=== PATIENT | male | born 1970 | race Caucasian/White ===

== ENCOUNTER → 2016-08-08 | Outpatient (CLI) | payer MEDICARE, MEDICAID ==
[~2016-08-08] MED LIST: /ONDA4TA IV; /THIA10TA OR; ACET65TA OR; ALLE25CA IV; AMBI10TA OR; AQUAOIN2 TOP; ATARAX OR; ATIV1TAB2 IV; ATIV1TAB2 OR; AZTREONAM IV; BACT800T5 PO; BISA10SU2 PR; CALAMINE TOP; CIPR25SS OR; CIPR500T89 PO; COLA100C PO; COLA100C2 OR; DESOWEN TOP; DULC5TAB PO; FLEEENE4 PR; FLEETS PR; HALDOL PO; HEPARIN FLUSH IV; HEPARIN SQ; KENALOG TOP; LEVA500T PO; MILKSUS OR; MULTIVIT PO; MYCOSTATIN SS; MYCOSTATIN SSP; NYST100024 TOP; NYSTATIN ORAL SS; No Historical Meds; PHEN1TAB80 PO; PRED10TA2 OR; REME30TA OR; REST15CA OR; SALINE FLUSH IV; SENN15TA2 OR; SENO8.6T5 OR; TEMA15CA2 OR; THERGRAN PO; THIA100T OR; VANCOMYCIN IV; VICO5TAB OR; VIMP150T PO; VIMP200T PO; VIMPAT PO; VISINE OU; VIST50CA OR; VITA100037 PO; VITA50003 PO; VITMTA PO; ZOLP10TA2 PO
[2016-08-08 09:40] LABS: BASO % 0.7 % (0.0-1.0); EOS # 0.2 K/mm3 (0.0-0.50); EOS % 5.4 % (0.0-3.0); LARGE UNSTAINED CELL # 0.1 K/mm3 (0.0-0.4); LARGE UNSTAINED CELL % 2.9 % (0.0-4.0); LYMPH # 1.2 K/mm3 (1.5-4.5); LYMPH % 30.2 % (24.0-44.0); MEAN CORPUSCULAR HEMOGLOBIN 31.6 pg (27.0-33.0); MEAN CORPUSCULAR HGB CONC 34.6 g/dl (32.0-36.5); MEAN CORPUSCULAR VOLUME 91.3 fl (80.0-96.0); MONO # 0.3 K/mm3 (0.0-0.8); MONO % 7.4 % (0.0-5.0); NEUTROPHILS # 2.2 K/mm3 (1.8-7.7); NEUTROPHILS % 53.4 % (36.0-66.0); PLATELET COUNT, AUTOMATED 193 k/mm3 (150-450); RED CELL DISTRIBUTION WIDTH 13.2 % (11.5-14.5)
[2016-08-08 09:46] LABS: ALBUMIN 3.8 GM/DL (3.2-5.2); ALBUMIN/GLOBULIN RATIO 1.03 (1.00-1.93); ALKALINE PHOSPHATASE 75 U/L (45-117); ALT/SGPT 29 U/L (12-78); ANION GAP 4 MEQ/L (8-16); AST/SGOT 16 U/L (15-37); BILIRUBIN,TOTAL 0.4 MG/DL (0.2-1.0); BLOOD UREA NITROGEN 14 MG/DL (7-18); CALCIUM LEVEL 9.3 MG/DL (8.5-10.1); CARBON DIOXIDE LEVEL 36 MEQ/L (21-32); CHLORIDE LEVEL 103 MEQ/L (98-107); CREATININE FOR GFR 0.63 MG/DL (0.70-1.30); GLOMERULAR FILTRATION RATE > 60.0 (>60); GLUCOSE, FASTING 78 MG/DL (70-105); SODIUM LEVEL 143 MEQ/L (136-145); TOTAL PROTEIN 7.5 GM/DL (6.4-8.2)
== END ==
LOC: M LAB 08:39
PROVIDERS: ATTEND Psychiatry & Neurology Neurology
DX: G40.009 Localization-related (focal) (partial) idiopathic epilepsy and epileptic syndromes with seizures of localized onset, not intractable, without status epilepticus (principal); S06.34 Traumatic hemorrhage of right cerebrum; G81.04 Flaccid hemiplegia affecting left nondominant side

== ENCOUNTER 2016-10-04 12:25 | Inpatient (IN) | payer MEDICARE, MEDICAID ==
[~2016-10-04] VITALS: Ht 172.7 cm; Wt 58.3 kg
[2016-10-04] MEDS ORDERED: VITA100037 PO (12:41)
[2016-10-04] MEDS ORDERED: LR 1,000 ML IV ONE ×2 (13:45→15:15)
[2016-10-04 14:54] LABS: DIFF SLIDE NUMBER 122; MEAN CORPUSCULAR HEMOGLOBIN 31.7 pg (27.0-33.0); MEAN CORPUSCULAR HGB CONC 34.4 g/dl (32.0-36.5); MEAN CORPUSCULAR VOLUME 92.1 fl (80.0-96.0); PLATELET COUNT, AUTOMATED 117 k/mm3 (150-450); RED CELL DISTRIBUTION WIDTH 13.8 % (11.5-14.5); WHITE BLOOD COUNT 16.7 K/mm3 (4.0-10.0)
[2016-10-04 15:04] LABS: BANDS 13 % (< 11); TOXIC VACUOLATION 1+
[2016-10-04 15:08] LABS: ALBUMIN 3.4 GM/DL (3.2-5.2); ALBUMIN/GLOBULIN RATIO 0.81 (1.00-1.93); ALKALINE PHOSPHATASE 102 U/L (45-117); ALT/SGPT 48 U/L (12-78); ANION GAP 9 MEQ/L (8-16); AST/SGOT 38 U/L (15-37); BILIRUBIN,TOTAL 0.4 MG/DL (0.2-1.0); BLOOD UREA NITROGEN 13 MG/DL (7-18); CALCIUM LEVEL 8.8 MG/DL (8.5-10.1); CARBON DIOXIDE LEVEL 30 MEQ/L (21-32); CHLORIDE LEVEL 100 MEQ/L (98-107); CREATININE FOR GFR 0.75 MG/DL (0.70-1.30); GLOMERULAR FILTRATION RATE > 60.0 (>60); GLUCOSE, FASTING 98 MG/DL (70-105); POTASSIUM SERUM 3.7 MEQ/L (3.5-5.1); SODIUM LEVEL 139 MEQ/L (136-145); TOTAL PROTEIN 7.6 GM/DL (6.4-8.2)
[2016-10-04] MEDS ORDERED: ACETAMINOPHEN TAB 650MG DOSE (2X325MG) PO ONE (16:30)
[2016-10-04] MEDS ORDERED: CIPROFLOXACIN 400 MG in APPROPRIATE DILUENT 1 EA IV ONE (16:30)
[2016-10-04] MEDS ORDERED: ONDANSETRON 4MG/2ML VIAL (J2405) IV PRN (17:15)
[2016-10-04] MEDS ORDERED: ACETAMINOPHEN TAB 650MG DOSE (2X325MG) PO PRN (17:15)
[2016-10-04] MEDS ORDERED: ONDANSETRON 4 MG TAB (S0181) PO PRN (17:15)
[2016-10-04] MEDS ORDERED: PERCOCET 5MG/325MG TAB PO PRN (17:15)
--- NOTE | 2016-10-04 17:38 | HPEPDOC ---
Medical History and Physical Date of Admission Oct 04, 2016 at 17:13 History and Physical HISTORY AND PHYSICAL Date of admission: 10/04/2016 PCP: Huy Callahan under Dr. Rajan Chief complaint: Not acting like his usual self HPI: 46-year-old male with history of traumatic brain injury as a child and resultant seizure disorder who was brought in to the emergency department by his brother and his caregiver because he had not been acting like himself. The brother and caregiver state that he usually passes the day doing puzzles and walks around with a cane. They state that he is usually able to answer questions with a simple yes or no. However, they noticed that yesterday he started being more lethargic and was just kind of pushing the puzzle pieces around rather than actually doing the puzzle. They also state that his favorite thing to do is eating and that yesterday and today he has hardly been eating anything. When they ask him if he is in any discomfort or pain, he points to his private area, but his caregiver tells me that he will frequently complain of being wet, 30, or other complaints and will simultaneously point to his private area. They also note, that the patient has had several falls recently where he hit his head. The caregiver states that several years ago, the patient was admitted for sepsis that turned out to be from an abscess in his prostate after an indwelling catheter. He said that at the time, the patient was in septic shock and was very sick, so he was worried when the patient was not acting like himself because he did not want him to become septic again. He denies any recent catheter use. Past medical history: History of traumatic brain injury as a child with resultant seizure disorder Past surgical history: Multiple surgeries to reconstruct his left leg following the trauma that left him with the TBI, drainage of prostate abscess several years ago Family history: His father recently of liver disease secondary to alcoholism. His mother at age 46 from a heart attack. Social history: The patient currently lives with a 24h caregiver and his brother Sin who is his legal guardian. Another brother lives across the street. The patient does not use any tobacco or alcohol. Allergies: Empire oil, penicillins, phenytoin Review of systems: Unable to be obtained secondary to the patient's TBI and inability to communicate consistently. However, his caregiver states that he has not had any fevers recently nor has he vomited. He does note, that he has been constipated. Otherwise, his symptoms are as documented in the HPI. Home meds: See below Physical exam: Vital signs: Vital Sign - Last 24 Hours 10/04/16 12:26 Temp 98.0 Pulse 118 Resp 17 B/P 100/66 Pulse Ox 98 O2 Delivery Room Air Gen.: awake, alert, no acute distress Head: small superficial laceration on left forehead, erythematous bump on right parietal area ENT: Moist mucous membranes Cardiovascular: RRR, no murmurs rubs or gallops Lungs: clear to auscultation bilaterally, no rales, rhonchi, or wheeze Abdomen: Soft, NT/ND, normal BS Extremities: No peripheral edema, LLE is in braces and is very thin Neuro: alert, limited speech abilities, kept saying "hungry, hungry" Psych: unable to assess Labs and radiology: See below White count 16.7 Lactate 2.8 Blood and urine cultures pending CT of the head shows only stable chronic changes Chest x-ray shows subtle left lower lobe opacity UA shows 2+ blood, 2+ leuk esterase, 55 WBCs, 1+ bacteria Assessment and plan: 46-year-old male with history of traumatic brain injury as a child and resultant seizure disorder who was brought in to the emergency department by his brother and his caregiver because he had not been acting like himself. He is admitted with a UTI, as well as possible community-acquired pneumonia. 1. UTI: The patient is afebrile, but he does have an elevated white count and elevated lactate. At this time, his blood pressure is stable and his mental status appears to be at baseline. A UA is concerning for infection with leuk esterase and WBCs. Of note, the UA had to be obtained by straight cath, so is possible that the blood we are seeing is from the cath. Blood and urine cultures are pending. We will start the patient on Levaquin, as well as IV fluids. Of note, the patient has a history of prostate abscess. If the patient does not show expected improvement on this treatment, it may be of value to do a CT of his pelvis and ensure that there is no abscess at this time. 2. Possible community-acquired pneumonia. Chest x-ray does mention a subtle left lower lobe opacity. However, the patient is not having any cough or other respiratory symptoms, nor is he requiring any oxygen. We have chosen Levaquin for his UTI, as this would also cover any pneumonia that may be represented on this chest x-ray. As mentioned above, blood and urine cultures are pending, and a repeat lactate will be obtained in several hours. 3. Constipation: The patient will be started on MiraLAX and Colace. If he has not had a bowel movement by tomorrow, will we could intensify this regimen. 4. Seizure disorder and history of TBI: Continue home vimpat. DVT prophylaxis: Lovenox Dispo: admit as an inpatient to the service of Dr. Estela Trimble CODE STATUS: The patient's legal guardian is his brother Sin Bush. I have called and discussed the situation with Sin, whose phone number is [phone] , and upon discussion of CODE STATUS, he revealed that the patient is DNR/DNI. Vital Signs see above Laboratory Data Labs 24H Laboratory Tests 2 10/04/16 14:38: Blood Urea Nitrogen 13, Creatinine 0.75, Sodium Level 139, Potassium Level 3.7, Chloride Level 100, Carbon Dioxide Level 30, Calcium Level 8.8, Aspartate Amino Transf (AST/SGOT) 38H, Alanine Aminotransferase (ALT/SGPT) 48, Alkaline Phosphatase 102, Total Bilirubin 0.4, Total Protein 7.6, Albumin 3.4, Albumin/ Globulin Ratio 0.81L, Anion Gap 9, Band Neutrophils 13H, Glomerular Filtration Rate > 60.0, Lymphocytes (Manual) 3L, Monocytes (Manual) 2, Neutrophils 82H, Platelet Estimate DECREASED, Toxic Vacuolation 1+ 10/04/16 14:39: Lactic Acid (Sepsis) 2.8*H 10/04/16 15:50: Urine Amorphous Sediment , Urine Appearance HAZY, Urine Color WAQAS, Urine pH 6.0, Urine Specific [place] 1.024, Urine Protein 2+H, Urine Glucose (UA) 2+H, Urine Ketones TRACEH, Urine Urobilinogen 2.0H, Urine Bilirubin NEGATIVE, Urine Leukocyte Esterase 2+H, Urine Bacteria (Auto) 1+H, Urine Blood 2+H, Urine Calcium Carbonate Cryst(Auto) , Urine Calcium Oxalate Cryst (Auto) , Urine Calcium Phosphate Christina (Auto) , Urine Cellular Casts , Urine Cystine Crystals , Urine Granular Casts (Auto) , Urine Hyaline Casts (Auto) 0, Urine Leucine Crystals , Urine Mucus (Auto) SMALL, Urine Nitrite NEGATIVE, Urine Oval Fat Bodies (Auto) , Urine RBC (Auto) 90H, Urine Renal Epithelial Cells , Urine Sperm (Auto) , Urine Squamous Epithelial Cells 0, Urine Transitional Epithelial Cells , Urine Trichomonas (Auto) , Urine Triple Phosphate Cryst (Auto) , Urine Tyrosine Crystals , Urine Uric Acid Crystals (Auto) , Urine WBC (Auto) 55H, Urine Waxy Casts (Auto) , Urine Yeast-Like Cells (Auto) CBC/BMP Laboratory Tests 10/04/16 14:38 Calcium Level 8.8, Aspartate Amino Transf (AST/SGOT) 38 H, Alanine Aminotransferase (ALT/SGPT) 48, Alkaline Phosphatase 102, Total Bilirubin 0.4, Total Protein 7.6, Albumin 3.4, Red Blood Count 4.82, Mean Corpuscular Volume 92.1, Mean Corpuscular Hemoglobin 31.7, Mean Corpuscular Hemoglobin Concent 34.4 , Red Cell Distribution Width 13.8 Microbiology Microbiology 10/04/16 Blood Culture, Received Pending 10/04/16 Urine Culture, Received Pending Home Medications Scheduled Lacosamide (Vimpat) 200 Mg Tab 200 MG PO BID Multivitamins *[facility] STOCK[facility]* (Thera M Plus *[facility] STOCK[facility]*) 1 Tab Tab 1 TAB PO DAILY Vitamin D (Vitamin D) 1,000 Unit Cap 1,000 UNIT PO DAILY Scheduled PRN (Phytoplex Z-Guard Skin Pr 57-17 %) 1 Pst Pst 1 PST TOP BID PRN PRN RASH APPLY TO SHINS Docusate Sodium (Colace) 100 Mg Cap 100 MG PO BID PRN PRN CONSTIPATION Allergies Coded Allergies: Phenytoin (Verified Allergy, Severe, RASH, 10/25/12) Penicillins (Verified Allergy, Mild, HIVES, 10/25/12) Empire Oil (Verified Adverse Reaction, Intermediate, DIARRHEA, 10/04/16) has explosive diarrhea when pt eats an entire can of corn, has had other corn products throughout his life without issue. MERVIN CHOUDHARY Oct 04, 2016 17:38
[2016-10-04] MEDS ORDERED: [UNRECOGNIZED DRUG - CODE] TOP (17:45)
[2016-10-04] MEDS ORDERED: DOCUSATE SODIUM 100 MG CAP PO PRN (19:15)
[2016-10-04 20:00] VITALS: BP 106/59
[2016-10-04] MEDS: MULTIVITAMINS/MINERALS THERAP 1 TAB PO SCH (20:29)
[2016-10-04] MEDS: LevoFLOXacin IV 750 MG in APPROPRIATE DILUENT 1 EA IV SCH (20:29)
[2016-10-04] MEDS: VITAMIN D 1,000 INTERNATIONAL UNITS TABLET PO SCH (20:29)
[2016-10-04] MEDS: LACOSAMIDE 50 MG TAB (VIMPAT) PO SCH (20:29)
[2016-10-04] MEDS: NS 1,000 ML IV SCH (20:31)
[2016-10-05] VITALS: BP 92/56
[2016-10-05 04:00] VITALS: BP 109/67
[2016-10-05 06:58] LABS: DIFF SLIDE NUMBER 76; MEAN CORPUSCULAR HEMOGLOBIN 31.4 pg (27.0-33.0); MEAN CORPUSCULAR HGB CONC 34.7 g/dl (32.0-36.5); MEAN CORPUSCULAR VOLUME 90.5 fl (80.0-96.0); RED CELL DISTRIBUTION WIDTH 13.7 % (11.5-14.5); WHITE BLOOD COUNT 14.9 K/mm3 (4.0-10.0)
--- NOTE | 2016-10-05 07:00 | REP ---
REASON: Headache, rule out intracranial hemorrhage. COMPARISON: 10/21/2014. There is stable left frontal lobe encephalomalacic change. There is deep white matter ischemic disease, status quo. There is an old unchanged lacunar infarct in the right frontal lobe deep white matter. There is no evidence of an acute intracranial hemorrhagic or nonhemorrhagic event. The ventricles and sulci are unchanged. There is no shift of the midline structures. There is no change in the appearance of the skull. There is no change in the appearance of the paranasal sinuses. IMPRESSION: Stable appearing chronic changes as described above. Signed by Frank Fulton DO 10/05/2016 12:05 P
--- NOTE | 2016-10-05 07:07 | REP ---
REASON: Cough and fever. COMPARISON: 07/25/2015. The patient is tilted and rotated to the left. There is a subtle focal opacity in the left CP angle causing minimal blunting. Lung osorio are otherwise clear and the right CP angle is sharp. The heart is not enlarged. The osseous structures are within normal limits. IMPRESSION: Possible subsegmental atelectasis versus early developing pneumonia in the left lower lobe as described above. Signed by Frank Fulton DO 10/05/2016 12:05 P
[2016-10-05 07:10] LABS: ANION GAP 6 MEQ/L (8-16); BLOOD UREA NITROGEN 9 MG/DL (7-18); CALCIUM LEVEL 8.6 MG/DL (8.5-10.1); CARBON DIOXIDE LEVEL 29 MEQ/L (21-32); CHLORIDE LEVEL 106 MEQ/L (98-107); CREATININE FOR GFR 0.68 MG/DL (0.70-1.30); GLOMERULAR FILTRATION RATE > 60.0 (>60); GLUCOSE, FASTING 86 MG/DL (70-105); MAGNESIUM LEVEL 1.6 MG/DL (1.8-2.4); POTASSIUM SERUM 3.6 MEQ/L (3.5-5.1); SODIUM LEVEL 141 MEQ/L (136-145)
[2016-10-05 07:26] LABS: PLATELET COUNT, AUTOMATED 87 k/mm3 (150-450)
[2016-10-05] MEDS: ENOXAPARIN 40 MG/0.4 ML SYRINGE (J1650) SC SCH (07:29)
[2016-10-05 07:32] LABS: BANDS 12 % (< 11)
[2016-10-05 08:00] VITALS: BP 96/58
[2016-10-05] MEDS: NS 1,000 ML IV SCH ×3 (08:16→20:13)
[2016-10-05] MEDS: VITAMIN D 1,000 INTERNATIONAL UNITS TABLET PO SCH (10:02)
[2016-10-05] MEDS: MIRALAX *UNIT DOSE* 17GM PACKET PO SCH (10:03)
[2016-10-05] MEDS: MULTIVITAMINS/MINERALS THERAP 1 TAB PO SCH (10:03)
[2016-10-05] MEDS: LACOSAMIDE 50 MG TAB (VIMPAT) PO SCH ×2 (10:03→20:13)
[2016-10-05 12:00] VITALS: BP 98/53
[2016-10-05] MEDS: MAG SULF 1GM/100ML (MAG RUN) 1 GM in APPROPRIATE DILUENT 1 EA IV SCH ×2 (12:09→13:23)
--- NOTE | 2016-10-05 12:13 | IPNPDOC ---
Date Seen The patient was seen on 10/05/16. Progress Note Subjective: Better this morning , almost back to baseline mental status, doing word searches, no fever this morning, ate breakfast, had good urine output. Vitals: Vital Signs Label Value Date Time Patient Temperature 98.1 degrees F 10/05/16 1200 Temperature Source Skin 10/05/16 1200 Pulse 111 10/05/16 1200 Respiratory Rate 18 bpm 10/05/16 1200 Blood Pressure Assessment 98/53 (68) 10/05/161199 Bedside Pulse Oximetry 97 % 10/05/161199 Item Value Date Time Oxygen Delivery Method Room Air 10/05/16 1200 Physical exam: Gen.: awake, alert, no acute distress Head: small superficial laceration on left forehead, erythematous bump on right parietal area ENT: Moist mucous membranes Cardiovascular: RRR, no murmurs rubs or gallops Lungs: clear to auscultation bilaterally, no rales, rhonchi, or wheeze Abdomen: Soft, NT/ND, normal BS Extremities: No peripheral edema, LLE is in braces and is very thin Neuro: alert, limited speech abilities, kept saying "hungry, hungry" Psych: unable to assess Assessment and plan: 46-year-old male with history of traumatic brain injury as a child and resultant seizure disorder who was brought in to the emergency department by his brother and his caregiver because he had not been acting like himself. He is admitted with a UTI, as well as possible community-acquired pneumonia. 1. UTI: The patient is afebrile, but he does have an elevated white count and elevated lactate. At this time, his blood pressure is stable and his mental status appears to be at baseline. A UA is concerning for infection with leuk esterase and WBCs. Of note, the UA had to be obtained by straight cath, so is possible that the blood we are seeing is from the cath. Blood and urine cultures are pending. We willcontinue Levaquin. Of note, the patient has a history of prostate abscess. If the patient does not show expected improvement on this treatment, it may be of value to do a CT of his pelvis and ensure that there is no abscess at this time. 2. Possible community-acquired pneumonia. Chest x-ray does mention a subtle left lower lobe opacity. However, the patient is not having any cough or other respiratory symptoms, nor is he requiring any oxygen. We have chosen Levaquin for his UTI, as this would also cover any pneumonia that may be represented on this chest x-ray. As mentioned above, blood and urine cultures are pending, and a repeat lactate will be obtained in several hours. 3. Constipation: The patient will be started on MiraLAX and Colace. If he has not had a bowel movement by tomorrow, will we could intensify this regimen. 4. Seizure disorder and history of TBI: Continue home vimpat. 5: Traumatic brain injury at age 11 years. 6. Sinus tachycardia DVT : TEDS, will hold heparin as thrombocytopenia. CODE STATUS: The patient's legal guardian is his brother Sin Bush. I have called and discussed the situation with Sin, whose phone number is [phone] , and upon discussion of CODE STATUS, he revealed that the patient is DNR/DNI. VS, I&O, 24H, Fishbone Vital Signs/I&O Vital Signs Date Time Temp Pulse Resp B/P Pulse Ox O2 Delivery O2 Flow Rate FiO2 10/05/16 12:00 98.1 111 18 98/53 97 Room Air I&O- Last 24 Hours up to 6 AM 10/05/16 05:59 Intake Total 240 ml Balance 240 ml Laboratory Data 24H LABS Laboratory Tests 2 10/04/16 14:38: Blood Urea Nitrogen 13, Creatinine 0.75, Sodium Level 139, Potassium Level 3.7, Chloride Level 100, Carbon Dioxide Level 30, Calcium Level 8.8, Aspartate Amino Transf (AST/SGOT) 38H, Alanine Aminotransferase (ALT/SGPT) 48, Alkaline Phosphatase 102, Total Bilirubin 0.4, Total Protein 7.6, Albumin 3.4, Albumin/ Globulin Ratio 0.81L, Anion Gap 9, Band Neutrophils 13H, Glomerular Filtration Rate > 60.0, Lymphocytes (Manual) 3L, Monocytes (Manual) 2, Neutrophils 82H, Platelet Estimate DECREASED, Toxic Vacuolation 1+ 10/04/16 14:39: Lactic Acid (Sepsis) 2.8*H 10/04/16 15:50: Urine Amorphous Sediment , Urine Appearance HAZY, Urine Color WAQAS, Urine pH 6.0, Urine Specific [place] 1.024, Urine Protein 2+H, Urine Glucose (UA) 2+H, Urine Ketones TRACEH, Urine Urobilinogen 2.0H, Urine Bilirubin NEGATIVE, Urine Leukocyte Esterase 2+H, Urine Bacteria (Auto) 1+H, Urine Blood 2+H, Urine Calcium Carbonate Cryst(Auto) , Urine Calcium Oxalate Cryst (Auto) , Urine Calcium Phosphate Christina (Auto) , Urine Cellular Casts , Urine Cystine Crystals , Urine Granular Casts (Auto) , Urine Hyaline Casts (Auto) 0, Urine Leucine Crystals , Urine Mucus (Auto) SMALL, Urine Nitrite NEGATIVE, Urine Oval Fat Bodies (Auto) , Urine RBC (Auto) 90H, Urine Renal Epithelial Cells , Urine Sperm (Auto) , Urine Squamous Epithelial Cells 0, Urine Transitional Epithelial Cells , Urine Trichomonas (Auto) , Urine Triple Phosphate Cryst (Auto) , Urine Tyrosine Crystals , Urine Uric Acid Crystals (Auto) , Urine WBC (Auto) 55H, Urine Waxy Casts (Auto) , Urine Yeast-Like Cells (Auto) 10/04/16 20:03: Lactic Acid (Sepsis) 1.2 10/05/16 06:34: Anion Gap 6L, Atypical Lymphocytes 3, Band Neutrophils 12H, Blood Urea Nitrogen 9, Creatinine 0.68L, Sodium Level 141, Potassium Level 3.6, Chloride Level 106, Carbon Dioxide Level 29, Calcium Level 8.6, Glomerular Filtration Rate > 60.0, Lymphocytes (Manual) 6L, Magnesium Level 1.6L, Monocytes (Manual) 7, Neutrophils 72, Platelet Estimate NORMAL, Red Blood Cell Morphology NORMAL CBC/BMP Laboratory Tests 10/04/16 14:38 Calcium Level 8.8, Aspartate Amino Transf (AST/SGOT) 38 H, Alanine Aminotransferase (ALT/SGPT) 48, Alkaline Phosphatase 102, Total Bilirubin 0.4, Total Protein 7.6, Albumin 3.4, Red Blood Count 4.82, Mean Corpuscular Volume 92.1, Mean Corpuscular Hemoglobin 31.7, Mean Corpuscular Hemoglobin Concent 34.4 , Red Cell Distribution Width 13.8 10/05/16 06:34 Calcium Level 8.6, Red Blood Count 4.25 L, Mean Corpuscular Volume 90.5, Mean Corpuscular Hemoglobin 31.4, Mean Corpuscular Hemoglobin Concent 34.7, Red Cell Distribution Width 13.7 Microbiology Microbiology 10/04/16 Blood Culture, Received Pending 10/04/16 Urine Culture, Received Pending ASHUTOSH HAM MD Oct 05, 2016 12:13
--- NOTE | 2016-10-05 13:34 | REP ---
Left foot series: Two views. History: Swelling and redness. Findings: AP and lateral views of the left foot demonstrate diffuse osteopenia and a pes equinus orientation suggesting neuromuscular disease. There is some irregularity at the tibiotalar articulation at the ankle. No fracture or bony erosive change is seen. No soft tissue gas or opaque foreign body noted. Impression: Diffuse osteopenia. No acute bony abnormality. Signed by Kurt Rhoades MD 10/05/2016 07:17 P
[2016-10-05 15:30] VITALS: BP 120/70
[2016-10-05] MEDS: LevoFLOXacin IV 750 MG in APPROPRIATE DILUENT 1 EA IV SCH (20:13)
[2016-10-05 22:00] VITALS: BP 134/71
[2016-10-06] MEDS: NS 1,000 ML IV SCH ×2 (05:57→20:49)
[2016-10-06 06:00] VITALS: BP 137/91
[2016-10-06 07:10] LABS: BASO % 0.1 % (0.0-1.0); EOS % 0.2 % (0.0-3.0); LARGE UNSTAINED CELL # 0.2 K/mm3 (0.0-0.4); LARGE UNSTAINED CELL % 1.6 % (0.0-4.0); LYMPH # 0.4 K/mm3 (1.5-4.5); LYMPH % 3.4 % (24.0-44.0); MEAN CORPUSCULAR HEMOGLOBIN 31.7 pg (27.0-33.0); MEAN CORPUSCULAR HGB CONC 34.6 g/dl (32.0-36.5); MEAN CORPUSCULAR VOLUME 91.5 fl (80.0-96.0); MONO # 0.5 K/mm3 (0.0-0.8); MONO % 3.6 % (0.0-5.0); NEUTROPHILS % 91.1 % (36.0-66.0); RED CELL DISTRIBUTION WIDTH 13.9 % (11.5-14.5); WHITE BLOOD COUNT 13.2 K/mm3 (4.0-10.0)
[2016-10-06 07:13] LABS: PLATELET COUNT, AUTOMATED 78 k/mm3 (150-450)
[2016-10-06 07:22] LABS: ANION GAP 9 MEQ/L (8-16); BLOOD UREA NITROGEN 8 MG/DL (7-18); CALCIUM LEVEL 7.9 MG/DL (8.5-10.1); CARBON DIOXIDE LEVEL 26 MEQ/L (21-32); CHLORIDE LEVEL 102 MEQ/L (98-107); CREATININE FOR GFR 0.55 MG/DL (0.70-1.30); GLOMERULAR FILTRATION RATE > 60.0 (>60); GLUCOSE, FASTING 89 MG/DL (70-105); MAGNESIUM LEVEL 1.6 MG/DL (1.8-2.4); POTASSIUM SERUM 3.3 MEQ/L (3.5-5.1); SODIUM LEVEL 137 MEQ/L (136-145)
[2016-10-06] MEDS: LACOSAMIDE 50 MG TAB (VIMPAT) PO SCH ×2 (08:23→20:50)
[2016-10-06] MEDS: MIRALAX *UNIT DOSE* 17GM PACKET PO SCH (08:23)
[2016-10-06] MEDS: MULTIVITAMINS/MINERALS THERAP 1 TAB PO SCH (08:23)
[2016-10-06] MEDS: VITAMIN D 1,000 INTERNATIONAL UNITS TABLET PO SCH (08:23)
[2016-10-06] MEDS: ENOXAPARIN 40 MG/0.4 ML SYRINGE (J1650) SC SCH (08:28)
[2016-10-06] MEDS ORDERED: MAG SULF 1GM/100ML (MAG RUN) 1 GM in APPROPRIATE DILUENT 1 EA IV ONE (11:00)
[2016-10-06] MEDS ORDERED: POTASSIUM CHLORIDE 10 MEQ SR TABLET PO ONE (11:00)
[2016-10-06 14:00] VITALS: BP 107/69
--- NOTE | 2016-10-06 14:14 | IPNPDOC ---
Subjective Date Seen The patient was seen on 10/06/16. Subjective Chief Complaint/HPI The patient is a 46-year-old male admitted with a reason for visit of UTI. Events since last encounter pt seen and examined, pt was resting comfortable, adult caregiver and brother were at bedside, no overnight events per nursing staff Objective Physical Examination General Exam: Positive: No Acute Distress Eye Exam: Positive: PERRLA Neck Exam: Positive: Supple Chest Exam: Positive: Clear to auscultation, Normal air movement Heart Exam: Positive: Rate Normal Abdomen Exam: Positive: Normal bowel sounds, Soft Extremity Exam: Positive: Normal pulses, Negative: Clubbing, Cyanosis, Edema Assessment /Plan Problems (1) Hypokalemia Status: Acute Problem Text: * will replace and recheck (2) Hypomagnesemia Status: Acute Problem Text: * replace and recheck (3) UTI (urinary tract infection) Status: Acute Problem Text: * ecoli, will switch to oral antibiotics (4) Traumatic brain injury Status: Chronic Plan/VTE VTE Prophylaxis Ordered?: Yes Plan/Urinary Catheter Reason for insertion/continuin: Critical Pt monitoring VS, I&O, 24H, [facility] Vital Signs/I&O Vital Signs Date Time Temp Pulse Resp B/P Pulse Ox O2 Delivery O2 Flow Rate FiO2 10/06/16 06:26 18 96 10/06/16 06:00 96.5 116 137/91 Room Air I&O- Last 24 Hours up to 6 AM 10/06/16 06:00 Intake Total 1830 ml Output Total 0 ml Balance 1830 ml Laboratory Data 24H LABS Laboratory Tests 2 10/06/16 06:11: Anion Gap 9, White Blood Count 13.2H, Red Blood Count 4.11L, Hemoglobin 13.0L, Hematocrit 37.6L, Mean Corpuscular Volume 91.5, Mean Corpuscular Hemoglobin 31.7 , Mean Corpuscular Hemoglobin Concent 34.6, Red Cell Distribution Width 13.9, Platelet Count 78L, Neutrophils (%) (Auto) 91.1H, Lymphocytes (%) (Auto) 3.4L, Monocytes (%) (Auto) 3.6, Eosinophils (%) (Auto) 0.2, Basophils (%) (Auto) 0.1, Neutrophils # (Auto) 12.0H, Lymphocytes # (Auto) 0.4L, Monocytes # (Auto) 0.5, Eosinophils # (Auto) 0.0, Basophils # (Auto) 0.0, Blood Urea Nitrogen 8, Creatinine 0.55L, Sodium Level 137, Potassium Level 3.3L, Chloride Level 102, Carbon Dioxide Level 26, Calcium Level 7.9L, Glomerular Filtration Rate > 60.0, Large Unclassified Cells # 0.2, Large Unclassified Cells % 1.6, Magnesium Level 1.6L CBC/BMP Laboratory Tests 10/06/16 06:11 Calcium Level 7.9 L, Red Blood Count 4.11 L, Mean Corpuscular Volume 91.5, Mean Corpuscular Hemoglobin 31.7, Mean Corpuscular Hemoglobin Concent 34.6, Red Cell Distribution Width 13.9, Neutrophils (%) (Auto) 91.1 H, Lymphocytes (%) (Auto) 3.4 L, Monocytes (%) (Auto) 3.6, Eosinophils (%) (Auto) 0.2, Basophils (%) (Auto ) 0.1, Neutrophils # (Auto) 12.0 H, Lymphocytes # (Auto) 0.4 L, Monocytes # ( Auto) 0.5, Eosinophils # (Auto) 0.0, Basophils # (Auto) 0.0 Microbiology Microbiology 10/04/16 Blood Culture - Preliminary, Resulted No growth after 24 hours . All specim... 10/04/16 Urine Culture - Final, Complete Escherichia Coli RENITA JUNG DO Oct 06, 2016 14:14
--- NOTE | 2016-10-06 15:03 | REP ---
Chest a sitting AP and lateral views: Comparison is 10/04/2016. There is increased density in the lower lobes on the lateral view as an interval change. This could be artifact from an incomplete inspiratory effort or could represent new lower lobe infiltrates. Correlate clinically. There are no pleural effusions. Cardiac size is normal. The deshawn, mediastinum, bony thorax are unremarkable except for scoliosis convex right. The patient is rotated. Impression: Possible interval occurrence of lower lobe infiltrates. Correlate clinically. Signed by Beau Soria MD 10/06/2016 02:55 P
[2016-10-06] MEDS: LevoFLOXacin 750 MG TABLET PO SCH (16:58)
[2016-10-06 22:00] VITALS: BP 122/77
[2016-10-07] MEDS: NS 1,000 ML IV SCH ×2 (05:51→16:48)
[2016-10-07 06:00] VITALS: BP 114/59
[2016-10-07] MEDS: LevoFLOXacin 750 MG TABLET PO SCH (06:07)
[2016-10-07 08:22] LABS: ANION GAP 8 MEQ/L (8-16); BLOOD UREA NITROGEN 8 MG/DL (7-18); CALCIUM LEVEL 7.7 MG/DL (8.5-10.1); CARBON DIOXIDE LEVEL 27 MEQ/L (21-32); CHLORIDE LEVEL 104 MEQ/L (98-107); CREATININE FOR GFR 0.59 MG/DL (0.70-1.30); GLOMERULAR FILTRATION RATE > 60.0 (>60); GLUCOSE, FASTING 99 MG/DL (70-105); MAGNESIUM LEVEL 1.7 MG/DL (1.8-2.4); POTASSIUM SERUM 3.5 MEQ/L (3.5-5.1); SODIUM LEVEL 139 MEQ/L (136-145)
[2016-10-07 08:36] LABS: BASO % 0.2 % (0.0-1.0); EOS # 0.1 K/mm3 (0.0-0.50); EOS % 0.8 % (0.0-3.0); LARGE UNSTAINED CELL # 0.2 K/mm3 (0.0-0.4); LARGE UNSTAINED CELL % 3.1 % (0.0-4.0); LYMPH # 0.9 K/mm3 (1.5-4.5); LYMPH % 9.2 % (24.0-44.0); MEAN CORPUSCULAR HEMOGLOBIN 31.4 pg (27.0-33.0); MEAN CORPUSCULAR HGB CONC 34.3 g/dl (32.0-36.5); MEAN CORPUSCULAR VOLUME 91.7 fl (80.0-96.0); MONO # 0.5 K/mm3 (0.0-0.8); MONO % 6.8 % (0.0-5.0); NEUTROPHILS # 5.6 K/mm3 (1.8-7.7); NEUTROPHILS % 79.9 % (36.0-66.0); RED CELL DISTRIBUTION WIDTH 14.2 % (11.5-14.5)
[2016-10-07 09:44] LABS: PLATELET COUNT, AUTOMATED 88 k/mm3 (150-450)
[2016-10-07] MEDS: VITAMIN D 1,000 INTERNATIONAL UNITS TABLET PO SCH (10:24)
[2016-10-07] MEDS: MULTIVITAMINS/MINERALS THERAP 1 TAB PO SCH (10:24)
[2016-10-07] MEDS: LACOSAMIDE 50 MG TAB (VIMPAT) PO SCH ×2 (10:25→21:07)
[2016-10-07] MEDS: MIRALAX *UNIT DOSE* 17GM PACKET PO SCH (10:25)
[2016-10-07 14:00] VITALS: BP 135/73
--- NOTE | 2016-10-07 20:13 | IPNPDOC ---
Subjective Date Seen The patient was seen on 10/07/16. Subjective Chief Complaint/HPI The patient is a 46-year-old male admitted with a reason for visit of UTI. General: Reports: ROS Unobtainable Objective Physical Examination General Exam: Positive: No Acute Distress Eye Exam: Positive: PERRLA Neck Exam: Positive: Supple Chest Exam: Positive: Clear to auscultation, Normal air movement Heart Exam: Positive: Rate Normal Abdomen Exam: Positive: Normal bowel sounds, Soft Extremity Exam: Positive: Normal pulses, Negative: Clubbing, Cyanosis, Edema Assessment /Plan Problems (1) UTI (urinary tract infection) Status: Acute Problem Text: * ecoli, continue antibiotics * will d/c in am (2) Hypokalemia Status: Resolved (3) Hypomagnesemia Status: Acute (4) Traumatic brain injury Status: Chronic Plan/VTE VTE Prophylaxis Ordered?: Yes Plan/Urinary Catheter Reason for insertion/continuin: Critical Pt monitoring VS, I&O, 24H, Fishbone Vital Signs/I&O Vital Signs Date Time Temp Pulse Resp B/P Pulse Ox O2 Delivery O2 Flow Rate FiO2 10/07/16 14:00 98.2 114 18 135/73 97 Room Air I&O- Last 24 Hours up to 6 AM 10/07/16 06:00 Intake Total 2640 ml Output Total 0 ml Balance 2640 ml Laboratory Data 24H LABS Laboratory Tests 2 10/07/16 06:52: Anion Gap 8, White Blood Count 7.0, Red Blood Count 4.10L, Hemoglobin 12.9L, Hematocrit 37.6L, Mean Corpuscular Volume 91.7, Mean Corpuscular Hemoglobin 31.4 , Mean Corpuscular Hemoglobin Concent 34.3, Red Cell Distribution Width 14.2, Platelet Count 88L, Neutrophils (%) (Auto) 79.9H, Lymphocytes (%) (Auto) 9.2L, Monocytes (%) (Auto) 6.8H, Eosinophils (%) (Auto) 0.8, Basophils (%) (Auto) 0.2 , Neutrophils # (Auto) 5.6, Lymphocytes # (Auto) 0.9L, Monocytes # (Auto) 0.5, Eosinophils # (Auto) 0.1, Basophils # (Auto) 0.0, Blood Urea Nitrogen 8, Creatinine 0.59L, Sodium Level 139, Potassium Level 3.5, Chloride Level 104, Carbon Dioxide Level 27, Calcium Level 7.7L, Glomerular Filtration Rate > 60.0, Large Unclassified Cells # 0.2, Large Unclassified Cells % 3.1, Magnesium Level 1.7L CBC/BMP Laboratory Tests 10/07/16 06:52 Calcium Level 7.7 L, Red Blood Count 4.10 L, Mean Corpuscular Volume 91.7, Mean Corpuscular Hemoglobin 31.4, Mean Corpuscular Hemoglobin Concent 34.3, Red Cell Distribution Width 14.2, Neutrophils (%) (Auto) 79.9 H, Lymphocytes (%) (Auto) 9.2 L, Monocytes (%) (Auto) 6.8 H, Eosinophils (%) (Auto) 0.8, Basophils (%) ( Auto) 0.2, Neutrophils # (Auto) 5.6, Lymphocytes # (Auto) 0.9 L, Monocytes # ( Auto) 0.5, Eosinophils # (Auto) 0.1, Basophils # (Auto) 0.0 Microbiology Microbiology 10/04/16 Blood Culture - Preliminary, Resulted No Growth after 72 hours. All specime... 10/04/16 Urine Culture - Final, Complete Escherichia Coli RENITA JUNG DO Oct 07, 2016 20:13
[2016-10-07 22:00] VITALS: BP 117/71
[2016-10-08] MEDS: NS 1,000 ML IV SCH ×2 (02:27→12:00)
[2016-10-08] MEDS: LevoFLOXacin 750 MG TABLET PO SCH (05:28)
[2016-10-08 06:00] VITALS: BP 117/64
[2016-10-08 06:50] LABS: BASO % 0.4 % (0.0-1.0); EOS # 0.1 K/mm3 (0.0-0.50); EOS % 2.4 % (0.0-3.0); LARGE UNSTAINED CELL # 0.3 K/mm3 (0.0-0.4); LARGE UNSTAINED CELL % 5.5 % (0.0-4.0); LYMPH % 19.1 % (24.0-44.0); MEAN CORPUSCULAR HEMOGLOBIN 30.4 pg (27.0-33.0); MEAN CORPUSCULAR HGB CONC 33.4 g/dl (32.0-36.5); MEAN CORPUSCULAR VOLUME 91.1 fl (80.0-96.0); MONO # 0.4 K/mm3 (0.0-0.8); MONO % 7.4 % (0.0-5.0); NEUTROPHILS # 3.5 K/mm3 (1.8-7.7); NEUTROPHILS % 65.1 % (36.0-66.0); PLATELET COUNT, AUTOMATED 109 k/mm3 (150-450); RED CELL DISTRIBUTION WIDTH 14.3 % (11.5-14.5); WHITE BLOOD COUNT 5.3 K/mm3 (4.0-10.0)
[2016-10-08 07:07] LABS: ANION GAP 9 MEQ/L (8-16); BLOOD UREA NITROGEN 11 MG/DL (7-18); CALCIUM LEVEL 8.1 MG/DL (8.5-10.1); CARBON DIOXIDE LEVEL 26 MEQ/L (21-32); CHLORIDE LEVEL 108 MEQ/L (98-107); CREATININE FOR GFR 0.63 MG/DL (0.70-1.30); GLOMERULAR FILTRATION RATE > 60.0 (>60); GLUCOSE, FASTING 90 MG/DL (70-105); MAGNESIUM LEVEL 1.9 MG/DL (1.8-2.4); POTASSIUM SERUM 3.8 MEQ/L (3.5-5.1); SODIUM LEVEL 143 MEQ/L (136-145)
[2016-10-08] MEDS ORDERED: LEVA750T PO (08:22)
[2016-10-08] MEDS: VITAMIN D 1,000 INTERNATIONAL UNITS TABLET PO SCH (09:54)
[2016-10-08] MEDS: MIRALAX *UNIT DOSE* 17GM PACKET PO SCH (09:54)
[2016-10-08] MEDS: LACOSAMIDE 50 MG TAB (VIMPAT) PO SCH (09:54)
[2016-10-08] MEDS: MULTIVITAMINS/MINERALS THERAP 1 TAB PO SCH (09:54)
--- NOTE | 2016-10-15 12:45 | DSES ---
DATE OF ADMISSION: 10/04/2016 DATE OF DISCHARGE: 10/08/2016 REASON FOR ADMISSION: Urinary tract infection (UTI). FINAL DIAGNOSES: 1. Urinary tract infection Escherichia (E) coli. 2. Hypokalemia. 3. Hypomagnesemia. 4. Traumatic brain injury. 5. Patient has a history of seizures. HISTORY OF PRESENT ILLNESS (HPI): Patient is a 46-year-old male with past medical history significant for traumatic brain injury resulting in seizure disorder presented to the emergency room with caregivers stating that he has not been acting himself. His brother and caregiver stated that he usually passes the day doing puzzles and walking around with a cane. However, they have noted that he has been unable to answer questions like at his baseline using simple yes or no. They have noted that he is becoming more lethargic, pushing the puzzles away. In the emergency room, he was noted to have some discomfort, pointing to his private area. Patient was found to have abnormal urinalysis. He was diagnosed with UTI and possible community-acquired pneumonia. Patient was started on antibiotics, intravenous (IV) Levaquin and was admitted under hospitalist service. HOSPITAL COURSE: Urine culture came back positive for E-coli, it was pansensitive, sensitive to Levaquin that patient was on and tolerating well. His leukocytosis that was initially 16.7 had resolved by the time of discharge to 5.3. Patient did not have any fevers during the hospitalization and prior to discharge patient was back to his baseline per the caregivers and his brother. His potassium was slightly low at some point at 3.3, which was replaced and his magnesium was also at 1.6, which was also replaced. On discharge, patient's electrolytes were within normal limits. He was back to baseline mentation. He was discharged to follow up with primary care provider. Diet soft. Activities as tolerated. Discharge medications include: - Levaquin 750 mg by mouth daily - Colace 100 mg by mouth twice a day as needed, constipation - Vimpat 200 mg by mouth twice a day - multivitamin one tablet by mouth daily - vitamin E 1000 units by mouth daily - Z-Guard skin preparation topically twice a day as needed, rash Discharge condition stable.
== END 2016-10-08 12:20 | disposition home or self-care (01) | DRG 690 ==
LOC: M ED 13:42 → M ED INP 17:13 → M MSPAV 10-05 15:15
PROVIDERS: ADMIT Hospitalist; ATTEND Internal Medicine
DX: N39.0 Urinary tract infection, site not specified (principal); K59.00 Constipation, unspecified; G40.909 Epilepsy, unspecified, not intractable, without status epilepticus; E83.42 Hypomagnesemia; E87.6 Hypokalemia; B96.20 Unspecified Escherichia coli [E. coli] as the cause of diseases classified elsewhere; Z66 Do not resuscitate; Z87.820 Personal history of traumatic brain injury; Z79.899 Other long term (current) drug therapy; Z88.0 Allergy status to penicillin; Z88.8 Allergy status to other drugs, medicaments and biological substances; Z91.018 Allergy to other foods

== ENCOUNTER 2016-10-24 09:36 | Inpatient (IN) | payer MEDICARE, MEDICAID ==
[~2016-10-24] VITALS: Ht 170.2 cm; Wt 59.1 kg
[~2016-10-24 09:36] MED LIST changes: -COLA100C PO; +COLA100C3 PO; +LEVA750T PO; +[UNRECOGNIZED DRUG - CODE] TOP
[2016-10-24] MEDS ORDERED: ONDANSETRON 4MG/2ML VIAL (J2405) IV ONE ×2 (10:15→11:15)
[2016-10-24] MEDS ORDERED: DILUENT IV ONE (10:15)
[2016-10-24] MEDS ORDERED: NS IV ONE (10:15)
--- NOTE | 2016-10-24 10:35 | REP ---
Clinical: Sepsis. Comparison: 10/06/2016. Findings: Mediastinum and cardiac silhouette are stable. Lung osorio demonstrate chronic changes. No obvious acute consolidation, effusion, or pneumothorax. Skeletal structures intact. Impression: Chronic stable changes. No acute cardiopulmonary process. Signed by Ronny Driver MD 10/24/2016 10:27 A
--- NOTE | 2016-10-24 10:51 | REP ---
Clinical: Altered mental status. Comparison: 10/04/2016. Findings: The ventricles, sulci, and cisterns are normal/stable in position and appearance. Wells-white differentiation is maintained. Subtle low density changes involving the right frontal lobe and bilateral basal ganglia are unchanged. No acute intracranial hemorrhage, mass/mass effect, pathology or trauma/injury. No evidence for acute infarction. No extra-axial fluid collection. Calvarium is intact. Paranasal sinuses and mastoid air cells are clear. Impression: Stable noncontrast head CT. No evidence for acute intracranial pathology or trauma/injury. Signed by Ronny Driver MD 10/24/2016 10:42 A
[2016-10-24] MEDS ORDERED: ISOVUE-370 76% 100ML VIAL (Q9967) As Ordered ONE (11:23)
--- NOTE | 2016-10-24 11:55 | REP ---
Clinical: Acute chest and abdominal pain. Technique: Axial contrast enhanced images from the thoracic inlet to the upper abdomen using 100 ml as the 370 intravenous contrast material with coronal and sagittal re-formations. Findings: The bilateral lung osorio are well-aerated and clear. No acute consolidation, nodule or mass lesion. No pleural effusion/reaction or pneumothorax. Tracheobronchial tree is patent. Mediastinum demonstrates normal thoracic aorta and heart/pericardium. Skeletal structures demonstrate scoliosis and exaggerated kyphosis without acute fracture / compression injury or subluxation. Impression: No acute mediastinal or pleuroparenchymal process. Signed by Ronny Driver MD 10/24/2016 11:47 A
--- NOTE | 2016-10-24 12:00 | REP ---
Clinical: Acute abdominal pain. Technique: Axial contrast enhanced images from the lung bases to the pubic symphysis using 100 ml Isovue 370 intravenous contrast material with coronal and sagittal re-formations. Comparison: 09/17/2011. Findings: Liver, spleen, pancreas, gallbladder, bilateral adrenal glands and kidneys are normal. The enteric system demonstrates fecal stasis and possible constipation. Normal terminal ileum and appendix identified in the right lower quadrant. Pelvis demonstrates normal bladder and age appropriate prostate/seminal vesicles. No pelvic fluid or ascites. No free air. No adenopathy. Abdominal aorta and vasculature normal. Musculoskeletal structures demonstrate degenerative changes primarily involving the L4-5 level. Lung bases are clear. Impression: 1. Moderate fecal stasis and constipation. 2. No free fluid. No adenopathy. No acute intra-abdominal or pelvic pathology otherwise noted. Signed by Ronny Driver MD 10/24/2016 11:52 A
[2016-10-24] MEDS ORDERED: LevoFLOXacin IV 750 MG in APPROPRIATE DILUENT 1 EA IV ONE (13:15)
[2016-10-24] MEDS ORDERED: DULC5TAB PO (13:35)
[2016-10-24 14:00] VITALS: BP 96/63
[2016-10-24] MEDS ORDERED: DOCUSATE SODIUM 100 MG CAP PO PRN (15:00)
[2016-10-24] MEDS ORDERED: ONDANSETRON 4MG/2ML VIAL (J2405) IV PRN (15:00)
[2016-10-24] MEDS: NS 1,000 ML IV SCH (15:56)
[2016-10-24 16:00] VITALS: BP 103/62
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
[2016-10-24] MEDS: MAG SULF 1GM/100ML (MAG RUN) 1 GM in APPROPRIATE DILUENT 1 EA IV SCH ×2 (17:51→21:12)
[2016-10-24] MEDS ORDERED: PROMETHAZINE INJ 25 MG/ML VIAL (J2550) IM ONE (18:00)
--- NOTE | 2016-10-24 18:36 | ECGEPIP ---
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
[2016-10-24 20:00] VITALS: BP 111/68
[2016-10-24] MEDS ORDERED: LACOSAMIDE 50 MG TAB (VIMPAT) PO SCH (21:00)
[2016-10-24] MEDS: SENOKOT S TAB PO SCH (21:38)
[2016-10-24 23:28] VITALS: BP 113/68
--- NOTE | 2016-10-25 02:05 | IPNPDOC ---
Text Note Date of Service The patient was seen on 10/25/16. NOTE Attending and resident were notified around 1:30 am patient has a change of neurological exam with right eye more sluggish reaction to light and a new left facial droop. Patient was seen and examined at the room. Patient's guardian also confirmed nurse's claim. When attending talked to guardian and interviewed the patient again however the left facial droop was no longer there. If patient has any further worsening neurological symptoms will consider to order CT of the head. Patient was discussed with Dr. Jarquin. Salvatore BRYANT, I+O Salvatore BRYANT, I+O Laboratory Tests 10/24/16 10:13 Red Blood Count 4.55, Mean Corpuscular Volume 95.4, Mean Corpuscular Hemoglobin 31.0, Mean Corpuscular Hemoglobin Concent 32.4, Red Cell Distribution Width 14.0 , Neutrophils (%) (Auto) 57.3, Lymphocytes (%) (Auto) 31.0, Monocytes (%) (Auto ) 6.4 H, Eosinophils (%) (Auto) 1.8, Basophils (%) (Auto) 0.6, Neutrophils # ( Auto) 3.0, Lymphocytes # (Auto) 1.8, Monocytes # (Auto) 0.3, Eosinophils # (Auto ) 0.1, Basophils # (Auto) 0.0 Vital Signs Date Time Temp Pulse Resp B/P Pulse Ox O2 Delivery O2 Flow Rate FiO2 10/24/16 23:28 97.4 66 18 113/68 98 Room Air I&O- Last 24 Hours up to 6 AM 10/25/16 06:00 Intake Total 1590 ml Output Total 250 ml Balance 1340 ml RAGHU ALEXANDER DO Oct 25, 2016 02:05
[2016-10-25] MEDS ORDERED: ASPIRIN 325 MG TAB PO ONE (03:15)
[2016-10-25] MEDS ORDERED: ATORVASTATIN 20 MG TAB PO ONE (03:30)
[2016-10-25] MEDS: NS 1,000 ML IV SCH (04:20)
[2016-10-25 04:21] VITALS: BP 115/66
--- NOTE | 2016-10-25 06:36 | IPN ---
DATE OF VISIT: 10/25/2016 Time patient was seen was around 2:00 a.m. The hospitalist team was paged by the nursing staff for concerning neurological symptoms. The patient has a history of traumatic brain injury (TBI) and was admitted for altered mental status. The patient was admitted on 10/24/2016 with symptoms of right eye deviation and facial droop. When I went into the room to examine the patient, the patient is alert and awake, and patient is nonverbal but he can understand questions and follow commands. During the examination, the patient persistently had right eye deviation to the right side and I cannot appreciate any significant left facial droop. I also talked to the patient's guardian and he stated that the left eye deviation finding is not the patient's baseline and the patient's facial droop is actually improving since admission. Brain MRI was performed in the late afternoon on 10/24/2016. The results came back for a small hyperintensive foci in the right brainstem. I called the consulting Dr. Escalante with regards to the possible stroke finding and recommended low dose Lipitor and aspirin. The patient will be reevaluated by the neurologist in a few hours.
[2016-10-25 08:00] VITALS: BP 98/63
[2016-10-25] MEDS ORDERED: POTASSIUM CHLORIDE 10 MEQ SR TABLET PO ONE (08:00)
[2016-10-25] MEDS: KCL 20MEQ in NS 1000ML 1,000 ML IV SCH ×2 (09:39→21:55)
[2016-10-25] MEDS: SENOKOT S TAB PO SCH ×2 (09:40→21:55)
[2016-10-25] MEDS: LACOSAMIDE 50 MG TAB (VIMPAT) PO SCH ×2 (09:40→21:55)
[2016-10-25] MEDS: VITAMIN D 1,000 INTERNATIONAL UNITS TABLET PO SCH (09:40)
[2016-10-25] MEDS: MULTIVITAMINS/MINERALS THERAP 1 TAB PO SCH (09:41)
[2016-10-25] MEDS: PROMETHAZINE INJ 25 MG/ML VIAL (J2550) IV PRN ×3 (10:03→23:37)
[2016-10-25 12:00] VITALS: BP 107/67
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
[2016-10-25 16:00] VITALS: BP 121/79
[2016-10-25 20:00] VITALS: BP 130/84
[2016-10-25] MEDS: HEPARIN SOD (PORCINE) 5000 UNITS/ML VIAL SQ SCH (21:56)
[2016-10-26] VITALS (7 sets, daily range): BP systolic 109–142; BP diastolic 56–86; PULSE 89
--- NOTE | 2016-10-26 05:31 | CR ---
DATE OF CONSULTATION: 10/25/2016 REFERRING PHYSICIAN: Dr. Tony Fields REASON FOR CONSULTATION: Altered mental status. HISTORY OF PRESENT ILLNESS: Bari Bush is a 46-year-old man who is well-known to our practice of neurology for his history of traumatic brain injury many years ago. He also a history of generalized tonic-clonic seizures due to his traumatic brain injury. He has been doing well on Vimpat. He was admitted a few weeks ago with sepsis. He was discharged home. He was at his baseline state of health until yesterday when his caregiver noted some trouble with his walking. This district fire management officer gave him a shower. He had difficulty swallowing food. His speech was garbled. Patient at his baseline uses a wheelchair. He also complained of dizziness whenever they moved him. He denies any headaches, neck pain, back pain, falls, loss of consciousness or head injuries. He denies any urinary incontinence. 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 CURRENT MEDICATIONS: - lacosamide, which was 200 mg by mouth twice a day, but its dose has been reduced to 150 mg by mouth twice a day - multivitamin - vitamin D - Colace ALLERGIES: PHENYTOIN, PENICILLIN, CORN OIL. FAMILY HISTORY: Mother had congestive heart failure and vascular disease. Father had liver cirrhosis. SOCIAL HISTORY: He denies smoking, alcohol or illicit drugs. REVIEW OF SYSTEMS: All systems were reviewed and were found to be noncontributory except as mentioned in the history present illness. PHYSICAL EXAMINATION: Temperature 95, pulse 65, respiratory rate 20, blood pressure 121/55, 95% saturations on room air. Heart: Regular rate and rhythm. Lungs: Clear to auscultation. Abdomen: Soft, nontender, nondistended. Neurological exam: Patient is awake, alert and oriented to place, person and year. He has dysarthria of speech. He has difficulty swallowing. He has right eye exotropia. He does have nystagmus, which is gaze evoked. He has right-sided facial weakness. Tongue and uvula are midline. Strength in his bilateral upper and lower extremities is 4-/5. Deep tendon flexes are 2+ throughout. Normal sensation. Gait could not be tested. He has right-sided dysmetria. DIAGNOSTIC STUDIES: His MRI scan of brain was reviewed and showed a small right pontomedullary lateral and posterior ischemic stroke. ASSESSMENT: 1. Right posterior and lateral pontomedullary ischemic stroke. 2. History of severe traumatic brain injury and post-traumatic epilepsy and seizures, not intractable 3. 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 PLAN: 1. Aspirin 325 mg by mouth daily. 2. Echocardiogram. 3. MRA brain and carotid ultrasound. 4. Vimpat 150 mg by mouth twice a day. Will wait for its level. 5. Follow with our office in 1-2 weeks after hospital discharge. He will need physical and occupational therapy and possibly rehabilitation as inpatient. 5. Swallow evaluation. He will remain on thickened and pureed diet for today and tomorrow until he does his swallow evaluation. 6. Follow with our office in 1-2 weeks after hospital discharge.
--- NOTE | 2016-10-26 07:44 | ECHO ---
DATE OF PROCEDURE: 10/25/2016 DATE OF : 1970 AGE: 46 REFERRING PROVIDER: Dr. Jeff. PATIENT LOCATION: Room 3230. REASON FOR ECHOCARDIOGRAM: Cerebrovascular accident (CVA). 2D MEASUREMENTS: IVS: 1.0 cm LV: 4.4 cm LVPW: 1.0 cm LA: 3.1 cm Aorta: 3.6 cm IVC: 1.9 cm DOPPLER MEASUREMENTS: Peak velocity across the aortic valve: 1.0 m/s Peak velocity across the LVOT: 1.1 m/s Mitral E: 0.96 Mitral A: 0.79 Ratio 1.2 Maximum tricuspid valve velocity: 2.1 m/s 2D COMMENTS: 1. Normal left ventricular size, wall thickness and normal global left ventricular systolic function. The estimated global left ventricular systolic ejection fraction is 60% to 65%. 2. Normal left atrium. Normal right atrium and right ventricle. 3. The atrial septum appeared to be normal without evidence of defect or shunt. 4. Normal aortic root. 5. Trace pericardial effusion noted posteriorly at the base of the ventricle, no evidence of cardiac tamponade. 6. The aortic valve, mitral valve, tricuspid valve, and pulmonic valve appear to be normal. The proximal pulmonary artery branches were not well visualized. 7. The inferior vena cava was normal in size, central venous pressure is most likely normal. DOPPLER: It detects trace mitral regurgitation and trace tricuspid regurgitation. The calculated pulmonary artery systolic pressure was normal. Left ventricular diastolic features appear to be normal. IMPRESSION: 1. Normal global left ventricular systolic and diastolic function. 2. Trace mitral regurgitation. 3. Trace tricuspid regurgitation with a normal calculated pulmonary artery systolic pressure. 4. Trace pericardial effusion noted posteriorly, no evidence of cardiac tamponade.
[2016-10-26] MEDS: KCL 20MEQ in NS 1000ML 1,000 ML IV SCH (08:26)
[2016-10-26] MEDS: ASPIRIN 325 MG TAB PO SCH (08:27)
[2016-10-26] MEDS: HEPARIN SOD (PORCINE) 5000 UNITS/ML VIAL SQ SCH ×2 (08:27→21:56)
[2016-10-26] MEDS: LACOSAMIDE 50 MG TAB (VIMPAT) PO SCH ×2 (08:27→21:56)
[2016-10-26] MEDS: SENOKOT S TAB PO SCH ×2 (08:27→21:56)
[2016-10-26] MEDS: VITAMIN D 1,000 INTERNATIONAL UNITS TABLET PO SCH (08:27)
[2016-10-26] MEDS: MULTIVITAMINS/MINERALS THERAP 1 TAB PO SCH (08:27)
[2016-10-26] MEDS ORDERED: ASPIRIN 81 MG CHEW TABLET PO SCH (09:00)
[2016-10-26] MEDS ORDERED: ASPIRIN 300 MG SUPP PR SCH (09:00)
[2016-10-26] MEDS ORDERED: MAG SULF 1GM/100ML (MAG RUN) 1 GM in APPROPRIATE DILUENT 1 EA IV SCH (09:00)
--- NOTE | 2016-10-26 11:52 | IPNPDOC ---
Subjective Date Seen The patient was seen on 10/26/16. Subjective Chief Complaint/HPI The patient is a 46-year-old male admitted with a reason for visit of Altered Mental State. Events since last encounter Mr. Bush appears to be in a good mood this morning. He denies being in any pain. He is accompanied in the room by his brother. He does have a good appetite , he ate breakfast, and his only request of me this morning was for dessert. Otherwise, he has no additional complaints at this time. Review of systems is limited by his difficulties in speech. General: Reports: ROS Unobtainable Objective Physical Examination General Exam: Positive: Alert, No Acute Distress Eye Exam: Positive: Conjunctiva & lids normal, Other Eye Symptoms (horizontal nystagmus to left eye; horizontal nystagmus with exotropia of the right eye), PERRLA ENT Exam: Positive: Atraumatic, Mucous membr. moist/pink, Nares Patent, Pharynx Normal, Tongue Midline, Negative: Pharyngeal Edema Neck Exam: Positive: Supple, Negative: JVD, Lymphadenopathy, thyromegaly Chest Exam: Positive: Clear to auscultation, Normal air movement Heart Exam: Positive: Bradycardic, Normal S1, Normal S2, Negative: Gallops, Murmurs, Rubs Telemetry: Positive: Bradycardia Abdomen Exam: Positive: Normal bowel sounds, Soft, Negative: Hepatospenomegaly, Mass, Tenderness Extremity Exam: Positive: Normal pulses, Negative: Clubbing, Cyanosis, Edema, Swelling, Tenderness Skin Exam: Positive: Nl turgor and temperature, Negative: Lesion, Rash Assessment /Plan Problems (1) Brainstem stroke Status: Acute Problem Text: The patient has been seen in consultation by neurology who recommended starting him on daily aspirin and statin. Otherwise, we will request a DNR to come and evaluate him, and in conjunction with her recommendations we will have physical therapy evaluate him to see whether or not he is appropriate to go to subacute rehabilitation or back to his usual level of care at home. (2) Altered mental state Status: Acute Response to Treatment: Improving Problem Text: He apparently appears to be improving and his mental status at this time. Neurology has seen the patient in consult, their recommendations are much appreciated. EEG, MRA with and without contrast is still pending. Seizure precautions He was seen and evaluated by speech therapy, who recommended a mechanical soft diet with regular/thin liquids Vimpat level still pending (3) Bradycardia Status: Acute Problem Text: He did have some bradycardia last night, continue monitoring via telemetry (4) Hypothermia Status: Resolved Problem Text: We'll continue to monitor his vital signs (5) Hypotension Status: Resolved Plan/VTE VTE Prophylaxis Ordered?: Yes (TEDs and sequentials) Plan/Urinary Catheter Reason for insertion/continuin: Critical Pt monitoring VS, I&O, 24H, Fishbone Vital Signs/I&O Vital Signs Date Time Temp Pulse Resp B/P Pulse Ox O2 Delivery O2 Flow Rate FiO2 10/26/16 08:00 98.8 88 18 120/73 96 Room Air I&O- Last 24 Hours up to 6 AM 10/26/16 06:00 Intake Total 1267 ml Balance 1267 ml Laboratory Data 24H LABS Laboratory Tests 2 10/26/16 04:16: Anion Gap 4L, Blood Urea Nitrogen 7, Creatinine 0.55L, Sodium Level 146H, Potassium Level 3.8, Chloride Level 113H, Carbon Dioxide Level 29, Calcium Level 8.1L, Glomerular Filtration Rate > 60.0, Magnesium Level 1.7L CBC/BMP Laboratory Tests 10/26/16 04:16 Calcium Level 8.1 L, Red Blood Count 3.80 L, Mean Corpuscular Volume 95.5, Mean Corpuscular Hemoglobin 31.4, Mean Corpuscular Hemoglobin Concent 32.8, Red Cell Distribution Width 14.3 Microbiology Microbiology 10/24/16 Blood Culture - Preliminary, Resulted No Growth after 48 hours. All Specime... 10/24/16 Blood Culture - Preliminary, Resulted No Growth after 48 hours. All Specime... 10/26/16 Respiratory Virus Panel (PCR) ([facility]) - Final, Complete 10/24/16 Influenza Virus Type A Antigen - Final, Complete 10/24/16 Influenza Virus Type B Antigen - Final, Complete 10/24/16 Urine Culture - Final, Complete GME ATTESTATION GME ATTESTATION My preceptor for this patient encounter was physically present in the building during the encounter and was fully available. As needed, all aspects of the patient interview, examination, medical decision making process, and medical care plan development were reviewed and approved by the preceptor. Preceptor is aware and concurs with the plan as stated in the body of this note and will attest to such by his/her cosignature. ATTENDING NOTE I have both independently examined this patient as well as reviewed the note. I have discussed in detail with the resident the findings and plan of treatment as documented in the residents note. I will continue to follow the patient and offer further guidance to the patients care as necessary during this hospital stay. Please note, d/w social work, given patient's disability and that the patient likely survive more than a year, MOLST form done by patient's guardian voided. Patient remained full code, unless patient's medical condition changed. ROLF Banks MD, DO Oct 26, 2016 11:52 SUHAIL HAMLIN MD Oct 26, 2016 16:48
--- NOTE | 2016-10-26 12:42 | REP ---
MRI BRAIN WITHOUT CONTRAST: HISTORY: Altered mental status. 3D [id number] MR angiography was performed at the level of the hopi of [place]. The examination is limited secondary to motion. There is no definite aneurysm, arteriovenous malformation or atherosclerotic lesion. The major intracranial vessels are patent. The vertebral arteries are equal in size. IMPRESSION: Limited examination demonstrating no definite aneurysm or arteriovenous malformation. Signed by John Hearn MD 10/26/2016 12:44 P
--- NOTE | 2016-10-26 13:33 | REP ---
MRA CAROTIDS WITHOUT AND WITH CONTRAST: HISTORY: Altered mental status. Contrast: ProHance 25 mL. Unenhanced 2D [id number] and contrast enhanced MR angiography were performed at the level of the carotid bifurcations. The distal common carotid arteries and origins of the external and internal carotid arteries are normal. The vertebral arteries are equal in size and patent. There are no atherosclerotic lesions. IMPRESSION: Normal MRA carotids. Signed by John Hearn MD 10/26/2016 01:35 P
[2016-10-26] MEDS: PROMETHAZINE INJ 25 MG/ML VIAL (J2550) IV PRN (14:46)
[2016-10-26] MEDS: ATORVASTATIN 20 MG TAB PO SCH (21:55)
[2016-10-26] MEDS: BISACODYL 5 MG TAB PO PRN (21:58)
[2016-10-27] VITALS (7 sets, daily range): BP systolic 93–133; BP diastolic 56–73; PULSE 89–95
--- NOTE | 2016-10-27 06:34 | EEG ---
DATE OF PROCEDURE: 10/26/2016 REFERRING PHYSICIAN: Dr. Kellen Jeff DIAGNOSIS: Altered mental status. EEG NUMBER: [id number]. HISTORY: Patient is a 46-year-old man with a history of traumatic brain injury who was admitted at [facility] due to altered mental status, swallowing difficulty and was found to have right-sided posterior and lateral pontomedullary stroke. He is currently on Vimpat, aspirin, Lipitor, multivitamin, vitamin D, etc. This EEG was done to rule out epileptic potential. INTERPRETATION: Patient was noted to be in mostly awake state during this EEG. Background rhythm consisted of 8-9 Hz alpha activity measuring 15-50 microvolts in amplitude, which was symmetric and reactive to eye opening. No sleep was achieved. Hyperventilation could not be performed. Bilateral temporal and left frontal intermittent theta slowing was noted. Rare left temporal sharp waves were also noted. Photic stimulation remained unremarkable. EKG revealed normal sinus rhythm. CONCLUSION: This EEG in mostly awake state is abnormal due to presence of left frontal and bitemporal focal slowing consistent with focal cortical structural or functional abnormality. In addition, rare left temporal epileptiform discharges were noted consistent with focal cortical structural or functional abnormality with epileptic potential. Clinical correlation is recommended.
[2016-10-27] MEDS ORDERED: POTASSIUM CHLORIDE 10 MEQ SR TABLET PO ONE (08:15)
[2016-10-27] MEDS: MAG SULF 1GM/100ML (MAG RUN) 1 GM in APPROPRIATE DILUENT 1 EA IV SCH ×2 (08:28→09:52)
[2016-10-27] MEDS: VITAMIN D 1,000 INTERNATIONAL UNITS TABLET PO SCH (08:28)
[2016-10-27] MEDS: SENOKOT S TAB PO SCH ×2 (08:28→21:00)
[2016-10-27] MEDS: LACOSAMIDE 50 MG TAB (VIMPAT) PO SCH ×2 (08:29→21:02)
[2016-10-27] MEDS: MULTIVITAMINS/MINERALS THERAP 1 TAB PO SCH (08:29)
[2016-10-27] MEDS: ASPIRIN 325 MG TAB PO SCH (08:29)
[2016-10-27] MEDS: HEPARIN SOD (PORCINE) 5000 UNITS/ML VIAL SQ SCH ×2 (08:30→21:03)
--- NOTE | 2016-10-27 11:13 | IPNPDOC ---
Subjective Date Seen The patient was seen on 10/27/16. Subjective Chief Complaint/HPI The patient is a 46-year-old male admitted with a reason for visit of Altered Mental State. Events since last encounter Mr. Bush is in a good mood this morning, when asked how he is feeling he gives me the thumbs up. Neither he nor his brother who is in the room with him has any complaints at this time. The nurse does report that he had some residual fluid left in his mouth last night which needed to be suctioned out, but otherwise he had no acute events overnight. He has not had any fevers, chills, or any other complaints. His review of systems is limited by his baseline mentation. His brother does mention that he usually does not have so much and drooling, phlegm, and difficulty swallowing at baseline. Objective Physical Examination General Exam: Positive: Alert, Cooperative, No Acute Distress Eye Exam: Positive: Conjunctiva & lids normal, Other Eye Symptoms (horizontal nystagmus to left eye; horizontal nystagmus with exotropia of the right eye) ENT Exam: Positive: Atraumatic, Mucous membr. moist/pink, Nares Patent, Pharynx Normal, Negative: Pharyngeal Edema Neck Exam: Positive: Supple, Negative: JVD, Lymphadenopathy, thyromegaly Chest Exam: Positive: Normal air movement, Other (he does have some phlegm in the back of his throat which makes auscultation of his lungs difficult) Heart Exam: Positive: Bradycardic, Normal S1, Normal S2, Negative: Gallops, Murmurs, Rubs Telemetry: Positive: Bradycardia Abdomen Exam: Positive: Normal bowel sounds, Soft, Negative: Hepatospenomegaly, Mass, Tenderness Extremity Exam: Positive: Normal pulses, Negative: Clubbing, Cyanosis, Edema, Swelling, Tenderness Skin Exam: Positive: Nl turgor and temperature, Negative: Lesion, Rash Neuro Exam: Positive: Other (he is 5 out of 5 strength in his right upper extremity and right lower extremity. 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 He appears to be has had the usual self with no complaints this morning. His temperature and other vital signs have remained within normal limits. He does have some increased phlegm, and some drooling, therefore we will take a portable chest x-ray to rule out aspiration at this time. (2) Brainstem stroke Status: Acute Problem Text: The patient has been seen in consultation by neurology who recommended starting him on daily aspirin and statin. Otherwise, we will request PM&R to come and evaluate him, and in conjunction with her recommendations we will have physical therapy evaluate him to see whether or not he is appropriate to go to subacute rehabilitation or back to his usual level of care at home. Currently, he is not quite and safe for discharge home at this time, therefore he will continue to work with physical therapy. He has shown interval improvement since his admission. Vasculitis and hypercoagulability lab works have been ordered as he is younger than 60 years of age (3) Altered mental state Status: Acute Response to Treatment: Improving Problem Text: He apparently appears to be improving and his mental status at this time. Neurology has seen the patient in consult, their recommendations are much appreciated. MRA with and without contrast is unremarkable. Seizure precautions He was seen and evaluated by speech therapy, who recommended a mechanical soft diet with regular/thin liquids Vimpat level still pending (4) Bradycardia Status: Resolved (5) Hypothermia Status: Resolved (6) Hypotension Status: Resolved (7) Hypomagnesemia Status: Acute Problem Text: Supplementation ordered (8) Hypokalemia Status: Acute Problem Text: Supplementation ordered Plan/VTE VTE Prophylaxis Ordered?: Yes (TEDs and sequentials) Plan/Urinary Catheter Reason for insertion/continuin: Critical Pt monitoring VS, I&O, 24H, [facility] Vital Signs/I&O Vital Signs Date Time Temp Pulse Resp B/P Pulse Ox O2 Delivery O2 Flow Rate FiO2 10/27/16 08:00 98.7 113 18 98/67 93 Room Air I&O- Last 24 Hours up to 6 AM 10/27/16 06:00 Intake Total 1190 ml Balance 1190 ml Laboratory Data 24H LABS Laboratory Tests 2 10/27/16 05:53: Anion Gap 8, Blood Urea Nitrogen 9, Creatinine 0.52L, Sodium Level 140, Potassium Level 3.4L, Chloride Level 105, Carbon Dioxide Level 27, Calcium Level 8.6, Glomerular Filtration Rate > 60.0, Magnesium Level 1.6L CBC/BMP Laboratory Tests 4/4/17 05:53 Calcium Level 8.6, Red Blood Count 4.28 L, Mean Corpuscular Volume 95.1, Mean Corpuscular Hemoglobin 31.1, Mean Corpuscular Hemoglobin Concent 32.7, Red Cell Distribution Width 14.1 Microbiology Microbiology 10/24/16 Blood Culture - Preliminary, Resulted No Growth after 48 hours. All Specime... 10/24/16 Blood Culture - Preliminary, Resulted No Growth after 72 hours. All specime... 10/26/16 Respiratory Virus Panel (PCR) ([facility]) - Final, Complete 10/24/16 Influenza Virus Type A Antigen - Final, Complete 10/24/16 Influenza Virus Type B Antigen - Final, Complete 10/24/16 Urine Culture - Final, Complete ROLF MONTGOMERY DO Oct 27, 2016 11:13
--- NOTE | 2016-10-27 12:25 | REP ---
PORTABLE CHEST: AP portable view of the chest is performed. COMPARISON: 10/24/2016 as well as other prior exams. There is mild bibasilar fibroatelectatic change without evidence of acute infiltrate. The heart is not significantly enlarged and the mediastinal silhouette is unchanged. IMPRESSION: No acute infiltrate. Signed by Beau Wells MD 10/27/2016 04:38 P
[2016-10-27] MEDS ORDERED: SLF 3 ML SYR IV PRN (16:45)
[2016-10-27] MEDS: BISACODYL 5 MG TAB PO PRN (18:26)
[2016-10-27] MEDS: ATORVASTATIN 20 MG TAB PO SCH (21:01)
[2016-10-27] MEDS: PROMETHAZINE 25 MG TAB PO PRN (21:02)
[2016-10-27] MEDS: SLF 3 ML SYR IV SCH (21:03)
[2016-10-28] VITALS (8 sets, daily range): BP systolic 90–126; BP diastolic 56–71
[2016-10-28] MEDS: SLF 3 ML SYR IV SCH ×3 (05:26→22:51)
[2016-10-28] MEDS ORDERED: SODIUM CHLORIDE 0.9% 1000 ML IV ONE (05:45)
--- NOTE | 2016-10-28 06:10 | REPUSA ---
CLINICAL HISTORY: Hypoxia. COMMENTS: Single view of the chest reveals airspace infiltrates in the right mid and lower lung zones. The hear t, mediastinum and pulmonary vessels appear normal. IMPRESSION: Airspace infiltrates in right mid and lower lung zones. Thank you for your kind referral of this patient.
[2016-10-28] MEDS: MEROPENEM INJ 1 GM in D5W MINI-BAG PLUS 100 ML IV SCH ×3 (07:01→22:53)
--- NOTE | 2016-10-28 07:36 | PHACANCOPD ---
PHARMACY VANCOMYCIN DOSING Pt Demographics Demographics Patient Age:46 , Weight:60.500 , Gender: male Adjusted Body Weight Date: 10/28/16, Adjusted Body Weight: Kg Events Past 24 Hours Events Past 24 Hours: YES: Elevation in WBC Vancomycin Vancomycin indication: MRSA COVERAGE Vancomycin Target Ranges: 15-20 mcg/ml Vancomycin Load Y/N: Yes Load Dose Date Time Vancomycin Load Dose: 1500MG Date: 10/28/16 Time: 0800 Vancomycin Dose Date: 10/28/16. Current Vancomycin Dose: [1G IV Q8H] Intermittent Dosing?: No Labs Labs Item Value Date Time White Blood Count 12.0 K/mm3 H 10/27/16 0553 White Blood Count 8.1 K/mm3 10/26/16 0416 White Blood Count 7.2 K/mm3 10/25/16 0414 Erythrocyte Sedimentation Rate 57 mm/hr H 10/27/16 1546 Creatinine 0.71 MG/DL 10/28/16 0620 Creatinine 0.52 MG/DL L 10/27/16 0553 Creatinine 0.55 MG/DL L 10/26/16 0416 Micro Microbiology 10/28/16 Blood Culture, Received Pending 10/28/16 Blood Culture, Received Pending 10/24/16 Blood Culture - Preliminary, Resulted No Growth after 72 hours. All specime... 10/24/16 Blood Culture - Preliminary, Resulted No Growth after 72 hours. All specime... 10/26/16 Respiratory Virus Panel (PCR) ([facility]) - Final, Complete 10/24/16 Influenza Virus Type A Antigen - Final, Complete 10/24/16 Influenza Virus Type B Antigen - Final, Complete 10/24/16 Urine Culture - Final, Complete Creatinine Clearance Date:10/28/16. Estimated Creatinine Clearance: ~[>100ml/min]. Pending Labs Vancomycin trough scheduled 10/29/16@0700 Assessment and Plan Maintaining Current Dose?: Yes Reason for dose change: No Dose Change Pharmacist Note Pharmacist Note Date: 10/28/16. Pharmacist note: Day #1 meropenem/vancomycin initiated with a 1500mg loading dose, followed by a maintenance regimen of 1g IV Q8H for empiric MRSA coverage - aiming for a goal trough of 15-20mcg/ml. WBC, ESR, and pulse are currently elevated, and the patient is febrile. 10/28/16 CXR revealed airspace infiltrates in the right mid and lower lung zones. No PMH of MRSA, but does have a hx of vanco use here at [facility] back in 2011. A vancomycin trough has been scheduled 10/29/16@0700, prior to the fourth dose. We will continue to monitor and make adjustments as needed. RADHA JORDAN PHARMACY Oct 28, 2016 07:36
[2016-10-28] MEDS ORDERED: BISACODYL 10 MG SUPP PR ONE (08:45)
[2016-10-28] MEDS: LACOSAMIDE 50 MG TAB (VIMPAT) PO SCH ×2 (09:00→20:49)
[2016-10-28] MEDS: ASPIRIN 325 MG TAB PO SCH (09:00)
[2016-10-28] MEDS: VITAMIN D 1,000 INTERNATIONAL UNITS TABLET PO SCH (09:00)
[2016-10-28] MEDS: HEPARIN SOD (PORCINE) 5000 UNITS/ML VIAL SQ SCH ×2 (09:00→20:49)
[2016-10-28] MEDS ORDERED: VANCOMYCIN HCL 500 MG in D5W MINI-BAG PLUS 100 ML IV ONE (09:00)
[2016-10-28] MEDS: SENOKOT S TAB PO SCH ×2 (09:00→20:50)
[2016-10-28] MEDS: MULTIVITAMINS/MINERALS THERAP 1 TAB PO SCH (09:00)
[2016-10-28] MEDS: MAG SULF 1GM/100ML (MAG RUN) 1 GM in APPROPRIATE DILUENT 1 EA IV SCH ×2 (10:00→11:06)
[2016-10-28] MEDS: VANCOMYCIN HCL 1,000 MG, VIAL MATE ADAPTER 1 EACH in D5W 250 ML IV SCH ×3 (10:18→23:28)
--- NOTE | 2016-10-28 11:48 | IPNPDOC ---
Subjective Date Seen The patient was seen on 10/28/16. Subjective Chief Complaint/HPI The patient is a 46-year-old male admitted with a reason for visit of Altered Mental State. Events since last encounter It appears that he had an aspiration event overnight, he desaturated, requiring Venturi mask and high flow oxygen. This morning he is on 6 L nasal cannula and continues to maintain saturations about 92-93%. He was empirically started on vancomycin and meropenem given his allergy to penicillins, and this could also be considered a healthcare associated pneumonia, although the inciting event is most likely an aspiration, this regimen appropriately covers both. When speaking with the patient this morning and ask him how he feels, he rubs his belly which his caregiver recognized as indicating that he was hungry. He does not express any complaints or concerns at this time, although his review of systems is significantly limited by his baseline mental status. General: Reports: ROS Unobtainable Objective Physical Examination General Exam: Positive: Alert, Cooperative, No Acute Distress Eye Exam: Positive: Conjunctiva & lids normal, Other Eye Symptoms (horizontal nystagmus to left eye; horizontal nystagmus with exotropia of the right eye) ENT Exam: Positive: Atraumatic, Mucous membr. moist/pink, Nares Patent, Pharynx Normal, Negative: Pharyngeal Edema Neck Exam: Positive: Supple, Negative: JVD, Lymphadenopathy, thyromegaly Chest Exam: Positive: Normal air movement, Other (lungs sound clear, however he does make a significant amount of tracheal/pharyngeal breathing noises), Rhonchi, Negative: Diminished, Rales, Wheezing Heart Exam: Positive: Normal S1, Normal S2, Rate Normal, Negative: Gallops, Murmurs, Rubs Telemetry: Positive: No significant arrhythmia, Sinus Abdomen Exam: Positive: Normal bowel sounds, Soft, Negative: Hepatospenomegaly, Mass, Tenderness Extremity Exam: Positive: Normal pulses, Negative: Clubbing, Cyanosis, Edema, Swelling, Tenderness Skin Exam: Positive: Nl turgor and temperature, Negative: Lesion, Rash Neuro Exam: Positive: Other (he is 5 out of 5 strength in his right upper extremity and right lower extremity. 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 Empiric coverage with vancomycin and meropenem was initiated during the night on 10/28/2016. If cultures continue to be negative, we may narrow this in a few days. We will do a MRSA screen at this time as well. Also, given the fact that his family has expressed a desire to make him DNR/DNI , and with his evolving situation which appears as though he is unable to appropriately protect his airway, and he has a stroke of undetermined etiology, we will work with PFS and to start the necessary paperwork in order to enable us to legally make him a DNR/DNI. (2) Brainstem stroke Status: Acute Problem Text: The patient has been seen in consultation by neurology who recommended starting him on daily aspirin and statin. Otherwise, we will request PM&R to come and evaluate him, and in conjunction with her recommendations we will have physical therapy evaluate him to see whether or not he is appropriate to go to subacute rehabilitation or back to his usual level of care at home. Vasculitis and hypercoagulability lab works have been ordered as he is younger than 60 years of age. Screening is also been performed for diabetes, lipid profile, cardiac etiology of emboli, atherosclerotic workup for carotids and brain. There are some results still pending, however the ones that have come back so far do not indicate a clear etiology for his stroke. (3) Constipation Status: Acute Problem Text: Suppository ordered, and continue with the remainder about current regimen. If suppository is ineffective, we may consider administering an enema (4) Hypomagnesemia Status: Acute Problem Text: Supplementation ordered (5) Bradycardia Status: Resolved (6) Hypothermia Status: Resolved (7) Hypotension Status: Resolved (8) Hypokalemia Status: Resolved (9) Leukocytosis Status: Resolved (10) Altered mental state Status: Resolved Problem Text: Neurology has seen the patient in consult, their recommendations are much appreciated. MRA with and without contrast is unremarkable. Seizure precautions Vimpat level within normal limits Plan/VTE VTE Prophylaxis Ordered?: Yes (TEDs and sequentials) Plan/Urinary Catheter Reason for insertion/continuin: Critical Pt monitoring VS, I&O, 24H, Fishbone Vital Signs/I&O Vital Signs Date Time Temp Pulse Resp B/P Pulse Ox O2 Delivery O2 Flow Rate FiO2 10/28/16 08:00 98.3 113 20 118/65 92 Nasal Cannula 4.0 10/28/16 06:00 40 I&O- Last 24 Hours up to 6 AM 10/28/16 06:00 Intake Total 900 ml Output Total 0 ml Balance 900 ml Laboratory Data 24H LABS Laboratory Tests 2 10/27/16 15:46: Erythrocyte Sedimentation Rate 57H 10/28/16 06:00: Estimated Mean Plasma Glucose 94, Hemoglobin A1c 4.9 10/28/16 06:20: Blood Urea Nitrogen 15#, Creatinine 0.71, Sodium Level 141, Potassium Level 3.8 , Chloride Level 107, Carbon Dioxide Level 28, Calcium Level 8.0L, Aspartate Amino Transf (AST/SGOT) 14L, Alanine Aminotransferase (ALT/SGPT) 21, Alkaline Phosphatase 83, Total Bilirubin 0.5, Triglycerides Level 66, Cholesterol Level 89, HDL Cholesterol 39L, LDL Cholesterol 36.8, Total Protein 6.4, Albumin 2.4L, Albumin/Globulin Ratio 0.60L, Anion Gap 6L, Cholesterol/HDL Ratio 2.282, Glomerular Filtration Rate > 60.0, Magnesium Level 1.6L, Non-HDL Cholesterol ( LDL + VLDL) 50, Thyroid Stimulating Hormone (TSH) 0.845 10/28/16 06:21: Band Neutrophils 1, Eosinophils (Manual) 2, Lactic Acid Level 1.0, Lymphocytes ( Manual) 22, Monocytes (Manual) 6, Neutrophils 69, Platelet Estimate NORMAL, Red Blood Cell Morphology NORMAL CBC/BMP Laboratory Tests 10/28/16 06:20 Calcium Level 8.0 L, Aspartate Amino Transf (AST/SGOT) 14 L, Alanine Aminotransferase (ALT/SGPT) 21, Alkaline Phosphatase 83, Total Bilirubin 0.5, Triglycerides Level 66, Cholesterol Level 89, HDL Cholesterol 39 L, LDL Cholesterol 36.8, Total Protein 6.4, Albumin 2.4 L 10/28/16 06:21 Microbiology Microbiology 10/28/16 Blood Culture, Received Pending 10/28/16 Blood Culture, Received Pending 10/24/16 Blood Culture - Preliminary, Resulted No Growth after 72 hours. All specime... 10/24/16 Blood Culture - Preliminary, Resulted No Growth after 72 hours. All specime... 10/26/16 Respiratory Virus Panel (PCR) ([facility]) - Final, Complete 10/24/16 Influenza Virus Type A Antigen - Final, Complete 10/24/16 Influenza Virus Type B Antigen - Final, Complete 10/24/16 Urine Culture - Final, Complete ROLF MONTGOMERY DO Oct 28, 2016 11:48
[2016-10-28] MEDS: PROMETHAZINE 25 MG TAB PO PRN (20:49)
[2016-10-28] MEDS: ATORVASTATIN 20 MG TAB PO SCH (20:49)
[2016-10-29 04:48] VITALS: BP 117/59
[2016-10-29] MEDS: PROMETHAZINE 25 MG TAB PO PRN ×3 (05:10→22:49)
[2016-10-29] MEDS: SLF 3 ML SYR IV SCH ×3 (05:10→22:50)
[2016-10-29] MEDS: MEROPENEM INJ 1 GM in D5W MINI-BAG PLUS 100 ML IV SCH ×3 (05:10→22:50)
[2016-10-29] MEDS: VANCOMYCIN HCL 1,000 MG, VIAL MATE ADAPTER 1 EACH in D5W 250 ML IV SCH ×2 (07:52→15:37)
[2016-10-29 08:00] VITALS: BP 104/66
[2016-10-29] MEDS ORDERED: E-Z PAQUE 60% w/v SUSP 355ML BOTTLE As Ordered ONE (09:00)
[2016-10-29] MEDS ORDERED: VARIBAR PUDDING 40% w/v 230ML TUBE As Ordered ONE (09:00)
[2016-10-29] MEDS ORDERED: VARIBAR NECTAR 40% w/v 240ML SUSP BTL As Ordered ONE (09:00)
[2016-10-29] MEDS: SENOKOT S TAB PO SCH ×2 (10:01→22:49)
[2016-10-29] MEDS: LACOSAMIDE 50 MG TAB (VIMPAT) PO SCH ×2 (10:01→22:49)
[2016-10-29] MEDS: MULTIVITAMINS/MINERALS THERAP 1 TAB PO SCH (10:02)
[2016-10-29] MEDS: VITAMIN D 1,000 INTERNATIONAL UNITS TABLET PO SCH (10:02)
[2016-10-29] MEDS: ASPIRIN 325 MG TAB PO SCH (10:02)
[2016-10-29] MEDS: HEPARIN SOD (PORCINE) 5000 UNITS/ML VIAL SQ SCH ×2 (10:03→22:50)
[2016-10-29] MEDS: BISACODYL 5 MG TAB PO PRN (10:07)
[2016-10-29 11:08] VITALS: BP 110/56
--- NOTE | 2016-10-29 11:58 | REP ---
MODIFIED BARIUM SWALLOW: Cine fluoroscopy. HISTORY: Dysphasia. FINDINGS: The study was performed in conjunction with the swallowing therapist. The patient was given barium mixtures of varying texture and lateral video fluoroscopy was provided. The fluoroscopy time was 1 minute 10 seconds. There was some laryngeal penetration, with thin texture barium liquids. No other discoordination of barium swallow was observed. No tracheal aspiration was seen. Signed by Kurt Rhoades MD 10/29/2016 05:35 P
--- NOTE | 2016-10-29 14:43 | PHACANCOPD ---
PHARMACY VANCOMYCIN DOSING Pt Demographics Demographics Patient Age:46 , Weight:59.500 , Gender: male Adjusted Body Weight Date: 10/28/16, Adjusted Body Weight: Kg Events Past 24 Hours Events Past 24 Hours: NO: Change in CrCl, Dialysis, Diuretic Therapy, Elevation in WBC, Fever, Other, Pending Diagnostics, Pending Procedures Vancomycin Vancomycin indication: MRSA COVERAGE Vancomycin Target Ranges: 15-20 mcg/ml Vancomycin Load Y/N: Yes Load Dose Date Time Vancomycin Load Dose: 1500MG Date: 10/28/16 Time: 0800 Vancomycin Dose Date: 10/29/16. Current Vancomycin Dose: [1G IV Q8H] Date: 10/28/16. Current Vancomycin Dose: [1G IV Q8H] Intermittent Dosing?: No Labs Labs Item Value Date Time White Blood Count 9.2 K/mm3 10/28/16 0621 White Blood Count 9.7 K/mm3 10/29/16 0642 Creatinine 0.52 MG/DL L 10/29/16 0642 Creatinine 0.71 MG/DL 10/28/16 0620 Vancomycin Level Trough 15.5 UG/ML 10/29/16 0642 Micro Microbiology 10/28/16 Blood Culture - Preliminary, Resulted No growth after 24 hours . All specim... 10/28/16 Blood Culture - Preliminary, Resulted No growth after 24 hours . All specim... 10/24/16 Blood Culture - Final, Complete NO GROWTH AFTER 5 DAYS 10/24/16 Blood Culture - Final, Complete NO GROWTH AFTER 5 DAYS 10/26/16 Respiratory Virus Panel (PCR) ([facility]) - Final, Complete 10/24/16 Influenza Virus Type A Antigen - Final, Complete 10/24/16 Influenza Virus Type B Antigen - Final, Complete 10/24/16 Urine Culture - Final, Complete Creatinine Clearance Date:10/28/16. Estimated Creatinine Clearance: ~[>100ml/min]. Pending Labs Vancomycin trough scheduled 10/29/16@0700 Assessment and Plan Maintaining Current Dose?: Yes Reason for dose change: No Dose Change Pharmacist Note Pharmacist Note 10/29: The patient's trough came back at 15.5 today. He will be continued on Vancomycin 1gm IV q8h. So far all his micro negative. If everything remains negative we will recommend stopping therapy. We will continue to monitor and make adjustments as necessary. Date: 10/28/16. Pharmacist note: Day #1 meropenem/vancomycin initiated with a 1500mg loading dose, followed by a maintenance regimen of 1g IV Q8H for empiric MRSA coverage - aiming for a goal trough of 15-20mcg/ml. WBC, ESR, and pulse are currently elevated, and the patient is febrile. 10/28/16 CXR revealed airspace infiltrates in the right mid and lower lung zones. No PMH of MRSA, but does have a hx of vanco use here at [facility] back in 2011. A vancomycin trough has been scheduled 10/29/16@0700, prior to the fourth dose. We will continue to monitor and make adjustments as needed. ERROL DAWN PHARMACY Oct 29, 2016 14:43
[2016-10-29 16:00] VITALS: BP 112/67
--- NOTE | 2016-10-29 17:16 | IPNPDOC ---
Subjective Date Seen The patient was seen on 10/29/16. Subjective Chief Complaint/HPI The patient is a 46-year-old male admitted with a reason for visit of Altered Mental State. Events since last encounter He is once again in a good mood this morning. As a matter fact he does appear to be a little more alert and interactive. When asked how he is feeling he rubs his stomach indicating that he is hungry. Otherwise, he does not indicate any additional complaints. His brother is in the room with him once again today, and does not have any additional questions at this time. General: Reports: ROS Unobtainable Objective Physical Examination General Exam: Positive: Alert, No Acute Distress Eye Exam: Positive: Conjunctiva & lids normal, Other Eye Symptoms (horizontal nystagmus to left eye; horizontal nystagmus with exotropia of the right eye), PERRLA ENT Exam: Positive: Atraumatic, Mucous membr. moist/pink, Nares Patent, Pharynx Normal, Tongue Midline, Negative: Pharyngeal Edema Neck Exam: Positive: Supple, Negative: JVD, Lymphadenopathy, thyromegaly Chest Exam: Positive: Clear to auscultation, Normal air movement, Other (he does have many pharyngeal/vocal noises making auscultation of the chest more difficult) Heart Exam: Positive: Normal S1, Normal S2, Rate Normal, Regular Rhythm, Negative: Gallops, Murmurs, Rubs Telemetry: Positive: No significant arrhythmia, Sinus Abdomen Exam: Positive: Normal bowel sounds, Soft, Negative: Hepatospenomegaly, Mass, Tenderness Extremity Exam: Positive: Normal pulses, Negative: Clubbing, Cyanosis, Edema, Swelling, Tenderness Skin Exam: Positive: Nl turgor and temperature, Negative: Lesion, Rash Psych Exam: Positive: Mood NL, Negative: Mental status NL Assessment /Plan Problems (1) Aspiration pneumonia Status: Acute Problem Text: Currently swallow was performed this morning. Laryngeal penetration does occur intermittently, however no aspiration was noted. Speech therapy recommends upright positioning for oral intake, slow pace feeding, alternating mechanical soft with thin liquids. They're discouraging using a sippy cup or unrestricted thin liquids. Empiric coverage with vancomycin and meropenem was initiated during the night on 10/28/2016. If cultures continue to be negative, we may narrow this in a few days. MRSA screen still pending. Labs and vital signs continue to be reassuring. Also, given the fact that his family has expressed a desire to make him DNR/DNI , and with his evolving situation which appears as though he is unable to appropriately protect his airway, and he has a stroke of undetermined etiology, we will work with PFS and to start the necessary paperwork in order to enable us to legally make him a DNR/DNI. At present he continues to be a full code until such paperwork has been completed. (2) Brainstem stroke Status: Acute Problem Text: Continue with evaluation per PT as to whether he is able to return home with prior level of services, or if he will need subacute rehabilitation. The patient has been seen in consultation by neurology who recommended starting him on daily aspirin and statin. Vasculitis and hypercoagulability lab works have been ordered as he is younger than 60 years of age. Screening is also been performed for diabetes, lipid profile, cardiac etiology of emboli, atherosclerotic workup for carotids and brain. There are some results still pending, however the ones that have come back so far do not indicate a clear etiology for his stroke. (3) Constipation Status: Acute Problem Text: Bowel movement was achieved with suppository. Continue to monitor. (4) Hypomagnesemia Status: Resolved (5) Bradycardia Status: Resolved (6) Hypothermia Status: Resolved (7) Hypotension Status: Resolved (8) Hypokalemia Status: Resolved (9) Leukocytosis Status: Resolved (10) Altered mental state Status: Resolved Problem Text: Neurology has seen the patient in consult, their recommendations are much appreciated. MRA with and without contrast is unremarkable. Seizure precautions Vimpat level within normal limits Plan/VTE VTE Prophylaxis Ordered?: Yes (TEDs and sequentials) Plan/Urinary Catheter Reason for insertion/continuin: Critical Pt monitoring VS, I&O, 24H, Fishbone Vital Signs/I&O Vital Signs Date Time Temp Pulse Resp B/P Pulse Ox O2 Delivery O2 Flow Rate FiO2 10/29/16 16:00 97.9 64 18 112/67 90 Nasal Cannula 2.0 10/28/16 06:00 40 I&O- Last 24 Hours up to 6 AM 10/29/16 06:00 Intake Total 1470 ml Output Total 0 ml Balance 1470 ml Laboratory Data 24H LABS Laboratory Tests 2 10/29/16 06:42: Anion Gap 7L, Blood Urea Nitrogen 10, Creatinine 0.52L, Sodium Level 141, Potassium Level 3.7, Chloride Level 105, Carbon Dioxide Level 29, Calcium Level 8.4L, Glomerular Filtration Rate > 60.0, Magnesium Level 1.8, Vancomycin Level Trough 15.5 CBC/BMP Laboratory Tests 10/29/16 06:42 Calcium Level 8.4 L, Red Blood Count 3.93 L, Mean Corpuscular Volume 93.3, Mean Corpuscular Hemoglobin 31.0, Mean Corpuscular Hemoglobin Concent 33.3, Red Cell Distribution Width 13.8 Microbiology Microbiology 10/28/16 Blood Culture - Preliminary, Resulted No growth after 24 hours . All specim... 10/28/16 Blood Culture - Preliminary, Resulted No growth after 24 hours . All specim... 10/24/16 Blood Culture - Final, Complete NO GROWTH AFTER 5 DAYS 10/24/16 Blood Culture - Final, Complete NO GROWTH AFTER 5 DAYS 10/26/16 Respiratory Virus Panel (PCR) ([facility]) - Final, Complete 10/24/16 Influenza Virus Type A Antigen - Final, Complete 10/24/16 Influenza Virus Type B Antigen - Final, Complete 10/24/16 Urine Culture - Final, Complete ROLF MONTGOMERY DO Oct 29, 2016 17:16
[2016-10-29 20:48] VITALS: BP 109/70
[2016-10-29] MEDS: ATORVASTATIN 20 MG TAB PO SCH (22:49)
[2016-10-30] MEDS: VANCOMYCIN HCL 1,000 MG, VIAL MATE ADAPTER 1 EACH in D5W 250 ML IV SCH ×3 (00:11→15:43)
[2016-10-30 00:39] VITALS: BP 126/80
[2016-10-30 05:13] VITALS: BP 118/71
[2016-10-30] MEDS: SLF 3 ML SYR IV SCH ×3 (05:28→22:05)
[2016-10-30] MEDS: MEROPENEM INJ 1 GM in D5W MINI-BAG PLUS 100 ML IV SCH ×3 (05:28→22:05)
[2016-10-30] MEDS: PROMETHAZINE 25 MG TAB PO PRN ×2 (06:17→22:10)
[2016-10-30 07:29] VITALS: BP 115/70
[2016-10-30] MEDS: BISACODYL 5 MG TAB PO PRN (08:04)
[2016-10-30] MEDS: ASPIRIN 325 MG TAB PO SCH (08:05)
[2016-10-30] MEDS: SENOKOT S TAB PO SCH ×2 (08:05→22:05)
[2016-10-30] MEDS: MULTIVITAMINS/MINERALS THERAP 1 TAB PO SCH (08:05)
[2016-10-30] MEDS: VITAMIN D 1,000 INTERNATIONAL UNITS TABLET PO SCH (08:06)
[2016-10-30] MEDS: LACOSAMIDE 50 MG TAB (VIMPAT) PO SCH ×2 (08:06→22:05)
[2016-10-30] MEDS: HEPARIN SOD (PORCINE) 5000 UNITS/ML VIAL SQ SCH ×2 (08:06→21:51)
--- NOTE | 2016-10-30 10:30 | REP ---
Clinical: Hyperthermia with disconjugate gaze and altered mental status. Technique: Standard axial T1 and T2-weighted sequences along with sagittal T1 and diffusion/ADC mapping sequences. Findings: Chronic changes including encephalomalacia of the left frontal lobe consistent with prior trauma. However a small hyperintense focus in the right brainstem on diffusion sequence (image 27) is consistent with an acute infarction of the medulla. No further acute intracranial mass, mass effect, hemorrhage appreciated. No extra-axial collection. Impression: Small acute infarction along the right brainstem involving the medulla. Changes related to old trauma. Signed by Ronny Driver MD 10/30/2016 10:21 A
--- NOTE | 2016-10-30 11:35 | IPNPDOC ---
Subjective Date Seen The patient was seen on 10/30/16. Subjective Chief Complaint/HPI The patient is a 46-year-old male admitted with a reason for visit of Altered Mental State. Events since last encounter He is once again awake and alert, and in good mood. When asked how he is doing he gives me the thumbs up. His father and his brother are both present in the room, and they agree that he has been improving day by day. He does continue to have gurgling noises in the back of his throat, but they have been following the instructions provided to them by the speech therapist, and he seems to be having less issues with chewing and swallowing. Otherwise and nobody had any additional complaints, questions, or issues. General: Reports: ROS Unobtainable Objective Physical Examination General Exam: Positive: Alert, Cooperative, No Acute Distress Eye Exam: Positive: Conjunctiva & lids normal, Other Eye Symptoms (horizontal nystagmus to left eye; horizontal nystagmus with exotropia of the right eye) ENT Exam: Negative: Pharyngeal Edema Chest Exam: Positive: Clear to auscultation, Normal air movement, Other (he continues to make noises throughout the exam, which makes auscultation more difficult) Heart Exam: Positive: Normal S1, Normal S2, Rate Normal, Regular Rhythm, Negative: Gallops, Murmurs, Rubs Telemetry: Positive: No significant arrhythmia, Sinus Abdomen Exam: Positive: Normal bowel sounds, Soft, Negative: Hepatospenomegaly, Mass, Tenderness Extremity Exam: Positive: Normal pulses, Negative: Clubbing, Cyanosis, Edema, Swelling, Tenderness Skin Exam: Positive: Nl turgor and temperature, Negative: Lesion, Rash Psych Exam: Positive: Mood NL, Negative: Mental status NL Assessment /Plan Problems (1) Aspiration pneumonia Status: Acute Problem Text: Continue with recommendations from speech therapy regarding eating and swallowing :upright positioning for oral intake, slow pace feeding, alternating mechanical soft with thin liquids. The family is aware and is compliant. Empiric coverage with vancomycin and meropenem was initiated during the night on 10/28/2016. One of 2 blood cultures has a preliminary positive for gram- positive cocci in clusters, given that he has been afebrile, her laboratory values are within normal limits, and clinically he appears to be better, I suspect that this is a skin jessica contaminant. We will recheck one additional bottle today to verify.. Also, given the fact that his family has expressed a desire to make him DNR/DNI , and with his evolving situation which appears as though he is unable to appropriately protect his airway, and he has a stroke of undetermined etiology, we will work with PFS and to start the necessary paperwork in order to enable us to legally make him a DNR/DNI. At present he continues to be a full code until such paperwork has been completed. (2) Brainstem stroke Status: Acute Problem Text: He has been cleared by physical therapy to be able to go home to his prior level of services. Given that he has had a stroke of unknown etiology , and he has had what appears to be an aspiration event, clinically he still has more difficulty with chewing and swallowing now than he did prior to his stroke, he does remain an aspiration risk. Continue daily aspirin and statin. Vasculitis and hypercoagulability workup are still pending. (3) Constipation Status: Acute Problem Text: Continue to monitor. May use suppository as needed. (4) Hypomagnesemia Status: Resolved (5) Bradycardia Status: Resolved (6) Hypothermia Status: Resolved (7) Hypotension Status: Resolved (8) Hypokalemia Status: Resolved (9) Leukocytosis Status: Resolved (10) Altered mental state Status: Resolved Problem Text: Neurology has seen the patient in consult, their recommendations are much appreciated. MRA with and without contrast is unremarkable. Seizure precautions Vimpat level within normal limits Plan/VTE VTE Prophylaxis Ordered?: Yes (TEDs and sequentials) Plan/Urinary Catheter Reason for insertion/continuin: Critical Pt monitoring VS, I&O, [facility] Vital Signs/I&O Vital Signs Date Time Temp Pulse Resp B/P Pulse Ox O2 Delivery O2 Flow Rate FiO2 10/30/16 08:00 Nasal Cannula 2.0 10/30/16 07:29 99.4 99 22 115/70 98 10/28/16 06:00 40 I&O- Last 24 Hours up to 6 AM 10/30/16 06:00 Intake Total 360 ml Balance 360 ml Laboratory Data 24H LABS Laboratory Tests 2 10/30/16 05:30: Anion Gap 8, Blood Urea Nitrogen 11, Creatinine 0.61L, Sodium Level 141, Potassium Level 3.5, Chloride Level 105, Carbon Dioxide Level 28, Calcium Level 8.8, Glomerular Filtration Rate > 60.0, Magnesium Level 1.7L CBC/BMP Laboratory Tests 10/30/16 05:30 Calcium Level 8.8, Red Blood Count 4.49, Mean Corpuscular Volume 93.9, Mean Corpuscular Hemoglobin 31.7, Mean Corpuscular Hemoglobin Concent 33.7, Red Cell Distribution Width 13.6 Microbiology Microbiology 10/30/16 Blood Culture, Received Pending 10/28/16 Blood Culture - Preliminary, Resulted 10/28/16 Blood Culture - Preliminary, Resulted No Growth after 48 hours. All Specime... 10/24/16 Blood Culture - Final, Complete NO GROWTH AFTER 5 DAYS 10/24/16 Blood Culture - Final, Complete NO GROWTH AFTER 5 DAYS 10/26/16 Respiratory Virus Panel (PCR) (SHAKIR) - Final, Complete 10/24/16 Influenza Virus Type A Antigen - Final, Complete 10/24/16 Influenza Virus Type B Antigen - Final, Complete 10/24/16 Urine Culture - Final, Complete ROLF MONTGOMERY DO Oct 30, 2016 11:35
[2016-10-30 12:00] VITALS: BP 113/68
[2016-10-30] MEDS: BISACODYL 10 MG SUPP PR PRN (12:42)
[2016-10-30 16:00] VITALS: BP 118/62
[2016-10-30 19:53] VITALS: BP 139/94
[2016-10-30] MEDS: ATORVASTATIN 20 MG TAB PO SCH (22:05)
[2016-10-31] VITALS (7 sets, daily range): BP systolic 104–138; BP diastolic 58–84
[2016-10-31] MEDS: VANCOMYCIN HCL 1,000 MG, VIAL MATE ADAPTER 1 EACH in D5W 250 ML IV SCH ×3 (00:36→16:07)
[2016-10-31] MEDS: ACETAMINOPHEN TAB 650MG DOSE (2X325MG) PO PRN ×2 (04:59→21:13)
[2016-10-31] MEDS: MEROPENEM INJ 1 GM in D5W MINI-BAG PLUS 100 ML IV SCH ×3 (05:00→21:12)
[2016-10-31] MEDS: SLF 3 ML SYR IV SCH ×3 (05:00→21:12)
[2016-10-31] MEDS: VITAMIN D 1,000 INTERNATIONAL UNITS TABLET PO SCH (07:58)
[2016-10-31] MEDS: LACOSAMIDE 50 MG TAB (VIMPAT) PO SCH ×2 (07:58→21:12)
[2016-10-31] MEDS: SENOKOT S TAB PO SCH ×2 (07:58→21:12)
[2016-10-31] MEDS: MULTIVITAMINS/MINERALS THERAP 1 TAB PO SCH (07:58)
[2016-10-31] MEDS: ASPIRIN 325 MG TAB PO SCH (07:58)
[2016-10-31] MEDS: HEPARIN SOD (PORCINE) 5000 UNITS/ML VIAL SQ SCH ×2 (07:59→21:13)
[2016-10-31] MEDS: PROMETHAZINE 25 MG TAB PO PRN ×2 (08:06→21:12)
[2016-10-31] MEDS ORDERED: POTASSIUM CHLORIDE 10 MEQ SR TABLET PO ONE (09:00)
[2016-10-31] MEDS: BISACODYL 10 MG SUPP PR PRN (10:31)
[2016-10-31] MEDS: MAG SULF 1GM/100ML (MAG RUN) 1 GM in APPROPRIATE DILUENT 1 EA IV SCH ×3 (11:02→13:57)
--- NOTE | 2016-10-31 14:41 | IPNPDOC ---
Subjective Date Seen The patient was seen on 10/31/16. Subjective Chief Complaint/HPI The patient is a 46-year-old male admitted with a reason for visit of Altered Mental State. Events since last encounter He is once again in a good mood this morning. When asked how he is feeling once again gives me a thumbs up. The family did have some concerns about having him transferred off the PCU on to [facility], however, after a conversation with them explaining that he was still going to be in the hospital under good care, just not on telemetry, their fears were assuaged. Otherwise, they're only concerns of a brought up today was that he has not had a good bowel movement since being here other than 1 small bowel movement after the administration of the suppository 2 days ago. Otherwise, review of systems is unobtainable from the patient. Objective Physical Examination General Exam: Positive: Alert, Cooperative, No Acute Distress Eye Exam: Positive: Conjunctiva & lids normal, Other Eye Symptoms (horizontal nystagmus to left eye; horizontal nystagmus with exotropia of the right eye) ENT Exam: Negative: Pharyngeal Edema Chest Exam: Positive: Clear to auscultation, Normal air movement, Negative: Rales, Rhonchi, Wheezing Heart Exam: Positive: Normal S1, Normal S2, Rate Normal, Regular Rhythm, Negative: Gallops, Murmurs, Rubs Telemetry: Positive: No significant arrhythmia, Sinus Abdomen Exam: Positive: Normal bowel sounds, Soft, Negative: Hepatospenomegaly, Mass, Tenderness Extremity Exam: Positive: Normal pulses, Negative: Clubbing, Cyanosis, Edema, Swelling, Tenderness Skin Exam: Positive: Nl turgor and temperature, Negative: Lesion, Rash Assessment /Plan Problems (1) Aspiration pneumonia Status: Acute Problem Text: Empiric coverage with vancomycin and meropenem was initiated 11/2016. 1 of 2 blood cultures has a preliminary positive for gram-positive cocci in clusters, however repeat cultures were negative. Continue with recommendations from speech therapy regarding eating and swallowing :upright positioning for oral intake, slow pace feeding, alternating mechanical soft with thin liquids. The family is aware and is compliant. Also, given the fact that his family has expressed a desire to make him DNR/DNI , and with his evolving situation which appears as though he is unable to appropriately protect his airway, and he has a stroke of undetermined etiology, we will work with PFS and to start the necessary paperwork in order to enable us to legally make him a DNR/DNI. At present he continues to be a full code until such paperwork has been completed. (2) Brainstem stroke Status: Acute Problem Text: He has been cleared by physical therapy to be able to go home to his prior level of services. Given that he has had a stroke of unknown etiology , and he has had what appears to be an aspiration event, clinically he still has more difficulty with chewing and swallowing now than he did prior to his stroke, he does remain an aspiration risk. Continue daily aspirin and statin. Vasculitis and hypercoagulability workup are still pending. (3) Constipation Status: Acute Problem Text: Will order suppository for this morning, and if this does not work we will administer a tap water enema in the afternoon. (4) Hypomagnesemia Status: Resolved (5) Bradycardia Status: Resolved (6) Hypothermia Status: Resolved (7) Hypotension Status: Resolved (8) Hypokalemia Status: Resolved (9) Leukocytosis Status: Resolved (10) Altered mental state Status: Resolved Problem Text: Neurology has seen the patient in consult, their recommendations are much appreciated. MRA with and without contrast is unremarkable. Seizure precautions Vimpat level within normal limits Plan/VTE VTE Prophylaxis Ordered?: Yes (TEDs and sequentials) Plan/Urinary Catheter Reason for insertion/continuin: Critical Pt monitoring VS, I&O, 24H, Fishbone Vital Signs/I&O Vital Signs Date Time Temp Pulse Resp B/P Pulse Ox O2 Delivery O2 Flow Rate FiO2 10/31/16 08:00 Room Air 10/31/16 08:00 98.1 97 18 104/68 91 10/30/16 08:00 2.0 10/28/16 06:00 40 I&O- Last 24 Hours up to 6 AM 10/31/16 06:00 Intake Total 660 ml Output Total 0 ml Balance 660 ml Laboratory Data 24H LABS Laboratory Tests 2 10/31/16 04:31: Anion Gap 7L, Blood Urea Nitrogen 7, Creatinine 0.49L, Sodium Level 142, Potassium Level 3.1L, Chloride Level 104, Carbon Dioxide Level 31, Calcium Level 8.3L, Glomerular Filtration Rate > 60.0, Magnesium Level 1.7L CBC/BMP Laboratory Tests 10/31/16 04:31 Calcium Level 8.3 L, Red Blood Count 3.98 L, Mean Corpuscular Volume 93.8, Mean Corpuscular Hemoglobin 31.3, Mean Corpuscular Hemoglobin Concent 33.4, Red Cell Distribution Width 13.6 Microbiology Microbiology 10/30/16 Blood Culture - Preliminary, Resulted No growth after 24 hours . All specim... 10/28/16 Blood Culture - Preliminary, Resulted 10/28/16 Blood Culture - Preliminary, Resulted No Growth after 72 hours. All specime... 10/24/16 Blood Culture - Final, Complete NO GROWTH AFTER 5 DAYS 10/24/16 Blood Culture - Final, Complete NO GROWTH AFTER 5 DAYS 10/26/16 Respiratory Virus Panel (PCR) (SHAKIR) - Final, Complete 10/24/16 Influenza Virus Type A Antigen - Final, Complete 10/24/16 Influenza Virus Type B Antigen - Final, Complete 10/24/16 Urine Culture - Final, Complete ROLF MONTGOMERY DO Oct 31, 2016 14:41
[2016-10-31] MEDS: ATORVASTATIN 20 MG TAB PO SCH (21:12)
[2016-10-31] MEDS: NYSTATIN 100,000 UNITS/GM TOPICAL PWD 15 GM TOP SCH (21:23)
[2016-11-01] MEDS: SLF 3 ML SYR IV SCH ×3 (00:31→20:18)
[2016-11-01] MEDS: VANCOMYCIN HCL 1,000 MG, VIAL MATE ADAPTER 1 EACH in D5W 250 ML IV SCH (00:31)
[2016-11-01 02:00] VITALS: BP 128/68
[2016-11-01] MEDS: MEROPENEM INJ 1 GM in D5W MINI-BAG PLUS 100 ML IV SCH (05:10)
[2016-11-01 06:00] VITALS: BP 119/57
[2016-11-01] MEDS: BISACODYL 5 MG TAB PO PRN (09:40)
[2016-11-01] MEDS: VITAMIN D 1,000 INTERNATIONAL UNITS TABLET PO SCH (09:40)
[2016-11-01] MEDS: HEPARIN SOD (PORCINE) 5000 UNITS/ML VIAL SQ SCH ×2 (09:40→20:17)
[2016-11-01] MEDS: SENOKOT S TAB PO SCH ×2 (09:40→20:17)
[2016-11-01] MEDS: NYSTATIN 100,000 UNITS/GM TOPICAL PWD 15 GM TOP SCH ×2 (09:41→20:17)
[2016-11-01] MEDS: MULTIVITAMINS/MINERALS THERAP 1 TAB PO SCH (09:41)
[2016-11-01] MEDS: ASPIRIN 325 MG TAB PO SCH (09:41)
[2016-11-01] MEDS: LACOSAMIDE 50 MG TAB (VIMPAT) PO SCH ×2 (09:41→20:17)
[2016-11-01 10:00] VITALS: BP 126/68
[2016-11-01] MEDS ORDERED: VANCOMYCIN HCL 1,000 MG, VIAL MATE ADAPTER 1 EACH in D5W 250 ML IV SCH (11:00)
[2016-11-01] MEDS: MOXIFLOXACIN 400 MG TAB PO SCH (11:49)
--- NOTE | 2016-11-01 11:53 | IPN ---
DATE OF SERVICE: 11/01/2016 SUBJECTIVE: The patient when I entered the room waved to me and says hello. He says good morning. He does not answer other questions specifically but he dose follow commands. OBJECTIVE: Vital signs: Temperature 98.7, pulse 78, respiratory rate 18, blood pressure 128/68, oxygen saturation 92% on room air. General: He is middle aged, man sitting up in bed. He does not appear to be significantly different from previous days exams. HEENT: Still has right side gazed deviation. Moist mucous membranes and elevation of CVP. He does mumble his words. Cardiovascular exam: S1, S2. He is not tachycardic on my exam. Respiratory exam: Fairly clear. Abdominal exam: Benign. Extremities: No clubbing, cyanosis or edema. Chronic deformity of the left lower extremity. LABORATORY STUDIES: WBC 9.2, hemoglobin 12.4, hematocrit 37.3, platelet count 234. This is from 10/31. Chemistry panel is currently pending. Admitting level within normal limits. Hypercoagulable workup is currently pending. Microbiology: One blood culture positive from 10/28 for staphylococcus epidermitis likely contaminant. Otherwise all microbiology is negative. No new imaging. ASSESSMENT AND PLAN: This is a 46-year-old man with history of traumatic brain injury (TBI) who presented with a brain stem stroke. PROBLEMS: 1. Brain stem stroke. Neurology's help appreciated. Patient was previously cleared by physical therapy. Dr. Escalante's help has been appreciated. The patient is on Vimpat 20 mg twice daily aspirin and statin. Hypercoagulable workup is pending. No clear etiology for his cerebrovascular accident (CVA) has been determined at this time. We will monitor and optimize his secondary risk factors, it is possible it may be related to his underlying TBI. 2. Aspiration pneumonia as a complication to his CVA. He has been seen by speech prior to the aspiration event and following as well. Their dietary recommendations have been followed. Given his new CVA and his poor baseline status, he is certainly at risk for recurrent aspirations. The patient's brother, his guardian, has expressed his wish for the patient to be a DO NOT RESUSCITATE/DO NOT INTUBATE, however at this time, the patient is not terminally ill, but if he were to have recurrent aspiration events, he would need to be evaluated for a percutaneous endoscopic gastrostomy tube. This is not the case at this time. He is currently being treated for aspiration pneumonia. At this time, we will narrow antibiotic spectrum as cultures have been negative. He is now afebrile, no longer hypoxic. 3. Constipation, chronic. Continue with bowel regimen. 4. Hypomagnesemia, resolved. 5. Hypokalemia. Follow laboratory studies and replete as necessary. 6. Deep venous thrombosis (DVT) prophylaxis. Patient on heparin. Decision pending re-evaluation by physical therapy, patient could likely be discharged home as early as tomorrow. This has been discussed with his brother and his caregiver.
[2016-11-01 14:00] VITALS: BP 106/64
[2016-11-01 18:00] VITALS: BP 119/75
[2016-11-01] MEDS: BISACODYL 10 MG SUPP PR PRN (18:00)
[2016-11-01] MEDS: ACETAMINOPHEN TAB 650MG DOSE (2X325MG) PO PRN (18:00)
[2016-11-01] MEDS: PROMETHAZINE 25 MG TAB PO PRN (20:17)
[2016-11-01] MEDS: ATORVASTATIN 20 MG TAB PO SCH (20:17)
[2016-11-01 22:00] VITALS: BP 129/69
[2016-11-02 02:00] VITALS: BP 110/64
[2016-11-02 06:00] VITALS: BP 113/62
[2016-11-02] MEDS: MOXIFLOXACIN 400 MG TAB PO SCH (06:19)
[2016-11-02] MEDS: SLF 3 ML SYR IV SCH ×2 (06:19→14:00)
[2016-11-02] MEDS: SENOKOT S TAB PO SCH (09:50)
[2016-11-02] MEDS: ASPIRIN 325 MG TAB PO SCH (09:50)
[2016-11-02] MEDS: VITAMIN D 1,000 INTERNATIONAL UNITS TABLET PO SCH (09:50)
[2016-11-02] MEDS: LACOSAMIDE 50 MG TAB (VIMPAT) PO SCH (09:50)
[2016-11-02] MEDS: MULTIVITAMINS/MINERALS THERAP 1 TAB PO SCH (09:50)
[2016-11-02] MEDS: HEPARIN SOD (PORCINE) 5000 UNITS/ML VIAL SQ SCH (09:51)
[2016-11-02] MEDS: NYSTATIN 100,000 UNITS/GM TOPICAL PWD 15 GM TOP SCH (09:52)
[2016-11-02] MEDS ORDERED: AVEL1TAB PO (12:24)
[2016-11-02] MEDS ORDERED: ASPI325T PO (12:24)
[2016-11-02] MEDS ORDERED: ATOR1TAB21 PO (12:24)
[2016-11-02 14:00] VITALS: BP 104/58
[2016-11-02] MEDS ORDERED: PROM25TA PO (14:46)
--- NOTE | 2016-11-02 19:13 | DS.PDOC ---
Discharge Summary General Date of Admission Oct 24, 2016 at 13:11 Date of Discharge 11/02/2016 Discharge Summary PRIMARY CARE PHYSICIAN: Huy Callahan [facility] Neurologist: Dr. Ava CAIN ATTENDING AT TIME OF DISCHARGE: Dr. Edwin Michaels DISCHARGE DIAGNOS(E)S: 1. Brainstem stroke 2. Aspiration pneumonia as a complication new CVA 3. Chronic constipation 4. Electrolyte abnormalities including hypomagnesemia and hypokalemia 5. History of traumatic brain injury as a child HPI & HOSPITAL COURSE: Mr. Bush was brought to the emergency department by his family who are also has caregivers who stated they mentioned that he had been favoring his right side more than usual, and he had been slumping over the right side, and he was having more difficulty with swallowing liquids, and he had been less responsive than his usual self. Initial CT of the head was negative, however repeat MRI did show a small acute infarction along the right brainstem involving the medulla. He was seen and evaluated by his neurologist Dr. Escalante who recommended the initiation of aspirin and statin. Additional workup for the etiology of his stroke included carotid artery MRI, echocardiogram, screening for lipids and diabetes, screening there for thyroid disease, LFTs, however none of which revealed any indication for an etiology of his stroke. Hypercoagulability and vasculitis workup is still pending. While inpatient he did have what was suspected to be an aspiration event, he developed a leukocytosis and infiltrate on chest x-ray. He was empirically treated with meropenem and vancomycin for 4 days, and then narrowed to moxifloxacin because after the first day he had shown rapid improvement both in his lab values and clinically. He did have both a bedside evaluation by speech therapy, and then after his aspiration event he had a barium swallow test, neither of them indicated aspiration, but he did have laryngeal penetration. It was their recommendation to continue with mechanical soft diet alternating liquids and solids, maintaining an upright position throughout eating. He was seen and evaluated by physical therapy who felt that he was safe to go back home to his prior level of care. On today the day of discharge she does have a leukocytosis, and through the night he did have a very low-grade fever, but clinically he appears just as well today as he has over the entire weekend. He is already being treated for aspiration pneumonia at this time, and it does not appear that he has had any additional aspiration events. The family is aware, and it was recommended that they keep a close watch on him, and only feed him when he is fully awake and alert and following further recommendations as listed above. They're very understanding, and feel comfortable with caring with him at home. Speaking with the patient today, once again gives the thumbs up indicating that he is feeling well. He is very interactive and alert, which is comforting that both myself and his caregivers. It was recommended that the family obtain a suctioning unit with the [employer] and suctioning toothbrush, the prescription was written for this, however, regrettably PFS has stated that their insurance company will not pay for this, therefore the family may consider purchasing this on their own. Given the fact that he has had a stroke of unknown etiology, complicated by an aspiration pneumonia, and his swallow has not returned completely back to normal , he is at high risk for additional aspiration in the future, and there is also a chance that he may also have another stroke in the future. He does, however, appear to be stable for discharge at this time. Prognosis, however, is not very optimistic. He may benefit from placement of the PEG tube in the future if he continues to have further problems. PHYSICAL EXAMINATION ON DISCHARGE: GENERAL: Sitting upright in bed. He is awake, cheery, and gives the thumbs up indicating that he is feeling well CARDIOVASCULAR EXAMINATION: Regular rate and rhythm, with no rubs, gallops, or murmur. RESPIRATORY EXAMINATION: Clear to auscultation bilaterally with no wheezes, rales, or rhonchi. ABDOMINAL EXAMINATION: Soft, nontender, nondistended. Bowel sounds present. EXTREMITIES: No clubbing or edema noted. 2+ pulses in the radial bilaterally. 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 DISPOSITION: Home DISCHARGE INSTRUCTIONS: Follow-up with PCP Huy Callahan and with neurologist Dr. Escalante within 7-10 days. Soft mechanical diet as described above. Recommend slow return to normal activity. If symptoms return, or if you experience worsening of your symptoms , please call your doctor or return to the emergency department. ITEMS THAT NEED OUTPATIENT FOLLOWUP: Follow-up vasculitis and hypercoagulability workup, as these labs are still pending. My preceptor for this patient encounter was physically present in the building during the encounter and was fully available. As needed, all aspects of the patient interview, examination, medical decision making process, and medical care plan development were reviewed and approved by the preceptor. Preceptor is aware and concurs with the plan as stated in the body of this note and will attest to such by his/her cosignature. Vital Signs/I&Os Vital Signs Date Time Temp Pulse Resp B/P Pulse Ox O2 Delivery O2 Flow Rate FiO2 11/02/16 14:00 99.0 103 20 104/58 90 Room Air 10/30/16 08:00 2.0 10/28/16 06:00 40 I&O- Last 24 Hours up to 6 AM 11/02/16 06:00 Intake Total 1180 ml Output Total 0 ml Balance 1180 ml Laboratory Data Labs 24H Laboratory Tests 2 11/02/16 05:55: Anion Gap 7L, Blood Urea Nitrogen 10#, Creatinine 0.88, Sodium Level 145, Potassium Level 3.9, Chloride Level 107, Carbon Dioxide Level 31, Calcium Level 8.5, Glomerular Filtration Rate > 60.0 CBC/BMP Laboratory Tests 11/02/16 05:55 Calcium Level 8.5, Red Blood Count 3.88 L, Mean Corpuscular Volume 94.9, Mean Corpuscular Hemoglobin 31.2, Mean Corpuscular Hemoglobin Concent 32.9, Red Cell Distribution Width 13.9 Microbiology Microbiology 10/30/16 Blood Culture - Preliminary, Resulted No Growth after 72 hours. All specime... 10/28/16 Blood Culture - Final, Complete Staphylococcus Epidermidis 10/28/16 Blood Culture - Final, Complete NO GROWTH AFTER 5 DAYS 10/24/16 Blood Culture - Final, Complete NO GROWTH AFTER 5 DAYS 10/24/16 Blood Culture - Final, Complete NO GROWTH AFTER 5 DAYS 10/26/16 Respiratory Virus Panel (PCR) (SHAKIR) - Final, Complete 10/24/16 Influenza Virus Type A Antigen - Final, Complete 10/24/16 Influenza Virus Type B Antigen - Final, Complete 10/24/16 Urine Culture - Final, Complete Discharge Medications Scheduled Aspirin (Aspirin) 325 Mg Tab 325 MG PO DAILY Atorvastatin Calcium (Atorvastatin Calcium) 20 Mg Tab 20 MG PO QHS Lacosamide (Vimpat) 200 Mg Tab 200 MG PO BID (Reported) Moxifloxacin Hydrochloride (Avelox) 400 Mg Tab 400 MG PO DAILY@06 Multivitamins *[facility] STOCKED* (Thera M Plus *[facility] STOCKED*) 1 Tab Tab 1 TAB PO DAILY (Reported) Vitamin D (Vitamin D) 1,000 Unit Cap 1,000 UNIT PO DAILY (Reported) Scheduled PRN (Phytoplex Z-Guard Skin Pr 57-17 %) 1 Pst Pst 1 PST TOP BID PRN PRN RASH ( Reported) APPLY TO SHINS Bisacodyl (Dulcolax) 5 Mg Tab 10 MG PO DAILY PRN PRN CONSTIPATION (Reported) Docusate Sodium (Colace) 100 Mg Cap 100 MG PO BID PRN PRN CONSTIPATION (Reported ) Promethazine HCl (Promethazine HCl) 25 Mg Tab 25 MG PO Q6HP PRN PRN nausea Allergies Coded Allergies: Phenytoin (Verified Allergy, Severe, RASH, 10/25/12) Penicillins (Verified Allergy, Mild, HIVES, 10/25/12) [place] Oil (Verified Adverse Reaction, Intermediate, DIARRHEA, 10/04/16) has explosive diarrhea when pt eats an entire can of corn, has had other corn products throughout his life without issue. ROLF MONTGOMERY DO Nov 02, 2016 19:13
== END 2016-11-02 15:13 | disposition home or self-care (01) | DRG 64 ==
LOC: M ED 10:24 → M ED INP 13:11 → M PCU 14:05 → M MSPAV 10-27 22:22 → M PCU 10-28 06:03 → M MSPAV 10-31 11:39
PROVIDERS: ADMIT Hospitalist; ATTEND Internal Medicine
DX: I63.9 Cerebral infarction, unspecified (principal); G82.50 Quadriplegia, unspecified; J69.0 Pneumonitis due to inhalation of food and vomit; G93.40 Encephalopathy, unspecified; R68.0 Hypothermia, not associated with low environmental temperature; Z87.820 Personal history of traumatic brain injury; K59.00 Constipation, unspecified; E87.6 Hypokalemia; Z66 Do not resuscitate; E83.42 Hypomagnesemia; Z79.899 Other long term (current) drug therapy; Z88.8 Allergy status to other drugs, medicaments and biological substances; Z79.82 Long term (current) use of aspirin; I95.9 Hypotension, unspecified; D72.829 Elevated white blood cell count, unspecified

== ENCOUNTER 2016-11-02 18:31 | Emergency (ER) | payer MEDICARE, MEDICAID ==
[~2016-11-02] VITALS: Ht 170.2 cm; Wt 59.0 kg
[~2016-11-02 18:31] MED LIST changes: +ASPI325T PO; +ATOR1TAB21 PO; +AVEL1TAB PO; +PROM25TA PO
[2016-11-02] MEDS ORDERED: LIDOCAINE W/EPINEPHRINE 1% 20ML VIAL SC ONE (20:45)
[2016-11-02 21:02] VITALS: BP 125/83
== END 2016-11-02 21:19 | disposition home or self-care (01) ==
LOC: M ED 19:47
DX: S01.112A Laceration without foreign body of left eyelid and periocular area, initial encounter (principal); W07.XXXA Fall from chair, initial encounter; Y92.018 Other place in single-family (private) house as the place of occurrence of the external cause; Y93.89 Activity, other specified; Y99.8 Other external cause status; Z87.820 Personal history of traumatic brain injury

== ENCOUNTER 2016-11-10 12:10 | Emergency (ER) | payer MEDICARE, MEDICAID ==
[~2016-11-10] VITALS: Ht 170.2 cm; Wt 54.4 kg
--- NOTE | 2016-11-10 14:05 | REP ---
AP and latera semiupright chest: Comparisons are the portable chest dated 10/28/2016, portable chest dated 10/27 2016 and portable chest dated 10/24/[address] of 10/24/2016. There was a large infiltrate inferiorly in the right lung on 10/28/2016, not present on the other prior studies including the chest CT. On the study today that the right lung infiltrate has resolved. There are no new infiltrates. No pleural effusions. Lung osorio are clear. Cardiac size normal. The deshawn, mediastinum, and bony thorax are unremarkable. Impression: Negative semi upright AP and lateral views of the chest. The right lung infiltrate identified 10/28/2016 has resolved. Signed by Beau Soria MD 11/10/2016 01:57 P
[2016-11-10 14:07] VITALS: BP 107/68
== END 2016-11-10 14:12 | disposition home or self-care (01) ==
LOC: M ED 14:03
DX: R63.0 Anorexia (principal); Z87.09 Personal history of other diseases of the respiratory system; R56.9 Unspecified convulsions; Z86.73 Personal history of transient ischemic attack (TIA), and cerebral infarction without residual deficits; Z87.820 Personal history of traumatic brain injury; Z79.899 Other long term (current) drug therapy; Z79.82 Long term (current) use of aspirin; Z88.0 Allergy status to penicillin; Z88.1 Allergy status to other antibiotic agents; Z88.8 Allergy status to other drugs, medicaments and biological substances; Z91.018 Allergy to other foods

== ENCOUNTER 2016-11-19 09:16 | Inpatient (IN) | payer MEDICARE, MEDICAID ==
[~2016-11-19] VITALS: Ht 170.2 cm; Wt 68.9 kg
[2016-11-19] MEDS: MULTIVITAMINS/MINERALS THERAP 1 TAB PO SCH (09:00)
[2016-11-19 10:22] LABS: BASO % 0.3 % (0.0-1.0); EOS # 0.6 K/mm3 (0.0-0.50); EOS % 6.2 % (0.0-3.0); LARGE UNSTAINED CELL # 0.2 K/mm3 (0.0-0.4); LARGE UNSTAINED CELL % 1.9 % (0.0-4.0); LYMPH # 1.7 K/mm3 (1.5-4.5); LYMPH % 17.9 % (24.0-44.0); MEAN CORPUSCULAR HEMOGLOBIN 32.6 pg (27.0-33.0); MONO # 0.6 K/mm3 (0.0-0.8); MONO % 6.5 % (0.0-5.0); NEUTROPHILS # 6.4 K/mm3 (1.8-7.7); NEUTROPHILS % 67.3 % (36.0-66.0); PLATELET COUNT, AUTOMATED 413 k/mm3 (150-450); RED CELL DISTRIBUTION WIDTH 14.7 % (11.5-14.5); WHITE BLOOD COUNT 9.5 K/mm3 (4.0-10.0)
[2016-11-19 10:35] LABS: ALBUMIN 3.1 GM/DL (3.2-5.2); ALBUMIN/GLOBULIN RATIO 0.66 (1.00-1.93); ALKALINE PHOSPHATASE 93 U/L (45-117); ALT/SGPT 24 U/L (12-78); ANION GAP 9 MEQ/L (8-16); AST/SGOT 16 U/L (15-37); BILIRUBIN,DIRECT < 0.1 MG/DL (0.0-0.2); BILIRUBIN,TOTAL 0.2 MG/DL (0.2-1.0); BLOOD UREA NITROGEN 19 MG/DL (7-18); CALCIUM LEVEL 8.7 MG/DL (8.5-10.1); CARBON DIOXIDE LEVEL 29 MEQ/L (21-32); CHLORIDE LEVEL 104 MEQ/L (98-107); CREATININE FOR GFR 0.85 MG/DL (0.70-1.30); GLOMERULAR FILTRATION RATE > 60.0 (>60); GLUCOSE, FASTING 83 MG/DL (70-105); POTASSIUM SERUM 3.8 MEQ/L (3.5-5.1); SODIUM LEVEL 142 MEQ/L (136-145); TOTAL PROTEIN 7.8 GM/DL (6.4-8.2)
[2016-11-19 10:43] LABS: ABG BASE EXCESS 5.3 (-2.0-2.0); ABG HCO3 31.4 MEQ/L (22.0-26.0); ABG PARTIAL PRESSURE CO2 51.3 mmHg (35.0-45.0); ABG PARTIAL PRESSURE O2 82.6 mmHg (75.0-100.0); ABG STANDARD HCO3 29.2 MEQ/L (22.0-26.0); ABG TOTAL CO2 32.9 MEQ/L (22.0-29.0); ABG pH (ARTERIAL) 7.404 UNITS (7.350-7.450)
--- NOTE | 2016-11-19 10:46 | REP ---
Chest one-view HISTORY: Altered mental status Comparison: 11/10/2016 The lungs are clear. The heart is normal in size. The pulmonary vasculature is normal in appearance. Impression: No acute disease. Signed by John Hearn MD 11/19/2016 10:37 A
--- NOTE | 2016-11-19 12:36 | REP ---
CT HEAD WITHOUT CONTRAST: HISTORY: Altered mental status. COMPARISON: 10/24/2016. Areas of decreased attentuation are present in the frontal lobes. There is dilatation of the overlying cortical sulci. This represents encephalomalacia. There is no intraparenchymal hemorrhage, mass, or midline shift. The ventricular system and cortical sulci as well as subarachnoid space in the posterior fossa are dilated consistent with mild volume loss. There is no extracerebral collection. The visualized sinuses are clear. IMPRESSION: 1. Bilateral frontal lobe encephalomalacia. 2. Mild volume loss. Signed by John Hearn MD 11/19/2016 12:38 P
[2016-11-19] MEDS ORDERED: ATOR1TAB21 PO (17:08)
[2016-11-19] MEDS ORDERED: VITA100066 PO (17:08)
[2016-11-19] MEDS ORDERED: VITMTA PO (17:08)
[2016-11-19] MEDS ORDERED: VIMP200T PO (17:08)
[2016-11-19] MEDS ORDERED: ASPI325T PO (17:08)
[2016-11-19] MEDS ORDERED: BISAC5TA PO (17:08)
[2016-11-19] MEDS ORDERED: ACETAMINOPHEN 650 MG SUPP PR PRN (18:00)
[2016-11-19] MEDS ORDERED: BISACODYL 5 MG TAB PO PRN (18:15)
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
--- NOTE | 2016-11-19 20:49 | REP ---
CAROTID ULTRASOUND: Real-time ultrasound evaluation and duplex Doppler interrogation of the extracranial carotid vasculature is performed. There is mild plaquing and narrowing in both carotid bulbs extending into the internal and external carotid arteries. Luminal narrowing is less than 50%. There is no evidence of hemodynamically significant stenosis of either internal carotid artery. Normal flow velocities are seen. The vertebral arteries could not be seen bilaterally. RIGHT LEFT Peak systolic velocity ICA 55.6 cm/s 50 cm/s End diastolic velocity ICA 25.4 cm/s 22.5 cm/s Peak systolic velocity CCA 75.8 cm/s 89.8 cm/s Peak systolic velocity ECA not seen 53.1 cm/s ICA/CCA ratio 0.73 0.56 IMPRESSION: Bilateral luminal narrowing of the internal carotid arteries less than 50%. No evidence of hemodynamically significant stenosis. Signed by Beau Wells MD 11/19/2016 07:36 P
--- NOTE | 2016-11-19 22:41 | REP ---
MRI BRAIN WITHOUT CONTRAST: HISTORY: Altered mental status. COMPARISON: 10/24/2016 A small focus of increased signal intensity on diffusion weighted images is present in the right lateral medulla. This is isointense in signal intensity on ADC images and is consistent with a subacute infarction. Areas of increased signal intensity on T2-weighted images are present in the frontal lobes. There is dilatation of the _overlying___ cortical sulci. This represent gliosis and encephalomalacia. Areas of increased signal intensity on T2-weighted images are present in the periventricular and subcortical white matter. This represents small vessel ischemic disease. There is no intraparenchymal hemorrhage, acute infarct, mass or midline shift. The ventricular system and cortical sulci as well as subarachnoid space in the posterior fossa are dilated consistent with mild volume loss. There is no extracerebral collection. A retention cyst is present in the left maxillary sinus. IMPRESSION: 1. Small subacute right medulla infarction. 2. Bilateral frontal lobe encephalomalacia. 3. Small vessel ischemic disease. 4. Mild volume loss. Signed by John Hearn MD 11/20/2016 07:51 A
[2016-11-19] MEDS: NS 1,000 ML IV SCH (23:15)
[2016-11-19 23:59] VITALS: BP 125/88
[2016-11-20] MEDS: ATORVASTATIN 20 MG TAB PO SCH ×2 (00:42→20:36)
[2016-11-20] MEDS: VITAMIN D 1,000 INTERNATIONAL UNITS TABLET PO SCH ×3 (00:42→20:36)
[2016-11-20] MEDS: LACOSAMIDE 50 MG TAB (VIMPAT) PO SCH ×3 (00:43→20:36)
[2016-11-20 04:00] VITALS: BP 111/69
[2016-11-20 06:14] LABS: BASO % 0.4 % (0.0-1.0); EOS # 0.5 K/mm3 (0.0-0.50); EOS % 5.8 % (0.0-3.0); LARGE UNSTAINED CELL # 0.2 K/mm3 (0.0-0.4); LARGE UNSTAINED CELL % 2.6 % (0.0-4.0); LYMPH # 1.8 K/mm3 (1.5-4.5); MEAN CORPUSCULAR HEMOGLOBIN 32.4 pg (27.0-33.0); MEAN CORPUSCULAR HGB CONC 34.1 g/dl (32.0-36.5); MEAN CORPUSCULAR VOLUME 95.1 fl (80.0-96.0); MONO # 0.6 K/mm3 (0.0-0.8); MONO % 7.4 % (0.0-5.0); NEUTROPHILS # 5.3 K/mm3 (1.8-7.7); NEUTROPHILS % 62.8 % (36.0-66.0); PLATELET COUNT, AUTOMATED 340 k/mm3 (150-450); RED CELL DISTRIBUTION WIDTH 14.7 % (11.5-14.5); WHITE BLOOD COUNT 8.4 K/mm3 (4.0-10.0)
[2016-11-20 06:31] LABS: ALBUMIN 2.7 GM/DL (3.2-5.2); ALBUMIN/GLOBULIN RATIO 0.64 (1.00-1.93); ALKALINE PHOSPHATASE 80 U/L (45-117); ALT/SGPT 25 U/L (12-78); ANION GAP 5 MEQ/L (8-16); AST/SGOT 17 U/L (15-37); BILIRUBIN,TOTAL 0.4 MG/DL (0.2-1.0); BLOOD UREA NITROGEN 20 MG/DL (7-18); CALCIUM LEVEL 8.9 MG/DL (8.5-10.1); CARBON DIOXIDE LEVEL 31 MEQ/L (21-32); CHLORIDE LEVEL 106 MEQ/L (98-107); CREATININE FOR GFR 0.62 MG/DL (0.70-1.30); GLOMERULAR FILTRATION RATE > 60.0 (>60); GLUCOSE, FASTING 70 MG/DL (70-105); MAGNESIUM LEVEL 1.6 MG/DL (1.8-2.4); POTASSIUM SERUM 3.7 MEQ/L (3.5-5.1); SODIUM LEVEL 142 MEQ/L (136-145); TOTAL PROTEIN 6.9 GM/DL (6.4-8.2)
[2016-11-20 07:10] VITALS: BP 108/57
[2016-11-20] MEDS ORDERED: ASPIRIN 325 MG TAB PO SCH (09:00)
[2016-11-20] MEDS: MULTIVITAMINS/MINERALS THERAP 1 TAB PO SCH (10:03)
--- NOTE | 2016-11-20 10:49 | REP ---
MRA BRAIN WITHOUT CONTRAST: HISTORY: Infarction. 3D [id number] MR angiography was performed at the level of the e[place] of [place]. There is no aneurysm , arteriovenous malformation or atherosclerotic lesion. The major intracranial vessels are patent. The vertebral arteries are equal in size. IMPRESSION: Normal MRA brain. Signed by John Hearn MD 11/20/2016 10:56 A
[2016-11-20] MEDS: NS 1,000 ML IV SCH (11:48)
[2016-11-20 12:00] VITALS: BP 116/70
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
[2016-11-20 16:00] VITALS: BP 92/54
[2016-11-20 20:00] VITALS: BP 110/68
[2016-11-20 23:59] VITALS: BP 94/54
[2016-11-21] MEDS: NS 1,000 ML IV SCH (00:24)
[2016-11-21 04:45] VITALS: BP 105/73
[2016-11-21 05:28] LABS: BASO % 0.4 % (0.0-1.0); EOS # 0.4 K/mm3 (0.0-0.50); EOS % 6.7 % (0.0-3.0); LARGE UNSTAINED CELL # 0.2 K/mm3 (0.0-0.4); LARGE UNSTAINED CELL % 3.4 % (0.0-4.0); LYMPH # 1.8 K/mm3 (1.5-4.5); LYMPH % 31.1 % (24.0-44.0); MEAN CORPUSCULAR HEMOGLOBIN 32.5 pg (27.0-33.0); MEAN CORPUSCULAR HGB CONC 34.2 g/dl (32.0-36.5); MEAN CORPUSCULAR VOLUME 94.8 fl (80.0-96.0); MONO # 0.5 K/mm3 (0.0-0.8); MONO % 8.5 % (0.0-5.0); NEUTROPHILS % 49.8 % (36.0-66.0); PLATELET COUNT, AUTOMATED 297 k/mm3 (150-450); RED CELL DISTRIBUTION WIDTH 14.4 % (11.5-14.5); WHITE BLOOD COUNT 5.9 K/mm3 (4.0-10.0)
[2016-11-21 05:42] LABS: ALBUMIN 2.6 GM/DL (3.2-5.2); ALBUMIN/GLOBULIN RATIO 0.67 (1.00-1.93); ALKALINE PHOSPHATASE 75 U/L (45-117); ALT/SGPT 20 U/L (12-78); ANION GAP 6 MEQ/L (8-16); AST/SGOT 16 U/L (15-37); BILIRUBIN,TOTAL 0.4 MG/DL (0.2-1.0); BLOOD UREA NITROGEN 16 MG/DL (7-18); CALCIUM LEVEL 8.1 MG/DL (8.5-10.1); CARBON DIOXIDE LEVEL 28 MEQ/L (21-32); CHLORIDE LEVEL 107 MEQ/L (98-107); CREATININE FOR GFR 0.62 MG/DL (0.70-1.30); GLOMERULAR FILTRATION RATE > 60.0 (>60); GLUCOSE, FASTING 73 MG/DL (70-105); MAGNESIUM LEVEL 1.6 MG/DL (1.8-2.4); POTASSIUM SERUM 3.8 MEQ/L (3.5-5.1); SODIUM LEVEL 141 MEQ/L (136-145); TOTAL PROTEIN 6.5 GM/DL (6.4-8.2)
[2016-11-21 08:00] VITALS: BP 104/60
--- NOTE | 2016-11-21 08:27 | ECGEPIP ---
Stationary ECG Study [facility] - ED Test Date: 2016-11-19 Pat Name: BLAIR NI Department: Room: - Gender: M Hand Singer: JT : 1970 Requested By: Judd Butcher Order Number: [id number] Reading MD: Sana Hanley Measurements Intervals [place] Rate: 85 P: 76 NE: 198 QRS: 34 QRSD: 106 T: 70 QT: 347 QTc: 415 Interpretive Statements SINUS RHYTHM LOW VOLTAGE LIMB NSTTW ABNORMALITY Electronically Signed On 11-21-2016 8:27:21 EDT by Sana Hanley
[2016-11-21] MEDS: MULTIVITAMINS/MINERALS THERAP 1 TAB PO SCH (08:30)
[2016-11-21] MEDS: LACOSAMIDE 50 MG TAB (VIMPAT) PO SCH (08:31)
[2016-11-21] MEDS: VITAMIN D 1,000 INTERNATIONAL UNITS TABLET PO SCH (08:31)
[2016-11-21] MEDS ORDERED: ASPIRIN 81 MG ENTERIC TAB PO SCH (09:00)
[2016-11-21] MEDS ORDERED: CLOPIDOGREL 75 MG TAB PO SCH (09:00)
[2016-11-21 12:00] VITALS: BP 107/60
[2016-11-21] MEDS: MAG SULF 1GM/100ML (MAG RUN) 1 GM in APPROPRIATE DILUENT 1 EA IV SCH ×2 (12:00→13:11)
[2016-11-21] MEDS ORDERED: CLOP75TA2 PO (12:12)
[2016-11-21] MEDS ORDERED: ASPI81TAEC PO (12:12)
--- NOTE | 2016-11-21 15:10 | DSES ---
DATE OF ADMISSION: 11/19/2016 DATE OF DISCHARGE: 11/21/2016 PRIMARY CARE PROVIDER: Huy Callahan NEUROLOGIST: Dr. Jay Escalante CONSULTATIONS: Dr. Escalante PROCEDURES: None. COMPLICATIONS: None. ADMISSION/DISCHARGE DIAGNOSES: 1. Altered mentation with subacute stroke seen on MRI. 2. Difficulty with swallowing with diet modified to pureed. 3. Traumatic brain injury (TBI) at age 13. 4. History of seizure disorder. 5. Vitamin D deficiency. BRIEF HOSPITAL COURSE: Mr. Bush is a 46-year-old gentleman who is taken care of by his brother who provides remarkable care for him. He is involved with day programs and has recently been admitted and discharged for CVA and had been doing well up until 24 hours ago when his brother had noticed that he was more lethargic and that his handwriting had become illegible. The patient is unable to give any form of meaningful history since he is nonverbal. At any rate, he was admitted and observed. Dr. Escalante was consulted. Medications were adjusted. Physical therapy felt that he was close to his baseline and appropriate for home discharge. DIAGNOSTIC STUDIES: Included a head CT which showed bilateral frontal lobe encephalomalacia, which is chronic, and mild volume loss. Chest x-ray showed no acute cardiopulmonary disease. Brain MRI/MRA did demonstrate small subacute right medullary infarct, bilateral frontal lobe encephalomalacia, small vessel ischemic change, mild volume loss, normal MRA with no aneurysms or AV malformations. Carotid ultrasound did show bilateral luminal narrowing of the internal carotids with less than 50% narrowing. No significant stenosis was noted. At any rate, on the day of discharge he was felt to be close to baseline. His handwriting had improved almost back to normal and he was tolerating a pureed diet. I did have a discussion with his brother regarding his DO NOT RESUSCITATE, DO NOT INTUBATE status, which he is DNR/DNI and they did state that they would need to address a no feeding tube to be updated on the Medical Order for Life-Sustaining Treatment (MOLST) form; however, this does need to go to the appropriate channels since he is more or less mentally challenged. His brother stated that he would pursue updating this with the corrections caseworker. PHYSICAL EXAMINATION: Today, temperature is 99.3, pulse 89, respiratory rate 18, blood pressure 104/60, SpO2 is 94% on room air. GENERAL: The patient appears to be in no acute distress, is alert, pleasant. HEENT: Unremarkable. LUNGS: Clear. HEART: Regular rate and rhythm. ABDOMEN: Soft. LABORATORIES: White count is 5.9, hemoglobin 12.5, platelets are 297,000. Sodium 141, potassium 3.8, chloride 107, bicarb 28, anion gap 6, BUN 16, creatinine 0.62, glucose 73, magnesium 1.6 for which is receiving 2 mag runs currently. AST is 16, ALT is 20, alkaline phosphatase 75, albumin 2.6. DISCHARGE CONDITION: Good. DISPOSITION: Discharge to home. DISCHARGE MEDICATIONS: - aspirin dose has been changed to 81 mg daily - we did add on Plavix 75 mg daily - Lipitor 20 mg daily - bisacodyl 10 mg by mouth daily as needed constipation - vitamin D 1000 units twice a day - Vimpat 200 mg twice a day - multivitamin one tablet daily DISCHARGE INSTRUCTIONS: Discharge to home. Activity as tolerated. Pureed diet. Followup with Huy Callahan in approximately a week and Dr. Escalante in 1-2 weeks. Seek medical attention if symptoms should worsen or progress. Family voices understanding. Discharge took approximately 35 minutes.
== END 2016-11-21 15:26 | disposition home or self-care (01) | DRG 66 ==
LOC: M ED 10:37 → M ED INP 17:57 → M PCU 23:54
PROVIDERS: ADMIT Internal Medicine; ATTEND Hospitalist
DX: I63.9 Cerebral infarction, unspecified (principal); G93.89 Other specified disorders of brain; Z66 Do not resuscitate; Z79.899 Other long term (current) drug therapy; Z79.82 Long term (current) use of aspirin; G40.909 Epilepsy, unspecified, not intractable, without status epilepticus; E55.9 Vitamin D deficiency, unspecified; Z88.0 Allergy status to penicillin; Z88.8 Allergy status to other drugs, medicaments and biological substances; I69.322 Dysarthria following cerebral infarction

== ENCOUNTER 2017-01-03 14:50 | Observation (INO) | payer MEDICARE, MEDICAID ==
[~2017-01-03] VITALS: Ht 170.2 cm; Wt 53.5 kg
[~2017-01-03 14:50] MED LIST changes: +ASPI81TAEC PO; +BISAC5TA PO; +CLOP75TA2 PO; +VITA100066 PO
--- NOTE | 2017-01-03 16:35 | REP ---
Portable chest, 04:11 p.m., 01/12/2017, single AP view, patient sitting: Comparisons 11/20/2015. There is thoracic scoliosis convex right, unchanged. Lung osorio are clear. Cardiac size is normal. The deshawn, mediastinum, and bony thorax are unremarkable. No interval change. Impression: Negative portable chest. Signed by Beau Soria MD 01/03/2017 04:26 P
[2017-01-03 17:24] LABS: BASO % 0.3 % (0.0-1.0); EOS # 0.4 K/mm3 (0.0-0.50); EOS % 3.7 % (0.0-3.0); LARGE UNSTAINED CELL # 0.2 K/mm3 (0.0-0.4); LARGE UNSTAINED CELL % 1.6 % (0.0-4.0); LYMPH # 1.6 K/mm3 (1.5-4.5); LYMPH % 15.3 % (24.0-44.0); MEAN CORPUSCULAR HEMOGLOBIN 32.6 pg (27.0-33.0); MEAN CORPUSCULAR HGB CONC 35.4 g/dl (32.0-36.5); MONO # 0.5 K/mm3 (0.0-0.8); MONO % 5.1 % (0.0-5.0); NEUTROPHILS # 7.8 K/mm3 (1.8-7.7); PLATELET COUNT, AUTOMATED 118 k/mm3 (150-450); RED CELL DISTRIBUTION WIDTH 13.9 % (11.5-14.5); WHITE BLOOD COUNT 10.6 K/mm3 (4.0-10.0)
[2017-01-03 17:46] LABS: ALBUMIN 3.2 GM/DL (3.2-5.2); ALKALINE PHOSPHATASE 91 U/L (45-117); ALT/SGPT 106 U/L (12-78); ANION GAP 6 MEQ/L (8-16); AST/SGOT 56 U/L (15-37); BILIRUBIN,DIRECT 0.1 MG/DL (0.0-0.2); BILIRUBIN,TOTAL 0.4 MG/DL (0.2-1.0); BLOOD UREA NITROGEN 19 MG/DL (7-18); CALCIUM LEVEL 9.1 MG/DL (8.5-10.1); CARBON DIOXIDE LEVEL 33 MEQ/L (21-32); CHLORIDE LEVEL 101 MEQ/L (98-107); CREATININE FOR GFR 0.88 MG/DL (0.70-1.30); GLOMERULAR FILTRATION RATE > 60.0 (>60); GLUCOSE, FASTING 69 MG/DL (70-105); SODIUM LEVEL 140 MEQ/L (136-145); TOTAL PROTEIN 7.2 GM/DL (6.4-8.2)
--- NOTE | 2017-01-03 18:10 | REPUSA ---
CLINICAL HISTORY: AMS. TECHNIQUE: Multiple axial CT images were obtained through the brain without IV contrast material. COMMENTS: There is normal configuration of sella turcica. There are no intra or extra-axial collections. There is no mass effect or midline shift. There is no evidence of hematoma formation. No hydrocephalus is p resent. The ventricles are symmetrical. No abnormal calcifications are present. Old left frontal stroke is noted. There is diffuse age-appropriate cerebellar and cerebral atrophy with proportionally dilated ventricl es and cortical sulci. There are bilateral periventricular and subcortical white matter hypolucencies compatible with mild c hronic microvascular disease. Otherwise, no significant focal abnormalities are seen either in the posterior fossa or supratentoria l compartment. IMPRESSION: 1. Age-appropriate cerebellar and cerebral atrophy. 2. Mild chronic microvascular disease. 3. Old left frontal stroke 4. No evidence of acute intracranial pathology. No change in comparison with 11/19/16 study. Thank you for your kind referral of this patient.
[2017-01-03] MEDS ORDERED: NS 500 ML IV ONE (19:30)
--- NOTE | 2017-01-03 19:36 | ECGEPIP ---
Stationary ECG Study [facility] - ED Test Date: 2017-01-03 Pat Name: BLAIR NI Department: Room: - Gender: M Other Sports Official: ct : 1970 Requested By: JAZZY River Order Number: [id number] Reading MD: Sana Hanley Measurements Intervals [place] Rate: 82 P: 58 VT: 208 QRS: -4 QRSD: 117 T: 77 QT: 333 QTc: 389 Interpretive Statements SINUS RHYTHM MODERATE INTRAVENTRICULAR CONDUCTION DELAY NONSPECIFIC T-WAVE ABNORMALITY Electronically Signed On 01-03-2017 19:36:08 EDT by Sana Hanley
[2017-01-03] MEDS ORDERED: DEXTROSE 50% 50 ML SYRINGE IV STA (19:42)
[2017-01-03] MEDS ORDERED: ACETAMINOPHEN TAB 650MG DOSE (2X325MG) PO PRN (19:45)
--- NOTE | 2017-01-03 20:00 | HPEPDOC ---
General Date of Admission Primary Care Physician: NANCY AVALOS MD [facility] Attending Physician: ROBERTA BUSBY MD Chief Complaint The patient is a 46-year-old male admitted with a reason for visit of Altered Mental Status. Source: Caregiver Exam Limitations: Clinical conditions, Physical impairment, Other (physical and mentally impaired) Timing/Duration: Day(s) (5) Severity: Moderate Associated Symptoms: Unobtainable History of Present Illness 46-year-old man, history of CVA, TBI, physically and mentally impaired, was brought by caregiver for altered mental status. Patient had TBI at the age of 13 years. 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 He was able to write legibly, had garbled speech was able to walk and eat with assistance. Also, he had a recent stroke on October 24 2016 , which made him more impaired physically and mentally. Since then, with physical therapy. He improved a bit but his cognitive ability keeps on fluctuating. He was brought to the emergency room because since last 5 days. He is not able to write not able to eat and not able to follow the commands. Home Medications Scheduled Aspirin (Aspirin EC) 81 Mg Tabec, 81 MG PO DAILY Atorvastatin Calcium (Atorvastatin Calcium) 20 Mg Tab, 20 MG PO QHS, (Reported) Cholecalciferol (Vitamin D) 1,000 Unit Tab, 1,000 UNIT PO BID, (Reported) Clopidogrel Bisulfate (Clopidogrel) 75 Mg Tab, 75 MG PO DAILY Lacosamide (Vimpat) 200 Mg Tab, 200 MG PO BID, (Reported) Multivitamins *[facility] STOCKED* (Thera M Plus *[facility] STOCKED*) 1 Tab Tab, 1 TAB PO DAILY, (Reported) Scheduled PRN Bisacodyl (Bisacodyl EC) 5 Mg Tab, 10 MG PO DAILY PRN for CONSTIPATION, ( Reported) Allergies Coded Allergies: Phenytoin (Verified Allergy, Severe, RASH, 10/25/12) Penicillins (Verified Allergy, Mild, HIVES, 10/25/12) Ciprofloxacin (Verified Allergy, Unknown, 11/19/16) hives Sprakers Oil (Verified Adverse Reaction, Intermediate, DIARRHEA, 10/04/16) has explosive diarrhea when pt eats an entire can of corn, has had other corn products throughout his life without issue. Past Medical History Medical History TBI, CVA Surgical History Tracheostomy. Abdomen surgery Family History Significant Family History: No pertinent family hx Social History * Smoker: non-smoker Alcohol: Denies Drugs: denies Recent Travel/Sick Contacts: Denies: Recent travel, Recent sick contacts Review of Symptoms Other systems Unable to obtain due to mental condition Physical Examination General Exam: Positive: No Acute Distress Eye Exam: Positive: Conjunctiva & lids normal, Negative: Sclera icteric ENT Exam: Positive: Atraumatic, Mucous membr. moist/pink Neck Exam: Positive: Supple, Negative: JVD, thyromegaly Chest Exam: Positive: Clear to auscultation, Normal air movement Heart Exam: Positive: Rate Normal, Regular Rhythm, Normal S1, Normal S2, Negative: Murmurs, Rubs Telemetry: Positive: No significant arrhythmia Abdomen Exam: Positive: Normal bowel sounds, Soft, Negative: Tenderness, Hepatospenomegaly Extremity Exam: Positive: Normal pulses, Other (moving the right side. Extremities), Negative: Clubbing, Cyanosis, Edema Skin Exam: Positive: Nl turgor and temperature, Negative: Breakdown, Lesion Neuro Exam: Positive: Other (not following commands, nonverbal) Vital Signs Vital Signs Date Time Temp Pulse Resp B/P (MAP) Pulse Ox O2 Delivery O2 Flow Rate FiO2 01/03/17 19:12 72 96 01/03/17 19:11 90/56 (67) 01/03/17 14:51 97.8 18 Room Air Laboratory Data Labs 24H Laboratory Tests 2 01/03/17 16:59: Anion Gap 6L, Glomerular Filtration Rate > 60.0, Lactic Acid Level 1.0, Calcium Level 9.1, Aspartate Amino Transf (AST/SGOT) 56H, Alanine Aminotransferase (ALT/ SGPT) 106H, Alkaline Phosphatase 91, Total Bilirubin 0.4, Direct Bilirubin 0.1, Ammonia 25, Total Protein 7.2, Albumin 3.2, Albumin/Globulin Ratio 0.80L 01/03/17 17:00: White Blood Count 10.6H, Red Blood Count 4.42, Hemoglobin 14.4, Hematocrit 40.6L , Mean Corpuscular Volume 92.0, Mean Corpuscular Hemoglobin 32.6, Mean Corpuscular Hemoglobin Concent 35.4, Red Cell Distribution Width 13.9, Platelet Count 118L, Neutrophils (%) (Auto) 74.0H, Lymphocytes (%) (Auto) 15.3L, Monocytes (%) (Auto) 5.1H, Eosinophils (%) (Auto) 3.7H, Basophils (%) (Auto) 0.3 , Neutrophils # (Auto) 7.8H, Lymphocytes # (Auto) 1.6, Monocytes # (Auto) 0.5, Eosinophils # (Auto) 0.4, Basophils # (Auto) 0.0, Large Unclassified Cells % 1.6 , Large Unclassified Cells # 0.2 01/03/17 18:38: Urine Appearance CLEAR, Urine Color YELLOW, Urine pH 6.0, Urine Specific [place] 1.011, Urine Protein NEGATIVE, Urine Glucose (UA) NEGATIVE, Urine Ketones NEGATIVE, Urine Urobilinogen 0.2, Urine Bilirubin NEGATIVE, Urine Leukocyte Esterase NEGATIVE, Urine Blood NEGATIVE, Urine Nitrite NEGATIVE, Urine WBC (Auto) 2, Urine RBC (Auto) 1, Urine Hyaline Casts (Auto) 0, Urine Bacteria (Auto) NEGATIVE, Urine Squamous Epithelial Cells 0, Urine Mucus (Auto) SMALL, Urine Sperm (Auto) CBC/BMP Laboratory Tests 01/03/17 16:59 01/03/17 17:00 Red Blood Count 4.42, Mean Corpuscular Volume 92.0, Mean Corpuscular Hemoglobin 32.6, Mean Corpuscular Hemoglobin Concent 35.4, Red Cell Distribution Width 13.9 , Neutrophils (%) (Auto) 74.0 H, Lymphocytes (%) (Auto) 15.3 L, Monocytes (%) ( Auto) 5.1 H, Eosinophils (%) (Auto) 3.7 H, Basophils (%) (Auto) 0.3, Neutrophils # (Auto) 7.8 H, Lymphocytes # (Auto) 1.6, Monocytes # (Auto) 0.5, Eosinophils # (Auto) 0.4, Basophils # (Auto) 0.0 Microbiology Microbiology 01/03/17 Urine Culture, Received Pending Assessment/Plan 46-year-old male history of TBI, CVA, is status post tracheostomy and some abdomen surgery presented with altered mental status for last 5 days Problems (1) Altered mental state Status: Resolved Problem Text: Fingerstick 69 given D50 once, percent is not hypoxic. LFT normal. No signs of drug overdose. No ischemia. Ammonia normal CT head normal. We will get lactic acid. It could be the new baseline for the patient's due to fluctuating mental candies and due to recent history of CVA. This could be new baseline for the present day. 2. Recent history of stroke. Impression prednisone does not deteriorate and that there is no source of altered mental status presented with discharge back to home with new baseline mental condition Plan / VTE VTE Prophylaxis Ordered?: Yes Plan IVF: Initiate Diet: Continue Current Activity: Continue Current Anticipated Discharge: Home With Services Advanced Directives: Health Care Proxy (HCP) CHRISTINA MOORE MD Jan 03, 2017 20:00
[2017-01-03] MEDS ORDERED: ASPI81TA13 PO (20:06)
[2017-01-03] MEDS ORDERED: PLAV75TA38 PO (20:06)
[2017-01-03] MEDS ORDERED: PROM25TA PO (20:07)
[2017-01-03 20:59] LABS: ABG BASE EXCESS 3.9 (-2.0-2.0); ABG HCO3 29.9 MEQ/L (22.0-26.0); ABG PARTIAL PRESSURE CO2 50.6 mmHg (35.0-45.0); ABG PARTIAL PRESSURE O2 95.9 mmHg (75.0-100.0); ABG TOTAL CO2 31.4 MEQ/L (22.0-29.0); ABG pH (ARTERIAL) 7.389 UNITS (7.350-7.450)
[2017-01-03 21:20] VITALS: BP 108/72
[2017-01-03] MEDS: NS 1,000 ML IV SCH (21:55)
[2017-01-04 04:37] LABS: ALBUMIN 2.7 GM/DL (3.2-5.2); ALBUMIN/GLOBULIN RATIO 0.68 (1.00-1.93); ALKALINE PHOSPHATASE 76 U/L (45-117); ALT/SGPT 87 U/L (12-78); ANION GAP 4 MEQ/L (8-16); AST/SGOT 48 U/L (15-37); BILIRUBIN,TOTAL 0.5 MG/DL (0.2-1.0); BLOOD UREA NITROGEN 16 MG/DL (7-18); CALCIUM LEVEL 8.7 MG/DL (8.5-10.1); CARBON DIOXIDE LEVEL 32 MEQ/L (21-32); CHLORIDE LEVEL 106 MEQ/L (98-107); CREATININE FOR GFR 0.57 MG/DL (0.70-1.30); GLOMERULAR FILTRATION RATE > 60.0 (>60); GLUCOSE, FASTING 61 MG/DL (70-105); POTASSIUM SERUM 3.8 MEQ/L (3.5-5.1); SODIUM LEVEL 142 MEQ/L (136-145); TOTAL PROTEIN 6.7 GM/DL (6.4-8.2)
[2017-01-04 04:38] LABS: MEAN CORPUSCULAR HEMOGLOBIN 31.2 pg (27.0-33.0); MEAN CORPUSCULAR HGB CONC 33.6 g/dl (32.0-36.5); MEAN CORPUSCULAR VOLUME 92.9 fl (80.0-96.0); RED CELL DISTRIBUTION WIDTH 14.1 % (11.5-14.5); WHITE BLOOD COUNT 7.7 K/mm3 (4.0-10.0)
[2017-01-04] MEDS: NS 1,000 ML IV SCH ×2 (05:59→15:42)
[2017-01-04 06:00] VITALS: BP 133/79
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
[2017-01-04] MEDS: ASPIRIN 81 MG ENTERIC TAB PO SCH (12:38)
[2017-01-04] MEDS: CLOPIDOGREL 75 MG TAB PO SCH (12:39)
[2017-01-04] MEDS: LACOSAMIDE 50 MG TAB (VIMPAT) PO SCH ×2 (12:39→21:02)
[2017-01-04] MEDS: MULTIVITAMINS/MINERALS THERAP 1 TAB PO SCH (12:39)
[2017-01-04 14:00] VITALS: BP 132/78
[2017-01-04] MEDS: ATORVASTATIN 20 MG TAB PO SCH (21:02)
[2017-01-04 22:00] VITALS: BP 138/84
[2017-01-05] MEDS: NS 1,000 ML IV SCH (02:15)
[2017-01-05 06:00] VITALS: BP 115/69
[2017-01-05 06:46] LABS: MEAN CORPUSCULAR HEMOGLOBIN 32.3 pg (27.0-33.0); MEAN CORPUSCULAR HGB CONC 35.4 g/dl (32.0-36.5); MEAN CORPUSCULAR VOLUME 91.4 fl (80.0-96.0); RED CELL DISTRIBUTION WIDTH 14.1 % (11.5-14.5)
[2017-01-05 07:10] LABS: ALBUMIN 2.6 GM/DL (3.2-5.2); ALBUMIN/GLOBULIN RATIO 0.67 (1.00-1.93); ALKALINE PHOSPHATASE 88 U/L (45-117); ALT/SGPT 96 U/L (12-78); ANION GAP 5 MEQ/L (8-16); AST/SGOT 58 U/L (15-37); BILIRUBIN,TOTAL 0.4 MG/DL (0.2-1.0); BLOOD UREA NITROGEN 12 MG/DL (7-18); CALCIUM LEVEL 8.7 MG/DL (8.5-10.1); CARBON DIOXIDE LEVEL 30 MEQ/L (21-32); CHLORIDE LEVEL 107 MEQ/L (98-107); CREATININE FOR GFR 0.51 MG/DL (0.70-1.30); GLOMERULAR FILTRATION RATE > 60.0 (>60); GLUCOSE, FASTING 76 MG/DL (70-105); POTASSIUM SERUM 3.9 MEQ/L (3.5-5.1); SODIUM LEVEL 142 MEQ/L (136-145); TOTAL PROTEIN 6.5 GM/DL (6.4-8.2)
[2017-01-05] MEDS: ASPIRIN 81 MG ENTERIC TAB PO SCH (10:23)
[2017-01-05] MEDS: CLOPIDOGREL 75 MG TAB PO SCH (10:23)
[2017-01-05] MEDS: MULTIVITAMINS/MINERALS THERAP 1 TAB PO SCH (10:24)
[2017-01-05] MEDS: LACOSAMIDE 50 MG TAB (VIMPAT) PO SCH ×2 (10:24→20:37)
[2017-01-05 14:00] VITALS: BP 119/77
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
--- NOTE | 2017-01-05 15:34 | REP ---
MR BRAIN WITHOUT CONTRAST: HISTORY: Altered mental status. COMPARISON: MR 11/19/[address] 01/03/2017. Areas of increased signal intensity on T2-weighted images are present in the frontal lobes. There is dilatation of the overlying cortical sulci and anterior horns of the lateral ventricles. This represents gliosis and encephalomalacia. A small chronic hemorrhagic component is present in the left frontal lobe. Areas of increased signal intensity on T2-weighted images are present in the periventricular and subcortical white matter. This represents small vessel ischemic disease. There is no acute intraparenchymal hemorrhage, acute infarct, mass, or midline shift. The ventricular system and cortical sulci are dilated consistent with mild volume loss. There is no extracerebral collection. A retention cyst is present in the left maxillary sinus. IMPRESSION: 1. Bilateral frontal lobe encephalomalacia. 2. Small vessel ischemic disease. 3. Mild volume loss. Signed by John Hearn MD 01/05/2017 03:36 P
[2017-01-05] MEDS: ATORVASTATIN 20 MG TAB PO SCH (20:36)
[2017-01-05 22:00] VITALS: BP 125/89
[2017-01-06 06:00] VITALS: BP 124/68
[2017-01-06 07:18] LABS: MEAN CORPUSCULAR HEMOGLOBIN 32.6 pg (27.0-33.0); MEAN CORPUSCULAR HGB CONC 35.5 g/dl (32.0-36.5); MEAN CORPUSCULAR VOLUME 91.8 fl (80.0-96.0); RED CELL DISTRIBUTION WIDTH 14.3 % (11.5-14.5); WHITE BLOOD COUNT 7.3 K/mm3 (4.0-10.0)
[2017-01-06 07:42] LABS: ALBUMIN 2.6 GM/DL (3.2-5.2); ALBUMIN/GLOBULIN RATIO 0.65 (1.00-1.93); ALKALINE PHOSPHATASE 88 U/L (45-117); ALT/SGPT 88 U/L (12-78); ANION GAP 5 MEQ/L (8-16); AST/SGOT 47 U/L (15-37); BILIRUBIN,TOTAL 0.3 MG/DL (0.2-1.0); BLOOD UREA NITROGEN 13 MG/DL (7-18); CALCIUM LEVEL 8.9 MG/DL (8.5-10.1); CARBON DIOXIDE LEVEL 31 MEQ/L (21-32); CHLORIDE LEVEL 108 MEQ/L (98-107); CREATININE FOR GFR 0.57 MG/DL (0.70-1.30); GLOMERULAR FILTRATION RATE > 60.0 (>60); GLUCOSE, FASTING 66 MG/DL (70-105); POTASSIUM SERUM 3.7 MEQ/L (3.5-5.1); SODIUM LEVEL 144 MEQ/L (136-145); TOTAL PROTEIN 6.6 GM/DL (6.4-8.2)
[2017-01-06] MEDS: MULTIVITAMINS/MINERALS THERAP 1 TAB PO SCH (08:48)
[2017-01-06] MEDS: LACOSAMIDE 50 MG TAB (VIMPAT) PO SCH (08:48)
[2017-01-06] MEDS: CLOPIDOGREL 75 MG TAB PO SCH (08:48)
[2017-01-06] MEDS: ASPIRIN 81 MG ENTERIC TAB PO SCH (08:48)
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
== END 2017-01-06 10:11 | disposition home or self-care (01) ==
LOC: M ED 17:20 → M ED INP 19:42 → M MSPAV 21:18
PROVIDERS: ADMIT Internal Medicine; ATTEND Internal Medicine
DX: R41.2 Retrograde amnesia (principal); R56.9 Unspecified convulsions; Z86.73 Personal history of transient ischemic attack (TIA), and cerebral infarction without residual deficits; Z87.820 Personal history of traumatic brain injury; Z79.82 Long term (current) use of aspirin; Z79.899 Other long term (current) drug therapy; Z88.0 Allergy status to penicillin
CPT/HCPCS: 36415; 36600; 70450; 70551; 71010; 80048; 80053; 80076; 81001; 82140; 82803; 83605; 84484; 85025; 85027; 87086; 93005; 93041; 99285; G0378

== ENCOUNTER 2017-07-06 08:36 | Inpatient (IN) | payer MEDICARE, MEDICAID ==
[~2017-07-06] VITALS: Ht 172.7 cm; Wt 62.5 kg
[~2017-07-06 08:36] MED LIST changes: +ASPI81TA24 PO; -AVEL1TAB PO; +AVEL1TAB3 PO; +CIPR-249 PO; -CIPR500T89 PO; -COLA100C3 PO; +COLA100C5 PO; +LEVA1TAB2 PO; -LEVA500T PO; -LEVA750T PO; +LEVA750T7 PO; -NYST100024 TOP; +NYST1POW9 TOP; +PHEN-500 PO; -PHEN1TAB80 PO; +PLAV1TAB2 PO; -VITA100037 PO; +VITA100067 PO; +VITA1CAP40 PO; -VITA50003 PO
[2017-07-06] MEDS: MULTIVITAMINS/MINERALS THERAP 1 TAB PO SCH (09:00)
[2017-07-06] MEDS: LACOSAMIDE 50 MG TAB (VIMPAT) PO SCH ×2 (09:00→20:59)
[2017-07-06] MEDS ORDERED: NS 1,000 ML IV ONE ×2 (09:00→11:00)
--- NOTE | 2017-07-06 09:15 | REP ---
Portable chest, 09:00 a.m., single AP view, the patient semi upright: Comparison is 2016. Lung osorio are clear. Cardiac size is normal. There is thoracic scoliosis convex right. The deshawn, mediastinum, and bony thorax are unremarkable. Impression: There are no acute cardiopulmonary findings. Signed by Beau Soria MD 07/06/2017 09:07 A
[2017-07-06 09:40] LABS: VENOUS BASE EXCESS 3.8 (-2.0-2.0); VENOUS O2 SATURATION 95.7 % (60.0-80.0); VENOUS PARTIAL PRESSURE CO2 48.3 mmHg (38.0-50.0); VENOUS PARTIAL PRESSURE O2 80.5 mmHg (30.0-50.0); VENOUS STANDARD HCO3 27.8 MEQ/L; VENOUS TOTAL CO2 30.9 MEQ/L (24.0-28.0)
[2017-07-06 09:47] LABS: EOS # 0.1 10^3/uL (0.0-0.50); EOS % 1.6 % (0.0-3.0); IMMATURE GRANULOCYTE % 0.2 % (0-0); LYMPH # 0.6 10^3/uL (1.5-4.5); LYMPH % 7.2 % (24.0-44.0); MEAN CORPUSCULAR HEMOGLOBIN 31.6 pg (27.0-33.0); MEAN CORPUSCULAR HGB CONC 34.4 g/dl (32.0-36.5); MEAN CORPUSCULAR VOLUME 91.7 fl (80.0-96.0); MONO # 0.6 10^3/uL (0.0-0.8); MONO % 7.2 % (0.0-5.0); NEUTROPHILS # 6.8 10^3/uL (1.8-7.7); NEUTROPHILS % 83.8 % (36.0-66.0); PLATELET COUNT, AUTOMATED 110 10^3/uL (150-450); RED CELL DISTRIBUTION WIDTH 13.7 % (11.5-14.5); WHITE BLOOD COUNT 8.2 10^3/uL (4.0-10.0)
[2017-07-06 09:53] LABS: INR 0.93
[2017-07-06 10:07] LABS: ALBUMIN/GLOBULIN RATIO 0.91 (1.00-1.93); ALKALINE PHOSPHATASE 81 U/L (45-117); ALT/SGPT 74 U/L (12-78); AMYLASE 41 U/L (25-115); ANION GAP 6 MEQ/L (8-16); AST/SGOT 50 U/L (7-37); BILIRUBIN,DIRECT 0.1 MG/DL (0.0-0.2); BILIRUBIN,TOTAL 0.4 MG/DL (0.2-1.0); BLOOD UREA NITROGEN 13 MG/DL (7-18); CALCIUM LEVEL 8.5 MG/DL (8.5-10.1); CARBON DIOXIDE LEVEL 30 MEQ/L (21-32); CHLORIDE LEVEL 107 MEQ/L (98-107); CREATININE FOR GFR 0.64 MG/DL (0.70-1.30); GLOMERULAR FILTRATION RATE > 60.0 (>60); GLUCOSE, FASTING 73 MG/DL (70-105); SODIUM LEVEL 143 MEQ/L (136-145); TOTAL PROTEIN 6.3 GM/DL (6.4-8.2)
[2017-07-06] MEDS ORDERED: ISOVUE-370 76% 100ML VIAL (Q9967) As Ordered ONE (11:06)
--- NOTE | 2017-07-06 12:04 | REP ---
CT CHEST WITH IV CONTRAST: TECHNIQUE: Axial contrast enhanced images from the thoracic inlet to the upper abdomen using 100 mL Isovue 370 intravenous contrast material with multiplanar reformations. There is mild scattered patchy atelectasis or infiltrate in the left lower lobe. There are mild dependent atelectatic changes in the right lower lobe. Lungs are otherwise unremarkable in appearance. There is no mediastinal, hilar or chest wall lymphadenopathy. There is no pleural or pericardial effusion. Heart is normal in size. There are degenerative changes of the spine. IMPRESSION: Mild scattered patchy atelectasis or infiltrate left lower lobe. Signed by Beau Wells MD 07/07/2017 09:01 A
--- NOTE | 2017-07-06 12:07 | REP ---
CT ABDOMEN AND PELVIS WITH IV CONTRAST: TECHNIQUE: Axial contrast enhanced images from the lung bases to the pubic symphysis using 100 mL Isovue 370 intravenous contrast material with multiplanar reformations. Liver, spleen, adrenals, pancreas, and kidneys appear unremarkable. There is no hydronephrosis. There is no abdominal aortic aneurysm. There is no adenopathy. There is no free air or free fluid. There is no bowel wall thickening. There is no evidence of appendicitis. No pelvic mass is seen. Urinary bladder is mild to moderately distended and appears grossly unremarkable. There are degenerative changes of the spine. 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 IMPRESSION: No acute abnormalities in the abdomen or pelvis. No free air or free fluid. No evidence of bowel wall thickening. Signed by Beau Wells MD 07/07/2017 09:01 A
[2017-07-06] MEDS ORDERED: ONDANSETRON 4MG/2ML VIAL (J2405) IV PRN (12:30)
[2017-07-06] MEDS ORDERED: OMEP40CA2 PO (13:01)
[2017-07-06 13:08] LABS: PROLACTIN 6.7 NG/ML (2.1-17.7)
[2017-07-06] MEDS ORDERED: PROMETHAZINE 25 MG TAB PO PRN (13:15)
[2017-07-06] MEDS ORDERED: BISACODYL 5 MG TAB PO PRN (13:15)
[2017-07-06] MEDS ORDERED: LORazepam 2 MG/ML VIAL (J2060) IV PRN (13:45)
[2017-07-06] MEDS ORDERED: DIVALPROEX 500MG *ER* TAB PO ONE (14:00)
[2017-07-06] MEDS ORDERED: AZITHROMYCIN INJ 500 MG, VIAL MATE ADAPTER 1 EACH in D5W 250 ML IV SCH (14:00)
[2017-07-06] MEDS ORDERED: CEFTRIAXONE SOD 2 GM in APPROPRIATE DILUENT 1 EA IV SCH (15:00)
[2017-07-06] MEDS: HEPARIN SOD (PORCINE) 5000 UNITS/ML VIAL SC SCH ×2 (15:10→21:00)
[2017-07-06] MEDS: NS 1,000 ML IV SCH (15:10)
[2017-07-06 15:20] VITALS: BP 109/67
[2017-07-06] MEDS: ASPIRIN 81 MG ENTERIC TAB PO SCH (15:58)
[2017-07-06] MEDS: OMEPRAZOLE 20 MG CAP PO SCH (15:58)
[2017-07-06 20:00] VITALS: BP 118/82
[2017-07-06] MEDS: ATORVASTATIN 20 MG TAB PO SCH (20:59)
[2017-07-06] MEDS: VITAMIN D 1,000 INTERNATIONAL UNITS TABLET PO SCH (20:59)
[2017-07-06] MEDS: LACTOBACILLUS ACIDOPHILUS CAP (BACID) PO SCH (20:59)
--- NOTE | 2017-07-06 21:14 | ECGEPIP ---
Stationary ECG Study [facility] - ED Test Date: 2017-07-06 Pat Name: BLAIR NI Department: Room: - Gender: M Edm Operator: TRICIA : [id number] Requested By: Sana Hanley Order Number: [id number] Reading MD: Sana Hanley Measurements Intervals [place] Rate: 116 P: 69 DE: 194 QRS: 34 QRSD: 102 T: 74 QT: 304 QTc: 424 Interpretive Statements SINUS TACHYCARDIA MINIMAL ST DEPRESSION ABNORMAL RHYTHM ECG LOW VOLTAGE LIMB INCREASED RATE 01/03/17 Electronically Signed On 07-06-2017 21:14:31 EST by Sana Hanley
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
[2017-07-06 23:59] VITALS: BP 118/61
[2017-07-07] VITALS (36 sets, daily range): BP systolic 68–129; BP diastolic 40–86; O2SAT 100
[2017-07-07] MEDS: NS 1,000 ML IV SCH (01:40)
[2017-07-07] MEDS ORDERED: NS 500 ML IV ONE (04:15)
[2017-07-07] MEDS ORDERED: NS 1,000 ML IV ONE ×2 (05:00→06:45)
[2017-07-07] MEDS: HEPARIN SOD (PORCINE) 5000 UNITS/ML VIAL SC SCH ×2 (06:08→14:51)
[2017-07-07 06:42] LABS: BASO % 0.1 % (0.0-1.0); EOS # 0.1 10^3/uL (0.0-0.50); EOS % 0.6 % (0.0-3.0); IMMATURE GRANULOCYTE % 0.2 % (0-0); LYMPH # 1.4 10^3/uL (1.5-4.5); LYMPH % 16.7 % (24.0-44.0); MEAN CORPUSCULAR HEMOGLOBIN 31.2 pg (27.0-33.0); MEAN CORPUSCULAR HGB CONC 33.7 g/dl (32.0-36.5); MEAN CORPUSCULAR VOLUME 92.7 fl (80.0-96.0); MONO # 0.6 10^3/uL (0.0-0.8); MONO % 7.5 % (0.0-5.0); NEUTROPHILS # 6.4 10^3/uL (1.8-7.7); NEUTROPHILS % 74.9 % (36.0-66.0); WHITE BLOOD COUNT 8.6 10^3/uL (4.0-10.0)
[2017-07-07 07:17] LABS: ALBUMIN/GLOBULIN RATIO 0.86 (1.00-1.93); ALKALINE PHOSPHATASE 74 U/L (45-117); ALT/SGPT 75 U/L (12-78); ANION GAP 12 MEQ/L (8-16); AST/SGOT 65 U/L (7-37); BILIRUBIN,DIRECT < 0.1 MG/DL (0.0-0.2); BILIRUBIN,TOTAL 0.5 MG/DL (0.2-1.0); BLOOD UREA NITROGEN 14 MG/DL (7-18); CALCIUM LEVEL 8.2 MG/DL (8.5-10.1); CARBON DIOXIDE LEVEL 22 MEQ/L (21-32); CHLORIDE LEVEL 113 MEQ/L (98-107); CHOLESTEROL LEVEL 115 MG/DL (<200); CREATININE FOR GFR 0.72 MG/DL (0.70-1.30); GLOMERULAR FILTRATION RATE > 60.0 (>60); GLUCOSE, FASTING 47 MG/DL (70-105); MAGNESIUM LEVEL 1.8 MG/DL (1.8-2.4); POTASSIUM SERUM 4.3 MEQ/L (3.5-5.1); SODIUM LEVEL 147 MEQ/L (136-145); TOTAL PROTEIN 6.5 GM/DL (6.4-8.2); TRIGLYCERIDES LEVEL 62 MG/DL (<150)
[2017-07-07 07:27] LABS: PLATELET COUNT, AUTOMATED 92 10^3/uL (150-450); PLT CLUMPS? POS FLAG; POS COUNT POS FLAG
[2017-07-07] MEDS ORDERED: SODIUM CHLORIDE 0.9% 1000 ML IV ONE ×2 (08:00→11:00)
[2017-07-07] MEDS: LACTOBACILLUS ACIDOPHILUS CAP (BACID) PO SCH ×2 (08:38→20:37)
[2017-07-07] MEDS: ASPIRIN 81 MG ENTERIC TAB PO SCH (08:38)
[2017-07-07] MEDS: VITAMIN D 1,000 INTERNATIONAL UNITS TABLET PO SCH ×2 (08:39→20:36)
[2017-07-07] MEDS: MULTIVITAMINS/MINERALS THERAP 1 TAB PO SCH (08:39)
[2017-07-07] MEDS: OMEPRAZOLE 20 MG CAP PO SCH (08:39)
[2017-07-07] MEDS: LR 1,000 ML IV SCH ×3 (08:59→18:48)
[2017-07-07] MEDS: LACOSAMIDE 50 MG TAB (VIMPAT) PO SCH (09:00)
[2017-07-07] MEDS ORDERED: INFLUENZA QUADRIVALENT PF VACCINE 0.5ML SYRINGE (90686) IM SCH (09:00)
[2017-07-07] MEDS ORDERED: cefTRIAXone SOD 2 GM VIAL (J0696) IV SCH (09:00)
[2017-07-07] MEDS ORDERED: SODIUM CHLORIDE 0.9% 1000 ML IV SCH (09:45)
--- NOTE | 2017-07-07 09:45 | REP ---
CT of the chest without IV contrast: Comparison is 07/06/2017. The left lower lobe infiltrate has increased in size. There is a new small right lower lobe infiltrate as an interval change. The remainder of the lung osorio are clear and unchanged. There is no mediastinal or axillary adenopathy. The study is insensitive for hilar adenopathy, however there is no hilar adenopathy on the comparison study. The esophagus is air filled and distended. This may indicate a stricture of the distal esophagus. This was not present previously. Thoracic aorta is unremarkable. Cardiac size is upper normal. There is no pericardial effusion. The visualized upper abdominal contents are unremarkable. Impression: The left lower lobe infiltrate has increased in size. There is a new right lower lobe infiltrate. The esophagus is air filled and distended, compatible with a stricture of the distal esophagus. Signed by Beau Soria MD 07/07/2017 09:35 A
[2017-07-07] MEDS: MEROPENEM INJ 1 GM in APPROPRIATE DILUENT 1 EA IV SCH ×2 (09:47→16:44)
[2017-07-07] MEDS ORDERED: NOREPINEPHRINE BITARTRATE 8 MG in D5W 500 ML IV SCH (10:00)
[2017-07-07 10:23] LABS: ABG BASE EXCESS -9.8 (-2.0-2.0); ABG HCO3 17.6 MEQ/L (22.0-26.0); ABG PARTIAL PRESSURE CO2 44.3 mmHg (35.0-45.0); ABG PARTIAL PRESSURE O2 57.1 mmHg (75.0-100.0); ABG STANDARD HCO3 16.4 MEQ/L (22.0-26.0); ABG TOTAL CO2 18.9 MEQ/L (22.0-29.0)
[2017-07-07 10:29] LABS: ABG pH (ARTERIAL) 7.216 UNITS (7.350-7.450)
--- NOTE | 2017-07-07 10:54 | REP ---
Portable chest, 10:44 a.m.: Comparisons 07/06/2017. The lung osorio are clear. The cardiac size is normal. The deshawn, mediastinum, and bony thorax are unremarkable. Impression: Negative portable chest. No interval change. Signed by Beau Soria MD 07/07/2017 10:45 A
[2017-07-07 10:55] LABS: CORTISOL AM 26.6 UG/DL (4.3-22.4)
[2017-07-07] MEDS ORDERED: VANCOMYCIN HCL 500 MG in D5W MINI-BAG PLUS 100 ML IV ONE (11:00)
[2017-07-07] MEDS ORDERED: LACTATED RINGER'S 1000 ML IV ONE (11:30)
[2017-07-07] MEDS: SODIUM CHLORIDE HYPERTONIC 3% 15ML NEB SOL INH SCH ×4 (12:00→23:52)
--- NOTE | 2017-07-07 12:05 | RO ---
DATE OF PROCEDURE: 07/07/2017 PREPROCEDURE DIAGNOSIS: Hypertension. Sepsis. Need for pressors and cardiac monitoring. POSTPROCEDURE DIAGNOSIS: Hypertension. Sepsis. Need for pressors and cardiac monitoring. PROCEDURE: Insertion of left subclavian central line. SURGEON: Dr. Floyd De La Cruz MANAGER OF INTERNATIONAL: ANESTHESIA: DESCRIPTION OF PROCEDURE: The patient was prepped and draped in the usual sterile fashion. The left infraclavicular fossa was infiltrated with 1% Xylocaine. The vein was found on the third pass. Wire was placed without difficulty with production of PVCs. The tract was dilated and a triple lumen catheter was placed without difficulty by Seldinger technique. The catheter ports were aspirated and flushed without difficulty and the catheter was secured to the chest wall with a #3-0 silk suture. The patient tolerated the procedure well and a chest x-ray is pending.
[2017-07-07 12:20] LABS: ANION GAP 10 MEQ/L (8-16); BLOOD UREA NITROGEN 16 MG/DL (7-18); CALCIUM LEVEL 7.3 MG/DL (8.5-10.1); CARBON DIOXIDE LEVEL 24 MEQ/L (21-32); CHLORIDE LEVEL 115 MEQ/L (98-107); CREATININE FOR GFR 0.73 MG/DL (0.70-1.30); GLOMERULAR FILTRATION RATE > 60.0 (>60); GLUCOSE, FASTING 74 MG/DL (70-105); SODIUM LEVEL 149 MEQ/L (136-145)
[2017-07-07] MEDS: VANCOMYCIN HCL 1,000 MG, VIAL MATE ADAPTER 1 EACH in D5W 250 ML IV SCH ×2 (13:05→18:48)
--- NOTE | 2017-07-07 13:16 | PHACANCOPD ---
PHARMACY VANCOMYCIN DOSING Pt Demographics Demographics Patient Age:46 , Weight:58.900 , Gender: male Adjusted Body Weight Date: 07/07/17, Adjusted Body Weight: Kg Events Past 24 Hours Events Past 24 Hours: YES: Other, NO: Dialysis, Diuretic Therapy, Change in CrCl, Fever, Elevation in WBC, Pending Diagnostics, Pending Procedures Vancomycin Vancomycin indication: RESPIRATORY INFECTION Vancomycin Target Ranges: 10-20 mcg/ml Vancomycin Load Y/N: Yes Load Dose Date Time Vancomycin Load Dose: 1500MG Date: 07/07 Time: 1000 Vancomycin Dose Date: 07/07/17. Current Vancomycin Dose: [1GM IV Q8H@10] Intermittent Dosing?: No Labs Labs Item Value Date Time White Blood Count 8.6 10^3/uL 07/07/17 0617 Lactic Acid Level 6.6 MMOL/L *H 07/07/17 0945 Vital Signs Label Value Date Time Patient Temperature 94.9 degrees F 07/07/17 0800 Temperature Source Temporal 07/07/17 0800 Blood Pressure Assessment 78/50 (59) 07/07/17 1116 Micro Microbiology 07/07/17 Blood Culture, Received Pending 07/07/17 Blood Culture, Received Pending 07/06/17 Blood Culture - Preliminary, Resulted No growth after 24 hours . All specim... 07/06/17 Blood Culture - Preliminary, Resulted No growth after 24 hours . All specim... 07/06/17 MRSA Screen, Resulted Pending 07/06/17 Respiratory Virus Panel (PCR) (SHAKIR) - Final, Resulted 07/06/17 Influenza Virus Type A Antigen - Final, Complete 07/06/17 Influenza Virus Type B Antigen - Final, Complete Creatinine Clearance Date:07/07/17. Creatinine Clearance: . Assessment and Plan Maintaining Current Dose?: Yes Reason for dose change: No Dose Change Pharmacist Note Pharmacist Note Date: 07/07/17. Pharmacist note: Patient's antibiotics were switched from Ceftriaxone and Azithromycin to Meropenem and Vancomycin today for treatment of Pneumonia. His condition has deteriorated over the past 24 hours. His body temperature has dropped to 94.5, his blood pressure has dropped. He was transferred to ICU and placed on Norepinephrine drip. He was loaded with Vancomycin 1500mg, and continued on 1gm IV q8h for now. We will monitor his levels and make adjustments as necessary. [facility]OL [facility] Jul 07, 2017 13:16
--- NOTE | 2017-07-07 13:40 | REP ---
PORTABLE CHEST: AP portable view of the chest is performed and compared to a prior study of the same day. There is placement of a left central venous catheter. The tip is in the right atrium. There is no pneumothorax. No other acute changes are seen. Signed by Beau Wells MD 07/08/2017 09:12 A
--- NOTE | 2017-07-07 13:45 | IPN ---
EVENT NOTE DATE: 07/07/2017 Patient was seen and examined this morning by myself at 8:30 a.m. For full progress note, please see Dr. Matthews's note from today's date. At the time of my arrival, the patient appeared to be rather lethargic and was hypotensive. He was examined in the presence of his caregiver who expressed immediate concern of his decline over the last 24 hours. Review of the records reveals that the patient's blood pressure has been hemodynamically stable until midnight, but was noted to be hypotensive around 3:48. Since that time, he did receive initial bolus at 4:15 for 500 mL, and then at 5 o'clock was ordered for an additional 1 liter bolus and then once again bolused at 6:45 for an additional liter. The patient's initial lactic acid was normal. Upon visiting the patient early this morning, I did order a repeat lactic acid at 6:40 a.m. and unfortunately this was not collected as ordered. I did call the lab and order it once again stat and informed them that it should be drawn immediately at 9:45. I did express concern to the patient's caregiver that I had suspicion for urinary retention, given he had some blood around his meatus as well as possible aspiration given his history of aspiration in the past and his CT findings. The plan was for a central venous catheter placement, repeat CT scan, broadening of antibiotics, and transfer to the medical intensive care unit with potential initiation for Levophed and placement of a Leal catheter. Dr. De La Cruz has been notified and is agreeable for placing a central venous catheter. He also recommended chest PT, hypertonic saline. The patient will continue to be nothing by mouth and we have elevated the had of his bed. He does appear to be improving at this time. Will continue to bolus him with IV fluids as per sepsis bundle recommendations. We will use Lactated Ringer's as he does have a significant lactic acidosis at 6.6. We will continue to follow him closely. His clinical status remains guarded. I did discuss code status and the patient did have previously a DNR/DNI, but his brother, however given that he does not have capacity to make this decision, it was reportedly rescinded. With that being, the patient is a FULL CODE.
--- NOTE | 2017-07-07 15:03 | IPNPDOC ---
Subjective Date Seen The patient was seen on 07/07/17. Subjective Chief Complaint/HPI The patient is a 46-year-old male admitted with a reason for visit of Pneumonia, Seizure. Events since last encounter The patient is largely nonverbal at baseline, however this morning he was quite lethargic and was very slow to respond to any stimuli. No review of systems could be obtained. Objective Physical Examination General Exam: Negative: Alert, Cooperative Chest Exam: Positive: Rales (at the bases), Diminished, Negative: Rhonchi, Wheezing Heart Exam: Positive: Rate Normal, Negative: Gallops, Murmurs, Rubs Telemetry: Positive: No significant arrhythmia Abdomen Exam: Positive: Normal bowel sounds, Soft, Negative: Hepatospenomegaly Extremity Exam: Positive: Normal pulses, Other (his left upper extremity is chronically contracted, and his left lower extremity as both atrophied and contracted as well), Negative: Clubbing, Cyanosis, Edema Skin Exam: Negative: Nl turgor and temperature (he is quite cold to the touch) , Rash Neuro Exam: Positive: Other (he is quite lethargic, he does appear to be moving his right arm and leg however. His left arm and leg have not been useful for many years now) Psych Exam: Negative: Mental status NL Assessment /Plan Problems (1) Sepsis Status: Acute (2) Septic shock Status: Acute (3) Metabolic acidosis Status: Acute (4) Metabolic encephalopathy Status: Acute (5) Hypothermia due to non-environmental cause Onset Date: 07/25/2014 Status: Acute (6) Aspiration pneumonia Status: Acute (7) History of CVA (cerebrovascular accident) Status: Chronic Problem Text: Continue aspirin and Plavix (8) History of traumatic brain injury Status: Chronic (9) Seizure Onset Date: 07/25/2014 Status: Chronic Problem Text: He did have a breakthrough seizure, the likely etiology is a administration of ciprofloxacin which is known to lower the seizure threshold. This was his presentation to the hospital. Plan/VTE VTE Prophylaxis Ordered?: Yes (heparin) Plan Mr. Bush and did decompensate earlier this morning. He was given multiple boluses of normal saline, and his pressure was not improving. A rectal temperature was taken and he was found to be hypothermic as well. His pulse was also slowing down. A central line was placed by Dr. De La Cruz, his help is greatly appreciated. His initial CVP was 6. Additional boluses of lactated Ringer's have been ordered, and he is now placed on levophed for his sepsis and septic shock. The etiology of his decompensation is still unknown. The most likely scenario is that when he had his seizure he also aspirated some food contents and we are now dealing with an aspiration pneumonia with sepsis and septic shock. He may have been predisposed to this and given a lower esophageal stricture that is noted on the CT. His antibiotics have been broadened at this point, and he is on meropenem and IV vancomycin. He does have quite a bit of mucus or other contents in his main bronchial tree, and he is not able to cough sufficiently well even at baseline, therefore the vibrational vest and hypertonic saline has also been ordered. Other possible etiologies for his acute decompensation may be that he had been treated for a UTI outpatient, and when a straight cath was obtained last night, there appears to have been some trauma (per blood on the meatus), therefore even though he has negative urinalysis at this point, there is a possibility of gram-negative bacteremia as well. A Leal catheter has now been placed to monitor her I's and O's, where he was placed approximately 300- 400 mL of urine was immediately drained. Earlier this morning his mental status was significantly reduced, therefore I would suspect that this is metabolic encephalopathy secondary to sepsis and septic shock. After the aforementioned treatments, he does appear to be a little bit more responsive. VS, I&O, 24H, Salvatore Vital Signs/I&O Vital Signs Date Time Temp Pulse Resp B/P (MAP) Pulse Ox O2 Delivery O2 Flow Rate FiO2 07/07/17 12:30 65 14 98/60 (73) 100 Aerosol Mask 07/07/17 12:15 15.0 07/07/17 12:05 95.7 07/07/17 11:42 100 I&O- Last 24 Hours up to 6 AM 07/08/17 06:00 Intake Total 1000 ml Output Total 500 ml Balance 500 ml Laboratory Data 24H LABS Laboratory Tests 2 07/06/17 18:50: 07/07/17 06:17: Immature Granulocyte % (Auto) 0.2H, White Blood Count 8.6, Red Blood Count 4.23L , Hemoglobin 13.2L, Hematocrit 39.2L, Mean Corpuscular Volume 92.7, Mean Corpuscular Hemoglobin 31.2, Mean Corpuscular Hemoglobin Concent 33.7, Red Cell Distribution Width 14.0, Platelet Count 92L, Neutrophils (%) (Auto) 74.9H, Lymphocytes (%) (Auto) 16.7L, Monocytes (%) (Auto) 7.5H, Eosinophils (%) (Auto) 0.6, Basophils (%) (Auto) 0.1, Neutrophils # (Auto) 6.4, Lymphocytes # (Auto) 1.4L, Monocytes # (Auto) 0.6, Eosinophils # (Auto) 0.1, Basophils # (Auto) 0.0, Immature Granulocyte # (Auto) 0.0, Nucleated Red Blood Cells % (auto) 0.0, Immature Platelet Fraction , Anion Gap 12, Glomerular Filtration Rate > 60.0, Calcium Level 8.2L, Magnesium Level 1.8, Aspartate Amino Transf (AST/SGOT) 65H, Alanine Aminotransferase (ALT/SGPT) 75, Alkaline Phosphatase 74, Total Bilirubin 0.5, Direct Bilirubin < 0.1, Total Protein 6.5, Albumin 3.0L, Albumin/ Globulin Ratio 0.86L, Triglycerides Level 62, Total Cholesterol 115, LDL Cholesterol 33.6, Non-HDL Cholesterol (LDL + VLDL) 46, Total HDL Cholesterol 69 , Cholesterol/HDL Ratio 1.666, Hepatitis A IgM Antibody NEGATIVE, Hepatitis B Surface Antigen NEGATIVE, Hepatitis B Core IgM Antibody NEGATIVE, Hepatitis C Antibody Index 0.1 07/07/17 09:45: Lactic Acid Level 6.6*H, Thyroid Stimulating Hormone (TSH) 1.470, Cortisol AM Sample 26.6H 07/07/17 10:09: Blood Gas Bicarbonate Standard 16.4L, Arterial Blood pH 7.216*L, Arterial Blood Partial Pressure CO2 44.3, Arterial Blood Partial Pressure O2 57.1L, Arterial Blood Total CO2 18.9L, Arterial Blood HCO3 17.6L, Arterial Blood Base Excess - 9.8L, Arterial Blood Oxygen Saturation 84.7L 07/07/17 11:33: Anion Gap 10, Glomerular Filtration Rate > 60.0, Blood Urea Nitrogen 16, Creatinine 0.73, Sodium Level 149H, Potassium Level 4.0, Chloride Level 115H, Carbon Dioxide Level 24, Calcium Level 7.3L 07/07/17 14:02: Lactic Acid Followup at 4 Hours 2.4*H CBC/BMP Laboratory Tests 07/07/17 06:17 Red Blood Count 4.23 L, Mean Corpuscular Volume 92.7, Mean Corpuscular Hemoglobin 31.2, Mean Corpuscular Hemoglobin Concent 33.7, Red Cell Distribution Width 14.0, Neutrophils (%) (Auto) 74.9 H, Lymphocytes (%) (Auto) 16.7 L, Monocytes (%) (Auto) 7.5 H, Eosinophils (%) (Auto) 0.6, Basophils (%) ( Auto) 0.1, Neutrophils # (Auto) 6.4, Lymphocytes # (Auto) 1.4 L, Monocytes # ( Auto) 0.6, Eosinophils # (Auto) 0.1, Basophils # (Auto) 0.0 07/07/17 11:33 Calcium Level 7.3 L Microbiology Microbiology 07/07/17 Blood Culture, Received Pending 07/07/17 Blood Culture, Received Pending 07/06/17 Blood Culture - Preliminary, Resulted No growth after 24 hours . All specim... 07/06/17 Blood Culture - Preliminary, Resulted No growth after 24 hours . All specim... 07/06/17 MRSA Screen, Resulted Pending 07/06/17 Respiratory Virus Panel (PCR) ([facility]) - Final, Resulted 07/06/17 Influenza Virus Type A Antigen - Final, Complete 07/06/17 Influenza Virus Type B Antigen - Final, Complete ROLF MONTGOMERY DO Jul 07, 2017 15:02
[2017-07-07] MEDS: LACOSAMIDE 10MG/ML 20ML VIAL (VIMPAT) (C9254) IV SCH (20:36)
[2017-07-07] MEDS: ATORVASTATIN 20 MG TAB PO SCH (20:37)
[2017-07-07] MEDS ORDERED: DIVALPROEX 500MG *ER* TAB PO SCH (21:00)
[2017-07-07] MEDS: VALPROATE SOD INJ 500 MG in D5W 50 ML IV SCH (21:12)
[2017-07-08] VITALS (12 sets, daily range): BP systolic 93–124; BP diastolic 50–76
[2017-07-08] MEDS: MEROPENEM INJ 1 GM in APPROPRIATE DILUENT 1 EA IV SCH ×3 (00:21→17:17)
[2017-07-08] MEDS: LR 1,000 ML IV SCH ×5 (00:21→17:24)
[2017-07-08] MEDS: VANCOMYCIN HCL 1,000 MG, VIAL MATE ADAPTER 1 EACH in D5W 250 ML IV SCH ×3 (02:09→17:24)
[2017-07-08] MEDS: SODIUM CHLORIDE HYPERTONIC 3% 15ML NEB SOL INH SCH ×3 (03:51→12:00)
[2017-07-08 06:49] LABS: BASO % 0.2 % (0.0-1.0); EOS # 0.2 10^3/uL (0.0-0.50); EOS % 2.7 % (0.0-3.0); IMMATURE GRANULOCYTE % 0.3 % (0-0); LYMPH # 0.9 10^3/uL (1.5-4.5); LYMPH % 14.6 % (24.0-44.0); MEAN CORPUSCULAR HEMOGLOBIN 31.7 pg (27.0-33.0); MEAN CORPUSCULAR HGB CONC 34.1 g/dl (32.0-36.5); MEAN CORPUSCULAR VOLUME 92.8 fl (80.0-96.0); MONO # 0.7 10^3/uL (0.0-0.8); MONO % 10.9 % (0.0-5.0); NEUTROPHILS # 4.3 10^3/uL (1.8-7.7); NEUTROPHILS % 71.3 % (36.0-66.0); RED CELL DISTRIBUTION WIDTH 13.9 % (11.5-14.5)
[2017-07-08 07:04] LABS: ADD MANUAL DIFFER NO; DIFF SLIDE NUMBER 53; PLATELET COUNT, AUTOMATED 81 10^3/uL (150-450)
[2017-07-08 07:05] LABS: IMMATURE PLATELET FRACTION % 6.6 % (0.0-10.9)
[2017-07-08 07:16] LABS: ANION GAP 5 MEQ/L (8-16); BLOOD UREA NITROGEN 8 MG/DL (7-18); CALCIUM LEVEL 7.8 MG/DL (8.5-10.1); CARBON DIOXIDE LEVEL 32 MEQ/L (21-32); CHLORIDE LEVEL 109 MEQ/L (98-107); CREATININE FOR GFR 0.42 MG/DL (0.70-1.30); GLOMERULAR FILTRATION RATE > 60.0 (>60); GLUCOSE, FASTING 64 MG/DL (70-105); POTASSIUM SERUM 3.3 MEQ/L (3.5-5.1); SODIUM LEVEL 146 MEQ/L (136-145)
[2017-07-08 08:55] LABS: MAGNESIUM LEVEL 1.4 MG/DL (1.8-2.4)
[2017-07-08] MEDS: ASPIRIN 81 MG ENTERIC TAB PO SCH (09:46)
[2017-07-08] MEDS: LACTOBACILLUS ACIDOPHILUS CAP (BACID) PO SCH ×2 (09:46→20:22)
[2017-07-08] MEDS: MULTIVITAMINS/MINERALS THERAP 1 TAB PO SCH (09:46)
[2017-07-08] MEDS: VITAMIN D 1,000 INTERNATIONAL UNITS TABLET PO SCH ×2 (09:46→20:23)
[2017-07-08] MEDS: OMEPRAZOLE 20 MG CAP PO SCH (09:46)
[2017-07-08] MEDS: LACOSAMIDE 10MG/ML 20ML VIAL (VIMPAT) (C9254) IV SCH ×2 (09:53→20:23)
[2017-07-08] MEDS: VALPROATE SOD INJ 500 MG in D5W 50 ML IV SCH ×2 (09:55→20:23)
[2017-07-08] MEDS ORDERED: KCL 10MEQ IN 100ML SWI (KRUN) 10 MEQ in APPROPRIATE DILUENT 1 EA IV ONE ×2 (11:00)
[2017-07-08] MEDS: MAG SULF 1GM/100ML (MAG RUN) 1 GM in APPROPRIATE DILUENT 1 EA IV SCH ×2 (11:00→12:00)
--- NOTE | 2017-07-08 13:53 | EEG ---
DATE OF PROCEDURE: 07/06/2017 REFERRING PHYSICIAN: Dr. Troy Pineda. DIAGNOSIS: Seizures. EEG NUMBER: [id number] HISTORY: The patient is a 46-year-old man with history of traumatic brain injury who was admitted at [facility] due to pneumonia and recurrent seizures. He is currently on Vimpat, Depakote, ceftriaxone, Zithromax, etc.. TECHNICAL DESCRIPTION: This digital EEG was recorded by 21 scalp, ear and two EKG electrodes and was reviewed in bipolar and referential montages following reformatting in 10 - 20 international electrode placement system. INTERPRETATION: The patient was noted to be in awake and drowsy states during this EEG. Resting awake background rhythm consisted of 6 - 7 Hertz theta activity. Stage I and II sleep were reviewed and showed slight attenuation in right frontal and central head region. Hyperventilation could not be performed. Photic stimulation remained unremarkable. EKG revealed normal sinus rhythm. Right frontal, central and left temporal spikes and sharp waves with no waves were noted during wakefulness and stage II sleep. No clinical or electrographic seizures were recorded. CONCLUSION: This EEG in awake, drowsy states, stage I and II sleep is abnormal due to presence of right frontal, central and left temporal epileptiform discharges consistent with focal cortical structural or functional abnormality with epileptic potential. In addition, mild slowing is likely consistent with mild encephalopathy due to multiple potential causes including postictal state. Clinical correlation is recommended.
--- NOTE | 2017-07-08 14:46 | IPN ---
DATE OF EXAM: 07/08/2017 SUBJECTIVE: The patient complains of belly pain and complains that he is hungry. He wants to eat. Otherwise, he does not have any other specific complaints. He was able to answer yes or no questions. When I say good morning, he does reply back to me. OBJECTIVE: Vital signs: Temperature 97.4, pulse 81, respiratory rate 14, blood pressure systolic 95/diastolic 60 with mean arterial pressure (MAP) of 72, oxygen saturation 97% on 2 liters nasal cannula. General: He is middle-aged, man, appears younger than stated age. HEENT: chronic dysconjugate gaze with dry mucous membranes. No elevation of central venous pressure (CVP). Cardiovascular exam: S1, S2. He is not tachycardic. Respiratory exam: He is actually quite clear with diminished breath sounds at the bases. Abdominal exam: Bowel sounds present. The abdomen is soft and nontender. Extremities: No clubbing or cyanosis. He has chronic contractures distally. LABORATORY STUDIES: WBC 6.0, hemoglobin 10.1, platelet count 81. Chemistry panel: Sodium 146, potassium 3.3, chloride 109, bicarbonate 32, BUN 8, creatinine 0.4, magnesium 1.4, lactic acid 0.6 this morning. Valproic acid level is currently pending. MICROBIOLOGY: Blood cultures are negative thus far. MRSA screen is negative. Respiratory PCR panel is negative. Influenza is negative. No new imaging. ASSESSMENT AND PLAN: This is a 46-year-old man who presented postictal after a breakthrough seizure and found to be in what is likely severe sepsis. PROBLEMS: 1. Breakthrough seizure likely secondary to septic picture. He had, had 1 weeks worth of progressive decline. Neurology's help is greatly appreciated. He is currently on Vimpat 200 mg IV twice a day and valproic 500 mg twice a day IV. 2. Severe sepsis. The patient did have hypothermia. He was tachycardic at his presentation. He does not seem to mount a typical immune response. However, he was hypotensive with lactic acidosis. He did not initially respond to IV fluids. His antibiotics have been broadened to vancomycin and meropenem. We continue to followup his cultures and we could likely narrow spectrum tomorrow. For the time being, he does appear to be significantly improved and hemodynamically stable. He does no longer require Levophed. He will continue with IV fluids. We will begin slowing down the rate. Should he remain hemodynamically stable, we could consider transferring him out of the medical intensive care unit as early as tomorrow. I suspect that his infection is related to aspiration events based on his CT findings. There is also concern that he may have had a traumatic Leal placement and had urinary obstruction. He did improve after placement of the Leal catheter; 400 mL of return. 3. Aspiration. He is more awake and alert today. We will request a repeat swallow evaluation and provide him with some diet and hopefully some oral medications. 4. Possible esophageal stricture. We will have gastroenterology consult when the patient is more clinically and hemodynamically stable for 24 hours. 5. Lactic acidosis, resolved. 6. Metabolic encephalopathy. The patient appears to be approaching his baseline mentation. 7. History of CVA. He will continue on aspirin and Plavix. 8. History of traumatic brain injury (TBI), chronic and stable, and this is likely the etiology for his seizure disorder. 9. Gastroesophageal reflux disease. The patient is on omeprazole. 10. Deep venous thrombosis (DVT) prophylaxis. Sequentials and thromboembolism deterrents (TEDs). No anticoagulation. 11. Thrombocytopenia likely element of dilution and related to sepsis. Continue to monitor and see if it improves as we begin to wean his IV fluids and his sepsis continues to improve. DISPOSITION: His overall prognosis remains guarded and long-term I discussed with patient and family services (PFS). The patient's family previously had requested DO NOT RESUSCITATE, DO NOT INTUBATE. We will work with PFS to see if we can arrange this while he is hospitalized. ABENA
[2017-07-08] MEDS: ATORVASTATIN 20 MG TAB PO SCH (20:22)
--- NOTE | 2017-07-08 20:39 | PHACANCOPD ---
PHARMACY VANCOMYCIN DOSING Pt Demographics Demographics Patient Age:46 , Weight:62.600 , Gender: male Adjusted Body Weight Date: 07/07/17, Adjusted Body Weight: Kg Vancomycin Vancomycin indication: RESPIRATORY INFECTION Vancomycin Target Ranges: 10-20 mcg/ml Vancomycin Load Y/N: Yes Load Dose Date Time Vancomycin Load Dose: 1500MG Date: 07/07 Time: 1000 Vancomycin Dose Date: 07/07/17. Current Vancomycin Dose: [1GM IV Q8H@10] Intermittent Dosing?: No Labs Micro Microbiology 07/07/17 Blood Culture - Preliminary, Resulted No growth after 24 hours . All specim... 07/07/17 Blood Culture - Preliminary, Resulted No growth after 24 hours . All specim... 07/06/17 Blood Culture - Preliminary, Resulted No Growth after 48 hours. All Specime... 07/06/17 Blood Culture - Preliminary, Resulted No Growth after 48 hours. All Specime... 07/06/17 MRSA Screen - Final, Complete 07/06/17 Respiratory Virus Panel (PCR) ([facility]) - Final, Complete 07/06/17 Influenza Virus Type A Antigen - Final, Complete 07/06/17 Influenza Virus Type B Antigen - Final, Complete Creatinine Clearance Date:07/07/17. Creatinine Clearance: . Assessment and Plan Maintaining Current Dose?: Yes Reason for dose change: No Dose Change Pharmacist Note Pharmacist Note 07/08/17: Trough that was scheduled to be drawn tonight prior to 5th dose at 1700 was not drawn. I have ordered for another trough to be drawn tonight, 07/09, @0100 via direct line draw to avoid disruption to the patient. We will continue to monitor and make dose adjustments if needed. Date: 07/07/17. Pharmacist note: Patient's antibiotics were switched from Ceftriaxone and Azithromycin to Meropenem and Vancomycin today for treatment of Pneumonia. His condition has deteriorated over the past 24 hours. His body temperature has dropped to 94.5, his blood pressure has dropped. He was transferred to ICU and placed on Norepinephrine drip. He was loaded with Vancomycin 1500mg, and continued on 1gm IV q8h for now. We will monitor his levels and make adjustments as necessary. RADHA JORDAN PHARMACY Jul 08, 2017 20:39
[2017-07-09] VITALS: BP 131/85
[2017-07-09] MEDS: LR 1,000 ML IV SCH (01:13)
[2017-07-09] MEDS: MEROPENEM INJ 1 GM in APPROPRIATE DILUENT 1 EA IV SCH ×3 (01:13→18:17)
--- NOTE | 2017-07-09 01:54 | PHACANCOPD ---
PHARMACY VANCOMYCIN DOSING Pt Demographics Demographics Patient Age:46 , Weight:62.600 , Gender: male Adjusted Body Weight Date: 07/07/17, Adjusted Body Weight: [62.6] Kgactual wt Vancomycin Vancomycin indication: RESPIRATORY INFECTION Vancomycin Target Ranges: 10-20 mcg/ml Vancomycin Load Y/N: Yes Load Dose Date Time Vancomycin Load Dose: 1500MG Date: 07/07 Time: 1000 Vancomycin Dose Date: 07/07/17. Current Vancomycin Dose: [1GM IV Q8H@10] Intermittent Dosing?: No Labs Micro Microbiology 07/07/17 Blood Culture - Preliminary, Resulted No growth after 24 hours . All specim... 07/07/17 Blood Culture - Preliminary, Resulted No growth after 24 hours . All specim... 07/06/17 Blood Culture - Preliminary, Resulted No Growth after 48 hours. All Specime... 07/06/17 Blood Culture - Preliminary, Resulted No Growth after 48 hours. All Specime... 07/06/17 MRSA Screen - Final, Complete 07/06/17 Respiratory Virus Panel (PCR) ([facility]) - Final, Complete 07/06/17 Influenza Virus Type A Antigen - Final, Complete 07/06/17 Influenza Virus Type B Antigen - Final, Complete Creatinine Clearance Date:07/07/17. Creatinine Clearance: . Assessment and Plan Maintaining Current Dose?: No Reason for dose change: Trough too high Pharmacist Note Pharmacist Note Date: 07/09/17. Pharmacist note:Vancomycin trough drawn07/09 @ 1:04 reported as 28.6.-held 0200 dose and will adjust schedule to 1 gram iv Q12H to begin @ 0800 today.-will continue to monitor 07/08/17: Trough that was scheduled to be drawn tonight prior to 5th dose at 1700 was not drawn. I have ordered for another trough to be drawn tonight, 07/09, @0100 via direct line draw to avoid disruption to the patient. We will continue to monitor and make dose adjustments if needed. Date: 07/07/17. Pharmacist note: Patient's antibiotics were switched from Ceftriaxone and Azithromycin to Meropenem and Vancomycin today for treatment of Pneumonia. His condition has deteriorated over the past 24 hours. His body temperature has dropped to 94.5, his blood pressure has dropped. He was transferred to ICU and placed on Norepinephrine drip. He was loaded with Vancomycin 1500mg, and continued on 1gm IV q8h for now. We will monitor his levels and make adjustments as necessary. HECTOR MAZA PHARMACY Jul 09, 2017 01:54
[2017-07-09 04:00] VITALS: BP 120/80
[2017-07-09 06:12] LABS: BASO % 0.1 % (0.0-1.0); EOS # 0.2 10^3/uL (0.0-0.50); EOS % 3.3 % (0.0-3.0); IMMATURE GRANULOCYTE % 0.3 % (0-0); LYMPH # 1.2 10^3/uL (1.5-4.5); LYMPH % 16.7 % (24.0-44.0); MEAN CORPUSCULAR HEMOGLOBIN 30.8 pg (27.0-33.0); MEAN CORPUSCULAR HGB CONC 34.2 g/dl (32.0-36.5); MEAN CORPUSCULAR VOLUME 89.9 fl (80.0-96.0); MONO # 0.8 10^3/uL (0.0-0.8); MONO % 11.8 % (0.0-5.0); NEUTROPHILS # 4.7 10^3/uL (1.8-7.7); NEUTROPHILS % 67.8 % (36.0-66.0); RED CELL DISTRIBUTION WIDTH 13.6 % (11.5-14.5); WHITE BLOOD COUNT 6.9 10^3/uL (4.0-10.0)
[2017-07-09] MEDS ORDERED: SODIUM CHLORIDE 0.9% INJ 10 ML SYR IV PRN (06:15)
[2017-07-09 06:16] LABS: PLATELET COUNT, AUTOMATED 77 10^3/uL (150-450)
[2017-07-09 06:38] LABS: ANION GAP 6 MEQ/L (8-16); BLOOD UREA NITROGEN 4 MG/DL (7-18); CALCIUM LEVEL 8.1 MG/DL (8.5-10.1); CARBON DIOXIDE LEVEL 32 MEQ/L (21-32); CHLORIDE LEVEL 108 MEQ/L (98-107); CREATININE FOR GFR 0.54 MG/DL (0.70-1.30); GLOMERULAR FILTRATION RATE > 60.0 (>60); GLUCOSE, FASTING 72 MG/DL (70-105); POTASSIUM SERUM 3.2 MEQ/L (3.5-5.1); SODIUM LEVEL 146 MEQ/L (136-145)
[2017-07-09 08:00] VITALS: BP 130/80
[2017-07-09] MEDS: VITAMIN D 1,000 INTERNATIONAL UNITS TABLET PO SCH ×2 (08:56→20:42)
[2017-07-09] MEDS: LACTOBACILLUS ACIDOPHILUS CAP (BACID) PO SCH ×2 (08:56→20:42)
[2017-07-09] MEDS: OMEPRAZOLE 20 MG CAP PO SCH (08:56)
[2017-07-09] MEDS: MULTIVITAMINS/MINERALS THERAP 1 TAB PO SCH (08:56)
[2017-07-09] MEDS: VALPROATE SOD INJ 500 MG in D5W 50 ML IV SCH (08:57)
[2017-07-09] MEDS: LACOSAMIDE 10MG/ML 20ML VIAL (VIMPAT) (C9254) IV SCH (09:00)
[2017-07-09] MEDS: ASPIRIN 81 MG ENTERIC TAB PO SCH (09:03)
[2017-07-09] MEDS ORDERED: VANCOMYCIN HCL 1,000 MG, VIAL MATE ADAPTER 1 EACH in D5W 250 ML IV SCH (10:00)
[2017-07-09 10:16] LABS: MAGNESIUM LEVEL 1.8 MG/DL (1.8-2.4)
[2017-07-09] MEDS ORDERED: POTASSIUM CHLORIDE 10 MEQ SR TABLET PO ONE (11:00)
[2017-07-09] MEDS ORDERED: MAG SULF 1GM/100ML (MAG RUN) 1 GM in APPROPRIATE DILUENT 1 EA IV ONE (11:00)
[2017-07-09] MEDS: SODIUM CHLORIDE 0.9% INJ 10 ML SYR IV SCH ×2 (14:00→22:00)
[2017-07-09 16:00] VITALS: BP 144/90
[2017-07-09] MEDS: ATORVASTATIN 20 MG TAB PO SCH (20:42)
[2017-07-09] MEDS: LACOSAMIDE 50 MG TAB (VIMPAT) PO SCH (20:42)
[2017-07-09] MEDS: DIVALPROEX SPRINKLE 125 MG CAP PO SCH (20:47)
[2017-07-09 22:00] VITALS: BP 141/92
[2017-07-10] VITALS (8 sets, daily range): BP systolic 114–147; BP diastolic 72–88
[2017-07-10] MEDS: MEROPENEM INJ 1 GM in APPROPRIATE DILUENT 1 EA IV SCH (01:17)
[2017-07-10 02:10] LABS: ORGANISM ID Not indicated. (.); SPECIMEN SOURCE Urine (.)
[2017-07-10 06:26] LABS: BASO % 0.2 % (0.0-1.0); EOS # 0.3 10^3/uL (0.0-0.50); EOS % 4.4 % (0.0-3.0); IMMATURE GRANULOCYTE % 0.3 % (0-0); LYMPH # 1.4 10^3/uL (1.5-4.5); LYMPH % 23.5 % (24.0-44.0); MEAN CORPUSCULAR HEMOGLOBIN 31.2 pg (27.0-33.0); MEAN CORPUSCULAR HGB CONC 34.8 g/dl (32.0-36.5); MEAN CORPUSCULAR VOLUME 89.8 fl (80.0-96.0); MONO # 0.9 10^3/uL (0.0-0.8); MONO % 15.2 % (0.0-5.0); NEUTROPHILS # 3.4 10^3/uL (1.8-7.7); NEUTROPHILS % 56.4 % (36.0-66.0); RED CELL DISTRIBUTION WIDTH 13.4 % (11.5-14.5)
[2017-07-10 06:28] LABS: PLATELET COUNT, AUTOMATED 84 10^3/uL (150-450)
[2017-07-10 06:48] LABS: ANION GAP 5 MEQ/L (8-16); BLOOD UREA NITROGEN 7 MG/DL (7-18); CALCIUM LEVEL 8.4 MG/DL (8.5-10.1); CARBON DIOXIDE LEVEL 32 MEQ/L (21-32); CHLORIDE LEVEL 108 MEQ/L (98-107); CREATININE FOR GFR 0.54 MG/DL (0.70-1.30); GLOMERULAR FILTRATION RATE > 60.0 (>60); GLUCOSE, FASTING 68 MG/DL (70-105); POTASSIUM SERUM 3.5 MEQ/L (3.5-5.1); SODIUM LEVEL 145 MEQ/L (136-145)
[2017-07-10] MEDS ORDERED: PROPOFOL 200 MG/20 ML VIAL As Ordered ONE (08:12)
[2017-07-10] MEDS ORDERED: LIDOCAINE 2% INJ 100 MG/5 ML SDV (FOR ANES.) As Ordered ONE (08:12)
[2017-07-10] MEDS ORDERED: MIDAZOLAM INJ 2 MG/2 ML VIAL (J2250) As Ordered ONE (08:18)
[2017-07-10] MEDS ORDERED: fentaNYL 100 MCG/2 ML INJECTION (J3010) As Ordered ONE (08:18)
[2017-07-10] MEDS ORDERED: NEOSTIGMINE 10 MG/10 ML VIAL (J2710) As Ordered ONE (08:54)
[2017-07-10] MEDS ORDERED: GLYCOPYRROLATE INJ 0.2 MG/ML 2 ML VIAL As Ordered ONE (08:54)
[2017-07-10] MEDS ORDERED: ePHEDrine SULFATE 25 MG/5 ML(5MG/ML) SYRINGE As Ordered ONE (08:54)
[2017-07-10] MEDS ORDERED: ONDANSETRON 4MG/2ML VIAL (J2405) As Ordered ONE (08:54)
[2017-07-10] MEDS ORDERED: PHENYLephrine HCL 500 MCG/5 ML (100MCG/ML) SYRINGE (J2370) As Ordered ONE (08:54)
--- NOTE | 2017-07-10 09:08 | ROOR ---
Patient Name: Bari Bush Procedure Date: 07/10/2017 8:33 AM Date of : 1970 Age: 46 Room: Main OR Gender: Male Note Status: Finalized Procedure: Upper GI endoscopy Indications: Exclusion of esophageal stricture Providers: Jeoy Fair MD Referring MD: Huy Callahan NP Requesting Provider: Medicines: General Anesthesia Complications: No immediate complications. Procedure: Pre-Anesthesia Assessment: - The heart rate, respiratory rate, oxygen saturations, blood pressure, adequacy of pulmonary ventilation, and response to care were monitored throughout the procedure. The Endoscope was introduced through the mouth, and advanced to the second part of duodenum. The upper GI endoscopy was accomplished without difficulty. The patient tolerated the procedure well. Findings: The Z-line was regular and was found 40 cm from the incisors. There was evidence of a closed previous gastrostomy present on the anterior wall of the stomach. This was characterized by edema, erosion and ulceration. The exam was otherwise without abnormality. The exam of the duodenum was otherwise normal. Impression: - Z-line regular, 40 cm from the incisors. - Closed previous gastrostomy present characterized by edema, erosion and ulceration. - The examination was otherwise normal. - No specimens collected. - The examination was otherwise normal. Recommendation: - [facility]. - Continue present medications. - The findings and recommendations were discussed with the designated responsible adult. Joey Fair MD Joey Fair MD 07/10/2017 9:08:06 AM This report has been signed electronically. Number of Addenda: 0 Note Initiated On: 07/10/2017 8:33 AM Estimated Blood Loss: Estimated blood loss: none.
[2017-07-10] MEDS ORDERED: NALOXONE INJ 0.4 MG/1 ML VIAL (J2310) As Ordered ONE (09:12)
[2017-07-10] MEDS ORDERED: POTASSIUM CHLORIDE 10 MEQ SR TABLET PO ONE (10:00)
[2017-07-10] MEDS ORDERED: ONDANSETRON 4MG/2ML VIAL (J2405) IV PRN (10:15)
[2017-07-10] MEDS ORDERED: LR 1,000 ML IV SCH (10:15)
--- NOTE | 2017-07-10 10:26 | IPN ---
DATE: 07/10/2017 This morning, the patient tells me that he is feeling hungry. He is able to wave and says "good morning" to me as I entered the room. I asked him if he was in any pain and he says no. OBJECTIVE: Vital signs: Temperature 97.4, pulse 74, respiratory rate 15, blood pressure 131/77, oxygen saturation 92% on room air. General: He is a man sitting up in bed and gives me a thumbs up. He appears at baseline and in no acute distress. HEENT: Chronic dysconjugate gaze. Moist mucous membranes. No elevation of central venous pressure (CVP). Cardiovascular exam: S1, S2, regular. Respiratory exam: Fairly clear. Abdominal exam: Benign. Extremities: No clubbing, cyanosis or edema. He has chronic contractures. LABORATORY STUDIES: WBC 6.0, hemoglobin 11.3, platelet count 84, up from 77. Chemistry panel: Sodium 145, potassium 3.5 and repleted, chloride 108, bicarbonate 32, BUN 7, creatinine 0.5. Microbiology: Blood cultures are negative at 72 hours. Methicillin resistant Staphylococcus aureus (MRSA) screen is negative. Influenza swab is negative. No new imaging. EEG revealed stage 1 and 2 sleep, is abnormal due to the presence of right frontal, central and left epileptiform discharge consistent with focal, cortical , structural, or functional abnormality with epileptic potential. In addition, mild slowing, likely consistent with mild encephalopathy due to multiple potential causes, including postictal state. ASSESSMENT AND PLAN: This is a 46-year-old man who presented after breakthrough seizure, found to be in severe sepsis secondary to aspiration. PROBLEMS: 1. Breakthrough seizure likely secondary to septic picture. He had been declining for the previous week. Neurology's help is greatly appreciated. He is currently on Vimpat and Depakote. He has been transitioned to oral. He is tolerating them quite well. He has had no further seizure activity while in the hospital. 2. Severe sepsis secondary to aspiration pneumonia. He did have hypothermia and tachycardia. He was hypotensive with lactic acidosis. He responded to IV fluids. His antibiotics at this time will be narrowed to clindamycin 50 mg three times a day. He is no longer requiring Levophed or IV fluids. 3. Aspiration. There was concern for esophageal stricture. I have contacted Dr. Fair of gastroenterology, who will perform an esophagogastroduodenoscopy (EGD) this morning to evaluate his esophagus. For the time being, speech therapy has recommended a pureed diet, which is tolerating well. 4. Lactic acidosis, resolved. 5. Metabolic encephalopathy, resolved. The patient is at his baseline mentation. Likely related to sepsis and postictal state. 6. History of CVA. Continue on aspirin and Plavix. 7. History of traumatic brain injury (TBI). He is at his baseline. 8. Gastroesophageal reflux disease. He is on omeprazole. 9. Deep venous thrombosis (DVT) prophylaxis. Sequentials and thromboembolism deterrents (TEDs). 10. Thrombocytopenia. Likely element of dilutional and related to sepsis. IV fluids have been stopped. Sepsis is resolving. His platelets are improving. We will continue to monitor. DISPOSITION: I suspect that he may be able to be discharged home within the next 24 to 48 hours. MTDD
[2017-07-10] MEDS: OMEPRAZOLE 20 MG CAP PO SCH (12:06)
[2017-07-10] MEDS: LACTOBACILLUS ACIDOPHILUS CAP (BACID) PO SCH ×2 (12:06→20:52)
[2017-07-10] MEDS: LACOSAMIDE 50 MG TAB (VIMPAT) PO SCH ×2 (12:07→20:52)
[2017-07-10] MEDS: VITAMIN D 1,000 INTERNATIONAL UNITS TABLET PO SCH ×2 (12:07→20:53)
[2017-07-10] MEDS: ASPIRIN 81 MG ENTERIC TAB PO SCH (12:07)
[2017-07-10] MEDS: DIVALPROEX SPRINKLE 125 MG CAP PO SCH ×2 (12:07→20:53)
[2017-07-10] MEDS: MULTIVITAMINS/MINERALS THERAP 1 TAB PO SCH (12:08)
[2017-07-10] MEDS: CLINDAMYCIN 150 MG CAP PO SCH ×3 (12:12→20:53)
[2017-07-10] MEDS: ATORVASTATIN 20 MG TAB PO SCH (20:53)
[2017-07-11 06:00] VITALS: BP 106/58
[2017-07-11 06:49] LABS: BASO % 0.2 % (0.0-1.0); EOS # 0.3 10^3/uL (0.0-0.50); EOS % 5.7 % (0.0-3.0); IMMATURE GRANULOCYTE % 0.4 % (0-0); LYMPH # 1.3 10^3/uL (1.5-4.5); LYMPH % 22.6 % (24.0-44.0); MEAN CORPUSCULAR HEMOGLOBIN 31.4 pg (27.0-33.0); MEAN CORPUSCULAR HGB CONC 34.4 g/dl (32.0-36.5); MEAN CORPUSCULAR VOLUME 91.3 fl (80.0-96.0); MONO # 0.7 10^3/uL (0.0-0.8); MONO % 12.7 % (0.0-5.0); NEUTROPHILS # 3.3 10^3/uL (1.8-7.7); NEUTROPHILS % 58.4 % (36.0-66.0); RED CELL DISTRIBUTION WIDTH 13.5 % (11.5-14.5); WHITE BLOOD COUNT 5.6 10^3/uL (4.0-10.0)
[2017-07-11 06:56] LABS: PLATELET COUNT, AUTOMATED 92 10^3/uL (150-450)
[2017-07-11 07:08] LABS: ANION GAP 7 MEQ/L (8-16); BLOOD UREA NITROGEN 11 MG/DL (7-18); CARBON DIOXIDE LEVEL 30 MEQ/L (21-32); CHLORIDE LEVEL 107 MEQ/L (98-107); GLOMERULAR FILTRATION RATE > 60.0 (>60); GLUCOSE, FASTING 63 MG/DL (70-105); POTASSIUM SERUM 4.4 MEQ/L (3.5-5.1); SODIUM LEVEL 144 MEQ/L (136-145)
[2017-07-11] MEDS ORDERED: CLEO150C PO ×2 (09:49→13:35)
[2017-07-11] MEDS ORDERED: DEPA125C PO (09:49)
[2017-07-11] MEDS: DIVALPROEX SPRINKLE 125 MG CAP PO SCH (10:02)
[2017-07-11] MEDS: CLINDAMYCIN 150 MG CAP PO SCH (10:03)
[2017-07-11] MEDS: LACOSAMIDE 50 MG TAB (VIMPAT) PO SCH (10:03)
[2017-07-11] MEDS: ASPIRIN 81 MG ENTERIC TAB PO SCH (10:03)
[2017-07-11] MEDS: LACTOBACILLUS ACIDOPHILUS CAP (BACID) PO SCH (10:07)
[2017-07-11] MEDS: OMEPRAZOLE 20 MG CAP PO SCH (10:07)
[2017-07-11] MEDS: VITAMIN D 1,000 INTERNATIONAL UNITS TABLET PO SCH (10:07)
[2017-07-11] MEDS: MULTIVITAMINS/MINERALS THERAP 1 TAB PO SCH (10:08)
--- NOTE | 2017-07-12 13:58 | IPN ---
DATE OF EXAM: 07/09/2017 SUBJECTIVE: Patient says good morning. He tells me he is hungry. He otherwise does not have any other complaints. He is awake and alert and pulls my name badge as I greet him into the room. OBJECTIVE: Vital Signs: Temperature 96.8, pulse 92, respiratory rate 18, blood pressure 130/80, oxygen saturation 95% on room air. General: He is a disabled, middle-aged man, sitting up in bed. Appears younger than stated age. He is in no distress. He is accompanied by a young clinic administrator. HEENT: Conjugate gaze. Moist mucous membranes. No elevation of central venous pressure (CVP). Cardiovascular Exam: S1, S2, regular. He is not tachycardic. Respiratory Exam: Is clear. Abdominal Exam: Benign. Extremities: No clubbing, cyanosis, or edema. He has chronic contractures. LABORATORY STUDIES: WBC 6.9, hemoglobin 10.4, platelet count of 77. Chemistry panel: Sodium 142, potassium 3.2, chloride 108, bicarbonate 32, BUN 4, creatinine (cut off). Toxicology: The patient did have an elevated vancomycin level of 28.6 and INR 0.93. Microbiology: Blood cultures are negative after 72 hours. Influenza swab is negative. MRSA screen and respiratory PCR panel are both negative. No new imaging. ASSESSMENT AND PLAN: This is a 46-year-old man who presented postictal after breakthrough seizure, found to be in likely severe sepsis secondary to aspiration pneumonia. PROBLEMS: 1. Breakthrough seizure, likely secondary to septic picture. Dr. Escalante's help has been greatly appreciated. He had been declining for the previous week. He is currently on Vimpat 200 IV twice a day and valproic 500 mg twice a day. He likely will be transitioned to oral as he in (cut off). 2. Severe sepsis. The patient did have hypothermia, and he was initially tachycardic on his presentation. He did have an elevated lactic acid, which has improved. He was briefly on Levophed. At this time, he is hemodynamically stable. He has been on vancomycin and meropenem. At this time, I will discontinue vancomycin as methicillin-resistant Staphylococcus aureus (MRSA) screen is negative. Cultures have been negative. He will be continued with meropenem and transferred to the medical/surgical floor. Remove his Leal catheter and triple lumen. 3. Aspiration. He is more awake. He has had as well as speech and swallow evaluation, and they have allowed a pureed diet. However, his CT did have concerns for esophageal stricture and, as such, I will ask Dr. Fair to see if he can complete an esophagogastroduodenoscopy (EGD). He has told me that he is a possible add-on for tomorrow and will see the patient in consultation. 4. Lactic acidosis, resolved. 5. Metabolic encephalopathy. The patient is at his baseline mentation. 6. History of CVA. Continue on aspirin and Plavix. 7. History of traumatic brain injury (TBI), chronic and stable. He has a seizure disorder related to this. 8. Gastroesophageal reflux disease. He is on omeprazole. 9. Deep venous thrombosis (DVT) prophylaxis. Sequentials and thromboembolism deterrents (TEDs). 10. Thrombocytopenia, likely dilutional and related to sepsis. Will continue to monitor. His sepsis seemed to be resolved. I would ideally like to see his platelets continue to trend upward. Should they not, could consider further workup. DISPOSITION: The patient had previously been DO NOT RESUSCITATE/DO NOT INTUBATE per family but, as he is disabled, this process was unable to be completed and this was nullified. I have completed paperwork and am working with patient and family services (PFS) to see if we can arrange this for the patient and family during this hospitalization.
--- NOTE | 2017-07-12 19:18 | DSES ---
DATE OF ADMISSION: 07/06/2017 DATE OF DISCHARGE: 07/11/2017 DISCHARGE DIAGNOSIS: Refractory septic shock, secondary to aspiration pneumonia. SECONDARY DIAGNOSES: 1. Seizure. 2. Lactic acidosis. 3. Metabolic encephalopathy. 4. History of a CVA. 5. History of traumatic brain injury (TBI). 6. Gastroesophageal reflux disease. 7. Thrombocytopenia. HOSPITAL COURSE: The patient is a 46-year-old man who initially presented after presentation with a breakthrough seizure. He had reportedly been having a decline over the last several days and had been treated with ciprofloxacin for a possible urinary tract infection (UTI). However, his symptoms did not improve, and he did have a seizure, which was witnessed at home. He was brought in and was found to be postictal. However, shortly thereafter, he did continue to decline and there was significant concern for aspiration pneumonia with potential esophageal stricture. He was treated with broad-spectrum antibiotics and placed on the medical intensive care unit and he was briefly on pressors while he initially did not respond to fluid. However, he was quite hypothermic and tachycardic and became quite thrombocytopenic, however, these all did resolve with treatment for his infection. There was a thought that his breakthrough seizure may have been related to ciprofloxacin use, lowering his seizure threshold. He was seen in consultation by Dr. Escalante of neurology, as well as Dr. Fair of gastroenterology. Once the patient was hemodynamically stabilized and he had improved back to his baseline, an upper endoscopy was completed, which did not reveal any abnormalities or strictures to the distal esophagus. SUBJECTIVE: This morning, the patient can say "good morning." He waves to me, he is able to give me a thumbs up and nod yes or no to basic questions. OBJECTIVE: VITAL SIGNS: Temperature 97.9, pulse 87, respiratory rate 18, blood pressure 106/58, oxygen saturation 92% on room air. GENERAL: He is a pleasant man, sitting up, awake. He gives me a thumbs up and does not appear to be in any acute distress. HEENT: Chronic disconjugate gaze. Moist mucous membranes. No elevation in his central venous pressure (CVP). CARDIOVASCULAR EXAM: S1, S2, regular. RESPIRATORY EXAM: Clear. ABDOMINAL EXAM: Benign. EXTREMITIES: No clubbing, cyanosis, or edema. LABORATORY STUDIES: WBC 5.6, hemoglobin 11.2, platelet count 92, up from 84. Chemistry panel: Sodium 144, potassium 4.4, chloride 107, bicarbonate 30, BUN 11. A valproic acid level this morning is 21.2. All of his blood cultures, methicillin-resistant Staphylococcus aureus (MRSA) screens, and influenza screens were all negative. IMAGING: The patient did have a CT scan of his chest on 07/07/2017, which revealed left lower lobe infiltrate, increased in size, new right lower lobe infiltrate, esophagus is air filled and distended, compatible with a stricture of the distal esophagus. He also had an upper endoscopy by Dr. Fair, which revealed a closed previous gastrostomy present, characterized by edema, erosion, and ulceration. ASSESSMENT AND PLAN: This is a 46-year-old man who was brought to the hospital after a breakthrough seizure, found to be in severe sepsis related to aspiration pneumonia. 1. Breakthrough seizures, likely related to his aspirations, however there was concern for potentially ciprofloxacin decreasing his seizure threshold, and as such, this has been added to his allergy list. He is continued on Vimpat. Depakote Sprinkles have been added as per neurology, whose help has been greatly appreciated. He has had no seizure activity while in hospital. He did have an EEG, which did not provide significant new information. 2. Severe sepsis, secondary to aspiration pneumonia. He did have hypothermia and tachycardia with lactic acidosis. He did not initially respond to IV fluids and required IV Levophed as sepsis had not resolved. He is stabilized and back to his baseline. He has been transitioned to oral antibiotics with clindamycin, which he will take for an additional 3 more days to ensure that he has completed a good 7 day course. 3. Thrombocytopenia, likely related to fluid resuscitation and sepsis. This is improving. 4. Metabolic encephalopathy. He was lethargic during his episode of severe sepsis. This has resolved and he is back to his baseline. 5. History of a CVA. He is on Plavix and aspirin. 6. Lactic acidosis, resolved. 7. History of traumatic brain injury (TBI). He is back to his baseline. 8. Gastroesophageal reflux disease. He is on omeprazole. 9. Deep venous thrombosis (DVT) prophylaxis. Sequentials and thromboembolism deterrents (TEDs). DISPOSITION: The patient is medically cleared for discharge home at this time to the care of his caregiver and his brother. The Medical Orders for Life-Sustaining Treatment (MOLST) form application was initiated through patient and family services (PFS), whose help has been greatly appreciated. The patient is to followup with his primary care provider (PCP) in 7 days, neurology within 2 weeks. His activity is as prior to admission. His diet is pureed. He is to return to the emergency room (ER) if symptoms worsen. MEDICATIONS: At the time of discharge: - clindamycin 450 mg three times a day - Depakote Sprinkles 500 mg by mouth twice a day - aspirin 81 mg daily - atorvastatin 20 mg nightly - bisacodyl 10 mg daily as needed for constipation - vitamin D 1000 units twice a day - Vimpat 200 mg twice a day - multivitamin one tablet daily - omeprazole 40 mg daily - promethazine 25 mg every 6 hours as needed for nausea Greater than 30 minutes spent organizing disposition.
== END 2017-07-11 14:30 | disposition home or self-care (01) | DRG 871 ==
LOC: M ED 08:36 → EDBD 08:36 → M ED INP 12:30 → M PCU 19:59 → M ICU 07-07 10:05 → M MS5PR 07-09 15:51
PROVIDERS: ADMIT General Practice; ATTEND Internal Medicine
PROC: 02HV33Z Insertion of Infusion Device into Superior Vena Cava, Percutaneous Approach (ICD-10-PCS; principal; 2017-07-07)
PROC: 0DJ08ZZ Inspection of Upper Intestinal Tract, Via Natural or Artificial Opening Endoscopic (ICD-10-PCS; 2017-07-10)
DX: A41.9 Sepsis, unspecified organism (principal); J69.0 Pneumonitis due to inhalation of food and vomit; G93.41 Metabolic encephalopathy; R65.21 Severe sepsis with septic shock; E87.2 Acidosis; G40.909 Epilepsy, unspecified, not intractable, without status epilepticus; R68.0 Hypothermia, not associated with low environmental temperature; K21.9 Gastro-esophageal reflux disease without esophagitis; D69.6 Thrombocytopenia, unspecified; Z86.73 Personal history of transient ischemic attack (TIA), and cerebral infarction without residual deficits; Z79.82 Long term (current) use of aspirin; Z79.899 Other long term (current) drug therapy; E55.9 Vitamin D deficiency, unspecified; Z88.0 Allergy status to penicillin; Z88.8 Allergy status to other drugs, medicaments and biological substances

== ENCOUNTER → 2018-04-27 | Outpatient (CLI) | payer MEDICARE, MEDICAID ==
[2018-04-27 10:19] LABS: BASO % 0.2 % (0.0-1.0); EOS # 0.2 10^3/uL (0.0-0.50); EOS % 4.3 % (0.0-3.0); HEMATOCRIT 44.6 % (42.0-52.0); HEMOGLOBIN 15.4 g/dl (13.5-17.5); IMMATURE GRANULOCYTE % 0.2 % (0-3.0); LYMPH # 1.1 10^3/uL (1.5-4.5); MEAN CORPUSCULAR HEMOGLOBIN 31.8 pg (27.0-33.0); MEAN CORPUSCULAR HGB CONC 34.5 g/dl (32.0-36.5); MONO # 0.6 10^3/uL (0.0-0.8); MONO % 10.2 % (0.0-5.0); NEUTROPHILS # 3.5 10^3/uL (1.8-7.7); NEUTROPHILS % 65.1 % (36.0-66.0); PLATELET COUNT, AUTOMATED 174 10^3/uL (150-450); RED BLOOD COUNT 4.85 10^6/uL (4.30-6.10); RED CELL DISTRIBUTION WIDTH 11.9 % (11.5-14.5); WHITE BLOOD COUNT 5.4 10^3/uL (4.0-10.0)
[2018-04-27 10:48] LABS: ALBUMIN 3.9 GM/DL (3.2-5.2); ALBUMIN/GLOBULIN RATIO 1.03 (1.00-1.93); ALKALINE PHOSPHATASE 71 U/L (45-117); ALT/SGPT 37 U/L (12-78); ANION GAP 5 MEQ/L (8-16); AST/SGOT 21 U/L (7-37); BILIRUBIN,TOTAL 0.5 MG/DL (0.2-1.0); BLOOD UREA NITROGEN 9 MG/DL (7-18); CALCIUM LEVEL 9.3 MG/DL (8.5-10.1); CARBON DIOXIDE LEVEL 33 MEQ/L (21-32); CHLORIDE LEVEL 103 MEQ/L (98-107); CHOLESTEROL LEVEL 109 MG/DL (<200); CHOLESTEROL RISK RATIO 1.816 (<5); CREATININE FOR GFR 0.58 MG/DL (0.70-1.30); GLOMERULAR FILTRATION RATE > 60.0 (>60); GLUCOSE, FASTING 77 MG/DL (70-100); HDL CHOLESTEROL 60 MG/DL (>40); LDL CHOLESTEROL 40 MG/DL (<100); NON-HDL-C 49 MG/DL; POTASSIUM SERUM 4.2 MEQ/L (3.5-5.1); SODIUM LEVEL 141 MEQ/L (136-145); TOTAL PROTEIN 7.7 GM/DL (6.4-8.2); TRIGLYCERIDES LEVEL 44 MG/DL (<150)
== END ==
LOC: M LAB 09:06
DX: G40.319 Generalized idiopathic epilepsy and epileptic syndromes, intractable, without status epilepticus (principal); E55.9 Vitamin D deficiency, unspecified; E78.5 Hyperlipidemia, unspecified
CPT/HCPCS: 80053

== ENCOUNTER → 2018-05-09 | Outpatient (CLI) | payer MEDICARE, MEDICAID | LOC: M PT 14:04 | DX: G80.4 Ataxic cerebral palsy (principal) | CPT/HCPCS: 97162 ==

== ENCOUNTER → 2018-05-12 | Outpatient (CLI) | payer MEDICARE, MEDICAID | LOC: M RAD 15:45 | DX: G80.4 Ataxic cerebral palsy (principal) | CPT/HCPCS: 71046 ==

== ENCOUNTER 2018-08-26 16:01 | Emergency (ER) | payer MEDICARE, MEDICAID ==
[~2018-08-26] VITALS: Ht 172.7 cm; Wt 61.4 kg
[~2018-08-26 16:01] MED LIST changes: +CLEO150C PO; +DEPA1CAP PO; +OMEP40CA2 PO; -PROM25TA PO; +PROM25TA12 PO; -VITA1CAP40 PO; +VITA50005 PO; +[UNRECOGNIZED DRUG - CODE] TOP; -[UNRECOGNIZED DRUG - CODE] TOP
[2018-08-26] MEDS ORDERED: NS 1,000 ML IV ONE (17:45)
[2018-08-26 18:22] LABS: BASO % 0.2 % (0.0-1.0); EOS # 0.2 10^3/uL (0.0-0.50); EOS % 3.7 % (0.0-3.0); HEMATOCRIT 40.3 % (42.0-52.0); HEMOGLOBIN 13.7 g/dl (13.5-17.5); LYMPH # 1.2 10^3/uL (1.5-4.5); LYMPH % 22.2 % (24.0-44.0); MEAN CORPUSCULAR HEMOGLOBIN 32.2 pg (27.0-33.0); MEAN CORPUSCULAR VOLUME 94.6 fl (80.0-96.0); MONO # 0.7 10^3/uL (0.0-0.8); MONO % 12.9 % (0.0-5.0); NEUTROPHILS # 3.3 10^3/uL (1.8-7.7); NEUTROPHILS % 60.8 % (36.0-66.0); PLATELET COUNT, AUTOMATED 120 10^3/uL (150-450); RED BLOOD COUNT 4.26 10^6/uL (4.30-6.10); WHITE BLOOD COUNT 5.4 10^3/uL (4.0-10.0)
[2018-08-26 18:52] LABS: ALBUMIN 3.3 GM/DL (3.2-5.2); ALT/SGPT 58 U/L (12-78); BILIRUBIN,DIRECT 0.1 MG/DL (0.0-0.2); BILIRUBIN,TOTAL 0.3 MG/DL (0.2-1.0); BLOOD UREA NITROGEN 23 MG/DL (7-18); CALCIUM LEVEL 9.3 MG/DL (8.5-10.1); CARBON DIOXIDE LEVEL 31 MEQ/L (21-32); CHLORIDE LEVEL 102 MEQ/L (98-107); CREATININE FOR GFR 0.56 MG/DL (0.70-1.30); GLOMERULAR FILTRATION RATE > 60.0 (>60); GLUCOSE, FASTING 77 MG/DL (70-100); POTASSIUM SERUM 4.6 MEQ/L (3.5-5.1); SODIUM LEVEL 138 MEQ/L (136-145); TOTAL PROTEIN 7.3 GM/DL (6.4-8.2)
[2018-08-26] MEDS ORDERED: BACT800T5 PO (19:20)
[2018-08-26] MEDS ORDERED: NEOSPORIN OINT 0.9 GM PKT (FLOOR STOCK) TOP ONE (19:30)
[2018-08-26 19:43] VITALS: BP 136/79
== END 2018-08-26 19:44 | disposition home or self-care (01) ==
LOC: M ED 16:01
DX: E86.0 Dehydration (principal); S60.415A Abrasion of left ring finger, initial encounter; W26.8XXA Contact with other sharp object(s), not elsewhere classified, initial encounter; Y92.89 Other specified places as the place of occurrence of the external cause; R10.2 Pelvic and perineal pain; F79 Unspecified intellectual disabilities; Z86.73 Personal history of transient ischemic attack (TIA), and cerebral infarction without residual deficits; E78.5 Hyperlipidemia, unspecified; Z88.0 Allergy status to penicillin; Z88.1 Allergy status to other antibiotic agents; Z88.8 Allergy status to other drugs, medicaments and biological substances; Z91.018 Allergy to other foods; Z79.899 Other long term (current) drug therapy; Z79.82 Long term (current) use of aspirin
CPT/HCPCS: 80048; 80076; 81001; 83605; 85025; 87040; 96360; 99284; P9612

== ENCOUNTER 2018-08-30 18:41 | Emergency (ER) | payer MEDICARE, MEDICAID ==
[~2018-08-30] VITALS: Ht 172.7 cm; Wt 61.4 kg
[2018-08-30] MEDS ORDERED: SULF1POW (18:53)
[2018-08-30] MEDS ORDERED: NITR100C2 (18:53)
[2018-08-30 19:47] LABS: BASO % 0.1 % (0.0-1.0); EOS # 0.3 10^3/uL (0.0-0.50); EOS % 3.4 % (0.0-3.0); HEMATOCRIT 41.2 % (42.0-52.0); HEMOGLOBIN 14.1 g/dl (13.5-17.5); LYMPH # 1.4 10^3/uL (1.5-4.5); LYMPH % 19.6 % (24.0-44.0); MEAN CORPUSCULAR HGB CONC 34.2 g/dl (32.0-36.5); MEAN CORPUSCULAR VOLUME 93.6 fl (80.0-96.0); MONO # 0.7 10^3/uL (0.0-0.8); MONO % 9.8 % (0.0-5.0); NEUTROPHILS # 4.9 10^3/uL (1.8-7.7); NEUTROPHILS % 66.7 % (36.0-66.0); PLATELET COUNT, AUTOMATED 130 10^3/uL (150-450); WHITE BLOOD COUNT 7.3 10^3/uL (4.0-10.0)
[2018-08-30 19:52] LABS: APPEARANCE, URINE CLEAR (CLEAR); BACTERIA, URINE AUTO NEGATIVE (NEGATIVE); BILIRUBIN, URINE AUTO NEGATIVE (NEGATIVE); BLOOD, URINE BLOOD NEGATIVE (NEGATIVE); COLOR, URINE YELLOW (YELLOW); GLUCOSE, URINE (UA) AUTO NEGATIVE (NEGATIVE); KETONE, URINE AUTO NEGATIVE (NEGATIVE); LEUKOCYTE ESTERASE, URINE AUTO NEGATIVE (NEGATIVE); MUCUS, URINE SMALL (NEGATIVE); NITRITE, URINE AUTO NEGATIVE (NEGATIVE); PROTEIN, URINE AUTO NEGATIVE (NEGATIVE); RBC, URINE AUTO 2 /HPF (0-3); SPECIFIC GRAVITY URINE AUTO 1.016 (1.002-1.035); SQUAMOUS EPITHELIAL CELL UR AU 0 /HPF (0-6); WBC, URINE AUTO 1 /HPF (0-3)
[2018-08-30 19:54] LABS: ALBUMIN 3.7 GM/DL (3.2-5.2); ALT/SGPT 50 U/L (12-78); BILIRUBIN,DIRECT 0.1 MG/DL (0.0-0.2); BILIRUBIN,TOTAL 0.3 MG/DL (0.2-1.0); BLOOD UREA NITROGEN 24 MG/DL (7-18); CALCIUM LEVEL 9.5 MG/DL (8.5-10.1); CARBON DIOXIDE LEVEL 25 MEQ/L (21-32); CHLORIDE LEVEL 100 MEQ/L (98-107); CREATININE FOR GFR 1.06 MG/DL (0.70-1.30); GLOMERULAR FILTRATION RATE > 60.0 (>60); GLUCOSE, FASTING 112 MG/DL (70-100); POTASSIUM SERUM 4.5 MEQ/L (3.5-5.1); SODIUM LEVEL 134 MEQ/L (136-145); TOTAL PROTEIN 8.3 GM/DL (6.4-8.2)
[2018-08-30 20:10] LABS: ABG HCO3 28.2 MEQ/L (22.0-26.0); ABG O2 SATURATION 97.2 % (95.0-99.0); ABG PARTIAL PRESSURE CO2 55.4 mmHg (35.0-45.0); ABG PARTIAL PRESSURE O2 98.5 mmHg (75.0-100.0); ABG STANDARD HCO3 25.3 MEQ/L (22.0-26.0); ABG TOTAL CO2 29.9 MEQ/L (22.0-29.0); ABG pH (ARTERIAL) 7.324 UNITS (7.350-7.450)
[2018-08-30 20:14] LABS: INFLUENZA A AMPLIFICATION NEGATIVE (NEGATIVE); INFLUENZA B AMPLIFICATION NEGATIVE (NEGATIVE)
[2018-08-30] MEDS ORDERED: NS 1,000 ML IV ONE (20:30)
[2018-08-30 22:30] VITALS: BP 119/84
--- NOTE | 2018-08-31 08:27 | REP ---
Chest one-view HISTORY: Aspiration Comparison: 05/12/2018 Linear density is present in the left lower lobe consistent with atelectasis or scar. The right lung is clear. The heart is normal in size. The pulmonary vasculature is normal in appearance. Impression: Left lower lobe atelectasis or scar. Electronically Signed by John Hearn MD 08/31/2018 08:19 A
== END 2018-08-30 22:46 | disposition home or self-care (01) ==
LOC: M ED 18:41
DX: E86.0 Dehydration (principal); R56.9 Unspecified convulsions; Z87.820 Personal history of traumatic brain injury; Z79.899 Other long term (current) drug therapy; Z88.0 Allergy status to penicillin; Z88.1 Allergy status to other antibiotic agents; Z88.8 Allergy status to other drugs, medicaments and biological substances; Z91.018 Allergy to other foods

== ENCOUNTER 2018-11-23 10:55 | Emergency (ER) | payer MEDICARE, MEDICAID ==
[~2018-11-23] VITALS: Ht 172.7 cm; Wt 58.2 kg
[~2018-11-23 10:55] MED LIST changes: -/ONDA4TA IV; +ASPI-1 PO; -ASPI325T PO; +NITR100C2; +ONDA-1 IV; +SULF1POW
--- NOTE | 2018-11-23 12:08 | REP ---
Left lower extremity Duplex Doppler venous ultrasound: Real time compression and duplex Doppler interrogation of the left lower extremity deep venous system is performed. The left common femoral, superficial femoral and popliteal veins are fully compressible with transducer pressure and demonstrate normal spontaneous and phasic flow, without evidence of deep venous thrombosis. Impression: No evidence of deep venous thrombosis of the left lower extremity femoral popliteal venous system. There is complex fluid in the lateral calf soft tissues measuring 10.6 x 0.8 x 3.5 cm. This may represent a hematoma or phlegmonous change . Electronically Signed by Beau Wells MD 11/23/2018 12:01 P
--- NOTE | 2018-11-23 12:10 | REP ---
LEFT TIBIA/FIBULA FOUR VIEWS: HISTORY: Swelling. There is no acute fracture or dislocation. There are old healed fracture of the tibia and fibula with associated deformity. The knee joint space is normal in appearance. The ankle joint space is not well seen. IMPRESSION: There is no acute fracture or dislocation. Electronically Signed by John Hearn MD 11/23/2018 12:20 P
[2018-11-23 12:13] VITALS: BP 94/52
--- NOTE | 2018-11-23 17:21 | ED PDOC ---
Post-Departure Follow-Up beronica laughlin faxed formal report of us extremity for fu Carly Madera MD November 23, 2018 17:21
== END 2018-11-23 12:14 | disposition home or self-care (01) ==
LOC: M ED 10:55
DX: S80.12XA Contusion of left lower leg, initial encounter (principal); X58.XXXA Exposure to other specified factors, initial encounter; Y92.9 Unspecified place or not applicable; Y93.9 Activity, unspecified; Y99.9 Unspecified external cause status; E78.5 Hyperlipidemia, unspecified; Z87.820 Personal history of traumatic brain injury; Z86.73 Personal history of transient ischemic attack (TIA), and cerebral infarction without residual deficits; R56.9 Unspecified convulsions; Z87.01 Personal history of pneumonia (recurrent); Z79.82 Long term (current) use of aspirin; Z79.899 Other long term (current) drug therapy; Z88.0 Allergy status to penicillin; Z88.1 Allergy status to other antibiotic agents; Z88.8 Allergy status to other drugs, medicaments and biological substances; Z91.018 Allergy to other foods

== ENCOUNTER 2018-12-26 16:32 | Inpatient (IN) | payer MEDICARE, MEDICAID ==
[~2018-12-26] VITALS: Ht 172.7 cm; Wt 59.4 kg
[2018-12-26] MEDS ORDERED: NS 1,000 ML IV ONE (18:00)
[2018-12-26] MEDS ORDERED: LIDOCAINE 2% 5ML JELLY UROJET TOP ONE (18:00)
[2018-12-26 18:04] LABS: BASO % 0.2 % (0.0-1.0); EOS % 0.5 % (0.0-3.0); HEMATOCRIT 41.4 % (42.0-52.0); HEMOGLOBIN 14.1 g/dl (13.5-17.5); LYMPH # 0.7 10^3/uL (1.5-4.5); LYMPH % 16.1 % (24.0-44.0); MEAN CORPUSCULAR HEMOGLOBIN 31.5 pg (27.0-33.0); MEAN CORPUSCULAR HGB CONC 34.1 g/dl (32.0-36.5); MEAN CORPUSCULAR VOLUME 92.4 fl (80.0-96.0); MONO # 0.3 10^3/uL (0.0-0.8); MONO % 6.6 % (0.0-5.0); NEUTROPHILS # 3.2 10^3/uL (1.8-7.7); NEUTROPHILS % 76.4 % (36.0-66.0); PLATELET COUNT, AUTOMATED 131 10^3/uL (150-450); RED BLOOD COUNT 4.48 10^6/uL (4.30-6.10); WHITE BLOOD COUNT 4.2 10^3/uL (4.0-10.0)
[2018-12-26 18:24] LABS: ALBUMIN 3.3 GM/DL (3.2-5.2); BILIRUBIN,DIRECT 0.1 MG/DL (0.0-0.2); BILIRUBIN,TOTAL 0.2 MG/DL (0.2-1.0); TOTAL PROTEIN 7.2 GM/DL (6.4-8.2)
[2018-12-26 19:11] LABS: APPEARANCE, URINE HAZY (CLEAR); BACTERIA, URINE AUTO NEGATIVE (NEGATIVE); BILIRUBIN, URINE AUTO NEGATIVE (NEGATIVE); BLOOD, URINE BLOOD NEGATIVE (NEGATIVE); COLOR, URINE YELLOW (YELLOW); GLUCOSE, URINE (UA) AUTO NEGATIVE (NEGATIVE); KETONE, URINE AUTO NEGATIVE (NEGATIVE); LEUKOCYTE ESTERASE, URINE AUTO NEGATIVE (NEGATIVE); NITRITE, URINE AUTO NEGATIVE (NEGATIVE); PROTEIN, URINE AUTO NEGATIVE (NEGATIVE); RBC, URINE AUTO 1 /HPF (0-3); SPECIFIC GRAVITY URINE AUTO 1.023 (1.002-1.035); SQUAMOUS EPITHELIAL CELL UR AU 0 /HPF (0-6); WBC, URINE AUTO 0 /HPF (0-3)
[2018-12-26 19:20] LABS: INR 1.01; PROTHROMBIN TIME 13.4 SECONDS (12.1-14.4)
[2018-12-26 19:21] LABS: PARTIAL THROMBOPLASTIN TIME 36.5 SECONDS (25.4-37.6)
[2018-12-26 19:22] LABS: INFLUENZA A AMPLIFICATION NEGATIVE (NEGATIVE); INFLUENZA B AMPLIFICATION NEGATIVE (NEGATIVE)
[2018-12-26 19:33] LABS: AMYLASE 34 U/L (25-115); BLOOD UREA NITROGEN 17 MG/DL (7-18); C REACTIVE PROTEIN QUANTITATIV 0.42 MG/DL (0.00-0.30); CALCIUM LEVEL 8.7 MG/DL (8.5-10.1); CARBON DIOXIDE LEVEL 31 MEQ/L (21-32); CHLORIDE LEVEL 104 MEQ/L (98-107); CPK CREATINE PHOSPHOKINASE 224 U/L (39-308); CREATININE FOR GFR 0.53 MG/DL (0.70-1.30); GLOMERULAR FILTRATION RATE > 60.0 (>60); GLUCOSE, FASTING 112 MG/DL (70-100); MB/CK RELATIVE INDEX 6.52 (< OR =4); POTASSIUM SERUM 3.9 MEQ/L (3.5-5.1); SODIUM LEVEL 140 MEQ/L (136-145); TROPONIN I < 0.02 NG/ML (< 0.10)
--- NOTE | 2018-12-26 19:47 | REP ---
REASON: Fever. COMPARISON: Multiple, the latest 08/30/2018 The technique utilized in obtaining the radiograph has magnified the cardiac silhouette and accentuated the interstitial markings. FINDINGS: The superior mediastinal structures are midline. The cardiac silhouette is unremarkable in size, shape, and position. The diaphragmatic surfaces of the lungs are regular, and the costophrenic angles are clear. The pulmonary osorio are clear. The imaged osseous structures are intact. IMPRESSION: There is no acute cardiopulmonary disease. Electronically Signed by Frank Fulton DO 12/26/2018 07:48 P
[2018-12-27] VITALS (41 sets, daily range): BP systolic 86–141; BP diastolic 50–84
[2018-12-27] MEDS ORDERED: MAALOX 30 ML SUSP *UDC PO PRN
[2018-12-27] MEDS ORDERED: MOM 30ML SUSPENSION UDC PO PRN
[2018-12-27] MEDS ORDERED: ACETAMINOPHEN TAB 650MG DOSE (2X325MG) PO PRN
[2018-12-27] MEDS ORDERED: D5W/LR 1,000 ML IV SCH
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
[2018-12-27] MEDS ORDERED: NS 1,000 ML IV ONE (00:30)
[2018-12-27] MEDS ORDERED: SODIUM CHLORIDE 0.9% 1000ML IV ONE (01:00)
[2018-12-27] MEDS ORDERED: dexameTHASONE 20 MG/5 ML VIAL (J1100) IV ONE (01:15)
[2018-12-27] MEDS: cefTRIAXone SOD 2 GM in D5W MINI-BAG PLUS 50 ML IV SCH (01:44)
[2018-12-27 01:50] LABS: BASO % 0.3 % (0.0-1.0); EOS % 0.8 % (0.0-3.0); HEMATOCRIT 35.9 % (42.0-52.0); HEMOGLOBIN 12.5 g/dl (13.5-17.5); LYMPH # 1.2 10^3/uL (1.5-4.5); LYMPH % 31.3 % (24.0-44.0); MEAN CORPUSCULAR HEMOGLOBIN 32.4 pg (27.0-33.0); MEAN CORPUSCULAR HGB CONC 34.8 g/dl (32.0-36.5); MONO # 0.4 10^3/uL (0.0-0.8); MONO % 10.4 % (0.0-5.0); NEUTROPHILS # 2.1 10^3/uL (1.8-7.7); NEUTROPHILS % 56.9 % (36.0-66.0); PLATELET COUNT, AUTOMATED 131 10^3/uL (150-450); RED BLOOD COUNT 3.86 10^6/uL (4.30-6.10); WHITE BLOOD COUNT 3.7 10^3/uL (4.0-10.0)
[2018-12-27] MEDS ORDERED: NOREPINEPHRINE BITARTRATE 8 MG in D5W 492 ML IV SCH (02:00)
[2018-12-27] MEDS ORDERED: NOREPINEPHRINE 4 MG/4 ML AMP As Ordered ONE (02:04)
[2018-12-27] MEDS ORDERED: ACETAMINOPHEN 650 MG SUPP PR PRN (02:15)
[2018-12-27 02:24] LABS: ALBUMIN 2.6 GM/DL (3.2-5.2); ALT/SGPT 29 U/L (12-78); BILIRUBIN,TOTAL 0.2 MG/DL (0.2-1.0); BLOOD UREA NITROGEN 15 MG/DL (7-18); CALCIUM LEVEL 7.9 MG/DL (8.5-10.1); CARBON DIOXIDE LEVEL 27 MEQ/L (21-32); CHLORIDE LEVEL 108 MEQ/L (98-107); CPK CREATINE PHOSPHOKINASE 179 U/L (39-308); GLOMERULAR FILTRATION RATE > 60.0 (>60); GLUCOSE, FASTING 83 MG/DL (70-100); MB/CK RELATIVE INDEX 4.02 (< OR =4); POTASSIUM SERUM 4.3 MEQ/L (3.5-5.1); SODIUM LEVEL 141 MEQ/L (136-145); TOTAL PROTEIN 6.2 GM/DL (6.4-8.2); TROPONIN I < 0.02 NG/ML (< 0.10)
[2018-12-27] MEDS: LACOSAMIDE 50 MG TAB (VIMPAT) PO SCH ×3 (02:52→21:14)
[2018-12-27] MEDS: ASPIRIN 81 MG ENTERIC TAB PO SCH ×3 (02:58→21:14)
--- NOTE | 2018-12-27 03:08 | PHACANCOPD ---
PHARMACY VANCOMYCIN DOSING Pt Demographics Demographics Patient Age:48 , Weight:59.090 , Gender: male Adjusted Body Weight Date: 12/27/18, Adjusted Body Weight: Kg Events Past 24 Hours Events Past 24 Hours: NO: Dialysis, Diuretic Therapy, Change in CrCl, Fever, Elevation in WBC, Pending Diagnostics, Pending Procedures, Other Vancomycin Vancomycin Target Ranges: 10-20 mcg/ml Vancomycin Load Y/N: No Load Dose Date Time Vancomycin Load Dose: Date: Time: Vancomycin Dose Date: 12/27/18. Current Vancomycin Dose: [1000mg q12h] Intermittent Dosing?: No Labs Labs Item Value Date Time White Blood Count 3.7 10^3/uL L 12/27/18 0141 Glomerular Filtration Rate > 60.0 12/27/18 014 Creatinine 0.70 MG/DL 12/27/18 014 Blood Urea Nitrogen 15 MG/DL 12/27/18 014 Vital Signs Label Value Date Time Patient Temperature 102.1 degrees F 12/27/18 0227 Micro Microbiology 12/26/18 Blood Culture, Received Pending 12/26/18 Blood Culture, Received Pending 12/26/18 Urine Culture, Received Pending Creatinine Clearance Date:12/27/18. Creatinine Clearance: [~80]. Pending Labs Trough 06-05 @0200 Assessment and Plan Maintaining Current Dose?: Yes Reason for dose change: No Dose Change Pharmacist Note Pharmacist Note Date: 12/27/18. Pharmacist note:1000mg q12h dosing is based on a previous consult. Will monitor and make adjustments as needed. KIKE [facility] Dec 27, 2018 03:08
[2018-12-27] MEDS ORDERED: VANCOMYCIN HCL 1,000 MG, VIAL MATE ADAPTER 1 EACH in D5W 250 ML IV ONE (04:00)
[2018-12-27] MEDS ORDERED: LIDOCAINE 1% MDV 20ML VIAL As Ordered ONE (04:15)
[2018-12-27] MEDS ORDERED: LIDOCAINE 1% MDV 20ML VIAL SC ONE (04:30)
[2018-12-27] MEDS: AZTREONAM 2 GM in D5W MINI-BAG PLUS 50 ML IV SCH ×3 (04:40→19:37)
[2018-12-27] MEDS: LR 1,000 ML IV SCH ×3 (04:41→10:30)
--- NOTE | 2018-12-27 05:34 | IPNPDOC ---
Text Note Date of Service The patient was seen on 12/27/18. NOTE PROCEDURE NOTE PROCEDURE: Right IJ Triple lumen placement INDICATION: Hypotension Time out was completed. Procedure was carried out in a strict sterile condition. Right neck area was cleaned with chlorhexidine. Skin and soft tissue were infiltrated with Lidocaine. IJ was identified with ultrasound. Triple lumen catheter was inserted over guidewire; good blood flow was obtained. Guidewire was removed. Catheter was secured properly. Sterile dressing applied. CXR showed catheter tip in RV. Catheter was pulled out about 4cm, and secured again and sterile dressing applied. Repeat CXR shows catheter tip in SVC. PT tolerated procedure well. No complication noted. VS,Fishbone, I+O VS, Fishbone, I+O Laboratory Tests 12/26/18 17:42 Red Blood Count 4.48, Mean Corpuscular Volume 92.4, Mean Corpuscular Hemoglobin 31.5, Mean Corpuscular Hemoglobin Concent 34.1, Red Cell Distribution Width 12.5, Neutrophils (%) (Auto) 76.4 H, Lymphocytes (%) (Auto) 16.1 L, Monocytes (%) (Auto) 6.6 H, Eosinophils (%) (Auto) 0.5, Basophils (%) (Auto) 0.2, Neutrophils # (Auto) 3.2, Lymphocytes # (Auto) 0.7 L, Monocytes # (Auto) 0.3, E osinophils # (Auto) 0.0, Basophils # (Auto) 0.0 12/26/18 19:01 Calcium Level 8.7, Total Creatine Kinase 224 12/27/18 01:41 Red Blood Count 3.86 L, Mean Corpuscular Volume 93.0, Mean Corpuscular Hemoglobin 32.4, Mean Corpuscular Hemoglobin Concent 34.8, Red Cell Distribution Width 12.5, Neutrophils (%) (Auto) 56.9, Lymphocytes (%) (Auto) 31.3, Monocytes (%) (Auto) 10.4 H, Eosinophils (%) (Auto) 0.8, Basophils (%) (Auto) 0.3, Neutrophils # (Auto) 2.1, Lymphocytes # (Auto) 1.2 L, Monocytes # (Auto) 0.4, Eosinophils # (Auto) 0.0, Basophils # (Auto) 0.0, Calcium Level 7.9 L, Total Creatine Kinase 179, Aspartate Amino Transf (AST/SGOT) 34, Alanine Aminot ransferase (ALT/SGPT) 29, Alkaline Phosphatase 62, Total Bilirubin 0.2, Total Protein 6.2 L, Albumin 2.6 #L Vital Signs Date Time Temp Pulse Resp B/P (MAP) Pulse Ox O2 Delivery O2 Flow Rate FiO2 12/27/18 02:40 80 98 12/27/18 02:27 102.1 20 81/47 12/26/18 19:29 Room Air I&O- Last 24 Hours up to 6 AM 12/27/18 06:00 Intake Total 1050 ml Output Total 50 ml Balance 1000 ml MARJORIE MACHADO MD Dec 27, 2018 05:34
[2018-12-27 06:01] LABS: THYROID STIMULATING HORMONE 1.28 uIU/ML (0.358-3.740)
--- NOTE | 2018-12-27 07:45 | REPVR ---
EXAM: CT Chest Without Contrast EXAM DATE/TIME: 12/27/2018 4:56 AM CLINICAL HISTORY: 48 years old, male; Signs and symptoms; Other: Hypotension TECHNIQUE: Imaging protocol: Axial computed tomography images of the chest without intravenous contrast. Coronal and sagittal reformatted images were created and reviewed. Radiation optimization: All CT scans at this facility use at least one of these dose optimization techniques: automated exposure control; mA and/or kV adjustment per patient size (includes targeted exams where dose is matched to clinical indication); or iterative reconstruction. COMPARISON: CT Chest without contrast 07/07/2017 9:14 AM FINDINGS: Tubes, catheters and devices: There is a right central venous catheter. Lungs: Normal. No consolidation. No masses. Pleural space: There is pleural thickening at the left lung base posteriorly. Heart: Normal. No cardiomegaly. No pericardial effusion. Aorta: Normal. No aortic aneurysm. Lymph nodes: Unremarkable. No enlarged lymph nodes. Bones/joints: There is kyphoscoliosis. Soft tissues: Unremarkable. Upper abdomen: There is elevation of the left mook-diaphragm. IMPRESSION: No acute abnormality is identified. Please review incidental findings contained in body of report. Electronically signed by: Ollie Palafox On 12/27/2018 07:44:55 AM
--- NOTE | 2018-12-27 07:47 | REPVR ---
EXAM: CT Abdomen and Pelvis Without Contrast EXAM DATE/TIME: 12/27/2018 4:56 AM CLINICAL HISTORY: 48 years old, male; Signs and symptoms; Other: Hyypotension; Additional info: Hypotension TECHNIQUE: Imaging protocol: Axial computed tomography images of the abdomen and pelvis without contrast. Coronal and sagittal reformatted images were created and reviewed. Radiation optimization: All CT scans at this facility use at least one of these dose optimization techniques: automated exposure control; mA and/or kV adjustment per patient size (includes targeted exams where dose is matched to clinical indication); or iterative reconstruction. COMPARISON: CT ABD PELVIS WITH CONTRAST 07/06/2017 11:07 AM FINDINGS: ABDOMEN: Liver: Normal. No mass. Gallbladder and bile ducts: Normal. No calcified stones. No ductal dilation. Pancreas: Normal. No ductal dilation. Spleen: Normal. No splenomegaly. Adrenals: Normal. No mass. Kidneys and ureters: Normal. No hydronephrosis. Stomach and bowel: Postsurgical changes are noted involving the stomach, please correlate with surgical history. A rectal tube is identified. There is a moderate amount of stool throughout the colon. Appendix: No evidence of appendicitis. PELVIS: Bladder: There is a Leal balloon catheter within the urinary bladder. Reproductive: Unremarkable as visualized. ABDOMEN and PELVIS: Intraperitoneal space: Normal. No free air. No significant fluid collection. Bones/joints: No acute fracture. No dislocation. Soft tissues: There is elevation of the left mook-diaphragm. Vasculature: Normal. No abdominal aortic aneurysm. Lymph nodes: Normal. No enlarged lymph nodes. Other findings: Examination is limited due to artifact caused by patient's arms down by his side. IMPRESSION: Examination is limited due to artifact caused by patient's arms down by his side. Within the limitations of this noncontrast exam, no specific abnormalities are identified. Electronically signed by: Ollie Palafox On 12/27/2018 07:47:54 AM
--- NOTE | 2018-12-27 08:45 | REP ---
Chest one-view HISTORY: Line adjustment Comparison: 04:11 a.m. 12/27/2018 The lungs are clear. The heart is normal in size. The pulmonary vasculature is normal in appearance. A central line is present in the region of the right atrium. Impression: No acute disease. Electronically Signed by John Hearn MD 12/27/2018 08:36 A
--- NOTE | 2018-12-27 08:45 | REP ---
Chest one-view HISTORY: Line placement Comparison: 12/26/2018 The lungs are clear. The heart is normal in size. The pulmonary vasculature is normal in appearance. A central line is present in the region of the junction of the right atrium and inferior vena cava. Impression: No acute disease. Electronically Signed by John Hearn MD 12/27/2018 08:36 A
[2018-12-27] MEDS: OMEPRAZOLE 20 MG CAP PO SCH (09:30)
[2018-12-27] MEDS: HEPARIN SOD (PORCINE) 5000 UNITS/ML VIAL SQ SCH ×2 (09:30→21:14)
[2018-12-27 09:31] LABS: CORTISOL AM 1.7 UG/DL (4.3-22.4)
[2018-12-27] MEDS: NS 1,000 ML IV SCH ×2 (13:19→23:00)
[2018-12-27] MEDS: HYDROCORTISONE 100 MG/2 ML VIAL (J1720) IV SCH ×2 (13:22→21:14)
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
[2018-12-27] MEDS: VANCOMYCIN HCL 1,000 MG in D5W 250 ML IV SCH (15:52)
[2018-12-28] VITALS (14 sets, daily range): BP systolic 88–138; BP diastolic 50–80
[2018-12-28] MEDS: cefTRIAXone SOD 2 GM in D5W MINI-BAG PLUS 50 ML IV SCH (01:36)
--- NOTE | 2018-12-28 02:11 | PHACANCOPD ---
PHARMACY VANCOMYCIN DOSING Pt Demographics Demographics Patient Age:48 , Weight:59.300 , Gender: male Adjusted Body Weight Date: 12/27/18, Adjusted Body Weight: Kg Events Past 24 Hours Events Past 24 Hours: NO: Dialysis, Diuretic Therapy, Change in CrCl, Fever, Elevation in WBC, Pending Diagnostics, Pending Procedures, Other Vancomycin Vancomycin Target Ranges: 10-20 mcg/ml Vancomycin Load Y/N: No Load Dose Date Time Vancomycin Load Dose: Date: Time: Vancomycin Dose Date: 12/27/18. Current Vancomycin Dose: [1000mg q12h] Intermittent Dosing?: No Labs Labs Item Value Date Time White Blood Count 3.7 10^3/uL L 12/27/18 0141 Glomerular Filtration Rate > 60.0 12/27/18 0141 Creatinine 0.70 MG/DL 12/27/18 014 Blood Urea Nitrogen 15 MG/DL 12/27/18 0141 Vancomycin Level Trough 10.3 UG/ML 12/28/18 0132 Vital Signs Label Value Date Time Patient Temperature 96.1 degrees F 12/28/18 0000 Temperature Source Rectal 12/28/18 0000 Micro Microbiology 12/26/18 Blood Culture - Preliminary, Resulted No growth after 24 hours . All specim... 12/26/18 Blood Culture - Preliminary, Resulted No growth after 24 hours . All specim... 12/26/18 Urine Culture, Received Pending Creatinine Clearance Date:12/27/18. Creatinine Clearance: [~80]. Assessment and Plan Maintaining Current Dose?: Yes Reason for dose change: No Dose Change Pharmacist Note Pharmacist Note Date: 12/28/18. Pharmacist note:Trough of 10.3 is within target range. will continue current dosing. Will continue to monitor and make adjustments as needed. KIKE RIZZO PHARMACY Dec 28, 2018 02:11
[2018-12-28] MEDS: VANCOMYCIN HCL 1,000 MG in D5W 250 ML IV SCH ×2 (03:01→14:21)
[2018-12-28] MEDS: HYDROCORTISONE 100 MG/2 ML VIAL (J1720) IV SCH ×3 (04:10→21:14)
[2018-12-28] MEDS: AZTREONAM 2 GM in D5W MINI-BAG PLUS 50 ML IV SCH (04:10)
[2018-12-28 04:39] LABS: BASO % 0.1 % (0.0-1.0); HEMATOCRIT 35.6 % (42.0-52.0); HEMOGLOBIN 12.3 g/dl (13.5-17.5); LYMPH # 0.9 10^3/uL (1.5-4.5); LYMPH % 8.2 % (24.0-44.0); MEAN CORPUSCULAR HEMOGLOBIN 32.4 pg (27.0-33.0); MEAN CORPUSCULAR HGB CONC 34.6 g/dl (32.0-36.5); MEAN CORPUSCULAR VOLUME 93.7 fl (80.0-96.0); MONO # 0.6 10^3/uL (0.0-0.8); MONO % 5.1 % (0.0-5.0); NEUTROPHILS # 9.7 10^3/uL (1.8-7.7); NEUTROPHILS % 86.3 % (36.0-66.0); PLATELET COUNT, AUTOMATED 126 10^3/uL (150-450); WHITE BLOOD COUNT 11.3 10^3/uL (4.0-10.0)
[2018-12-28 04:59] LABS: BLOOD UREA NITROGEN 13 MG/DL (7-18); CALCIUM LEVEL 8.3 MG/DL (8.5-10.1); CARBON DIOXIDE LEVEL 30 MEQ/L (21-32); CHLORIDE LEVEL 108 MEQ/L (98-107); CREATININE FOR GFR 0.59 MG/DL (0.70-1.30); GLOMERULAR FILTRATION RATE > 60.0 (>60); GLUCOSE, FASTING 147 MG/DL (70-100); POTASSIUM SERUM 3.4 MEQ/L (3.5-5.1); SODIUM LEVEL 142 MEQ/L (136-145)
--- NOTE | 2018-12-28 07:33 | ECGEPIP ---
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
[2018-12-28] MEDS: LACOSAMIDE 50 MG TAB (VIMPAT) PO SCH ×2 (08:47→21:14)
[2018-12-28] MEDS: ASPIRIN 81 MG ENTERIC TAB PO SCH ×2 (08:48→21:13)
[2018-12-28] MEDS: HEPARIN SOD (PORCINE) 5000 UNITS/ML VIAL SQ SCH ×2 (08:48→21:14)
[2018-12-28] MEDS: OMEPRAZOLE 20 MG CAP PO SCH (08:48)
[2018-12-28] MEDS ORDERED: SLF 3 ML SYR IV PRN (15:45)
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
[2018-12-28] MEDS: SLF 3 ML SYR IV SCH (21:17)
[2018-12-28] MEDS ORDERED: RAMELTEON 8 MG TAB (ROZEREM) PO PRN (23:45)
[2018-12-29 02:00] VITALS: BP 115/72
[2018-12-29] MEDS: cefTRIAXone SOD 2 GM in D5W MINI-BAG PLUS 50 ML IV SCH (02:11)
[2018-12-29] MEDS: VANCOMYCIN HCL 1,000 MG in D5W 250 ML IV SCH (02:59)
[2018-12-29] MEDS: HYDROCORTISONE 100 MG/2 ML VIAL (J1720) IV SCH (05:38)
[2018-12-29] MEDS: SLF 3 ML SYR IV SCH (05:38)
[2018-12-29 06:00] VITALS: BP 108/75
[2018-12-29 06:23] LABS: BASO % 0.1 % (0.0-1.0); EOS % 0.1 % (0.0-3.0); HEMATOCRIT 34.4 % (42.0-52.0); HEMOGLOBIN 11.9 g/dl (13.5-17.5); LYMPH # 1.8 10^3/uL (1.5-4.5); LYMPH % 14.2 % (24.0-44.0); MEAN CORPUSCULAR HEMOGLOBIN 31.4 pg (27.0-33.0); MEAN CORPUSCULAR HGB CONC 34.6 g/dl (32.0-36.5); MEAN CORPUSCULAR VOLUME 90.8 fl (80.0-96.0); MONO # 1.3 10^3/uL (0.0-0.8); MONO % 10.1 % (0.0-5.0); NEUTROPHILS # 9.3 10^3/uL (1.8-7.7); NEUTROPHILS % 75.3 % (36.0-66.0); PLATELET COUNT, AUTOMATED 135 10^3/uL (150-450); RED BLOOD COUNT 3.79 10^6/uL (4.30-6.10); WHITE BLOOD COUNT 12.3 10^3/uL (4.0-10.0)
[2018-12-29 06:52] LABS: BLOOD UREA NITROGEN 16 MG/DL (7-18); CALCIUM LEVEL 8.6 MG/DL (8.5-10.1); CARBON DIOXIDE LEVEL 31 MEQ/L (21-32); CHLORIDE LEVEL 107 MEQ/L (98-107); CREATININE FOR GFR 0.65 MG/DL (0.70-1.30); GLOMERULAR FILTRATION RATE > 60.0 (>60); GLUCOSE, FASTING 97 MG/DL (70-100); POTASSIUM SERUM 3.1 MEQ/L (3.5-5.1); SODIUM LEVEL 143 MEQ/L (136-145)
[2018-12-29] MEDS ORDERED: CEFD300CAP PO (07:58)
[2018-12-29] MEDS ORDERED: CORT5TAB2 PO (07:59)
[2018-12-29] MEDS ORDERED: FLAG500T PO (07:59)
[2018-12-29] MEDS ORDERED: POTASSIUM CHLORIDE 10 MEQ SR TABLET PO ONE (08:00)
[2018-12-29] MEDS: HEPARIN SOD (PORCINE) 5000 UNITS/ML VIAL SQ SCH (08:28)
[2018-12-29] MEDS: OMEPRAZOLE 20 MG CAP PO SCH (08:29)
[2018-12-29] MEDS: ASPIRIN 81 MG ENTERIC TAB PO SCH (08:29)
[2018-12-29] MEDS: LACOSAMIDE 50 MG TAB (VIMPAT) PO SCH (08:29)
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
== END 2018-12-29 08:55 | disposition home or self-care (01) | DRG 871 ==
LOC: M ED 16:32 → M ED INP 23:51 → OBSVTOIN 12-27 00:55 → M ICU 12-27 02:30 → M PCU 12-28 14:32 → M MS5PR 12-28 23:15
PROVIDERS: ADMIT Internal Medicine; ATTEND Internal Medicine Nephrology
PROC: 02HV33Z Insertion of Infusion Device into Superior Vena Cava, Percutaneous Approach (ICD-10-PCS; principal; 2018-12-27)
DX: A41.9 Sepsis, unspecified organism (principal); R65.21 Severe sepsis with septic shock; G93.41 Metabolic encephalopathy; I69.954 Hemiplegia and hemiparesis following unspecified cerebrovascular disease affecting left non-dominant side; E27.40 Unspecified adrenocortical insufficiency; R68.0 Hypothermia, not associated with low environmental temperature; I69.920 Aphasia following unspecified cerebrovascular disease; I69.898 Other sequelae of other cerebrovascular disease; G40.909 Epilepsy, unspecified, not intractable, without status epilepticus; Z79.899 Other long term (current) drug therapy; Z79.82 Long term (current) use of aspirin; Z88.0 Allergy status to penicillin; Z88.8 Allergy status to other drugs, medicaments and biological substances; E55.9 Vitamin D deficiency, unspecified

== ENCOUNTER 2018-12-29 19:41 | Emergency (ER) | payer MEDICARE, MEDICAID ==
[~2018-12-29] VITALS: Ht 172.7 cm; Wt 59.1 kg
[~2018-12-29 19:41] MED LIST changes: +CEFD300CAP PO; +CORT5TAB2 PO; +FLAG500T PO
[2018-12-29 21:05] VITALS: BP 137/73
== END 2018-12-29 21:09 | disposition home or self-care (01) ==
LOC: M ED 19:41
DX: I97.620 Postprocedural hemorrhage of a circulatory system organ or structure following other procedure (principal); E78.5 Hyperlipidemia, unspecified; K21.9 Gastro-esophageal reflux disease without esophagitis; Z86.73 Personal history of transient ischemic attack (TIA), and cerebral infarction without residual deficits; Z79.82 Long term (current) use of aspirin; Z79.899 Other long term (current) drug therapy; Z88.0 Allergy status to penicillin; Z88.1 Allergy status to other antibiotic agents; Z88.8 Allergy status to other drugs, medicaments and biological substances; Z91.018 Allergy to other foods

== ENCOUNTER 2019-01-18 07:30 | Outpatient (CLI) | payer MEDICARE, MEDICAID ==
[~2019-01-18] VITALS: Ht 167.6 cm; Wt 59.1 kg
[2019-01-18 07:25] VITALS: BP 97/54
[2019-01-18] MEDS ORDERED: COSYNTROPIN 0.25 MG/ML VIAL (J0834 PER 0.25MG) IV ONE (08:00)
[2019-01-18 08:42] LABS: THYROID STIMULATING HORMONE 0.792 uIU/ML (0.358-3.740); THYROXINE (T4) 8.5 UG/DL (4.5-12.0)
[2019-01-18 10:14] LABS: LUTEINIZING HORMONE 2.8 mIU/mL (1.5-9.3); PROLACTIN 7.7 NG/ML (2.1-17.7)
[2019-01-18 10:15] VITALS: BP 118/66
== END 2019-01-18 10:15 | disposition home or self-care (01) ==
LOC: M INFU 07:30
PROVIDERS: ATTEND Internal Medicine Endocrinology, Diabetes & Metabolism
DX: E27.49 Other adrenocortical insufficiency (principal)
CPT/HCPCS: 36592; 82024; 82533; 83002; 84146; 84403; 84436; 84443; 96374; J0834

== ENCOUNTER 2019-03-22 15:15 | Emergency (ER) | payer MEDICARE, MEDICAID ==
[~2019-03-22] VITALS: Ht 170.2 cm; Wt 63.6 kg
[~2019-03-22 15:15] MED LIST changes: -OMEP40CA2 PO; +OMEP40CA97 PO
[2019-03-22 15:19] VITALS: BP 134/54
[2019-03-22] MEDS ORDERED: CVS400LI PO (15:38)
[2019-03-22] MEDS ORDERED: POLYSOL OD (15:44)
[2019-07-08] MEDS ORDERED: OMEP1CAP73 PO (12:53)
== END 2019-03-22 15:59 | disposition home or self-care (01) ==
LOC: M ED 15:15
DX: H10.021 Other mucopurulent conjunctivitis, right eye (principal); Z79.82 Long term (current) use of aspirin; Z79.899 Other long term (current) drug therapy; Z88.0 Allergy status to penicillin; Z88.1 Allergy status to other antibiotic agents; Z88.8 Allergy status to other drugs, medicaments and biological substances; Z91.018 Allergy to other foods

== ENCOUNTER 2019-07-08 09:39 | Inpatient (IN) | payer MEDICARE, MEDICAID ==
[2019-07-08] VITALS (20 sets, daily range): BP systolic 84–129; BP diastolic 51–86
[~2019-07-08] VITALS: Ht 172.7 cm; Wt 57.8 kg
[~2019-07-08 09:39] MED LIST changes: +CVS400LI PO; +POLYSOL OD
[2019-07-08] MEDS ORDERED: LACOSAMIDE 50 MG TAB (VIMPAT) PO STA (09:59)
[2019-07-08] MEDS ORDERED: NS 1,000 ML IV ONE ×2 (10:15→14:00)
[2019-07-08] MEDS ORDERED: LACOSAMIDE 10MG/ML 20ML VIAL (VIMPAT) (C9254) IV STA (10:23)
[2019-07-08] MEDS ORDERED: LORazepam 2 MG/ML VIAL (J2060) As Ordered ONE (10:29)
[2019-07-08] MEDS ORDERED: LORazepam 2 MG/ML VIAL (J2060) IV STA (10:44)
[2019-07-08 10:52] LABS: BASO % 0.2 % (0.0-1.0); EOS # 0.2 10^3/uL (0.0-0.5); EOS % 3.9 % (0.0-3.0); HEMATOCRIT 46.1 % (42.0-52.0); HEMOGLOBIN 15.5 g/dl (13.5-17.5); LYMPH % 37.6 % (24.0-44.0); MEAN CORPUSCULAR HEMOGLOBIN 31.2 pg (27.0-33.0); MEAN CORPUSCULAR HGB CONC 33.6 g/dl (32.0-36.5); MEAN CORPUSCULAR VOLUME 92.8 fl (80.0-96.0); MONO # 0.4 10^3/uL (0.0-0.8); NEUTROPHILS # 2.7 10^3/uL (1.5-8.5); NEUTROPHILS % 50.1 % (36.0-66.0); PLATELET COUNT, AUTOMATED 158 10^3/uL (150-450); RED BLOOD COUNT 4.97 10^6/uL (4.30-6.10); WHITE BLOOD COUNT 5.4 10^3/uL (4.0-10.0)
[2019-07-08 11:15] LABS: ALBUMIN 3.7 GM/DL (3.2-5.2); ALT/SGPT 42 U/L (12-78); BILIRUBIN,DIRECT < 0.1 MG/DL (0.0-0.2); BILIRUBIN,TOTAL 0.3 MG/DL (0.2-1.0); MAGNESIUM LEVEL 2.1 MG/DL (1.8-2.4); PHOSPHORUS LEVEL 3.2 MG/DL (2.5-4.9)
--- NOTE | 2019-07-08 11:20 | REP ---
Portable chest x-ray: Single view. History: Altered mental status. Seizure. Comparison chest x-ray: December 27, 2018. Findings: Monitoring electrodes are seen. Patient is rotated slightly to the left. There is minimal linear fibrosis versus plate-like atelectasis in the left base. Heart is not enlarged. Lung osorio are otherwise clear. Pleural angles are sharp. Impression: Minimal linear plate-like atelectasis versus fibrosis left base. Otherwise no acute disease. Electronically Signed by Kurt Rhoades MD 07/08/2019 11:11 A
[2019-07-08] MEDS ORDERED: LIDOCAINE 2% 5ML JELLY UROJET TOP ONE (11:30)
--- NOTE | 2019-07-08 11:31 | REP ---
CT brain without contrast: History: Altered mental status. Seizure. Comparison CT study January 03, 2017. A CT findings: Digital preliminary district scout executive radiograph is unremarkable. Bone window settings demonstrate an intact bony calvarium. No intraorbital abnormality is seen. Visualized paranasal sinuses are clear. There is an old infarct in the left frontal lobe again noted, unchanged. There is an old lacunar infarct in the right frontal lobe periventricular white matter which is also unchanged. There is an old small cerebral infarct in the right temporal lobe, unchanged from the comparison study. There is no evidence of intracranial hemorrhage. No acute infarction is seen. No mass or midline shift is observed. Vascular calcification is noted. Impression: Old infarcts in the left frontal, right frontal, and right temporal lobes. Unchanged from comparison study January 03, 2017. Vascular calcification and generalized volume loss. No acute intracranial abnormality seen. Electronically Signed by Kurt Rhoades MD 07/08/2019 12:50 P
[2019-07-08] MEDS ORDERED: NS IV ONE (12:15)
[2019-07-08] MEDS ORDERED: cefTRIAXone SOD 2 GM in D5W MINI-BAG PLUS 50 ML IV ONE (12:15)
[2019-07-08] MEDS ORDERED: GLUCOSE 4 GM CHEW TABLET PO PRN (12:30)
[2019-07-08] MEDS ORDERED: GLUCAGON FOR INJ 1 MG VIAL (J1610) SC PRN (12:30)
[2019-07-08] MEDS ORDERED: DEXTROSE 50% 50 ML SYRINGE IV PRN (12:30)
[2019-07-08] MEDS ORDERED: NOREPINEPHRINE 4 MG/4 ML AMP As Ordered ONE (12:37)
[2019-07-08] MEDS ORDERED: NOREPINEPHRINE BITARTRATE 8 MG in D5W 492 ML IV SCH ×2 (12:38→14:00)
[2019-07-08] MEDS ORDERED: NOREPINEPHRINE BITARTRATE 16 MG in D5W 484 ML IV SCH (12:45)
[2019-07-08] MEDS ORDERED: OMEP-172 PO (12:53)
[2019-07-08 12:59] LABS: C REACTIVE PROTEIN QUANTITATIV 0.47 MG/DL (0.00-0.30); CK-MB VALUE MASS 4.1 NG/ML (<3.6); CPK CREATINE PHOSPHOKINASE 73 U/L (39-308); MB/CK RELATIVE INDEX 5.62 (< OR =4); TROPONIN I < 0.02 NG/ML (< 0.10)
[2019-07-08 13:04] LABS: INR 1.17; PROTHROMBIN TIME 14.7 SECONDS (11.8-14.0)
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
[2019-07-08] MEDS: HYDROCORTISONE 100 MG/2 ML VIAL (J1720 PER 1) IV SCH ×3 (14:39→23:51)
[2019-07-08] MEDS ORDERED: VANCOMYCIN HCL 1,000 MG, VIAL MATE ADAPTER 1 EACH in D5W 250 ML IV ONE (15:00)
--- NOTE | 2019-07-08 15:02 | REP ---
Portable chest x-ray: Two views 02:46 p.m. film. History: Status post attempted line placement. Desaturation. Comparison study is from 10:57 a.m. on this date. Findings: The patient is rotated to the left. There is no evidence of pneumothorax or hydrothorax. Some discoid atelectasis is suspected in the left base. Otherwise, the lungs are clear. Electronically Signed by Kurt Rhoades MD 07/08/2019 02:53 P
[2019-07-08 15:54] LABS: BASO % 0.1 % (0.0-1.0); EOS % 0.5 % (0.0-3.0); HEMATOCRIT 39.4 % (42.0-52.0); HEMOGLOBIN 13.5 g/dl (13.5-17.5); LYMPH # 1.1 10^3/uL (1.5-5.0); LYMPH % 12.4 % (24.0-44.0); MEAN CORPUSCULAR HEMOGLOBIN 31.1 pg (27.0-33.0); MEAN CORPUSCULAR HGB CONC 34.3 g/dl (32.0-36.5); MEAN CORPUSCULAR VOLUME 90.8 fl (80.0-96.0); MONO # 0.5 10^3/uL (0.0-0.8); MONO % 5.9 % (0.0-5.0); NEUTROPHILS # 7.1 10^3/uL (1.5-8.5); NEUTROPHILS % 80.9 % (36.0-66.0); PLATELET COUNT, AUTOMATED 163 10^3/uL (150-450); RED BLOOD COUNT 4.34 10^6/uL (4.30-6.10); WHITE BLOOD COUNT 8.8 10^3/uL (4.0-10.0)
[2019-07-08 16:16] LABS: BLOOD UREA NITROGEN 18 MG/DL (7-18); CALCIUM LEVEL 8.3 MG/DL (8.5-10.1); CARBON DIOXIDE LEVEL 28 MEQ/L (21-32); CHLORIDE LEVEL 107 MEQ/L (98-107); GLOMERULAR FILTRATION RATE > 60.0 (>60); GLUCOSE, FASTING 131 MG/DL (70-100); POTASSIUM SERUM 4.3 MEQ/L (3.5-5.1); SODIUM LEVEL 143 MEQ/L (136-145)
--- NOTE | 2019-07-08 16:44 | HPE ---
DATE OF ADMISSION: 07/08/2019 CHIEF COMPLAINT: Altered mental status, seizure. HISTORY OF PRESENT ILLNESS: 48-year-old male with a history of traumatic brain injury, metabolic encephalopathy, septic shock secondary, adrenal insufficiency, cognitive and physical impairments, nonverbal at baseline. He was brought in from home by ambulance due to acute seizure this morning. According to the caregiver, he got him up to sit on the side of the bed to change his shirt. The patient then slumped over to the side and caregiver thought that he had just lost his balance and said "come on, stop fooling around," then the patient was found to not be "right, his face was different and his eyes were moving to the right side." This was at 9:13 a.m. Emergency medical services (EMS) was called and 10 minutes later the patient was brought to the emergency room. The patient has a known history of seizure disorder and did not have any Vimpat yesterday with his medications running out. The patient was due to go to [employer] this morning and he missed the evening dose and the morning dose of Vimpat. Per EMS, the patient's blood sugar was 92. He was given intravenous Ativan in the emergency room and continues to have recurrent seizures. He was given another dose of Ativan. The patient then was found to be severely hypotensive with systolic pressure of 69/41. Despite 3 liters of intravenous fluids, the patient remained hypotensive. The hospitalist was asked to admit for septic shock, probably from a urinary tract infection (UTI). He is nonverbal at baseline and per the caregiver does not usually complain. He is a fast eater and usually has episodes where he coughs but has never had any chronic aspiration in the past. Per the past 2 days, he has been increasingly more sluggish and in the emergency room he was found to have acute hypercarbic respiratory failure with a pH of 7.29 and CO2 of 57. information systems security specialist, Dr. Baeza, was consulted at bedside due to septic shock with lactic acid of 8.5 and for help in management. Central line is being placed at the moment. Urinalysis could not be obtained as the patient had significant retention and urologist, Dr. Bernal, was asked to obtain a catheterized sample of urine with strict input and output for septic shock. Levophed to be started via peripheral line to a mean arterial pressure greater than 70 until a central line is placed. Echocardiogram is pending as well. Hydrocortisone to be given for possible adrenal insufficiency. PAST MEDICAL HISTORY: 1. Recurrent seizures. 2. Septic shock secondary to urinary tract infection (UTI). 3. Metabolic encephalopathy. 4. Adrenal insufficiency. 5. Acute adrenal crisis and presence of infection with hypovolemia. 6. History of traumatic brain injury at the age of 13 with cognitive and physical impairment. 7. Chronic hypothermia. 8. Seizure disorder. 9. History of CVA and left eye blindness. 10. Paralyzed left upper and lower extremities. 11. Vitamin D deficiency. 12. Recurrent urinary tract infection (UTI). 13. 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 PAST SURGICAL HISTORY: 1. Tracheostomy. 2. Abdominal surgery. 3. Left leg surgery. 4. Status post percutaneous endoscopic gastrostomy. FAMILY HISTORY: Noncontributory. Lives with family. Unemployed, chronic disability. The patient's healthcare proxy is Sin Tubbs [phone], he is a FULL CODE. REVIEW OF SYSTEMS: Could not be obtained. SOCIAL HISTORY: Denies smoking, alcohol, recreational drug use, per family. PHYSICAL EXAMINATION: Temperature 93.9, pulse 72, respiratory rate 16, blood pressure 69/41, 96% on nonrebreather. GENERAL: The patient is in a postictal state. Unresponsive. No spontaneous movements. Pupils are equal, round and reactive. Dry mucous membranes. No jugular venous distention (JVD) or thyromegaly. LUNGS: Clear to auscultation. No wheezing or rales. HEART: S1, S2. Sinus rhythm. ABDOMEN: Soft, nontender. EXTREMITIES: Muscle atrophy in bilateral lower extremities. The patient appears cachectic. LABORATORY DATA: White count 5.4, hemoglobin 15, hematocrit 46, platelet count 158, magnesium 2.1, phosphorous 3.2, lactic acid 8.5. Total bilirubin 0.3, direct bilirubin less than 0.1, AST 27, ALT 42, alkaline phosphatase 82, total CK 72, MB fraction 4.1, troponin less than 0.02. C-reactive protein 0.47. IMAGING: CT of the head showed old infarct left frontal and right frontal, right temporal lobe, unchanged from prior examination in 2017, vascular calcification, generalized swelling, no acute intracranial abnormality. Chest x-ray: Atelectasis versus fibrosis of the left base, no acute disease. ASSESSMENT AND PLAN: This is a 48-year-old with a history of traumatic brain injury at the age of 13, cognitive and physical impairments, chronic disability, chronic hypothermia, seizure disorder, history of recurrent urinary tract infection (UTI), septic shock, metabolic encephalopathy, adrenal insufficiency, who presents with postictal state after having recurrent seizure at home due to not taking two doses of his Vimpat as he had run out of them. CURRENT ISSUES: 1. Septic shock, possible urine as the source. Urologist has been consulted due to urinary retention for urine catheterized source for culture and sensitivity, as well as gram stain, as well as strict input and output and strict critical care monitoring. High Lift Operator, Dr. Helen De Leon, has been consulted for help in management. She is currently placing a central line for Levophed drip to keep mean arterial pressure greater than 70. At this time, the patient is ordered 4 liters of IV fluids, currently on nonrebreather, but chest x-ray is clear. We will also obtain a stat 2-D echo. Due to a history of allergy penicillin and active seizures, we cannot use carbapenems, we have given intravenous ceftriaxone and for gram positive coverage will be given vancomycin through the central line. Hydrocortisone for possible adrenal insufficiency. 2. Probable urinary tract infection (UTI) causing sepsis. The patient is hypothermic, hypotensive. The patient will be given vancomycin and IV ceftriaxone. Blood cultures ordered. 3. Recurrent seizures. Currently on Vimpat IV twice a day. Neurology has been consulted. There are no acute issues on the CT of the head. 4. Adrenal insufficiency secondary to acute infection. The patient has been given hydrocortisone 100 mg IV every 6 hours. MTDD
--- NOTE | 2019-07-08 17:04 | PHACANCOPD ---
PHARMACY VANCOMYCIN DOSING Pt Demographics Demographics Patient Age:48 , Weight:58.200 , Gender: male Adjusted Body Weight Date: 07/08/19, Adjusted Body Weight: Kg Events Past 24 Hours Events Past 24 Hours: NO: Dialysis, Diuretic Therapy, Change in CrCl, Fever, Elevation in WBC, Pending Diagnostics, Pending Procedures, Other Vancomycin Vancomycin indication: SEPSIS Vancomycin Target Ranges: 15-20 mcg/ml Vancomycin Load Y/N: No Load Dose Date Time Vancomycin Load Dose: Date: Time: Vancomycin Dose Date: 07/08/19. Current Vancomycin Dose: [1g iv q8h] Intermittent Dosing?: No Labs Labs Item Value Date Time White Blood Count 5.4 10^3/uL 07/08/19 1031 White Blood Count 8.8 10^3/uL 07/08/19 1542 Neutrophils # (Auto) 2.7 10^3/uL 07/08/19 1031 Neutrophils # (Auto) 7.1 10^3/uL 07/08/19 1542 Creatinine 0.70 MG/DL 07/08/19 1542 Micro Microbiology 07/08/19 Blood Culture, Received Pending 07/08/19 Blood Culture, Received Pending Creatinine Clearance Date:07/08/19. Creatinine Clearance: [126ml/min]. Pending Labs vancomycin trough 07/09/19 @14 Assessment and Plan Maintaining Current Dose?: Yes Reason for dose change: No Dose Change Pharmacist Note Pharmacist Note Date: 07/08/19. Pharmacist note: PT is a 48 year old male being treated for sepsis goal trough 10-20mcg/ml. He was last treated with vancomycin here at [facility] in December 2018. To achieve goal the patient will start vancomycin 1g IV every 8 hours starting with a dose at 15:00 in the ER. A trough is scheduled for 14:00 07/09/19. We will continue to monitor and adjust the dose as needed. JONAH LOCKETT PHARMACY Jul 08, 2019 17:04
[2019-07-08] MEDS: KCL 10MEQ IN D5/0.45NS 1000ML 1,000 ML IV SCH ×2 (17:09→23:51)
[2019-07-08 19:27] LABS: ABG BASE EXCESS -1.9 (-2.0-2.0); ABG O2 SATURATION 96.9 % (95.0-99.0); ABG PARTIAL PRESSURE CO2 45.1 mmHg (35.0-45.0); ABG PARTIAL PRESSURE O2 96.2 mmHg (75.0-100.0); ABG STANDARD HCO3 22.8 MEQ/L (22.0-26.0); ABG TOTAL CO2 25.3 MEQ/L (22.0-29.0); ABG pH (ARTERIAL) 7.343 UNITS (7.350-7.450)
[2019-07-08] MEDS: LACOSAMIDE 10MG/ML 20ML VIAL (VIMPAT) (C9254) IV SCH (20:30)
--- NOTE | 2019-07-08 21:18 | CR ---
DATE OF CONSULTATION: 07/08/2019 CHIEF COMPLAINT: Hypotension. HISTORY OF PRESENT ILLNESS: Mr. Bush is a 48-year-old male with a history of traumatic brain ,injury history of adrenal insufficiency, cognitive and physical impairment who is nonverbal at baseline. The patient was brought in by [facility] (EMS) with concern of altered mental status. There was concern for possible seizure as his caregiver had noted the patient had slump over on his side and that his eyes were moving on to the right side and his face has appeared slumped. The patient has a history of seizure disorder and is on seizure medication. His Vimpat was not given yesterday, as it had run out. Prior to this, the patient's caregivers denied noticing any change in him. He at baseline is awake and alert, able to interact, but is nonverbal. He is able to help with some of his transitioning in the bed. They denied noticing any nausea or vomiting. He had not had any diarrhea and did not appear to be in pain or having any complaints. He did not have any coughing or fevers or chills as per the caregiver. They did notice in the past day or two that he had been somewhat more tired and sluggish as the only change. He does have a history of urinary tract infections (UTIs) in the past and a history of urinary retention. In the emergency department (ED), the patient was found to be hypotensive. Was given 3 liters of normal saline, but continued to be hypotensive. He was also minimally responsive. PAST MEDICAL-SURGICAL HISTORY: 1. Seizure disorder. 2. Adrenal insufficiency with a history of adrenal crises. 3. Post traumatic brain injury (TBI) at the age of 13 with cognitive and physical impairment. 4. Chronic hypothermia. 5. History of cerebrovascular accident (CVA) and left eye blindness, paralyzed left upper and lower extremities. 6. Vitamin D deficiency. 7. Recurrent urinary tract infection (UTI). 8. History of ischemic stroke in the right medulla. 9. Tracheostomy in the past. 10. Abdominal surgery, left leg surgery, history of percutaneous endoscopic gastrostomy in the past now reversed. HOME MEDICATIONS: - aspirin - vitamin D - Vimpat - multivitamin - omeprazole ALLERGIES: CORN OIL, PENICILLIN CIPROFLOXACIN, and PHENYTOIN. FAMILY HISTORY: Noncontributory. Lives with his family and his legal guardian Sin Bush. REVIEW OF SYSTEMS: Unable to be obtained as the patient is nonverbal. SOCIAL HISTORY: No history of smoking, alcohol or recreational drug use. PHYSICAL EXAMINATION: Temperature 96.8, pulse 82, blood pressure 69/41, oxygen saturation 95% on 3 liters nasal cannula. General: The patient appears chronically ill with generalized contractures. He is lethargic and minimally responsive. HEENT is normocephalic, atraumatic. Pupils are reactive to light bilaterally. There is dry mucous membranes. No JVD noted. Cardiac is regular rate and rhythm. Normal S1-S2. Unable to appreciate murmurs. Lungs: Clear to auscultation bilaterally with no wheezing, rales or rhonchi. Abdomen is soft, nontender, nondistended. There is a midline surgical incision. Extremities: There is atrophy in the lower extremities and the patient is contracted on the left side. There is no significant lower extremity edema noted. and then LABORATORY DATA: White blood count (WBC) 8.8, hemoglobin 13.5, platelets 163. Chemistry: Sodium 143, potassium 4.3, chloride is 107, bicarbonate is 28, BUN 18, creatinine 0.70, glucose is 131, lactic acid was 8.5 initially, AST, ALT within normal limits, bilirubin normal, troponin was negative. Microbiology: Blood cultures are pending. Urinalysis was negative for nitrates and leukocyte esterase, positive for bacteria. IMAGING STUDIES: Head CT showed old infarcts in the left frontal and right frontal and right temporal lobes, which is unchanged from previous study. There is some vascular calcifications and generalized volume loss. No acute intracranial abnormality seen. Chest x-ray showed minimal plate-like atelectasis versus fibrosis in the left base, but no focal infiltrates or effusions. Postprocedure chest x-ray shows the atelectasis in the left base, but no evidence of pneumothorax on the right side. ASSESSMENT AND PLAN: Mr. Bush is a 48-year-old male with a past medical history of post traumatic brain injury (TBI) nonverbal at baser, seizures, history of the chronic cognitive and physical impairment, previous history of stroke, adrenal insufficiency, who presented today with of possible seizure and altered mental status. In the emergency department (ED), the patient was noted to be hypotensive. He did not to have a fever and no leukocytosis and had not had any localizing symptoms as per his caregivers leading up to his admission; although as per his family, he does have a history of recurrent urinary tract infections (UTIs). The patient was started on broad-spectrum antibiotics for concern of possible urosepsis given his history. There was difficulty initially placing a Leal catheter for urine as the patient is incontinent. He did have a Leal placed by the urologist, which was sent off for culture. His UA did not appear positive however. - The patient had attempts for right a IJ triple lumen placed, in which we were able to get to the needle in with blood draw, but was unable to pass the wire due to possible distal obstruction in the vessel. He has significant contractures and so was unable to put a left IJ. The patient did have a femoral triple lumen placed and was started on Levophed for blood pressure support given his hypotension. - Will continue Levophed to maintain a MAP above 65 and followup repeat lactic acid - The patient has a history of adrenal insufficiency and would start him on hydrocortisone for possible adrenal crisis. Would check a procalcitonin to help with de-escalation of antibiotics as the potential source is still unclear as his chest x-ray is clear and he reportedly did not have any signs of nausea, vomiting or diarrhea to suggest a gastrointestinal (GI) infection. - Followup results of echo - Continue with nasal cannula oxygen supplementation as needed to maintain oxygen saturation above 90%. The patient's arterial blood gas (ABG) on admission showed acute hypercapnic respiratory failure with inappropriate compensation for his metabolic acidosis. Would continue to monitor his ABGs as suspect with improving acidosis that his ABGs will also improve. Given his baseline mental status, the patient would not be a candidate for BiPAP; and if he were to have worsening CO2 retention then he would need intubation and mechanical ventilation. - Discussed with the patient's legal guardian and next of kin about code status and he is currently a full code. There had previously been some discussion about DO NOT RESUSCITATE (DNR) but this was overturned legally. Deep vein thrombosis (DVT) prophylaxis. Lovenox Code status: Full code. Total critical care time spent not including any procedures approximately 2 hours. ABENA
--- NOTE | 2019-07-08 22:11 | ECGEPIP ---
[facility] - ED Test Date: 2019-07-08 Pat Name: BLAIR NI Department: Room: [place] [address] Gender: Male Feather Washer: krystyna le : 1970 Requested By: Carly Uribe Order Number: [id number] Reading MD: Walt Swain Measurements Intervals [place] Rate: 105 P: 80 VA: 164 QRS: 60 QRSD: 104 T: 67 QT: 337 QTc: 447 Interpretive Statements SINUS TACHYCARDIA Nonspecific ST-T wave abnormalities Rate increased from tracing done 12-26-18 Electronically Signed on 07-08-2019 22:10:54 EST by Walt Swain
[2019-07-08] MEDS: VANCOMYCIN HCL 1,000 MG, VIAL MATE ADAPTER 1 EACH in D5W 250 ML IV SCH (23:51)
[2019-07-09] VITALS (54 sets, daily range): BP systolic 71–148; BP diastolic 43–90
[2019-07-09 05:08] LABS: HEMATOCRIT 40.6 % (42.0-52.0); HEMOGLOBIN 13.5 g/dl (13.5-17.5); MEAN CORPUSCULAR HEMOGLOBIN 30.7 pg (27.0-33.0); MEAN CORPUSCULAR HGB CONC 33.3 g/dl (32.0-36.5); MEAN CORPUSCULAR VOLUME 92.3 fl (80.0-96.0); PLATELET COUNT, AUTOMATED 132 10^3/uL (150-450); WHITE BLOOD COUNT 14.2 10^3/uL (4.0-10.0)
[2019-07-09 05:32] LABS: ALBUMIN 2.8 GM/DL (3.2-5.2); ALT/SGPT 32 U/L (12-78); BILIRUBIN,TOTAL 0.4 MG/DL (0.2-1.0); BLOOD UREA NITROGEN 13 MG/DL (7-18); CALCIUM LEVEL 8.6 MG/DL (8.5-10.1); CARBON DIOXIDE LEVEL 28 MEQ/L (21-32); CHLORIDE LEVEL 107 MEQ/L (98-107); CREATININE FOR GFR 0.63 MG/DL (0.70-1.30); GLOMERULAR FILTRATION RATE > 60.0 (>60); GLUCOSE, FASTING 185 MG/DL (70-100); MAGNESIUM LEVEL 1.9 MG/DL (1.8-2.4); POTASSIUM SERUM 3.9 MEQ/L (3.5-5.1); SODIUM LEVEL 141 MEQ/L (136-145); TOTAL PROTEIN 6.8 GM/DL (6.4-8.2)
[2019-07-09] MEDS: VANCOMYCIN HCL 1,000 MG, VIAL MATE ADAPTER 1 EACH in D5W 250 ML IV SCH (06:20)
[2019-07-09] MEDS: HYDROCORTISONE 100 MG/2 ML VIAL (J1720 PER 1) IV SCH ×3 (06:20→18:00)
[2019-07-09] MEDS ORDERED: NOREPINEPHRINE BITARTRATE 8 MG in D5W 492 ML IV SCH ×2 (07:06→08:00)
[2019-07-09] MEDS ORDERED: NS 2,000 ML IV ONE (08:00)
--- NOTE | 2019-07-09 08:03 | RO ---
DATE OF PROCEDURE: 07/08/2019 INDICATION: Vasopressor administration. PREPROCEDURE DIAGNOSIS: Shock. POSTPROCEDURE DIAGNOSIS: Shock. PROCEDURE: Femoral central line. ATTENDING PHYSICIAN: Helen De Leon MD CONSENT: Consent was obtained from the patient's legal guardian and healthcare proxy prior to the procedure. Indications, risks and benefits were explained at length. PROCEDURE SUMMARY: Central line insertion practice form was completed by an independent observer starting with the first hand wash prior to starting sterile technique. A time-out was performed prior to the procedure. Full sterile technique was maintained throughout procedure including surgical cap, mask, protective eye wear, sterile gown and sterile gloves. The left inguinal region was prepped using chlorhexidine scrub and draped in sterile fashion using a full drape and sterile probe cover employed. Anesthesia was achieved using 1% lidocaine. The left femoral vein was identified on ultrasound and using real time out of plane ultrasound guidance. The introducer needle was inserted into the femoral vein. Venous blood was withdrawn. The syringe was removed and a guidewire was advanced into the introducer needle. The guidewire was visualized in the femoral vein by ultrasound and the needle was removed over the guidewire. A small incision was made at the skin surface with a scalpel and a dilator was exchanged over the guidewire. After appropriate dilation was obtained the dilator was exchanged over wire for a triple lumen central venous catheter. The wire was removed and the catheter was sutured in place. A sterile chlorhexidine impregnated dressing was placed over the catheter insertion site. The patient tolerated procedure without any hemodynamic compromise. At time of procedure completion, all ports aspirated and flushed properly. Estimated blood loss is less than 5 mL. The patient had previous attempts with a right IJ triple lumen using ultrasound guidance as well as a right subclavian. Was able to get access with venous blood return in the introducer needle but the wire was unable to be threaded likely due to a distal obstruction in the vein. He was therefore attempted with femoral access which was successful on the left side. The patient had postprocedure chest x- ray done which did not show any evidence of pneumothorax. [facility]
--- NOTE | 2019-07-09 08:34 | REP ---
Portable chest x-ray: Sitting AP view. History: Status post attempted line placement. Shortness of breath. Rule out pneumothorax. Comparison chest x-ray is from July 08, 2019. Findings: The patient is rotated to the left as before. Aeration in the left base is somewhat improved. There is still some plate-like atelectasis laterally in the left base. The right lung is clear. There is no visible pneumothorax on either side. Heart size is normal. Electronically Signed by Kurt Rhoades MD 07/09/2019 08:25 A
[2019-07-09] MEDS: LACOSAMIDE 10MG/ML 20ML VIAL (VIMPAT) (C9254) IV SCH ×2 (08:51→20:50)
[2019-07-09] MEDS: ENOXAPARIN 40 MG/0.4 ML SYRINGE (J1650) SC SCH (08:51)
--- NOTE | 2019-07-09 11:06 | ECHO ---
DATE OF PROCEDURE: 07/08/2019 REFERRING PHYSICIAN: Lakshmi Shay MD INDICATION: Sepsis. HEIGHT: 172 cm WEIGHT: 58 kg DIMENSIONS: IVS: 1.0 LV: 4.0 LVPW: 1.1 Aorta: 3.3 LA: 2.8 IVC: 1.6 Mitral E wave velocity: 50, A wave: 72 E prime septal: 7.7 E prime lateral: 9.5 FINDINGS: The study is of acceptable technical quality. The patient is in sinus rhythm. Left ventricle is normal size and overall normal systolic function, estimated left ventricular ejection fraction (LVEF) is about 60-65%. Right ventricle is also normal size and systolic function. Both atria appear normal. All four cardiac valves appear normal. No pericardial effusion is present. Inferior vena cava is normal size. Aortic root is normal. Aortic arch and abdominal aorta were poorly seen. DOPPLER: Doppler interrogation of all four valves reveals no stenosis or significant insufficiency. There is trivial tricuspid regurgitation (TR) and calculated pulmonary artery pressure is within normal limits, but the quality of TR jet was poor and this should not be considered overly reliable. Mitral inflow pattern and tissue Doppler imaging of mitral annulus reveal grade 1 diastolic dysfunction. CONCLUSIONS 1. Study is of acceptable technical quality. 2. Normal LV size and systolic function, grade 1 diastolic dysfunction. 3. No significant valvular disease. 4. Likely normal central venous pressure and normal pulmonary artery pressure. COMMENT Subacute bacterial endocarditis (SBE) prophylaxis is not recommended.
[2019-07-09] MEDS: cefTRIAXone SOD 2 GM in D5W MINI-BAG PLUS 50 ML IV SCH (12:50)
--- NOTE | 2019-07-09 14:47 | CCN ---
CRITICAL CARE PROGRESS NOTE: DATE: 07/09/2019 The patient was seen and examined this morning during bedside rounds. Yesterday during the afternoon he was able to be weaned off of his Levophed. However it did have to be restarted overnight and he is still currently on Levophed, although has been weaned down to two mcg per kilogram per minute. This morning, the patient's mental status appears improved. He is awake and alert and able to make noises which are not able to and understood which is his baseline mental status as per his family and caregiver. He has not had any fevers overnight. PHYSICAL EXAMINATION: Temperature 96.9, pulse 68, respirations 12, blood pressure 100/60, O2 sat 97% on room air. Ins 882, out 750. General: The patient appears chronically ill and has contractures noted. HEENT: He is normocephalic, atraumatic. There are moist mucous membranes. Unable to appreciate any jugular venous distention (JVD). Cardiac: Regular rate and rhythm. Normal S1, S2. Unable to appreciate any murmurs. Lungs: Clear to auscultation bilaterally with no wheezing, rales or rhonchi. Abdomen: Soft, nontender, nondistended. There is a midline surgical incision. Extremities: There is atrophy and physical deformities in the extremities with contractures noted, more so on the left side. There is no significant lower extremity edema noted. LABORATORY DATA WBC 14.2, hemoglobin 13.5, platelets are 132. Chemistry: Sodium is 141, potassium 3.9, chloride is 107, bicarb is 28, BUN 13, creatinine 0.63, glucose is 185. ABG overnight, pH 7.343, pCO2 of 45.1, pO2 of 96.2. IMAGING STUDIES: Chest x-ray shows minimal atelectasis in the left base with some mild improved aeration, but no focal opacities or effusions. ASSESSMENT AND PLAN: Mr. Bush is a 48-year-old male with a history of traumatic brain injury (TBI), nonverbal at baseline, seizures, history of chronic cognitive and physical impairment, previous history of stroke and adrenal insufficiency in the past who presented with possible seizure and altered mental status. The patient was hypotensive in the ED and was given normal saline fluid boluses with no improvement in his blood pressure. He had a triple lumen catheter placed and was started on Levophed for vasopressor support. The patient was also started on broad-spectrum antibiotics for concern for possible sepsis, although his source is unclear at this time. - The patient has a history of recurrent UTIs and initially was thought to have a presumed urosepsis with his history. His UA which was sent from the Leal, which was placed by urology did not appear positive. His blood cultures are NGTD. - He initially had no fever or leukocytosis. He does have a slight leukocytosis today. However, he has been on high doses of steroids and this may be reactive. - The patient does have a history of adrenal insufficiency and he may have had an acute adrenal crisis contributing to his hypotension and shock. Would continue with IV hydrocortisone and would need to taper steroids likely. He was previously seen by endocrinology, Dr. Hills, for his a history of adrenal insufficiency, but was told he did not need chronic medications as it was thought to be due to an acute stressor. He may need re-evaluation as outpatient - Continue with Levophed and will slowly titrate off as tolerated. The patient was given IV fluid boluses by primary team to help with weaning the vasopressors. Would continue to maintain a MAP above 65. - The patient's echocardiogram did not show any acute valvular disease and showed a normal ejection fraction (EF). - Will continue with antibiotics, but will followup procalcitonin to help with de-escalation as it is unclear if he does have actual infectious etiology contributing to his shock. - Patient was weaned off nasal cannula oxygen supplementation and has been satting well on room air. His repeat ABG also shows improvement in his acidosis. - Patient has a left femoral triple lumen in place for vasopressor access. Today is day 2. Would DC the femoral line on day 3 and if he is needing central access would place a PICC line. DVT prophylaxis. Lovenox. FULL CODE. Total critical care time spent not including procedures approximately 40 minutes. Please do not hesitate to call if any further questions or concerns. MTDD
--- NOTE | 2019-07-09 15:40 | PHACANCOPD ---
PHARMACY VANCOMYCIN DOSING Pt Demographics Demographics Patient Age:48 , Weight:56.400 , Gender: male Adjusted Body Weight Date: 07/08/19, Adjusted Body Weight: Kg Events Past 24 Hours Events Past 24 Hours: NO: Dialysis, Diuretic Therapy, Change in CrCl, Fever, Elevation in WBC, Pending Diagnostics, Pending Procedures, Other Vancomycin Vancomycin indication: SEPSIS Vancomycin Target Ranges: 15-20 mcg/ml Vancomycin Load Y/N: No Load Dose Date Time Vancomycin Load Dose: Date: Time: Vancomycin Dose Date: 07/09/19. Current Vancomycin Dose: [750MG IV Q8H] Date: 07/08/19. Current Vancomycin Dose: [1g iv q8h] Intermittent Dosing?: No Labs Labs Item Value Date Time White Blood Count 5.4 10^3/uL 07/08/19 1031 White Blood Count 8.8 10^3/uL 07/08/19 1542 White Blood Count 14.2 10^3/uL H 07/09/19 0435 Creatinine 0.70 MG/DL 07/08/19 1542 Creatinine 0.63 MG/DL L 07/09/19 0435 Vancomycin Level Trough 20.6 UG/ML H 07/09/19 1357 Micro Microbiology 07/08/19 Blood Culture - Preliminary, Resulted No growth after 24 hours . All specim... 07/08/19 Blood Culture - Preliminary, Resulted No growth after 24 hours . All specim... Creatinine Clearance Date:07/08/19. Creatinine Clearance: [126ml/min]. Pending Labs vancomycin trough 07/09/19 @14 Assessment and Plan Maintaining Current Dose?: No Reason for dose change: Trough too high Pharmacist Note Pharmacist Note Date: 07/09/19. Pharmacist note: PT trough came back at 20.6mcg/ml prior to the 4th dose. The dose will change to 750mg iv q8h starting at 16:00. A trough is scheduled for 15:00 07/10/19. We will continue to monitor and adjust the dose as needed. Date: 07/08/19. Pharmacist note: PT is a 48 year old male being treated for sepsis goal trough 10-20mcg/ml. He was last treated with vancomycin here at [facility] in December 2018. To achieve goal the patient will start vancomycin 1g IV every 8 hours starting with a dose at 15:00 in the ER. A trough is scheduled for 14:00 07/09/19. We will continue to monitor and adjust the dose as needed. JONAH LOCKETT PHARMACY Jul 09, 2019 15:40
[2019-07-09] MEDS: VANCOMYCIN HCL 750 MG, VIAL MATE ADAPTER 1 EACH in D5W 250 ML IV SCH (16:34)
--- NOTE | 2019-07-09 18:39 | CR ---
DATE OF CONSULTATION: 07/09/2019 REFERRING PHYSICIAN: Lakshmi Shay MD REASON FOR CONSULTATION: Seizure and altered mental status. HISTORY OF PRESENT ILLNESS: Bari Bush is a 48-year-old man with history of traumatic brain injury, metabolic encephalopathy, septic shock, adrenal insufficiency, cognitive and physical impairment with nonverbal status at his baseline and history of seizures. He missed a dose of his Vimpat the night before yesterday morning. As he was waking up around 9 a.m. he had a generalized tonic-clonic seizure followed by prolonged postictal phase. He remained semi-responsive when he was brought to emergency department for half a day. He was postictal. He was noted to have low blood pressure, systolic blood pressure in 70s. He was given intravenous fluid, but his blood pressure remained hypotensive. He was admitted due to possible septic shock. His blood cultures are pending. He has required norepinephrine infusion intravenously overnight. His blood pressure this morning is better. He is back to his normal self. He is awake and is able to respond. He has severe dysarthria at his baseline. He has history of traumatic brain injury and history of stroke as well. He is today back to his baseline. He had a generalized tonic-clonic seizure yesterday morning which lasted for 8 minutes followed by prolonged postictal phase as described above. He denies any headaches, neck or back pain. His family think that he is back to his baseline this morning. He had a central line placed yesterday. 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 SOCIAL HISTORY: He lives with his family. He denies smoking, alcohol or illicit drugs. REVIEW OF SYSTEMS: All systems were reviewed and found to be noncontributory except as mentioned in history present illness. FAMILY HISTORY: He is unemployed. He is on disability. He is FULL CODE. CURRENT MEDICATIONS: - ceftriaxone - norepinephrine - vancomycin - Vimpat 200 mg IV twice a day - hydrocortisone PHYSICAL EXAMINATION: Blood pressure 100/63, temperature 96.9, pulse 68, respiratory rate 12, blood pressure earlier was 83/49 and in the emergency department was 69/41. Heart: Regular rate and rhythm. Lungs: Clear to auscultation. Abdomen: Soft, nontender, nondistended. No pedal edema. No musculoskeletal abnormalities. He has left arm and leg contractures without any fracture. He has severe dysarthria from his severe TBI and history of stroke as well. He is oriented to self and place. He is awake and alert. He is able to move his right arm and leg. He has severe left hemiplegia. Left plantar is upgoing. He is unable to walk. Sensation is intact bilaterally. No dysmetria on right side. He is unable to move his left side. DIAGNOSTIC STUDIES: His WBCs were 14.2, platelet count 132 with normal metabolic profile. His arterial blood gas showed pH 7.29, pCO2 was 57.9 with pO2 90%. 2+ bacteria in urine and blood cultures are pending. ASSESSMENT: 1. Generalized tonic-clonic seizures related to his traumatic brain injury and missing dose of Vimpat. 2. Possible septic shock with adrenal insufficiency. 3. History of Brainstem Stroke. PLAN: 1. Vimpat 200 mg IV twice a day which can be changed to Vimpat to 200 mg by mouth twice a day tomorrow. 2. His blood cultures are pending and echocardiogram is pending. 3. Continue supportive care with IV antibiotics and intravenous norepinephrine for septic shock. His blood cultures are pending. 4. Aspirin 162 mg po qd. He has a followup scheduled next month with our office. ABENA
[2019-07-10] VITALS (11 sets, daily range): BP systolic 103–132; BP diastolic 56–97
[2019-07-10] MEDS: HYDROCORTISONE 100 MG/2 ML VIAL (J1720 PER 1) IV SCH ×4 (00:28→17:58)
[2019-07-10] MEDS: VANCOMYCIN HCL 750 MG, VIAL MATE ADAPTER 1 EACH in D5W 250 ML IV SCH ×3 (00:28→08:15)
[2019-07-10] MEDS ORDERED: RAMELTEON 8 MG TAB (ROZEREM) PO ONE (01:15)
[2019-07-10 03:48] LABS: HEMATOCRIT 34.2 % (42.0-52.0); MEAN CORPUSCULAR HEMOGLOBIN 31.2 pg (27.0-33.0); MEAN CORPUSCULAR HGB CONC 33.6 g/dl (32.0-36.5); MEAN CORPUSCULAR VOLUME 92.7 fl (80.0-96.0); PLATELET COUNT, AUTOMATED 118 10^3/uL (150-450); RED BLOOD COUNT 3.69 10^6/uL (4.30-6.10); WHITE BLOOD COUNT 16.2 10^3/uL (4.0-10.0)
[2019-07-10 03:59] LABS: HEMOGLOBIN 11.5 g/dl (13.5-17.5)
[2019-07-10 04:31] LABS: BLOOD UREA NITROGEN 18 MG/DL (7-18); CALCIUM LEVEL 8.1 MG/DL (8.5-10.1); CARBON DIOXIDE LEVEL 30 MEQ/L (21-32); CHLORIDE LEVEL 112 MEQ/L (98-107); GLOMERULAR FILTRATION RATE > 60.0 (>60); GLUCOSE, FASTING 121 MG/DL (70-100); MAGNESIUM LEVEL 1.8 MG/DL (1.8-2.4); POTASSIUM SERUM 3.4 MEQ/L (3.5-5.1); SODIUM LEVEL 147 MEQ/L (136-145)
[2019-07-10] MEDS ORDERED: POTASSIUM CHLORIDE 10 MEQ SR TABLET PO ONE ×2 (05:45→07:30)
[2019-07-10] MEDS: ENOXAPARIN 40 MG/0.4 ML SYRINGE (J1650) SC SCH (08:16)
[2019-07-10] MEDS: LACOSAMIDE 10MG/ML 20ML VIAL (VIMPAT) (C9254) IV SCH (09:47)
[2019-07-10 10:38] LABS: PROLACTIN 10.1 NG/ML (2.1-17.7)
[2019-07-10] MEDS: cefTRIAXone SOD 2 GM in D5W MINI-BAG PLUS 50 ML IV SCH (12:56)
--- NOTE | 2019-07-10 18:46 | IPN ---
DATE: 07/09/2019 Patient is much more awake and alert today. He is nonverbal and requiring a Levophed drip at 1 mcg with mean arterial pressure (MAP) of 60-65. Patient did receive 1.6 and 1.2 liters overnight. Output was negative 758. Patient is on broad-spectrum antibiotics, afebrile, no chills, requesting for food this morning, rubbing his abdomen and per the relative at the bedside, usually means he is hungry. Vital Signs: Temperature 97.3, was hypothermic yesterday at 93.9, pulse 75, respiratory rate 12, blood pressure 95/58, 97% on room air. Generally, patient is awake, alert, oriented to person only. He has garbled speech, essentially incomprehensible. No jugular venous distention (JVD). No thyromegaly. Lungs are clear to auscultation. No wheezing, rales or rhonchi. Heart: S1, S2, sinus rhythm. Abdomen is soft, nontender, nondistended. Extremities: No cyanosis, clubbing or pitting edema. Patient has significant muscle wasting, protein-calorie malnutrition with contractures. LABORATORY DATA: White count 14, hemoglobin 13, hematocrit 40, platelet count 132, admission platelet count 158. Sodium 141, potassium 3.9, chloride 107, bicarbonate 28, BUN 13, creatinine 0.63, glucose of 185, magnesium 1.9, total bilirubin 0.4, troponin less than 0.02, CRP 0.47. Two sets of blood cultures are negative. CT of the head 07/08/2019: Old infarct bilateral frontal, right temporal lobe, unchanged. Volume loss. No acute intracranial pathology. Chest x-ray: No acute infiltrate. Urine culture: Unavailable. ASSESSMENT AND PLAN: This is a 48-year-old with a history of traumatic brain injury, recurrent seizures, nonverbal at baseline, with urine retention, recurrent urinary tract infections (UTIs), septic shock, metabolic encephalopathy, adrenal insufficiency with cognitive and physical impairments, brought in yesterday after having multiple seizures at home with acute encephalopathy, hypothermia,, and hypotension. Patient was admitted to the intensive care unit (ICU) and started on Levophed drip, hydrocortisone, broad-spectrum antibiotics with vancomycin, ceftriaxone due to a history of penicillin allergy, and due to recurrent seizures, carbapenems could not be used. Now with the following issues: 1. Severe sepsis, responded to IV fluids and low dose Levophed drip. We are attempting to wean this off. Will continue with IV fluid hydration. Since the patient is much more awake, may advance diet to regular diet. Patient's Levophed is being weaned off at the moment. Once this is stable with mean arterial pressure greater than 65, may transfer to medical-surgical floor. Still on broad-spectrum antibiotics with ceftriaxone and vancomycin. If blood and urine cultures are negative, may discontinue all antibiotics. He is still on hydrocortisone for adrenal insufficiency due to severe hypotension from sepsis. 2. Probable adrenal insufficiency due to acute infection. Urine culture is still pending. Two sets of blood cultures are still negative. Patient has received hydrocortisone and ceftriaxone and vancomycin, IV fluids for full supportive care. 3. Recurrent seizures. Patient ran out of Vimpat and missed two doses. He is currently on Vimpat. Neurologist has been consulted. If tolerating his diet well, may change to oral Vimpat. Will check a level and adjust accordingly. 4. Protein-calorie malnutrition. Body mass index (BMI) is 18 with muscle wasting. Store Operations Specialist consult for supplemental nutrition to improve patient's nutritional status. 5. Traumatic brain injury. Requires 24/7 care, which the family is able to provide at home. 6. Urine retention, status post Leal catheter placement by Dr. Mae, urologist consulted. DISPOSITION: Transfer to medical-surgical floor once the patient has been off of the Levophed for 24 hours with mean arterial pressure greater than 65. MTDD
--- NOTE | 2019-07-10 19:03 | IPNPDOC ---
Date Seen The patient was seen on 07/10/19. Progress Note IV infiltrated/no iv access -review of urine cx in the past: ecoli sensitive to augmentin and bactrim dc'ed iv zosyn, changed to augmentin -blood cx negative -bacid to decrease risk of cdiff -for adrenal insufficiency, changed to po hydrocortisone. VS, I&O, 24H, Fishbone Vital Signs/I&O Vital Signs Date Time Temp Pulse Resp B/P (MAP) Pulse Ox O2 Delivery O2 Flow Rate FiO2 07/10/19 14:00 97.0 74 15 103/63 (76) 96 Room Air 07/08/19 23:00 1.0 I&O- Last 24 Hours up to 6 AM 07/10/19 06:00 Intake Total 1790 ml Output Total 2315 ml Balance -525 ml Laboratory Data 24H LABS Laboratory Tests 2 07/10/19 03:40: Nucleated Red Blood Cells % (auto) 0.0, Anion Gap 5L, Glomerular Filtration Rate > 60.0, Calcium Level 8.1L, Magnesium Level 1.8 07/10/19 11:34: Urine Color STRAW, Urine Appearance CLEAR, Urine pH 6.0, Urine Specific [place] 1.006, Urine Protein NEGATIVE, Urine Glucose (UA) NEGATIVE, Urine Ketones NEGATIVE, Urine Blood 3+H, Urine Nitrite NEGATIVE, Urine Bilirubin NEGATIVE, Urine Urobilinogen 0.2, Urine Leukocyte Esterase NEGATIVE, Urine WBC (Auto) 2, Urine RBC (Auto) 11H, Urine Hyaline Casts (Auto) 0, Urine Bacteria (Auto) NEGATIVE, Urine Squamous Epithelial Cells 0, Urine Amorphous Sediment SMALLH, Urine Mucus (Auto) SMALL, Urine Sperm (Auto) CBC/BMP Laboratory Tests 07/10/19 03:40 Microbiology Microbiology 07/10/19 Catheter Tip Culture, Received Pending 07/08/19 Blood Culture - Preliminary, Resulted No Growth after 48 hours. All Specime... 07/08/19 Blood Culture - Preliminary, Resulted No Growth after 48 hours. All Specime... DENNYS SORIANO MD Jul 10, 2019 19:03
[2019-07-10] MEDS: LACOSAMIDE 50 MG TAB (VIMPAT) PO SCH (20:56)
[2019-07-10] MEDS: LACTOBACILLUS ACIDOPHILUS CAP (BACID) PO SCH (20:56)
[2019-07-10] MEDS: RAMELTEON 8 MG TAB (ROZEREM) PO SCH (20:57)
[2019-07-10] MEDS: HYDROCORTISONE 10 MG TAB PO SCH (20:57)
[2019-07-10] MEDS: BACTRIM 160MG/800MG DS TAB PO SCH (20:57)
[2019-07-10] MEDS ORDERED: AUGMENTIN 875 MG TAB PO SCH (21:00)
[2019-07-11] MEDS: HYDROCORTISONE 10 MG TAB PO SCH ×3 (06:06→20:44)
[2019-07-11 06:11] LABS: HEMATOCRIT 33.8 % (42.0-52.0); HEMOGLOBIN 11.1 g/dl (13.5-17.5); MEAN CORPUSCULAR HEMOGLOBIN 30.7 pg (27.0-33.0); MEAN CORPUSCULAR HGB CONC 32.8 g/dl (32.0-36.5); MEAN CORPUSCULAR VOLUME 93.6 fl (80.0-96.0); PLATELET COUNT, AUTOMATED 118 10^3/uL (150-450); RED BLOOD COUNT 3.61 10^6/uL (4.30-6.10)
[2019-07-11 06:20] LABS: BLOOD UREA NITROGEN 20 MG/DL (7-18); CALCIUM LEVEL 8.6 MG/DL (8.5-10.1); CARBON DIOXIDE LEVEL 31 MEQ/L (21-32); CHLORIDE LEVEL 114 MEQ/L (98-107); CREATININE FOR GFR 0.56 MG/DL (0.70-1.30); GLOMERULAR FILTRATION RATE > 60.0 (>60); GLUCOSE, FASTING 69 MG/DL (70-100); MAGNESIUM LEVEL 1.7 MG/DL (1.8-2.4); POTASSIUM SERUM 4.1 MEQ/L (3.5-5.1); SODIUM LEVEL 148 MEQ/L (136-145)
[2019-07-11 06:34] VITALS: BP 108/61
--- NOTE | 2019-07-11 07:52 | IPN ---
DATE OF SERVICE: 07/10/2019 The patient is back to his baseline. He is afebrile. Blood pressure is well maintained at 130/80. He is on tapering dose of hydrocortisone. Currently still on IV ceftriaxone and vancomycin for a presumed urinary tract infection (UTI). Urine culture had not been sent from admission. Vitals: Temperature 96.8, pulse 74, respiratory rate 12, blood pressure 130/80, 98% on room air. Generally, the patient is awake, alert and oriented to himself only. He is nonverbal at baseline. Lungs are clear to auscultation. No wheezing, rales or rhonchi. Heart: S1 and S2. Sinus rhythm. Abdomen: Soft. Nontender. Nondistended. Positive bowel sounds. Extremities: No cyanosis, clubbing or pitting edema. Laboratory Data, microbiology and imaging studies have all been reviewed. ASSESSMENT AND PLAN: This is a 48-year-old male with recurrent seizures, UTI, septic shock, and adrenal insufficiency who came from home with 24/7 care with recurrent seizures. The patient was admitted for septic shock. He was started empirically on vancomycin and ceftriaxone with Levophed drip and hydrocortisone for adrenal insufficiency. Current Issues: 1. Septic shock. Resolved. Status post IV fluids and Levophed drip. Currently on hydrocortisone on tapering dose, broad spectrum antibiotics vancomycin and IV ceftriaxone due to penicillin allergy. We could not use carbapenems due to recurrent seizures. 2. Recurrent seizures. May transition over to Vimpat orally today 200 mg twice a day. 3. Probable UTI. Urine sample was not sent on admission. The patient is on empiric antibiotics. Will check urinalysis (UA) with reflex cultures. 4. Urine retention. Urologist was consulted. Leal catheter was placed. 5. Adrenal insufficiency secondary to acute infection. On tapering dose of hydrocortisone. 6. Disposition. May transfer to medical-surgical floor.
--- NOTE | 2019-07-11 08:04 | IPN ---
DATE: 07/11/2019 Bari is seen on the hospitalist service admitted with seizures. Mental status seems to be back to baseline. He is becoming a little more hypernatremic. His blood pressure is stabilized. His cultures, so far, are negative. PHYSICAL EXAMINATION: Blood pressure 108/61, pulse 77, respiratory rate 20, 96% oxygen saturation. Patient is alert, conversant, in no distress. Feeding himself and watching sports center. HEENT: Unremarkable. Lungs clear. Heart regular rhythm. Abdomen soft, nontender. No peripheral edema. Neurological exam nonfocal. LABS: Sodium 148, it was 141 a few days ago. BUN 20, creatinine 0.5, glucose 69. IMPRESSION: 1. Recurrent seizures probably secondary to missing Vimpat at home. He has been seizure free since arriving to the hospital. Neurology has been consulted. 2. Severe sepsis: Probably adrenal insufficiency. Cultures so far have been negative. Catheter tip culture is still pending. Leukocytosis has resolved. White count is down to 10. He is on oral antibiotic because of a previously positive urine culture. It looks like that was quite a while ago. Might discontinue his Bactrim on discharge. 3. Adrenal insufficiency: He is back on hydrocortisone. 4. Track brain injury: At baseline metal status. PLAN: Discharge tomorrow if sodium has improved. Will discontinue the antibiotic if the culture tip is negative.
[2019-07-11] MEDS: LACOSAMIDE 50 MG TAB (VIMPAT) PO SCH ×2 (08:38→20:43)
[2019-07-11] MEDS: LACTOBACILLUS ACIDOPHILUS CAP (BACID) PO SCH ×4 (08:38→20:44)
[2019-07-11] MEDS: BACTRIM 160MG/800MG DS TAB PO SCH ×2 (08:38→20:44)
[2019-07-11] MEDS: ENOXAPARIN 40 MG/0.4 ML SYRINGE (J1650) SC SCH (08:39)
[2019-07-11 13:48] VITALS: BP 103/60
[2019-07-11] MEDS: RAMELTEON 8 MG TAB (ROZEREM) PO SCH (20:43)
[2019-07-11 22:00] VITALS: BP 134/87
[2019-07-12] MEDS: HYDROCORTISONE 10 MG TAB PO SCH (06:08)
[2019-07-12 06:40] VITALS: BP 103/62
[2019-07-12 07:24] LABS: HEMATOCRIT 33.8 % (42.0-52.0); HEMOGLOBIN 11.2 g/dl (13.5-17.5); MEAN CORPUSCULAR HEMOGLOBIN 31.1 pg (27.0-33.0); MEAN CORPUSCULAR HGB CONC 33.1 g/dl (32.0-36.5); MEAN CORPUSCULAR VOLUME 93.9 fl (80.0-96.0); PLATELET COUNT, AUTOMATED 129 10^3/uL (150-450); WHITE BLOOD COUNT 7.1 10^3/uL (4.0-10.0)
[2019-07-12 07:45] LABS: BLOOD UREA NITROGEN 16 MG/DL (7-18); CALCIUM LEVEL 8.4 MG/DL (8.5-10.1); CARBON DIOXIDE LEVEL 30 MEQ/L (21-32); CHLORIDE LEVEL 107 MEQ/L (98-107); CREATININE FOR GFR 0.82 MG/DL (0.70-1.30); GLOMERULAR FILTRATION RATE > 60.0 (>60); GLUCOSE, FASTING 85 MG/DL (70-100); MAGNESIUM LEVEL 1.7 MG/DL (1.8-2.4); POTASSIUM SERUM 3.6 MEQ/L (3.5-5.1); SODIUM LEVEL 144 MEQ/L (136-145)
[2019-07-12] MEDS: ENOXAPARIN 40 MG/0.4 ML SYRINGE (J1650) SC SCH (08:09)
[2019-07-12] MEDS: LACOSAMIDE 50 MG TAB (VIMPAT) PO SCH (08:09)
[2019-07-12] MEDS: BACTRIM 160MG/800MG DS TAB PO SCH (08:09)
[2019-07-12] MEDS: LACTOBACILLUS ACIDOPHILUS CAP (BACID) PO SCH (08:09)
[2019-07-12] MEDS ORDERED: CORT10TA PO (09:32)
[2019-07-12] MEDS ORDERED: INFLUENZA QUADRIVALENT PF VACCINE 0.5ML SYRINGE (90686) IM ONE (10:00)
--- NOTE | 2019-07-12 10:43 | DSES ---
DATE OF ADMISSION: 07/08/2019 DATE OF DISCHARGE: PRINCIPAL DIAGNOSES: 1. Seizures, probably from missed Vimpat dosing. 2. Severe sepsis, probably adrenal insufficiency. 3. Traumatic brain injury. At his baseline. HISTORY: Bari Bush missed some Vimpat doses admitted with seizures, found to be hypotensive and possibly septic. He was admitted for further treatment. HOSPITAL COURSE: His sepsis was treated with fluid resuscitation, empiric antibiotic therapy. His cultures all returned negative, and he was not discharged on antibiotic. He remained seizure free after intravenous Vimpat and baptism of his outpatient dosing. He has renal insufficiency, and his blood pressure responded to intravenous and then oral hydrocortisone. He is back on his baseline dose of that as well. He became a little hypernatremic, which improved by the day of discharge. Today, his sodium is 144. SIGNIFICANT LABS: Today, white count is 7.1, hemoglobin 11.2, platelets 129. Sodium 144, potassium 3.6, BUN 16, creatinine 0.8. DISPOSITION: Patient is discharged home in stable condition. Activity as tolerated. He will resume the medications he was taking prior to admission, which are; aspirin 81 mg daily, vitamin D 4000 units daily, Vimpat 200 mg twice a day, multivitamin, omeprazole 20 mg daily. Apparently, he is not taking cortisone as an outpatient, and he was just treated empirically and does not have this as an outpatient medication. Does not have adrenal insufficiency previously diagnosed. WITH HIS PRESENTATION, THERE IS CONCERN OF ADRENAL INSUFFICIENCY AND THIS WILL NEED TO BE WORKED UP BY HIS OUTPATIENT PROVIDER. We have no endocrinology on staff available for consultation for this and needs some outpatient workup. He will be discharged on hydrocortisone 20 mg twice a day until his workup is completed. ADDENDUM: I spoke with Bari Anguiano's primary care provider. We discussed the case. He is aware of the unresolved issue about the adrenal insufficiency, and will see him in the office and work this up.
== END 2019-07-12 10:50 | disposition home or self-care (01) | DRG 871 ==
LOC: EDBD 09:39 → M ED 09:39 → M ED INP 12:16 → M ICU 15:51 → M MS5PR 07-10 14:20
PROVIDERS: ADMIT General Practice; ATTEND Family Medicine
PROC: 3E043XZ Introduction of Vasopressor into Central Vein, Percutaneous Approach (ICD-10-PCS; principal; 2019-07-08)
DX: A41.9 Sepsis, unspecified organism (principal); R65.21 Severe sepsis with septic shock; J96.02 Acute respiratory failure with hypercapnia; E87.2 Acidosis; I69.954 Hemiplegia and hemiparesis following unspecified cerebrovascular disease affecting left non-dominant side; E27.2 Addisonian crisis; E46 Unspecified protein-calorie malnutrition; Z68.1 Body mass index [BMI] 19.9 or less, adult; G40.909 Epilepsy, unspecified, not intractable, without status epilepticus; E55.9 Vitamin D deficiency, unspecified; Z91.14 Patient's other noncompliance with medication regimen; Z79.82 Long term (current) use of aspirin; Z79.899 Other long term (current) drug therapy; R68.0 Hypothermia, not associated with low environmental temperature; H54.62 Unqualified visual loss, left eye, normal vision right eye; Z88.0 Allergy status to penicillin; Z88.8 Allergy status to other drugs, medicaments and biological substances; Z91.018 Allergy to other foods; R33.9 Retention of urine, unspecified

== ENCOUNTER → 2019-10-26 | Outpatient (CLI) | payer MEDICARE, MEDICAID ==
[~2019-10-26] MED LIST changes: +CORT10TA PO; +OMEP1CAP73 PO
--- NOTE | 2019-10-26 12:39 | REP ---
Chest x-ray: Sitting AP and lateral views. Three views total. History: Cough. Comparison chest x-ray: July 09, 2019. Findings: The patient is rotated to the left. Lungs are well inflated and clear. No infiltrate is seen. The pleural angles are sharp. Heart size is normal. Impression: No active disease. No infiltrate seen. Electronically Signed by Kurt Rhoades MD 10/26/2019 12:30 P
== END ==
LOC: M WUC 11:05
PROVIDERS: ATTEND Family Medicine
DX: R05 Cough (principal)

== ENCOUNTER 2019-10-30 11:55 | Emergency (ER) | payer MEDICARE, MEDICAID ==
[~2019-10-30] VITALS: Ht 172.7 cm; Wt 59.1 kg
[2019-10-30] MEDS ORDERED: SULF1TAB93 (12:07)
[2019-10-30] MEDS ORDERED: NS 1,000 ML IV ONE (12:45)
[2019-10-30 13:41] LABS: BASO % 0.3 % (0.0-1.0); EOS # 0.1 10^3/uL (0.0-0.5); HEMATOCRIT 42.7 % (42.0-52.0); HEMOGLOBIN 14.7 g/dl (13.5-17.5); MEAN CORPUSCULAR HGB CONC 34.4 g/dl (32.0-36.5); MEAN CORPUSCULAR VOLUME 92.8 fl (80.0-96.0); MONO # 0.5 10^3/uL (0.0-0.8); MONO % 6.9 % (0.0-5.0); NEUTROPHILS # 5.5 10^3/uL (1.5-8.5); NEUTROPHILS % 76.7 % (36.0-66.0); PLATELET COUNT, AUTOMATED 141 10^3/uL (150-450); WHITE BLOOD COUNT 7.1 10^3/uL (4.0-10.0)
[2019-10-30 14:01] LABS: ALBUMIN 3.7 GM/DL (3.2-5.2); ALT/SGPT 53 U/L (12-78); BILIRUBIN,DIRECT < 0.1 MG/DL (0.0-0.2); BILIRUBIN,TOTAL 0.4 MG/DL (0.2-1.0); CK-MB VALUE MASS 5.6 NG/ML (<3.6); CPK CREATINE PHOSPHOKINASE 102 U/L (39-308); LIPASE 166 U/L (73-393); MB/CK RELATIVE INDEX 5.49 (< OR =4); TOTAL PROTEIN 8.2 GM/DL (6.4-8.2); TROPONIN I < 0.02 NG/ML (< 0.10)
--- NOTE | 2019-10-30 14:05 | REP ---
PORTABLE CHEST X-RAY: Single view. HISTORY: Possible pneumonia. "acting differently". COMPARISON CHEST X-RAY: October 26, 2019. FINDINGS: The patient is rotated somewhat to the left. The arms are folded over the upper abdomen. The lungs are symmetrically aerated and free of infiltrate. The pleural angles are sharp. Cardiomediastinal silhouette is unremarkable and unchanged. IMPRESSION: No infiltrates seen. No active disease. Electronically Signed by Kurt Rhoades MD 10/30/2019 03:05 P
[2019-10-30] MEDS ORDERED: ISOVUE-370 76% 100ML VIAL (Q9967) As Ordered ONE (15:23)
[2019-10-30] MEDS ORDERED: MIRA3350 PO (16:46)
[2019-10-30] MEDS ORDERED: SENO8.6T10 PO (16:48)
--- NOTE | 2019-10-30 16:58 | REP ---
HISTORY: Abdominal pain. COMPARISON: 12/27/2018, a noncontrast enhanced exam. CONTRAST: 100 mL Isovue-370 The liver, gallbladder, spleen, pancreas, adrenal glands and kidneys are within normal limits. The abdominal aorta and periaortic regions are within normal limits. The bowel loops and their mesenteries are within normal limits. The colon is content filled. There is no free fluid or free air. CT PELVIS: The bowel loops and their mesenteries are within normal limits. The colon is content filled. There is a moderate to large amount of stool in the rectosigmoid bulb. There is no free fluid or free air. There is no pelvic mass or adenopathy. Bone window technique throughout the exam shows changes in the femoral heads suggestive of the possibility of avascular necrosis. The appearance of this is unchanged from the prior exam, however. IMPRESSION: 1. There is no evidence of acute disease. Chronic changes as described above. 2. Stool pattern as described above which should be correlated clinically for possible constipation. Electronically Signed by Frank Fulton DO 10/31/2019 07:34 A
--- NOTE | 2019-10-30 17:13 | REP ---
HISTORY: Lethargy. COMPARISON: 12/27/2018 CONTRAST: 100 mL Isovue-370 The mediastinum and pulmonary deshawn are essentially unchanged. There is no evidence of a mass or adenopathy. There is no free fluid or free air. The imaged osseous structures are within normal limits. Evaluation of the lung osorio show no significant changes from the prior exam. Scattered subsegmental atelectatic changes are suspected, status quo. No new abnormal nodules, masses or opacities have developed. IMPRESSION: CT findings, as described above, are within normal limits. There is no evidence of acute disease or significant change compared to the prior exam. Electronically Signed by Frank Fulton DO 10/31/2019 07:34 A
[2019-10-30 18:04] VITALS: BP 110/56
--- NOTE | 2019-11-01 09:52 | ECGEPIP ---
[facility] - ED Test Date: 2019-10-30 Pat Name: BLAIR NI Department: Room: - Gender: Male [employer] Applier: sisi : [id number] Requested By: ROBERTA Mendoza Order Number: [id number] Reading MD: Judd Horne Measurements Intervals [place] Rate: 59 P: 76 RI: 207 QRS: -20 QRSD: 120 T: 75 QT: 399 QTc: 396 Interpretive Statements SINUS BRADYCARDIA RATE CHANGE COMPARED TO 07/08/19 Electronically Signed on 11-01-2019 9:52:08 EDT by Judd Horne
== END 2019-10-30 18:18 | disposition home or self-care (01) ==
LOC: M ED 11:55
DX: K59.00 Constipation, unspecified (principal); Z86.73 Personal history of transient ischemic attack (TIA), and cerebral infarction without residual deficits; R56.9 Unspecified convulsions; E55.9 Vitamin D deficiency, unspecified; E27.1 Primary adrenocortical insufficiency; Z87.440 Personal history of urinary (tract) infections; Z91.018 Allergy to other foods; Z88.0 Allergy status to penicillin; Z88.1 Allergy status to other antibiotic agents; Z88.8 Allergy status to other drugs, medicaments and biological substances
CPT/HCPCS: 51701; 71045; 71260; 74177; 80047; 80076; 81001; 82550; 82553; 83605; 83690; 84484; 85025; 87040; 93005; 93041; 96360; 99284; Q9967

== ENCOUNTER 2019-11-18 13:02 | Inpatient (IN) | payer MEDICARE, MEDICAID ==
[~2019-11-18] VITALS: Ht 172.7 cm; Wt 53.2 kg
[2019-11-18] MEDS: MIRALAX *UNIT DOSE* 17GM PACKET PO SCH (09:00)
[~2019-11-18 13:02] MED LIST changes: +MIRA3350 PO; +SENO8.6T10 PO; +SULF1TAB93
[2019-11-18 13:47] LABS: VENOUS BASE EXCESS 3.4 (-2.0-2.0); VENOUS HCO3 31.4 MEQ/L (23.0-27.0); VENOUS O2 SATURATION 89.3 % (60.0-80.0); VENOUS PARTIAL PRESSURE CO2 62.4 mmHg (38.0-50.0); VENOUS PARTIAL PRESSURE O2 61.9 mmHg (30.0-50.0); VENOUS PH 7.319 UNITS (7.330-7.430); VENOUS STANDARD HCO3 27.3 MEQ/L; VENOUS TOTAL CO2 33.3 MEQ/L (24.0-28.0)
[2019-11-18 13:50] LABS: HEMATOCRIT 40.1 % (42.0-52.0); HEMOGLOBIN 13.4 g/dl (13.5-17.5); MEAN CORPUSCULAR HEMOGLOBIN 31.4 pg (27.0-33.0); MEAN CORPUSCULAR HGB CONC 33.4 g/dl (32.0-36.5); MEAN CORPUSCULAR VOLUME 93.9 fl (80.0-96.0); PLATELET COUNT, AUTOMATED 144 10^3/uL (150-450); RED BLOOD COUNT 4.27 10^6/uL (4.30-6.10); WHITE BLOOD COUNT 2.3 10^3/uL (4.0-10.0)
[2019-11-18] MEDS ORDERED: NS 1,600 ML in IV 1 EA IV ONE (14:00)
[2019-11-18 14:21] LABS: ATYPICAL LYMPH 3 % (0-5); BASOPHILS 1 % (0-1); EOSINOPHILS 4 % (0-3); LYMPHOCYTES 46 % (16-44); MONOCYTES 15 % (0-5); NEUTROPHILS 31 % (28-66)
[2019-11-18 14:22] LABS: PLATELET ESTIMATE NORMAL (NORMAL)
[2019-11-18 14:23] LABS: ALT/SGPT 45 U/L (12-78); AMYLASE 50 U/L (25-115); BILIRUBIN,DIRECT < 0.1 MG/DL (0.0-0.2); BILIRUBIN,TOTAL 0.2 MG/DL (0.2-1.0); BLOOD UREA NITROGEN 20 MG/DL (7-18); C REACTIVE PROTEIN QUANTITATIV 5.38 MG/DL (0.00-0.30); CARBON DIOXIDE LEVEL 31 MEQ/L (21-32); CHLORIDE LEVEL 103 MEQ/L (98-107); CK-MB VALUE MASS 6.4 NG/ML (<3.6); CPK CREATINE PHOSPHOKINASE 237 U/L (39-308); CREATININE FOR GFR 0.82 MG/DL (0.70-1.30); GLOMERULAR FILTRATION RATE > 60.0 (>60); GLUCOSE, FASTING 83 MG/DL (70-100); POTASSIUM SERUM 3.8 MEQ/L (3.5-5.1); SODIUM LEVEL 140 MEQ/L (136-145); TOTAL PROTEIN 7.3 GM/DL (6.4-8.2); TROPONIN I < 0.02 NG/ML (< 0.10)
[2019-11-18] MEDS ORDERED: HM V4000 PO (14:32)
[2019-11-18] MEDS ORDERED: MIRA3350 PO (14:32)
[2019-11-18] MEDS ORDERED: SENN1TAB41 PO (14:32)
[2019-11-18] MEDS ORDERED: OMEP-221 PO (14:32)
[2019-11-18] MEDS ORDERED: HYDR-4513 PO (14:32)
[2019-11-18 14:35] LABS: INR 0.98; PROTHROMBIN TIME 12.7 SECONDS (11.8-14.0)
[2019-11-18 14:43] LABS: MONO SCRN NEGATIVE (NEGATIVE)
--- NOTE | 2019-11-18 14:44 | REP ---
CT BRAIN WITHOUT CONTRAST: CT brain performed without IV contrast and compared to a prior study of 07/08/2019. Coronal reconstruction images are performed. Once again, there are atrophic changes which appear stable. Old left frontal infarct is again noted with encephalomalacia in that region. Old right periventricular infarct is noted. There is no midline shift or mass effect. There is no acute hemorrhage. There is no extra-axial fluid collection. There are mild vascular calcifications in the carotid siphons. Visualized mastoid air cells and paranasal sinuses are clear. IMPRESSION: Stable chronic atrophy and ischemic changes. No acute intracranial process is identified. Electronically Signed by Beau Wells MD 11/18/2019 04:23 P
[2019-11-18 14:53] LABS: INFLUENZA A AMPLIFICATION NEGATIVE (NEGATIVE); INFLUENZA B AMPLIFICATION NEGATIVE (NEGATIVE)
[2019-11-18 15:16] LABS: APPEARANCE, URINE HAZY (CLEAR); BACTERIA, URINE AUTO NEGATIVE (NEGATIVE); BILIRUBIN, URINE AUTO NEGATIVE (NEGATIVE); BLOOD, URINE BLOOD NEGATIVE (NEGATIVE); COLOR, URINE YELLOW (YELLOW); GLUCOSE, URINE (UA) AUTO NEGATIVE (NEGATIVE); KETONE, URINE AUTO NEGATIVE (NEGATIVE); LEUKOCYTE ESTERASE, URINE AUTO NEGATIVE (NEGATIVE); MUCUS, URINE SMALL (NEGATIVE); NITRITE, URINE AUTO NEGATIVE (NEGATIVE); PROTEIN, URINE AUTO NEGATIVE (NEGATIVE); RBC, URINE AUTO 4 /HPF (0-3); SPECIFIC GRAVITY URINE AUTO 1.021 (1.002-1.035); SQUAMOUS EPITHELIAL CELL UR AU 0 /HPF (0-6); UROBILINOGEN, URINE AUTO 0.2 mg/dL (0.0-2.0); WBC, URINE AUTO 2 /HPF (0-3)
--- NOTE | 2019-11-18 15:18 | REP ---
CHEST, TWO VIEWS: Two views of the chest are performed and compared to a prior study of 10/30/2019 as well as other prior exams. There is linear atelectatic change in the left base. No acute infiltrate is seen. The heart is normal in size and the mediastinal silhouette is unchanged. IMPRESSION: No acute infiltrate. Electronically Signed by Beau Wells MD 11/18/2019 04:25 P
[2019-11-18] MEDS ORDERED: ISOVUE-370 76% 100ML VIAL As Ordered ONE (15:19)
[2019-11-18] MEDS ORDERED: cefTRIAXone SOD 1 GM in D5W MINI-BAG PLUS 50 ML IV ONE (16:30)
[2019-11-18] MEDS ORDERED: DOXYCYCLINE HYCLATE 100 MG in D5W MINI-BAG PLUS 100 ML IV ONE (16:30)
[2019-11-18] MEDS ORDERED: HYDROCORTISONE 10 MG TAB PO SCH (17:15)
[2019-11-18] MEDS ORDERED: ALBUTEROL 90 MCG/ACT 8GM HFA INHALER INH PRN (17:15)
--- NOTE | 2019-11-18 17:34 | HPEPDOC ---
General Date of Admission 11/18/19 Date of Service: Nov 18, 2019 Chief Complaint The patient is a 49-year-old male admitted with a reason for visit of Confusion. Source: [facility] Caregiver/Aid Exam Limitations: Physical impairment, Mild cognitive slowing Timing/Duration: 24 hours Severity: Moderate History of Present Illness Patient is 49 years old male with past history of traumatic brain injury, metabolic encephalopathy, septic shock secondary, adrenal insufficiency, cognitive and physical impairments, nonverbal at baseline presented hospital with increased confusion. His caregiver stated that patient has increased confusion compared to his baseline. The caregiver didn't see any seizure-like activities. Patient didn't have any nausea, vomiting, diarrhea or dysuria. In emergency room patient was found to have acute hypoxemic respiratory failure, CTA showed LLL opacities suspicious for infiltrate. Also patient was found to have leukopenia. Home Medications Scheduled Aspirin (Aspirin EC) 81 Mg Tab, 81 MG PO BID, (Reported) Cholecalciferol (Vitamin D3) (Vitamin D3) 100 Mcg (4000 Unit) Capsule, 4,000 UNIT PO DAILY, (Reported) Hydrocortisone (Hydrocortisone) 10 Mg Tablet, 10 MG PO ONCE, (Reported) OLD RX, FAMILY GAVE TO PATIENT DUE TO SYMPTOMS Lacosamide (Vimpat) 200 Mg Tab, 200 MG PO BID, (Reported) Multivitamins (Thera M Plus Tablet) 1 Tab Tab, 1 TAB PO DAILY, (Reported) Omeprazole (Omeprazole) 40 Mg Capsule.dr, 40 MG PO DAILY, (Reported) Polyethylene Glycol 3350 (Miralax) 119 Gm Powder, 17 GM PO BID, (Reported) Sennosides/Docusate Sodium (Senna-S Tablet) 1 Each Tablet, 1 TAB PO DAILY, (Reported) Allergies Coded Allergies: Penicillins (Verified Allergy, Unknown, 11/23/18) ciprofloxacin (Verified Allergy, Unknown, 11/23/18) phenytoin (Verified Allergy, Unknown, 11/23/18) Hydrolyzed Eads Oil (Verified Adverse Reaction, Mild, diarrhea , 07/08/19) Past Medical History Medical History 1. Recurrent seizures. 2. Septic shock secondary to urinary tract infection (UTI). 3. Metabolic encephalopathy. 4. Adrenal insufficiency. 5. Acute adrenal crisis and presence of infection with hypovolemia. 6. History of traumatic brain injury at the age of 13 with cognitive and physical impairment. 7. Chronic hypothermia. 8. Seizure disorder. 9. History of CVA and left eye blindness. 10. Paralyzed left upper and lower extremities. 11. Vitamin D deficiency. 12. Recurrent urinary tract infection (UTI). 13. 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 Surgical History 1. Tracheostomy. 2. Abdominal surgery. 3. Left leg surgery. 4. Status post percutaneous endoscopic gastrostomy. Social History * Smoker: Denies Alcohol: Denies Drugs: denies A-FIB/CHADSVASC A-FIB History Current/History of A-Fib/PAF?: No Current PO Anticoag Therapy: No Review of Systems Constitutional: Reports: Weakness; Denies: Chills, Fever Eyes: Reports: Pain ENT: Denies: Head Aches Skin: Denies: Rash Pulmonary: Reports: Dyspnea Cardiovascular: Denies: Chest Pain, Palpitations Gastrointestinal: Denies: Nausea, Vomiting Genitourinary: Denies: Dysuria, Frequency Hematologic: Denies: Bruising Endocrine: Denies: Polydipsia, Polyphagia Musculoskeletal: Denies: Neck Pain Neurological: Denies: Weakness Psych: Reports: Mood Normal Physical Examination General Exam: Positive: Alert, Moderate Distress Eye Exam: Positive: PERRLA ENT Exam: Positive: Atraumatic Neck Exam: Positive: Supple; Negative: JVD Chest Exam: Positive: Rales Heart Exam: Positive: Rate Normal Abdomen Exam: Positive: Normal bowel sounds Extremity Exam: Negative: Clubbing, Cyanosis Skin Exam: Positive: Nl turgor and temperature Neuro Exam: Positive: Normal Tone, Sensation Intact Psych Exam: Positive: Other (patient has significant cognitive impairment at baseline) Vital Signs Vital Signs Date Time Temp Pulse Resp B/P (MAP) Pulse Ox O2 Delivery O2 Flow Rate FiO2 11/18/19 14:20 11/18/19 13:40 Room Air 11/18/19 13:02 96.8 84 16 89 Laboratory Data Labs 24H Laboratory Tests 2 11/18/19 13:32: Neutrophils (%) (Auto) , Neutrophils # (Auto) , Nucleated Red Blood Cells % (auto) 0.0, Neutrophils 31, Lymphocytes (Manual) 46H, Monocytes (Manual) 15H, Eosinophils (Manual) 4H, Basophils (Manual) 1, Atypical Lymphocytes 3, Red Blood Cell Morphology NORMAL, Platelet Estimate NORMAL, Blood Gas Bicarbonate Standard 27.3, Venous Blood pH 7.319L, Venous Blood Partial Pressure CO2 62.4H, Venous Blood Partial Pressure O2 61.9H, Venous Blood Total Carbon Dioxide 33.3H, Venous Blood HCO3 31.4H, Venous Blood Oxygen Saturation 89.3H, Venous Blood Base Excess 3.4H, Anion Gap 6L, Glomerular Filtration Rate > 60.0, Lactic Acid Level 1.6, Calcium Level 9.0, Total Bilirubin 0.2, Direct Bilirubin < 0.1, Aspartate Amino Transf (AST/SGOT) 36, Alanine Aminotransferase (ALT/SGPT) 45, Alkaline Phosphatase 88, Total Creatine Kinase 237, Creatine Kinase MB 6.4H, Creatine Kinase MB Relative Index 2.70, Troponin I < 0.02, C-Reactive Protein, Quantitative 5.38H, Total Protein 7.3, Albumin 3.0L, Albumin/Globulin Ratio 0.70L, Amylase Level 50, Thyroid Stimulating Hormone (TSH) 5.860H, Monoscreen NEGATIVE 11/18/19 13:36: Prothrombin Time 12.7, Prothromb Time International Ratio 0.98, Activated Partial Thromboplast Time 36.0 11/18/19 13:55: Bedside Glucose (Misc Panel) 84 11/18/19 14:01: Coronavirus (COVID-19)(PCR) NEGATIVE, Influenza Type A (RT-PCR) NEGATIVE, Influenza Type B (RT-PCR) NEGATIVE 11/18/19 14:50: Urine Color YELLOW, Urine Appearance HAZY, Urine pH 6.0, Urine Specific [place] 1.021, Urine Protein NEGATIVE, Urine Glucose (Auto)(UA) NEGATIVE, Urine Ketones (Auto) NEGATIVE, Urine Blood NEGATIVE, Urine Nitrite NEGATIVE, Urine Bilirubin NEGATIVE, Urine Urobilinogen 0.2, Urine Leukocyte Esterase (Auto) NEGATIVE, Urine WBC (Auto) 2, Urine RBC (Auto) 4H, Urine Hyaline Casts (Auto) 0, Urine Bacteria (Auto) NEGATIVE, Urine Squamous Epithelial Cells 0, Urine Mucus (Auto) SMALL, Urine Sperm (Auto) CBC/BMP Laboratory Tests 11/18/19 13:32 Microbiology Microbiology 11/18/19 Urine Culture, Received Pending 11/18/19 Blood Culture, Received Pending 11/18/19 Blood Culture, Received Pending Assessment/Plan Patient is 49 years old male with past history of traumatic brain injury, metabolic encephalopathy, septic shock secondary, adrenal insufficiency, cognitive and physical impairments, nonverbal at baseline presented hospital with increased confusion. His caregiver stated that patient has increased confusion compared to his baseline. The caregiver didn't see any seizure-like activities. Patient didn't have any nausea, vomiting, diarrhea or dysuria. In emergency room patient was found to have acute hypoxemic respiratory failure, CTA showed LLL opacities suspicious for infiltrate. Also patient was found to have leukopenia. Problems (1) Sepsis Status: Acute Problem Text: Upon admission patient has dyspnea, leukopenia Most likely likely secondary to community-acquired pneumonia IV fluid Ceftriaxone, doxycycline Await blood culture, urine culture (2) Pneumonia Status: Acute Problem Text: Most likely community acquired pneumonia CTA showed LLL opacities Continue antibiotic therapy Albuterol when necessary (3) Constipation Status: Chronic Problem Text: Continue MiraLAX (4) Seizure Onset Date: 07/25/2014 Status: Chronic Problem Text: We will check level of Lacosamide (5) Adrenal insufficiency Status: Acute Problem Text: Patient has a chronic adrenal insufficiency I will increase the dose of hydrocortisone 100 mg every 6 hours due to sepsis. Plan / VTE VTE Prophylaxis Ordered?: Yes JUSTIN GTZ DO Nov 18, 2019 17:34
[2019-11-18] MEDS: HYDROCORTISONE 100 MG/2 ML VIAL (J1720 PER 1) IV SCH (18:00)
[2019-11-18 18:30] VITALS: BP 109/78
[2019-11-18] MEDS: LACOSAMIDE 50 MG TAB (VIMPAT) PO SCH (19:59)
[2019-11-18] MEDS: HEPARIN SOD (PORCINE) 5000UNITS/ML VIAL (J1644 PER 1000UNITS) SC SCH (19:59)
[2019-11-18] MEDS: ASPIRIN 81 MG ENTERIC TAB PO SCH (19:59)
[2019-11-18] MEDS: NS 1,000 ML IV SCH (19:59)
[2019-11-18 22:10] VITALS: BP 114/74
[2019-11-19] MEDS: HYDROCORTISONE 100 MG/2 ML VIAL (J1720 PER 1) IV SCH ×2 (00:26→05:40)
[2019-11-19] MEDS: NS 1,000 ML IV SCH ×2 (05:40→12:36)
[2019-11-19] MEDS: DOXYCYCLINE HYCLATE 100 MG in D5W MINI-BAG PLUS 100 ML IV SCH ×2 (05:40→18:11)
[2019-11-19 06:01] VITALS: BP 88/54
[2019-11-19] MEDS ORDERED: NS 500 ML IV ONE (06:30)
--- NOTE | 2019-11-19 07:28 | REP ---
CT ANGIOGRAM OF THE CHEST: TECHNIQUE: Axial contrast enhanced images from the thoracic inlet to the upper abdomen using 100 mL Isovue 370 intravenous contrast material with multiplanar reformations. COMPARISON: CT 10/30/2019 There are scattered patchy infiltrates of both lower lungs. There is no thoracic aortic aneurysm or dissection. There is no pulmonary embolism. The heart is normal in size. There is no pleural or pericardial effusion. There is no mediastinal, hilar or chest wall lymphadenopathy. There are degenerative changes of the spine. IMPRESSION: Scattered patchy nonspecific infiltrates in the lower lungs. No evidence of pulmonary embolism. Electronically Signed by Beau Wells MD 11/19/2019 04:50 P
[2019-11-19 07:52] LABS: HEMATOCRIT 35.2 % (42.0-52.0); MEAN CORPUSCULAR HEMOGLOBIN 31.3 pg (27.0-33.0); MEAN CORPUSCULAR HGB CONC 34.1 g/dl (32.0-36.5); MEAN CORPUSCULAR VOLUME 91.9 fl (80.0-96.0); PLATELET COUNT, AUTOMATED 124 10^3/uL (150-450); RED BLOOD COUNT 3.83 10^6/uL (4.30-6.10); WHITE BLOOD COUNT 2.7 10^3/uL (4.0-10.0)
[2019-11-19 08:13] LABS: BLOOD UREA NITROGEN 21 MG/DL (7-18); CALCIUM LEVEL 8.5 MG/DL (8.5-10.1); CARBON DIOXIDE LEVEL 29 MEQ/L (21-32); CHLORIDE LEVEL 105 MEQ/L (98-107); CREATININE FOR GFR 0.91 MG/DL (0.70-1.30); GLOMERULAR FILTRATION RATE > 60.0 (>60); GLUCOSE, FASTING 153 MG/DL (70-100); MAGNESIUM LEVEL 1.9 MG/DL (1.8-2.4); SODIUM LEVEL 141 MEQ/L (136-145)
[2019-11-19] MEDS: MIRALAX *UNIT DOSE* 17GM PACKET PO SCH (09:00)
[2019-11-19] MEDS: HEPARIN SOD (PORCINE) 5000UNITS/ML VIAL (J1644 PER 1000UNITS) SC SCH ×2 (09:52→21:18)
[2019-11-19] MEDS: SENOKOT S TAB PO SCH (09:52)
[2019-11-19] MEDS: LACOSAMIDE 50 MG TAB (VIMPAT) PO SCH ×2 (09:52→21:18)
[2019-11-19] MEDS: ASPIRIN 81 MG ENTERIC TAB PO SCH ×2 (09:52→21:18)
[2019-11-19 10:00] VITALS: BP 74/44
--- NOTE | 2019-11-19 10:03 | ECGEPIP ---
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
--- NOTE | 2019-11-19 10:38 | IPNPDOC ---
Text Note Date of Service The patient was seen on 11/19/19. NOTE Subjective: No any acute events overnight, in the morning patient was hypoten sive 70/30. Objective: VITAL SIGNS: Please see below. GENERAL: awake, NAD HEENT: NCAT, anicteric sclera, SANDRA NECK: supple, no JVD CARDIOVASCULAR EXAMINATION: NS1S2, regular rate/rhythm RESPIRATORY EXAMINATION: Mild rhonchi over left lung field ABDOMINAL EXAMINATION: positive bowel sounds x 4, NT EXTREMITIES: no cyanosis, clubbing, edema SKIN: warm, no rashes. NEUROLOGICAL EXAMINATION: No nuchal rigidity, nonverbal, left lateral eye deviation Assessment/Plan Patient is 49 years old male with past history of traumatic brain injury, metabolic encephalopathy, septic shock secondary, adrenal insufficiency, cognitive and physical impairments, nonverbal at baseline presented hospital with increased confusion. His caregiver stated that patient has increased confusion compared to his baseline. The caregiver didn't see any seizure-like activities. Patient didn't have any nausea, vomiting, diarrhea or dysuria. In emergency room patient was found to have acute hypoxemic respiratory failure, CT A showed LLL opacities suspicious for infiltrate. Also patient was found to have leukopenia. Problems (1) Sepsis Upon admission patient has dyspnea, leukopenia Most likely likely secondary to community-acquired pneumonia IV fluid Ceftriaxone, doxycycline Await blood culture, urine culture (2) Pneumonia Most likely community acquired pneumonia CTA showed LLL opacities Continue antibiotic therapy Albuterol when necessary (3) Constipation Continue MiraLAX when necessary (4) Seizure will check level of Lacosamide (5) Adrenal insufficiency Patient has a chronic adrenal insufficiency. Patient hypotensive in the morning I will increase the dose of hydrocortisone to 150 mg every 6 hours due to sepsis. I will add fludrocortisone by mouth VS,Fishbone, I+O VS, Fishbone, I+O Laboratory Tests 11/18/19 13:32 11/19/19 07:42 Vital Signs Date Time Temp Pulse Resp B/P (MAP) Pulse Ox O2 Delivery O2 Flow Rate FiO2 11/19/19 10:00 74/44 (54) 11/19/19 06:30 92 19 95 Nasal Cannula 3.0 11/19/19 06:01 97.8 I&O- Last 24 Hours up to 6 AM 11/19/19 05:59 Intake Total 1715 ml Balance 1715 ml JUSTIN GTZ DO Nov 19, 2019 10:38
[2019-11-19] MEDS ORDERED: D5W/0.9% SODIUM CHLORIDE 1,000 ML IV ONE (10:45)
[2019-11-19] MEDS: FLUDROCORTISONE ACETATE 0.1 MG TAB PO SCH (10:46)
[2019-11-19 12:00] VITALS: BP 84/58
[2019-11-19] MEDS ORDERED: HYDROCORTISONE 100 MG/2 ML VIAL (J1720 PER 1) IV SCH (12:00)
[2019-11-19 14:00] VITALS: BP 95/43
[2019-11-19] MEDS: cefTRIAXone SOD 1 GM in D5W MINI-BAG PLUS 50 ML IV SCH (17:15)
[2019-11-19 18:00] VITALS: BP 94/58
[2019-11-19] MEDS: HYDROCORTISONE IV SCH (18:11)
[2019-11-19 22:00] VITALS: BP 98/54
[2019-11-20] MEDS: HYDROCORTISONE IV SCH ×3 (02:10→11:30)
[2019-11-20] MEDS: NS 1,000 ML IV SCH ×2 (02:10→11:30)
[2019-11-20] MEDS: DOXYCYCLINE HYCLATE 100 MG in D5W MINI-BAG PLUS 100 ML IV SCH ×2 (05:45→17:01)
[2019-11-20 06:00] VITALS: BP 102/54
[2019-11-20] MEDS: SENOKOT S TAB PO SCH (08:04)
[2019-11-20] MEDS: ASPIRIN 81 MG ENTERIC TAB PO SCH ×2 (08:04→20:37)
[2019-11-20] MEDS: FLUDROCORTISONE ACETATE 0.1 MG TAB PO SCH (08:04)
[2019-11-20] MEDS: MIRALAX *UNIT DOSE* 17GM PACKET PO SCH (08:05)
[2019-11-20] MEDS: HEPARIN SOD (PORCINE) 5000UNITS/ML VIAL (J1644 PER 1000UNITS) SC SCH ×2 (08:05→20:37)
[2019-11-20] MEDS: LACOSAMIDE 50 MG TAB (VIMPAT) PO SCH ×2 (08:05→20:37)
[2019-11-20 08:25] LABS: HEMATOCRIT 31.9 % (42.0-52.0); HEMOGLOBIN 11.1 g/dl (13.5-17.5); MEAN CORPUSCULAR HEMOGLOBIN 32.2 pg (27.0-33.0); MEAN CORPUSCULAR HGB CONC 34.8 g/dl (32.0-36.5); MEAN CORPUSCULAR VOLUME 92.5 fl (80.0-96.0); PLATELET COUNT, AUTOMATED 125 10^3/uL (150-450); RED BLOOD COUNT 3.45 10^6/uL (4.30-6.10); WHITE BLOOD COUNT 3.6 10^3/uL (4.0-10.0)
[2019-11-20 08:53] LABS: BLOOD UREA NITROGEN 21 MG/DL (7-18); CALCIUM LEVEL 8.7 MG/DL (8.5-10.1); CARBON DIOXIDE LEVEL 27 MEQ/L (21-32); CHLORIDE LEVEL 112 MEQ/L (98-107); CREATININE FOR GFR 0.76 MG/DL (0.70-1.30); GLOMERULAR FILTRATION RATE > 60.0 (>60); GLUCOSE, FASTING 116 MG/DL (70-100); POTASSIUM SERUM 3.7 MEQ/L (3.5-5.1); SODIUM LEVEL 145 MEQ/L (136-145)
[2019-11-20 09:07] LABS: ATYPICAL LYMPH 4 % (0-5); LYMPHOCYTES 9 % (16-44); MONOCYTES 2 % (0-5); NEUTROPHILS 85 % (28-66)
[2019-11-20 09:08] LABS: PLATELET ESTIMATE DECREASED (NORMAL)
[2019-11-20 14:00] VITALS: BP 108/59
[2019-11-20] MEDS: cefTRIAXone SOD 1 GM in D5W MINI-BAG PLUS 50 ML IV SCH (16:17)
--- NOTE | 2019-11-20 16:21 | IPNPDOC ---
Text Note Date of Service The patient was seen on 11/20/19. NOTE Subjective: No any acute events overnight. His blood pressure improved, patient was afebrile. No diarrhea or dysuria Objective: VITAL SIGNS: Please see below. GENERAL: awake, NAD HEENT: NCAT, anicteric sclera, SANDRA NECK: supple, no JVD CARDIOVASCULAR EXAMINATION: NS1S2, regular rate/rhythm RESPIRATORY EXAMINATION: Mild rhonchi over left lung field ABDOMINAL EXAMINATION: positive bowel sounds x 4, NT EXTREMITIES: no cyanosis, clubbing, edema SKIN: warm, no rashes. NEUROLOGICAL EXAMINATION: No nuchal rigidity, nonverbal, left lateral eye deviation Assessment/Plan Patient is 49 years old male with past history of traumatic brain injury, metabolic encephalopathy, septic shock secondary, adrenal insufficiency, cognitive and physical impairments, nonverbal at baseline presented hospital with increased confusion. His caregiver stated that patient has increased confusion compared to his baseline. The caregiver didn't see any seizure-like activities. Patient didn't have any nausea, vomiting, diarrhea or dysuria. In emergency room patient was found to have acute hypoxemic respiratory failure, CTA showed LLL opacities suspicious for infiltrate. Also patient was found to have leukopenia. Problems (1) Sepsis Upon admission patient has dyspnea, leukopenia Most likely likely secondary to community-acquired pneumonia IV fluid Ceftriaxone, doxycycline blood culture, urine culture negative (2) Pneumonia Most likely community acquired pneumonia CTA showed LLL opacities Continue antibiotic therapy Albuterol when necessary (3) Constipation Continue MiraLAX when necessary (4) Seizure will check level of Lacosamide (5) Adrenal insufficiency Patient has a chronic adrenal insufficiency. I increased the dose of hydrocortisone due to hypotension secondary to sepsis on 11/19/19 I will taper down hydrocortisone to 100mg every 8 hours. I added fludrocortisone by mouth on 11/19/19 VS,Fishbone, I+O VS, Fishbone, I+O Laboratory Tests 11/20/19 08:11 Vital Signs Date Time Temp Pulse Resp B/P (MAP) Pulse Ox O2 Delivery O2 Flow Rate FiO2 11/20/19 14:00 97.5 70 20 108/59 (75) 96 Room Air 11/20/19 09:00 1.0 I&O- Last 24 Hours up to 6 AM 11/20/19 05:59 Intake Total 752 ml Balance 752 ml DROZHZHIN,JUSTIN DO Nov 20, 2019 16:21
[2019-11-20] MEDS: HYDROCORTISONE 100 MG/2 ML VIAL (J1720 PER 1) IV SCH (20:37)
[2019-11-20 20:45] VITALS: BP 118/58
[2019-11-21] MEDS: HYDROCORTISONE 100 MG/2 ML VIAL (J1720 PER 1) IV SCH (03:48)
[2019-11-21] MEDS: DOXYCYCLINE HYCLATE 100 MG in D5W MINI-BAG PLUS 100 ML IV SCH (05:25)
[2019-11-21 05:33] VITALS: BP 118/73
[2019-11-21] MEDS: LACOSAMIDE 50 MG TAB (VIMPAT) PO SCH (08:39)
[2019-11-21] MEDS: ASPIRIN 81 MG ENTERIC TAB PO SCH (08:39)
[2019-11-21] MEDS: FLUDROCORTISONE ACETATE 0.1 MG TAB PO SCH (08:39)
[2019-11-21] MEDS: SENOKOT S TAB PO SCH (08:39)
[2019-11-21] MEDS: MIRALAX *UNIT DOSE* 17GM PACKET PO SCH (08:40)
[2019-11-21] MEDS: HEPARIN SOD (PORCINE) 5000UNITS/ML VIAL (J1644 PER 1000UNITS) SC SCH (08:40)
[2019-11-21] MEDS ORDERED: OMEPRAZOLE 20 MG CAP PO SCH (09:00)
[2019-11-21] MEDS ORDERED: HYDR20TA17 PO (12:52)
[2019-11-21] MEDS ORDERED: DOXY-350 PO (12:52)
[2019-11-21] MEDS ORDERED: CEFD300CAP PO (12:52)
[2019-11-21] MEDS ORDERED: FLUD0.1T PO (12:52)
[2019-11-21] MEDS ORDERED: HYDROCORTISONE 10 MG TAB PO SCH (14:00)
--- NOTE | 2019-11-21 18:16 | DS.PDOC ---
Discharge Summary General Date of Admission Nov 18, 2019 at 16:55 Date of Discharge 11/21/19 Discharge Summary PROCEDURES PERFORMED DURING STAY: [None]. ADMITTING DIAGNOSES: Sepsis Pneumonia Constipation Seizure Adrenal insufficiency DISCHARGE DIAGNOSES: Sepsis Pneumonia Constipation Seizure Adrenal insufficiency COMPLICATIONS/CHIEF COMPLAINT: Leukopenia Pneumonia Seizure. HISTORY OF PRESENT ILLNESS: Patient is 49 years old male with past history of traumatic brain injury, metabolic encephalopathy, septic shock secondary, adrenal insufficiency, cognitive and physical impairments, nonverbal at baseline presented hospital with increased confusion. His caregiver stated that patient has increased confusion compared to his baseline. The caregiver didn't see any seizure-like activities. Patient didn't have any nausea, vomiting, diarrhea or dysuria. In emergency room patient was found to have acute hypoxemic respiratory failure, CTA showed LLL opacities suspicious for infiltrate. Also patient was found to have leukopenia HOSPITAL COURSE: During hospital stay following issues addressed Problems (1) Sepsis Upon admission patient has dyspnea, leukopenia Most likely likely secondary to community-acquired pneumonia Ceftriaxone, doxycycline blood culture negative, urine culture negative (2) Pneumonia Most likely community acquired pneumonia CTA showed LLL opacities Patient received antibiotic therapy Albuterol when necessary (3) Constipation Continue MiraLAX when necessary Adrenal insufficiency Patient has a chronic adrenal insufficiency. Patient hypotensive in the morning I increased the dose of hydrocortisone to 150 mg every 6 hours due to sepsis. I added fludrocortisone by mouth. Patient discharged with hydrocortisone taper DISCHARGE MEDICATIONS: Please see below. ALLERGIES: Please see below. PHYSICAL EXAMINATION ON DISCHARGE: VITAL SIGNS: Please see below. GENERAL: awake, NAD HEENT: NCAT, anicteric sclera, SANDRA NECK: supple, no JVD CARDIOVASCULAR EXAMINATION: NS1S2, regular rate/rhythm RESPIRATORY EXAMINATION: Mild rhonchi over left lung field ABDOMINAL EXAMINATION: positive bowel sounds x 4, NT EXTREMITIES: no cyanosis, clubbing, edema SKIN: warm, no rashes. NEUROLOGICAL EXAMINATION: No nuchal rigidity, nonverbal, left lateral eye deviation LABORATORY DATA: Please see below. IMAGING: CT ANGIOGRAM OF THE CHEST: TECHNIQUE: Axial contrast enhanced images from the thoracic inlet to the upper abdomen using 100 mL Isovue 370 intravenous contrast material with multiplanar reformations. COMPARISON: CT 10/30/2019 There are scattered patchy infiltrates of both lower lungs. There is no thoracic aortic aneurysm or dissection. There is no pulmonary embolism. The heart is normal in size. There is no pleural or pericardial effusion. There is no mediastinal, hilar or chest wall lymphadenopathy. There are degenerative changes of the spine. IMPRESSION: Scattered patchy nonspecific infiltrates in the lower lungs. No evidence of pulmonary embolism. PROGNOSIS: Fair ACTIVITY: [As tolerated]. DIET: Regular DISPOSITION: 01 Home, Self-Care. ITEMS TO FOLLOWUP ON ON OUTPATIENT: With PCP DISCHARGE CONDITION: [Stable]. TIME SPENT ON DISCHARGE: Greater than 20 minutes. Vital Signs/I&Os Vital Signs Date Time Temp Pulse Resp B/P (MAP) Pulse Ox O2 Delivery O2 Flow Rate FiO2 11/21/19 05:33 97.9 62 17 118/73 (88) 96 Room Air 11/20/19 09:00 1.0 I&O- Last 24 Hours up to 6 AM 11/21/19 05:59 Intake Total 2290 ml Output Total 0 ml Balance 2290 ml Microbiology Microbiology 11/18/19 Urine Culture - Final, Complete 11/18/19 Blood Culture - Preliminary, Resulted No Growth after 72 hours. All specime... 11/18/19 Blood Culture - Preliminary, Resulted No Growth after 72 hours. All specime... Discharge Medications Scheduled Aspirin (Aspirin EC) 81 Mg Tab, 81 MG PO BID, (Reported) Cefdinir (Cefdinir) 300 Mg Capsule, 1 CAP PO BID Cholecalciferol (Vitamin D3) (Vitamin D3) 100 Mcg (4000 Unit) Capsule, 4,000 UNIT PO DAILY, (Reported) Doxycycline Monohydrate (Doxycycline) 100 Mg Capsule, 100 MG PO BID Fludrocortisone Acetate (Fludrocortisone Acetate) 0.1 Mg Tablet, 0.1 MG PO DAILY Hydrocortisone (Hydrocortisone) 10 Mg Tablet, 10 MG PO ONCE, (Reported) OLD RX, FAMILY GAVE TO PATIENT DUE TO SYMPTOMS Hydrocortisone (Hydrocortisone) 20 Mg Tablet, 2 TAB PO QAM Lacosamide (Vimpat) 200 Mg Tab, 200 MG PO BID, (Reported) Multivitamins (Thera M Plus Tablet) 1 Tab Tab, 1 TAB PO DAILY, (Reported) Omeprazole (Omeprazole) 40 Mg Capsule.dr, 40 MG PO DAILY, (Reported) Polyethylene Glycol 3350 (Miralax) 119 Gm Powder, 17 GM PO BID, (Reported) Sennosides/Docusate Sodium (Senna-S Tablet) 1 Each Tablet, 1 TAB PO DAILY, (Reported) Allergies Coded Allergies: Penicillins (Verified Allergy, Unknown, 11/23/18) ciprofloxacin (Verified Allergy, Unknown, 11/23/18) phenytoin (Verified Allergy, Unknown, 11/23/18) Hydrolyzed [place] Oil (Verified Adverse Reaction, Mild, diarrhea , 07/08/19) JUSTIN GTZ DO Nov 21, 2019 18:16
== END 2019-11-21 14:00 | disposition home or self-care (01) | DRG 871 ==
LOC: M ED 13:02 → M ED INP 16:55 → ENRESERV 17:09 → M MS5PR 18:24
PROVIDERS: ADMIT Internal Medicine; ATTEND Internal Medicine
DX: A41.9 Sepsis, unspecified organism (principal); J18.9 Pneumonia, unspecified organism; J96.01 Acute respiratory failure with hypoxia; E27.40 Unspecified adrenocortical insufficiency; K59.00 Constipation, unspecified; Z79.899 Other long term (current) drug therapy; Z79.82 Long term (current) use of aspirin; Z88.0 Allergy status to penicillin; Z88.8 Allergy status to other drugs, medicaments and biological substances; G40.909 Epilepsy, unspecified, not intractable, without status epilepticus; Z86.73 Personal history of transient ischemic attack (TIA), and cerebral infarction without residual deficits

== ENCOUNTER 2020-03-23 13:00 | Emergency (ER) | payer MEDICARE, MEDICAID ==
[~2020-03-23] VITALS: Ht 172.7 cm; Wt 126.0 kg
[~2020-03-23 13:00] MED LIST changes: +DOXY-350 PO; +FLUD0.1T PO; +HM V4000 PO; +HYDR-4468 PO; +HYDR20TA2 PO; +OMEP-221 PO; +SENN1TAB41 PO
[2020-03-23 14:23] LABS: BASO % 0.2 % (0.0-1.0); EOS # 0.1 10^3/uL (0.0-0.5); EOS % 3.5 % (0.0-3.0); HEMATOCRIT 42.5 % (42.0-52.0); HEMOGLOBIN 14.5 g/dl (13.5-17.5); LYMPH % 23.7 % (24.0-44.0); MEAN CORPUSCULAR HEMOGLOBIN 32.2 pg (27.0-33.0); MEAN CORPUSCULAR HGB CONC 34.1 g/dl (32.0-36.5); MEAN CORPUSCULAR VOLUME 94.4 fl (80.0-96.0); MONO # 0.4 10^3/uL (0.0-0.8); NEUTROPHILS # 2.5 10^3/uL (1.5-8.5); NEUTROPHILS % 62.4 % (36.0-66.0); PLATELET COUNT, AUTOMATED 147 10^3/uL (150-450)
[2020-03-23 14:49] LABS: ALBUMIN 3.4 GM/DL (3.2-5.2); ALT/SGPT 62 U/L (12-78); AMYLASE 50 U/L (25-115); BILIRUBIN,DIRECT < 0.1 MG/DL (0.0-0.2); BILIRUBIN,TOTAL 0.2 MG/DL (0.2-1.0); BLOOD UREA NITROGEN 22 MG/DL (7-18); C REACTIVE PROTEIN QUANTITATIV 1.06 MG/DL (0.00-0.30); CALCIUM LEVEL 9.4 MG/DL (8.5-10.1); CARBON DIOXIDE LEVEL 35 MEQ/L (21-32); CHLORIDE LEVEL 100 MEQ/L (98-107); CK-MB VALUE MASS 5.1 NG/ML (<3.6); CPK CREATINE PHOSPHOKINASE 67 U/L (39-308); CREATININE FOR GFR 0.56 MG/DL (0.70-1.30); GLOMERULAR FILTRATION RATE > 60.0 (>60); GLUCOSE, FASTING 62 MG/DL (70-100); MB/CK RELATIVE INDEX 7.61 (< OR =4); POTASSIUM SERUM 4.5 MEQ/L (3.5-5.1); SODIUM LEVEL 138 MEQ/L (136-145); TOTAL PROTEIN 7.6 GM/DL (6.4-8.2); TROPONIN I < 0.02 NG/ML (< 0.10)
[2020-03-23] MEDS ORDERED: KEFL500C17 PO (15:14)
[2020-03-23 15:34] VITALS: BP 98/64
[2020-03-28] MEDS ORDERED: VITALIQ27 PO (18:50)
[2020-03-28] MEDS ORDERED: KEFL500C17 PO (18:52)
[2020-03-30] MEDS ORDERED: FINA5TAB2 PO (14:23)
[2020-03-30] MEDS ORDERED: TAMS1CAP17 PO (14:23)
[2020-03-30] MEDS ORDERED: CEFP200T PO (14:23)
--- NOTE | 2020-04-22 09:47 | REP ---
PORTABLE CHEST X-RAY CLINICAL: Sepsis shock. COMPARISON: 11/18/2019. FINDINGS: Mediastinum and cardiac silhouette within normal limits. Lung osorio demonstrate stable chronic changes. No focal consolidation, effusion, or pneumothorax. Skeletal structures are intact. IMPRESSION: No acute cardiopulmonary process appreciated. MTDD
== END 2020-03-23 15:40 | disposition home or self-care (01) ==
LOC: M ED 13:00
DX: N39.0 Urinary tract infection, site not specified (principal); Z86.73 Personal history of transient ischemic attack (TIA), and cerebral infarction without residual deficits; K21.9 Gastro-esophageal reflux disease without esophagitis; Z79.82 Long term (current) use of aspirin; Z79.899 Other long term (current) drug therapy; Z88.8 Allergy status to other drugs, medicaments and biological substances; Z88.0 Allergy status to penicillin; Z88.1 Allergy status to other antibiotic agents; Z91.018 Allergy to other foods

== ENCOUNTER 2021-05-28 18:44 | Emergency (ER) | payer MEDICARE, MEDICAID ==
[~2021-05-28] VITALS: Ht 172.7 cm; Wt 58.2 kg
[~2021-05-28 18:44] MED LIST changes: +ASPI-569 PO; -ASPI81TAEC PO; +BACTDSTA; +CEFP200T PO; +FINA5TAB2 PO; +KEFL500C17 PO; +OMEP40CA4 PO; -OMEP40CA97 PO; -SULF1TAB93; +TAMS1CAP17 PO; +VITALIQ27 PO
--- OUTSIDE RECORDS SUMMARY | 2021-05-28 18:50 | CCD | Continuity of Care Document ---
Author Author Bari ESCALANTE M.D. Organization Unknown Address [address] [place] [id number] Phone [phone] Care Team Providers Care Epoxy Specialist Name Role Phone Chris Rajan M.D. AUTM [phone] Problems Active Problems Provider Date Localization-related epilepsy Jay Escalante M.D. Onset: Concussion injury of brain Jay Escalante M.D. Onset: 2013 Walking disability Jay Escalante M.D. Onset: 04/17/2014 Aphasia Jay Escalante M.D. Onset: 04/17/2014 Localization-related epilepsy Jay Escalante M.D. Onset: Sequela of intracranial injury Jay Escalante M.D. Onset: Flaccid hemiplegia of nondominant side Jay Escalante M.D. O nset: 05/09/2015 Late effect of injury Jay Escalante M.D. Onset: 08/07/2015 Cerebrovascular disease Jay Escalante M.D. Onset: 7 Social History Type Date Description Comments Sex Unknown ETOH Use Denies alcohol use Tobacco Use Start: Unknown Patient has never smoked Recreational Drug Use Never Used Drugs Allergies and adverse reactions Active Allergies Criticality Reaction | Severity Comments Date Penicillins Unable to assess criticality 04/17/2014 Dilantin Unable to assess criticality 04/17/2014 Ciprofloxacin Unable to assess criticality 08/08/2014 Medications Active Medications SIG Qnty Indications Ordering Provide r Date Omeprazole 40mg Capsules DR 1 by mouth every day 90caps Jay Escalante M.D. 05/11/2017 Vimpat 200mg Tablets take one tablet by mouth twice a day maximum daily dose = 2 60tabs Jay Escalante M.D. 08/08/2014 Immunizations Description No Information Available Vital Signs Date Vital Result Comment 01/30/2015 1:56pm BP Systolic 100 mmHg BP Diastolic 60 mmHg Heart Rate 78 /min Respiratory Rate 16 /min Height 68 inches 5'8" Weight 139.00 lb BMI (Body Mass Index) 21.1 kg/m2 [place] Body Weight 154 lb 10/09/2014 1:48pm BP Systolic 120 mmHg BP Diastolic 70 mmHg Heart Rate 78 /min Respiratory Rate 16 /min Height 68 inches 5'8" Weight 141.00 lb BMI (Body Mass Index) 21.4 kg/m2 [place] Body Weight 154 lb Results Description No Information Available Procedures Date Code Description Status 05/13/2021 50644 Office/Outpatient Established Mo d MDM 30-39 Min Completed 11/14/2020 05319 Phone Evaluation/Management Phys ician 11-20 Mins Completed Medical Devices Description No Information Available Encounters Type Date Location Provider Dx Diagnosis Office Visit 05/13/2021 1:[place] G40.009 Local-rel idio epi w seiz of loc onst,not ntrct,w/o stat epi S06.346S Traum hemor r cereb w Loc >2 4 hr w/o ret consc w surv, sqla 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 05/13/2021 S06.346S Traumatic hemorrhage of right cerebrum with loss of consciou Jay Escalante M.D. 05/13/2021 G81.04 Flaccid hemiplegia affecting lef t nondominant side Jay Escalante M.D. 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 05/13/2021 S06.6x2S Traumatic subarachno id hemorrhage with loss of consciousness Jay Escalante M.D. 11/14/2020 G40.009 Localization-related (focal) (pa rtial) idiopathic epilepsy a Jay Escalante M.D. 11/14/2020 S06.346S Traumatic hemorrhage of right cerebrum with loss of consciou Jay Escalante M.D. 11/14/2020 G81.04 Flaccid hemiplegia affecting lef t nondominant side Jay Escalante M.D. 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 11/14/2020 S06.6x2S Traumatic subarachno id hemorrhage with loss of consciousness Jay Escalante M.D. Plan of Treatment Future Appointment(s):* 11/11/2021 2:30 pm - Jay Escalante M.D. at Main office - [place] Functional Status Description No Information Available Mental Status Description No Information Available Referrals Description No Information Available
--- OUTSIDE RECORDS SUMMARY | 2021-05-28 18:50 | CCD | Continuity of Care Document ---
Author Author Bari ESCALANTE M.D. Organization Unknown Address [address] [place] [id number] Phone [phone] Care Team Providers Care [employer] Name Role Phone Chris Rajan M.D. AUTM [phone] Problems Active Problems Provider Date Localization-related epilepsy [...] lb BMI (Body Mass Index) 21.1 kg/m2 [place] Body Weight 154 lb 10/09/2014 1:48pm BP Systolic 120 mmHg BP Diastolic 70 mmHg Heart Rate 78 /min Respiratory Rate 16 /min Height 68 inches 5'8" Weight 141.00 lb BMI (Body Mass Index) 21.4 kg/m2 [place] Body Weight 154 lb Results Description No Information Available Procedures Date Code Description Status 05/13/2021 85533 Office/Outpatient Established Mo d MDM 30-39 Min Completed 11/14/2020 54601 Phone Evaluation/Management Phys ician 11-20 Mins Completed Medical Devices Description No Information Available Encounters Type Date Location Provider Dx Diagnosis Office Visit 05/13/2021 1:45p [place] G40.009 Local-rel idio epi w seiz of loc onst,not ntrct,w/o stat epi S06.346S Traum hemor r cereb w Loc >2 4 hr w/o ret consc w surv, sqla 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 Plan of Treatment No Information Available Functional Status Description No Information Available Mental Status Description No Information Available Referrals Description No Information Available
[2021-05-28] MEDS ORDERED: BACTDSTA PO (19:56)
[2021-05-28 22:32] LABS: BASO % 0.2 % (0.0-1.0); EOS # 0.1 10^3/uL (0.0-0.5); HEMATOCRIT 36.5 % (42.0-52.0); HEMOGLOBIN 12.3 g/dl (13.5-17.5); LYMPH # 0.8 10^3/uL (1.5-5.0); LYMPH % 15.8 % (24.0-44.0); MEAN CORPUSCULAR HGB CONC 33.7 g/dl (32.0-36.5); MEAN CORPUSCULAR VOLUME 91.9 fl (80.0-96.0); MONO # 0.7 10^3/uL (0.0-0.8); MONO % 13.6 % (2.0-8.0); NEUTROPHILS # 3.4 10^3/uL (1.5-8.5); NEUTROPHILS % 67.8 % (36.0-66.0); RED BLOOD COUNT 3.97 10^6/uL (4.30-6.10); WHITE BLOOD COUNT 5.1 10^3/uL (4.0-10.0)
--- NOTE | 2021-05-28 23:10 | REPVR ---
PROCEDURE INFORMATION: Exam: XR Chest Exam date and time: 05/28/21 (9:47pm) Age: 50 years old Clinical indication: Possible aspiration TECHNIQUE: Imaging protocol: XR of the chest. Views: 1 view COMPARISON: Chest films of 03/28/20 FINDINGS: Comparison is made with chest films done on 03/28/20. The patient is slightly rotated to an WEBB position. Stable heart size. Bilateral interstitial and reticulo-nodular opacities, most prominently in the right lung and at the left lung base. No dense consolidation. Minimal streaky changes at the left costophrenic angle region (probable atelectasis and/or scarring). No significant pleural effusions. No pneumothorax. IMPRESSION: Bilateral interstitial and reticulo-nodular opacities, most prominently in the right lung and at the left lung base. No dense consolidation. No pleural effusions. Probable bilateral pneumonia, more diffuse in the right lung. Close follow-up is suggested. Electronically signed by: Katherine Perez On 05/28/2021 23:09:38 PM
[2021-05-28 23:19] LABS: PLATELET COUNT, AUTOMATED 92 10^3/uL (150-450)
[2021-05-29 00:07] LABS: ALBUMIN 2.2 GM/DL (3.2-5.2); ALT/SGPT 42 U/L (12-78); BILIRUBIN,TOTAL 0.3 MG/DL (0.2-1.0); BLOOD UREA NITROGEN 16 MG/DL (7-18); CALCIUM LEVEL 9.2 MG/DL (8.5-10.1); CARBON DIOXIDE LEVEL 25 MEQ/L (21-32); CHLORIDE LEVEL 106 MEQ/L (98-107); CPK CREATINE PHOSPHOKINASE 232 U/L (39-308); CREATININE FOR GFR 0.79 MG/DL (0.70-1.30); GLOMERULAR FILTRATION RATE > 60.0 (>60); GLUCOSE, FASTING 126 MG/DL (70-100); POTASSIUM SERUM 4.8 MEQ/L (3.5-5.1); SODIUM LEVEL 140 MEQ/L (136-145)
[2021-05-29 00:45] VITALS: BP 119/80
[2021-05-29] MEDS ORDERED: DOXY-342 PO (00:58)
--- NOTE | 2021-05-29 07:40 | ED PDOC ---
Post-Departure Follow-Up radiology report faxed to Sana Proctor MD May 29, 2021 07:40
== END 2021-05-29 01:54 | disposition home or self-care (01) ==
LOC: M ED 18:44
DX: R94.5 Abnormal results of liver function studies (principal); R91.8 Other nonspecific abnormal finding of lung field; Z87.820 Personal history of traumatic brain injury; F80.9 Developmental disorder of speech and language, unspecified; N39.0 Urinary tract infection, site not specified; G40.909 Epilepsy, unspecified, not intractable, without status epilepticus; Z79.82 Long term (current) use of aspirin; Z79.899 Other long term (current) drug therapy; Z88.0 Allergy status to penicillin; Z88.1 Allergy status to other antibiotic agents; Z88.8 Allergy status to other drugs, medicaments and biological substances; Z91.018 Allergy to other foods

== ENCOUNTER → 2021-07-23 | Outpatient (REF) ==
[~2021-07-23] MED LIST changes: +BACTDSTA PO; +DOXY-342 PO
== END ==
LOC: M LABSMTC 08:58
PROVIDERS: ATTEND Pediatrics
DX: Z20.828 Contact with and (suspected) exposure to other viral communicable diseases (principal)

== ENCOUNTER → 2021-11-05 | Outpatient (CLI) | payer MEDICARE, MEDICAID ==
[~2021-11-05] MED LIST changes: +AZIT20SS2 PO; +CEFD250S26 PO; +CVS50CAP PO; +D 10CAP PO; +DOXY-443 PO; +OMEP-173 PO; -OMEP-221 PO; +OMEP40CA5 PO; +PRED10TA2 PO; +PROBCAP14 PO
== END ==
LOC: M LABSMTC 09:56
PROVIDERS: ATTEND Anesthesiology
DX: Z11.52 Encounter for screening for COVID-19 (principal); Z20.822 Contact with and (suspected) exposure to COVID-19

== ENCOUNTER 2021-11-10 09:50 | Day surgery (SDC) | payer MEDICARE, MEDICAID ==
[~2021-11-10] VITALS: Ht 172.7 cm; Wt 62.1 kg
[~2021-11-10 09:50] MED LIST changes: +NS 1,000 ML IV ONE
[2021-11-10] MEDS ORDERED: propofoL 200 MG/20 ML VIAL As Ordered ONE (11:00)
[2021-11-10] MEDS ORDERED: fentaNYL 100 MCG/2 ML INJECTION As Ordered ONE (11:00)
[2021-11-10] MEDS ORDERED: LIDOCAINE 2% 100MG/5ML SDV (FOR ANES.) As Ordered ONE (11:00)
[2021-11-10] MEDS ORDERED: ePHEDrine SULFATE 25 MG/5 ML(5MG/ML) SYRINGE As Ordered ONE (11:39)
[2021-11-10 12:25] VITALS: BP 85/51
== END 2021-11-10 13:30 | disposition home or self-care (01) ==
LOC: M OPP 09:50
PROVIDERS: ATTEND Internal Medicine Gastroenterology
DX: D50.9 Iron deficiency anemia, unspecified (principal); K64.0 First degree hemorrhoids; Z79.1 Long term (current) use of non-steroidal anti-inflammatories (NSAID); Z79.899 Other long term (current) drug therapy; Z88.0 Allergy status to penicillin; Z88.1 Allergy status to other antibiotic agents; Z88.8 Allergy status to other drugs, medicaments and biological substances; Z91.018 Allergy to other foods
CPT/HCPCS: 43239; 45378; 88305; J3010

== ENCOUNTER → 2021-11-12 | Outpatient (CLI) | payer MEDICARE, MEDICAID ==
[~2021-11-12] MED LIST changes: -NS 1,000 ML IV ONE
[2021-11-12 11:05] LABS: BASO % 0.3 % (0.0-1.0); EOS # 0.2 10^3/uL (0.0-0.5); EOS % 4.6 % (0.0-3.0); HEMATOCRIT 39.2 % (42.0-52.0); HEMOGLOBIN 13.3 g/dl (13.5-17.5); MEAN CORPUSCULAR HEMOGLOBIN 30.9 pg (27.0-33.0); MEAN CORPUSCULAR HGB CONC 33.9 g/dl (32.0-36.5); MEAN CORPUSCULAR VOLUME 91.2 fl (80.0-96.0); MONO # 0.3 10^3/uL (0.0-0.8); MONO % 8.9 % (2.0-8.0); NEUTROPHILS % 57.9 % (36.0-66.0); PLATELET COUNT, AUTOMATED 186 10^3/uL (150-450); WHITE BLOOD COUNT 3.5 10^3/uL (4.0-10.0)
[2021-11-12 11:38] LABS: ALBUMIN 3.3 GM/DL (3.2-5.2); ALT/SGPT 75 U/L (12-78); BILIRUBIN,TOTAL 0.3 MG/DL (0.2-1.0); BLOOD UREA NITROGEN 8 MG/DL (7-18); CALCIUM LEVEL 9.8 MG/DL (8.5-10.1); CARBON DIOXIDE LEVEL 33 MEQ/L (21-32); CHLORIDE LEVEL 106 MEQ/L (98-107); CREATININE FOR GFR 0.48 MG/DL (0.70-1.30); GLOMERULAR FILTRATION RATE > 60.0 (>56); GLUCOSE, FASTING 69 MG/DL (70-100); POTASSIUM SERUM 4.2 MEQ/L (3.5-5.1); SODIUM LEVEL 142 MEQ/L (136-145); TOTAL PROTEIN 7.2 GM/DL (6.4-8.2)
== END ==
LOC: M LAB 10:23
PROVIDERS: ATTEND Psychiatry & Neurology Neurology
DX: R56.9 Unspecified convulsions (principal)

== ENCOUNTER 2021-11-30 15:27 | Inpatient (IN) | payer MEDICARE, MEDICAID ==
[~2021-11-30] VITALS: Ht 172.7 cm; Wt 60.2 kg
[2021-11-30] MEDS ORDERED: ONDANSETRON 4MG/2ML VIAL IV ONE (16:30)
[2021-11-30] MEDS: NS 1,000 ML IV SCH ×2 (17:18→23:14)
[2021-11-30 17:30] LABS: BASO % 0.1 % (0.0-1.0); EOS % 0.2 % (0.0-3.0); HEMATOCRIT 41.9 % (42.0-52.0); HEMOGLOBIN 14.3 g/dl (13.5-17.5); LYMPH # 0.6 10^3/uL (1.5-5.0); LYMPH % 7.8 % (24.0-44.0); MEAN CORPUSCULAR HEMOGLOBIN 31.3 pg (27.0-33.0); MEAN CORPUSCULAR HGB CONC 34.1 g/dl (32.0-36.5); MEAN CORPUSCULAR VOLUME 91.7 fl (80.0-96.0); MONO # 0.2 10^3/uL (0.0-0.8); MONO % 2.9 % (2.0-8.0); NEUTROPHILS # 7.3 10^3/uL (1.5-8.5); NEUTROPHILS % 88.8 % (36.0-66.0); PLATELET COUNT, AUTOMATED 143 10^3/uL (150-450); RED BLOOD COUNT 4.57 10^6/uL (4.30-6.10); WHITE BLOOD COUNT 8.3 10^3/uL (4.0-10.0)
[2021-11-30 18:08] LABS: ALBUMIN 3.5 GM/DL (3.2-5.2); ALT/SGPT 151 U/L (12-78); BILIRUBIN,DIRECT < 0.1 MG/DL (0.0-0.2); BILIRUBIN,TOTAL 0.3 MG/DL (0.2-1.0); BLOOD UREA NITROGEN 22 MG/DL (7-18); CALCIUM LEVEL 9.5 MG/DL (8.5-10.1); CARBON DIOXIDE LEVEL 30 MEQ/L (21-32); CHLORIDE LEVEL 99 MEQ/L (98-107); CREATININE FOR GFR 0.92 MG/DL (0.70-1.30); GLOMERULAR FILTRATION RATE > 60.0 (>56); GLUCOSE, FASTING 119 MG/DL (70-100); LIPASE 97 U/L (73-393); POTASSIUM SERUM 5.4 MEQ/L (3.5-5.1); SODIUM LEVEL 133 MEQ/L (136-145); TOTAL PROTEIN 8.2 GM/DL (6.4-8.2)
[2021-11-30] MEDS ORDERED: ISOVUE-370 76% 100ML VIAL As Ordered ONE (18:24)
[2021-11-30] MEDS ORDERED: cefTRIAXone SOD 1 GM in D5W MINI-BAG PLUS 50 ML IV ONE (19:50)
[2021-11-30] MEDS ORDERED: OMEP40CA5 PO (20:01)
[2021-11-30] MEDS ORDERED: BACTDSTA PO (20:01)
[2021-11-30] MEDS ORDERED: HOME MED LIST COMPLETE! XX SCH (20:05)
[2021-11-30] MEDS ORDERED: MOM 30ML SUSPENSION UDC PO PRN (20:55)
[2021-11-30 20:56] LABS: RSV AMPLIFICATION NEGATIVE (NEGATIVE)
[2021-11-30] MEDS ORDERED: BISACODYL 10 MG SUPP PR ONE (22:00)
[2021-11-30] MEDS ORDERED: SOD POLYSTYRENE SULFONATE SUSP 15 GM/60 ML UD PO ONE (22:00)
[2021-11-30] MEDS: metroNIDAZOLE 500 MG in IV 1 EA IV SCH (23:10)
[2021-11-30] MEDS: LACOSAMIDE 50 MG TAB (VIMPAT) PO SCH (23:13)
[2021-11-30] MEDS: DOCUSATE SODIUM 100MG CAPSULE PO SCH (23:13)
[2021-12-01] VITALS (8 sets, daily range): BP systolic 96–129; BP diastolic 55–81
[2021-12-01] MEDS ORDERED: PROMETHAZINE 25MG/ML 1ML VIAL IV PRN (00:20)
[2021-12-01] MEDS: NS 1,000 ML IV SCH ×2 (01:45→14:08)
[2021-12-01] MEDS: MAG SULF 1GM/100ML (MAG RUN) 1 GM in IV 1 EA IV SCH ×2 (02:45→03:49)
[2021-12-01 05:29] LABS: HEMATOCRIT 34.6 % (42.0-52.0); MEAN CORPUSCULAR HEMOGLOBIN 31.6 pg (27.0-33.0); MEAN CORPUSCULAR HGB CONC 34.4 g/dl (32.0-36.5); MEAN CORPUSCULAR VOLUME 91.8 fl (80.0-96.0); PLATELET COUNT, AUTOMATED 133 10^3/uL (150-450); RED BLOOD COUNT 3.77 10^6/uL (4.30-6.10)
[2021-12-01 05:33] LABS: HEMOGLOBIN 11.9 g/dl (13.5-17.5)
[2021-12-01 05:55] LABS: ALBUMIN 2.7 GM/DL (3.2-5.2); ALT/SGPT 102 U/L (12-78); BILIRUBIN,TOTAL 0.1 MG/DL (0.2-1.0); BLOOD UREA NITROGEN 16 MG/DL (7-18); CALCIUM LEVEL 8.9 MG/DL (8.5-10.1); CARBON DIOXIDE LEVEL 25 MEQ/L (21-32); CHLORIDE LEVEL 107 MEQ/L (98-107); GLOMERULAR FILTRATION RATE > 60.0 (>56); GLUCOSE, FASTING 89 MG/DL (70-100); MAGNESIUM LEVEL 2.7 MG/DL (1.8-2.4); POTASSIUM SERUM 4.7 MEQ/L (3.5-5.1); SODIUM LEVEL 137 MEQ/L (136-145); TOTAL PROTEIN 6.5 GM/DL (6.4-8.2)
[2021-12-01] MEDS: metroNIDAZOLE 500 MG in IV 1 EA IV SCH ×3 (06:08→22:09)
[2021-12-01] MEDS: HEPARIN SOD (PORCINE) 5000UNITS/ML 1ML VIAL/SYRINGE SC SCH ×3 (06:25→22:09)
[2021-12-01] MEDS: LACOSAMIDE 50 MG TAB (VIMPAT) PO SCH ×2 (10:17→20:02)
[2021-12-01] MEDS: DOCUSATE SODIUM 100MG CAPSULE PO SCH (10:17)
[2021-12-01] MEDS: BISACODYL 10 MG SUPP PR SCH (10:17)
[2021-12-01] MEDS: ASPIRIN 81MG ENTERIC TABLET PO SCH (10:17)
[2021-12-01] MEDS: SENOKOT S TAB PO SCH (20:02)
[2021-12-01] MEDS: cefTRIAXone SOD 1 GM in D5W MINI-BAG PLUS 50 ML IV SCH (20:02)
[2021-12-01] MEDS: FLEET ENEMA PR SCH (20:03)
[2021-12-02] VITALS (8 sets, daily range): BP systolic 93–128; BP diastolic 52–74
[2021-12-02] MEDS ORDERED: NS 1,000 ML IV ONE (04:10)
[2021-12-02 05:38] LABS: BASO % 0.1 % (0.0-1.0); EOS # 0.2 10^3/uL (0.0-0.5); EOS % 2.3 % (0.0-3.0); HEMATOCRIT 31.5 % (42.0-52.0); HEMOGLOBIN 10.6 g/dl (13.5-17.5); LYMPH # 1.2 10^3/uL (1.5-5.0); LYMPH % 16.9 % (24.0-44.0); MEAN CORPUSCULAR HEMOGLOBIN 30.7 pg (27.0-33.0); MEAN CORPUSCULAR HGB CONC 33.7 g/dl (32.0-36.5); MEAN CORPUSCULAR VOLUME 91.3 fl (80.0-96.0); MONO # 0.7 10^3/uL (0.0-0.8); MONO % 9.9 % (2.0-8.0); NEUTROPHILS % 70.7 % (36.0-66.0); PLATELET COUNT, AUTOMATED 109 10^3/uL (150-450); RED BLOOD COUNT 3.45 10^6/uL (4.30-6.10); WHITE BLOOD COUNT 7.1 10^3/uL (4.0-10.0)
[2021-12-02] MEDS: NS 1,000 ML IV SCH ×2 (06:04→14:58)
[2021-12-02] MEDS: metroNIDAZOLE 500 MG in IV 1 EA IV SCH ×3 (06:07→22:04)
[2021-12-02] MEDS: HEPARIN SOD (PORCINE) 5000UNITS/ML 1ML VIAL/SYRINGE SC SCH (06:07)
[2021-12-02 06:12] LABS: BLOOD UREA NITROGEN 13 MG/DL (7-18); CALCIUM LEVEL 8.6 MG/DL (8.5-10.1); CARBON DIOXIDE LEVEL 26 MEQ/L (21-32); CHLORIDE LEVEL 113 MEQ/L (98-107); CREATININE FOR GFR 0.66 MG/DL (0.70-1.30); GLOMERULAR FILTRATION RATE > 60.0 (>56); GLUCOSE, FASTING 73 MG/DL (70-100); POTASSIUM SERUM 4.1 MEQ/L (3.5-5.1); SODIUM LEVEL 144 MEQ/L (136-145)
[2021-12-02] MEDS: SENOKOT S TAB PO SCH ×2 (09:37→20:33)
[2021-12-02] MEDS: FLEET ENEMA PR SCH ×2 (09:37→20:34)
[2021-12-02] MEDS: ASPIRIN 81MG ENTERIC TABLET PO SCH (09:37)
[2021-12-02] MEDS: LACOSAMIDE 50 MG TAB (VIMPAT) PO SCH ×2 (09:37→20:33)
[2021-12-02] MEDS: BISACODYL 10 MG SUPP PR SCH (14:58)
[2021-12-02] MEDS: cefTRIAXone SOD 1 GM in D5W MINI-BAG PLUS 50 ML IV SCH (20:33)
[2021-12-03] MEDS: NS 1,000 ML IV SCH ×2 (02:40→09:43)
[2021-12-03 04:01] VITALS: BP 144/78
[2021-12-03 06:03] LABS: BASO % 0.2 % (0.0-1.0); EOS # 0.2 10^3/uL (0.0-0.5); EOS % 3.8 % (0.0-3.0); HEMATOCRIT 32.7 % (42.0-52.0); HEMOGLOBIN 11.2 g/dl (13.5-17.5); LYMPH # 0.8 10^3/uL (1.5-5.0); LYMPH % 12.5 % (24.0-44.0); MEAN CORPUSCULAR HEMOGLOBIN 31.1 pg (27.0-33.0); MEAN CORPUSCULAR HGB CONC 34.3 g/dl (32.0-36.5); MEAN CORPUSCULAR VOLUME 90.8 fl (80.0-96.0); MONO # 0.5 10^3/uL (0.0-0.8); MONO % 8.7 % (2.0-8.0); NEUTROPHILS # 4.5 10^3/uL (1.5-8.5); NEUTROPHILS % 74.6 % (36.0-66.0); PLATELET COUNT, AUTOMATED 105 10^3/uL (150-450)
[2021-12-03] MEDS: metroNIDAZOLE 500 MG in IV 1 EA IV SCH (06:09)
[2021-12-03 06:36] LABS: ALBUMIN 2.5 GM/DL (3.2-5.2); ALT/SGPT 60 U/L (12-78); BILIRUBIN,DIRECT 0.2 MG/DL (0.0-0.2); BILIRUBIN,TOTAL 0.4 MG/DL (0.2-1.0); BLOOD UREA NITROGEN 9 MG/DL (7-18); CALCIUM LEVEL 8.7 MG/DL (8.5-10.1); CARBON DIOXIDE LEVEL 28 MEQ/L (21-32); CHLORIDE LEVEL 112 MEQ/L (98-107); CREATININE FOR GFR 0.67 MG/DL (0.70-1.30); GLOMERULAR FILTRATION RATE > 60.0 (>56); GLUCOSE, FASTING 124 MG/DL (70-100); POTASSIUM SERUM 2.9 MEQ/L (3.5-5.1); SODIUM LEVEL 143 MEQ/L (136-145); TOTAL PROTEIN 6.4 GM/DL (6.4-8.2)
[2021-12-03] MEDS ORDERED: KCL 10MEQ/100ML SWI (KRUN) 10 MEQ in IV 1 EA IV ONE (06:40)
[2021-12-03] MEDS ORDERED: POTASSIUM CHLORIDE 10% LIQ 20 MEQ/15 ML UDC PO ONE (06:40)
[2021-12-03 08:00] VITALS: BP 117/80
[2021-12-03 08:43] LABS: MAGNESIUM LEVEL 1.5 MG/DL (1.8-2.4)
[2021-12-03] MEDS: LACOSAMIDE 50 MG TAB (VIMPAT) PO SCH (08:47)
[2021-12-03] MEDS: BISACODYL 10 MG SUPP PR SCH (08:47)
[2021-12-03] MEDS: SENOKOT S TAB PO SCH (08:47)
[2021-12-03] MEDS: ASPIRIN 81MG ENTERIC TABLET PO SCH (08:47)
[2021-12-03] MEDS: FLEET ENEMA PR SCH (08:47)
[2021-12-03] MEDS ORDERED: CEFD300C41 PO (08:53)
[2021-12-03] MEDS ORDERED: SENN-52 PO (08:53)
[2021-12-03] MEDS ORDERED: METR-265 PO (08:53)
[2021-12-03] MEDS ORDERED: BISA10SU PR (08:53)
[2021-12-03 15:08] LABS: BODY FLUID CULTURE Not indicated. (.); LEGIONELLA ANTIGEN URINE Negative (Negative); ORGANISM ID Not indicated. (.); SPECIMEN SOURCE Urine (.); URINE STREP PNEUMONIAE ANTIGEN Negative (Negative)
== END 2021-12-03 11:53 | disposition home or self-care (01) | DRG 391 ==
LOC: M ED 15:27 → M ED INP 20:55 → ENRESERV 22:34 → M MSPAV 23:40 → M PCU 12-01 00:55
PROVIDERS: ADMIT Family Medicine; ATTEND Internal Medicine
DX: K59.00 Constipation, unspecified (principal); J69.0 Pneumonitis due to inhalation of food and vomit; E27.40 Unspecified adrenocortical insufficiency; K21.9 Gastro-esophageal reflux disease without esophagitis; E87.5 Hyperkalemia; R11.10 Vomiting, unspecified; R74.01 Elevation of levels of liver transaminase levels; Z87.820 Personal history of traumatic brain injury; R68.0 Hypothermia, not associated with low environmental temperature; E55.9 Vitamin D deficiency, unspecified; Z86.73 Personal history of transient ischemic attack (TIA), and cerebral infarction without residual deficits; G40.409 Other generalized epilepsy and epileptic syndromes, not intractable, without status epilepticus; Z79.899 Other long term (current) drug therapy; Z79.82 Long term (current) use of aspirin; Z88.0 Allergy status to penicillin; Z88.8 Allergy status to other drugs, medicaments and biological substances; Z91.018 Allergy to other foods

== ENCOUNTER 2022-01-06 11:06 | Emergency (ER) | payer MEDICARE, MEDICAID ==
[~2022-01-06] VITALS: Ht 172.7 cm; Wt 61.4 kg
[~2022-01-06 11:06] MED LIST changes: +BISA10SU PR; +CEFD300C41 PO; +METR-265 PO; +SENN-52 PO
[2022-01-06] MEDS ORDERED: ONDA-83 (11:20)
[2022-01-06] MEDS ORDERED: NS 1,000 ML IV SCH (12:15)
[2022-01-06 12:52] LABS: EOS # 0.1 10^3/uL (0.0-0.5); EOS % 1.8 % (0.0-3.0); HEMATOCRIT 42.4 % (42.0-52.0); HEMOGLOBIN 13.9 g/dl (13.5-17.5); LYMPH # 0.7 10^3/uL (1.5-5.0); LYMPH % 13.4 % (24.0-44.0); MEAN CORPUSCULAR HEMOGLOBIN 30.7 pg (27.0-33.0); MEAN CORPUSCULAR HGB CONC 32.8 g/dl (32.0-36.5); MEAN CORPUSCULAR VOLUME 93.6 fl (80.0-96.0); MONO # 0.3 10^3/uL (0.0-0.8); MONO % 6.2 % (2.0-8.0); NEUTROPHILS # 4.3 10^3/uL (1.5-8.5); NEUTROPHILS % 78.4 % (36.0-66.0); PLATELET COUNT, AUTOMATED 127 10^3/uL (150-450); RED BLOOD COUNT 4.53 10^6/uL (4.30-6.10); WHITE BLOOD COUNT 5.5 10^3/uL (4.0-10.0)
[2022-01-06 13:11] LABS: ALBUMIN 3.4 GM/DL (3.2-5.2); ALT/SGPT 38 U/L (12-78); BILIRUBIN,DIRECT 0.1 MG/DL (0.0-0.2); BILIRUBIN,TOTAL 0.3 MG/DL (0.2-1.0); BLOOD UREA NITROGEN 15 MG/DL (7-18); CALCIUM LEVEL 9.2 MG/DL (8.5-10.1); CARBON DIOXIDE LEVEL 31 MEQ/L (21-32); CHLORIDE LEVEL 101 MEQ/L (98-107); CREATININE FOR GFR 0.74 MG/DL (0.70-1.30); GLOMERULAR FILTRATION RATE > 60.0 (>56); GLUCOSE, FASTING 72 MG/DL (70-100); LIPASE 143 U/L (73-393); POTASSIUM SERUM 4.1 MEQ/L (3.5-5.1); SODIUM LEVEL 134 MEQ/L (136-145); TOTAL PROTEIN 8.4 GM/DL (6.4-8.2)
[2022-01-06 16:00] VITALS: BP 108/63
== END 2022-01-06 16:43 | disposition home or self-care (01) ==
LOC: M ED 11:06
DX: R11.10 Vomiting, unspecified (principal); R91.8 Other nonspecific abnormal finding of lung field; R93.3 Abnormal findings on diagnostic imaging of other parts of digestive tract; Z87.820 Personal history of traumatic brain injury; E27.40 Unspecified adrenocortical insufficiency; Z86.73 Personal history of transient ischemic attack (TIA), and cerebral infarction without residual deficits; K21.9 Gastro-esophageal reflux disease without esophagitis; Z87.440 Personal history of urinary (tract) infections; Z79.82 Long term (current) use of aspirin; Z79.899 Other long term (current) drug therapy; Z88.0 Allergy status to penicillin; Z88.1 Allergy status to other antibiotic agents; Z88.8 Allergy status to other drugs, medicaments and biological substances; Z91.018 Allergy to other foods

== ENCOUNTER → 2022-05-22 | Outpatient (CLI) | payer MEDICARE, MEDICAID ==
[~2022-05-22] MED LIST changes: +CLOP75TA99 PO; -DOXY-342 PO; -DOXY-350 PO; +DOXY-444 PO; +DOXY100C3 PO; +DOXY100C81 PO; +DOXY100T PO; +FLOM0.4C39 PO; +LACO150T PO; +ONDA-83 PO; -PLAV1TAB2 PO; +SENN-23 PO; +[UNRECOGNIZED DRUG - CODE] PO; +[UNRECOGNIZED DRUG - OTHER]
[2022-05-22 11:52] LABS: ALBUMIN 3.2 GM/DL (3.2-5.2); ALT/SGPT 257 U/L (12-78); BILIRUBIN,TOTAL 0.4 MG/DL (0.2-1.0); BLOOD UREA NITROGEN 17 MG/DL (7-18); CALCIUM LEVEL 9.4 MG/DL (8.5-10.1); CARBON DIOXIDE LEVEL 30 MEQ/L (21-32); CHLORIDE LEVEL 99 MEQ/L (98-107); CREATININE FOR GFR 0.71 MG/DL (0.70-1.30); GLOMERULAR FILTRATION RATE > 60.0 (>56); GLUCOSE, FASTING 62 MG/DL (70-100); POTASSIUM SERUM 4.5 MEQ/L (3.5-5.1); SODIUM LEVEL 134 MEQ/L (136-145); TOTAL PROTEIN 7.6 GM/DL (6.4-8.2)
[2022-05-22 12:53] LABS: TOTAL 25(OH) VITAMIN D 46.2 NG/ML (30.0-100.0); VITAMIN B12 LEVEL 1472 PG/ML
[2022-05-22 12:58] LABS: FOLATE 10.2 NG/ML
[2022-05-31 02:08] LABS: LACOSAMIDE LEVEL 13.2 ug/mL (5.0-10.0); VITAMIN B1 LEVEL WHOLE BLOOD 134.3 nmol/L (66.5-200.0); VITAMIN B6,PYRIDOXAL PHOSPHATE 16.6 ug/L (3.4-65.2); VITAMIN E(ALPHA TOCOPHEROL) 11.1 mg/L (7.0-25.1); VITAMIN E(GAMMA TOCOPHEROL) 0.1 mg/L (0.5-5.5)
== END ==
LOC: M LAB 09:45
PROVIDERS: ATTEND Psychiatry & Neurology Neurology
DX: R56.9 Unspecified convulsions (principal); E55.9 Vitamin D deficiency, unspecified; E53.8 Deficiency of other specified B group vitamins; E51.9 Thiamine deficiency, unspecified

== ENCOUNTER → 2022-05-22 | Outpatient (CLI) | payer MEDICARE, MEDICAID ==
[2022-05-22 11:14] LABS: HEMATOCRIT 41.3 % (42.0-52.0); HEMOGLOBIN 14.1 g/dl (13.5-17.5); MEAN CORPUSCULAR HEMOGLOBIN 30.9 pg (27.0-33.0); MEAN CORPUSCULAR HGB CONC 34.1 g/dl (32.0-36.5); MEAN CORPUSCULAR VOLUME 90.4 fl (80.0-96.0); RED BLOOD COUNT 4.57 10^6/uL (4.30-6.10)
[2022-05-22 11:16] LABS: PLATELET COUNT, AUTOMATED 82 10^3/uL (150-450)
[2022-05-22 11:44] LABS: ATYPICAL LYMPH 3 % (0-5); LYMPHOCYTES 3 % (16-44); METAMYELOCYTES 1 % (0-0); MONOCYTES 6 % (0-5); NEUTROPHILS 71 % (28-66)
[2022-05-22 11:46] LABS: GIANT PLATELETS 1+; PLATELET ESTIMATE DECREASED (NORMAL)
[2022-05-22 12:52] LABS: ALBUMIN 3.3 GM/DL (3.2-5.2); ALT/SGPT 258 U/L (12-78); BILIRUBIN,TOTAL 0.3 MG/DL (0.2-1.0); BLOOD UREA NITROGEN 18 MG/DL (7-18); CALCIUM LEVEL 9.3 MG/DL (8.5-10.1); CARBON DIOXIDE LEVEL 32 MEQ/L (21-32); CHLORIDE LEVEL 99 MEQ/L (98-107); CREATININE FOR GFR 0.69 MG/DL (0.70-1.30); GLOMERULAR FILTRATION RATE > 60.0 (>56); GLUCOSE, FASTING 64 MG/DL (70-100); POTASSIUM SERUM 4.6 MEQ/L (3.5-5.1); SODIUM LEVEL 134 MEQ/L (136-145); TOTAL PROTEIN 7.8 GM/DL (6.4-8.2)
[2022-05-22 13:17] LABS: TOTAL 25(OH) VITAMIN D 40.8 NG/ML (30.0-100.0)
== END ==
LOC: M LAB 09:48
PROVIDERS: ATTEND Family Medicine
DX: E55.9 Vitamin D deficiency, unspecified (principal); D64.9 Anemia, unspecified; E87.6 Hypokalemia

== ENCOUNTER 2022-05-24 11:16 | Inpatient (IN) | payer MEDICARE, MEDICAID ==
[~2022-05-24] VITALS: Ht 172.7 cm; Wt 60.3 kg
[~2022-05-24 11:16] MED LIST changes: -DOXY100C3 PO; -DOXY100T PO; -FLOM0.4C39 PO; -LACO150T PO; -SENN-23 PO; -[UNRECOGNIZED DRUG - CODE] PO; -[UNRECOGNIZED DRUG - OTHER]
[2022-05-24] MEDS ORDERED: MIRA3350 PO (11:24)
[2022-05-24] MEDS ORDERED: [UNRECOGNIZED DRUG - OTHER] (11:24)
[2022-05-24 13:50] LABS: BASO % 0.1 % (0.0-1.0); EOS # 0.1 10^3/uL (0.0-0.5); EOS % 1.3 % (0.0-3.0); HEMATOCRIT 41.3 % (42.0-52.0); LYMPH # 0.9 10^3/uL (1.5-5.0); LYMPH % 12.6 % (24.0-44.0); MEAN CORPUSCULAR HEMOGLOBIN 30.6 pg (27.0-33.0); MEAN CORPUSCULAR HGB CONC 33.9 g/dl (32.0-36.5); MEAN CORPUSCULAR VOLUME 90.4 fl (80.0-96.0); MONO # 0.5 10^3/uL (0.0-0.8); MONO % 7.4 % (2.0-8.0); NEUTROPHILS # 5.5 10^3/uL (1.5-8.5); NEUTROPHILS % 78.2 % (36.0-66.0); PLATELET COUNT, AUTOMATED 84 10^3/uL (150-450); RED BLOOD COUNT 4.57 10^6/uL (4.30-6.10); WHITE BLOOD COUNT 7.1 10^3/uL (4.0-10.0)
[2022-05-24] MEDS ORDERED: NS 1,840 ML in IV 1 EA IV ONE (14:10)
[2022-05-24] MEDS ORDERED: cefTRIAXone SOD 2 GM in D5W MINI-BAG PLUS 50 ML IV ONE (14:15)
[2022-05-24] MEDS ORDERED: LIDOCAINE 2% 5ML JELLY UROJET TOP ONE ×3 (14:25→16:00)
[2022-05-24] MEDS ORDERED: SENN-23 PO (14:25)
[2022-05-24] MEDS ORDERED: BACTDSTA PO (14:25)
[2022-05-24] MEDS ORDERED: LACO150T PO (14:25)
[2022-05-24] MEDS ORDERED: [UNRECOGNIZED DRUG - CODE] PO (14:25)
[2022-05-24 14:28] LABS: RSV AMPLIFICATION NEGATIVE (NEGATIVE)
[2022-05-24] MEDS ORDERED: HOME MED LIST COMPLETE! XX SCH (14:30)
[2022-05-24 15:15] LABS: ALBUMIN 3.2 GM/DL (3.2-5.2); ALT/SGPT 200 U/L (12-78); BILIRUBIN,DIRECT 0.1 MG/DL (0.0-0.2); BILIRUBIN,TOTAL 0.2 MG/DL (0.2-1.0); BLOOD UREA NITROGEN 27 MG/DL (7-18); C REACTIVE PROTEIN QUANTITATIV 7.93 MG/DL (0.00-0.30); CALCIUM LEVEL 10.1 MG/DL (8.5-10.1); CARBON DIOXIDE LEVEL 28 MEQ/L (21-32); CHLORIDE LEVEL 103 MEQ/L (98-107); CREATININE FOR GFR 0.76 MG/DL (0.70-1.30); GLOMERULAR FILTRATION RATE > 60.0 (>56); GLUCOSE, FASTING 63 MG/DL (70-100); POTASSIUM SERUM 5.1 MEQ/L (3.5-5.1); SODIUM LEVEL 133 MEQ/L (136-145); TOTAL PROTEIN 8.2 GM/DL (6.4-8.2)
[2022-05-24] MEDS ORDERED: ISOVUE-370 76% 100ML VIAL As Ordered ONE (15:34)
[2022-05-24] MEDS ORDERED: NS 1,000 ML IV ONE (16:00)
[2022-05-24 16:12] LABS: APPEARANCE, URINE MANUAL CLEAR (CLEAR); BILIRUBIN, URINE MANUAL NEGATIVE (NEGATIVE); BLOOD URINE MANUAL TRACE (NEGATIVE); COLOR, URINE MANUAL YELLOW (YELLOW); GLUCOSE, URINE (UA) MANUAL NEGATIVE (NEGATIVE); KETONE, URINE MANUAL NEGATIVE (NEGATIVE); LEUKOCYTE ESTERASE, URINE MAN TRACE (NEGATIVE); NITRITE, URINE MANUAL NEGATIVE (NEGATIVE); PROTEIN, URINE MANUAL NEGATIVE (NEGATIVE); UROBILINOGEN, URINE MANUAL NORMAL (NORMAL)
[2022-05-24 16:24] LABS: BACTERIA, URINE MOD AMOUNT; SQUAMOUS EPITHELIAL CELL URINE SMALL AMOUNT /hpf (SMALL AMT)
[2022-05-24 18:00] LABS: INR 0.93; PROTHROMBIN TIME 12.7 SECONDS (12.5-14.5)
[2022-05-24] MEDS ORDERED: ONDANSETRON 4MG 2ML VIAL IV PRN (18:30)
[2022-05-24 20:00] VITALS: BP 106/69
[2022-05-24] MEDS ORDERED: BISACODYL 10 MG SUPP PR ONE (20:00)
[2022-05-24 20:23] LABS: THYROID STIMULATING HORMONE 2.97 uIU/ML (0.358-3.740)
[2022-05-24] MEDS: DOXYCYCLINE HYCLATE 100 MG in D5W MINI-BAG PLUS 100 ML IV SCH (22:15)
[2022-05-24] MEDS: D5W/0.9% SODIUM CHLORIDE 1,000 ML IV SCH (22:15)
[2022-05-24] MEDS: LACOSAMIDE 50 MG TAB (VIMPAT) PO SCH (22:16)
[2022-05-24] MEDS: DOCUSATE SODIUM 100MG CAPSULE PO SCH (22:16)
[2022-05-24] MEDS: ENOXAPARIN 40MG/0.4ML SYRINGE (J1650 PER 10MG) SC SCH (22:16)
[2022-05-25] VITALS: BP 119/73
[2022-05-25] MEDS ORDERED: NS 1,000 ML IV SCH (02:00)
[2022-05-25 04:32] VITALS: BP 123/62
[2022-05-25 06:52] LABS: HEMATOCRIT 33.2 % (42.0-52.0); MEAN CORPUSCULAR HGB CONC 34.3 g/dl (32.0-36.5); MEAN CORPUSCULAR VOLUME 90.2 fl (80.0-96.0); RED BLOOD COUNT 3.68 10^6/uL (4.30-6.10); WHITE BLOOD COUNT 4.3 10^3/uL (4.0-10.0)
[2022-05-25 07:02] LABS: HEMOGLOBIN 11.4 g/dl (13.5-17.5); PLATELET COUNT, AUTOMATED 88 10^3/uL (150-450)
[2022-05-25 07:20] LABS: ALBUMIN 2.4 GM/DL (3.2-5.2); ALT/SGPT 135 U/L (12-78); BILIRUBIN,TOTAL 0.2 MG/DL (0.2-1.0); BLOOD UREA NITROGEN 17 MG/DL (7-18); C REACTIVE PROTEIN QUANTITATIV 5.41 MG/DL (0.00-0.30); CALCIUM LEVEL 8.6 MG/DL (8.5-10.1); CARBON DIOXIDE LEVEL 24 MEQ/L (21-32); CHLORIDE LEVEL 109 MEQ/L (98-107); CREATININE FOR GFR 0.67 MG/DL (0.70-1.30); GLOMERULAR FILTRATION RATE > 60.0 (>56); GLUCOSE, FASTING 72 MG/DL (70-100); POTASSIUM SERUM 4.3 MEQ/L (3.5-5.1); SODIUM LEVEL 137 MEQ/L (136-145); TOTAL PROTEIN 6.6 GM/DL (6.4-8.2)
[2022-05-25] MEDS: DOXYCYCLINE HYCLATE 100 MG in D5W MINI-BAG PLUS 100 ML IV SCH ×2 (07:34→20:08)
[2022-05-25 07:57] VITALS: BP 115/74
[2022-05-25] MEDS: MIRALAX *UNIT DOSE* 17GM PACKET PO SCH (08:49)
[2022-05-25] MEDS: cefTRIAXone SOD 2 GM in D5W MINI-BAG PLUS 50 ML IV SCH (08:50)
[2022-05-25] MEDS: DOCUSATE SODIUM 100MG CAPSULE PO SCH ×2 (08:50→20:14)
[2022-05-25] MEDS: LACOSAMIDE 50 MG TAB (VIMPAT) PO SCH ×2 (08:50→20:14)
[2022-05-25] MEDS: ASPIRIN 81MG ENTERIC TABLET PO SCH (08:50)
[2022-05-25] MEDS: TAMSULOSIN 0.4 MG CAP PO SCH (08:51)
[2022-05-25] MEDS: MULTIVITAMINS/MINERALS THERAP 1 TAB PO SCH (08:51)
[2022-05-25] MEDS: PANTOPRAZOLE 40MG TAB (PROTONIX) PO SCH (08:51)
[2022-05-25] MEDS ORDERED: FLEET ENEMA PR STA (09:11)
[2022-05-25] MEDS: D5W/0.9% SODIUM CHLORIDE 1,000 ML IV SCH ×2 (09:30→18:35)
[2022-05-25 10:57] LABS: CORTISOL BASELINE 11.4 UG/DL (4.3-22.4)
[2022-05-25 11:39] LABS: HEPATITIS B CORE ANTIBODY IGM NEGATIVE (NEGATIVE); HEPATITIS B SURFACE ANTIGEN NEGATIVE (NEGATIVE); HEPATITIS C VIRUS ABY INDEX 0.1 INDEX (<0.8)
[2022-05-25 12:00] VITALS: BP 112/58
[2022-05-25 16:00] VITALS: BP 113/61
[2022-05-25] MEDS ORDERED: COSYNTROPIN 0.25 MG/ML VIAL (J0834 PER 0.25MG) IV ONE (17:00)
[2022-05-25] MEDS: BISACODYL 10 MG SUPP PR SCH (18:01)
[2022-05-25] MEDS: HYDROCORTISONE 100 MG/2 ML VIAL (J1720 PER 1) IV SCH (19:20)
[2022-05-25 20:00] VITALS: BP 115/66
[2022-05-25] MEDS: ENOXAPARIN 40MG/0.4ML SYRINGE (J1650 PER 10MG) SC SCH (20:13)
[2022-05-26] MEDS: HYDROCORTISONE 100 MG/2 ML VIAL (J1720 PER 1) IV SCH (03:37)
[2022-05-26] MEDS: D5W/0.9% SODIUM CHLORIDE 1,000 ML IV SCH (03:46)
[2022-05-26 04:00] VITALS: BP 100/58
[2022-05-26 05:59] LABS: HEMATOCRIT 31.3 % (42.0-52.0); HEMOGLOBIN 10.8 g/dl (13.5-17.5); LYMPH # 0.6 10^3/uL (1.5-5.0); LYMPH % 15.4 % (24.0-44.0); MEAN CORPUSCULAR HEMOGLOBIN 31.4 pg (27.0-33.0); MEAN CORPUSCULAR HGB CONC 34.5 g/dl (32.0-36.5); MONO # 0.2 10^3/uL (0.0-0.8); MONO % 4.4 % (2.0-8.0); NEUTROPHILS # 3.2 10^3/uL (1.5-8.5); RED BLOOD COUNT 3.44 10^6/uL (4.30-6.10); WHITE BLOOD COUNT 4.1 10^3/uL (4.0-10.0)
[2022-05-26 06:00] LABS: PLATELET COUNT, AUTOMATED 94 10^3/uL (150-450)
[2022-05-26 06:33] LABS: ALBUMIN 2.6 GM/DL (3.2-5.2); ALT/SGPT 122 U/L (12-78); BILIRUBIN,TOTAL 0.2 MG/DL (0.2-1.0); BLOOD UREA NITROGEN 11 MG/DL (7-18); CALCIUM LEVEL 8.8 MG/DL (8.5-10.1); CARBON DIOXIDE LEVEL 25 MEQ/L (21-32); CHLORIDE LEVEL 109 MEQ/L (98-107); CREATININE FOR GFR 0.59 MG/DL (0.70-1.30); GLOMERULAR FILTRATION RATE > 60.0 (>56); GLUCOSE, FASTING 144 MG/DL (70-100); POTASSIUM SERUM 3.7 MEQ/L (3.5-5.1); SODIUM LEVEL 140 MEQ/L (136-145)
[2022-05-26] MEDS: DOXYCYCLINE HYCLATE 100 MG in D5W MINI-BAG PLUS 100 ML IV SCH (07:38)
[2022-05-26 07:58] VITALS: BP 103/65
[2022-05-26] MEDS: MIRALAX *UNIT DOSE* 17GM PACKET PO SCH (08:48)
[2022-05-26] MEDS: PANTOPRAZOLE 40MG TAB (PROTONIX) PO SCH (08:49)
[2022-05-26] MEDS: DOCUSATE SODIUM 100MG CAPSULE PO SCH (08:50)
[2022-05-26] MEDS: TAMSULOSIN 0.4 MG CAP PO SCH (08:50)
[2022-05-26] MEDS: LACOSAMIDE 50 MG TAB (VIMPAT) PO SCH (08:50)
[2022-05-26] MEDS: ASPIRIN 81MG ENTERIC TABLET PO SCH (08:50)
[2022-05-26] MEDS: MULTIVITAMINS/MINERALS THERAP 1 TAB PO SCH (08:50)
[2022-05-26] MEDS: cefTRIAXone SOD 2 GM in D5W MINI-BAG PLUS 50 ML IV SCH (08:51)
[2022-05-26] MEDS: BISACODYL 10 MG SUPP PR SCH (08:51)
[2022-05-26] MEDS ORDERED: BISACODYL 10 MG SUPP PR SCH (09:00)
[2022-05-26] MEDS ORDERED: DOXY100C3 PO (09:57)
[2022-05-26] MEDS ORDERED: FLOM0.4C39 PO (09:57)
== END 2022-05-26 11:08 | disposition home or self-care (01) | DRG 392 ==
LOC: M ED 11:16 → M ED INP 18:18 → M PCU 20:34
PROVIDERS: ADMIT Internal Medicine; ATTEND Internal Medicine
DX: K59.00 Constipation, unspecified (principal); N39.0 Urinary tract infection, site not specified; J98.11 Atelectasis; E27.40 Unspecified adrenocortical insufficiency; R53.83 Other fatigue; I95.9 Hypotension, unspecified; D69.6 Thrombocytopenia, unspecified; K21.9 Gastro-esophageal reflux disease without esophagitis; G40.909 Epilepsy, unspecified, not intractable, without status epilepticus; R68.0 Hypothermia, not associated with low environmental temperature; K80.20 Calculus of gallbladder without cholecystitis without obstruction; Z79.899 Other long term (current) drug therapy; Z79.82 Long term (current) use of aspirin; Z88.0 Allergy status to penicillin; Z91.018 Allergy to other foods; Z88.8 Allergy status to other drugs, medicaments and biological substances; G31.84 Mild cognitive impairment of uncertain or unknown etiology; Z87.820 Personal history of traumatic brain injury; Z86.73 Personal history of transient ischemic attack (TIA), and cerebral infarction without residual deficits

== ENCOUNTER 2022-05-31 08:08 | Inpatient (IN) | payer MEDICARE, MEDICAID ==
[~2022-05-31] VITALS: Ht 165.1 cm; Wt 77.1 kg
[2022-05-31] VITALS (71 sets, daily range): BP systolic 60–140; BP diastolic 34–70
[~2022-05-31 08:08] MED LIST changes: +DOXY100C3 PO; +FLOM0.4C39 PO; +LACO150T PO; +SENN-23 PO; +[UNRECOGNIZED DRUG - CODE] PO; +[UNRECOGNIZED DRUG - OTHER]
[2022-05-31] MEDS: LORazepam 2 MG/ML VIAL IV STA ×4 (08:10→09:10)
[2022-05-31] MEDS ORDERED: LORazepam 2 MG/ML VIAL As Ordered ONE (08:12)
[2022-05-31] MEDS ORDERED: LEVETIRACETAM IV ONE (08:15)
[2022-05-31] MEDS ORDERED: D5W IV ONE (08:15)
[2022-05-31] MEDS ORDERED: NOREPINEPHRINE 4MG IN D5 250ML 4 MG in IV 1 EA IV SCH ×2 (08:30)
[2022-05-31] MEDS ORDERED: MEROPENEM INJ 2 GM in NS 100 ML IV ONE (08:30)
[2022-05-31] MEDS ORDERED: NS 1,800 ML in IV 1 EA IV ONE (08:30)
[2022-05-31] MEDS ORDERED: DEXTROSE 50% 50 ML SYRINGE As Ordered ONE (08:38)
[2022-05-31] MEDS: LACOSAMIDE 10MG/ML 20ML VIAL (VIMPAT) IV SCH ×2 (09:00→20:48)
[2022-05-31] MEDS ORDERED: MEROPENEM INJ 1 GM in IV 1 EA IV ONE ×2 (09:00→09:30)
[2022-05-31] MEDS ORDERED: DEXTROSE 50% 50 ML SYRINGE IV STA (09:03)
[2022-05-31 09:10] LABS: BASO % 0.3 % (0.0-1.0); EOS # 0.2 10^3/uL (0.0-0.5); EOS % 3.2 % (0.0-3.0); HEMOGLOBIN 10.3 g/dl (13.5-17.5); LYMPH # 2.6 10^3/uL (1.5-5.0); LYMPH % 37.1 % (24.0-44.0); MEAN CORPUSCULAR HEMOGLOBIN 31.3 pg (27.0-33.0); MEAN CORPUSCULAR HGB CONC 33.2 g/dl (32.0-36.5); MEAN CORPUSCULAR VOLUME 94.2 fl (80.0-96.0); MONO # 0.5 10^3/uL (0.0-0.8); MONO % 7.6 % (2.0-8.0); NEUTROPHILS # 3.6 10^3/uL (1.5-8.5); PLATELET COUNT, AUTOMATED 114 10^3/uL (150-450); RED BLOOD COUNT 3.29 10^6/uL (4.30-6.10); WHITE BLOOD COUNT 7.1 10^3/uL (4.0-10.0)
[2022-05-31 09:25] LABS: OSMOLALITY SERUM 302 MOSM/KG (275-295)
[2022-05-31] MEDS ORDERED: HYDROCORTISONE 100 MG/2 ML VIAL (J1720 PER 1) IV ONE (09:30)
[2022-05-31 09:34] LABS: RSV AMPLIFICATION NEGATIVE (NEGATIVE)
[2022-05-31 09:50] LABS: ACETAMINOPHEN LEVEL 2.2 UG/ML (10.0-30.0); ALBUMIN 2.3 GM/DL (3.2-5.2); ALKALINE PHOSPHATASE 86 U/L (45-117); ALT/SGPT 119 U/L (12-78); AST/SGOT 73 U/L (7-37); BILIRUBIN,DIRECT < 0.1 MG/DL (0.0-0.2); BILIRUBIN,TOTAL 0.1 MG/DL (0.2-1.0); BLOOD UREA NITROGEN 17 MG/DL (7-18); CALCIUM LEVEL 8.7 MG/DL (8.5-10.1); CARBON DIOXIDE LEVEL 13 MEQ/L (21-32); CHLORIDE LEVEL 105 MEQ/L (98-107); CREATININE FOR GFR 1.04 MG/DL (0.70-1.30); ETHYL ALCOHOL (ETHANOL) 0.003 % (0.000-0.010); GLOMERULAR FILTRATION RATE > 60.0 (>56); GLUCOSE, FASTING 177 MG/DL (70-100); POTASSIUM SERUM 4.2 MEQ/L (3.5-5.1); SALICYLATE LEVEL < 1.7 MG/DL (5.0-30.0); SODIUM LEVEL 139 MEQ/L (136-145); TOTAL PROTEIN 5.6 GM/DL (6.4-8.2)
[2022-05-31] MEDS ORDERED: DOXY100T PO (10:40)
[2022-05-31] MEDS ORDERED: TAMS1CAP17 PO (10:42)
[2022-05-31] MEDS ORDERED: HOME MED LIST COMPLETE! XX SCH (10:50)
[2022-05-31] MEDS: NS 1,000 ML IV SCH (11:44)
[2022-05-31 12:00] LABS: AMPHETAMINES LEVEL URINE NEGATIVE (NEGATIVE); BARBITURATES URINE NEGATIVE (NEGATIVE); BENZODIAZEPINES URINE POSITIVE (NEGATIVE); CANNABINOIDS URINE NEGATIVE (NEGATIVE); COCAINE METABOLITE URINE NEGATIVE (NEGATIVE); METHADONE URINE NEGATIVE (NEGATIVE); OPIATES URINE NEGATIVE (NEGATIVE); PHENCYCLIDINE URINE NEGATIVE (NEGATIVE)
[2022-05-31] MEDS: PANTOPRAZOLE 40MG VIAL IV SCH (12:44)
[2022-05-31] MEDS: NOREPINEPHRINE 4MG IN D5 250ML 4 MG in IV 1 EA IV SCH ×4 (12:49→22:53)
[2022-05-31] MEDS ORDERED: NS 500 ML IV STA (13:06)
[2022-05-31] MEDS ORDERED: PHENYLEPHRINE 10MG/ML 1ML VIAL As Ordered ONE (13:31)
[2022-05-31] MEDS ORDERED: EPINEPHrine INJ 1 MG/ML 1ML AMP As Ordered ONE (13:46)
[2022-05-31] MEDS ORDERED: ATROPINE SULF 1MG/10ML SYRINGE (J0461) As Ordered ONE (13:55)
[2022-05-31] MEDS ORDERED: PHENYLEPHRINE HCL INJ 50 MG in D5W 495 ML IV SCH (14:00)
[2022-05-31] MEDS ORDERED: EPINEPHrine HCL INJ 1 MG in D5W 240 ML IV SCH (14:00)
[2022-05-31 14:08] LABS: ABG BASE EXCESS -4.1 (-2.0-2.0); ABG HCO3 22.9 MEQ/L (22.0-26.0); ABG O2 SATURATION 92.6 % (95.0-99.0); ABG PARTIAL PRESSURE O2 76.6 mmHg (75.0-100.0); ABG TOTAL CO2 24.4 MEQ/L (22.0-29.0); ABG pH (ARTERIAL) 7.279 UNITS (7.350-7.450)
[2022-05-31] MEDS: HYDROCORTISONE 100 MG/2 ML VIAL (J1720 PER 1) IV SCH ×2 (14:18→20:48)
[2022-05-31] MEDS ORDERED: NS 1,000 ML IV STA (14:21)
[2022-05-31 14:53] LABS: MB/CK RELATIVE INDEX 3.16 (< OR =4)
[2022-05-31] MEDS ORDERED: VASOPRESSIN INJ 20 UNITS in NS 499 ML IV STA (14:55)
[2022-05-31] MEDS ORDERED: VANCOMYCIN HCL 750 MG, VIAL MATE ADAPTER 1 EACH in NS 250 ML IV SCH (15:00)
[2022-05-31] MEDS ORDERED: VASOPRESSIN INJ 20 UNITS in NS 499 ML IV SCH ×2 (15:00→15:04)
[2022-05-31 15:53] LABS: VENOUS BASE EXCESS -4.9 (-2.0-2.0); VENOUS HCO3 22.5 MEQ/L (23.0-27.0); VENOUS O2 SATURATION 97.8 % (60.0-80.0); VENOUS PARTIAL PRESSURE O2 116.2 mmHg (30.0-50.0); VENOUS PH 7.255 UNITS (7.330-7.430); VENOUS STANDARD HCO3 20.4 MEQ/L; VENOUS TOTAL CO2 24.1 MEQ/L (24.0-28.0)
[2022-05-31] MEDS: VANCOMYCIN HCL 750 MG, VIAL MATE ADAPTER 1 EACH in D5W 250 ML IV SCH (16:02)
[2022-05-31] MEDS: HEPARIN SOD (PORCINE) 5000UNITS/ML 1ML VIAL/SYRINGE SC SCH ×2 (17:12→21:18)
[2022-05-31] MEDS: MEROPENEM INJ 1 GM in IV 1 EA IV SCH (17:12)
[2022-05-31] MEDS ORDERED: MIDAZOLAM INJ 2MG/2ML VIAL (J2250 PER 1MG) As Ordered ONE ×2 (17:18→17:27)
[2022-05-31] MEDS ORDERED: fentaNYL 100 MCG/2 ML INJECTION As Ordered ONE (17:19)
[2022-05-31] MEDS ORDERED: MIDAZOLAM 100MG/100ML-0.9%NACL 100 MG in IV 1 EA IV STA (17:28)
[2022-05-31] MEDS ORDERED: MIDAZOLAM 5MG/ML 1ML VIAL (J2250 PER 1MG) IV STA (17:44)
[2022-05-31] MEDS ORDERED: fentaNYL 100 MCG/2 ML INJECTION IV STA (17:44)
[2022-05-31] MEDS ORDERED: VANCOMYCIN HCL 500 MG in D5W MINI-BAG PLUS 100 ML IV ONE (18:00)
[2022-05-31] MEDS: MIDAZOLAM 100MG/100ML-0.9%NACL 100 MG in IV 1 EA IV SCH (18:02)
[2022-05-31 19:17] LABS: ABG BASE EXCESS 1.2 (-2.0-2.0); ABG HCO3 23.4 MEQ/L (22.0-26.0); ABG O2 SATURATION 99.1 % (95.0-99.0); ABG PARTIAL PRESSURE CO2 29.2 mmHg (35.0-45.0); ABG PARTIAL PRESSURE O2 161.6 mmHg (75.0-100.0); ABG STANDARD HCO3 25.6 MEQ/L (22.0-26.0); ABG TOTAL CO2 24.3 MEQ/L (22.0-29.0); ABG pH (ARTERIAL) 7.522 UNITS (7.350-7.450)
[2022-05-31] MEDS: CHLORHEXIDINE GLUCONATE 0.12 % 15ML UDC (PERIDEX ORAL RINSE) MT SCH (20:48)
[2022-05-31 22:03] LABS: ABG BASE EXCESS 1.7 (-2.0-2.0); ABG HCO3 24.5 MEQ/L (22.0-26.0); ABG PARTIAL PRESSURE CO2 32.4 mmHg (35.0-45.0); ABG PARTIAL PRESSURE O2 113.5 mmHg (75.0-100.0); ABG TOTAL CO2 25.5 MEQ/L (22.0-29.0); ABG pH (ARTERIAL) 7.497 UNITS (7.350-7.450)
[2022-06-01] VITALS (97 sets, daily range): BP systolic 82–129; BP diastolic 46–71
[2022-06-01] MEDS: MEROPENEM INJ 1 GM in IV 1 EA IV SCH ×3 (01:42→16:03)
[2022-06-01] MEDS: VANCOMYCIN HCL 750 MG, VIAL MATE ADAPTER 1 EACH in D5W 250 ML IV SCH (03:07)
[2022-06-01] MEDS: HYDROCORTISONE 100 MG/2 ML VIAL (J1720 PER 1) IV SCH ×4 (03:08→19:59)
[2022-06-01] MEDS: NS 1,000 ML IV SCH (03:08)
[2022-06-01] MEDS: HEPARIN SOD (PORCINE) 5000UNITS/ML 1ML VIAL/SYRINGE SC SCH ×3 (05:14→21:57)
[2022-06-01 05:26] LABS: ABG BASE EXCESS 0.5 (-2.0-2.0); ABG HCO3 23.2 MEQ/L (22.0-26.0); ABG O2 SATURATION 96.5 % (95.0-99.0); ABG PARTIAL PRESSURE CO2 30.9 mmHg (35.0-45.0); ABG PARTIAL PRESSURE O2 88.3 mmHg (75.0-100.0); ABG STANDARD HCO3 24.9 MEQ/L (22.0-26.0); ABG TOTAL CO2 24.1 MEQ/L (22.0-29.0); ABG pH (ARTERIAL) 7.493 UNITS (7.350-7.450)
[2022-06-01 05:28] LABS: VENOUS BASE EXCESS 2.6 (-2.0-2.0); VENOUS HCO3 26.7 MEQ/L (23.0-27.0); VENOUS O2 SATURATION 97.3 % (60.0-80.0); VENOUS PARTIAL PRESSURE CO2 39.5 mmHg (38.0-50.0); VENOUS PARTIAL PRESSURE O2 93.2 mmHg (30.0-50.0); VENOUS PH 7.448 UNITS (7.330-7.430); VENOUS STANDARD HCO3 26.8 MEQ/L; VENOUS TOTAL CO2 27.9 MEQ/L (24.0-28.0)
[2022-06-01 05:32] LABS: HEMATOCRIT 30.3 % (42.0-52.0); HEMOGLOBIN 10.8 g/dl (13.5-17.5); MEAN CORPUSCULAR HEMOGLOBIN 31.5 pg (27.0-33.0); MEAN CORPUSCULAR HGB CONC 35.6 g/dl (32.0-36.5); MEAN CORPUSCULAR VOLUME 88.3 fl (80.0-96.0); PLATELET COUNT, AUTOMATED 140 10^3/uL (150-450); RED BLOOD COUNT 3.43 10^6/uL (4.30-6.10); WHITE BLOOD COUNT 9.1 10^3/uL (4.0-10.0)
[2022-06-01 06:00] LABS: MAGNESIUM LEVEL 1.7 MG/DL (1.8-2.4); PHOSPHORUS LEVEL 1.7 MG/DL (2.5-4.9)
[2022-06-01 06:10] LABS: ALBUMIN 2.3 GM/DL (3.2-5.2); ALKALINE PHOSPHATASE 89 U/L (45-117); ALT/SGPT 106 U/L (12-78); AST/SGOT 71 U/L (7-37); BILIRUBIN,TOTAL 0.2 MG/DL (0.2-1.0); BLOOD UREA NITROGEN 11 MG/DL (7-18); CALCIUM LEVEL 8.4 MG/DL (8.5-10.1); CARBON DIOXIDE LEVEL 27 MEQ/L (21-32); CHLORIDE LEVEL 106 MEQ/L (98-107); CREATININE FOR GFR 0.68 MG/DL (0.70-1.30); GLOMERULAR FILTRATION RATE > 60.0 (>56); GLUCOSE, FASTING 171 MG/DL (70-100); POTASSIUM SERUM 3.8 MEQ/L (3.5-5.1); SODIUM LEVEL 136 MEQ/L (136-145); TOTAL PROTEIN 5.8 GM/DL (6.4-8.2)
[2022-06-01] MEDS: LACOSAMIDE 10MG/ML 20ML VIAL (VIMPAT) IV SCH ×2 (08:18→19:58)
[2022-06-01] MEDS: PANTOPRAZOLE 40MG VIAL IV SCH (08:18)
[2022-06-01] MEDS: levETIRAcetam INJection 500 MG in D5W MINI-BAG PLUS 100 ML IV SCH ×2 (08:19→19:59)
[2022-06-01] MEDS: NOREPINEPHRINE 4MG IN D5 250ML 4 MG in IV 1 EA IV SCH ×2 (08:20)
[2022-06-01] MEDS: CHLORHEXIDINE GLUCONATE 0.12 % 15ML UDC (PERIDEX ORAL RINSE) MT SCH ×2 (08:20→19:59)
[2022-06-01] MEDS: MIDAZOLAM 100MG/100ML-0.9%NACL 100 MG in IV 1 EA IV SCH (18:00)
[2022-06-02] VITALS (72 sets, daily range): BP systolic 82–119; BP diastolic 50–71
[2022-06-02] MEDS: MEROPENEM INJ 1 GM in IV 1 EA IV SCH ×3 (00:07→16:40)
[2022-06-02] MEDS: HYDROCORTISONE 100 MG/2 ML VIAL (J1720 PER 1) IV SCH ×3 (02:06→18:33)
[2022-06-02 04:30] LABS: HEMATOCRIT 29.7 % (42.0-52.0); HEMOGLOBIN 10.3 g/dl (13.5-17.5); MEAN CORPUSCULAR HEMOGLOBIN 30.9 pg (27.0-33.0); MEAN CORPUSCULAR HGB CONC 34.7 g/dl (32.0-36.5); MEAN CORPUSCULAR VOLUME 89.2 fl (80.0-96.0); PLATELET COUNT, AUTOMATED 126 10^3/uL (150-450); RED BLOOD COUNT 3.33 10^6/uL (4.30-6.10); WHITE BLOOD COUNT 9.6 10^3/uL (4.0-10.0)
[2022-06-02] MEDS: HEPARIN SOD (PORCINE) 5000UNITS/ML 1ML VIAL/SYRINGE SC SCH ×2 (05:04→14:35)
[2022-06-02 05:28] LABS: ALBUMIN 2.2 GM/DL (3.2-5.2); ALKALINE PHOSPHATASE 86 U/L (45-117); ALT/SGPT 89 U/L (12-78); AST/SGOT 64 U/L (7-37); BILIRUBIN,TOTAL 0.3 MG/DL (0.2-1.0); BLOOD UREA NITROGEN 12 MG/DL (7-18); CALCIUM LEVEL 8.7 MG/DL (8.5-10.1); CARBON DIOXIDE LEVEL 28 MEQ/L (21-32); CHLORIDE LEVEL 110 MEQ/L (98-107); CREATININE FOR GFR 0.52 MG/DL (0.70-1.30); GLOMERULAR FILTRATION RATE > 60.0 (>56); GLUCOSE, FASTING 130 MG/DL (70-100); POTASSIUM SERUM 3.4 MEQ/L (3.5-5.1); SODIUM LEVEL 144 MEQ/L (136-145); TOTAL PROTEIN 5.6 GM/DL (6.4-8.2)
[2022-06-02 05:31] LABS: ABG HCO3 27.1 MEQ/L (22.0-26.0); ABG O2 SATURATION 93.8 % (95.0-99.0); ABG PARTIAL PRESSURE CO2 35.4 mmHg (35.0-45.0); ABG PARTIAL PRESSURE O2 65.2 mmHg (75.0-100.0); ABG TOTAL CO2 28.2 MEQ/L (22.0-29.0); ABG pH (ARTERIAL) 7.502 UNITS (7.350-7.450)
[2022-06-02] MEDS: CHLORHEXIDINE GLUCONATE 0.12 % 15ML UDC (PERIDEX ORAL RINSE) MT SCH ×2 (08:39→20:05)
[2022-06-02] MEDS: LACOSAMIDE 10MG/ML 20ML VIAL (VIMPAT) IV SCH ×2 (08:39→20:05)
[2022-06-02] MEDS: PANTOPRAZOLE 40MG VIAL IV SCH (08:39)
[2022-06-02] MEDS: levETIRAcetam INJection 500 MG in D5W MINI-BAG PLUS 100 ML IV SCH ×2 (08:39→20:05)
[2022-06-02] MEDS ORDERED: POTASSIUM CHLORIDE 10MEQ SR TABLET PO ONE (09:00)
[2022-06-02] MEDS ORDERED: POTASSIUM CHLORIDE 10% LIQ 20 MEQ/15 ML UDC PO ONE (09:00)
[2022-06-02 09:01] LABS: MAGNESIUM LEVEL 1.9 MG/DL (1.8-2.4)
[2022-06-02 15:25] LABS: MAGNESIUM LEVEL 1.9 MG/DL (1.8-2.4); POTASSIUM SERUM 3.3 MEQ/L (3.5-5.1); THYROID STIMULATING HORMONE 2.73 uIU/ML (0.358-3.740)
[2022-06-02] MEDS ORDERED: KCL 20MEQ IN 100ML SWI (KRUN) 20 MEQ in IV 1 EA IV ONE ×2 (16:00)
[2022-06-02] MEDS ORDERED: MIDAZOLAM INJ 2MG/2ML VIAL (J2250 PER 1MG) IV STA ×2 (16:54→17:26)
[2022-06-02 16:55] LABS: VENOUS BASE EXCESS 2.1 (-2.0-2.0); VENOUS HCO3 26.9 MEQ/L (23.0-27.0); VENOUS O2 SATURATION 88.6 % (60.0-80.0); VENOUS PARTIAL PRESSURE CO2 42.9 mmHg (38.0-50.0); VENOUS PARTIAL PRESSURE O2 55.3 mmHg (30.0-50.0); VENOUS PH 7.415 UNITS (7.330-7.430); VENOUS STANDARD HCO3 26.1 MEQ/L; VENOUS TOTAL CO2 28.2 MEQ/L (24.0-28.0)
[2022-06-02 18:26] LABS: HEMATOCRIT 27.4 % (42.0-52.0); HEMOGLOBIN 9.5 g/dl (13.5-17.5)
[2022-06-02 18:28] LABS: PHOSPHORUS LEVEL 1.4 MG/DL (2.5-4.9)
[2022-06-02] MEDS: MIDAZOLAM INJ 2MG/2ML VIAL (J2250 PER 1MG) IV PRN ×2 (21:49→23:21)
[2022-06-02 22:47] LABS: HEMATOCRIT 28.4 % (42.0-52.0)
[2022-06-03] VITALS (42 sets, daily range): BP systolic 76–112; BP diastolic 46–70
[2022-06-03] MEDS: MEROPENEM INJ 1 GM in IV 1 EA IV SCH ×3 (00:39→16:39)
[2022-06-03] MEDS: HYDROCORTISONE 100 MG/2 ML VIAL (J1720 PER 1) IV SCH ×3 (02:06→19:45)
[2022-06-03] MEDS: MIDAZOLAM INJ 2MG/2ML VIAL (J2250 PER 1MG) IV PRN ×5 (02:48→17:04)
[2022-06-03 04:29] LABS: HEMATOCRIT 27.7 % (42.0-52.0); HEMOGLOBIN 9.5 g/dl (13.5-17.5); MEAN CORPUSCULAR HEMOGLOBIN 31.1 pg (27.0-33.0); MEAN CORPUSCULAR HGB CONC 34.3 g/dl (32.0-36.5); MEAN CORPUSCULAR VOLUME 90.8 fl (80.0-96.0); PLATELET COUNT, AUTOMATED 115 10^3/uL (150-450); RED BLOOD COUNT 3.05 10^6/uL (4.30-6.10); WHITE BLOOD COUNT 9.9 10^3/uL (4.0-10.0)
[2022-06-03 05:13] LABS: ALBUMIN 2.2 GM/DL (3.2-5.2); ALKALINE PHOSPHATASE 82 U/L (45-117); ALT/SGPT 79 U/L (12-78); AST/SGOT 63 U/L (7-37); BILIRUBIN,TOTAL 0.2 MG/DL (0.2-1.0); BLOOD UREA NITROGEN 19 MG/DL (7-18); CALCIUM LEVEL 8.5 MG/DL (8.5-10.1); CARBON DIOXIDE LEVEL 29 MEQ/L (21-32); CHLORIDE LEVEL 113 MEQ/L (98-107); CREATININE FOR GFR 0.52 MG/DL (0.70-1.30); GLOMERULAR FILTRATION RATE > 60.0 (>56); GLUCOSE, FASTING 112 MG/DL (70-100); POTASSIUM SERUM 3.5 MEQ/L (3.5-5.1); SODIUM LEVEL 146 MEQ/L (136-145); TOTAL PROTEIN 5.2 GM/DL (6.4-8.2)
[2022-06-03 05:57] LABS: ABG BASE EXCESS 1.7 (-2.0-2.0); ABG HCO3 25.3 MEQ/L (22.0-26.0); ABG O2 SATURATION 86.5 % (95.0-99.0); ABG PARTIAL PRESSURE CO2 35.8 mmHg (35.0-45.0); ABG STANDARD HCO3 25.8 MEQ/L (22.0-26.0); ABG TOTAL CO2 26.4 MEQ/L (22.0-29.0); ABG pH (ARTERIAL) 7.467 UNITS (7.350-7.450)
[2022-06-03 06:00] LABS: ABG PARTIAL PRESSURE O2 48.6 mmHg (75.0-100.0)
[2022-06-03] MEDS ORDERED: NS 1,000 ML IV ONE (08:50)
[2022-06-03] MEDS: LACOSAMIDE 10MG/ML 20ML VIAL (VIMPAT) IV SCH ×2 (09:39→20:18)
[2022-06-03] MEDS: PANTOPRAZOLE 40MG VIAL IV SCH (09:40)
[2022-06-03] MEDS: levETIRAcetam INJection 500 MG in D5W MINI-BAG PLUS 100 ML IV SCH ×2 (09:40→20:18)
[2022-06-03] MEDS: CHLORHEXIDINE GLUCONATE 0.12 % 15ML UDC (PERIDEX ORAL RINSE) MT SCH ×2 (09:40→20:18)
[2022-06-03] MEDS ORDERED: MIDAZOLAM INJ 2MG/2ML VIAL (J2250 PER 1MG) As Ordered ONE (10:36)
[2022-06-03] MEDS ORDERED: NS 500 ML IV ONE (11:10)
[2022-06-03 12:57] LABS: HEMATOCRIT 24.8 % (42.0-52.0); HEMOGLOBIN 8.5 g/dl (13.5-17.5); MEAN CORPUSCULAR HEMOGLOBIN 31.1 pg (27.0-33.0); MEAN CORPUSCULAR HGB CONC 34.3 g/dl (32.0-36.5); MEAN CORPUSCULAR VOLUME 90.8 fl (80.0-96.0); PLATELET COUNT, AUTOMATED 111 10^3/uL (150-450); RED BLOOD COUNT 2.73 10^6/uL (4.30-6.10); WHITE BLOOD COUNT 7.5 10^3/uL (4.0-10.0)
[2022-06-03 13:04] LABS: ABG BASE EXCESS 5.5 (-2.0-2.0); ABG HCO3 29.8 MEQ/L (22.0-26.0); ABG O2 SATURATION 95.8 % (95.0-99.0); ABG PARTIAL PRESSURE CO2 42.8 mmHg (35.0-45.0); ABG STANDARD HCO3 29.4 MEQ/L (22.0-26.0); ABG TOTAL CO2 31.1 MEQ/L (22.0-29.0); ABG pH (ARTERIAL) 7.461 UNITS (7.350-7.450)
[2022-06-03] MEDS ORDERED: HYDROCORTISONE 100 MG/2 ML VIAL (J1720 PER 1) IV SCH (14:00)
[2022-06-03 14:08] LABS: BLOOD UREA NITROGEN 24 MG/DL (7-18); CARBON DIOXIDE LEVEL 29 MEQ/L (21-32); CHLORIDE LEVEL 115 MEQ/L (98-107); CREATININE FOR GFR 0.47 MG/DL (0.70-1.30); GLOMERULAR FILTRATION RATE > 60.0 (>56); GLUCOSE, FASTING 111 MG/DL (70-100); MAGNESIUM LEVEL 1.9 MG/DL (1.8-2.4); POTASSIUM SERUM 3.3 MEQ/L (3.5-5.1); SODIUM LEVEL 147 MEQ/L (136-145)
[2022-06-03] MEDS: HEPARIN SOD (PORCINE) 5000UNITS/ML 1ML VIAL/SYRINGE SC SCH ×2 (15:04→21:29)
[2022-06-03] MEDS ORDERED: POTASSIUM CHLORIDE 10% LIQ 20 MEQ/15 ML UDC FT ONE (15:40)
[2022-06-04] VITALS (33 sets, daily range): BP systolic 85–124; BP diastolic 50–74; O2SAT 96
[2022-06-04] MEDS: MEROPENEM INJ 1 GM in IV 1 EA IV SCH ×3 (01:00→17:47)
[2022-06-04] MEDS: NOREPINEPHRINE 4MG IN D5 250ML 4 MG in IV 1 EA IV SCH ×2 (02:00)
[2022-06-04] MEDS: HYDROCORTISONE 100 MG/2 ML VIAL (J1720 PER 1) IV SCH ×3 (03:01→20:26)
[2022-06-04] MEDS: MIDAZOLAM INJ 2MG/2ML VIAL (J2250 PER 1MG) IV PRN (04:00)
[2022-06-04 04:35] LABS: HEMATOCRIT 26.7 % (42.0-52.0); HEMOGLOBIN 9.1 g/dl (13.5-17.5); MEAN CORPUSCULAR HEMOGLOBIN 31.3 pg (27.0-33.0); MEAN CORPUSCULAR HGB CONC 34.1 g/dl (32.0-36.5); MEAN CORPUSCULAR VOLUME 91.8 fl (80.0-96.0); PLATELET COUNT, AUTOMATED 150 10^3/uL (150-450); RED BLOOD COUNT 2.91 10^6/uL (4.30-6.10); WHITE BLOOD COUNT 9.1 10^3/uL (4.0-10.0)
[2022-06-04 04:54] LABS: BLOOD UREA NITROGEN 33 MG/DL (7-18); CALCIUM LEVEL 8.4 MG/DL (8.5-10.1); CARBON DIOXIDE LEVEL 29 MEQ/L (21-32); CHLORIDE LEVEL 114 MEQ/L (98-107); GLOMERULAR FILTRATION RATE > 60.0 (>56); GLUCOSE, FASTING 124 MG/DL (70-100); POTASSIUM SERUM 3.6 MEQ/L (3.5-5.1); SODIUM LEVEL 146 MEQ/L (136-145)
[2022-06-04 05:44] LABS: ABG BASE EXCESS 4.8 (-2.0-2.0); ABG O2 SATURATION 97.5 % (95.0-99.0); ABG PARTIAL PRESSURE O2 98.5 mmHg (75.0-100.0); ABG STANDARD HCO3 28.8 MEQ/L (22.0-26.0); ABG TOTAL CO2 29.1 MEQ/L (22.0-29.0); ABG pH (ARTERIAL) 7.509 UNITS (7.350-7.450)
[2022-06-04] MEDS: HEPARIN SOD (PORCINE) 5000UNITS/ML 1ML VIAL/SYRINGE SC SCH ×3 (05:47→22:03)
[2022-06-04] MEDS: LR 1,000 ML IV SCH ×2 (06:28→21:42)
[2022-06-04] MEDS ORDERED: POTASSIUM CHLORIDE 10MEQ SR TABLET PO ONE (06:30)
[2022-06-04] MEDS: CHLORHEXIDINE GLUCONATE 0.12 % 15ML UDC (PERIDEX ORAL RINSE) MT SCH ×2 (08:37→20:27)
[2022-06-04] MEDS: levETIRAcetam INJection 500 MG in D5W MINI-BAG PLUS 100 ML IV SCH ×2 (08:38→20:27)
[2022-06-04] MEDS: PANTOPRAZOLE 40MG VIAL IV SCH (08:43)
[2022-06-04] MEDS: LACOSAMIDE 10MG/ML 20ML VIAL (VIMPAT) IV SCH ×2 (09:04→20:57)
[2022-06-04 11:18] LABS: ABG BASE EXCESS 4.8 (-2.0-2.0); ABG O2 SATURATION 97.1 % (95.0-99.0); ABG PARTIAL PRESSURE CO2 41.2 mmHg (35.0-45.0); ABG PARTIAL PRESSURE O2 99.7 mmHg (75.0-100.0); ABG STANDARD HCO3 28.8 MEQ/L (22.0-26.0); ABG TOTAL CO2 30.2 MEQ/L (22.0-29.0); ABG pH (ARTERIAL) 7.465 UNITS (7.350-7.450)
[2022-06-04] MEDS: SODIUM CHLORIDE HYPERTONIC 3% 15ML NEB SOL INH SCH ×2 (15:21→19:58)
[2022-06-04] MEDS: ALBUTEROL SULFATE 2.5 MG/0.5 ML INH NEB SOLN NEB SCH ×2 (15:21→19:58)
[2022-06-04 18:49] LABS: ALKALINE PHOSPHATASE 73 U/L (45-117); ALT/SGPT 71 U/L (12-78); AST/SGOT 45 U/L (7-37); BILIRUBIN,TOTAL 0.3 MG/DL (0.2-1.0); BLOOD UREA NITROGEN 32 MG/DL (7-18); CALCIUM LEVEL 8.3 MG/DL (8.5-10.1); CARBON DIOXIDE LEVEL 29 MEQ/L (21-32); CHLORIDE LEVEL 114 MEQ/L (98-107); CREATININE FOR GFR 0.49 MG/DL (0.70-1.30); GLOMERULAR FILTRATION RATE > 60.0 (>56); GLUCOSE, FASTING 97 MG/DL (70-100); POTASSIUM SERUM 3.4 MEQ/L (3.5-5.1); SODIUM LEVEL 145 MEQ/L (136-145)
[2022-06-05] VITALS (13 sets, daily range): BP systolic 88–105; BP diastolic 50–63; O2SAT 96
[2022-06-05] MEDS: MEROPENEM INJ 1 GM in IV 1 EA IV SCH (00:50)
[2022-06-05] MEDS: ALBUTEROL SULFATE 2.5 MG/0.5 ML INH NEB SOLN NEB SCH ×5 (01:15→20:34)
[2022-06-05] MEDS: SODIUM CHLORIDE HYPERTONIC 3% 15ML NEB SOL INH SCH ×5 (01:15→20:34)
[2022-06-05] MEDS: HYDROCORTISONE 100 MG/2 ML VIAL (J1720 PER 1) IV SCH ×3 (04:53→21:02)
[2022-06-05 05:03] LABS: HEMATOCRIT 24.2 % (42.0-52.0); HEMOGLOBIN 8.2 g/dl (13.5-17.5); MEAN CORPUSCULAR HEMOGLOBIN 31.7 pg (27.0-33.0); MEAN CORPUSCULAR HGB CONC 33.9 g/dl (32.0-36.5); MEAN CORPUSCULAR VOLUME 93.4 fl (80.0-96.0); PLATELET COUNT, AUTOMATED 142 10^3/uL (150-450); RED BLOOD COUNT 2.59 10^6/uL (4.30-6.10); WHITE BLOOD COUNT 8.7 10^3/uL (4.0-10.0)
[2022-06-05] MEDS: HEPARIN SOD (PORCINE) 5000UNITS/ML 1ML VIAL/SYRINGE SC SCH ×3 (06:27→22:06)
[2022-06-05] MEDS: PANTOPRAZOLE 40MG VIAL IV SCH (09:37)
[2022-06-05] MEDS: levETIRAcetam INJection 500 MG in D5W MINI-BAG PLUS 100 ML IV SCH ×2 (09:39→21:02)
[2022-06-05 09:44] LABS: BLOOD UREA NITROGEN 31 MG/DL (7-18); CALCIUM LEVEL 8.6 MG/DL (8.5-10.1); CARBON DIOXIDE LEVEL 30 MEQ/L (21-32); CHLORIDE LEVEL 111 MEQ/L (98-107); CREATININE FOR GFR 0.46 MG/DL (0.70-1.30); GLOMERULAR FILTRATION RATE > 60.0 (>56); GLUCOSE, FASTING 96 MG/DL (70-100); POTASSIUM SERUM 3.5 MEQ/L (3.5-5.1); SODIUM LEVEL 144 MEQ/L (136-145)
[2022-06-05] MEDS: LACOSAMIDE 10MG/ML 20ML VIAL (VIMPAT) IV SCH ×2 (09:46→21:03)
[2022-06-05] MEDS: BISACODYL 10 MG SUPP PR SCH ×2 (09:49→21:04)
[2022-06-05] MEDS: CHLORHEXIDINE GLUCONATE 0.12 % 15ML UDC (PERIDEX ORAL RINSE) MT SCH ×2 (09:50→21:02)
[2022-06-05] MEDS ORDERED: AMINO AC/ELECTROLYTE/DEX/CALC 2,000 ML IV SCH (18:00)
[2022-06-05] MEDS: INSULIN LISPRO (NovoLOG) PER UNIT SC SCH ×2 (18:00→23:58)
[2022-06-05 18:06] LABS: FREE THYROXINE INDEX 3.2 % (1.4-3.8); THYROID STIMULATING HORMONE 3.15 uIU/ML (0.358-3.740); THYROXINE (T4) 8.8 UG/DL (4.5-12.0)
[2022-06-06] VITALS: BP 90/51
[2022-06-06] MEDS: SODIUM CHLORIDE HYPERTONIC 3% 15ML NEB SOL INH SCH ×7 (00:12→23:54)
[2022-06-06] MEDS: ALBUTEROL SULFATE 2.5 MG/0.5 ML INH NEB SOLN NEB SCH ×7 (00:12→23:54)
[2022-06-06] MEDS ORDERED: NS 500 ML IV SCH (01:00)
[2022-06-06] MEDS: HYDROCORTISONE 100 MG/2 ML VIAL (J1720 PER 1) IV SCH ×3 (04:05→18:31)
[2022-06-06 04:43] LABS: HEMATOCRIT 22.6 % (42.0-52.0); HEMOGLOBIN 7.5 g/dl (13.5-17.5); MEAN CORPUSCULAR HEMOGLOBIN 31.5 pg (27.0-33.0); MEAN CORPUSCULAR HGB CONC 33.2 g/dl (32.0-36.5); PLATELET COUNT, AUTOMATED 161 10^3/uL (150-450); RED BLOOD COUNT 2.38 10^6/uL (4.30-6.10)
[2022-06-06] MEDS: HEPARIN SOD (PORCINE) 5000UNITS/ML 1ML VIAL/SYRINGE SC SCH ×3 (05:28→21:25)
[2022-06-06] MEDS: INSULIN LISPRO (NovoLOG) PER UNIT SC SCH ×3 (05:29→18:00)
[2022-06-06 08:00] VITALS: BP 92/55
[2022-06-06] MEDS: PANTOPRAZOLE 40MG VIAL IV SCH (08:43)
[2022-06-06] MEDS: levETIRAcetam INJection 500 MG in D5W MINI-BAG PLUS 100 ML IV SCH ×2 (08:43→21:23)
[2022-06-06] MEDS: LACOSAMIDE 10MG/ML 20ML VIAL (VIMPAT) IV SCH ×2 (08:43→21:25)
[2022-06-06] MEDS: CHLORHEXIDINE GLUCONATE 0.12 % 15ML UDC (PERIDEX ORAL RINSE) MT SCH ×2 (08:43→21:22)
[2022-06-06] MEDS: BISACODYL 10 MG SUPP PR SCH ×2 (08:44→21:21)
[2022-06-06] MEDS: SODIUM CHLORIDE 0.9% INJ 10 ML SYR IV SCH ×2 (09:37→21:37)
[2022-06-06 12:00] VITALS: BP 88/53
[2022-06-06 13:10] LABS: HEMATOCRIT 22.4 % (42.0-52.0); HEMOGLOBIN 7.4 g/dl (13.5-17.5)
[2022-06-06] MEDS ORDERED: NS 500 ML IV ONE (13:10)
[2022-06-06 13:45] LABS: BLOOD UREA NITROGEN 28 MG/DL (7-18); CALCIUM LEVEL 7.9 MG/DL (8.5-10.1); CARBON DIOXIDE LEVEL 33 MEQ/L (21-32); CHLORIDE LEVEL 112 MEQ/L (98-107); CREATININE FOR GFR 0.56 MG/DL (0.70-1.30); GLOMERULAR FILTRATION RATE > 60.0 (>56); GLUCOSE, FASTING 131 MG/DL (70-100); POTASSIUM SERUM 3.2 MEQ/L (3.5-5.1); SODIUM LEVEL 147 MEQ/L (136-145)
[2022-06-06 13:50] LABS: PERCENT SATURATION 19.5 % (19.7-50.0)
[2022-06-06 16:00] VITALS: BP 104/77
[2022-06-06] MEDS ORDERED: AMINO AC/ELECTROLYTE/DEX/CALC 2,000 ML IV SCH (18:00)
[2022-06-06] MEDS ORDERED: FAT EMULSION IV 250 ML IV ONE (18:00)
[2022-06-06 20:00] VITALS: BP 100/55
[2022-06-07] VITALS (27 sets, daily range): BP systolic 80–117; BP diastolic 43–64
[2022-06-07] MEDS: INSULIN LISPRO (NovoLOG) PER UNIT SC SCH ×4 (00:15→18:00)
[2022-06-07] MEDS: HYDROCORTISONE 100 MG/2 ML VIAL (J1720 PER 1) IV SCH ×4 (00:16→18:28)
[2022-06-07] MEDS: ALBUTEROL SULFATE 2.5 MG/0.5 ML INH NEB SOLN NEB SCH ×6 (03:21→23:59)
[2022-06-07] MEDS: SODIUM CHLORIDE HYPERTONIC 3% 15ML NEB SOL INH SCH ×7 (03:21→23:59)
[2022-06-07 04:25] LABS: HEMATOCRIT 22.8 % (42.0-52.0); HEMOGLOBIN 7.4 g/dl (13.5-17.5); MEAN CORPUSCULAR HEMOGLOBIN 31.6 pg (27.0-33.0); MEAN CORPUSCULAR HGB CONC 32.5 g/dl (32.0-36.5); MEAN CORPUSCULAR VOLUME 97.4 fl (80.0-96.0); PLATELET COUNT, AUTOMATED 204 10^3/uL (150-450); RED BLOOD COUNT 2.34 10^6/uL (4.30-6.10); WHITE BLOOD COUNT 11.4 10^3/uL (4.0-10.0)
[2022-06-07 05:23] LABS: BLOOD UREA NITROGEN 26 MG/DL (7-18); CALCIUM LEVEL 8.1 MG/DL (8.5-10.1); CARBON DIOXIDE LEVEL 31 MEQ/L (21-32); CHLORIDE LEVEL 112 MEQ/L (98-107); CREATININE FOR GFR 0.55 MG/DL (0.70-1.30); GLOMERULAR FILTRATION RATE > 60.0 (>56); GLUCOSE, FASTING 160 MG/DL (70-100); POTASSIUM SERUM 3.4 MEQ/L (3.5-5.1); SODIUM LEVEL 146 MEQ/L (136-145)
[2022-06-07] MEDS: HEPARIN SOD (PORCINE) 5000UNITS/ML 1ML VIAL/SYRINGE SC SCH ×3 (05:59→21:56)
[2022-06-07] MEDS: SODIUM CHLORIDE 0.9% INJ 10 ML SYR IV SCH ×3 (05:59→22:09)
[2022-06-07] MEDS: IPRATROPIUM 0.5MG/ALBUTEROL 2.5MG INH SOL UD 3ML (DUONEB) NEB SCH ×5 (08:00→23:58)
[2022-06-07] MEDS: LACOSAMIDE 10MG/ML 20ML VIAL (VIMPAT) IV SCH ×2 (08:14→20:36)
[2022-06-07] MEDS: cefTRIAXone SOD 2 GM in D5W MINI-BAG PLUS 50 ML IV SCH (08:14)
[2022-06-07] MEDS: PANTOPRAZOLE 40MG VIAL IV SCH (08:14)
[2022-06-07] MEDS: levETIRAcetam INJection 500 MG in D5W MINI-BAG PLUS 100 ML IV SCH ×2 (08:15→20:36)
[2022-06-07] MEDS: CHLORHEXIDINE GLUCONATE 0.12 % 15ML UDC (PERIDEX ORAL RINSE) MT SCH ×2 (08:15→20:37)
[2022-06-07] MEDS: KCL 10MEQ/100ML SWI (KRUN) 10 MEQ in IV 1 EA IV SCH ×2 (08:15→10:38)
[2022-06-07] MEDS: BISACODYL 10 MG SUPP PR SCH ×2 (08:16→20:37)
[2022-06-07 08:45] LABS: HEMATOCRIT 21.8 % (42.0-52.0)
[2022-06-07] MEDS ORDERED: ISOVUE-370 76% 100ML VIAL As Ordered ONE (08:58)
[2022-06-07 09:29] LABS: C REACTIVE PROTEIN QUANTITATIV 0.68 MG/DL (0.00-0.30); PERCENT SATURATION 12.7 % (19.7-50.0)
[2022-06-07 09:35] LABS: ABG BASE EXCESS 7.8 (-2.0-2.0); ABG HCO3 32.9 MEQ/L (22.0-26.0); ABG O2 SATURATION 88.7 % (95.0-99.0); ABG PARTIAL PRESSURE CO2 51.1 mmHg (35.0-45.0); ABG PARTIAL PRESSURE O2 53.7 mmHg (75.0-100.0); ABG STANDARD HCO3 31.5 MEQ/L (22.0-26.0); ABG TOTAL CO2 34.5 MEQ/L (22.0-29.0); ABG pH (ARTERIAL) 7.427 UNITS (7.350-7.450)
[2022-06-07 10:06] LABS: CK-MB VALUE MASS < 1.0 NG/ML (<3.6); CPK CREATINE PHOSPHOKINASE 153 U/L (39-308); MB/CK RELATIVE INDEX 0.65 (< OR =4)
[2022-06-07] MEDS ORDERED: FUROSEMIDE injection 250 MG in D5W 225 ML IV SCH (15:00)
[2022-06-07] MEDS ORDERED: FAT EMULSION IV 250 ML IV ONE (18:00)
[2022-06-07] MEDS ORDERED: AMINO AC/ELECTROLYTE/DEX/CALC 2,000 ML IV SCH (18:00)
[2022-06-07] MEDS ORDERED: SODIUM CHLORIDE 0.9% 250ML IV ONE (19:05)
[2022-06-07 19:18] LABS: ABG HCO3 32.6 MEQ/L (22.0-26.0); ABG PARTIAL PRESSURE CO2 47.5 mmHg (35.0-45.0); ABG PARTIAL PRESSURE O2 230.9 mmHg (75.0-100.0); ABG STANDARD HCO3 31.8 MEQ/L (22.0-26.0); ABG TOTAL CO2 34.1 MEQ/L (22.0-29.0); ABG pH (ARTERIAL) 7.455 UNITS (7.350-7.450)
[2022-06-07 19:20] LABS: HEMATOCRIT 16.4 % (42.0-52.0)
[2022-06-07 19:21] LABS: HEMOGLOBIN 5.2 g/dl (13.5-17.5)
[2022-06-07] MEDS ORDERED: LR 500 ML IV ONE (20:55)
[2022-06-07] MEDS ORDERED: PANTOPRAZOLE 40MG VIAL IV SCH (21:00)
[2022-06-07] MEDS: SODIUM CHLORIDE 0.9% INJ 10 ML SYR IV PRN (22:09)
[2022-06-07 23:18] LABS: HEMATOCRIT 19.9 % (42.0-52.0); HEMOGLOBIN 6.6 g/dl (13.5-17.5)
[2022-06-08] VITALS (97 sets, daily range): BP systolic 75–123; BP diastolic 41–65; O2SAT 100
[2022-06-08] MEDS: SODIUM CHLORIDE 0.9% INJ 10 ML SYR IV PRN ×3 (00:13→22:08)
[2022-06-08] MEDS: HYDROCORTISONE 100 MG/2 ML VIAL (J1720 PER 1) IV SCH ×4 (00:13→18:01)
[2022-06-08] MEDS: INSULIN LISPRO (NovoLOG) PER UNIT SC SCH ×4 (00:13→18:01)
[2022-06-08 03:04] LABS: HEMATOCRIT 22.6 % (42.0-52.0); HEMOGLOBIN 7.6 g/dl (13.5-17.5)
[2022-06-08] MEDS ORDERED: LR 500 ML IV ONE (03:10)
[2022-06-08] MEDS: IPRATROPIUM 0.5MG/ALBUTEROL 2.5MG INH SOL UD 3ML (DUONEB) NEB SCH ×2 (04:00→07:51)
[2022-06-08] MEDS: ALBUTEROL SULFATE 2.5 MG/0.5 ML INH NEB SOLN NEB SCH ×5 (04:02→18:15)
[2022-06-08] MEDS: SODIUM CHLORIDE HYPERTONIC 3% 15ML NEB SOL INH SCH ×5 (04:02→18:15)
[2022-06-08] MEDS: SODIUM CHLORIDE 0.9% INJ 10 ML SYR IV SCH ×3 (06:01→22:08)
[2022-06-08] MEDS: HEPARIN SOD (PORCINE) 5000UNITS/ML 1ML VIAL/SYRINGE SC SCH (06:02)
[2022-06-08 06:18] LABS: MEAN CORPUSCULAR HEMOGLOBIN 30.4 pg (27.0-33.0); MEAN CORPUSCULAR HGB CONC 33.5 g/dl (32.0-36.5); MEAN CORPUSCULAR VOLUME 90.8 fl (80.0-96.0); PLATELET COUNT, AUTOMATED 187 10^3/uL (150-450); RED BLOOD COUNT 2.17 10^6/uL (4.30-6.10); WHITE BLOOD COUNT 15.2 10^3/uL (4.0-10.0)
[2022-06-08 06:19] LABS: HEMATOCRIT 19.7 % (42.0-52.0)
[2022-06-08 06:20] LABS: HEMOGLOBIN 6.6 g/dl (13.5-17.5)
[2022-06-08 06:49] LABS: BLOOD UREA NITROGEN 38 MG/DL (7-18); CALCIUM LEVEL 8.2 MG/DL (8.5-10.1); CARBON DIOXIDE LEVEL 30 MEQ/L (21-32); CHLORIDE LEVEL 112 MEQ/L (98-107); CREATININE FOR GFR 0.78 MG/DL (0.70-1.30); GLOMERULAR FILTRATION RATE > 60.0 (>56); GLUCOSE, FASTING 156 MG/DL (70-100); POTASSIUM SERUM 3.9 MEQ/L (3.5-5.1); SODIUM LEVEL 143 MEQ/L (136-145)
[2022-06-08 07:52] LABS: HEMOGLOBIN 6.6 g/dl (13.5-17.5)
[2022-06-08] MEDS: cefTRIAXone SOD 2 GM in D5W MINI-BAG PLUS 50 ML IV SCH (08:06)
[2022-06-08] MEDS: CHLORHEXIDINE GLUCONATE 0.12 % 15ML UDC (PERIDEX ORAL RINSE) MT SCH ×2 (09:00→20:02)
[2022-06-08] MEDS: LACOSAMIDE 10MG/ML 20ML VIAL (VIMPAT) IV SCH ×2 (09:00→20:02)
[2022-06-08] MEDS ORDERED: VANCOMYCIN HCL 1,000 MG, VIAL MATE ADAPTER 1 EACH in NS 250 ML IV SCH (09:20)
[2022-06-08] MEDS: levETIRAcetam INJection 500 MG in D5W MINI-BAG PLUS 100 ML IV SCH ×2 (09:47→20:02)
[2022-06-08] MEDS: PANTOPRAZOLE SODIUM 40 MG in D5W 50 ML IV SCH ×3 (10:55→19:46)
[2022-06-08] MEDS: BISACODYL 10 MG SUPP PR SCH ×2 (10:55→20:02)
[2022-06-08] MEDS ORDERED: ISOVUE-370 76% 100ML VIAL As Ordered ONE (11:26)
[2022-06-08] MEDS ORDERED: VANCOMYCIN HCL 750 MG, VIAL MATE ADAPTER 1 EACH in D5W 250 ML IV ONE (12:00)
[2022-06-08 12:08] LABS: INR 1.14; PROTHROMBIN TIME 14.8 SECONDS (12.5-14.5)
[2022-06-08 12:09] LABS: PARTIAL THROMBOPLASTIN TIME 33.5 SECONDS (24.8-34.2)
[2022-06-08] MEDS ORDERED: VANCOMYCIN HCL 500 MG in D5W MINI-BAG PLUS 100 ML IV ONE (13:00)
[2022-06-08 14:22] LABS: HEMATOCRIT 28.8 % (42.0-52.0)
[2022-06-08 14:32] LABS: HEMOGLOBIN 9.5 g/dl (13.5-17.5)
[2022-06-08] MEDS ORDERED: FAT EMULSION IV 250 ML IV ONE (18:00)
[2022-06-08] MEDS ORDERED: MULTIVITAMIN -ADULT INJECTION 10 ML, ZINC/COPPER/MANGANESE/SELENIUM 1 ML in AMINO AC/EL... IV SCH (18:00)
[2022-06-08 18:23] LABS: HEMATOCRIT 25.6 % (42.0-52.0); HEMOGLOBIN 8.5 g/dl (13.5-17.5)
[2022-06-08] MEDS: VANCOMYCIN HCL 1,000 MG, VIAL MATE ADAPTER 1 EACH in D5W 250 ML IV SCH (19:46)
[2022-06-08] MEDS: NYSTATIN 100,000 UNITS/GM TOPICAL PWD 15GM TOP SCH (20:03)
[2022-06-09] VITALS (23 sets, daily range): BP systolic 85–108; BP diastolic 46–70
[2022-06-09] MEDS: INSULIN LISPRO (NovoLOG) PER UNIT SC SCH ×5 (00:14→23:52)
[2022-06-09] MEDS: HYDROCORTISONE 100 MG/2 ML VIAL (J1720 PER 1) IV SCH ×5 (00:15→23:52)
[2022-06-09] MEDS: SODIUM CHLORIDE 0.9% INJ 10 ML SYR IV PRN ×2 (00:18→21:48)
[2022-06-09 00:27] LABS: HEMATOCRIT 24.5 % (42.0-52.0); HEMOGLOBIN 8.2 g/dl (13.5-17.5)
[2022-06-09] MEDS: PANTOPRAZOLE SODIUM 40 MG in D5W 50 ML IV SCH ×2 (00:53→05:58)
[2022-06-09] MEDS: ALBUTEROL SULFATE 2.5 MG/0.5 ML INH NEB SOLN NEB SCH ×7 (04:36→23:40)
[2022-06-09] MEDS: SODIUM CHLORIDE HYPERTONIC 3% 15ML NEB SOL INH SCH ×7 (04:36→23:40)
[2022-06-09] MEDS: SODIUM CHLORIDE 0.9% INJ 10 ML SYR IV SCH ×3 (05:53→21:46)
[2022-06-09 06:13] LABS: HEMATOCRIT 24.2 % (42.0-52.0); HEMOGLOBIN 8.1 g/dl (13.5-17.5); MEAN CORPUSCULAR HEMOGLOBIN 29.6 pg (27.0-33.0); MEAN CORPUSCULAR HGB CONC 33.5 g/dl (32.0-36.5); MEAN CORPUSCULAR VOLUME 88.3 fl (80.0-96.0); PLATELET COUNT, AUTOMATED 172 10^3/uL (150-450); RED BLOOD COUNT 2.74 10^6/uL (4.30-6.10); WHITE BLOOD COUNT 9.6 10^3/uL (4.0-10.0)
[2022-06-09 06:45] LABS: BLOOD UREA NITROGEN 34 MG/DL (7-18); CARBON DIOXIDE LEVEL 31 MEQ/L (21-32); CHLORIDE LEVEL 111 MEQ/L (98-107); CREATININE FOR GFR 0.54 MG/DL (0.70-1.30); GLOMERULAR FILTRATION RATE > 60.0 (>56); GLUCOSE, FASTING 143 MG/DL (70-100); SODIUM LEVEL 144 MEQ/L (136-145)
[2022-06-09] MEDS ORDERED: cefTRIAXone SOD 2 GM in D5W MINI-BAG PLUS 50 ML IV SCH (08:00)
[2022-06-09] MEDS: VANCOMYCIN HCL 1,000 MG, VIAL MATE ADAPTER 1 EACH in D5W 250 ML IV SCH ×2 (09:13→20:07)
[2022-06-09] MEDS: BISACODYL 10 MG SUPP PR SCH ×2 (09:17→20:32)
[2022-06-09] MEDS: CHLORHEXIDINE GLUCONATE 0.12 % 15ML UDC (PERIDEX ORAL RINSE) MT SCH ×2 (09:17→20:32)
[2022-06-09] MEDS: NYSTATIN 100,000 UNITS/GM TOPICAL PWD 15GM TOP SCH ×2 (09:18→20:31)
[2022-06-09] MEDS: LACOSAMIDE 10MG/ML 20ML VIAL (VIMPAT) IV SCH ×2 (09:18→20:32)
[2022-06-09] MEDS: levETIRAcetam INJection 500 MG in D5W MINI-BAG PLUS 100 ML IV SCH ×2 (09:39→20:32)
[2022-06-09] MEDS: PANTOPRAZOLE 40MG VIAL IV SCH ×3 (09:57→20:32)
[2022-06-09] MEDS: IPRATROPIUM 0.5MG/ALBUTEROL 2.5MG INH SOL UD 3ML (DUONEB) NEB PRN (11:40)
[2022-06-09 12:37] LABS: HEMOGLOBIN 8.2 g/dl (13.5-17.5)
[2022-06-09 12:45] LABS: APPEARANCE, URINE MANUAL HAZY (CLEAR); COLOR, URINE MANUAL LT YELLOW (YELLOW)
[2022-06-09 12:46] LABS: SPECIFIC GRAVITY,URINE MANUAL 1.005 (1.002-1.035)
[2022-06-09 12:47] LABS: GLUCOSE, URINE (UA) MANUAL NEGATIVE (NEGATIVE); PROTEIN, URINE MANUAL TRACE mg/dL (NEGATIVE)
[2022-06-09 12:48] LABS: BILIRUBIN, URINE MANUAL NEGATIVE (NEGATIVE); BLOOD URINE MANUAL POSITIVE (NEGATIVE); KETONE, URINE MANUAL 1+ mg/dL (NEGATIVE); LEUKOCYTE ESTERASE, URINE MAN TRACE (NEGATIVE); NITRITE, URINE MANUAL NEGATIVE (NEGATIVE); UROBILINOGEN, URINE MANUAL NORMAL (NORMAL)
[2022-06-09 13:06] LABS: SQUAMOUS EPITHELIAL CELL URINE SMALL AMOUNT /hpf (SMALL AMT)
[2022-06-09 13:07] LABS: BACTERIA, URINE MOD AMOUNT; HYALINE CAST, URINE NONE SEEN /lpf (0-1)
[2022-06-09] MEDS ORDERED: IRON SUCROSE 200 MG in NS 100 ML IV ONE (15:00)
[2022-06-09] MEDS ORDERED: AMINO AC/ELECTROLYTE/DEX/CALC 2,000 ML IV SCH (18:00)
[2022-06-09] MEDS ORDERED: FAT EMULSION IV 250 ML IV ONE (18:00)
[2022-06-10] VITALS (16 sets, daily range): BP systolic 95–112; BP diastolic 53–66
[2022-06-10] MEDS: SODIUM CHLORIDE HYPERTONIC 3% 15ML NEB SOL INH SCH ×6 (03:53→23:01)
[2022-06-10] MEDS: ALBUTEROL SULFATE 2.5 MG/0.5 ML INH NEB SOLN NEB SCH ×6 (03:53→23:01)
[2022-06-10] MEDS: HYDROCORTISONE 100 MG/2 ML VIAL (J1720 PER 1) IV SCH ×3 (05:34→22:34)
[2022-06-10] MEDS: SODIUM CHLORIDE 0.9% INJ 10 ML SYR IV SCH ×3 (05:35→22:34)
[2022-06-10] MEDS: INSULIN LISPRO (NovoLOG) PER UNIT SC SCH ×4 (05:38→23:51)
[2022-06-10 06:05] LABS: HEMATOCRIT 23.5 % (42.0-52.0); HEMOGLOBIN 7.6 g/dl (13.5-17.5); MEAN CORPUSCULAR HEMOGLOBIN 29.2 pg (27.0-33.0); MEAN CORPUSCULAR HGB CONC 32.3 g/dl (32.0-36.5); MEAN CORPUSCULAR VOLUME 90.4 fl (80.0-96.0); PLATELET COUNT, AUTOMATED 205 10^3/uL (150-450); WHITE BLOOD COUNT 9.1 10^3/uL (4.0-10.0)
[2022-06-10 06:35] LABS: BLOOD UREA NITROGEN 28 MG/DL (9-23); CALCIUM LEVEL 7.7 MG/DL (8.5-10.1); CARBON DIOXIDE LEVEL 30 MMOL/L (20-31); CHLORIDE LEVEL 108 MMOL/L (98-107); CREATININE FOR GFR 0.52 MG/DL (0.70-1.30); GLOMERULAR FILTRATION RATE > 60.0 (>56); GLUCOSE, FASTING 150 MG/DL (60-100); MAGNESIUM LEVEL 1.7 MG/DL (1.8-2.4); PHOSPHORUS LEVEL 2.7 MG/DL (2.5-4.9); POTASSIUM SERUM 3.8 MMOL/L (3.5-5.1); SODIUM LEVEL 145 MMOL/L (136-145)
[2022-06-10] MEDS ORDERED: VANCOMYCIN HCL 750 MG, VIAL MATE ADAPTER 1 EACH in D5W 250 ML IV SCH (08:00)
[2022-06-10] MEDS: BISACODYL 10 MG SUPP PR SCH ×2 (08:18→20:27)
[2022-06-10] MEDS: CHLORHEXIDINE GLUCONATE 0.12 % 15ML UDC (PERIDEX ORAL RINSE) MT SCH ×2 (08:18→20:26)
[2022-06-10] MEDS: MAG SULF 1GM/100ML (MAG RUN) 1 GM in IV 1 EA IV SCH ×2 (08:59→10:02)
[2022-06-10] MEDS: levETIRAcetam INJection 500 MG in D5W MINI-BAG PLUS 100 ML IV SCH ×2 (08:59→20:26)
[2022-06-10] MEDS: LACOSAMIDE 10MG/ML 20ML VIAL (VIMPAT) IV SCH ×2 (08:59→21:05)
[2022-06-10] MEDS: PANTOPRAZOLE 40MG VIAL IV SCH ×2 (08:59→20:26)
[2022-06-10] MEDS ORDERED: VANCOMYCIN HCL 500 MG in D5W MINI-BAG PLUS 100 ML IV SCH (09:00)
[2022-06-10] MEDS: NYSTATIN 100,000 UNITS/GM TOPICAL PWD 15GM TOP SCH ×2 (09:00→20:27)
[2022-06-10] MEDS ORDERED: FUROSEMIDE 20MG/2ML VIAL (J1940) IV ONE (11:05)
[2022-06-10] MEDS ORDERED: VARIBAR NECTAR 40% w/v 240ML SUSP BTL As Ordered ONE (12:11)
[2022-06-10] MEDS ORDERED: BARIUM SULFATE 700 MG TABLET (E-Z-DISK) As Ordered ONE (12:11)
[2022-06-10] MEDS ORDERED: VARIBAR PUDDING 40% w/v 230ML TUBE As Ordered ONE (12:11)
[2022-06-10] MEDS ORDERED: E-Z-PAQUE 96% w/w SUSP 176GM BTL As Ordered ONE (12:11)
[2022-06-10 16:14] LABS: HEMATOCRIT 28.5 % (42.0-52.0); HEMOGLOBIN 9.3 g/dl (13.5-17.5)
[2022-06-10] MEDS ORDERED: MULTIVITAMIN -ADULT INJECTION 10 ML, ZINC/COPPER/MANGANESE/SELENIUM 1 ML in AMINO AC/EL... IV SCH (18:00)
[2022-06-10] MEDS ORDERED: FAT EMULSION IV 250 ML IV ONE (18:00)
[2022-06-11] VITALS (10 sets, daily range): BP systolic 100–121; BP diastolic 59–73
[2022-06-11] MEDS ORDERED: LORazepam 2 MG/ML VIAL IV STA
[2022-06-11] MEDS: ALBUTEROL SULFATE 2.5 MG/0.5 ML INH NEB SOLN NEB SCH ×6 (03:11→23:42)
[2022-06-11] MEDS: SODIUM CHLORIDE HYPERTONIC 3% 15ML NEB SOL INH SCH ×6 (03:11→23:42)
[2022-06-11] MEDS: HYDROCORTISONE 100 MG/2 ML VIAL (J1720 PER 1) IV SCH ×2 (05:28→17:31)
[2022-06-11] MEDS: SODIUM CHLORIDE 0.9% INJ 10 ML SYR IV SCH ×3 (05:28→21:56)
[2022-06-11] MEDS: INSULIN LISPRO (NovoLOG) PER UNIT SC SCH ×3 (05:37→17:32)
[2022-06-11 05:46] LABS: HEMATOCRIT 27.9 % (42.0-52.0); MEAN CORPUSCULAR HEMOGLOBIN 29.4 pg (27.0-33.0); MEAN CORPUSCULAR HGB CONC 32.3 g/dl (32.0-36.5); MEAN CORPUSCULAR VOLUME 91.2 fl (80.0-96.0); PLATELET COUNT, AUTOMATED 243 10^3/uL (150-450); RED BLOOD COUNT 3.06 10^6/uL (4.30-6.10); WHITE BLOOD COUNT 8.9 10^3/uL (4.0-10.0)
[2022-06-11 06:26] LABS: MAGNESIUM LEVEL 1.9 MG/DL (1.8-2.4)
[2022-06-11 06:38] LABS: BLOOD UREA NITROGEN 28 MG/DL (9-23); CALCIUM LEVEL 7.7 MG/DL (8.5-10.1); CARBON DIOXIDE LEVEL 33 MMOL/L (20-31); CHLORIDE LEVEL 106 MMOL/L (98-107); CREATININE FOR GFR 0.47 MG/DL (0.70-1.30); GLOMERULAR FILTRATION RATE > 60.0 (>56); GLUCOSE, FASTING 153 MG/DL (60-100); POTASSIUM SERUM 3.2 MMOL/L (3.5-5.1); SODIUM LEVEL 146 MMOL/L (136-145)
[2022-06-11] MEDS: KCL 10MEQ/100ML SWI (KRUN) 10 MEQ in IV 1 EA IV SCH ×4 (07:31→12:57)
[2022-06-11] MEDS: levETIRAcetam INJection 500 MG in D5W MINI-BAG PLUS 100 ML IV SCH (08:24)
[2022-06-11] MEDS: LACOSAMIDE 10MG/ML 20ML VIAL (VIMPAT) IV SCH (09:49)
[2022-06-11] MEDS: NYSTATIN 100,000 UNITS/GM TOPICAL PWD 15GM TOP SCH ×2 (09:50→20:40)
[2022-06-11] MEDS: PANTOPRAZOLE 40MG VIAL IV SCH (09:50)
[2022-06-11] MEDS: CHLORHEXIDINE GLUCONATE 0.12 % 15ML UDC (PERIDEX ORAL RINSE) MT SCH ×2 (09:50→20:39)
[2022-06-11] MEDS: BISACODYL 10 MG SUPP PR SCH ×2 (09:50→20:39)
[2022-06-11] MEDS ORDERED: FUROSEMIDE 20MG/2ML VIAL (J1940) IV ONE (10:05)
[2022-06-11] MEDS ORDERED: KCL 10MEQ/100ML SWI (KRUN) 10 MEQ in IV 1 EA IV ONE (14:40)
[2022-06-11] MEDS ORDERED: LIDOCAINE 2% 100MG/5ML SDV (FOR ANES.) As Ordered ONE (14:57)
[2022-06-11] MEDS ORDERED: propofoL 200 MG/20 ML VIAL As Ordered ONE (14:57)
[2022-06-11] MEDS ORDERED: KCL 20MEQ IN 100ML SWI (KRUN) 20 MEQ in IV 1 EA IV ONE ×2 (15:00)
[2022-06-11] MEDS ORDERED: fentaNYL 100 MCG/2 ML INJECTION IV PRN (15:30)
[2022-06-11] MEDS ORDERED: ONDANSETRON 4MG 2ML VIAL IV PRN (15:30)
[2022-06-11] MEDS ORDERED: LR 1,000 ML IV SCH (15:30)
[2022-06-11] MEDS ORDERED: FAT EMULSION IV 250 ML IV ONE (18:00)
[2022-06-11] MEDS: FUROSEMIDE 20MG/2ML VIAL (J1940) IV SCH (18:00)
[2022-06-11] MEDS ORDERED: AMINO AC/ELECTROLYTE/DEX/CALC 2,000 ML IV SCH (18:00)
[2022-06-11] MEDS: levETIRAcetam 250MG TABLET (KEPPRA) GT SCH (20:39)
[2022-06-11] MEDS: LACOSAMIDE 50 MG TAB (VIMPAT) GT SCH (20:39)
[2022-06-12] MEDS: INSULIN LISPRO (NovoLOG) PER UNIT SC SCH ×2 (00:26→05:45)
[2022-06-12 02:31] VITALS: BP 108/63
[2022-06-12] MEDS: FUROSEMIDE 20MG/2ML VIAL (J1940) IV SCH (02:36)
[2022-06-12] MEDS: ALBUTEROL SULFATE 2.5 MG/0.5 ML INH NEB SOLN NEB SCH ×6 (03:22→23:37)
[2022-06-12] MEDS: SODIUM CHLORIDE HYPERTONIC 3% 15ML NEB SOL INH SCH ×6 (03:23→23:37)
[2022-06-12 04:42] VITALS: BP 114/54
[2022-06-12] MEDS: HYDROCORTISONE 100 MG/2 ML VIAL (J1720 PER 1) IV SCH (05:45)
[2022-06-12] MEDS: SODIUM CHLORIDE 0.9% INJ 10 ML SYR IV PRN (05:46)
[2022-06-12] MEDS: SODIUM CHLORIDE 0.9% INJ 10 ML SYR IV SCH ×4 (05:46→21:45)
[2022-06-12 06:21] LABS: HEMATOCRIT 28.7 % (42.0-52.0); HEMOGLOBIN 9.1 g/dl (13.5-17.5); MEAN CORPUSCULAR HEMOGLOBIN 29.3 pg (27.0-33.0); MEAN CORPUSCULAR HGB CONC 31.7 g/dl (32.0-36.5); MEAN CORPUSCULAR VOLUME 92.3 fl (80.0-96.0); PLATELET COUNT, AUTOMATED 261 10^3/uL (150-450); RED BLOOD COUNT 3.11 10^6/uL (4.30-6.10); WHITE BLOOD COUNT 9.6 10^3/uL (4.0-10.0)
[2022-06-12 07:41] LABS: ALBUMIN 2.2 G/DL (3.2-5.2); ALKALINE PHOSPHATASE 65 U/L (46-116); ALT/SGPT 41 U/L (7.0-40); AST/SGOT 23 U/L (<34); BILIRUBIN,DIRECT 0.3 MG/DL (<0.4); BILIRUBIN,TOTAL 0.8 MG/DL (0.3-1.2); BLOOD UREA NITROGEN 27 MG/DL (9-23); CALCIUM LEVEL 8.2 MG/DL (8.5-10.1); CARBON DIOXIDE LEVEL 39 MMOL/L (20-31); CHLORIDE LEVEL 103 MMOL/L (98-107); CREATININE FOR GFR 0.52 MG/DL (0.70-1.30); GLOMERULAR FILTRATION RATE > 60.0 (>56); GLUCOSE, FASTING 107 MG/DL (60-100); MAGNESIUM LEVEL 1.7 MG/DL (1.8-2.4); PHOSPHORUS LEVEL 3.2 MG/DL (2.5-4.9); POTASSIUM SERUM 2.8 MMOL/L (3.5-5.1); SODIUM LEVEL 145 MMOL/L (136-145); TOTAL PROTEIN 4.7 G/DL (5.7-8.2)
[2022-06-12] MEDS: CHLORHEXIDINE GLUCONATE 0.12 % 15ML UDC (PERIDEX ORAL RINSE) MT SCH ×2 (08:28→21:45)
[2022-06-12] MEDS: OMEPRAZOLE SUSPENSION 20MG 10ML ORAL SYRINGE GT SCH (08:28)
[2022-06-12] MEDS: levETIRAcetam 250MG TABLET (KEPPRA) GT SCH ×3 (08:28→22:01)
[2022-06-12] MEDS: LACOSAMIDE 50 MG TAB (VIMPAT) GT SCH ×3 (08:29→22:01)
[2022-06-12] MEDS: BISACODYL 10 MG SUPP PR SCH ×2 (08:29→21:45)
[2022-06-12] MEDS: NYSTATIN 100,000 UNITS/GM TOPICAL PWD 15GM TOP SCH ×2 (08:29→21:46)
[2022-06-12 08:30] VITALS: BP 105/58
[2022-06-12] MEDS ORDERED: MAG SULF 1GM/100ML (MAG RUN) 1 GM in IV 1 EA IV ONE ×2 (09:00→12:00)
[2022-06-12] MEDS ORDERED: POTASSIUM CHLORIDE 10% LIQ 20 MEQ/15 ML UDC GT ONE (09:00)
[2022-06-12] MEDS ORDERED: KCL 10MEQ/100ML SWI (KRUN) 10 MEQ in IV 1 EA IV SCH (10:00)
[2022-06-12] MEDS: KCL 20MEQ IN 100ML SWI (KRUN) 20 MEQ in IV 1 EA IV SCH ×4 (10:31→11:41)
[2022-06-12] MEDS ORDERED: POTASSIUM CHLORIDE 10% LIQ 20 MEQ/15 ML UDC PO ONE ×2 (12:00→15:15)
[2022-06-12 12:43] VITALS: BP 98/62
[2022-06-12] MEDS ORDERED: LIDOCAINE 1% MDV 20ML VIAL As Ordered ONE (13:25)
[2022-06-12 15:05] LABS: BLOOD UREA NITROGEN 24 MG/DL (9-23); CALCIUM LEVEL 8.2 MG/DL (8.5-10.1); CARBON DIOXIDE LEVEL 38 MMOL/L (20-31); CHLORIDE LEVEL 106 MMOL/L (98-107); CREATININE FOR GFR 0.52 MG/DL (0.70-1.30); GLOMERULAR FILTRATION RATE > 60.0 (>56); GLUCOSE, FASTING 106 MG/DL (60-100); MAGNESIUM LEVEL 2.1 MG/DL (1.8-2.4); PHOSPHORUS LEVEL 2.6 MG/DL (2.5-4.9); POTASSIUM SERUM 3.3 MMOL/L (3.5-5.1); SODIUM LEVEL 147 MMOL/L (136-145)
[2022-06-12 15:51] VITALS: BP 97/58
[2022-06-12 19:01] LABS: HEMOGLOBIN A1c 5.2 % (4.0-6.0)
[2022-06-12 19:53] VITALS: BP 105/62
[2022-06-13 00:06] VITALS: BP 108/68
[2022-06-13] MEDS: SODIUM CHLORIDE HYPERTONIC 3% 15ML NEB SOL INH SCH ×6 (02:59→23:36)
[2022-06-13] MEDS: ALBUTEROL SULFATE 2.5 MG/0.5 ML INH NEB SOLN NEB SCH ×6 (02:59→23:36)
[2022-06-13 03:45] VITALS: BP 102/62
[2022-06-13] MEDS: SODIUM CHLORIDE 0.9% INJ 10 ML SYR IV SCH ×2 (05:39→18:14)
[2022-06-13 05:52] LABS: HEMATOCRIT 31.5 % (42.0-52.0); HEMOGLOBIN 9.7 g/dl (13.5-17.5); MEAN CORPUSCULAR HEMOGLOBIN 29.1 pg (27.0-33.0); MEAN CORPUSCULAR HGB CONC 30.8 g/dl (32.0-36.5); MEAN CORPUSCULAR VOLUME 94.6 fl (80.0-96.0); PLATELET COUNT, AUTOMATED 236 10^3/uL (150-450); RED BLOOD COUNT 3.33 10^6/uL (4.30-6.10); WHITE BLOOD COUNT 11.2 10^3/uL (4.0-10.0)
[2022-06-13 06:23] LABS: BLOOD UREA NITROGEN 26 MG/DL (9-23); CALCIUM LEVEL 7.5 MG/DL (8.5-10.1); CARBON DIOXIDE LEVEL 34 MMOL/L (20-31); CHLORIDE LEVEL 108 MMOL/L (98-107); CREATININE FOR GFR 0.52 MG/DL (0.70-1.30); GLOMERULAR FILTRATION RATE > 60.0 (>56); GLUCOSE, FASTING 90 MG/DL (60-100); MAGNESIUM LEVEL 1.8 MG/DL (1.8-2.4); PHOSPHORUS LEVEL 2.3 MG/DL (2.5-4.9); POTASSIUM SERUM 3.4 MMOL/L (3.5-5.1); SODIUM LEVEL 146 MMOL/L (136-145)
[2022-06-13] MEDS ORDERED: MAG SULF 1GM/100ML (MAG RUN) 1 GM in IV 1 EA IV ONE (08:00)
[2022-06-13 08:07] VITALS: BP 110/63
[2022-06-13] MEDS ORDERED: HYDROCORTISONE 100 MG/2 ML VIAL (J1720 PER 1) IV SCH (09:00)
[2022-06-13] MEDS ORDERED: KCL 10MEQ/100ML SWI (KRUN) 10 MEQ in IV 1 EA IV ONE (09:00)
[2022-06-13] MEDS: OMEPRAZOLE SUSPENSION 20MG 10ML ORAL SYRINGE GT SCH (09:05)
[2022-06-13] MEDS: BISACODYL 10 MG SUPP PR SCH ×2 (09:05→20:44)
[2022-06-13] MEDS: CHLORHEXIDINE GLUCONATE 0.12 % 15ML UDC (PERIDEX ORAL RINSE) MT SCH ×2 (09:06→20:23)
[2022-06-13] MEDS: POTASSIUM CHLORIDE 10% LIQ 20 MEQ/15 ML UDC PO SCH ×2 (09:06→20:24)
[2022-06-13] MEDS: LACOSAMIDE 50 MG TAB (VIMPAT) GT SCH ×2 (09:06→20:24)
[2022-06-13] MEDS: levETIRAcetam 250MG TABLET (KEPPRA) GT SCH ×2 (09:07→20:24)
[2022-06-13] MEDS: NYSTATIN 100,000 UNITS/GM TOPICAL PWD 15GM TOP SCH ×2 (09:08→20:24)
[2022-06-13] MEDS ORDERED: POTASSIUM PHOSPHATE INJ 15 MMOL in D5W 250 ML IV ONE (10:00)
[2022-06-13] MEDS ORDERED: FUROSEMIDE 40MG/4ML VIAL (J1940) IV ONE (15:15)
[2022-06-13] MEDS: TORSEMIDE 20 MG TAB PO SCH (16:03)
[2022-06-13 16:08] VITALS: BP 92/54
[2022-06-13] MEDS ORDERED: ACETAMINOPHEN 325 MG/10.15 ML UDC PO ONE (17:55)
[2022-06-13 20:00] VITALS: BP 107/55
[2022-06-14] MEDS: ALBUTEROL SULFATE 2.5 MG/0.5 ML INH NEB SOLN NEB SCH ×6 (03:34→23:32)
[2022-06-14] MEDS: SODIUM CHLORIDE HYPERTONIC 3% 15ML NEB SOL INH SCH ×6 (03:34→23:32)
[2022-06-14 04:00] VITALS: BP 100/63
[2022-06-14] MEDS: ACETAMINOPHEN 650MG SUPP PR PRN (04:16)
[2022-06-14 07:27] LABS: HEMATOCRIT 32.1 % (42.0-52.0); MEAN CORPUSCULAR HEMOGLOBIN 29.9 pg (27.0-33.0); MEAN CORPUSCULAR HGB CONC 31.2 g/dl (32.0-36.5); MEAN CORPUSCULAR VOLUME 95.8 fl (80.0-96.0); PLATELET COUNT, AUTOMATED 228 10^3/uL (150-450); RED BLOOD COUNT 3.35 10^6/uL (4.30-6.10); WHITE BLOOD COUNT 9.5 10^3/uL (4.0-10.0)
[2022-06-14 08:01] LABS: BLOOD UREA NITROGEN 22 MG/DL (9-23); CALCIUM LEVEL 7.7 MG/DL (8.5-10.1); CARBON DIOXIDE LEVEL 29 MMOL/L (20-31); CHLORIDE LEVEL 106 MMOL/L (98-107); CREATININE FOR GFR 0.57 MG/DL (0.70-1.30); GLOMERULAR FILTRATION RATE > 60.0 (>56); GLUCOSE, FASTING 103 MG/DL (60-100); PHOSPHORUS LEVEL 2.5 MG/DL (2.5-4.9); POTASSIUM SERUM 3.4 MMOL/L (3.5-5.1); SODIUM LEVEL 143 MMOL/L (136-145)
[2022-06-14 08:36] VITALS: BP 96/53
[2022-06-14] MEDS: CEFEPIME HCL 1 GM in D5W MINI-BAG PLUS 50 ML IV SCH ×2 (08:40→16:51)
[2022-06-14] MEDS: TORSEMIDE 20 MG TAB PO SCH ×2 (08:42→08:48)
[2022-06-14] MEDS: OMEPRAZOLE SUSPENSION 20MG 10ML ORAL SYRINGE GT SCH (08:42)
[2022-06-14] MEDS: LACOSAMIDE 50 MG TAB (VIMPAT) GT SCH ×2 (08:45→20:53)
[2022-06-14] MEDS: predniSONE 10 MG TAB PO SCH (08:46)
[2022-06-14] MEDS: CHLORHEXIDINE GLUCONATE 0.12 % 15ML UDC (PERIDEX ORAL RINSE) MT SCH ×2 (08:46→20:53)
[2022-06-14] MEDS: BISACODYL 10 MG SUPP PR SCH ×3 (08:46→20:54)
[2022-06-14] MEDS: levETIRAcetam 250MG TABLET (KEPPRA) GT SCH ×2 (08:46→20:53)
[2022-06-14] MEDS: POTASSIUM CHLORIDE 10% LIQ 20 MEQ/15 ML UDC PO SCH ×2 (08:47→20:52)
[2022-06-14] MEDS: NYSTATIN 100,000 UNITS/GM TOPICAL PWD 15GM TOP SCH ×2 (08:48→20:54)
[2022-06-14 11:52] LABS: APPEARANCE, URINE MANUAL CLEAR (CLEAR); COLOR, URINE MANUAL YELLOW (YELLOW)
[2022-06-14 11:53] LABS: PH,URINE MAN 8.5 UNITS (5.0 - 7.0); SPECIFIC GRAVITY,URINE MANUAL 1.005 (1.002-1.035)
[2022-06-14 11:54] LABS: BILIRUBIN, URINE MANUAL NEGATIVE (NEGATIVE); BLOOD URINE MANUAL TRACE (NEGATIVE); GLUCOSE, URINE (UA) MANUAL NEGATIVE (NEGATIVE); KETONE, URINE MANUAL NEGATIVE (NEGATIVE); LEUKOCYTE ESTERASE, URINE MAN NEGATIVE (NEGATIVE); NITRITE, URINE MANUAL NEGATIVE (NEGATIVE); PROTEIN, URINE MANUAL NEGATIVE (NEGATIVE); UROBILINOGEN, URINE MANUAL NORMAL (NORMAL)
[2022-06-14 12:12] LABS: BACTERIA, URINE SMALL AMOUNT; HYALINE CAST, URINE NONE SEEN /lpf (0-1); RBC, URINE 0-1 /hpf (0-3); SQUAMOUS EPITHELIAL CELL URINE NONE SEEN /hpf (SMALL AMT); WBC, URINE NONE SEEN /hpf (0-3)
[2022-06-14] MEDS: MIDODRINE 5 MG TAB PO SCH ×2 (12:41→16:51)
[2022-06-14 16:49] VITALS: BP 102/57
[2022-06-14] MEDS: SODIUM CHLORIDE 0.9% INJ 10 ML SYR IV SCH (17:57)
[2022-06-14 20:00] VITALS: BP 106/60
[2022-06-15] MEDS: CEFEPIME HCL 1 GM in D5W MINI-BAG PLUS 50 ML IV SCH ×3 (01:01→15:09)
[2022-06-15] MEDS: SODIUM CHLORIDE 0.9% INJ 10 ML SYR IV PRN (01:47)
[2022-06-15 04:00] VITALS: BP 116/65
[2022-06-15] MEDS: ALBUTEROL SULFATE 2.5 MG/0.5 ML INH NEB SOLN NEB SCH ×5 (04:25→20:00)
[2022-06-15] MEDS: SODIUM CHLORIDE HYPERTONIC 3% 15ML NEB SOL INH SCH ×5 (04:25→20:00)
[2022-06-15] MEDS: ACETAMINOPHEN 650MG SUPP PR PRN (04:46)
[2022-06-15 06:44] LABS: HEMOGLOBIN 9.4 g/dl (13.5-17.5); MEAN CORPUSCULAR HEMOGLOBIN 29.6 pg (27.0-33.0); MEAN CORPUSCULAR HGB CONC 31.3 g/dl (32.0-36.5); MEAN CORPUSCULAR VOLUME 94.3 fl (80.0-96.0); PLATELET COUNT, AUTOMATED 265 10^3/uL (150-450); RED BLOOD COUNT 3.18 10^6/uL (4.30-6.10); WHITE BLOOD COUNT 8.5 10^3/uL (4.0-10.0)
[2022-06-15 07:13] LABS: BLOOD UREA NITROGEN 19 MG/DL (9-23); CALCIUM LEVEL 7.3 MG/DL (8.5-10.1); CARBON DIOXIDE LEVEL 28 MMOL/L (20-31); CHLORIDE LEVEL 111 MMOL/L (98-107); CREATININE FOR GFR 0.56 MG/DL (0.70-1.30); GLOMERULAR FILTRATION RATE > 60.0 (>56); GLUCOSE, FASTING 96 MG/DL (60-100); MAGNESIUM LEVEL 1.7 MG/DL (1.8-2.4); PHOSPHORUS LEVEL 2.3 MG/DL (2.5-4.9); POTASSIUM SERUM 3.6 MMOL/L (3.5-5.1); SODIUM LEVEL 146 MMOL/L (136-145)
[2022-06-15 08:00] VITALS: BP 120/71
[2022-06-15 08:08] VITALS: BP 103/63
[2022-06-15] MEDS: OMEPRAZOLE SUSPENSION 20MG 10ML ORAL SYRINGE GT SCH (08:19)
[2022-06-15] MEDS: levETIRAcetam 250MG TABLET (KEPPRA) GT SCH ×2 (08:20→20:24)
[2022-06-15] MEDS: CHLORHEXIDINE GLUCONATE 0.12 % 15ML UDC (PERIDEX ORAL RINSE) MT SCH ×2 (08:20→20:52)
[2022-06-15] MEDS: predniSONE 10 MG TAB PO SCH (08:20)
[2022-06-15] MEDS: MIDODRINE 5 MG TAB PO SCH ×3 (08:21→15:08)
[2022-06-15] MEDS: POTASSIUM CHLORIDE 10% LIQ 20 MEQ/15 ML UDC PO SCH ×2 (08:21→20:25)
[2022-06-15] MEDS: LACOSAMIDE 50 MG TAB (VIMPAT) GT SCH ×2 (08:21→20:23)
[2022-06-15] MEDS: BISACODYL 10 MG SUPP PR SCH ×2 (08:22→20:25)
[2022-06-15] MEDS: TORSEMIDE 20 MG TAB PO SCH (08:22)
[2022-06-15] MEDS: NYSTATIN 100,000 UNITS/GM TOPICAL PWD 15GM TOP SCH ×2 (08:23→20:26)
[2022-06-15] MEDS: FERROUS SULFATE 325MG TAB PO SCH (09:00)
[2022-06-15] MEDS ORDERED: MAGNESIUM OXIDE 400MG TAB (MAG-OX) GT ONE (10:00)
[2022-06-15] MEDS ORDERED: POTASSIUM CHLORIDE 10% LIQ 20 MEQ/15 ML UDC PO ONE (10:00)
[2022-06-15 11:12] VITALS: BP 117/78
[2022-06-15] MEDS: DOCUSATE SOD LIQ 100MG/10ML UDC GT SCH ×2 (11:28→20:24)
[2022-06-15] MEDS ORDERED: POTASSIUM PHOSPHATE INJ 15 MMOL in D5W 250 ML IV ONE (12:00)
[2022-06-15] MEDS: HEPARIN SOD (PORCINE) 5000UNITS/ML 1ML VIAL/SYRINGE SQ SCH ×2 (13:34→20:30)
[2022-06-15 14:15] VITALS: BP 151/87
[2022-06-15] MEDS: SODIUM CHLORIDE 0.9% INJ 10 ML SYR IV SCH (15:10)
[2022-06-15] MEDS: FUROSEMIDE 40MG/4ML VIAL (J1940) IV SCH (17:07)
[2022-06-15 19:54] VITALS: BP 104/63
[2022-06-16] MEDS: CEFEPIME HCL 1 GM in D5W MINI-BAG PLUS 50 ML IV SCH ×2 (00:25→08:33)
[2022-06-16] MEDS: ALBUTEROL SULFATE 2.5 MG/0.5 ML INH NEB SOLN NEB SCH ×6 (03:41→21:54)
[2022-06-16] MEDS: SODIUM CHLORIDE HYPERTONIC 3% 15ML NEB SOL INH SCH ×6 (03:41→21:54)
[2022-06-16] MEDS: HEPARIN SOD (PORCINE) 5000UNITS/ML 1ML VIAL/SYRINGE SQ SCH ×3 (05:25→20:45)
[2022-06-16 05:36] VITALS: BP 110/58
[2022-06-16] MEDS: DOCUSATE SOD LIQ 100MG/10ML UDC GT SCH ×2 (08:31→20:40)
[2022-06-16] MEDS: levETIRAcetam 250MG TABLET (KEPPRA) GT SCH ×2 (08:32→20:39)
[2022-06-16] MEDS: POTASSIUM CHLORIDE 10% LIQ 20 MEQ/15 ML UDC PO SCH ×2 (08:33→20:40)
[2022-06-16] MEDS: OMEPRAZOLE SUSPENSION 20MG 10ML ORAL SYRINGE GT SCH (08:34)
[2022-06-16] MEDS: CHLORHEXIDINE GLUCONATE 0.12 % 15ML UDC (PERIDEX ORAL RINSE) MT SCH ×2 (08:35→20:45)
[2022-06-16] MEDS: BISACODYL 10 MG SUPP PR SCH ×2 (08:35→20:39)
[2022-06-16] MEDS: LACOSAMIDE 50 MG TAB (VIMPAT) GT SCH ×2 (08:36→20:39)
[2022-06-16] MEDS: predniSONE 10 MG TAB PO SCH (08:36)
[2022-06-16] MEDS: MIDODRINE 5 MG TAB PO SCH ×3 (08:37→16:06)
[2022-06-16 08:46] LABS: HEMATOCRIT 33.3 % (42.0-52.0); HEMOGLOBIN 10.5 g/dl (13.5-17.5); MEAN CORPUSCULAR HEMOGLOBIN 29.9 pg (27.0-33.0); MEAN CORPUSCULAR HGB CONC 31.5 g/dl (32.0-36.5); MEAN CORPUSCULAR VOLUME 94.9 fl (80.0-96.0); PLATELET COUNT, AUTOMATED 275 10^3/uL (150-450); RED BLOOD COUNT 3.51 10^6/uL (4.30-6.10); WHITE BLOOD COUNT 8.6 10^3/uL (4.0-10.0)
[2022-06-16] MEDS: FERROUS SULFATE 300MG/5ML UDC LIQUID GT SCH (09:00)
[2022-06-16] MEDS ORDERED: ASPIRIN 81MG ENTERIC TABLET PO SCH (09:00)
[2022-06-16] MEDS: FUROSEMIDE 40MG/4ML VIAL (J1940) IV SCH ×2 (09:00→17:00)
[2022-06-16] MEDS: FERROUS SULFATE 325MG TAB PO SCH (09:00)
[2022-06-16] MEDS: NYSTATIN 100,000 UNITS/GM TOPICAL PWD 15GM TOP SCH ×2 (09:08→20:45)
[2022-06-16 09:21] LABS: BLOOD UREA NITROGEN 31 MG/DL (9-23); CALCIUM LEVEL 7.6 MG/DL (8.5-10.1); CARBON DIOXIDE LEVEL 26 MMOL/L (20-31); CHLORIDE LEVEL 106 MMOL/L (98-107); CREATININE FOR GFR 0.61 MG/DL (0.70-1.30); GLOMERULAR FILTRATION RATE > 60.0 (>56); GLUCOSE, FASTING 102 MG/DL (60-100); MAGNESIUM LEVEL 1.7 MG/DL (1.8-2.4); PHOSPHORUS LEVEL 2.4 MG/DL (2.5-4.9); SODIUM LEVEL 141 MMOL/L (136-145)
[2022-06-16] MEDS: CEFDINIR 300 MG CAP (OMNICEF) GT SCH ×2 (12:42→20:38)
[2022-06-16] MEDS: ACETAMINOPHEN 650MG SUPP PR PRN ×2 (12:42→13:37)
[2022-06-16] MEDS ORDERED: MAG SULF 1GM/100ML (MAG RUN) 1 GM in IV 1 EA IV ONE (13:00)
[2022-06-16] MEDS: metroNIDAZOLE (FLAGYL) 500MG TABLET GT SCH ×2 (13:37→20:45)
[2022-06-16] MEDS: SODIUM CHLORIDE 0.9% INJ 10 ML SYR IV SCH (15:01)
[2022-06-16 15:30] VITALS: BP 76/49
[2022-06-16 16:00] VITALS: BP 88/56
[2022-06-16] MEDS ORDERED: CEFEPIME HCL 2 GM in D5W MINI-BAG PLUS 50 ML IV SCH (16:00)
[2022-06-16] MEDS: ATORVASTATIN 20 MG TAB PO SCH (16:06)
[2022-06-16 18:59] VITALS: BP 92/60
[2022-06-16 21:41] VITALS: BP 98/63
[2022-06-17] MEDS: ALBUTEROL SULFATE 2.5 MG/0.5 ML INH NEB SOLN NEB SCH ×6 (01:24→21:22)
[2022-06-17] MEDS: SODIUM CHLORIDE HYPERTONIC 3% 15ML NEB SOL INH SCH ×6 (01:24→21:22)
[2022-06-17] MEDS: HEPARIN SOD (PORCINE) 5000UNITS/ML 1ML VIAL/SYRINGE SQ SCH ×3 (05:32→21:35)
[2022-06-17] MEDS: metroNIDAZOLE (FLAGYL) 500MG TABLET GT SCH ×3 (05:32→21:35)
[2022-06-17 06:00] VITALS: BP 90/62
[2022-06-17] MEDS ORDERED: MAG SULF 1GM/100ML (MAG RUN) 1 GM in IV 1 EA IV ONE (08:00)
[2022-06-17 08:26] LABS: BASO % 0.1 % (0.0-1.0); EOS # 0.1 10^3/uL (0.0-0.5); EOS % 1.8 % (0.0-3.0); HEMATOCRIT 32.6 % (42.0-52.0); HEMOGLOBIN 10.3 g/dl (13.5-17.5); LYMPH # 1.8 10^3/uL (1.5-5.0); LYMPH % 24.3 % (24.0-44.0); MEAN CORPUSCULAR HEMOGLOBIN 29.9 pg (27.0-33.0); MEAN CORPUSCULAR HGB CONC 31.6 g/dl (32.0-36.5); MEAN CORPUSCULAR VOLUME 94.8 fl (80.0-96.0); MONO # 0.9 10^3/uL (0.0-0.8); MONO % 11.2 % (2.0-8.0); NEUTROPHILS # 4.7 10^3/uL (1.5-8.5); NEUTROPHILS % 61.9 % (36.0-66.0); PLATELET COUNT, AUTOMATED 279 10^3/uL (150-450); RED BLOOD COUNT 3.44 10^6/uL (4.30-6.10); WHITE BLOOD COUNT 7.6 10^3/uL (4.0-10.0)
[2022-06-17 08:39] VITALS: BP 82/49
[2022-06-17] MEDS: DOCUSATE SOD LIQ 100MG/10ML UDC GT SCH ×2 (08:52→19:41)
[2022-06-17] MEDS: FERROUS SULFATE 300MG/5ML UDC LIQUID GT SCH (08:52)
[2022-06-17] MEDS: levETIRAcetam 250MG TABLET (KEPPRA) GT SCH ×2 (08:53→21:36)
[2022-06-17] MEDS: OMEPRAZOLE SUSPENSION 20MG 10ML ORAL SYRINGE GT SCH (08:53)
[2022-06-17] MEDS: CEFDINIR 300 MG CAP (OMNICEF) GT SCH ×2 (08:53→21:35)
[2022-06-17] MEDS: predniSONE 10 MG TAB PO SCH (08:53)
[2022-06-17] MEDS: CHLORHEXIDINE GLUCONATE 0.12 % 15ML UDC (PERIDEX ORAL RINSE) MT SCH (08:53)
[2022-06-17] MEDS: K-PHOS NEUTRAL 250MG TABLET (SOD.PHOSPHATE/POT.PHOSPHATE) GT SCH ×3 (08:54→21:46)
[2022-06-17] MEDS: BISACODYL 10 MG SUPP PR SCH ×2 (08:54→19:42)
[2022-06-17] MEDS: POTASSIUM CHLORIDE 10% LIQ 20 MEQ/15 ML UDC PO SCH ×2 (08:54→21:44)
[2022-06-17] MEDS: ATORVASTATIN 20 MG TAB PO SCH (08:54)
[2022-06-17] MEDS: NYSTATIN 100,000 UNITS/GM TOPICAL PWD 15GM TOP SCH ×2 (08:54→21:46)
[2022-06-17] MEDS: FUROSEMIDE 40MG/4ML VIAL (J1940) IV SCH (08:55)
[2022-06-17] MEDS: LACOSAMIDE 50 MG TAB (VIMPAT) GT SCH ×2 (08:55→21:35)
[2022-06-17 09:15] VITALS: BP 80/52
[2022-06-17] MEDS ORDERED: NS 500 ML IV SCH (09:15)
[2022-06-17] MEDS: MIDODRINE 5 MG TAB PO SCH ×3 (09:16→15:32)
[2022-06-17] MEDS: ACETAMINOPHEN 650MG SUPP PR PRN (09:17)
[2022-06-17 09:45] VITALS: BP 88/56
[2022-06-17 09:50] LABS: BLOOD UREA NITROGEN 30 MG/DL (9-23); CALCIUM LEVEL 7.9 MG/DL (8.5-10.1); CARBON DIOXIDE LEVEL 26 MMOL/L (20-31); CHLORIDE LEVEL 106 MMOL/L (98-107); CREATININE FOR GFR 0.66 MG/DL (0.70-1.30); GLOMERULAR FILTRATION RATE > 60.0 (>56); GLUCOSE, FASTING 90 MG/DL (60-100); POTASSIUM SERUM 4.1 MMOL/L (3.5-5.1); SODIUM LEVEL 141 MMOL/L (136-145)
[2022-06-17] MEDS ORDERED: HYDROCORTISONE 100 MG/2 ML VIAL (J1720 PER 1) IV ONE (14:45)
[2022-06-17 15:32] VITALS: BP 97/77
[2022-06-17] MEDS: SODIUM CHLORIDE 0.9% INJ 10 ML SYR IV SCH (15:32)
[2022-06-17] MEDS ORDERED: ISOVUE-370 76% 100ML VIAL As Ordered ONE (17:01)
[2022-06-17 22:00] VITALS: BP 97/69
[2022-06-18] MEDS: ALBUTEROL SULFATE 2.5 MG/0.5 ML INH NEB SOLN NEB SCH ×7 (00:28→23:41)
[2022-06-18] MEDS: SODIUM CHLORIDE HYPERTONIC 3% 15ML NEB SOL INH SCH ×7 (00:29→23:41)
[2022-06-18] MEDS: CHLORHEXIDINE GLUCONATE 0.12 % 15ML UDC (PERIDEX ORAL RINSE) MT SCH ×3 (01:08→22:18)
[2022-06-18] MEDS: metroNIDAZOLE (FLAGYL) 500MG TABLET GT SCH ×3 (05:13→22:19)
[2022-06-18] MEDS: HEPARIN SOD (PORCINE) 5000UNITS/ML 1ML VIAL/SYRINGE SQ SCH ×3 (05:13→22:20)
[2022-06-18 06:00] VITALS: BP 99/65
[2022-06-18 06:12] LABS: HEMATOCRIT 31.6 % (42.0-52.0); MEAN CORPUSCULAR HEMOGLOBIN 29.8 pg (27.0-33.0); MEAN CORPUSCULAR HGB CONC 31.6 g/dl (32.0-36.5); PLATELET COUNT, AUTOMATED 269 10^3/uL (150-450); RED BLOOD COUNT 3.36 10^6/uL (4.30-6.10); WHITE BLOOD COUNT 7.9 10^3/uL (4.0-10.0)
[2022-06-18 07:01] LABS: BLOOD UREA NITROGEN 34 MG/DL (9-23); CALCIUM LEVEL 7.8 MG/DL (8.5-10.1); CARBON DIOXIDE LEVEL 28 MMOL/L (20-31); CHLORIDE LEVEL 109 MMOL/L (98-107); CREATININE FOR GFR 0.55 MG/DL (0.70-1.30); GLOMERULAR FILTRATION RATE > 60.0 (>56); GLUCOSE, FASTING 115 MG/DL (60-100); MAGNESIUM LEVEL 1.8 MG/DL (1.8-2.4); POTASSIUM SERUM 3.8 MMOL/L (3.5-5.1); SODIUM LEVEL 144 MMOL/L (136-145)
[2022-06-18] MEDS: MIDODRINE 5 MG TAB PO SCH ×3 (08:55→16:17)
[2022-06-18] MEDS: LACOSAMIDE 50 MG TAB (VIMPAT) GT SCH ×2 (08:56→22:19)
[2022-06-18] MEDS: levETIRAcetam 250MG TABLET (KEPPRA) GT SCH ×2 (08:58→22:19)
[2022-06-18] MEDS: ATORVASTATIN 20 MG TAB PO SCH (08:59)
[2022-06-18] MEDS: DOCUSATE SOD LIQ 100MG/10ML UDC GT SCH ×2 (09:00→22:18)
[2022-06-18] MEDS: BISACODYL 10 MG SUPP PR SCH ×2 (09:00→22:17)
[2022-06-18] MEDS: predniSONE 10 MG TAB PO SCH (09:00)
[2022-06-18] MEDS: CEFDINIR 300 MG CAP (OMNICEF) GT SCH ×2 (09:01→22:16)
[2022-06-18] MEDS: K-PHOS NEUTRAL 250MG TABLET (SOD.PHOSPHATE/POT.PHOSPHATE) GT SCH ×3 (09:01→22:19)
[2022-06-18] MEDS: FERROUS SULFATE 300MG/5ML UDC LIQUID GT SCH (09:03)
[2022-06-18] MEDS: POTASSIUM CHLORIDE 10% LIQ 20 MEQ/15 ML UDC PO SCH ×2 (09:03→22:19)
[2022-06-18] MEDS: OMEPRAZOLE SUSPENSION 20MG 10ML ORAL SYRINGE GT SCH (09:03)
[2022-06-18] MEDS: NYSTATIN 100,000 UNITS/GM TOPICAL PWD 15GM TOP SCH ×2 (12:04→22:17)
[2022-06-18 12:34] VITALS: BP 114/74
[2022-06-18] MEDS: ACETAMINOPHEN 650MG SUPP PR PRN (12:39)
[2022-06-18 14:00] VITALS: BP 135/94
[2022-06-18] MEDS: SODIUM CHLORIDE 0.9% INJ 10 ML SYR IV SCH (16:18)
[2022-06-18 19:45] VITALS: BP 130/90
[2022-06-19] MEDS: SODIUM CHLORIDE HYPERTONIC 3% 15ML NEB SOL INH SCH ×5 (04:00→20:30)
[2022-06-19] MEDS: ALBUTEROL SULFATE 2.5 MG/0.5 ML INH NEB SOLN NEB SCH ×5 (04:00→20:30)
[2022-06-19] MEDS: HEPARIN SOD (PORCINE) 5000UNITS/ML 1ML VIAL/SYRINGE SQ SCH ×3 (06:19→22:31)
[2022-06-19] MEDS: metroNIDAZOLE (FLAGYL) 500MG TABLET GT SCH (06:19)
[2022-06-19 06:43] VITALS: BP 98/64
[2022-06-19 07:45] LABS: BASO % 0.1 % (0.0-1.0); EOS # 0.2 10^3/uL (0.0-0.5); EOS % 1.7 % (0.0-3.0); HEMOGLOBIN 10.9 g/dl (13.5-17.5); LYMPH # 2.6 10^3/uL (1.5-5.0); LYMPH % 27.3 % (24.0-44.0); MEAN CORPUSCULAR HEMOGLOBIN 29.7 pg (27.0-33.0); MEAN CORPUSCULAR HGB CONC 31.1 g/dl (32.0-36.5); MEAN CORPUSCULAR VOLUME 95.4 fl (80.0-96.0); MONO # 0.9 10^3/uL (0.0-0.8); MONO % 9.2 % (2.0-8.0); NEUTROPHILS # 5.8 10^3/uL (1.5-8.5); NEUTROPHILS % 60.8 % (36.0-66.0); PLATELET COUNT, AUTOMATED 246 10^3/uL (150-450); RED BLOOD COUNT 3.67 10^6/uL (4.30-6.10); WHITE BLOOD COUNT 9.6 10^3/uL (4.0-10.0)
[2022-06-19 08:10] LABS: ERYTHROCYTE SEDIMENTATION RATE 42 mm/hr (0-20)
[2022-06-19 08:17] LABS: BLOOD UREA NITROGEN 26 MG/DL (9-23); CARBON DIOXIDE LEVEL 27 MMOL/L (20-31); CHLORIDE LEVEL 105 MMOL/L (98-107); CREATININE FOR GFR 0.57 MG/DL (0.70-1.30); GLOMERULAR FILTRATION RATE > 60.0 (>56); GLUCOSE, FASTING 91 MG/DL (60-100); SODIUM LEVEL 140 MMOL/L (136-145)
[2022-06-19] MEDS: OMEPRAZOLE SUSPENSION 20MG 10ML ORAL SYRINGE GT SCH (08:46)
[2022-06-19] MEDS: CHLORHEXIDINE GLUCONATE 0.12 % 15ML UDC (PERIDEX ORAL RINSE) MT SCH (08:47)
[2022-06-19] MEDS: BISACODYL 10 MG SUPP PR SCH ×2 (08:47→21:32)
[2022-06-19] MEDS: POTASSIUM CHLORIDE 10% LIQ 20 MEQ/15 ML UDC PO SCH ×2 (08:47→21:32)
[2022-06-19] MEDS: MIDODRINE 5 MG TAB PO SCH ×3 (08:48→16:15)
[2022-06-19] MEDS: DOCUSATE SOD LIQ 100MG/10ML UDC GT SCH ×2 (08:48→21:32)
[2022-06-19] MEDS: predniSONE 10 MG TAB PO SCH (08:48)
[2022-06-19] MEDS: levETIRAcetam 250MG TABLET (KEPPRA) GT SCH (08:48)
[2022-06-19] MEDS: K-PHOS NEUTRAL 250MG TABLET (SOD.PHOSPHATE/POT.PHOSPHATE) GT SCH ×3 (08:48→21:32)
[2022-06-19] MEDS: LACOSAMIDE 50 MG TAB (VIMPAT) GT SCH ×2 (08:48→21:32)
[2022-06-19] MEDS: FERROUS SULFATE 300MG/5ML UDC LIQUID GT SCH (08:48)
[2022-06-19] MEDS: ATORVASTATIN 20 MG TAB PO SCH (08:49)
[2022-06-19] MEDS: ACETAMINOPHEN 650MG SUPP PR PRN ×2 (08:49→15:04)
[2022-06-19] MEDS: NYSTATIN 100,000 UNITS/GM TOPICAL PWD 15GM TOP SCH (08:50)
[2022-06-19] MEDS: DIVALPROEX SPRINKLE 125 MG CAP GT SCH ×2 (13:05→21:33)
[2022-06-19 14:45] VITALS: BP 89/61
[2022-06-19] MEDS: SODIUM CHLORIDE 0.9% INJ 10 ML SYR IV SCH (16:15)
[2022-06-19 22:00] VITALS: BP 148/82
[2022-06-20] MEDS: NYSTATIN 100,000 UNITS/GM TOPICAL PWD 15GM TOP SCH ×3 (00:15→21:09)
[2022-06-20] MEDS: CHLORHEXIDINE GLUCONATE 0.12 % 15ML UDC (PERIDEX ORAL RINSE) MT SCH ×3 (00:15→20:51)
[2022-06-20] MEDS: ALBUTEROL SULFATE 2.5 MG/0.5 ML INH NEB SOLN NEB SCH ×6 (01:01→20:07)
[2022-06-20] MEDS: SODIUM CHLORIDE HYPERTONIC 3% 15ML NEB SOL INH SCH ×6 (01:01→20:07)
[2022-06-20] MEDS: HEPARIN SOD (PORCINE) 5000UNITS/ML 1ML VIAL/SYRINGE SQ SCH ×3 (05:31→22:01)
[2022-06-20 06:00] VITALS: BP 101/61
[2022-06-20] MEDS: ACETAMINOPHEN 650MG SUPP PR PRN ×3 (06:08→16:06)
[2022-06-20] MEDS: OMEPRAZOLE SUSPENSION 20MG 10ML ORAL SYRINGE GT SCH (08:52)
[2022-06-20] MEDS: LACOSAMIDE 50 MG TAB (VIMPAT) GT SCH (08:53)
[2022-06-20] MEDS: DOCUSATE SOD LIQ 100MG/10ML UDC GT SCH ×2 (08:53→20:51)
[2022-06-20] MEDS: MIDODRINE 5 MG TAB PO SCH ×3 (08:53→16:51)
[2022-06-20] MEDS: BISACODYL 10 MG SUPP PR SCH ×2 (08:54→21:08)
[2022-06-20] MEDS: predniSONE 10 MG TAB PO SCH (08:54)
[2022-06-20] MEDS: POTASSIUM CHLORIDE 10% LIQ 20 MEQ/15 ML UDC PO SCH ×2 (08:54→20:51)
[2022-06-20] MEDS: FERROUS SULFATE 300MG/5ML UDC LIQUID GT SCH (08:54)
[2022-06-20] MEDS: ATORVASTATIN 20 MG TAB PO SCH (08:54)
[2022-06-20] MEDS: DIVALPROEX SPRINKLE 125 MG CAP GT SCH (08:57)
[2022-06-20] MEDS ORDERED: NS 1,000 ML IV ONE ×3 (09:45→19:00)
[2022-06-20] MEDS ORDERED: KETOROLAC 30 MG/ML 1ML VIAL IV ONE (10:00)
[2022-06-20] MEDS ORDERED: MEROPENEM INJ 1 GM in IV 1 EA IV SCH (11:00)
[2022-06-20] MEDS ORDERED: VANCOMYCIN HCL 1,000 MG, VIAL MATE ADAPTER 1 EACH in D5W 250 ML IV ONE (12:00)
[2022-06-20] MEDS ORDERED: LORazepam 2 MG/ML VIAL IV STA (13:56)
[2022-06-20 14:22] VITALS: BP 104/65
[2022-06-20 14:30] VITALS: BP 104/65
[2022-06-20] MEDS: VALPROATE SOD INJ 500 MG in D5W MINI-BAG PLUS 50 ML IV SCH (16:51)
[2022-06-20] MEDS ORDERED: NS 500 ML IV ONE (17:30)
[2022-06-20] MEDS ORDERED: HYDROCORTISONE 100 MG/2 ML VIAL (J1720 PER 1) IV ONE (18:15)
[2022-06-20] MEDS: SODIUM CHLORIDE 0.9% INJ 10 ML SYR IV SCH (18:27)
[2022-06-20 19:39] VITALS: BP 120/72
[2022-06-20] MEDS: MEROPENEM INJ 1 GM in IV 1 EA IV SCH (20:50)
[2022-06-20] MEDS: LR 1,000 ML IV SCH (20:50)
[2022-06-20] MEDS: LACOSAMIDE 10MG/ML 20ML VIAL (VIMPAT) IV SCH (21:37)
[2022-06-20] MEDS: VANCOMYCIN HCL 1,000 MG, VIAL MATE ADAPTER 1 EACH in D5W 250 ML IV SCH (22:39)
[2022-06-21] MEDS: VALPROATE SOD INJ 500 MG in D5W MINI-BAG PLUS 50 ML IV SCH ×4 (00:25→23:44)
[2022-06-21] MEDS: ALBUTEROL SULFATE 2.5 MG/0.5 ML INH NEB SOLN NEB SCH ×6 (03:04→20:33)
[2022-06-21] MEDS: SODIUM CHLORIDE HYPERTONIC 3% 15ML NEB SOL INH SCH ×6 (03:04→20:33)
[2022-06-21] MEDS: MEROPENEM INJ 1 GM in IV 1 EA IV SCH ×3 (03:55→21:16)
[2022-06-21] MEDS: HEPARIN SOD (PORCINE) 5000UNITS/ML 1ML VIAL/SYRINGE SQ SCH ×3 (05:22→22:17)
[2022-06-21] MEDS: LR 1,000 ML IV SCH ×3 (05:23→20:15)
[2022-06-21 05:55] VITALS: BP 104/52
[2022-06-21 06:44] LABS: HEMOGLOBIN 10.4 g/dl (13.5-17.5); LYMPH # 0.7 10^3/uL (1.5-5.0); LYMPH % 9.6 % (24.0-44.0); MEAN CORPUSCULAR HGB CONC 31.5 g/dl (32.0-36.5); MEAN CORPUSCULAR VOLUME 95.1 fl (80.0-96.0); MONO # 0.5 10^3/uL (0.0-0.8); MONO % 7.8 % (2.0-8.0); NEUTROPHILS # 5.7 10^3/uL (1.5-8.5); NEUTROPHILS % 81.9 % (36.0-66.0); PLATELET COUNT, AUTOMATED 179 10^3/uL (150-450); RED BLOOD COUNT 3.47 10^6/uL (4.30-6.10); WHITE BLOOD COUNT 6.9 10^3/uL (4.0-10.0)
[2022-06-21] MEDS: IPRATROPIUM 0.5MG/ALBUTEROL 2.5MG INH SOL UD 3ML (DUONEB) NEB PRN (07:08)
[2022-06-21 07:09] LABS: ALBUMIN 2.1 G/DL (3.2-5.2); ALKALINE PHOSPHATASE 79 U/L (46-116); ALT/SGPT 22 U/L (7.0-40); AST/SGOT 22 U/L (<34); BILIRUBIN,TOTAL 0.9 MG/DL (0.3-1.2); BLOOD UREA NITROGEN 21 MG/DL (9-23); CALCIUM LEVEL 7.8 MG/DL (8.5-10.1); CARBON DIOXIDE LEVEL 24 MMOL/L (20-31); CHLORIDE LEVEL 108 MMOL/L (98-107); GLOMERULAR FILTRATION RATE > 60.0 (>56); GLUCOSE, FASTING 163 MG/DL (60-100); MAGNESIUM LEVEL 1.7 MG/DL (1.8-2.4); POTASSIUM SERUM 3.7 MMOL/L (3.5-5.1); SODIUM LEVEL 142 MMOL/L (136-145)
[2022-06-21] MEDS: CHLORHEXIDINE GLUCONATE 0.12 % 15ML UDC (PERIDEX ORAL RINSE) MT SCH ×2 (08:52→20:13)
[2022-06-21] MEDS: predniSONE 10 MG TAB PO SCH (08:52)
[2022-06-21] MEDS: ATORVASTATIN 20 MG TAB PO SCH (08:52)
[2022-06-21] MEDS: DOCUSATE SOD LIQ 100MG/10ML UDC GT SCH ×2 (08:52→20:13)
[2022-06-21] MEDS: FERROUS SULFATE 300MG/5ML UDC LIQUID GT SCH (08:52)
[2022-06-21] MEDS: OMEPRAZOLE SUSPENSION 20MG 10ML ORAL SYRINGE GT SCH (08:53)
[2022-06-21] MEDS: MIDODRINE 5 MG TAB PO SCH ×3 (08:53→17:02)
[2022-06-21] MEDS: POTASSIUM CHLORIDE 10% LIQ 20 MEQ/15 ML UDC PO SCH ×2 (08:53→20:14)
[2022-06-21] MEDS ORDERED: MAG SULF 1GM/100ML (MAG RUN) 1 GM in IV 1 EA IV ONE (09:00)
[2022-06-21 09:08] LABS: PHOSPHORUS LEVEL 2.5 MG/DL (2.5-4.9)
[2022-06-21] MEDS: BISACODYL 10 MG SUPP PR SCH ×2 (09:53→20:13)
[2022-06-21] MEDS: NYSTATIN 100,000 UNITS/GM TOPICAL PWD 15GM TOP SCH ×2 (09:53→21:17)
[2022-06-21] MEDS: LACOSAMIDE 10MG/ML 20ML VIAL (VIMPAT) IV SCH ×2 (09:53→20:14)
[2022-06-21] MEDS: VANCOMYCIN HCL 1,000 MG, VIAL MATE ADAPTER 1 EACH in D5W 250 ML IV SCH ×2 (10:34→21:17)
[2022-06-21 14:11] VITALS: BP 110/65
[2022-06-21] MEDS: SODIUM CHLORIDE 0.9% INJ 10 ML SYR IV SCH (17:03)
[2022-06-21 19:49] VITALS: BP 139/91
[2022-06-22] MEDS: ALBUTEROL SULFATE 2.5 MG/0.5 ML INH NEB SOLN NEB SCH ×7 (02:05→23:51)
[2022-06-22] MEDS: SODIUM CHLORIDE HYPERTONIC 3% 15ML NEB SOL INH SCH ×7 (02:05→23:51)
[2022-06-22] MEDS: MEROPENEM INJ 1 GM in IV 1 EA IV SCH ×3 (03:43→21:17)
[2022-06-22] MEDS: HEPARIN SOD (PORCINE) 5000UNITS/ML 1ML VIAL/SYRINGE SQ SCH ×3 (05:12→21:51)
[2022-06-22] MEDS: LR 1,000 ML IV SCH ×2 (05:12→16:12)
[2022-06-22 05:31] VITALS: BP 121/63
[2022-06-22 08:19] LABS: BASO % 0.1 % (0.0-1.0); EOS # 0.1 10^3/uL (0.0-0.5); EOS % 1.2 % (0.0-3.0); HEMATOCRIT 33.8 % (42.0-52.0); HEMOGLOBIN 10.7 g/dl (13.5-17.5); LYMPH # 1.9 10^3/uL (1.5-5.0); LYMPH % 23.3 % (24.0-44.0); MEAN CORPUSCULAR HEMOGLOBIN 30.3 pg (27.0-33.0); MEAN CORPUSCULAR HGB CONC 31.7 g/dl (32.0-36.5); MEAN CORPUSCULAR VOLUME 95.8 fl (80.0-96.0); MONO # 0.5 10^3/uL (0.0-0.8); MONO % 6.5 % (2.0-8.0); NEUTROPHILS # 5.7 10^3/uL (1.5-8.5); NEUTROPHILS % 68.1 % (36.0-66.0); PLATELET COUNT, AUTOMATED 173 10^3/uL (150-450); RED BLOOD COUNT 3.53 10^6/uL (4.30-6.10); WHITE BLOOD COUNT 8.3 10^3/uL (4.0-10.0)
[2022-06-22 08:58] VITALS: O2SAT 98
[2022-06-22 08:58] LABS: BLOOD UREA NITROGEN 13 MG/DL (9-23); CALCIUM LEVEL 7.9 MG/DL (8.5-10.1); CARBON DIOXIDE LEVEL 28 MMOL/L (20-31); CHLORIDE LEVEL 108 MMOL/L (98-107); GLOMERULAR FILTRATION RATE > 60.0 (>56); GLUCOSE, FASTING 113 MG/DL (60-100); MAGNESIUM LEVEL 1.8 MG/DL (1.8-2.4); POTASSIUM SERUM 3.9 MMOL/L (3.5-5.1); SODIUM LEVEL 143 MMOL/L (136-145)
[2022-06-22] MEDS ORDERED: DIVALPROEX SPRINKLE 125 MG CAP GT SCH ×2 (09:00→21:00)
[2022-06-22] MEDS: BISACODYL 10 MG SUPP PR SCH ×3 (09:00→21:52)
[2022-06-22] MEDS: LACOSAMIDE 10MG/ML 20ML VIAL (VIMPAT) IV SCH ×2 (09:50→21:52)
[2022-06-22] MEDS: VALPROATE SOD INJ 500 MG in D5W MINI-BAG PLUS 50 ML IV SCH ×2 (09:50→16:11)
[2022-06-22] MEDS: FERROUS SULFATE 300MG/5ML UDC LIQUID GT SCH (09:51)
[2022-06-22] MEDS: POTASSIUM CHLORIDE 10% LIQ 20 MEQ/15 ML UDC PO SCH ×2 (09:51→21:51)
[2022-06-22] MEDS: DOCUSATE SOD LIQ 100MG/10ML UDC GT SCH ×2 (09:51→21:51)
[2022-06-22] MEDS: predniSONE 10 MG TAB PO SCH (09:52)
[2022-06-22] MEDS: CHLORHEXIDINE GLUCONATE 0.12 % 15ML UDC (PERIDEX ORAL RINSE) MT SCH ×2 (09:52→21:00)
[2022-06-22] MEDS: ATORVASTATIN 20 MG TAB PO SCH (09:52)
[2022-06-22] MEDS: MIDODRINE 5 MG TAB PO SCH ×3 (09:53→16:12)
[2022-06-22] MEDS: OMEPRAZOLE SUSPENSION 20MG 10ML ORAL SYRINGE GT SCH ×2 (09:54→21:52)
[2022-06-22] MEDS: NYSTATIN 100,000 UNITS/GM TOPICAL PWD 15GM TOP SCH ×2 (09:54→21:51)
[2022-06-22] MEDS: VANCOMYCIN HCL 1,000 MG, VIAL MATE ADAPTER 1 EACH in D5W 250 ML IV SCH ×2 (11:08→21:52)
[2022-06-22 14:00] VITALS: BP 113/80
[2022-06-22] MEDS ORDERED: ISOVUE-370 76% 100ML VIAL As Ordered ONE (14:55)
[2022-06-22 16:36] VITALS: O2SAT 96
[2022-06-22] MEDS: SODIUM CHLORIDE 0.9% INJ 10 ML SYR IV SCH (17:59)
[2022-06-22 21:37] VITALS: BP 105/67
[2022-06-23] MEDS: VALPROATE SOD INJ 500 MG in D5W MINI-BAG PLUS 50 ML IV SCH ×3 (00:28→16:42)
[2022-06-23] MEDS: SODIUM CHLORIDE HYPERTONIC 3% 15ML NEB SOL INH SCH ×5 (04:06→21:59)
[2022-06-23] MEDS: ALBUTEROL SULFATE 2.5 MG/0.5 ML INH NEB SOLN NEB SCH ×5 (04:06→21:59)
[2022-06-23] MEDS: LR 1,000 ML IV SCH (04:59)
[2022-06-23] MEDS: MEROPENEM INJ 1 GM in IV 1 EA IV SCH ×3 (04:59→20:49)
[2022-06-23 05:56] VITALS: BP 95/65
[2022-06-23] MEDS: predniSONE 10 MG TAB PO SCH (08:45)
[2022-06-23 08:46] LABS: BASO % 0.2 % (0.0-1.0); EOS # 0.1 10^3/uL (0.0-0.5); EOS % 1.7 % (0.0-3.0); HEMATOCRIT 34.7 % (42.0-52.0); HEMOGLOBIN 10.8 g/dl (13.5-17.5); LYMPH # 1.6 10^3/uL (1.5-5.0); LYMPH % 24.5 % (24.0-44.0); MEAN CORPUSCULAR HEMOGLOBIN 30.4 pg (27.0-33.0); MEAN CORPUSCULAR HGB CONC 31.1 g/dl (32.0-36.5); MEAN CORPUSCULAR VOLUME 97.7 fl (80.0-96.0); MONO # 0.6 10^3/uL (0.0-0.8); MONO % 8.7 % (2.0-8.0); NEUTROPHILS # 4.2 10^3/uL (1.5-8.5); NEUTROPHILS % 64.4 % (36.0-66.0); PLATELET COUNT, AUTOMATED 157 10^3/uL (150-450); RED BLOOD COUNT 3.55 10^6/uL (4.30-6.10); WHITE BLOOD COUNT 6.6 10^3/uL (4.0-10.0)
[2022-06-23] MEDS: ATORVASTATIN 20 MG TAB PO SCH (08:46)
[2022-06-23] MEDS: BISACODYL 10 MG SUPP PR SCH ×2 (08:47→21:00)
[2022-06-23] MEDS: CHLORHEXIDINE GLUCONATE 0.12 % 15ML UDC (PERIDEX ORAL RINSE) MT SCH ×2 (08:47→21:56)
[2022-06-23] MEDS: MIDODRINE 5 MG TAB PO SCH ×3 (08:47→16:41)
[2022-06-23] MEDS: FERROUS SULFATE 300MG/5ML UDC LIQUID GT SCH (08:48)
[2022-06-23] MEDS: DOCUSATE SOD LIQ 100MG/10ML UDC GT SCH ×2 (08:48→21:56)
[2022-06-23] MEDS: OMEPRAZOLE SUSPENSION 20MG 10ML ORAL SYRINGE GT SCH ×2 (08:50→21:56)
[2022-06-23] MEDS: POTASSIUM CHLORIDE 10% LIQ 20 MEQ/15 ML UDC PO SCH ×2 (08:51→21:56)
[2022-06-23] MEDS: KETOCONAZOLE 2% CREAM TOP SCH ×2 (09:00→21:57)
[2022-06-23] MEDS ORDERED: LIDOCAINE 1% MDV 20ML VIAL As Ordered ONE (09:06)
[2022-06-23 09:36] LABS: CHLORIDE LEVEL 105 MMOL/L (98-107); SODIUM LEVEL 142 MMOL/L (136-145)
[2022-06-23 09:37] LABS: CARBON DIOXIDE LEVEL 31 MMOL/L (20-31)
[2022-06-23 09:42] LABS: BLOOD UREA NITROGEN 13 MG/DL (9-23); CALCIUM LEVEL 8.1 MG/DL (8.5-10.1); GLUCOSE, FASTING 104 MG/DL (60-100)
[2022-06-23 09:43] LABS: VANCOMYCIN LEVEL TROUGH 15.5 UG/ML (10.0-20.0)
[2022-06-23 09:44] LABS: CREATININE FOR GFR 0.48 MG/DL (0.70-1.30); GLOMERULAR FILTRATION RATE > 60.0 (>56)
[2022-06-23 10:01] LABS: POTASSIUM SERUM 4.2 MMOL/L (3.5-5.1)
[2022-06-23] MEDS: VANCOMYCIN HCL 1,000 MG, VIAL MATE ADAPTER 1 EACH in D5W 250 ML IV SCH ×2 (11:10→21:57)
[2022-06-23] MEDS: LACOSAMIDE 10MG/ML 20ML VIAL (VIMPAT) IV SCH ×2 (11:10→21:55)
[2022-06-23] MEDS: NYSTATIN 100,000 UNITS/GM TOPICAL PWD 15GM TOP SCH ×2 (11:11→21:56)
[2022-06-23 13:45] VITALS: BP 111/65
[2022-06-23] MEDS: SODIUM CHLORIDE 0.9% INJ 10 ML SYR IV SCH (18:20)
[2022-06-23] MEDS: HEPARIN SOD (PORCINE) 5000UNITS/ML 1ML VIAL/SYRINGE SQ SCH (21:57)
[2022-06-23 22:12] VITALS: BP 92/71
[2022-06-24] MEDS: VALPROATE SOD INJ 500 MG in D5W MINI-BAG PLUS 50 ML IV SCH ×3 (00:21→16:21)
[2022-06-24] MEDS: ALBUTEROL SULFATE 2.5 MG/0.5 ML INH NEB SOLN NEB SCH ×7 (00:42→23:55)
[2022-06-24] MEDS: SODIUM CHLORIDE HYPERTONIC 3% 15ML NEB SOL INH SCH ×7 (00:42→23:55)
[2022-06-24 01:59] VITALS: BP 98/70
[2022-06-24] MEDS: MEROPENEM INJ 1 GM in IV 1 EA IV SCH ×3 (04:28→20:15)
[2022-06-24 06:11] VITALS: BP 97/69
[2022-06-24] MEDS: HEPARIN SOD (PORCINE) 5000UNITS/ML 1ML VIAL/SYRINGE SQ SCH ×3 (07:03→21:35)
[2022-06-24 08:32] LABS: BASO % 0.1 % (0.0-1.0); EOS # 0.2 10^3/uL (0.0-0.5); EOS % 3.1 % (0.0-3.0); HEMATOCRIT 36.9 % (42.0-52.0); HEMOGLOBIN 11.6 g/dl (13.5-17.5); LYMPH # 1.7 10^3/uL (1.5-5.0); LYMPH % 24.2 % (24.0-44.0); MEAN CORPUSCULAR HEMOGLOBIN 30.7 pg (27.0-33.0); MEAN CORPUSCULAR HGB CONC 31.4 g/dl (32.0-36.5); MEAN CORPUSCULAR VOLUME 97.6 fl (80.0-96.0); MONO # 0.6 10^3/uL (0.0-0.8); MONO % 7.7 % (2.0-8.0); NEUTROPHILS # 4.6 10^3/uL (1.5-8.5); NEUTROPHILS % 64.1 % (36.0-66.0); PLATELET COUNT, AUTOMATED 173 10^3/uL (150-450); RED BLOOD COUNT 3.78 10^6/uL (4.30-6.10); WHITE BLOOD COUNT 7.2 10^3/uL (4.0-10.0)
[2022-06-24] MEDS: CHLORHEXIDINE GLUCONATE 0.12 % 15ML UDC (PERIDEX ORAL RINSE) MT SCH ×2 (08:44→20:16)
[2022-06-24] MEDS: DOCUSATE SOD LIQ 100MG/10ML UDC GT SCH ×2 (08:45→20:16)
[2022-06-24] MEDS: LACOSAMIDE 10MG/ML 20ML VIAL (VIMPAT) IV SCH ×2 (08:46→21:34)
[2022-06-24] MEDS: predniSONE 10 MG TAB PO SCH (08:46)
[2022-06-24] MEDS: BISACODYL 10 MG SUPP PR SCH ×2 (08:46→20:16)
[2022-06-24] MEDS: MIDODRINE 5 MG TAB PO SCH ×3 (08:46→16:21)
[2022-06-24] MEDS: ATORVASTATIN 20 MG TAB PO SCH (08:46)
[2022-06-24] MEDS: OMEPRAZOLE SUSPENSION 20MG 10ML ORAL SYRINGE GT SCH ×2 (08:47→20:16)
[2022-06-24] MEDS: NYSTATIN 100,000 UNITS/GM TOPICAL PWD 15GM TOP SCH ×2 (08:47→21:35)
[2022-06-24 09:01] LABS: CHLORIDE LEVEL 104 MMOL/L (98-107); POTASSIUM SERUM 4.2 MMOL/L (3.5-5.1); SODIUM LEVEL 141 MMOL/L (136-145)
[2022-06-24 09:02] LABS: CARBON DIOXIDE LEVEL 29 MMOL/L (20-31)
[2022-06-24 09:06] LABS: BLOOD UREA NITROGEN 16 MG/DL (9-23)
[2022-06-24 09:08] LABS: CALCIUM LEVEL 8.3 MG/DL (8.5-10.1); GLUCOSE, FASTING 111 MG/DL (60-100)
[2022-06-24 09:10] LABS: CREATININE FOR GFR 0.45 MG/DL (0.70-1.30); GLOMERULAR FILTRATION RATE > 60.0 (>56)
[2022-06-24] MEDS: POTASSIUM CHLORIDE 10% LIQ 20 MEQ/15 ML UDC PO SCH ×2 (09:20→20:16)
[2022-06-24 10:15] VITALS: BP 99/60
[2022-06-24] MEDS: VANCOMYCIN HCL 1,000 MG, VIAL MATE ADAPTER 1 EACH in D5W 250 ML IV SCH ×2 (11:08→21:34)
[2022-06-24] MEDS: KETOCONAZOLE 2% CREAM TOP SCH ×2 (11:11→22:42)
[2022-06-24] MEDS: FERROUS SULFATE 300MG/5ML UDC LIQUID GT SCH (12:40)
[2022-06-24 14:58] VITALS: BP 112/96
[2022-06-24] MEDS: SODIUM CHLORIDE 0.9% INJ 10 ML SYR IV SCH (16:48)
[2022-06-25] VITALS (8 sets, daily range): BP systolic 82–118; BP diastolic 53–72
[2022-06-25] MEDS: VALPROATE SOD INJ 500 MG in D5W MINI-BAG PLUS 50 ML IV SCH ×4 (00:19→23:40)
[2022-06-25] MEDS: ALBUTEROL SULFATE 2.5 MG/0.5 ML INH NEB SOLN NEB SCH ×5 (03:48→19:48)
[2022-06-25] MEDS: SODIUM CHLORIDE HYPERTONIC 3% 15ML NEB SOL INH SCH ×5 (03:48→19:48)
[2022-06-25] MEDS: MEROPENEM INJ 1 GM in IV 1 EA IV SCH ×3 (04:10→19:51)
[2022-06-25] MEDS: SODIUM CHLORIDE 0.9% INJ 10 ML SYR IV PRN (05:46)
[2022-06-25] MEDS: HEPARIN SOD (PORCINE) 5000UNITS/ML 1ML VIAL/SYRINGE SQ SCH ×3 (05:46→21:29)
[2022-06-25 06:20] LABS: BASO % 0.2 % (0.0-1.0); EOS # 0.2 10^3/uL (0.0-0.5); EOS % 2.9 % (0.0-3.0); HEMATOCRIT 35.5 % (42.0-52.0); LYMPH # 1.7 10^3/uL (1.5-5.0); LYMPH % 25.3 % (24.0-44.0); MEAN CORPUSCULAR HEMOGLOBIN 30.3 pg (27.0-33.0); MEAN CORPUSCULAR VOLUME 97.8 fl (80.0-96.0); MONO # 0.5 10^3/uL (0.0-0.8); MONO % 7.6 % (2.0-8.0); NEUTROPHILS # 4.2 10^3/uL (1.5-8.5); NEUTROPHILS % 63.2 % (36.0-66.0); PLATELET COUNT, AUTOMATED 166 10^3/uL (150-450); RED BLOOD COUNT 3.63 10^6/uL (4.30-6.10); WHITE BLOOD COUNT 6.6 10^3/uL (4.0-10.0)
[2022-06-25] MEDS: MIDODRINE 5 MG TAB PO SCH ×3 (06:21→15:40)
[2022-06-25 06:43] LABS: BLOOD UREA NITROGEN 17 MG/DL (9-23); CALCIUM LEVEL 8.2 MG/DL (8.5-10.1); CARBON DIOXIDE LEVEL 29 MMOL/L (20-31); CHLORIDE LEVEL 105 MMOL/L (98-107); CREATININE FOR GFR 0.46 MG/DL (0.70-1.30); GLOMERULAR FILTRATION RATE > 60.0 (>56); GLUCOSE, FASTING 105 MG/DL (60-100); SODIUM LEVEL 142 MMOL/L (136-145)
[2022-06-25] MEDS: CHLORHEXIDINE GLUCONATE 0.12 % 15ML UDC (PERIDEX ORAL RINSE) MT SCH ×2 (09:00→21:29)
[2022-06-25] MEDS: BISACODYL 10 MG SUPP PR SCH ×2 (10:03→21:30)
[2022-06-25] MEDS: ATORVASTATIN 20 MG TAB PO SCH (10:03)
[2022-06-25] MEDS: predniSONE 10 MG TAB PO SCH (10:03)
[2022-06-25] MEDS: FERROUS SULFATE 300MG/5ML UDC LIQUID GT SCH (10:03)
[2022-06-25] MEDS: OMEPRAZOLE SUSPENSION 20MG 10ML ORAL SYRINGE GT SCH ×2 (10:04→21:28)
[2022-06-25] MEDS: LACOSAMIDE 10MG/ML 20ML VIAL (VIMPAT) IV SCH ×2 (10:04→21:31)
[2022-06-25] MEDS: DOCUSATE SOD LIQ 100MG/10ML UDC GT SCH ×2 (10:04→21:28)
[2022-06-25] MEDS: NYSTATIN 100,000 UNITS/GM TOPICAL PWD 15GM TOP SCH ×2 (10:05→21:30)
[2022-06-25] MEDS: KETOCONAZOLE 2% CREAM TOP SCH ×2 (10:07→21:29)
[2022-06-25] MEDS: POTASSIUM CHLORIDE 10% LIQ 20 MEQ/15 ML UDC PO SCH ×2 (10:08→21:28)
[2022-06-25] MEDS: VANCOMYCIN HCL 1,000 MG, VIAL MATE ADAPTER 1 EACH in D5W 250 ML IV SCH ×2 (12:14→21:31)
[2022-06-25] MEDS: ACETAMINOPHEN 650MG SUPP PR PRN ×2 (12:32→21:30)
[2022-06-25] MEDS: HYDROCORTISONE 100 MG/2 ML VIAL (J1720 PER 1) IV SCH ×2 (17:03→23:40)
[2022-06-25] MEDS: SODIUM CHLORIDE 0.9% INJ 10 ML SYR IV SCH (17:04)
[2022-06-26] MEDS: SODIUM CHLORIDE HYPERTONIC 3% 15ML NEB SOL INH SCH ×7 (04:13→23:46)
[2022-06-26] MEDS: ALBUTEROL SULFATE 2.5 MG/0.5 ML INH NEB SOLN NEB SCH ×7 (04:13→23:46)
[2022-06-26] MEDS: HYDROCORTISONE 100 MG/2 ML VIAL (J1720 PER 1) IV SCH ×3 (04:16→16:08)
[2022-06-26] MEDS: MEROPENEM INJ 1 GM in IV 1 EA IV SCH (04:17)
[2022-06-26] MEDS: SODIUM CHLORIDE 0.9% INJ 10 ML SYR IV PRN (05:34)
[2022-06-26] MEDS: HEPARIN SOD (PORCINE) 5000UNITS/ML 1ML VIAL/SYRINGE SQ SCH ×3 (05:35→21:24)
[2022-06-26 06:00] VITALS: BP 95/59
[2022-06-26 08:29] LABS: BASO % 0.1 % (0.0-1.0); HEMATOCRIT 37.5 % (42.0-52.0); HEMOGLOBIN 11.7 g/dl (13.5-17.5); LYMPH # 0.4 10^3/uL (1.5-5.0); LYMPH % 4.7 % (24.0-44.0); MEAN CORPUSCULAR HEMOGLOBIN 30.9 pg (27.0-33.0); MEAN CORPUSCULAR HGB CONC 31.2 g/dl (32.0-36.5); MEAN CORPUSCULAR VOLUME 98.9 fl (80.0-96.0); MONO # 0.4 10^3/uL (0.0-0.8); MONO % 5.3 % (2.0-8.0); NEUTROPHILS # 7.3 10^3/uL (1.5-8.5); NEUTROPHILS % 89.4 % (36.0-66.0); PLATELET COUNT, AUTOMATED 170 10^3/uL (150-450); RED BLOOD COUNT 3.79 10^6/uL (4.30-6.10); WHITE BLOOD COUNT 8.1 10^3/uL (4.0-10.0)
[2022-06-26] MEDS: LACOSAMIDE 10MG/ML 20ML VIAL (VIMPAT) IV SCH (09:07)
[2022-06-26] MEDS: VALPROATE SOD INJ 500 MG in D5W MINI-BAG PLUS 50 ML IV SCH ×2 (09:07→16:08)
[2022-06-26] MEDS: ATORVASTATIN 20 MG TAB PO SCH (09:08)
[2022-06-26] MEDS: MIDODRINE 5 MG TAB PO SCH ×3 (09:08→16:09)
[2022-06-26] MEDS: POTASSIUM CHLORIDE 10% LIQ 20 MEQ/15 ML UDC PO SCH ×2 (09:08→21:14)
[2022-06-26] MEDS: DOCUSATE SOD LIQ 100MG/10ML UDC GT SCH ×2 (09:08→21:14)
[2022-06-26] MEDS: CHLORHEXIDINE GLUCONATE 0.12 % 15ML UDC (PERIDEX ORAL RINSE) MT SCH ×2 (09:08→22:51)
[2022-06-26] MEDS: predniSONE 10 MG TAB PO SCH (09:09)
[2022-06-26] MEDS: OMEPRAZOLE SUSPENSION 20MG 10ML ORAL SYRINGE GT SCH ×2 (09:09→21:13)
[2022-06-26] MEDS: BISACODYL 10 MG SUPP PR SCH ×2 (09:10→21:15)
[2022-06-26] MEDS: NYSTATIN 100,000 UNITS/GM TOPICAL PWD 15GM TOP SCH ×2 (09:10→21:15)
[2022-06-26] MEDS: KETOCONAZOLE 2% CREAM TOP SCH ×2 (09:10→21:23)
[2022-06-26 09:23] LABS: BLOOD UREA NITROGEN 22 MG/DL (9-23); CALCIUM LEVEL 8.3 MG/DL (8.5-10.1); CARBON DIOXIDE LEVEL 29 MMOL/L (20-31); CHLORIDE LEVEL 104 MMOL/L (98-107); CREATININE FOR GFR 0.42 MG/DL (0.70-1.30); GLOMERULAR FILTRATION RATE > 60.0 (>56); GLUCOSE, FASTING 171 MG/DL (60-100); POTASSIUM SERUM 4.1 MMOL/L (3.5-5.1); SODIUM LEVEL 140 MMOL/L (136-145)
[2022-06-26] MEDS: FERROUS SULFATE 300MG/5ML UDC LIQUID GT SCH (11:34)
[2022-06-26 14:00] VITALS: BP 101/60
[2022-06-26] MEDS: SODIUM CHLORIDE 0.9% INJ 10 ML SYR IV SCH (18:55)
[2022-06-26] MEDS: LACOSAMIDE 50 MG TAB (VIMPAT) PO SCH (21:14)
[2022-06-26 21:27] VITALS: BP 90/54
[2022-06-27] MEDS: VALPROATE SOD INJ 500 MG in D5W MINI-BAG PLUS 50 ML IV SCH (00:07)
[2022-06-27] MEDS: HYDROCORTISONE 100 MG/2 ML VIAL (J1720 PER 1) IV SCH ×3 (01:09→16:48)
[2022-06-27] MEDS: SODIUM CHLORIDE HYPERTONIC 3% 15ML NEB SOL INH SCH ×5 (04:00→19:47)
[2022-06-27] MEDS: ALBUTEROL SULFATE 2.5 MG/0.5 ML INH NEB SOLN NEB SCH ×5 (04:00→19:47)
[2022-06-27] MEDS: HEPARIN SOD (PORCINE) 5000UNITS/ML 1ML VIAL/SYRINGE SQ SCH ×3 (05:11→21:59)
[2022-06-27 06:45] VITALS: BP 93/58
[2022-06-27 06:54] LABS: BASO % 0.1 % (0.0-1.0); EOS % 0.4 % (0.0-3.0); HEMATOCRIT 34.9 % (42.0-52.0); HEMOGLOBIN 10.8 g/dl (13.5-17.5); LYMPH # 1.6 10^3/uL (1.5-5.0); LYMPH % 19.1 % (24.0-44.0); MEAN CORPUSCULAR HEMOGLOBIN 30.8 pg (27.0-33.0); MEAN CORPUSCULAR HGB CONC 30.9 g/dl (32.0-36.5); MEAN CORPUSCULAR VOLUME 99.4 fl (80.0-96.0); MONO # 0.9 10^3/uL (0.0-0.8); MONO % 10.7 % (2.0-8.0); NEUTROPHILS # 5.6 10^3/uL (1.5-8.5); PLATELET COUNT, AUTOMATED 207 10^3/uL (150-450); RED BLOOD COUNT 3.51 10^6/uL (4.30-6.10); WHITE BLOOD COUNT 8.1 10^3/uL (4.0-10.0)
[2022-06-27 07:10] LABS: BLOOD UREA NITROGEN 24 MG/DL (9-23); CALCIUM LEVEL 8.6 MG/DL (8.5-10.1); CARBON DIOXIDE LEVEL 30 MMOL/L (20-31); CHLORIDE LEVEL 107 MMOL/L (98-107); CREATININE FOR GFR 0.44 MG/DL (0.70-1.30); GLOMERULAR FILTRATION RATE > 60.0 (>56); GLUCOSE, FASTING 122 MG/DL (60-100); POTASSIUM SERUM 3.6 MMOL/L (3.5-5.1); SODIUM LEVEL 143 MMOL/L (136-145)
[2022-06-27] MEDS ORDERED: VALPROIC ACID 250MG CAP PO SCH (09:00)
[2022-06-27] MEDS: MIDODRINE 5 MG TAB PO SCH ×3 (09:52→16:48)
[2022-06-27] MEDS: OMEPRAZOLE SUSPENSION 20MG 10ML ORAL SYRINGE GT SCH ×2 (09:53→20:23)
[2022-06-27] MEDS: CHLORHEXIDINE GLUCONATE 0.12 % 15ML UDC (PERIDEX ORAL RINSE) MT SCH ×2 (09:53→20:24)
[2022-06-27] MEDS: BISACODYL 10 MG SUPP PR SCH ×2 (09:53→20:25)
[2022-06-27] MEDS: POTASSIUM CHLORIDE 10% LIQ 20 MEQ/15 ML UDC PO SCH ×2 (09:53→20:24)
[2022-06-27] MEDS: ATORVASTATIN 20 MG TAB PO SCH (09:53)
[2022-06-27] MEDS: LACOSAMIDE 50 MG TAB (VIMPAT) PO SCH ×2 (09:53→20:24)
[2022-06-27] MEDS: FERROUS SULFATE 300MG/5ML UDC LIQUID GT SCH (09:53)
[2022-06-27] MEDS: DOCUSATE SOD LIQ 100MG/10ML UDC GT SCH ×2 (09:53→20:24)
[2022-06-27] MEDS: KETOCONAZOLE 2% CREAM TOP SCH ×2 (09:54→20:25)
[2022-06-27] MEDS: predniSONE 10 MG TAB PO SCH (09:54)
[2022-06-27] MEDS: NYSTATIN 100,000 UNITS/GM TOPICAL PWD 15GM TOP SCH ×2 (09:54→20:25)
[2022-06-27] MEDS: VALPROIC ACID 250MG/5ML SOL ORAL SYRINGE *DRAW UP EXACT DOSE PEG SCH ×3 (12:40→20:24)
[2022-06-27 14:42] VITALS: BP 93/61
[2022-06-27] MEDS: IPRATROPIUM 0.5MG/ALBUTEROL 2.5MG INH SOL UD 3ML (DUONEB) NEB PRN (15:55)
[2022-06-27] MEDS: SODIUM CHLORIDE 0.9% INJ 10 ML SYR IV SCH (16:49)
[2022-06-27 21:46] VITALS: BP 96/62
[2022-06-28] MEDS: HYDROCORTISONE 100 MG/2 ML VIAL (J1720 PER 1) IV SCH ×2 (00:01→13:12)
[2022-06-28] MEDS: SODIUM CHLORIDE 0.9% INJ 10 ML SYR IV PRN (00:02)
[2022-06-28] MEDS: SODIUM CHLORIDE HYPERTONIC 3% 15ML NEB SOL INH SCH ×7 (00:03→23:36)
[2022-06-28] MEDS: ALBUTEROL SULFATE 2.5 MG/0.5 ML INH NEB SOLN NEB SCH ×6 (00:03→20:04)
[2022-06-28 05:01] VITALS: BP 82/54
[2022-06-28] MEDS: HEPARIN SOD (PORCINE) 5000UNITS/ML 1ML VIAL/SYRINGE SQ SCH ×3 (05:24→20:29)
[2022-06-28 06:54] LABS: BASO % 0.2 % (0.0-1.0); HEMATOCRIT 34.4 % (42.0-52.0); LYMPH # 0.6 10^3/uL (1.5-5.0); LYMPH % 9.7 % (24.0-44.0); MEAN CORPUSCULAR HEMOGLOBIN 31.3 pg (27.0-33.0); MONO # 0.7 10^3/uL (0.0-0.8); MONO % 11.3 % (2.0-8.0); PLATELET COUNT, AUTOMATED 229 10^3/uL (150-450); RED BLOOD COUNT 3.51 10^6/uL (4.30-6.10); WHITE BLOOD COUNT 6.4 10^3/uL (4.0-10.0)
[2022-06-28 07:18] LABS: BLOOD UREA NITROGEN 26 MG/DL (9-23); CALCIUM LEVEL 8.5 MG/DL (8.5-10.1); CARBON DIOXIDE LEVEL 31 MMOL/L (20-31); CHLORIDE LEVEL 104 MMOL/L (98-107); CREATININE FOR GFR 0.43 MG/DL (0.70-1.30); GLOMERULAR FILTRATION RATE > 60.0 (>56); GLUCOSE, FASTING 144 MG/DL (60-100); POTASSIUM SERUM 3.7 MMOL/L (3.5-5.1); SODIUM LEVEL 142 MMOL/L (136-145)
[2022-06-28] MEDS: BISACODYL 10 MG SUPP PR SCH ×2 (09:00→20:14)
[2022-06-28] MEDS: DOCUSATE SOD LIQ 100MG/10ML UDC GT SCH ×2 (09:30→20:28)
[2022-06-28] MEDS: ATORVASTATIN 20 MG TAB PO SCH (09:31)
[2022-06-28] MEDS: predniSONE 10 MG TAB PO SCH (09:31)
[2022-06-28] MEDS: MIDODRINE 5 MG TAB PO SCH ×3 (09:31→16:33)
[2022-06-28] MEDS: POTASSIUM CHLORIDE 10% LIQ 20 MEQ/15 ML UDC PO SCH ×2 (09:31→20:28)
[2022-06-28] MEDS: FERROUS SULFATE 300MG/5ML UDC LIQUID GT SCH (09:31)
[2022-06-28] MEDS: OMEPRAZOLE SUSPENSION 20MG 10ML ORAL SYRINGE GT SCH ×2 (09:31→20:28)
[2022-06-28] MEDS: CHLORHEXIDINE GLUCONATE 0.12 % 15ML UDC (PERIDEX ORAL RINSE) MT SCH ×2 (09:31→20:29)
[2022-06-28] MEDS: VALPROIC ACID 250MG/5ML SOL ORAL SYRINGE *DRAW UP EXACT DOSE PEG SCH ×3 (09:32→20:29)
[2022-06-28] MEDS: NYSTATIN 100,000 UNITS/GM TOPICAL PWD 15GM TOP SCH ×2 (09:32→20:27)
[2022-06-28] MEDS: KETOCONAZOLE 2% CREAM TOP SCH ×2 (09:32→20:27)
[2022-06-28] MEDS: LACOSAMIDE 50 MG TAB (VIMPAT) PO SCH ×2 (13:13→20:28)
[2022-06-28 14:00] VITALS: BP 133/81
[2022-06-28 22:00] VITALS: BP 98/66
[2022-06-29] MEDS: SODIUM CHLORIDE HYPERTONIC 3% 15ML NEB SOL INH SCH ×6 (03:58→23:39)
[2022-06-29] MEDS: ALBUTEROL SULFATE 2.5 MG/0.5 ML INH NEB SOLN NEB SCH ×6 (03:58→23:40)
[2022-06-29] MEDS: HEPARIN SOD (PORCINE) 5000UNITS/ML 1ML VIAL/SYRINGE SQ SCH ×3 (05:16→21:27)
[2022-06-29 06:00] VITALS: BP 97/62
[2022-06-29 06:07] LABS: BASO % 0.2 % (0.0-1.0); HEMATOCRIT 36.6 % (42.0-52.0); HEMOGLOBIN 11.5 g/dl (13.5-17.5); LYMPH # 0.7 10^3/uL (1.5-5.0); LYMPH % 11.4 % (24.0-44.0); MEAN CORPUSCULAR HEMOGLOBIN 31.3 pg (27.0-33.0); MEAN CORPUSCULAR HGB CONC 31.4 g/dl (32.0-36.5); MEAN CORPUSCULAR VOLUME 99.7 fl (80.0-96.0); MONO # 0.6 10^3/uL (0.0-0.8); MONO % 11.2 % (2.0-8.0); NEUTROPHILS # 4.3 10^3/uL (1.5-8.5); NEUTROPHILS % 76.3 % (36.0-66.0); PLATELET COUNT, AUTOMATED 240 10^3/uL (150-450); RED BLOOD COUNT 3.67 10^6/uL (4.30-6.10); WHITE BLOOD COUNT 5.7 10^3/uL (4.0-10.0)
[2022-06-29 06:23] LABS: BLOOD UREA NITROGEN 23 MG/DL (9-23); CALCIUM LEVEL 8.5 MG/DL (8.5-10.1); CARBON DIOXIDE LEVEL 32 MMOL/L (20-31); CHLORIDE LEVEL 106 MMOL/L (98-107); CREATININE FOR GFR 0.45 MG/DL (0.70-1.30); GLOMERULAR FILTRATION RATE > 60.0 (>56); GLUCOSE, FASTING 136 MG/DL (60-100); POTASSIUM SERUM 3.9 MMOL/L (3.5-5.1); SODIUM LEVEL 143 MMOL/L (136-145)
[2022-06-29] MEDS: BISACODYL 10 MG SUPP PR SCH ×3 (09:00→21:00)
[2022-06-29] MEDS: MIDODRINE 5 MG TAB PO SCH ×3 (09:15→15:04)
[2022-06-29] MEDS: LACOSAMIDE 50 MG TAB (VIMPAT) PO SCH ×2 (09:15→21:25)
[2022-06-29] MEDS: POTASSIUM CHLORIDE 10% LIQ 20 MEQ/15 ML UDC PO SCH ×2 (09:16→21:25)
[2022-06-29] MEDS: OMEPRAZOLE SUSPENSION 20MG 10ML ORAL SYRINGE GT SCH ×2 (09:16→21:25)
[2022-06-29] MEDS: ATORVASTATIN 20 MG TAB PO SCH (09:16)
[2022-06-29] MEDS: CHLORHEXIDINE GLUCONATE 0.12 % 15ML UDC (PERIDEX ORAL RINSE) MT SCH ×2 (09:16→23:47)
[2022-06-29] MEDS: DOCUSATE SOD LIQ 100MG/10ML UDC GT SCH ×2 (09:16→21:25)
[2022-06-29] MEDS: VALPROIC ACID 250MG/5ML SOL ORAL SYRINGE *DRAW UP EXACT DOSE PEG SCH ×3 (09:17→21:26)
[2022-06-29] MEDS: KETOCONAZOLE 2% CREAM TOP SCH ×2 (09:17→21:27)
[2022-06-29] MEDS: NYSTATIN 100,000 UNITS/GM TOPICAL PWD 15GM TOP SCH ×2 (09:17→23:48)
[2022-06-29] MEDS: HYDROCORTISONE 100 MG/2 ML VIAL (J1720 PER 1) IV SCH ×3 (11:27→23:31)
[2022-06-29] MEDS: FERROUS SULFATE 300MG/5ML UDC LIQUID GT SCH (11:27)
[2022-06-29 14:00] VITALS: BP 114/85
[2022-06-29 20:55] VITALS: BP 92/60
[2022-06-30] MEDS: ALBUTEROL SULFATE 2.5 MG/0.5 ML INH NEB SOLN NEB SCH ×4 (04:00→12:06)
[2022-06-30] MEDS: SODIUM CHLORIDE HYPERTONIC 3% 15ML NEB SOL INH SCH ×4 (04:00→12:06)
[2022-06-30 05:01] VITALS: BP 103/69
[2022-06-30] MEDS: HEPARIN SOD (PORCINE) 5000UNITS/ML 1ML VIAL/SYRINGE SQ SCH ×2 (05:04→13:23)
[2022-06-30] MEDS: KETOCONAZOLE 2% CREAM TOP SCH (09:09)
[2022-06-30] MEDS: BISACODYL 10 MG SUPP PR SCH (09:09)
[2022-06-30] MEDS: NYSTATIN 100,000 UNITS/GM TOPICAL PWD 15GM TOP SCH (09:09)
[2022-06-30] MEDS: DOCUSATE SOD LIQ 100MG/10ML UDC GT SCH (09:10)
[2022-06-30] MEDS: CHLORHEXIDINE GLUCONATE 0.12 % 15ML UDC (PERIDEX ORAL RINSE) MT SCH (09:10)
[2022-06-30] MEDS: FERROUS SULFATE 300MG/5ML UDC LIQUID GT SCH (09:10)
[2022-06-30] MEDS: POTASSIUM CHLORIDE 10% LIQ 20 MEQ/15 ML UDC PO SCH (09:10)
[2022-06-30] MEDS: MIDODRINE 5 MG TAB PO SCH ×2 (09:12→12:34)
[2022-06-30] MEDS: ATORVASTATIN 20 MG TAB PO SCH (09:12)
[2022-06-30] MEDS: LACOSAMIDE 50 MG TAB (VIMPAT) PO SCH (09:12)
[2022-06-30] MEDS: OMEPRAZOLE SUSPENSION 20MG 10ML ORAL SYRINGE GT SCH (09:13)
[2022-06-30] MEDS: VALPROIC ACID 250MG/5ML SOL ORAL SYRINGE *DRAW UP EXACT DOSE PEG SCH (09:14)
[2022-06-30] MEDS ORDERED: VARIBAR PUDDING 40% w/v 230ML TUBE As Ordered ONE (11:19)
[2022-06-30] MEDS ORDERED: VARIBAR NECTAR 40% w/v 240ML SUSP BTL As Ordered ONE (11:20)
[2022-06-30] MEDS ORDERED: BARIUM SULFATE 700 MG TABLET (E-Z-DISK) As Ordered ONE (11:20)
[2022-06-30] MEDS ORDERED: E-Z-PAQUE 96% w/w SUSP 176GM BTL As Ordered ONE (11:20)
[2022-06-30] MEDS ORDERED: HYDROCORTISONE 100 MG/2 ML VIAL (J1720 PER 1) IV SCH (12:00)
[2022-06-30] MEDS ORDERED: VIMP50TA3 PO (12:13)
[2022-06-30] MEDS ORDERED: SODI3NEB INH (12:13)
[2022-06-30] MEDS ORDERED: IPRA0.00 NEB (12:13)
[2022-06-30] MEDS ORDERED: FERR5MLUD GT (12:13)
[2022-06-30] MEDS ORDERED: ATOR1TAB21 PO (12:13)
[2022-06-30] MEDS ORDERED: VALP250S PEG (12:13)
[2022-06-30] MEDS ORDERED: NYST10006 TOP (12:13)
[2022-06-30] MEDS ORDERED: Omeprazole Suspension GT (12:13)
[2022-06-30] MEDS ORDERED: ALB2.5NEB NEB (12:13)
[2022-06-30] MEDS ORDERED: HYDR-4468 PO ×2 (12:13→12:46)
[2022-06-30] MEDS ORDERED: POTA20EL PO (12:13)
[2022-06-30] MEDS ORDERED: MIDO5TA PO (12:13)
== END 2022-06-30 14:50 | disposition home or self-care (01) | DRG 100 ==
LOC: M ED 08:08 → M ED INP 10:50 → ENRESERV 11:28 → M ICU 11:56 → M PCU 06-11 23:05 → M MS5PR 06-15 14:10
PROVIDERS: ADMIT Internal Medicine; ATTEND Internal Medicine
PROC: 30233N1 Transfusion of Nonautologous Red Blood Cells into Peripheral Vein, Percutaneous Approach (ICD-10-PCS; 2022-06-07)
PROC: 30233K1 Transfusion of Nonautologous Frozen Plasma into Peripheral Vein, Percutaneous Approach (ICD-10-PCS; 2022-06-08)
PROC: 0DH64UZ Insertion of Feeding Device into Stomach, Percutaneous Endoscopic Approach (ICD-10-PCS; 2022-06-12)
PROC: 05HB33Z Insertion of Infusion Device into Right Basilic Vein, Percutaneous Approach (ICD-10-PCS; 2022-06-12)
PROC: 0D9W30Z Drainage of Peritoneum with Drainage Device, Percutaneous Approach (ICD-10-PCS; principal; 2022-06-23 11:30)
DX: G40.909 Epilepsy, unspecified, not intractable, without status epilepticus (principal); J96.01 Acute respiratory failure with hypoxia; J96.02 Acute respiratory failure with hypercapnia; K66.1 Hemoperitoneum; J69.0 Pneumonitis due to inhalation of food and vomit; R57.8 Other shock; R57.1 Hypovolemic shock; A41.9 Sepsis, unspecified organism; R65.21 Severe sepsis with septic shock; J15.6 Pneumonia due to other Gram-negative bacteria; E87.20 Acidosis, unspecified; E87.4 Mixed disorder of acid-base balance; K92.2 Gastrointestinal hemorrhage, unspecified; D62 Acute posthemorrhagic anemia; J90 Pleural effusion, not elsewhere classified; G93.40 Encephalopathy, unspecified; E27.2 Addisonian crisis; E87.1 Hypo-osmolality and hyponatremia; K21.9 Gastro-esophageal reflux disease without esophagitis; E86.1 Hypovolemia; K59.00 Constipation, unspecified; Z79.899 Other long term (current) drug therapy; Z79.82 Long term (current) use of aspirin; Z88.0 Allergy status to penicillin; Z88.8 Allergy status to other drugs, medicaments and biological substances; Z91.018 Allergy to other foods; R68.0 Hypothermia, not associated with low environmental temperature; R13.10 Dysphagia, unspecified; E87.6 Hypokalemia

== ENCOUNTER → 2022-07-08 | Outpatient (REF) | payer MEDICARE, MEDICAID ==
[~2022-07-08] MED LIST changes: +ALB2.5NEB NEB; +DOXY100T PO; +FERR5MLUD GT; +IPRA0.00 NEB; +MIDO5TA PO; +NYST10006 TOP; +Omeprazole Suspension GT; +POTA20EL PO; +SODI3NEB INH; +VALP250S PEG; +VIMP50TA3 PO
[2022-07-08 13:15] LABS: BASO % 0.1 % (0.0-1.0); EOS # 0.1 10^3/uL (0.0-0.5); EOS % 1.5 % (0.0-3.0); HEMATOCRIT 41.4 % (42.0-52.0); HEMOGLOBIN 13.3 g/dl (13.5-17.5); LYMPH # 1.3 10^3/uL (1.5-5.0); LYMPH % 17.3 % (24.0-44.0); MEAN CORPUSCULAR HEMOGLOBIN 32.8 pg (27.0-33.0); MEAN CORPUSCULAR HGB CONC 32.1 g/dl (32.0-36.5); MONO % 13.3 % (2.0-8.0); NEUTROPHILS % 67.3 % (36.0-66.0); PLATELET COUNT, AUTOMATED 166 10^3/uL (150-450); RED BLOOD COUNT 4.06 10^6/uL (4.30-6.10); WHITE BLOOD COUNT 7.4 10^3/uL (4.0-10.0)
[2022-07-08 13:37] LABS: ALBUMIN 2.6 G/DL (3.2-5.2); ALKALINE PHOSPHATASE 77 U/L (46-116); ALT/SGPT 20 U/L (7.0-40); AST/SGOT 20 U/L (<34); BILIRUBIN,TOTAL 0.7 MG/DL (0.3-1.2); BLOOD UREA NITROGEN 19 MG/DL (9-23); CALCIUM LEVEL 8.1 MG/DL (8.5-10.1); CARBON DIOXIDE LEVEL 34 MMOL/L (20-31); CHLORIDE LEVEL 104 MMOL/L (98-107); CREATININE FOR GFR 0.47 MG/DL (0.70-1.30); GLOMERULAR FILTRATION RATE > 60.0 (>56); GLUCOSE, FASTING 83 MG/DL (60-100); POTASSIUM SERUM 4.6 MMOL/L (3.5-5.1); SODIUM LEVEL 142 MMOL/L (136-145); TOTAL PROTEIN 5.8 G/DL (5.7-8.2)
== END ==
LOC: M SHH 12:43
PROVIDERS: ATTEND Family Medicine
DX: D64.9 Anemia, unspecified (principal); Z79.899 Other long term (current) drug therapy

== ENCOUNTER 2022-09-30 09:55 | Inpatient (IN) | payer MEDICARE, MEDICAID ==
[~2022-09-30] VITALS: Ht 172.7 cm; Wt 69.0 kg
[2022-09-30] VITALS (14 sets, daily range): BP systolic 90–114; BP diastolic 53–61; O2SAT 89–95
[~2022-09-30 09:55] MED LIST changes: +ASPI81TA24 PEG; -ASPI81TA24 PO; +MIRA3350 PEG; +ONDA-83 PEG; -ONDA-83 PO; +TAMS1CAP17 PEG; +VITMTA PEG
[2022-09-30] MEDS ORDERED: HYDROCORTISONE 100MG/2ML VIAL IV ONE (10:10)
[2022-09-30] MEDS ORDERED: MEROPENEM INJ 1 GM in IV 1 EA IV ONE (10:10)
[2022-09-30] MEDS ORDERED: NS IV ONE (10:15)
[2022-09-30] MEDS ORDERED: ACETAMINOPHEN 650MG SUPP PR ONE (10:20)
[2022-09-30 10:28] LABS: HEMATOCRIT 40.4 % (42.0-52.0); MEAN CORPUSCULAR HEMOGLOBIN 33.7 pg (27.0-33.0); MEAN CORPUSCULAR HGB CONC 34.7 g/dl (32.0-36.5); MEAN CORPUSCULAR VOLUME 97.3 fl (80.0-96.0); PLATELET COUNT, AUTOMATED 140 10^3/uL (150-450); RED BLOOD COUNT 4.15 10^6/uL (4.30-6.10); WHITE BLOOD COUNT 7.7 10^3/uL (4.0-10.0)
[2022-09-30 10:51] LABS: ALBUMIN 2.8 G/DL (3.2-5.2); ALKALINE PHOSPHATASE 78 U/L (46-116); ALT/SGPT 20 U/L (7.0-40); AST/SGOT 19 U/L (<34); BILIRUBIN,DIRECT 0.3 MG/DL (<0.4); BILIRUBIN,TOTAL 0.7 MG/DL (0.3-1.2); BLOOD UREA NITROGEN 33 MG/DL (9-23); CALCIUM LEVEL 8.8 MG/DL (8.5-10.1); CARBON DIOXIDE LEVEL 28 MMOL/L (20-31); CHLORIDE LEVEL 96 MMOL/L (98-107); CREATININE FOR GFR 0.62 MG/DL (0.70-1.30); GLOMERULAR FILTRATION RATE > 60.0 (>56); GLUCOSE, FASTING 136 MG/DL (60-100); POTASSIUM SERUM 4.7 MMOL/L (3.5-5.1); SODIUM LEVEL 131 MMOL/L (136-145); TOTAL PROTEIN 6.7 G/DL (5.7-8.2)
[2022-09-30 10:53] LABS: THYROID STIMULATING HORMONE 1.396 uIU/ML (0.55-4.78)
[2022-09-30 11:38] LABS: ATYPICAL LYMPH 3 % (0-5); LYMPHOCYTES 10 % (16-44); MONOCYTES 17 % (0-5); NEUTROPHILS 49 % (28-66); PLATELET ESTIMATE NORMAL (NORMAL); POLYCHROMASIA 1+
[2022-09-30] MEDS ORDERED: NS 1,000 ML IV ONE (12:35)
[2022-09-30] MEDS ORDERED: POTA20EL PEG (12:45)
[2022-09-30] MEDS ORDERED: OMEP40CA5 PEG (12:45)
[2022-09-30] MEDS ORDERED: DOXY100C3 PEG (12:45)
[2022-09-30] MEDS ORDERED: [UNRECOGNIZED DRUG - CODE] PEG (12:45)
[2022-09-30] MEDS ORDERED: LACO10SO10 PEG (12:45)
[2022-09-30] MEDS ORDERED: NYST1POW9 TOP (12:45)
[2022-09-30] MEDS ORDERED: SENN15UDC PEG (12:45)
[2022-09-30] MEDS ORDERED: FERR325T18 PEG (12:45)
[2022-09-30] MEDS ORDERED: VALP250S PEG (12:45)
[2022-09-30] MEDS ORDERED: IPRA0.00 INH (12:46)
[2022-09-30] MEDS ORDERED: HOME MED LIST COMPLETE! XX SCH (12:50)
[2022-09-30] MEDS ORDERED: LEVALBUTEROL 1.25MG 0.5ML CONCENTRATE NEB NEB SCH (13:00)
[2022-09-30] MEDS ORDERED: ONDANSETRON 4MG 2ML VIAL IV PRN (13:15)
[2022-09-30 13:58] LABS: INR 1.24; PARTIAL THROMBOPLASTIN TIME 34.7 SECONDS (24.8-34.2); PROTHROMBIN TIME 15.9 SECONDS (12.5-14.5)
[2022-09-30] MEDS ORDERED: ACETAMINOPHEN 650MG SUPP PR PRN (14:00)
[2022-09-30] MEDS: NS 1,000 ML IV SCH ×2 (14:49→16:20)
[2022-09-30] MEDS: LEVALBUTEROL 1.25MG 0.5ML CONCENTRATE NEB NEB SCH ×2 (15:53→19:19)
[2022-09-30 16:39] LABS: ABG BASE EXCESS -0.4 (-2.0-2.0); ABG HCO3 23.9 MEQ/L (22.0-26.0); ABG PARTIAL PRESSURE CO2 38.1 mmHg (35.0-45.0); ABG PARTIAL PRESSURE O2 60.8 mmHg (75.0-100.0); ABG TOTAL CO2 25.1 MEQ/L (22.0-29.0); ABG pH (ARTERIAL) 7.415 UNITS (7.350-7.450)
[2022-09-30] MEDS: HYDROCORTISONE 100MG/2ML VIAL IV SCH ×2 (17:50→23:21)
[2022-09-30] MEDS ORDERED: cefTRIAXone SOD 1 GM in D5W MINI-BAG PLUS 50 ML IV SCH (18:00)
[2022-09-30] MEDS: DOXYCYCLINE HYCLATE 100 MG in D5W MINI-BAG PLUS 100 ML IV SCH (20:10)
[2022-09-30] MEDS ORDERED: PANTOPRAZOLE 40MG VIAL IV SCH (21:00)
[2022-09-30] MEDS: ENOXAPARIN 40MG/0.4ML SYRINGE (J1650 PER 10MG) SC SCH (21:10)
[2022-09-30] MEDS: LACOSAMIDE 10MG/ML 20ML VIAL (VIMPAT) IV SCH (21:18)
[2022-09-30] MEDS: VALPROATE SOD INJ 500 MG in D5W 50 ML IV SCH (21:44)
[2022-10-01] VITALS (26 sets, daily range): BP systolic 96–119; BP diastolic 56–71; O2SAT 84–99
[2022-10-01] MEDS: NS 1,000 ML IV SCH ×2 (03:04→12:40)
[2022-10-01] MEDS: LEVALBUTEROL 1.25MG 0.5ML CONCENTRATE NEB NEB PRN ×2 (03:19→13:05)
[2022-10-01] MEDS: HYDROCORTISONE 100MG/2ML VIAL IV SCH ×4 (05:04→22:43)
[2022-10-01 06:19] LABS: HEMATOCRIT 37.9 % (42.0-52.0); HEMOGLOBIN 12.7 g/dl (13.5-17.5); MEAN CORPUSCULAR HEMOGLOBIN 33.2 pg (27.0-33.0); MEAN CORPUSCULAR HGB CONC 33.5 g/dl (32.0-36.5); MEAN CORPUSCULAR VOLUME 99.2 fl (80.0-96.0); PLATELET COUNT, AUTOMATED 117 10^3/uL (150-450); RED BLOOD COUNT 3.82 10^6/uL (4.30-6.10); WHITE BLOOD COUNT 5.7 10^3/uL (4.0-10.0)
[2022-10-01 06:50] LABS: ALBUMIN 2.1 G/DL (3.2-5.2); ALKALINE PHOSPHATASE 51 U/L (46-116); ALT/SGPT 15 U/L (7.0-40); AST/SGOT 23 U/L (<34); BILIRUBIN,TOTAL 0.4 MG/DL (0.3-1.2); BLOOD UREA NITROGEN 23 MG/DL (9-23); CALCIUM LEVEL 8.1 MG/DL (8.5-10.1); CARBON DIOXIDE LEVEL 27 MMOL/L (20-31); CHLORIDE LEVEL 103 MMOL/L (98-107); CREATININE FOR GFR 0.39 MG/DL (0.70-1.30); GLOMERULAR FILTRATION RATE > 60.0 (>56); GLUCOSE, FASTING 104 MG/DL (60-100); POTASSIUM SERUM 3.8 MMOL/L (3.5-5.1); SODIUM LEVEL 136 MMOL/L (136-145); TOTAL PROTEIN 5.3 G/DL (5.7-8.2)
[2022-10-01] MEDS: LEVALBUTEROL 1.25MG 0.5ML CONCENTRATE NEB NEB SCH ×4 (07:38→19:16)
[2022-10-01] MEDS: DOXYCYCLINE HYCLATE 100 MG in D5W MINI-BAG PLUS 100 ML IV SCH (08:06)
[2022-10-01 08:09] LABS: ABG BASE EXCESS -0.5 (-2.0-2.0); ABG HCO3 23.5 MEQ/L (22.0-26.0); ABG O2 SATURATION 89.5 % (95.0-99.0); ABG PARTIAL PRESSURE CO2 36.8 mmHg (35.0-45.0); ABG PARTIAL PRESSURE O2 52.6 mmHg (75.0-100.0); ABG STANDARD HCO3 23.9 MEQ/L (22.0-26.0); ABG TOTAL CO2 24.7 MEQ/L (22.0-29.0); ABG pH (ARTERIAL) 7.424 UNITS (7.350-7.450)
[2022-10-01] MEDS: LACOSAMIDE 10MG/ML 20ML VIAL (VIMPAT) IV SCH ×2 (09:53→21:47)
[2022-10-01] MEDS: BISACODYL 10MG SUPP PR SCH (09:57)
[2022-10-01] MEDS: VALPROATE SOD INJ 500 MG in D5W 50 ML IV SCH (11:26)
[2022-10-01] MEDS ORDERED: ONDANSETRON 4MG TAB PEG PRN (13:40)
[2022-10-01] MEDS: OMEPRAZOLE SUSPENSION 20MG 10ML ORAL SYRINGE GT SCH (14:37)
[2022-10-01] MEDS: CEFEPIME HCL 2 GM in D5W MINI-BAG PLUS 50 ML IV SCH ×2 (14:37→22:48)
[2022-10-01] MEDS ORDERED: VANCOMYCIN HCL 1,000 MG, VIAL MATE ADAPTER 1 EACH in D5W 250 ML IV ONE (16:00)
[2022-10-01] MEDS: VANCOMYCIN HCL 1,000 MG, VIAL MATE ADAPTER 1 EACH in NS 250 ML IV SCH (20:36)
[2022-10-01] MEDS: ENOXAPARIN 40MG/0.4ML SYRINGE (J1650 PER 10MG) SC SCH (20:42)
[2022-10-01] MEDS: VALPROIC ACID 250MG/5ML SOL ORAL SYRINGE *DRAW UP EXACT DOSE PEG SCH (21:47)
[2022-10-02] VITALS (21 sets, daily range): BP systolic 107–127; BP diastolic 57–76; O2SAT 89–98
[2022-10-02] MEDS: HYDROCORTISONE 100MG/2ML VIAL IV SCH ×4 (05:13→23:01)
[2022-10-02] MEDS: CEFEPIME HCL 2 GM in D5W MINI-BAG PLUS 50 ML IV SCH ×3 (05:13→23:01)
[2022-10-02 07:22] LABS: HEMATOCRIT 37.3 % (42.0-52.0); HEMOGLOBIN 12.9 g/dl (13.5-17.5); MEAN CORPUSCULAR HEMOGLOBIN 33.2 pg (27.0-33.0); MEAN CORPUSCULAR HGB CONC 34.6 g/dl (32.0-36.5); MEAN CORPUSCULAR VOLUME 95.9 fl (80.0-96.0); PLATELET COUNT, AUTOMATED 145 10^3/uL (150-450); RED BLOOD COUNT 3.89 10^6/uL (4.30-6.10)
[2022-10-02 07:46] LABS: VANCOMYCIN LEVEL TROUGH 9.4 UG/ML (10.0-20.0)
[2022-10-02 07:56] LABS: ALBUMIN 1.8 G/DL (3.2-5.2); ALKALINE PHOSPHATASE 76 U/L (46-116); ALT/SGPT 24 U/L (7.0-40); AST/SGOT 27 U/L (<34); BILIRUBIN,TOTAL 0.4 MG/DL (0.3-1.2); BLOOD UREA NITROGEN 18 MG/DL (9-23); CALCIUM LEVEL 7.7 MG/DL (8.5-10.1); CARBON DIOXIDE LEVEL 29 MMOL/L (20-31); CHLORIDE LEVEL 100 MMOL/L (98-107); CREATININE FOR GFR 0.32 MG/DL (0.70-1.30); GLOMERULAR FILTRATION RATE > 60.0 (>56); GLUCOSE, FASTING 125 MG/DL (60-100); POTASSIUM SERUM 3.2 MMOL/L (3.5-5.1); SODIUM LEVEL 135 MMOL/L (136-145); TOTAL PROTEIN 4.9 G/DL (5.7-8.2)
[2022-10-02] MEDS: LEVALBUTEROL 1.25MG 0.5ML CONCENTRATE NEB NEB SCH ×4 (08:00→19:51)
[2022-10-02] MEDS: VANCOMYCIN HCL 1,000 MG, VIAL MATE ADAPTER 1 EACH in NS 250 ML IV SCH ×2 (08:36→20:21)
[2022-10-02] MEDS: FERROUS SULFATE 300MG/5ML UDC LIQUID PEG SCH (08:36)
[2022-10-02] MEDS: NS 1,000 ML IV SCH ×2 (08:36→15:24)
[2022-10-02] MEDS: OMEPRAZOLE SUSPENSION 20MG 10ML ORAL SYRINGE GT SCH (08:37)
[2022-10-02] MEDS ORDERED: FERROUS SULFATE 325MG TAB PEG SCH (09:00)
[2022-10-02] MEDS ORDERED: TAMSULOSIN 0.4 MG CAP PO SCH (09:00)
[2022-10-02] MEDS: VALPROIC ACID 250MG/5ML SOL ORAL SYRINGE *DRAW UP EXACT DOSE PEG SCH ×2 (10:22→20:31)
[2022-10-02] MEDS: LACOSAMIDE 10MG/ML 20ML VIAL (VIMPAT) IV SCH ×2 (10:22→20:23)
[2022-10-02] MEDS: BISACODYL 10MG SUPP PR SCH (10:23)
[2022-10-02] MEDS ORDERED: POTASSIUM CHLORIDE 10% LIQ 20MEQ/15ML UDC GT ONE (12:25)
[2022-10-02] MEDS: ACETAMINOPHEN 325MG/10.15ML UDC GT PRN ×2 (12:44→20:22)
[2022-10-02 13:08] LABS: ABG BASE EXCESS 3.9 (-2.0-2.0); ABG HCO3 27.6 MEQ/L (22.0-26.0); ABG O2 SATURATION 97.3 % (95.0-99.0); ABG PARTIAL PRESSURE CO2 38.5 mmHg (35.0-45.0); ABG PARTIAL PRESSURE O2 87.2 mmHg (75.0-100.0); ABG TOTAL CO2 28.8 MEQ/L (22.0-29.0); ABG pH (ARTERIAL) 7.474 UNITS (7.350-7.450)
[2022-10-02] MEDS: ENOXAPARIN 40MG/0.4ML SYRINGE (J1650 PER 10MG) SC SCH (20:22)
[2022-10-03] VITALS: BP 110/65
[2022-10-03] MEDS: NYSTATIN 100,000 UNITS/GM TOPICAL PWD 15GM TOP PRN ×2 (03:12→21:23)
[2022-10-03] MEDS: CEFEPIME HCL 2 GM in D5W MINI-BAG PLUS 50 ML IV SCH ×3 (05:09→21:22)
[2022-10-03] MEDS: HYDROCORTISONE 100MG/2ML VIAL IV SCH ×4 (05:09→23:30)
[2022-10-03 07:22] LABS: HEMATOCRIT 39.3 % (42.0-52.0); HEMOGLOBIN 13.2 g/dl (13.5-17.5); MEAN CORPUSCULAR HEMOGLOBIN 33.3 pg (27.0-33.0); MEAN CORPUSCULAR HGB CONC 33.6 g/dl (32.0-36.5); MEAN CORPUSCULAR VOLUME 99.2 fl (80.0-96.0); PLATELET COUNT, AUTOMATED 185 10^3/uL (150-450); RED BLOOD COUNT 3.96 10^6/uL (4.30-6.10); WHITE BLOOD COUNT 8.3 10^3/uL (4.0-10.0)
[2022-10-03 07:29] VITALS: BP 133/87
[2022-10-03 07:57] LABS: ALBUMIN 2.1 G/DL (3.2-5.2); ALKALINE PHOSPHATASE 96 U/L (46-116); ALT/SGPT 26 U/L (7.0-40); AST/SGOT 30 U/L (<34); BILIRUBIN,TOTAL 0.4 MG/DL (0.3-1.2); BLOOD UREA NITROGEN 15 MG/DL (9-23); CALCIUM LEVEL 7.8 MG/DL (8.5-10.1); CARBON DIOXIDE LEVEL 32 MMOL/L (20-31); CHLORIDE LEVEL 104 MMOL/L (98-107); CREATININE FOR GFR 0.33 MG/DL (0.70-1.30); GLOMERULAR FILTRATION RATE > 60.0 (>56); GLUCOSE, FASTING 152 MG/DL (60-100); POTASSIUM SERUM 3.3 MMOL/L (3.5-5.1); SODIUM LEVEL 140 MMOL/L (136-145); TOTAL PROTEIN 5.7 G/DL (5.7-8.2)
[2022-10-03] MEDS: LEVALBUTEROL 1.25MG 0.5ML CONCENTRATE NEB NEB SCH ×4 (08:14→19:36)
[2022-10-03] MEDS: OMEPRAZOLE SUSPENSION 20MG 10ML ORAL SYRINGE GT SCH (08:48)
[2022-10-03] MEDS: VALPROIC ACID 250MG/5ML SOL ORAL SYRINGE *DRAW UP EXACT DOSE PEG SCH ×2 (08:48→21:24)
[2022-10-03] MEDS: LACOSAMIDE 10MG/ML 20ML VIAL (VIMPAT) IV SCH ×2 (08:48→21:22)
[2022-10-03] MEDS: FERROUS SULFATE 300MG/5ML UDC LIQUID PEG SCH (08:49)
[2022-10-03 12:10] VITALS: BP 108/54
[2022-10-03] MEDS: BISACODYL 10MG SUPP PR SCH (13:48)
[2022-10-03] MEDS: POTASSIUM CHLORIDE 10% LIQ 20MEQ/15ML UDC PEG SCH ×2 (13:48→21:23)
[2022-10-03] MEDS: ACETAMINOPHEN 325MG/10.15ML UDC GT PRN (15:12)
[2022-10-03] MEDS: MIRALAX *UNIT DOSE* 17GM PACKET PEG PRN (15:12)
[2022-10-03 16:00] VITALS: BP 129/69
[2022-10-03] MEDS: SENNA SYRUP 15 ML UDC PEG PRN (16:30)
[2022-10-03 20:13] VITALS: BP 120/81
[2022-10-03] MEDS: ENOXAPARIN 40MG/0.4ML SYRINGE (J1650 PER 10MG) SC SCH (21:24)
[2022-10-03 23:55] VITALS: BP 122/70
[2022-10-04 04:14] VITALS: BP 116/74
[2022-10-04] MEDS: CEFEPIME HCL 2 GM in D5W MINI-BAG PLUS 50 ML IV SCH ×3 (05:13→21:56)
[2022-10-04] MEDS: HYDROCORTISONE 100MG/2ML VIAL IV SCH ×3 (05:13→23:54)
[2022-10-04 06:22] LABS: HEMOGLOBIN 13.3 g/dl (13.5-17.5); MEAN CORPUSCULAR HEMOGLOBIN 33.3 pg (27.0-33.0); MEAN CORPUSCULAR HGB CONC 34.1 g/dl (32.0-36.5); MEAN CORPUSCULAR VOLUME 97.7 fl (80.0-96.0); PLATELET COUNT, AUTOMATED 181 10^3/uL (150-450); RED BLOOD COUNT 3.99 10^6/uL (4.30-6.10); WHITE BLOOD COUNT 9.8 10^3/uL (4.0-10.0)
[2022-10-04 06:53] LABS: ALBUMIN 1.8 G/DL (3.2-5.2); ALKALINE PHOSPHATASE 94 U/L (46-116); ALT/SGPT 25 U/L (7.0-40); AST/SGOT 26 U/L (<34); BILIRUBIN,TOTAL 0.2 MG/DL (0.3-1.2); BLOOD UREA NITROGEN 15 MG/DL (9-23); CALCIUM LEVEL 7.4 MG/DL (8.5-10.1); CARBON DIOXIDE LEVEL 36 MMOL/L (20-31); CHLORIDE LEVEL 100 MMOL/L (98-107); CREATININE FOR GFR 0.31 MG/DL (0.70-1.30); GLOMERULAR FILTRATION RATE > 60.0 (>56); GLUCOSE, FASTING 143 MG/DL (60-100); POTASSIUM SERUM 3.4 MMOL/L (3.5-5.1); SODIUM LEVEL 139 MMOL/L (136-145); TOTAL PROTEIN 5.2 G/DL (5.7-8.2)
[2022-10-04 07:22] VITALS: BP 122/69
[2022-10-04] MEDS ORDERED: POTASSIUM CHLORIDE 10% LIQ 20MEQ/15ML UDC GT ONE (07:40)
[2022-10-04] MEDS: LEVALBUTEROL 1.25MG 0.5ML CONCENTRATE NEB NEB SCH ×4 (08:08→19:24)
[2022-10-04] MEDS: LACOSAMIDE 10MG/ML 20ML VIAL (VIMPAT) IV SCH ×2 (08:37→21:55)
[2022-10-04] MEDS: FERROUS SULFATE 300MG/5ML UDC LIQUID PEG SCH (08:37)
[2022-10-04] MEDS: MIRALAX *UNIT DOSE* 17GM PACKET PEG PRN (08:38)
[2022-10-04] MEDS: VALPROIC ACID 250MG/5ML SOL ORAL SYRINGE *DRAW UP EXACT DOSE PEG SCH ×2 (08:38→21:57)
[2022-10-04] MEDS: OMEPRAZOLE SUSPENSION 20MG 10ML ORAL SYRINGE GT SCH (08:38)
[2022-10-04] MEDS: POTASSIUM CHLORIDE 10% LIQ 20MEQ/15ML UDC PEG SCH ×2 (11:30→21:56)
[2022-10-04] MEDS: BISACODYL 10MG SUPP PR SCH (11:30)
[2022-10-04 11:37] VITALS: BP 120/58
[2022-10-04 15:55] VITALS: BP 136/60
[2022-10-04 20:08] VITALS: BP 145/66
[2022-10-04] MEDS: ENOXAPARIN 40MG/0.4ML SYRINGE (J1650 PER 10MG) SC SCH (21:56)
[2022-10-05] VITALS: BP 106/57
[2022-10-05 04:18] VITALS: BP 128/75
[2022-10-05] MEDS: CEFEPIME HCL 2 GM in D5W MINI-BAG PLUS 50 ML IV SCH ×3 (05:35→22:57)
[2022-10-05 06:21] LABS: HEMATOCRIT 38.6 % (42.0-52.0); MEAN CORPUSCULAR HEMOGLOBIN 33.2 pg (27.0-33.0); MEAN CORPUSCULAR HGB CONC 33.7 g/dl (32.0-36.5); MEAN CORPUSCULAR VOLUME 98.7 fl (80.0-96.0); PLATELET COUNT, AUTOMATED 194 10^3/uL (150-450); RED BLOOD COUNT 3.91 10^6/uL (4.30-6.10); WHITE BLOOD COUNT 8.7 10^3/uL (4.0-10.0)
[2022-10-05 06:48] LABS: ALKALINE PHOSPHATASE 92 U/L (46-116); ALT/SGPT 27 U/L (7.0-40); AST/SGOT 31 U/L (<34); BILIRUBIN,TOTAL 0.3 MG/DL (0.3-1.2); BLOOD UREA NITROGEN 18 MG/DL (9-23); CALCIUM LEVEL 7.6 MG/DL (8.5-10.1); CARBON DIOXIDE LEVEL 38 MMOL/L (20-31); CHLORIDE LEVEL 101 MMOL/L (98-107); CREATININE FOR GFR 0.34 MG/DL (0.70-1.30); GLOMERULAR FILTRATION RATE > 60.0 (>56); GLUCOSE, FASTING 137 MG/DL (60-100); POTASSIUM SERUM 3.7 MMOL/L (3.5-5.1); SODIUM LEVEL 140 MMOL/L (136-145); TOTAL PROTEIN 5.3 G/DL (5.7-8.2)
[2022-10-05] MEDS: LEVALBUTEROL 1.25MG 0.5ML CONCENTRATE NEB NEB SCH ×4 (07:27→19:55)
[2022-10-05 08:00] VITALS: BP 118/56
[2022-10-05] MEDS: LACOSAMIDE 10MG/ML 20ML VIAL (VIMPAT) IV SCH ×2 (09:00→21:20)
[2022-10-05] MEDS: FERROUS SULFATE 300MG/5ML UDC LIQUID PEG SCH (09:02)
[2022-10-05] MEDS: MIRALAX *UNIT DOSE* 17GM PACKET PEG PRN (09:02)
[2022-10-05] MEDS: VALPROIC ACID 250MG/5ML SOL ORAL SYRINGE *DRAW UP EXACT DOSE PEG SCH ×2 (09:02→21:20)
[2022-10-05] MEDS: POTASSIUM CHLORIDE 10% LIQ 20MEQ/15ML UDC PEG SCH ×2 (09:02→21:20)
[2022-10-05] MEDS: OMEPRAZOLE SUSPENSION 20MG 10ML ORAL SYRINGE GT SCH (09:02)
[2022-10-05] MEDS: ACETAMINOPHEN 325MG/10.15ML UDC GT PRN (09:55)
[2022-10-05] MEDS: HYDROCORTISONE 100MG/2ML VIAL IV SCH (11:30)
[2022-10-05 11:39] VITALS: BP 100/57
[2022-10-05] MEDS: BISACODYL 10MG SUPP PR SCH (12:49)
[2022-10-05 15:58] VITALS: BP 121/63
[2022-10-05 20:00] VITALS: BP 108/59
[2022-10-05] MEDS: ENOXAPARIN 40MG/0.4ML SYRINGE (J1650 PER 10MG) SC SCH (21:20)
[2022-10-06] VITALS: BP 130/62
[2022-10-06] MEDS: HYDROCORTISONE 100MG/2ML VIAL IV SCH ×3 (00:10→22:35)
[2022-10-06 04:00] VITALS: BP 142/73
[2022-10-06] MEDS: CEFEPIME HCL 2 GM in D5W MINI-BAG PLUS 50 ML IV SCH ×3 (05:48→22:35)
[2022-10-06 06:12] LABS: HEMATOCRIT 37.8 % (42.0-52.0); HEMOGLOBIN 12.8 g/dl (13.5-17.5); MEAN CORPUSCULAR HEMOGLOBIN 33.6 pg (27.0-33.0); MEAN CORPUSCULAR HGB CONC 33.9 g/dl (32.0-36.5); MEAN CORPUSCULAR VOLUME 99.2 fl (80.0-96.0); PLATELET COUNT, AUTOMATED 218 10^3/uL (150-450); RED BLOOD COUNT 3.81 10^6/uL (4.30-6.10); WHITE BLOOD COUNT 8.6 10^3/uL (4.0-10.0)
[2022-10-06 06:34] LABS: ALBUMIN 2.1 G/DL (3.2-5.2); ALKALINE PHOSPHATASE 92 U/L (46-116); ALT/SGPT 33 U/L (7.0-40); AST/SGOT 28 U/L (<34); BILIRUBIN,TOTAL 0.3 MG/DL (0.3-1.2); BLOOD UREA NITROGEN 21 MG/DL (9-23); CALCIUM LEVEL 7.8 MG/DL (8.5-10.1); CARBON DIOXIDE LEVEL 36 MMOL/L (20-31); CHLORIDE LEVEL 102 MMOL/L (98-107); CREATININE FOR GFR 0.34 MG/DL (0.70-1.30); GLOMERULAR FILTRATION RATE > 60.0 (>56); GLUCOSE, FASTING 127 MG/DL (60-100); POTASSIUM SERUM 3.9 MMOL/L (3.5-5.1); SODIUM LEVEL 142 MMOL/L (136-145); TOTAL PROTEIN 5.5 G/DL (5.7-8.2)
[2022-10-06 07:45] VITALS: BP 117/63
[2022-10-06] MEDS: LEVALBUTEROL 1.25MG 0.5ML CONCENTRATE NEB NEB SCH ×4 (07:51→20:56)
[2022-10-06] MEDS: POTASSIUM CHLORIDE 10% LIQ 20MEQ/15ML UDC PEG SCH ×2 (09:36→21:00)
[2022-10-06] MEDS: LACOSAMIDE 10MG/ML 20ML VIAL (VIMPAT) IV SCH ×2 (09:36→22:25)
[2022-10-06] MEDS: FERROUS SULFATE 300MG/5ML UDC LIQUID PEG SCH (09:37)
[2022-10-06] MEDS: VALPROIC ACID 250MG/5ML SOL ORAL SYRINGE *DRAW UP EXACT DOSE PEG SCH ×2 (09:37→22:25)
[2022-10-06] MEDS: OMEPRAZOLE SUSPENSION 20MG 10ML ORAL SYRINGE GT SCH (09:37)
[2022-10-06] MEDS: BISACODYL 10MG SUPP PR SCH (09:58)
[2022-10-06 16:00] VITALS: BP 118/65
[2022-10-06 20:00] VITALS: BP 114/68
[2022-10-06] MEDS: ENOXAPARIN 40MG/0.4ML SYRINGE (J1650 PER 10MG) SC SCH (21:00)
[2022-10-07 06:00] VITALS: BP 117/69
[2022-10-07] MEDS: CEFEPIME HCL 2 GM in D5W MINI-BAG PLUS 50 ML IV SCH ×3 (06:33→22:21)
[2022-10-07] MEDS: LEVALBUTEROL 1.25MG 0.5ML CONCENTRATE NEB NEB SCH ×4 (08:09→19:51)
[2022-10-07] MEDS: POTASSIUM CHLORIDE 10% LIQ 20MEQ/15ML UDC PEG SCH ×2 (09:27→21:09)
[2022-10-07] MEDS: FERROUS SULFATE 300MG/5ML UDC LIQUID PEG SCH (09:27)
[2022-10-07] MEDS: BISACODYL 10MG SUPP PR SCH (09:27)
[2022-10-07] MEDS: ACETAMINOPHEN 325MG/10.15ML UDC GT PRN (09:27)
[2022-10-07] MEDS: VALPROIC ACID 250MG/5ML SOL ORAL SYRINGE *DRAW UP EXACT DOSE PEG SCH ×2 (09:28→21:10)
[2022-10-07] MEDS: OMEPRAZOLE SUSPENSION 20MG 10ML ORAL SYRINGE GT SCH (09:28)
[2022-10-07] MEDS: LACOSAMIDE 10MG/ML 20ML VIAL (VIMPAT) IV SCH ×2 (09:40→21:07)
[2022-10-07] MEDS ORDERED: HYDROCORTISONE 100MG/2ML VIAL IV SCH (11:00)
[2022-10-07] MEDS: SENNA SYRUP 15 ML UDC PEG PRN (12:44)
[2022-10-07] MEDS: MIRALAX *UNIT DOSE* 17GM PACKET PEG PRN (12:44)
[2022-10-07 18:00] VITALS: BP 139/68
[2022-10-07] MEDS ORDERED: PILL CUTTER 1 EACH XX PRN (18:15)
[2022-10-07 21:00] VITALS: BP 129/73
[2022-10-07] MEDS: HYDROCORTISONE 10 MG TAB PO SCH (21:09)
[2022-10-07] MEDS: ENOXAPARIN 40MG/0.4ML SYRINGE (J1650 PER 10MG) SC SCH (21:09)
[2022-10-07 22:15] VITALS: BP 126/72
[2022-10-08 05:00] VITALS: BP 133/76
[2022-10-08] MEDS: CEFEPIME HCL 2 GM in D5W MINI-BAG PLUS 50 ML IV SCH ×3 (05:42→23:11)
[2022-10-08] MEDS: LEVALBUTEROL 1.25MG 0.5ML CONCENTRATE NEB NEB SCH ×4 (07:04→19:32)
[2022-10-08] MEDS: VALPROIC ACID 250MG/5ML SOL ORAL SYRINGE *DRAW UP EXACT DOSE PEG SCH ×2 (08:56→20:12)
[2022-10-08] MEDS: OMEPRAZOLE SUSPENSION 20MG 10ML ORAL SYRINGE GT SCH (08:56)
[2022-10-08] MEDS: LACOSAMIDE 10MG/ML 20ML VIAL (VIMPAT) IV SCH ×2 (08:56→20:13)
[2022-10-08] MEDS: HYDROCORTISONE 10 MG TAB PO SCH (08:57)
[2022-10-08] MEDS: POTASSIUM CHLORIDE 10% LIQ 20MEQ/15ML UDC PEG SCH ×2 (08:59→20:13)
[2022-10-08] MEDS: BISACODYL 10MG SUPP PR SCH (08:59)
[2022-10-08] MEDS: FERROUS SULFATE 300MG/5ML UDC LIQUID PEG SCH (08:59)
[2022-10-08] MEDS: ACETAMINOPHEN 325MG/10.15ML UDC GT PRN (09:15)
[2022-10-08 14:00] VITALS: BP 95/58
[2022-10-08 14:28] VITALS: BP 80/52
[2022-10-08] MEDS ORDERED: NS 1,000 ML IV ONE ×2 (14:35→15:30)
[2022-10-08] MEDS: MIDODRINE 5 MG TAB PO SCH (15:06)
[2022-10-08 15:56] VITALS: BP 122/64
[2022-10-08] MEDS: HYDROCORTISONE 100MG/2ML VIAL IV SCH ×2 (16:06→20:13)
[2022-10-08 18:55] VITALS: BP 118/68
[2022-10-08] MEDS ORDERED: IPRATROPIUM 0.5MG/ALBUTEROL 2.5MG INH SOL UD 3ML (DUONEB) NEB SCH (19:15)
[2022-10-08 20:00] VITALS: BP 113/70
[2022-10-08] MEDS: ENOXAPARIN 40MG/0.4ML SYRINGE (J1650 PER 10MG) SC SCH (20:12)
[2022-10-09] MEDS: HYDROCORTISONE 100MG/2ML VIAL IV SCH ×2 (04:01→09:40)
[2022-10-09] MEDS: CEFEPIME HCL 2 GM in D5W MINI-BAG PLUS 50 ML IV SCH ×3 (05:22→21:45)
[2022-10-09 05:35] VITALS: BP 113/70
[2022-10-09] MEDS: LEVALBUTEROL 1.25MG 0.5ML CONCENTRATE NEB NEB SCH ×4 (07:54→20:02)
[2022-10-09] MEDS: OMEPRAZOLE SUSPENSION 20MG 10ML ORAL SYRINGE GT SCH (09:40)
[2022-10-09] MEDS: MIDODRINE 5 MG TAB PO SCH ×3 (09:40→17:52)
[2022-10-09] MEDS: FERROUS SULFATE 300MG/5ML UDC LIQUID PEG SCH (09:40)
[2022-10-09] MEDS: BISACODYL 10MG SUPP PR SCH (09:41)
[2022-10-09] MEDS: VALPROIC ACID 250MG/5ML SOL ORAL SYRINGE *DRAW UP EXACT DOSE PEG SCH ×2 (09:41→21:34)
[2022-10-09] MEDS: LACOSAMIDE 10MG/ML 20ML VIAL (VIMPAT) IV SCH ×2 (09:41→21:45)
[2022-10-09] MEDS: POTASSIUM CHLORIDE 10% LIQ 20MEQ/15ML UDC PEG SCH ×2 (09:41→21:29)
[2022-10-09] MEDS: MOM 30ML SUSPENSION UDC PO SCH ×3 (11:12→17:52)
[2022-10-09] MEDS: HYDROCORTISONE 10 MG TAB PO SCH ×2 (13:22→21:31)
[2022-10-09 14:00] VITALS: BP 121/66
[2022-10-09] MEDS ORDERED: MOM 30ML SUSPENSION UDC PO PRN (18:02)
[2022-10-09 20:57] VITALS: BP 100/50
[2022-10-09] MEDS: ENOXAPARIN 40MG/0.4ML SYRINGE (J1650 PER 10MG) SC SCH (21:29)
[2022-10-10] MEDS: ACETAMINOPHEN 325MG/10.15ML UDC GT PRN (02:35)
[2022-10-10] MEDS: HYDROCORTISONE 10 MG TAB PO SCH ×3 (06:19→21:19)
[2022-10-10] MEDS: CEFEPIME HCL 2 GM in D5W MINI-BAG PLUS 50 ML IV SCH ×2 (06:19→14:34)
[2022-10-10 06:20] VITALS: BP 117/74
[2022-10-10] MEDS: LEVALBUTEROL 1.25MG 0.5ML CONCENTRATE NEB NEB SCH ×4 (07:08→20:25)
[2022-10-10 08:46] LABS: BASO % 0.2 % (0.0-1.0); EOS % 0.3 % (0.0-3.0); HEMATOCRIT 40.1 % (42.0-52.0); HEMOGLOBIN 13.4 g/dl (13.5-17.5); LYMPH # 1.2 10^3/uL (1.5-5.0); LYMPH % 12.9 % (24.0-44.0); MEAN CORPUSCULAR HEMOGLOBIN 33.9 pg (27.0-33.0); MEAN CORPUSCULAR HGB CONC 33.4 g/dl (32.0-36.5); MEAN CORPUSCULAR VOLUME 101.5 fl (80.0-96.0); MONO % 10.7 % (2.0-8.0); NEUTROPHILS # 6.9 10^3/uL (1.5-8.5); NEUTROPHILS % 74.3 % (36.0-66.0); PLATELET COUNT, AUTOMATED 209 10^3/uL (150-450); RED BLOOD COUNT 3.95 10^6/uL (4.30-6.10); WHITE BLOOD COUNT 9.3 10^3/uL (4.0-10.0)
[2022-10-10 09:18] LABS: ALBUMIN 2.3 G/DL (3.2-5.2); ALKALINE PHOSPHATASE 89 U/L (46-116); ALT/SGPT 25 U/L (7.0-40); AST/SGOT 19 U/L (<34); BILIRUBIN,TOTAL 0.3 MG/DL (0.3-1.2); BLOOD UREA NITROGEN 39 MG/DL (9-23); CALCIUM LEVEL 7.9 MG/DL (8.5-10.1); CARBON DIOXIDE LEVEL 33 MMOL/L (20-31); CHLORIDE LEVEL 109 MMOL/L (98-107); CREATININE FOR GFR 0.41 MG/DL (0.70-1.30); GLOMERULAR FILTRATION RATE > 60.0 (>56); GLUCOSE, FASTING 116 MG/DL (60-100); POTASSIUM SERUM 3.6 MMOL/L (3.5-5.1); SODIUM LEVEL 145 MMOL/L (136-145); TOTAL PROTEIN 5.6 G/DL (5.7-8.2)
[2022-10-10] MEDS: LACOSAMIDE 10MG/ML 20ML VIAL (VIMPAT) IV SCH ×2 (10:20→21:18)
[2022-10-10] MEDS: POTASSIUM CHLORIDE 10% LIQ 20MEQ/15ML UDC PEG SCH ×2 (10:21→21:19)
[2022-10-10] MEDS: MIDODRINE 5 MG TAB PO SCH ×3 (10:21→17:46)
[2022-10-10] MEDS: FERROUS SULFATE 300MG/5ML UDC LIQUID PEG SCH (10:22)
[2022-10-10] MEDS: BISACODYL 10MG SUPP PR SCH (10:22)
[2022-10-10] MEDS: SENNA SYRUP 15 ML UDC PEG PRN (10:22)
[2022-10-10] MEDS: VALPROIC ACID 250MG/5ML SOL ORAL SYRINGE *DRAW UP EXACT DOSE PEG SCH ×2 (10:23→21:18)
[2022-10-10] MEDS: OMEPRAZOLE SUSPENSION 20MG 10ML ORAL SYRINGE GT SCH (10:23)
[2022-10-10 15:00] VITALS: BP 127/68
[2022-10-10] MEDS: ENOXAPARIN 40MG/0.4ML SYRINGE (J1650 PER 10MG) SC SCH (21:19)
[2022-10-10 21:27] VITALS: BP 124/69
[2022-10-11 06:10] VITALS: BP 120/64
[2022-10-11 06:25] LABS: BASO % 0.2 % (0.0-1.0); EOS # 0.1 10^3/uL (0.0-0.5); EOS % 1.1 % (0.0-3.0); HEMATOCRIT 38.5 % (42.0-52.0); LYMPH # 1.9 10^3/uL (1.5-5.0); LYMPH % 21.9 % (24.0-44.0); MEAN CORPUSCULAR HEMOGLOBIN 34.3 pg (27.0-33.0); MEAN CORPUSCULAR HGB CONC 33.8 g/dl (32.0-36.5); MEAN CORPUSCULAR VOLUME 101.6 fl (80.0-96.0); MONO % 11.5 % (2.0-8.0); NEUTROPHILS # 5.7 10^3/uL (1.5-8.5); NEUTROPHILS % 64.6 % (36.0-66.0); PLATELET COUNT, AUTOMATED 214 10^3/uL (150-450); RED BLOOD COUNT 3.79 10^6/uL (4.30-6.10); WHITE BLOOD COUNT 8.8 10^3/uL (4.0-10.0)
[2022-10-11 06:52] LABS: BLOOD UREA NITROGEN 33 MG/DL (9-23); CALCIUM LEVEL 7.4 MG/DL (8.5-10.1); CARBON DIOXIDE LEVEL 31 MMOL/L (20-31); CHLORIDE LEVEL 109 MMOL/L (98-107); CREATININE FOR GFR 0.39 MG/DL (0.70-1.30); GLOMERULAR FILTRATION RATE > 60.0 (>56); GLUCOSE, FASTING 103 MG/DL (60-100); POTASSIUM SERUM 3.6 MMOL/L (3.5-5.1); SODIUM LEVEL 146 MMOL/L (136-145)
[2022-10-11] MEDS: LEVALBUTEROL 1.25MG 0.5ML CONCENTRATE NEB NEB SCH ×4 (07:30→19:45)
[2022-10-11] MEDS: MIDODRINE 5 MG TAB PO SCH ×5 (08:00→17:45)
[2022-10-11] MEDS: VALPROIC ACID 250MG/5ML SOL ORAL SYRINGE *DRAW UP EXACT DOSE PEG SCH ×2 (09:00→21:09)
[2022-10-11] MEDS: FERROUS SULFATE 300MG/5ML UDC LIQUID PEG SCH (09:00)
[2022-10-11] MEDS: LACOSAMIDE 10MG/ML 20ML VIAL (VIMPAT) IV SCH ×2 (09:00→21:09)
[2022-10-11] MEDS: OMEPRAZOLE SUSPENSION 20MG 10ML ORAL SYRINGE GT SCH (09:00)
[2022-10-11] MEDS: POTASSIUM CHLORIDE 10% LIQ 20MEQ/15ML UDC PEG SCH ×2 (09:00→21:10)
[2022-10-11 14:00] VITALS: BP 110/62
[2022-10-11] MEDS: BISACODYL 10MG SUPP PR SCH (17:40)
[2022-10-11] MEDS: ENOXAPARIN 40MG/0.4ML SYRINGE (J1650 PER 10MG) SC SCH (21:10)
[2022-10-11 21:48] VITALS: BP 109/62
[2022-10-12 06:28] VITALS: BP 112/78
[2022-10-12 07:14] LABS: BASO % 0.2 % (0.0-1.0); EOS # 0.2 10^3/uL (0.0-0.5); EOS % 1.8 % (0.0-3.0); HEMATOCRIT 41.1 % (42.0-52.0); HEMOGLOBIN 13.6 g/dl (13.5-17.5); LYMPH # 1.7 10^3/uL (1.5-5.0); LYMPH % 18.6 % (24.0-44.0); MEAN CORPUSCULAR HEMOGLOBIN 33.7 pg (27.0-33.0); MEAN CORPUSCULAR HGB CONC 33.1 g/dl (32.0-36.5); MONO % 11.1 % (2.0-8.0); NEUTROPHILS # 6.1 10^3/uL (1.5-8.5); NEUTROPHILS % 67.7 % (36.0-66.0); PLATELET COUNT, AUTOMATED 219 10^3/uL (150-450); RED BLOOD COUNT 4.03 10^6/uL (4.30-6.10)
[2022-10-12 07:36] LABS: BLOOD UREA NITROGEN 35 MG/DL (9-23); CALCIUM LEVEL 7.7 MG/DL (8.5-10.1); CARBON DIOXIDE LEVEL 29 MMOL/L (20-31); CHLORIDE LEVEL 109 MMOL/L (98-107); GLOMERULAR FILTRATION RATE > 60.0 (>56); GLUCOSE, FASTING 97 MG/DL (60-100); POTASSIUM SERUM 3.9 MMOL/L (3.5-5.1); SODIUM LEVEL 142 MMOL/L (136-145)
[2022-10-12] MEDS: LEVALBUTEROL 1.25MG 0.5ML CONCENTRATE NEB NEB SCH ×4 (08:33→19:08)
[2022-10-12] MEDS ORDERED: VARIBAR PUDDING 40% w/v 230ML TUBE As Ordered ONE (10:22)
[2022-10-12] MEDS ORDERED: VARIBAR NECTAR 40% w/v 240ML SUSP BTL As Ordered ONE (10:22)
[2022-10-12] MEDS ORDERED: E-Z-PAQUE 96% w/w SUSP 176GM BTL As Ordered ONE (10:22)
[2022-10-12] MEDS: MIDODRINE 5 MG TAB PO SCH (10:59)
[2022-10-12] MEDS: BISACODYL 10MG SUPP PR SCH (10:59)
[2022-10-12] MEDS: FERROUS SULFATE 300MG/5ML UDC LIQUID PEG SCH (11:00)
[2022-10-12] MEDS: SENNA SYRUP 15 ML UDC PEG PRN (11:01)
[2022-10-12] MEDS: POTASSIUM CHLORIDE 10% LIQ 20MEQ/15ML UDC PEG SCH ×2 (11:01→21:21)
[2022-10-12] MEDS: OMEPRAZOLE SUSPENSION 20MG 10ML ORAL SYRINGE GT SCH (11:02)
[2022-10-12] MEDS: LACOSAMIDE 10MG/ML 20ML VIAL (VIMPAT) IV SCH ×2 (11:02→21:34)
[2022-10-12] MEDS: VALPROIC ACID 250MG/5ML SOL ORAL SYRINGE *DRAW UP EXACT DOSE PEG SCH ×2 (13:48→21:21)
[2022-10-12 14:00] VITALS: BP 102/57
[2022-10-12 20:00] VITALS: BP 102/67
[2022-10-12] MEDS: ENOXAPARIN 40MG/0.4ML SYRINGE (J1650 PER 10MG) SC SCH (21:21)
[2022-10-13 05:35] VITALS: BP 103/66
[2022-10-13] MEDS: LEVALBUTEROL 1.25MG 0.5ML CONCENTRATE NEB NEB SCH ×2 (07:18→11:36)
[2022-10-13 07:36] LABS: BASO % 0.2 % (0.0-1.0); EOS # 0.2 10^3/uL (0.0-0.5); EOS % 2.1 % (0.0-3.0); HEMATOCRIT 42.4 % (42.0-52.0); HEMOGLOBIN 14.1 g/dl (13.5-17.5); LYMPH # 1.5 10^3/uL (1.5-5.0); LYMPH % 17.6 % (24.0-44.0); MEAN CORPUSCULAR HEMOGLOBIN 33.8 pg (27.0-33.0); MEAN CORPUSCULAR HGB CONC 33.3 g/dl (32.0-36.5); MEAN CORPUSCULAR VOLUME 101.7 fl (80.0-96.0); MONO # 1.1 10^3/uL (0.0-0.8); NEUTROPHILS # 5.5 10^3/uL (1.5-8.5); NEUTROPHILS % 66.4 % (36.0-66.0); PLATELET COUNT, AUTOMATED 243 10^3/uL (150-450); RED BLOOD COUNT 4.17 10^6/uL (4.30-6.10); WHITE BLOOD COUNT 8.3 10^3/uL (4.0-10.0)
[2022-10-13 08:05] LABS: BLOOD UREA NITROGEN 38 MG/DL (9-23); CALCIUM LEVEL 8.5 MG/DL (8.5-10.1); CARBON DIOXIDE LEVEL 29 MMOL/L (20-31); CHLORIDE LEVEL 108 MMOL/L (98-107); GLOMERULAR FILTRATION RATE > 60.0 (>56); GLUCOSE, FASTING 105 MG/DL (60-100); POTASSIUM SERUM 4.2 MMOL/L (3.5-5.1); SODIUM LEVEL 143 MMOL/L (136-145)
[2022-10-13] MEDS: VALPROIC ACID 250MG/5ML SOL ORAL SYRINGE *DRAW UP EXACT DOSE PEG SCH (10:20)
[2022-10-13] MEDS: LACOSAMIDE 10MG/ML 20ML VIAL (VIMPAT) IV SCH (10:21)
[2022-10-13] MEDS: POTASSIUM CHLORIDE 10% LIQ 20MEQ/15ML UDC PEG SCH (10:21)
[2022-10-13] MEDS: FERROUS SULFATE 300MG/5ML UDC LIQUID PEG SCH (10:21)
[2022-10-13] MEDS: OMEPRAZOLE SUSPENSION 20MG 10ML ORAL SYRINGE GT SCH (10:23)
[2022-10-13] MEDS: BISACODYL 10MG SUPP PR SCH (10:23)
== END 2022-10-13 12:59 | disposition home or self-care (01) | DRG 871 ==
LOC: EDBD 09:55 → M ED 09:55 → M ED INP 12:23 → ENRESERV 13:57 → M PCU 14:54 → M MSPAV 10-06 15:55
PROVIDERS: ADMIT Internal Medicine; ATTEND Internal Medicine
DX: A41.9 Sepsis, unspecified organism (principal); J96.01 Acute respiratory failure with hypoxia; J15.1 Pneumonia due to Pseudomonas; E27.40 Unspecified adrenocortical insufficiency; I69.354 Hemiplegia and hemiparesis following cerebral infarction affecting left non-dominant side; M87.9 Osteonecrosis, unspecified; D50.9 Iron deficiency anemia, unspecified; E86.0 Dehydration; K21.9 Gastro-esophageal reflux disease without esophagitis; G40.909 Epilepsy, unspecified, not intractable, without status epilepticus; Z87.820 Personal history of traumatic brain injury; R41.89 Other symptoms and signs involving cognitive functions and awareness; E87.6 Hypokalemia; K59.00 Constipation, unspecified; Z88.0 Allergy status to penicillin; Z88.8 Allergy status to other drugs, medicaments and biological substances; Z91.018 Allergy to other foods; Z79.899 Other long term (current) drug therapy; Z79.82 Long term (current) use of aspirin; Z93.1 Gastrostomy status

== ENCOUNTER 2022-12-22 10:18 | Emergency (ER) | payer MEDICARE, MEDICAID ==
[~2022-12-22] VITALS: Ht 172.7 cm; Wt 62.3 kg
[~2022-12-22 10:18] MED LIST changes: +DOXY100C3 PEG; +FERR325T18 PEG; +IPRA0.00 INH; +LACO10SO10 PEG; +OMEP40CA5 PEG; +POTA20EL PEG; +SENN15UDC PEG; +[UNRECOGNIZED DRUG - CODE] PEG
[2022-12-22 11:50] LABS: VENOUS BASE EXCESS -3.9 (-2.0-2.0); VENOUS HCO3 22.3 MMOL/L (23.0-27.0); VENOUS O2 SATURATION 90.9 % (60.0-80.0); VENOUS PARTIAL PRESSURE CO2 44.3 mmHg (38.0-50.0); VENOUS PARTIAL PRESSURE O2 63.4 mmHg (30.0-50.0); VENOUS PH 7.319 UNITS (7.330-7.430); VENOUS STANDARD HCO3 21.1 MMOL/L; VENOUS TOTAL CO2 23.6 MMOL/L (24.0-28.0)
[2022-12-22 12:05] LABS: BASO % 0.5 % (0.0-1.0); EOS # 0.2 10^3/uL (0.0-0.5); EOS % 4.6 % (0.0-3.0); HEMATOCRIT 43.3 % (42.0-52.0); HEMOGLOBIN 14.9 g/dl (13.5-17.5); LYMPH # 1.2 10^3/uL (1.5-5.0); MEAN CORPUSCULAR HEMOGLOBIN 33.9 pg (27.0-33.0); MEAN CORPUSCULAR HGB CONC 34.4 g/dl (32.0-36.5); MEAN CORPUSCULAR VOLUME 98.6 fl (80.0-96.0); MONO # 0.6 10^3/uL (0.0-0.8); MONO % 14.7 % (2.0-8.0); NEUTROPHILS # 2.2 10^3/uL (1.5-8.5); PLATELET COUNT, AUTOMATED 101 10^3/uL (150-450); RED BLOOD COUNT 4.39 10^6/uL (4.30-6.10); WHITE BLOOD COUNT 4.2 10^3/uL (4.0-10.0)
[2022-12-22 12:27] LABS: CK-MB VALUE MASS 3.2 NG/ML (<3.6)
[2022-12-22 12:29] LABS: ALBUMIN 3.4 G/DL (3.2-5.2); ALKALINE PHOSPHATASE 102 U/L (46-116); ALT/SGPT 55 U/L (7.0-40); AST/SGOT 38 U/L (<34); BILIRUBIN,DIRECT 0.1 MG/DL (<0.4); BILIRUBIN,TOTAL 0.4 MG/DL (0.3-1.2); BLOOD UREA NITROGEN 23 MG/DL (9-23); CALCIUM LEVEL 8.6 MG/DL (8.5-10.1); CARBON DIOXIDE LEVEL 28 MMOL/L (20-31); CHLORIDE LEVEL 106 MMOL/L (98-107); CPK CREATINE PHOSPHOKINASE 87 U/L (46-171); CREATININE FOR GFR 0.51 MG/DL (0.70-1.30); GLOMERULAR FILTRATION RATE > 60.0 (>56); GLUCOSE, FASTING 71 MG/DL (60-100); MB/CK RELATIVE INDEX 3.67 (< OR =4); POTASSIUM SERUM 5.7 MMOL/L (3.5-5.1); SODIUM LEVEL 138 MMOL/L (136-145); TOTAL PROTEIN 6.8 G/DL (5.7-8.2)
[2022-12-22 12:31] LABS: THYROID STIMULATING HORMONE 8.486 uIU/ML (0.55-4.78)
[2022-12-22 14:42] LABS: FREE T4 1.08 NG/DL (0.89-1.76)
[2022-12-22 15:13] VITALS: BP 109/55
== END 2022-12-22 15:16 | disposition home or self-care (01) ==
LOC: M ED 10:18
DX: R53.81 Other malaise (principal); R53.83 Other fatigue; I69.398 Other sequelae of cerebral infarction; Z79.82 Long term (current) use of aspirin; Z79.899 Other long term (current) drug therapy; Z88.0 Allergy status to penicillin; Z88.1 Allergy status to other antibiotic agents; Z88.8 Allergy status to other drugs, medicaments and biological substances; Z91.018 Allergy to other foods

== ENCOUNTER 2022-12-25 09:17 | Emergency (ER) | payer MEDICARE, MEDICAID ==
[~2022-12-25] VITALS: Ht 172.7 cm; Wt 60.9 kg
[2022-12-25] MEDS ORDERED: CEFD300C PO (11:12)
[2022-12-25] MEDS ORDERED: DOXY100C81 PO (11:12)
[2022-12-25 12:00] VITALS: BP 111/60
== END 2022-12-25 11:49 | disposition home or self-care (01) ==
LOC: M ED 09:17
DX: R05.9 Cough, unspecified (principal); Z93.1 Gastrostomy status; Z86.19 Personal history of other infectious and parasitic diseases; Z86.73 Personal history of transient ischemic attack (TIA), and cerebral infarction without residual deficits; G40.909 Epilepsy, unspecified, not intractable, without status epilepticus; Z79.82 Long term (current) use of aspirin; Z79.899 Other long term (current) drug therapy; Z88.0 Allergy status to penicillin; Z88.1 Allergy status to other antibiotic agents; Z88.8 Allergy status to other drugs, medicaments and biological substances; Z91.018 Allergy to other foods

== ENCOUNTER → 2023-05-05 | Outpatient (CLI) | payer MEDICARE, MEDICAID ==
[~2023-05-05] MED LIST changes: +CEFD300C PO; -CEFD300C41 PO; +CEFD300C42 PO; -DOXY100C81 PO; +DOXY100C82 PO
[2023-05-05 16:50] LABS: BASO % 0.4 % (0.0-1.0); EOS # 0.1 10^3/uL (0.0-0.5); EOS % 1.6 % (0.0-3.0); HEMATOCRIT 53.7 % (42.0-52.0); HEMOGLOBIN 18.2 g/dl (13.5-17.5); LYMPH # 1.6 10^3/uL (1.5-5.0); MEAN CORPUSCULAR HGB CONC 33.9 g/dl (32.0-36.5); MEAN CORPUSCULAR VOLUME 97.5 fl (80.0-96.0); MONO # 0.9 10^3/uL (0.0-0.8); MONO % 11.7 % (2.0-8.0); NEUTROPHILS # 4.8 10^3/uL (1.5-8.5); NEUTROPHILS % 65.2 % (36.0-66.0); PLATELET COUNT, AUTOMATED 179 10^3/uL (150-450); RED BLOOD COUNT 5.51 10^6/uL (4.30-6.10); WHITE BLOOD COUNT 7.4 10^3/uL (4.0-10.0)
[2023-05-05 17:14] LABS: VALPROIC ACID (DEPAKOTE) 60.8 UG/ML (50.0-100.0)
[2023-05-05 17:16] LABS: ALBUMIN 3.8 G/DL (3.2-5.2); ALKALINE PHOSPHATASE 98 U/L (46-116); ALT/SGPT 89 U/L (7.0-40); AST/SGOT 51 U/L (<34); BILIRUBIN,TOTAL 0.5 MG/DL (0.3-1.2); BLOOD UREA NITROGEN 33 MG/DL (9-23); CALCIUM LEVEL 9.4 MG/DL (8.5-10.1); CARBON DIOXIDE LEVEL 26 MMOL/L (20-31); CHLORIDE LEVEL 105 MMOL/L (98-107); CREATININE FOR GFR 0.73 MG/DL (0.70-1.30); GLOMERULAR FILTRATION RATE > 60.0 (>56); GLUCOSE, FASTING 94 MG/DL (60-100); POTASSIUM SERUM 4.9 MMOL/L (3.5-5.1); SODIUM LEVEL 139 MMOL/L (136-145); TOTAL PROTEIN 7.8 G/DL (5.7-8.2)
== END ==
LOC: M LAB 15:46
PROVIDERS: ATTEND Family Medicine
DX: Z79.899 Other long term (current) drug therapy (principal)

== ENCOUNTER → 2023-05-05 | Outpatient (CLI) | payer MEDICARE, MEDICAID ==
[2023-05-05 16:48] LABS: BASO % 0.3 % (0.0-1.0); EOS # 0.1 10^3/uL (0.0-0.5); EOS % 1.5 % (0.0-3.0); HEMATOCRIT 52.2 % (42.0-52.0); LYMPH # 1.5 10^3/uL (1.5-5.0); LYMPH % 19.8 % (24.0-44.0); MEAN CORPUSCULAR HEMOGLOBIN 33.6 pg (27.0-33.0); MEAN CORPUSCULAR HGB CONC 34.5 g/dl (32.0-36.5); MEAN CORPUSCULAR VOLUME 97.4 fl (80.0-96.0); MONO % 12.6 % (2.0-8.0); NEUTROPHILS % 65.7 % (36.0-66.0); PLATELET COUNT, AUTOMATED 197 10^3/uL (150-450); RED BLOOD COUNT 5.36 10^6/uL (4.30-6.10); WHITE BLOOD COUNT 7.5 10^3/uL (4.0-10.0)
[2023-05-05 17:18] LABS: ALBUMIN 3.8 G/DL (3.2-5.2); ALKALINE PHOSPHATASE 98 U/L (46-116); ALT/SGPT 89 U/L (7.0-40); AST/SGOT 51 U/L (<34); BILIRUBIN,TOTAL 0.5 MG/DL (0.3-1.2); BLOOD UREA NITROGEN 31 MG/DL (9-23); CALCIUM LEVEL 9.5 MG/DL (8.5-10.1); CARBON DIOXIDE LEVEL 27 MMOL/L (20-31); CHLORIDE LEVEL 105 MMOL/L (98-107); CREATININE FOR GFR 0.72 MG/DL (0.70-1.30); GLOMERULAR FILTRATION RATE > 60.0 (>56); GLUCOSE, FASTING 95 MG/DL (60-100); POTASSIUM SERUM 4.9 MMOL/L (3.5-5.1); SODIUM LEVEL 139 MMOL/L (136-145); TOTAL PROTEIN 7.9 G/DL (5.7-8.2)
== END ==
LOC: M LAB 15:43
PROVIDERS: ATTEND Psychiatry & Neurology Neurology
DX: R56.9 Unspecified convulsions (principal)

== ENCOUNTER 2023-08-31 21:17 | Inpatient (IN) | payer MEDICARE, MEDICAID ==
[~2023-08-31] VITALS: Ht 172.7 cm; Wt 72.7 kg
[~2023-08-31 21:17] MED LIST changes: +CEFD1CAP9 PO; -CEFD300C42 PO; +FERR325T18 GT; -FERR325T18 PEG; +LACO10SO10 GT; -LACO10SO10 PEG; +MIRA3350 GT; -MIRA3350 PEG; +OMEP40CA5 GT; -OMEP40CA5 PEG; +ONDA-83 GT; -ONDA-83 PEG; -POTA20EL PEG; -POTA20EL PO; +POTA20LI16 GT; +POTA20LI16 PO; +VALP250S GT
[2023-08-31] MEDS: ACETAMINOPHEN *IV* 1,000 MG in IV 1 EA IV ONE (22:10)
[2023-08-31 23:06] LABS: BASO % 0.2 % (0.0-1.0); EOS % 0.1 % (0.0-3.0); HEMATOCRIT 55.8 % (42.0-52.0); HEMOGLOBIN 18.7 g/dl (13.5-17.5); LYMPH % 9.5 % (24.0-44.0); MEAN CORPUSCULAR HEMOGLOBIN 33.3 pg (27.0-33.0); MEAN CORPUSCULAR HGB CONC 33.5 g/dl (32.0-36.5); MEAN CORPUSCULAR VOLUME 99.3 fl (80.0-96.0); MONO % 19.7 % (2.0-8.0); NEUTROPHILS # 14.8 10^3/uL (1.5-8.5); NEUTROPHILS % 70.1 % (36.0-66.0); PLATELET COUNT, AUTOMATED 170 10^3/uL (150-450); RED BLOOD COUNT 5.62 10^6/uL (4.30-6.10); WHITE BLOOD COUNT 21.1 10^3/uL (4.0-10.0)
[2023-08-31 23:21] LABS: AMYLASE 24 U/L (30-118)
[2023-08-31 23:22] LABS: ALBUMIN 3.1 G/DL (3.2-5.2); ALKALINE PHOSPHATASE 94 U/L (46-116); ALT/SGPT 34 U/L (7.0-40); AST/SGOT 20 U/L (<34); BILIRUBIN,DIRECT 0.4 MG/DL (<0.4); BLOOD UREA NITROGEN 27 MG/DL (9-23); CALCIUM LEVEL 8.5 MG/DL (8.5-10.1); CARBON DIOXIDE LEVEL 26 MMOL/L (20-31); CHLORIDE LEVEL 111 MMOL/L (98-107); CREATININE FOR GFR 0.66 MG/DL (0.70-1.30); GLOMERULAR FILTRATION RATE > 60.0 (>56); GLUCOSE, FASTING 145 MG/DL (60-100); POTASSIUM SERUM 4.6 MMOL/L (3.5-5.1); SODIUM LEVEL 144 MMOL/L (136-145); TOTAL PROTEIN 7.2 G/DL (5.7-8.2)
[2023-08-31 23:29] LABS: PROCALCITONIN 0.36 ng/ml
[2023-08-31 23:33] LABS: MONO # 4.2 10^3/uL (0.0-0.8)
[2023-08-31] MEDS: NS 1,000 ML IV ONE (23:45)
[2023-08-31 23:59] LABS: VENOUS BASE EXCESS -0.8 (-2.0-2.0); VENOUS O2 SATURATION 91.5 % (60.0-80.0); VENOUS PARTIAL PRESSURE CO2 40.2 mmHg (38.0-50.0); VENOUS PARTIAL PRESSURE O2 58.7 mmHg (30.0-50.0); VENOUS PH 7.393 UNITS (7.330-7.430); VENOUS STANDARD HCO3 23.6 MMOL/L; VENOUS TOTAL CO2 25.2 MMOL/L (24.0-28.0)
[2023-09-01] VITALS (8 sets, daily range): BP systolic 92–110; BP diastolic 56–76; TEMP 98.8–102.1; O2SAT 92–96
[2023-09-01 00:19] LABS: INR 1.34; PARTIAL THROMBOPLASTIN TIME 30.7 SECONDS (24.8-34.2); PROTHROMBIN TIME 16.1 SECONDS (12.5-14.5)
[2023-09-01 00:39] LABS: APPEARANCE, URINE HAZY (CLEAR); BACTERIA, URINE AUTO NEGATIVE (NEGATIVE); BILIRUBIN, URINE AUTO NEGATIVE (NEGATIVE); BLOOD, URINE BLOOD NEGATIVE (NEGATIVE); COLOR, URINE AMBER (YELLOW); GLUCOSE, URINE (UA) AUTO NEGATIVE (NEGATIVE); KETONE, URINE AUTO TRACE mg/dL (NEGATIVE); LEUKOCYTE ESTERASE, URINE AUTO NEGATIVE (NEGATIVE); MUCUS, URINE SMALL (NEGATIVE); NITRITE, URINE AUTO NEGATIVE (NEGATIVE); PROTEIN, URINE AUTO 2+ mg/dL (NEGATIVE); RBC, URINE AUTO 116 /HPF (0-3); SPECIFIC GRAVITY URINE AUTO 1.032 (1.002-1.035); SQUAMOUS EPITHELIAL CELL UR AU 0 /HPF (0-6); WBC, URINE AUTO 2 /HPF (0-3)
[2023-09-01] MEDS ORDERED: VITA500030 GT (01:29)
[2023-09-01] MEDS ORDERED: SENN8.6T28 GT (01:29)
[2023-09-01] MEDS ORDERED: MULT-40 GT (01:29)
[2023-09-01] MEDS ORDERED: FLOM0.4C39 GT (01:29)
[2023-09-01] MEDS ORDERED: ASPI-655 GT (01:29)
[2023-09-01] MEDS ORDERED: HOME MED LIST COMPLETE! XX SCH (01:30)
[2023-09-01] MEDS: CEFEPIME HCL 2 GM in D5W MINI-BAG PLUS 50 ML IV ONE (01:44)
[2023-09-01] MEDS: NS 1,000 ML IV ONE ×2 (02:23→14:40)
[2023-09-01] MEDS: LR 1,000 ML IV SCH (03:15)
[2023-09-01] MEDS ORDERED: ONDANSETRON 4MG 2ML VIAL IV PRN (03:15)
[2023-09-01] MEDS: FIDAXOMICIN 200 MG TAB (DIFICID) PO ONE (04:15)
[2023-09-01] MEDS: SODIUM CHLORIDE 0.9% 1000ML IV SCH (04:16)
[2023-09-01 06:19] LABS: BASO % 0.1 % (0.0-1.0); EOS % 0.1 % (0.0-3.0); HEMATOCRIT 51.6 % (42.0-52.0); HEMOGLOBIN 17.2 g/dl (13.5-17.5); LYMPH # 0.8 10^3/uL (1.5-5.0); LYMPH % 5.9 % (24.0-44.0); MEAN CORPUSCULAR HEMOGLOBIN 33.3 pg (27.0-33.0); MEAN CORPUSCULAR HGB CONC 33.3 g/dl (32.0-36.5); MONO # 1.6 10^3/uL (0.0-0.8); MONO % 11.7 % (2.0-8.0); NEUTROPHILS # 11.4 10^3/uL (1.5-8.5); NEUTROPHILS % 81.6 % (36.0-66.0); PLATELET COUNT, AUTOMATED 116 10^3/uL (150-450); RED BLOOD COUNT 5.16 10^6/uL (4.30-6.10); WHITE BLOOD COUNT 13.9 10^3/uL (4.0-10.0)
[2023-09-01] MEDS: ACETAMINOPHEN *IV* 1,000 MG in IV 1 EA IV ONE (06:42)
[2023-09-01 07:01] LABS: ALBUMIN 2.7 G/DL (3.2-5.2); ALKALINE PHOSPHATASE 82 U/L (46-116); ALT/SGPT 31 U/L (7.0-40); AST/SGOT 18 U/L (<34); BILIRUBIN,TOTAL 1.5 MG/DL (0.3-1.2); BLOOD UREA NITROGEN 29 MG/DL (9-23); CALCIUM LEVEL 8.1 MG/DL (8.5-10.1); CARBON DIOXIDE LEVEL 25 MMOL/L (20-31); CHLORIDE LEVEL 112 MMOL/L (98-107); CREATININE FOR GFR 0.58 MG/DL (0.70-1.30); GLOMERULAR FILTRATION RATE > 60.0 (>56); GLUCOSE, FASTING 93 MG/DL (60-100); MAGNESIUM LEVEL 1.8 MG/DL (1.8-2.4); SODIUM LEVEL 145 MMOL/L (136-145); TOTAL PROTEIN 6.5 G/DL (5.7-8.2)
[2023-09-01] MEDS: LACOSAMIDE 50 MG TAB (VIMPAT) PO SCH (09:41)
[2023-09-01] MEDS: TAMSULOSIN 0.4 MG CAP PO SCH (09:42)
[2023-09-01] MEDS: VALPROIC ACID 500MG/10ML SOL ORAL SYRINGE GT SCH (09:42)
[2023-09-01] MEDS: ENOXAPARIN 40MG/0.4ML SYRINGE (J1650 PER 10MG) SC SCH (09:43)
[2023-09-01] MEDS ORDERED: GLUCOSE 4GM CHEW TABLET PO PRN (14:25)
[2023-09-01] MEDS ORDERED: DEXTROSE 50% 50ML SYRINGE IV PRN (14:25)
[2023-09-01] MEDS ORDERED: GLUCAGON INJ 1MG VIAL SC PRN (14:25)
[2023-09-01] MEDS: KETOROLAC 30 MG/ML 1ML VIAL IV ONE (14:40)
[2023-09-01] MEDS: D5W/0.45% SODIUM CHLORIDE 1,000 ML IV SCH (16:25)
[2023-09-01] MEDS: FIDAXOMICIN 200 MG TAB (DIFICID) PO SCH (18:26)
[2023-09-01] MEDS: HYDROMORPHONE HCL 0.5 MG/ 0.5 ML SYRINGE IV PRN (18:31)
[2023-09-02] MEDS: KETOROLAC 30 MG/ML 1ML VIAL IV PRN (04:44)
[2023-09-02 06:00] VITALS: BP 117/60; TEMP 99.6; O2SAT 95
[2023-09-02 08:42] LABS: ALBUMIN 2.3 G/DL (3.2-5.2); ALKALINE PHOSPHATASE 73 U/L (46-116); ALT/SGPT 30 U/L (7.0-40); AST/SGOT 25 U/L (<34); BILIRUBIN,TOTAL 1.1 MG/DL (0.3-1.2); BLOOD UREA NITROGEN 31 MG/DL (9-23); CALCIUM LEVEL 7.7 MG/DL (8.5-10.1); CARBON DIOXIDE LEVEL 25 MMOL/L (20-31); CHLORIDE LEVEL 111 MMOL/L (98-107); CREATININE FOR GFR 0.56 MG/DL (0.70-1.30); GLOMERULAR FILTRATION RATE > 60.0 (>56); GLUCOSE, FASTING 89 MG/DL (60-100); MAGNESIUM LEVEL 1.8 MG/DL (1.8-2.4); POTASSIUM SERUM 3.4 MMOL/L (3.5-5.1); SODIUM LEVEL 143 MMOL/L (136-145); TOTAL PROTEIN 5.7 G/DL (5.7-8.2)
[2023-09-02] MEDS: cefTRIAXone SOD 2 GM in D5W MINI-BAG PLUS 50 ML IV SCH (09:08)
[2023-09-02] MEDS: metroNIDAZOLE 500 MG in IV 1 EA IV SCH (09:55)
[2023-09-02] MEDS: LORazepam 2 MG/ML 1ML VIAL IV ONE (10:32)
[2023-09-02] MEDS: NS 1,000 ML IV ONE (11:25)
[2023-09-02] MEDS: MAG SULF 1GM/100ML (MAG RUN) 1 GM in IV 1 EA IV ONE (11:42)
[2023-09-02 11:43] LABS: BASO % 0.1 % (0.0-1.0); EOS # 0.2 10^3/uL (0.0-0.5); EOS % 1.7 % (0.0-3.0); HEMATOCRIT 40.9 % (42.0-52.0); LYMPH # 0.7 10^3/uL (1.5-5.0); LYMPH % 7.4 % (24.0-44.0); MEAN CORPUSCULAR HEMOGLOBIN 33.6 pg (27.0-33.0); MEAN CORPUSCULAR HGB CONC 33.7 g/dl (32.0-36.5); MEAN CORPUSCULAR VOLUME 99.5 fl (80.0-96.0); MONO # 1.4 10^3/uL (0.0-0.8); MONO % 15.6 % (2.0-8.0); NEUTROPHILS # 6.6 10^3/uL (1.5-8.5); NEUTROPHILS % 74.7 % (36.0-66.0); RED BLOOD COUNT 4.11 10^6/uL (4.30-6.10); WHITE BLOOD COUNT 8.8 10^3/uL (4.0-10.0)
[2023-09-02 12:05] LABS: HEMOGLOBIN 13.8 g/dl (13.5-17.5)
[2023-09-02] MEDS: DEXTROSE 50% 50ML SYRINGE IV STA (12:23)
[2023-09-02 12:29] LABS: PROCALCITONIN 1.22 ng/ml
[2023-09-02 12:40] VITALS: BP 91/57; O2SAT 94
[2023-09-02 13:25] VITALS: BP 114/79
[2023-09-02] MEDS ORDERED: LIDOCAINE 1% MDV 20ML VIAL As Ordered ONE (14:11)
[2023-09-02] MEDS: KCL 40MEQ IN D5/0.45NS 1000ML 1,000 ML IV SCH (15:05)
[2023-09-02 15:06] VITALS: BP 102/79; TEMP 97.9; O2SAT 95
[2023-09-02 15:56] VITALS: TEMP 98.1
[2023-09-02 17:45] LABS: BLOOD UREA NITROGEN 27 MG/DL (9-23); CALCIUM LEVEL 7.1 MG/DL (8.5-10.1); CARBON DIOXIDE LEVEL 24 MMOL/L (20-31); CHLORIDE LEVEL 114 MMOL/L (98-107); CREATININE FOR GFR 0.48 MG/DL (0.70-1.30); GLOMERULAR FILTRATION RATE > 60.0 (>56); GLUCOSE, FASTING 88 MG/DL (60-100); MAGNESIUM LEVEL 1.8 MG/DL (1.8-2.4); SODIUM LEVEL 143 MMOL/L (136-145)
[2023-09-02 20:24] VITALS: BP 114/62; TEMP 98.2; O2SAT 95
[2023-09-03 05:17] VITALS: BP 118/81; TEMP 98.4; O2SAT 93
[2023-09-03 07:36] LABS: ALBUMIN 1.8 G/DL (3.2-5.2); ALKALINE PHOSPHATASE 70 U/L (46-116); ALT/SGPT 25 U/L (7.0-40); AST/SGOT 22 U/L (<34); BILIRUBIN,TOTAL 0.7 MG/DL (0.3-1.2); BLOOD UREA NITROGEN 27 MG/DL (9-23); CALCIUM LEVEL 7.5 MG/DL (8.5-10.1); CARBON DIOXIDE LEVEL 23 MMOL/L (20-31); CHLORIDE LEVEL 114 MMOL/L (98-107); GLOMERULAR FILTRATION RATE > 60.0 (>56); GLUCOSE, FASTING 77 MG/DL (60-100); MAGNESIUM LEVEL 1.7 MG/DL (1.8-2.4); POTASSIUM SERUM 3.3 MMOL/L (3.5-5.1); SODIUM LEVEL 144 MMOL/L (136-145); TOTAL PROTEIN 4.8 G/DL (5.7-8.2)
[2023-09-03 14:00] VITALS: BP 118/77; TEMP 97.9; O2SAT 95
[2023-09-03] MEDS: POTASSIUM CHLORIDE 10% LIQ 20MEQ/15ML UDC PEG SCH (14:26)
[2023-09-03] MEDS: MAG SULF 1GM/100ML (MAG RUN) 1 GM in IV 1 EA IV ONE (14:26)
[2023-09-03 21:44] VITALS: BP 118/75; TEMP 98.1; O2SAT 94
[2023-09-04] VITALS (7 sets, daily range): BP systolic 92–119; BP diastolic 57–76; TEMP 97.8–98.8; O2SAT 94–96
[2023-09-04 06:30] LABS: ALBUMIN 1.8 G/DL (3.2-5.2); ALKALINE PHOSPHATASE 90 U/L (46-116); ALT/SGPT 24 U/L (7.0-40); AST/SGOT 22 U/L (<34); BILIRUBIN,TOTAL 0.3 MG/DL (0.3-1.2); BLOOD UREA NITROGEN 25 MG/DL (9-23); CALCIUM LEVEL 7.4 MG/DL (8.5-10.1); CARBON DIOXIDE LEVEL 25 MMOL/L (20-31); CHLORIDE LEVEL 113 MMOL/L (98-107); CREATININE FOR GFR 0.53 MG/DL (0.70-1.30); GLOMERULAR FILTRATION RATE > 60.0 (>56); GLUCOSE, FASTING 107 MG/DL (60-100); MAGNESIUM LEVEL 1.9 MG/DL (1.8-2.4); POTASSIUM SERUM 3.2 MMOL/L (3.5-5.1); SODIUM LEVEL 144 MMOL/L (136-145); TOTAL PROTEIN 4.9 G/DL (5.7-8.2)
[2023-09-04] MEDS: LR 1,000 ML IV ONE (08:18)
[2023-09-04] MEDS: PERCOCET 5MG/325MG TAB PEG ONE (08:19)
[2023-09-04] MEDS: KETOROLAC 30 MG/ML 1ML VIAL IV ONE (08:19)
[2023-09-04] MEDS: LR 1,000 ML IV SCH (10:43)
[2023-09-04] MEDS: PERCOCET 5MG/325MG TAB PEG PRN (14:20)
[2023-09-04 15:49] LABS: BASO % 0.3 % (0.0-1.0); EOS # 0.3 10^3/uL (0.0-0.5); EOS % 4.9 % (0.0-3.0); IONIZED CALCIUM 4.3 MG/DL (4.5-5.3); LYMPH # 1.1 10^3/uL (1.5-5.0); LYMPH % 15.8 % (24.0-44.0); MEAN CORPUSCULAR HEMOGLOBIN 33.7 pg (27.0-33.0); MEAN CORPUSCULAR HGB CONC 35.1 g/dl (32.0-36.5); MEAN CORPUSCULAR VOLUME 95.9 fl (80.0-96.0); MONO # 1.2 10^3/uL (0.0-0.8); MONO % 18.5 % (2.0-8.0); NEUTROPHILS % 59.2 % (36.0-66.0); PLATELET COUNT, AUTOMATED 144 10^3/uL (150-450); RED BLOOD COUNT 3.86 10^6/uL (4.30-6.10); WHITE BLOOD COUNT 6.7 10^3/uL (4.0-10.0)
[2023-09-04 16:13] LABS: MAGNESIUM LEVEL 1.8 MG/DL (1.8-2.4)
[2023-09-04 16:14] LABS: BLOOD UREA NITROGEN 26 MG/DL (9-23); CALCIUM LEVEL 7.4 MG/DL (8.5-10.1); CARBON DIOXIDE LEVEL 25 MMOL/L (20-31); CHLORIDE LEVEL 114 MMOL/L (98-107); CREATININE FOR GFR 0.52 MG/DL (0.70-1.30); GLOMERULAR FILTRATION RATE > 60.0 (>56); GLUCOSE, FASTING 88 MG/DL (60-100); POTASSIUM SERUM 3.7 MMOL/L (3.5-5.1); SODIUM LEVEL 142 MMOL/L (136-145)
[2023-09-04] MEDS: POTASSIUM CHLORIDE 10% LIQ 20MEQ/15ML UDC PEG SCH (17:04)
[2023-09-04] MEDS: FUROSEMIDE 20MG/2ML VIAL IV ONE (17:05)
[2023-09-04] MEDS: CALCIUM GLUCONATE 1,000 MG in D5W MINI-BAG PLUS 100 ML IV ONE (17:05)
[2023-09-04] MEDS ORDERED: IPRATROPIUM 0.5MG/ALBUTEROL 2.5MG INH SOL UD 3ML (DUONEB) NEB PRN (17:20)
[2023-09-04] MEDS: IPRATROPIUM 0.5MG/ALBUTEROL 2.5MG INH SOL UD 3ML (DUONEB) NEB ONE (17:42)
[2023-09-04] MEDS: metOLazone 5 MG TAB PEG ONE (18:00)
[2023-09-04] MEDS: MAG SULF 1GM/100ML (MAG RUN) 1 GM in IV 1 EA IV ONE (18:00)
[2023-09-04] MEDS: FUROSEMIDE 100MG/10ML VIAL IV ONE (18:13)
[2023-09-04] MEDS: IPRATROPIUM 0.5MG/ALBUTEROL 2.5MG INH SOL UD 3ML (DUONEB) NEB SCH (20:23)
[2023-09-04 22:13] LABS: ABG BASE EXCESS -1.4 (-2.0-2.0); ABG HCO3 24.7 MMOL/L (22.0-26.0); ABG O2 SATURATION 96.5 % (95.0-99.0); ABG PARTIAL PRESSURE CO2 46.8 mmHg (35.0-45.0); ABG PARTIAL PRESSURE O2 82.4 mmHg (75.0-100.0); ABG STANDARD HCO3 23.2 MMOL/L. (22.0-26.0); ABG TOTAL CO2 26.1 MMOL/L (22.0-29.0)
[2023-09-04] MEDS: LIDOCAINE 5% (LIDODERM) PATCH TD PRN (22:39)
[2023-09-04 22:40] LABS: BASO % 0.3 % (0.0-1.0); EOS # 0.3 10^3/uL (0.0-0.5); HEMATOCRIT 40.6 % (42.0-52.0); HEMOGLOBIN 14.3 g/dl (13.5-17.5); LYMPH # 0.9 10^3/uL (1.5-5.0); LYMPH % 13.4 % (24.0-44.0); MEAN CORPUSCULAR HEMOGLOBIN 34.2 pg (27.0-33.0); MEAN CORPUSCULAR HGB CONC 35.2 g/dl (32.0-36.5); MEAN CORPUSCULAR VOLUME 97.1 fl (80.0-96.0); MONO # 0.8 10^3/uL (0.0-0.8); MONO % 11.7 % (2.0-8.0); NEUTROPHILS # 4.5 10^3/uL (1.5-8.5); NEUTROPHILS % 68.5 % (36.0-66.0); PLATELET COUNT, AUTOMATED 123 10^3/uL (150-450); RED BLOOD COUNT 4.18 10^6/uL (4.30-6.10); WHITE BLOOD COUNT 6.6 10^3/uL (4.0-10.0)
[2023-09-04] MEDS: ACETAMINOPHEN *IV* 1,000 MG in IV 1 EA IV ONE (22:40)
[2023-09-04 22:54] LABS: BLOOD UREA NITROGEN 22 MG/DL (9-23); CARBON DIOXIDE LEVEL 26 MMOL/L (20-31); CHLORIDE LEVEL 110 MMOL/L (98-107); CREATININE FOR GFR 0.66 MG/DL (0.70-1.30); GLOMERULAR FILTRATION RATE > 60.0 (>56); GLUCOSE, FASTING 122 MG/DL (60-100); SODIUM LEVEL 141 MMOL/L (136-145)
[2023-09-05] VITALS (16 sets, daily range): BP systolic 96–146; BP diastolic 57–85; TEMP 97–98; O2SAT 93–98
[2023-09-05] MEDS: MIDODRINE 5 MG TAB PO STA (05:52)
[2023-09-05 05:59] LABS: ABG BASE EXCESS -1.8 (-2.0-2.0); ABG HCO3 23.1 MMOL/L (22.0-26.0); ABG O2 SATURATION 97.8 % (95.0-99.0); ABG PARTIAL PRESSURE CO2 40.3 mmHg (35.0-45.0); ABG PARTIAL PRESSURE O2 96.5 mmHg (75.0-100.0); ABG STANDARD HCO3 22.9 MMOL/L. (22.0-26.0); ABG TOTAL CO2 24.4 MMOL/L (22.0-29.0); ABG pH (ARTERIAL) 7.377 UNITS (7.350-7.450)
[2023-09-05 06:29] LABS: IONIZED CALCIUM 4.2 MG/DL (4.5-5.3)
[2023-09-05] MEDS: ACETAMINOPHEN TAB 650MG DOSE (2X325MG) PO ONE (06:31)
[2023-09-05 06:36] LABS: BASO % 0.3 % (0.0-1.0); EOS # 0.4 10^3/uL (0.0-0.5); EOS % 4.8 % (0.0-3.0); HEMATOCRIT 38.4 % (42.0-52.0); HEMOGLOBIN 13.1 g/dl (13.5-17.5); LYMPH # 0.8 10^3/uL (1.5-5.0); LYMPH % 9.3 % (24.0-44.0); MEAN CORPUSCULAR HEMOGLOBIN 33.2 pg (27.0-33.0); MEAN CORPUSCULAR HGB CONC 34.1 g/dl (32.0-36.5); MEAN CORPUSCULAR VOLUME 97.5 fl (80.0-96.0); MONO # 1.1 10^3/uL (0.0-0.8); MONO % 12.8 % (2.0-8.0); NEUTROPHILS # 6.2 10^3/uL (1.5-8.5); NEUTROPHILS % 71.9 % (36.0-66.0); PLATELET COUNT, AUTOMATED 147 10^3/uL (150-450); RED BLOOD COUNT 3.94 10^6/uL (4.30-6.10); WHITE BLOOD COUNT 8.6 10^3/uL (4.0-10.0)
[2023-09-05 06:47] LABS: ERYTHROCYTE SEDIMENTATION RATE 38 mm/hr (0-20)
[2023-09-05 07:09] LABS: PROCALCITONIN 0.57 ng/ml
[2023-09-05 07:17] LABS: ALKALINE PHOSPHATASE 85 U/L (46-116); ALT/SGPT 22 U/L (7.0-40); AST/SGOT 24 U/L (<34); BILIRUBIN,TOTAL 0.3 MG/DL (0.3-1.2); BLOOD UREA NITROGEN 21 MG/DL (9-23); CARBON DIOXIDE LEVEL 27 MMOL/L (20-31); CHLORIDE LEVEL 111 MMOL/L (98-107); CREATININE FOR GFR 0.64 MG/DL (0.70-1.30); GLOMERULAR FILTRATION RATE > 60.0 (>56); GLUCOSE, FASTING 89 MG/DL (60-100); MAGNESIUM LEVEL 1.9 MG/DL (1.8-2.4); SODIUM LEVEL 143 MMOL/L (136-145); TOTAL PROTEIN 5.2 G/DL (5.7-8.2)
[2023-09-05] MEDS: VANCOMYCIN ORAL SOL 250MG/5ML ORAL SYRINGE PO SCH (13:15)
[2023-09-06] VITALS (42 sets, daily range): BP systolic 105–158; BP diastolic 58–78; TEMP 97.6–98.4; O2SAT 74–99
[2023-09-06 06:41] LABS: BASO # 0.1 10^3/uL (0.0-0.2); BASO % 0.8 % (0.0-1.0); EOS # 0.5 10^3/uL (0.0-0.5); EOS % 7.1 % (0.0-3.0); HEMATOCRIT 40.6 % (42.0-52.0); HEMOGLOBIN 13.9 g/dl (13.5-17.5); LYMPH # 0.9 10^3/uL (1.5-5.0); LYMPH % 13.7 % (24.0-44.0); MEAN CORPUSCULAR HEMOGLOBIN 33.5 pg (27.0-33.0); MEAN CORPUSCULAR HGB CONC 34.2 g/dl (32.0-36.5); MEAN CORPUSCULAR VOLUME 97.8 fl (80.0-96.0); MONO # 1.1 10^3/uL (0.0-0.8); MONO % 17.8 % (2.0-8.0); NEUTROPHILS # 3.6 10^3/uL (1.5-8.5); NEUTROPHILS % 56.3 % (36.0-66.0); PLATELET COUNT, AUTOMATED 183 10^3/uL (150-450); RED BLOOD COUNT 4.15 10^6/uL (4.30-6.10); WHITE BLOOD COUNT 6.4 10^3/uL (4.0-10.0)
[2023-09-06 07:10] LABS: ALKALINE PHOSPHATASE 85 U/L (46-116); ALT/SGPT 21 U/L (7.0-40); AST/SGOT 21 U/L (<34); BILIRUBIN,TOTAL 0.2 MG/DL (0.3-1.2); BLOOD UREA NITROGEN 15 MG/DL (9-23); CALCIUM LEVEL 8.1 MG/DL (8.5-10.1); CARBON DIOXIDE LEVEL 32 MMOL/L (20-31); CHLORIDE LEVEL 104 MMOL/L (98-107); CREATININE FOR GFR 0.48 MG/DL (0.70-1.30); GLOMERULAR FILTRATION RATE > 60.0 (>56); GLUCOSE, FASTING 102 MG/DL (60-100); MAGNESIUM LEVEL 1.6 MG/DL (1.8-2.4); POTASSIUM SERUM 4.2 MMOL/L (3.5-5.1); SODIUM LEVEL 138 MMOL/L (136-145); TOTAL PROTEIN 5.2 G/DL (5.7-8.2)
[2023-09-06] MEDS: MAG SULF 1GM/100ML (MAG RUN) 1 GM in IV 1 EA IV ONE (13:11)
[2023-09-06] MEDS: FUROSEMIDE 40MG/4ML VIAL IV ONE (13:11)
[2023-09-07] VITALS (13 sets, daily range): BP systolic 94–132; BP diastolic 50–89; TEMP 97.6–98.8; O2SAT 91–97
[2023-09-07] MEDS ORDERED: diphenhydrAMINE CREAM 30GM TOP PRN (02:00)
[2023-09-07] MEDS ORDERED: metroNIDAZOLE (FLAGYL) 500MG TABLET PO SCH (06:00)
[2023-09-07 08:38] LABS: HEMATOCRIT 44.7 % (42.0-52.0); HEMOGLOBIN 15.3 g/dl (13.5-17.5); MEAN CORPUSCULAR HEMOGLOBIN 33.6 pg (27.0-33.0); MEAN CORPUSCULAR HGB CONC 34.2 g/dl (32.0-36.5); PLATELET COUNT, AUTOMATED 206 10^3/uL (150-450); RED BLOOD COUNT 4.56 10^6/uL (4.30-6.10); WHITE BLOOD COUNT 7.6 10^3/uL (4.0-10.0)
[2023-09-07 08:58] LABS: ALBUMIN 2.3 G/DL (3.2-5.2); ALKALINE PHOSPHATASE 92 U/L (46-116); ALT/SGPT 17 U/L (7.0-40); AST/SGOT 15 U/L (<34); BILIRUBIN,TOTAL 0.3 MG/DL (0.3-1.2); BLOOD UREA NITROGEN 12 MG/DL (9-23); CALCIUM LEVEL 8.1 MG/DL (8.5-10.1); CARBON DIOXIDE LEVEL 34 MMOL/L (20-31); CHLORIDE LEVEL 99 MMOL/L (98-107); GLOMERULAR FILTRATION RATE > 60.0 (>56); GLUCOSE, FASTING 99 MG/DL (60-100); MAGNESIUM LEVEL 1.8 MG/DL (1.8-2.4); SODIUM LEVEL 136 MMOL/L (136-145); TOTAL PROTEIN 5.7 G/DL (5.7-8.2)
[2023-09-07] MEDS ORDERED: MIRALAX *UNIT DOSE* 17GM PACKET PO SCH (09:00)
[2023-09-07] MEDS ORDERED: metroNIDAZOLE (FLAGYL) 500MG TABLET PEG SCH (09:00)
[2023-09-07 09:04] LABS: ATYPICAL LYMPH 2 % (0-5); EOSINOPHILS 6 % (0-3); LYMPHOCYTES 20 % (16-44); MONOCYTES 22 % (0-5); MYELOCYTES 2 % (0-0); NEUTROPHILS 46 % (28-66); PLATELET ESTIMATE NORMAL (NORMAL)
[2023-09-07 09:05] LABS: ANISOCYTOSIS 1+; POLYCHROMASIA 1+
[2023-09-07] MEDS: metroNIDAZOLE (FLAGYL) 500MG TABLET PEG SCH (09:47)
[2023-09-07] MEDS: BISACODYL 10MG SUPP PR PRN (11:24)
[2023-09-07] MEDS ORDERED: ISOVUE-370 76% 100ML VIAL As Ordered ONE (14:19)
[2023-09-07] MEDS: HEPARIN SOD (PORCINE) 5000UNITS/ML 1ML VIAL/SYRINGE SQ SCH (15:20)
[2023-09-07] MEDS: FUROSEMIDE 20MG/2ML VIAL IV ONE (15:21)
[2023-09-07] MEDS: CEFDINIR 300 MG CAP (OMNICEF) PEG SCH (21:30)
[2023-09-08] VITALS (9 sets, daily range): BP systolic 99–126; BP diastolic 53–64; TEMP 97.3–98.6; O2SAT 89–94
[2023-09-08 05:19] LABS: BASO % 0.4 % (0.0-1.0); EOS # 0.4 10^3/uL (0.0-0.5); HEMATOCRIT 44.1 % (42.0-52.0); HEMOGLOBIN 15.1 g/dl (13.5-17.5); LYMPH # 1.8 10^3/uL (1.5-5.0); LYMPH % 19.8 % (24.0-44.0); MEAN CORPUSCULAR HEMOGLOBIN 33.5 pg (27.0-33.0); MEAN CORPUSCULAR HGB CONC 34.2 g/dl (32.0-36.5); MEAN CORPUSCULAR VOLUME 97.8 fl (80.0-96.0); MONO # 1.9 10^3/uL (0.0-0.8); NEUTROPHILS # 3.9 10^3/uL (1.5-8.5); NEUTROPHILS % 43.5 % (36.0-66.0); PLATELET COUNT, AUTOMATED 253 10^3/uL (150-450); RED BLOOD COUNT 4.51 10^6/uL (4.30-6.10); WHITE BLOOD COUNT 8.9 10^3/uL (4.0-10.0)
[2023-09-08 05:44] LABS: ALBUMIN 2.2 G/DL (3.2-5.2); ALKALINE PHOSPHATASE 93 U/L (46-116); ALT/SGPT 18 U/L (7.0-40); AST/SGOT 33 U/L (<34); BILIRUBIN,TOTAL 0.2 MG/DL (0.3-1.2); BLOOD UREA NITROGEN 13 MG/DL (9-23); CALCIUM LEVEL 7.9 MG/DL (8.5-10.1); CARBON DIOXIDE LEVEL 30 MMOL/L (20-31); CHLORIDE LEVEL 101 MMOL/L (98-107); CREATININE FOR GFR 0.51 MG/DL (0.70-1.30); GLOMERULAR FILTRATION RATE > 60.0 (>56); GLUCOSE, FASTING 116 MG/DL (60-100); MAGNESIUM LEVEL 1.8 MG/DL (1.8-2.4); POTASSIUM SERUM 5.2 MMOL/L (3.5-5.1); SODIUM LEVEL 135 MMOL/L (136-145); TOTAL PROTEIN 5.9 G/DL (5.7-8.2)
[2023-09-08] MEDS: FUROSEMIDE 40MG/4ML VIAL IV ONE (13:41)
[2023-09-08 16:08] LABS: BODY FLUID CULTURE Not indicated. (.); ORGANISM ID Not indicated. (.); SPECIMEN SOURCE Urine (.); URINE STREP PNEUMONIAE ANTIGEN Negative (Negative)
[2023-09-09] VITALS (11 sets, daily range): BP systolic 104–121; BP diastolic 58–69; TEMP 97.2–98.8; O2SAT 86–92
[2023-09-09] MEDS: FUROSEMIDE 40MG/4ML VIAL IV ONE (12:23)
[2023-09-10 00:10] VITALS: BP 94/66; TEMP 98.1; O2SAT 93
[2023-09-10 03:55] VITALS: BP 100/54; TEMP 97.9; O2SAT 92
[2023-09-10 05:47] LABS: BASO % 0.4 % (0.0-1.0); EOS # 0.5 10^3/uL (0.0-0.5); EOS % 4.5 % (0.0-3.0); HEMATOCRIT 42.1 % (42.0-52.0); HEMOGLOBIN 14.2 g/dl (13.5-17.5); LYMPH # 1.8 10^3/uL (1.5-5.0); LYMPH % 15.9 % (24.0-44.0); MEAN CORPUSCULAR HEMOGLOBIN 33.2 pg (27.0-33.0); MEAN CORPUSCULAR HGB CONC 33.7 g/dl (32.0-36.5); MEAN CORPUSCULAR VOLUME 98.4 fl (80.0-96.0); MONO # 1.5 10^3/uL (0.0-0.8); MONO % 13.6 % (2.0-8.0); NEUTROPHILS # 6.3 10^3/uL (1.5-8.5); NEUTROPHILS % 55.9 % (36.0-66.0); PLATELET COUNT, AUTOMATED 299 10^3/uL (150-450); RED BLOOD COUNT 4.28 10^6/uL (4.30-6.10); WHITE BLOOD COUNT 11.2 10^3/uL (4.0-10.0)
[2023-09-10 06:14] LABS: ALBUMIN 2.8 G/DL (3.2-5.2); ALKALINE PHOSPHATASE 81 U/L (46-116); ALT/SGPT 12 U/L (7.0-40); AST/SGOT 23 U/L (<34); BILIRUBIN,TOTAL 0.3 MG/DL (0.3-1.2); BLOOD UREA NITROGEN 19 MG/DL (9-23); CALCIUM LEVEL 8.2 MG/DL (8.5-10.1); CARBON DIOXIDE LEVEL 35 MMOL/L (20-31); CHLORIDE LEVEL 96 MMOL/L (98-107); CREATININE FOR GFR 0.51 MG/DL (0.70-1.30); GLOMERULAR FILTRATION RATE > 60.0 (>56); GLUCOSE, FASTING 107 MG/DL (60-100); POTASSIUM SERUM 3.9 MMOL/L (3.5-5.1); SODIUM LEVEL 135 MMOL/L (136-145); TOTAL PROTEIN 6.7 G/DL (5.7-8.2)
[2023-09-10 08:13] VITALS: BP 127/73; TEMP 97.3; O2SAT 93
[2023-09-10] MEDS: FUROSEMIDE 40MG/4ML VIAL IV ONE (13:12)
[2023-09-10 16:19] VITALS: BP 100/80; TEMP 98.6; O2SAT 88
[2023-09-10 16:21] VITALS: O2SAT 92
[2023-09-10 19:50] VITALS: BP 126/77; TEMP 97.9; O2SAT 93
[2023-09-11] VITALS: BP 100/70; TEMP 97.1; O2SAT 92
[2023-09-11 04:00] VITALS: BP 118/65; TEMP 97.1; O2SAT 92
[2023-09-11 06:54] LABS: HEMATOCRIT 42.6 % (42.0-52.0); HEMOGLOBIN 14.5 g/dl (13.5-17.5); MEAN CORPUSCULAR HEMOGLOBIN 33.5 pg (27.0-33.0); MEAN CORPUSCULAR VOLUME 98.4 fl (80.0-96.0); PLATELET COUNT, AUTOMATED 308 10^3/uL (150-450); RED BLOOD COUNT 4.33 10^6/uL (4.30-6.10); WHITE BLOOD COUNT 11.4 10^3/uL (4.0-10.0)
[2023-09-11 07:25] LABS: ALBUMIN 2.4 G/DL (3.2-5.2); ALKALINE PHOSPHATASE 86 U/L (46-116); ALT/SGPT 11 U/L (7.0-40); AST/SGOT 19 U/L (<34); BILIRUBIN,TOTAL 0.2 MG/DL (0.3-1.2); BLOOD UREA NITROGEN 18 MG/DL (9-23); CALCIUM LEVEL 8.2 MG/DL (8.5-10.1); CARBON DIOXIDE LEVEL 32 MMOL/L (20-31); CHLORIDE LEVEL 100 MMOL/L (98-107); CREATININE FOR GFR 0.47 MG/DL (0.70-1.30); GLOMERULAR FILTRATION RATE > 60.0 (>56); GLUCOSE, FASTING 109 MG/DL (60-100); POTASSIUM SERUM 4.4 MMOL/L (3.5-5.1); SODIUM LEVEL 137 MMOL/L (136-145); TOTAL PROTEIN 6.6 G/DL (5.7-8.2)
[2023-09-11 07:35] LABS: EOSINOPHILS 5 % (0-3); LYMPHOCYTES 2 % (16-44); METAMYELOCYTES 1 % (0-0); MONOCYTES 15 % (0-5); NEUTROPHILS 60 % (28-66)
[2023-09-11 07:36] LABS: ATYPICAL LYMPH 14 % (0-5); PLATELET ESTIMATE NORMAL (NORMAL)
[2023-09-11 07:37] LABS: TOXIC VACUOLATION 1+
[2023-09-11 08:00] VITALS: BP 112/71; TEMP 96.8; O2SAT 98
[2023-09-11 09:00] VITALS: O2SAT 95
[2023-09-11] MEDS ORDERED: FIRV50SO PO (10:56)
[2023-09-11] MEDS ORDERED: CEFD300CAP PEG (10:56)
[2023-09-17] MEDS ORDERED: VANCOMYCIN ORAL SOL 250MG/5ML ORAL SYRINGE PO SCH (06:00)
[2023-09-24] MEDS ORDERED: VANCOMYCIN ORAL SOL 250MG/5ML ORAL SYRINGE PO SCH (09:00)
[2023-10-01] MEDS ORDERED: VANCOMYCIN ORAL SOL 250MG/5ML ORAL SYRINGE PO SCH (09:00)
== END 2023-09-11 11:48 | disposition home or self-care (01) | DRG 871 ==
LOC: M ED 21:17 → M ED INP 09-01 03:12 → ENRESERV 09-01 03:38 → M PCU 09-01 05:00 → M MSPAV 09-01 20:12 → M PCU 09-04 23:07
PROVIDERS: ADMIT Internal Medicine; ATTEND General Practice
PROC: 0F9430Z Drainage of Gallbladder with Drainage Device, Percutaneous Approach (ICD-10-PCS; 2023-09-02)
PROC: 30233J1 Transfusion of Nonautologous Serum Albumin into Peripheral Vein, Percutaneous Approach (ICD-10-PCS; principal; 2023-09-08)
PROC: B246ZZZ Ultrasonography of Right and Left Heart (ICD-10-PCS; 2023-09-09)
DX: A41.9 Sepsis, unspecified organism (principal); J96.01 Acute respiratory failure with hypoxia; A04.72 Enterocolitis due to Clostridium difficile, not specified as recurrent; K81.0 Acute cholecystitis; J98.11 Atelectasis; F79 Unspecified intellectual disabilities; G40.909 Epilepsy, unspecified, not intractable, without status epilepticus; K21.9 Gastro-esophageal reflux disease without esophagitis; E83.42 Hypomagnesemia; D64.9 Anemia, unspecified; R41.82 Altered mental status, unspecified; K59.00 Constipation, unspecified; Z93.1 Gastrostomy status; R65.20 Severe sepsis without septic shock; E87.6 Hypokalemia; J45.909 Unspecified asthma, uncomplicated; N40.0 Benign prostatic hyperplasia without lower urinary tract symptoms; B96.1 Klebsiella pneumoniae [K. pneumoniae] as the cause of diseases classified elsewhere; E87.70 Fluid overload, unspecified; Z79.82 Long term (current) use of aspirin; Z79.899 Other long term (current) drug therapy; Z88.0 Allergy status to penicillin; Z88.1 Allergy status to other antibiotic agents; Z88.8 Allergy status to other drugs, medicaments and biological substances; Z91.018 Allergy to other foods; Z20.822 Contact with and (suspected) exposure to COVID-19; Z87.820 Personal history of traumatic brain injury

== ENCOUNTER → 2023-09-21 | Outpatient (CLI) | payer MEDICARE, MEDICAID ==
[~2023-09-21] MED LIST changes: +ASPI-655 GT; +CEFD300CAP PEG; +FIRV50SO PO; +FLOM0.4C39 GT; +MULT-40 GT; +SENN8.6T28 GT; +VITA500030 GT
[2023-09-21 11:19] LABS: BASO # 0.1 10^3/uL (0.0-0.2); BASO % 0.5 % (0.0-1.0); EOS # 0.7 10^3/uL (0.0-0.5); EOS % 5.5 % (0.0-3.0); HEMATOCRIT 45.3 % (42.0-52.0); HEMOGLOBIN 15.2 g/dl (13.5-17.5); LYMPH # 1.8 10^3/uL (1.5-5.0); LYMPH % 13.6 % (24.0-44.0); MEAN CORPUSCULAR HEMOGLOBIN 33.3 pg (27.0-33.0); MEAN CORPUSCULAR HGB CONC 33.6 g/dl (32.0-36.5); MEAN CORPUSCULAR VOLUME 99.3 fl (80.0-96.0); MONO # 2.4 10^3/uL (0.0-0.8); MONO % 17.9 % (2.0-8.0); NEUTROPHILS # 8.2 10^3/uL (1.5-8.5); NEUTROPHILS % 61.9 % (36.0-66.0); PLATELET COUNT, AUTOMATED 337 10^3/uL (150-450); RED BLOOD COUNT 4.56 10^6/uL (4.30-6.10); WHITE BLOOD COUNT 13.2 10^3/uL (4.0-10.0)
[2023-09-21 11:45] LABS: BLOOD UREA NITROGEN 38 MG/DL (9-23); CALCIUM LEVEL 8.2 MG/DL (8.5-10.1); CARBON DIOXIDE LEVEL 27 MMOL/L (20-31); CHLORIDE LEVEL 109 MMOL/L (98-107); CREATININE FOR GFR 0.56 MG/DL (0.70-1.30); GLOMERULAR FILTRATION RATE > 60.0 (>56); GLUCOSE, FASTING 117 MG/DL (60-100); POTASSIUM SERUM 5.4 MMOL/L (3.5-5.1); SODIUM LEVEL 138 MMOL/L (136-145)
== END ==
LOC: M LAB 10:29
PROVIDERS: ATTEND Family Medicine
DX: K81.0 Acute cholecystitis (principal)

== ENCOUNTER 2023-09-23 08:31 | Inpatient (IN) | payer MEDICARE, MEDICAID ==
[2023-09-23] VITALS (15 sets, daily range): BP systolic 90–113; BP diastolic 53–63; TEMP 97.1–99; O2SAT 96–99
[~2023-09-23] VITALS: Ht 172.7 cm; Wt 80.1 kg
[~2023-09-23 08:31] MED LIST changes: -SENN1TAB41 PO; +SENN1TAB85 PO
[2023-09-23] MEDS ORDERED: ACETAMINOPHEN TAB 650MG DOSE (2X325MG) PO ONE (08:50)
[2023-09-23 09:33] LABS: BASO # 0.1 10^3/uL (0.0-0.2); BASO % 0.8 % (0.0-1.0); EOS # 0.8 10^3/uL (0.0-0.5); EOS % 8.8 % (0.0-3.0); HEMATOCRIT 43.7 % (42.0-52.0); HEMOGLOBIN 14.5 g/dl (13.5-17.5); LYMPH # 1.5 10^3/uL (1.5-5.0); LYMPH % 16.7 % (24.0-44.0); MEAN CORPUSCULAR HEMOGLOBIN 33.3 pg (27.0-33.0); MEAN CORPUSCULAR HGB CONC 33.2 g/dl (32.0-36.5); MEAN CORPUSCULAR VOLUME 100.5 fl (80.0-96.0); MONO # 1.7 10^3/uL (0.0-0.8); MONO % 18.6 % (2.0-8.0); NEUTROPHILS # 5.1 10^3/uL (1.5-8.5); NEUTROPHILS % 54.7 % (36.0-66.0); PLATELET COUNT, AUTOMATED 278 10^3/uL (150-450); RED BLOOD COUNT 4.35 10^6/uL (4.30-6.10); WHITE BLOOD COUNT 9.2 10^3/uL (4.0-10.0)
[2023-09-23] MEDS: NS 500 ML IV ONE (09:51)
[2023-09-23 10:01] LABS: INR 1.04; PARTIAL THROMBOPLASTIN TIME 28.9 SECONDS (24.8-34.2); PROTHROMBIN TIME 13.3 SECONDS (12.5-14.5)
[2023-09-23 10:06] LABS: LIPASE 31 U/L (12-53)
[2023-09-23 10:08] LABS: ALBUMIN 2.1 G/DL (3.2-5.2); ALKALINE PHOSPHATASE 74 U/L (46-116); ALT/SGPT 21 U/L (7.0-40); AST/SGOT 23 U/L (<34); BILIRUBIN,DIRECT 0.2 MG/DL (<0.4); BILIRUBIN,TOTAL 0.4 MG/DL (0.3-1.2); BLOOD UREA NITROGEN 33 MG/DL (9-23); CALCIUM LEVEL 8.2 MG/DL (8.5-10.1); CARBON DIOXIDE LEVEL 30 MMOL/L (20-31); CHLORIDE LEVEL 105 MMOL/L (98-107); CREATININE FOR GFR 0.53 MG/DL (0.70-1.30); GLOMERULAR FILTRATION RATE > 60.0 (>56); GLUCOSE, FASTING 104 MG/DL (60-100); POTASSIUM SERUM 5.6 MMOL/L (3.5-5.1); SODIUM LEVEL 140 MMOL/L (136-145); TOTAL PROTEIN 7.8 G/DL (5.7-8.2)
[2023-09-23] MEDS ORDERED: ISOVUE-370 76% 100ML VIAL As Ordered ONE (10:19)
[2023-09-23 10:59] LABS: APPEARANCE, URINE HAZY (CLEAR); BACTERIA, URINE AUTO NEGATIVE (NEGATIVE); BILIRUBIN, URINE AUTO NEGATIVE (NEGATIVE); BLOOD, URINE BLOOD 1+ (NEGATIVE); COLOR, URINE AMBER (YELLOW); GLUCOSE, URINE (UA) AUTO NEGATIVE (NEGATIVE); KETONE, URINE AUTO NEGATIVE (NEGATIVE); LEUKOCYTE ESTERASE, URINE AUTO NEGATIVE (NEGATIVE); MUCUS, URINE MODERATE (NEGATIVE); NITRITE, URINE AUTO NEGATIVE (NEGATIVE); PROTEIN, URINE AUTO 2+ mg/dL (NEGATIVE); RBC, URINE AUTO TNTC /HPF (0-3); SPECIFIC GRAVITY URINE AUTO 1.026 (1.002-1.035); SQUAMOUS EPITHELIAL CELL UR AU 0 /HPF (0-6); UROBILINOGEN, URINE AUTO 0.2 mg/dL (0.0-2.0); WBC, URINE AUTO 0 /HPF (0-3)
[2023-09-23] MEDS: ACETAMINOPHEN 325MG/10.15ML UDC FT ONE (11:20)
[2023-09-23] MEDS ORDERED: metroNIDAZOLE 500 MG in IV 1 EA IV ONE (12:20)
[2023-09-23] MEDS ORDERED: CEFEPIME HCL 2 GM in D5W MINI-BAG PLUS 50 ML IV ONE (12:20)
[2023-09-23] MEDS ORDERED: VANCOMYCIN 125MG CAPSULE PO SCH (12:30)
[2023-09-23] MEDS: NS 1,000 ML IV ONE (12:35)
[2023-09-23] MEDS: DEXTROSE 50% 50ML SYRINGE IV STA (13:35)
[2023-09-23] MEDS: HumuLIN R (REGULAR) INSULIN (NovoLIN R) **100U/ML** PER UNIT IV ONE (13:36)
[2023-09-23] MEDS: CALCIUM GLUCONATE 1,000 MG in D5W MINI-BAG PLUS 100 ML IV ONE (13:36)
[2023-09-23] MEDS ORDERED: ACETAMINOPHEN TAB 650MG DOSE (2X325MG) PO PRN (13:50)
[2023-09-23] MEDS ORDERED: PERCOCET 5MG/325MG TAB PO PRN (13:50)
[2023-09-23] MEDS ORDERED: BISACODYL 10MG SUPP PR PRN ×2 (13:50→16:45)
[2023-09-23] MEDS ORDERED: KCL 20MEQ IN D5/NS 1000ML 1,000 ML IV SCH (13:50)
[2023-09-23] MEDS ORDERED: ONDANSETRON 4MG 2ML VIAL IV PRN (13:50)
[2023-09-23] MEDS ORDERED: LEVALBUTEROL 1.25MG 0.5ML CONCENTRATE NEB NEB PRN (13:50)
[2023-09-23] MEDS: LIDOCAINE 1% MDV 20ML VIAL IM ONE (14:20)
[2023-09-23] MEDS ORDERED: LIDOCAINE 1% MDV 20ML VIAL As Ordered ONE (14:22)
[2023-09-23] MEDS ORDERED: flumazeniL 0.5MG/5ML VIAL As Ordered ONE (14:23)
[2023-09-23 14:27] LABS: POTASSIUM SERUM 4.9 MMOL/L (3.5-5.1)
[2023-09-23 14:30] LABS: LDH LACTATE DEHYDROGENASE 197 U/L (120-246)
[2023-09-23] MEDS: MIDAZOLAM INJ 2MG/2ML VIAL IV STA (14:34)
[2023-09-23] MEDS ORDERED: FIRV50SO PO (14:42)
[2023-09-23] MEDS ORDERED: CEFD1CAP9 PEG (14:42)
[2023-09-23] MEDS ORDERED: HOME MED LIST COMPLETE! XX SCH (15:05)
[2023-09-23 15:39] LABS: PH BODY FLUID 7.473 UNITS (NOT ESTABLISHED); SOURCE, BODY FLUID pH PLEURAL
[2023-09-23 15:45] LABS: APPEARANCE, BODY FLUID TURBID (CLEAR); PLEURAL FL COLOR RED (COLORLESS); SOURCE, BODY FLUID PLEURAL
[2023-09-23 15:59] LABS: SOURCE, BODY FLUID ALBUMIN PLEURAL
[2023-09-23 16:04] LABS: SOURCE, BODY FLUID GLUCOSE PLEURAL; SOURCE, BODY FLUID TRIG PLEURAL; TRIGLYCERIDE, BODY FLUID 32 MG/DL (NOT ESTABLISHED)
[2023-09-23 16:06] LABS: AMYLASE, BODY FLUID 32 U/L (NOT ESTABLISHED); CHOLESTEROL, BODY FLUID 68 MG/DL (NOT ESTABLISHED); LDH, BODY FLUID 684 U/L (NOT ESTABLISHED); SOURCE, BODY FLUID AMYLASE PLEURAL; SOURCE, BODY FLUID CHOL PLEURAL; SOURCE, BODY FLUID LDH PLEURAL; SOURCE, BODY FLUID TOT PROTEIN PLEURAL; TOTAL PROTEIN, BODY FLUID 5.5 G/DL (NOT ESTABLISHED)
[2023-09-23 16:38] LABS: PROCALCITONIN 0.05 ng/ml
[2023-09-23] MEDS ORDERED: DOCUSATE SODIUM 100MG CAPSULE PO PRN (16:45)
[2023-09-23] MEDS ORDERED: MOM 30ML SUSPENSION UDC PO PRN (16:45)
[2023-09-23] MEDS: KETOROLAC 30 MG/ML 1ML VIAL IV SCH (16:50)
[2023-09-23] MEDS: CEFEPIME HCL 2 GM in D5W MINI-BAG PLUS 50 ML IV SCH (16:50)
[2023-09-23] MEDS: D5W/0.9% SODIUM CHLORIDE 1,000 ML IV SCH (16:50)
[2023-09-23] MEDS: LACTOBACILLUS ACIDOPHILUS CAP (BACID) PEG SCH (17:00)
[2023-09-23] MEDS: metroNIDAZOLE 500 MG in IV 1 EA IV SCH (17:58)
[2023-09-23] MEDS: LEVALBUTEROL 1.25MG 0.5ML CONCENTRATE NEB NEB SCH (18:10)
[2023-09-23] MEDS: VALPROIC ACID 500MG/10ML SOL ORAL SYRINGE GT SCH (20:56)
[2023-09-23] MEDS: VANCOMYCIN ORAL SOL 250MG/5ML ORAL SYRINGE PO SCH (20:56)
[2023-09-23] MEDS: LACOSAMIDE 10MG/ML 20ML VIAL (VIMPAT) IV SCH (20:56)
[2023-09-23] MEDS ORDERED: POTASSIUM CHLORIDE 10% LIQ 20MEQ/15ML UDC PO SCH (21:00)
[2023-09-23] MEDS ORDERED: LACOSAMIDE 50 MG TAB (VIMPAT) PO SCH (21:00)
[2023-09-23] MEDS ORDERED: DOCUSATE SODIUM 100MG CAPSULE PO SCH (21:00)
[2023-09-24] VITALS: BP 93/53; TEMP 97.6; O2SAT 95
[2023-09-24] MEDS: PERCOCET 5MG/325MG TAB PO PRN (01:34)
[2023-09-24 04:00] VITALS: BP 121/77; TEMP 97; O2SAT 95
[2023-09-24 05:02] LABS: BASO # 0.1 10^3/uL (0.0-0.2); BASO % 0.7 % (0.0-1.0); EOS # 0.7 10^3/uL (0.0-0.5); EOS % 9.3 % (0.0-3.0); LYMPH # 0.9 10^3/uL (1.5-5.0); LYMPH % 11.2 % (24.0-44.0); MEAN CORPUSCULAR HEMOGLOBIN 33.2 pg (27.0-33.0); MEAN CORPUSCULAR HGB CONC 32.4 g/dl (32.0-36.5); MEAN CORPUSCULAR VOLUME 102.2 fl (80.0-96.0); MONO # 1.4 10^3/uL (0.0-0.8); MONO % 17.8 % (2.0-8.0); NEUTROPHILS # 4.6 10^3/uL (1.5-8.5); NEUTROPHILS % 60.5 % (36.0-66.0); PLATELET COUNT, AUTOMATED 230 10^3/uL (150-450); RED BLOOD COUNT 3.65 10^6/uL (4.30-6.10); WHITE BLOOD COUNT 7.7 10^3/uL (4.0-10.0)
[2023-09-24 05:22] LABS: BLOOD UREA NITROGEN 39 MG/DL (9-23); CALCIUM LEVEL 7.5 MG/DL (8.5-10.1); CARBON DIOXIDE LEVEL 29 MMOL/L (20-31); CHLORIDE LEVEL 110 MMOL/L (98-107); CREATININE FOR GFR 0.71 MG/DL (0.70-1.30); GLOMERULAR FILTRATION RATE > 60.0 (>56); GLUCOSE, FASTING 107 MG/DL (60-100); POTASSIUM SERUM 4.6 MMOL/L (3.5-5.1); SODIUM LEVEL 142 MMOL/L (136-145)
[2023-09-24 05:43] LABS: HEMATOCRIT 37.3 % (42.0-52.0); HEMOGLOBIN 12.1 g/dl (13.5-17.5)
[2023-09-24 05:48] LABS: ABG BASE EXCESS 1.6 (-2.0-2.0); ABG HCO3 27.5 MMOL/L (22.0-26.0); ABG O2 SATURATION 98.5 % (95.0-99.0); ABG PARTIAL PRESSURE CO2 48.6 mmHg (35.0-45.0); ABG PARTIAL PRESSURE O2 141.8 mmHg (75.0-100.0); ABG STANDARD HCO3 25.9 MMOL/L. (22.0-26.0)
[2023-09-24 08:00] VITALS: BP 110/72; TEMP 97.1; O2SAT 95
[2023-09-24] MEDS: PANTOPRAZOLE 40MG VIAL IV SCH (08:51)
[2023-09-24] MEDS: FERROUS SULFATE 300MG/5ML UDC LIQUID GT SCH (08:52)
[2023-09-24] MEDS ORDERED: MOM 30ML SUSPENSION UDC PO SCH (09:00)
[2023-09-24] MEDS ORDERED: PANTOPRAZOLE 40MG TAB (PROTONIX) PO SCH (09:00)
[2023-09-24] MEDS ORDERED: TAMSULOSIN 0.4 MG CAP PO SCH (09:00)
[2023-09-24 12:00] VITALS: BP 96/70; TEMP 97.2; O2SAT 98
[2023-09-24 16:00] VITALS: BP 96/52; TEMP 96.9; O2SAT 91
[2023-09-24 20:00] VITALS: BP 100/52; TEMP 97; O2SAT 93
[2023-09-25 00:04] VITALS: BP 97/58; TEMP 97.1; O2SAT 94
[2023-09-25 04:00] VITALS: BP 99/54; TEMP 97; O2SAT 95
[2023-09-25 04:25] LABS: BASO # 0.1 10^3/uL (0.0-0.2); BASO % 0.9 % (0.0-1.0); EOS # 0.7 10^3/uL (0.0-0.5); EOS % 11.3 % (0.0-3.0); HEMATOCRIT 32.9 % (42.0-52.0); HEMOGLOBIN 10.8 g/dl (13.5-17.5); LYMPH # 0.7 10^3/uL (1.5-5.0); LYMPH % 12.5 % (24.0-44.0); MEAN CORPUSCULAR HEMOGLOBIN 33.3 pg (27.0-33.0); MEAN CORPUSCULAR HGB CONC 32.8 g/dl (32.0-36.5); MEAN CORPUSCULAR VOLUME 101.5 fl (80.0-96.0); MONO # 0.8 10^3/uL (0.0-0.8); MONO % 14.4 % (2.0-8.0); NEUTROPHILS # 3.5 10^3/uL (1.5-8.5); NEUTROPHILS % 60.4 % (36.0-66.0); PLATELET COUNT, AUTOMATED 199 10^3/uL (150-450); RED BLOOD COUNT 3.24 10^6/uL (4.30-6.10); WHITE BLOOD COUNT 5.9 10^3/uL (4.0-10.0)
[2023-09-25 04:37] LABS: BLOOD UREA NITROGEN 34 MG/DL (9-23); CALCIUM LEVEL 7.2 MG/DL (8.5-10.1); CARBON DIOXIDE LEVEL 27 MMOL/L (20-31); CHLORIDE LEVEL 112 MMOL/L (98-107); CREATININE FOR GFR 0.55 MG/DL (0.70-1.30); GLOMERULAR FILTRATION RATE > 60.0 (>56); GLUCOSE, FASTING 108 MG/DL (60-100); POTASSIUM SERUM 3.9 MMOL/L (3.5-5.1); SODIUM LEVEL 145 MMOL/L (136-145)
[2023-09-25] MEDS: PERCOCET 5MG/325MG TAB PEG ONE (07:10)
[2023-09-25 08:00] VITALS: BP 115/67; TEMP 97.6; O2SAT 94
[2023-09-25 12:01] VITALS: BP 97/73; TEMP 97.4; O2SAT 96
[2023-09-25 15:00] VITALS: BP 107/81; TEMP 97.9; O2SAT 93
[2023-09-25 19:37] VITALS: BP 115/78; TEMP 98.6; O2SAT 95
[2023-09-26 04:27] VITALS: BP 117/73; TEMP 98.8; O2SAT 96
[2023-09-26 07:52] LABS: BASO % 0.4 % (0.0-1.0); EOS # 0.8 10^3/uL (0.0-0.5); EOS % 11.8 % (0.0-3.0); HEMOGLOBIN 11.6 g/dl (13.5-17.5); LYMPH # 1.2 10^3/uL (1.5-5.0); LYMPH % 16.9 % (24.0-44.0); MEAN CORPUSCULAR HEMOGLOBIN 33.4 pg (27.0-33.0); MEAN CORPUSCULAR HGB CONC 33.1 g/dl (32.0-36.5); MEAN CORPUSCULAR VOLUME 100.9 fl (80.0-96.0); MONO % 15.1 % (2.0-8.0); NEUTROPHILS # 3.8 10^3/uL (1.5-8.5); NEUTROPHILS % 55.5 % (36.0-66.0); PLATELET COUNT, AUTOMATED 234 10^3/uL (150-450); RED BLOOD COUNT 3.47 10^6/uL (4.30-6.10); WHITE BLOOD COUNT 6.8 10^3/uL (4.0-10.0)
[2023-09-26 08:14] LABS: BLOOD UREA NITROGEN 21 MG/DL (9-23); CALCIUM LEVEL 6.9 MG/DL (8.5-10.1); CARBON DIOXIDE LEVEL 29 MMOL/L (20-31); CHLORIDE LEVEL 109 MMOL/L (98-107); CREATININE FOR GFR 0.42 MG/DL (0.70-1.30); GLOMERULAR FILTRATION RATE > 60.0 (>56); GLUCOSE, FASTING 100 MG/DL (60-100); POTASSIUM SERUM 3.8 MMOL/L (3.5-5.1); SODIUM LEVEL 140 MMOL/L (136-145)
[2023-09-26 14:00] VITALS: BP 114/77; TEMP 98.1; O2SAT 96
[2023-09-26 21:00] VITALS: BP 120/86; TEMP 97.9; O2SAT 93
[2023-09-26 21:30] VITALS: O2SAT 93
[2023-09-27 06:05] VITALS: BP 113/79; TEMP 97.9; O2SAT 93
[2023-09-27 06:23] LABS: BASO % 0.7 % (0.0-1.0); EOS # 0.7 10^3/uL (0.0-0.5); EOS % 11.9 % (0.0-3.0); HEMATOCRIT 33.9 % (42.0-52.0); HEMOGLOBIN 11.6 g/dl (13.5-17.5); LYMPH # 1.1 10^3/uL (1.5-5.0); LYMPH % 19.6 % (24.0-44.0); MEAN CORPUSCULAR HEMOGLOBIN 33.4 pg (27.0-33.0); MEAN CORPUSCULAR HGB CONC 34.2 g/dl (32.0-36.5); MEAN CORPUSCULAR VOLUME 97.7 fl (80.0-96.0); MONO # 0.9 10^3/uL (0.0-0.8); MONO % 15.6 % (2.0-8.0); NEUTROPHILS % 51.9 % (36.0-66.0); PLATELET COUNT, AUTOMATED 219 10^3/uL (150-450); RED BLOOD COUNT 3.47 10^6/uL (4.30-6.10); WHITE BLOOD COUNT 5.8 10^3/uL (4.0-10.0)
[2023-09-27 06:57] LABS: BLOOD UREA NITROGEN 10 MG/DL (9-23); CARBON DIOXIDE LEVEL 30 MMOL/L (20-31); CHLORIDE LEVEL 106 MMOL/L (98-107); GLOMERULAR FILTRATION RATE > 60.0 (>56); GLUCOSE, FASTING 151 MG/DL (60-100); POTASSIUM SERUM 3.7 MMOL/L (3.5-5.1); SODIUM LEVEL 140 MMOL/L (136-145)
== END 2023-09-27 13:25 | disposition home or self-care (01) | DRG 919 ==
LOC: EDBD 08:31 → M ED 08:31 → M ED INP 12:13 → M ICU 14:04 → M MSPAV 09-25 14:55
PROVIDERS: ADMIT General Practice; ATTEND Family Medicine
PROC: 0W9930Z Drainage of Right Pleural Cavity with Drainage Device, Percutaneous Approach (ICD-10-PCS; principal; 2023-09-23)
DX: T85.598A Other mechanical complication of other gastrointestinal prosthetic devices, implants and grafts, initial encounter (principal); A41.9 Sepsis, unspecified organism; J18.9 Pneumonia, unspecified organism; J98.11 Atelectasis; J90 Pleural effusion, not elsewhere classified; K21.9 Gastro-esophageal reflux disease without esophagitis; K81.1 Chronic cholecystitis; J45.909 Unspecified asthma, uncomplicated; Z93.1 Gastrostomy status; E87.5 Hyperkalemia; G40.909 Epilepsy, unspecified, not intractable, without status epilepticus; F79 Unspecified intellectual disabilities; K59.00 Constipation, unspecified; Z86.73 Personal history of transient ischemic attack (TIA), and cerebral infarction without residual deficits; Z79.82 Long term (current) use of aspirin; Z79.899 Other long term (current) drug therapy; Z88.0 Allergy status to penicillin; Z91.018 Allergy to other foods; Z88.8 Allergy status to other drugs, medicaments and biological substances; Z87.820 Personal history of traumatic brain injury; Y83.1 Surgical operation with implant of artificial internal device as the cause of abnormal reaction of the patient, or of later complication, without mention of misadventure at the time of the procedure

== ENCOUNTER → 2023-10-19 | Outpatient (CLI) | payer MEDICARE, MEDICAID ==
[~2023-10-19] MED LIST changes: +CEFD1CAP9 PEG
== END ==
LOC: M RAD 09:15
PROVIDERS: ATTEND Family Medicine
DX: J98.11 Atelectasis (principal)

== ENCOUNTER 2023-12-07 21:29 | Emergency (ER) | payer MEDICARE, MEDICAID ==
[~2023-12-07] VITALS: Ht 175.3 cm; Wt 63.6 kg
[~2023-12-07 21:29] MED LIST changes: +DOXY-323 PO; +DOXY-440 PO; -DOXY-443 PO; -DOXY-444 PO
[2023-12-07 21:30] VITALS: BP 114/70; TEMP 99.6; O2SAT 94
== END 2023-12-08 00:47 | disposition left against medical advice (07) ==
LOC: M ED 21:29
DX: Z53.21 Procedure and treatment not carried out due to patient leaving prior to being seen by health care provider (principal)

== ENCOUNTER → 2024-07-12 | Outpatient (CLI) | payer MEDICARE, MEDICAID ==
[~2024-07-12] MED LIST changes: -DOXY-323 PO; +DOXY-441 PO; +NYST1POW3 TOP; -NYST1POW9 TOP; -VALP250S GT; -VALP250S PEG; +VALP250S26 GT; +VALP250S26 PEG
[2024-07-12 15:27] LABS: BASO % 0.3 % (0.0-1.0); EOS # 0.3 10^3/uL (0.0-0.5); EOS % 5.1 % (0.0-3.0); HEMOGLOBIN 16.8 g/dl (13.5-17.5); LYMPH # 1.8 10^3/uL (1.5-5.0); LYMPH % 31.2 % (24.0-44.0); MEAN CORPUSCULAR HEMOGLOBIN 32.7 pg (27.0-33.0); MEAN CORPUSCULAR HGB CONC 32.9 g/dl (32.0-36.5); MEAN CORPUSCULAR VOLUME 99.2 fl (80.0-96.0); MONO # 0.7 10^3/uL (0.0-0.8); MONO % 12.4 % (2.0-8.0); NEUTROPHILS % 50.7 % (36.0-66.0); PLATELET COUNT, AUTOMATED 195 10^3/uL (150-450); RED BLOOD COUNT 5.14 10^6/uL (4.30-6.10); WHITE BLOOD COUNT 5.9 10^3/uL (4.0-10.0)
[2024-07-12 16:01] LABS: ALBUMIN 3.1 G/DL (3.2-5.2); ALKALINE PHOSPHATASE 120 U/L (40-129); ALT/SGPT 57 U/L (7.0-40); AST/SGOT 40 U/L (<34); BILIRUBIN,TOTAL 0.5 MG/DL (0.3-1.2); BLOOD UREA NITROGEN 37 MG/DL (9-23); CALCIUM LEVEL 9.4 MG/DL (8.5-10.1); CARBON DIOXIDE LEVEL 30 MMOL/L (20-31); CHLORIDE LEVEL 116 MMOL/L (98-107); CREATININE FOR GFR 0.61 MG/DL (0.70-1.30); GLOMERULAR FILTRATION RATE > 60.0 (>56); GLUCOSE, FASTING 85 MG/DL (60-100); POTASSIUM SERUM 4.6 MMOL/L (3.5-5.1); SODIUM LEVEL 155 MMOL/L (136-145); TOTAL PROTEIN 8.1 G/DL (5.7-8.2)
== END ==
LOC: M LAB 14:57
PROVIDERS: ATTEND Psychiatry & Neurology Neurology
DX: G40.909 Epilepsy, unspecified, not intractable, without status epilepticus (principal)

== ENCOUNTER 2024-08-03 13:10 | Inpatient (IN) | payer MEDICARE, MEDICAID ==
[~2024-08-03] VITALS: Ht 172.7 cm; Wt 63.6 kg
[2024-08-03] MEDS: NS (Normal Saline) 0.9% 1,000 ML IV ONE (14:10)
[2024-08-03 15:08] LABS: VENOUS BASE EXCESS -2.3 (-2.0-2.0); VENOUS HCO3 24.7 MMOL/L (23.0-27.0); VENOUS O2 SATURATION 67.3 % (60.0-80.0); VENOUS PARTIAL PRESSURE CO2 50.5 mmHg (38.0-50.0); VENOUS PARTIAL PRESSURE O2 36.8 mmHg (30.0-50.0); VENOUS PH 7.307 UNITS (7.330-7.430); VENOUS STANDARD HCO3 21.8 MMOL/L; VENOUS TOTAL CO2 26.2 MMOL/L (24.0-28.0)
[2024-08-03 15:10] LABS: BASO % 0.4 % (0.0-1.0); EOS # 0.1 10^3/uL (0.0-0.5); EOS % 0.6 % (0.0-3.0); HEMATOCRIT 46.9 % (42.0-52.0); HEMOGLOBIN 15.3 g/dl (13.5-17.5); LYMPH # 1.5 10^3/uL (1.5-5.0); LYMPH % 16.3 % (24.0-44.0); MEAN CORPUSCULAR HEMOGLOBIN 33.9 pg (27.0-33.0); MEAN CORPUSCULAR HGB CONC 32.6 g/dl (32.0-36.5); MONO # 1.6 10^3/uL (0.0-0.8); MONO % 16.7 % (2.0-8.0); NEUTROPHILS # 6.1 10^3/uL (1.5-8.5); NEUTROPHILS % 65.6 % (36.0-66.0); PLATELET COUNT, AUTOMATED 106 10^3/uL (150-450); RED BLOOD COUNT 4.51 10^6/uL (4.30-6.10); WHITE BLOOD COUNT 9.4 10^3/uL (4.0-10.0)
[2024-08-03] MEDS: [UNRECOGNIZED DRUG - OTHER] IV ONE (15:27)
[2024-08-03] MEDS: NS 0.9% IV ONE (15:27)
[2024-08-03 15:44] LABS: ALBUMIN 2.7 G/DL (3.2-5.2); ALKALINE PHOSPHATASE 121 U/L (40-129); ALT/SGPT 75 U/L (7.0-40); AST/SGOT 71 U/L (<34); BILIRUBIN,DIRECT 0.2 MG/DL (<0.4); BILIRUBIN,TOTAL 0.7 MG/DL (0.3-1.2); BLOOD UREA NITROGEN 46 MG/DL (9-23); CALCIUM LEVEL 8.8 MG/DL (8.5-10.1); CARBON DIOXIDE LEVEL 30 MMOL/L (20-31); CHLORIDE LEVEL 118 MMOL/L (98-107); CREATININE FOR GFR 0.98 MG/DL (0.70-1.30); GLOMERULAR FILTRATION RATE > 60.0 (>56); GLUCOSE, FASTING 79 MG/DL (60-100); POTASSIUM SERUM 4.2 MMOL/L (3.5-5.1); SODIUM LEVEL 153 MMOL/L (136-145); TOTAL PROTEIN 7.3 G/DL (5.7-8.2)
[2024-08-03 15:46] LABS: THYROID STIMULATING HORMONE 3.451 uIU/ML (0.55-4.78); THYROXINE (T4) 9.1 UG/DL (4.5-10.9)
[2024-08-03 15:51] LABS: PROCALCITONIN 0.25 ng/ml
[2024-08-03] MEDS: methylPREDNISolone 125MG 2ML VIAL IV ONE (16:33)
[2024-08-03] MEDS ORDERED: HOME MED LIST COMPLETE! XX SCH (16:35)
[2024-08-03] MEDS ORDERED: MAALOX 30 ML SUSP *UDC PO PRN (16:45)
[2024-08-03] MEDS ORDERED: ACETAMINOPHEN 325 MG TAB PO PRN (16:45)
[2024-08-03] MEDS ORDERED: MOM 30ML SUSPENSION UDC PO PRN (16:45)
[2024-08-03] MEDS: LIDOCAINE 2% 5ML JELLY UROJET TOP ONE (16:50)
[2024-08-03 17:40] LABS: KETONE, URINE AUTO RFX TRACE mg/dL (NEGATIVE); LEUKOCYTE ESTERASE UR AUTO RFX NEGATIVE (NEGATIVE); MUCUS, URINE RFX SMALL (NEGATIVE); NITRITE, URINE AUTO RFX NEGATIVE (NEGATIVE); RBC, URINE AUTO RFX TNTC /HPF (0-3); SQUAM EPITHELIAL CELL UR AURFX 0 /HPF (0-6); WBC, URINE AUTO RFX 2 /HPF (0-3)
[2024-08-03 17:50] LABS: BLOOD UREA NITROGEN 44 MG/DL (9-23); CARBON DIOXIDE LEVEL 28 MMOL/L (20-31); CHLORIDE LEVEL 119 MMOL/L (98-107); CREATININE FOR GFR 0.85 MG/DL (0.70-1.30); GLOMERULAR FILTRATION RATE > 60.0 (>56); GLUCOSE, FASTING 85 MG/DL (60-100); MAGNESIUM LEVEL 1.8 MG/DL (1.8-2.4); POTASSIUM SERUM 4.1 MMOL/L (3.5-5.1); SODIUM LEVEL 155 MMOL/L (136-145)
[2024-08-03] MEDS ORDERED: NYSTATIN 100,000 UNITS/GM TOPICAL PWD 15GM TOP PRN (17:50)
[2024-08-03] MEDS ORDERED: D5W 1,000 ML IV SCH (17:55)
[2024-08-03 18:20] LABS: OSMOLALITY SERUM 332 MOSM/KG (275-295)
[2024-08-03] MEDS: D5W/0.45% SODIUM CHLORIDE 1,000 ML IV SCH (18:30)
[2024-08-03] MEDS: guaiFENesin SYRUP 200MG 10ML UDC GT SCH (20:28)
[2024-08-03] MEDS: ENOXAPARIN 40MG/0.4ML SYRINGE (J1650 PER 10MG) SC SCH (20:29)
[2024-08-03] MEDS: CHLORHEXIDINE GLUCONATE 0.12 % 15ML UDC (PERIDEX ORAL RINSE) MT SCH (20:29)
[2024-08-03] MEDS: LACOSAMIDE 10MG/ML 20ML VIAL (VIMPAT) IV SCH (20:46)
[2024-08-03] MEDS ORDERED: LACOSAMIDE 50 MG TAB (VIMPAT) XX SCH (21:00)
[2024-08-03 22:00] LABS: BLOOD UREA NITROGEN 42 MG/DL (9-23); CALCIUM LEVEL 7.9 MG/DL (8.5-10.1); CARBON DIOXIDE LEVEL 28 MMOL/L (20-31); CHLORIDE LEVEL 121 MMOL/L (98-107); CREATININE FOR GFR 0.69 MG/DL (0.70-1.30); GLOMERULAR FILTRATION RATE > 60.0 (>56); GLUCOSE, FASTING 167 MG/DL (60-100); SODIUM LEVEL 151 MMOL/L (136-145)
[2024-08-03] MEDS: VALPROIC ACID 250MG/5ML SOL ORAL SYRINGE GT SCH (22:19)
[2024-08-04 01:16] LABS: BLOOD UREA NITROGEN 38 MG/DL (9-23); CALCIUM LEVEL 8.2 MG/DL (8.5-10.1); CARBON DIOXIDE LEVEL 25 MMOL/L (20-31); CHLORIDE LEVEL 117 MMOL/L (98-107); CREATININE FOR GFR 0.61 MG/DL (0.70-1.30); GLOMERULAR FILTRATION RATE > 60.0 (>56); GLUCOSE, FASTING 200 MG/DL (60-100); POTASSIUM SERUM 3.9 MMOL/L (3.5-5.1); SODIUM LEVEL 152 MMOL/L (136-145)
[2024-08-04 07:03] LABS: HEMATOCRIT 38.3 % (42.0-52.0); HEMOGLOBIN 12.5 g/dl (13.5-17.5); MEAN CORPUSCULAR HEMOGLOBIN 33.2 pg (27.0-33.0); MEAN CORPUSCULAR HGB CONC 32.6 g/dl (32.0-36.5); MEAN CORPUSCULAR VOLUME 101.9 fl (80.0-96.0); RED BLOOD COUNT 3.76 10^6/uL (4.30-6.10); WHITE BLOOD COUNT 5.3 10^3/uL (4.0-10.0)
[2024-08-04 07:24] LABS: BLOOD UREA NITROGEN 37 MG/DL (9-23); CALCIUM LEVEL 8.3 MG/DL (8.5-10.1); CARBON DIOXIDE LEVEL 25 MMOL/L (20-31); CHLORIDE LEVEL 116 MMOL/L (98-107); CREATININE FOR GFR 0.51 MG/DL (0.70-1.30); GLOMERULAR FILTRATION RATE > 60.0 (>56); GLUCOSE, FASTING 166 MG/DL (60-100); POTASSIUM SERUM 3.7 MMOL/L (3.5-5.1); SODIUM LEVEL 152 MMOL/L (136-145)
[2024-08-04 07:25] LABS: ALBUMIN 2.1 G/DL (3.2-5.2); ALKALINE PHOSPHATASE 87 U/L (40-129); ALT/SGPT 63 U/L (7.0-40); AST/SGOT 63 U/L (<34); BILIRUBIN,TOTAL 0.6 MG/DL (0.3-1.2); BLOOD UREA NITROGEN 35 MG/DL (9-23); CALCIUM LEVEL 8.3 MG/DL (8.5-10.1); CARBON DIOXIDE LEVEL 24 MMOL/L (20-31); CHLORIDE LEVEL 117 MMOL/L (98-107); CREATININE FOR GFR 0.52 MG/DL (0.70-1.30); GLOMERULAR FILTRATION RATE > 60.0 (>56); GLUCOSE, FASTING 167 MG/DL (60-100); POTASSIUM SERUM 3.6 MMOL/L (3.5-5.1); SODIUM LEVEL 152 MMOL/L (136-145); TOTAL PROTEIN 6.6 G/DL (5.7-8.2)
[2024-08-04 07:33] LABS: PLATELET COUNT, AUTOMATED 84 10^3/uL (150-450)
[2024-08-04] MEDS ORDERED: FERROUS SULFATE 325MG TAB GT SCH (09:00)
[2024-08-04] MEDS ORDERED: MULTIVITAMINS/MINERALS THERAP 1 TAB XX SCH (09:00)
[2024-08-04] MEDS ORDERED: TAMSULOSIN 0.4 MG CAP XX SCH (09:00)
[2024-08-04 09:23] LABS: BLOOD UREA NITROGEN 35 MG/DL (9-23); CALCIUM LEVEL 7.8 MG/DL (8.5-10.1); CARBON DIOXIDE LEVEL 28 MMOL/L (20-31); CHLORIDE LEVEL 119 MMOL/L (98-107); GLOMERULAR FILTRATION RATE > 60.0 (>56); GLUCOSE, FASTING 172 MG/DL (60-100); POTASSIUM SERUM 3.8 MMOL/L (3.5-5.1); SODIUM LEVEL 150 MMOL/L (136-145)
[2024-08-04] MEDS: OMEPRAZOLE/SODIUM BICARB 20-840MG 10ML ORAL SYRINGE GT SCH (11:12)
[2024-08-04] MEDS: MULTIVITAMIN/MINERALS LIQUID 15ML ORAL SYRINGE GT SCH (11:13)
[2024-08-04] MEDS: FERROUS SULFATE 300MG/5ML UDC LIQUID GT SCH (11:13)
[2024-08-04] MEDS: ASPIRIN 81MG CHEW TABLET GT SCH (11:13)
[2024-08-04] MEDS: D5W 500 ML IV ONE (11:28)
[2024-08-04] MEDS ORDERED: GLUCAGON INJ 1MG VIAL SC PRN (14:30)
[2024-08-04] MEDS ORDERED: GLUCOSE 4 GM CHEW PO PRN (14:30)
[2024-08-04] MEDS ORDERED: DEXTROSE 50% 50ML SYRINGE IV PRN (14:30)
[2024-08-04] MEDS ORDERED: ISOVUE-370 76% 100ML VIAL As Ordered ONE (14:37)
[2024-08-04 14:47] LABS: BLOOD UREA NITROGEN 34 MG/DL (9-23); CALCIUM LEVEL 7.8 MG/DL (8.5-10.1); CARBON DIOXIDE LEVEL 24 MMOL/L (20-31); CHLORIDE LEVEL 113 MMOL/L (98-107); CREATININE FOR GFR 0.48 MG/DL (0.70-1.30); GLOMERULAR FILTRATION RATE > 60.0 (>56); GLUCOSE, FASTING 259 MG/DL (60-100); POTASSIUM SERUM 3.7 MMOL/L (3.5-5.1); SODIUM LEVEL 147 MMOL/L (136-145)
[2024-08-04] MEDS: LR 1,000 ML IV ONE ×2 (15:08→16:01)
[2024-08-04 15:13] LABS: ABG BASE EXCESS -2.3 (-2.0-2.0); ABG HCO3 22.7 MMOL/L (22.0-26.0); ABG PARTIAL PRESSURE CO2 39.8 mmHg (35.0-45.0); ABG PARTIAL PRESSURE O2 83.7 mmHg (75.0-100.0); ABG STANDARD HCO3 22.5 MMOL/L. (22.0-26.0); ABG TOTAL CO2 23.9 MMOL/L (22.0-29.0); ABG pH (ARTERIAL) 7.374 UNITS (7.350-7.450)
[2024-08-04] MEDS: HYDROCORTISONE 100MG/2ML VIAL IV SCH (15:37)
[2024-08-04] MEDS: DOXYCYCLINE HYCLATE 100 MG in DEXTROSE 5% (D5W) MINI-BAG PLU 100 ML IV SCH (16:01)
[2024-08-04 16:07] LABS: BASO % 0.2 % (0.0-1.0); HEMATOCRIT 32.2 % (42.0-52.0); HEMOGLOBIN 10.4 g/dl (13.5-17.5); LYMPH # 0.8 10^3/uL (1.5-5.0); MEAN CORPUSCULAR HGB CONC 32.3 g/dl (32.0-36.5); MEAN CORPUSCULAR VOLUME 102.2 fl (80.0-96.0); MONO # 0.4 10^3/uL (0.0-0.8); MONO % 8.1 % (2.0-8.0); NEUTROPHILS # 4.2 10^3/uL (1.5-8.5); NEUTROPHILS % 77.5 % (36.0-66.0); RED BLOOD COUNT 3.15 10^6/uL (4.30-6.10); WHITE BLOOD COUNT 5.4 10^3/uL (4.0-10.0)
[2024-08-04 16:16] LABS: PLATELET COUNT, AUTOMATED 79 10^3/uL (150-450)
[2024-08-04 17:06] LABS: ALBUMIN 2.1 G/DL (3.2-5.2); ALKALINE PHOSPHATASE 85 U/L (40-129); ALT/SGPT 61 U/L (7.0-40); AST/SGOT 65 U/L (<34); BILIRUBIN,DIRECT 0.1 MG/DL (<0.4); BILIRUBIN,TOTAL 0.4 MG/DL (0.3-1.2); TOTAL PROTEIN 6.2 G/DL (5.7-8.2)
[2024-08-04] MEDS: CEFEPIME HCL 2 GM in DEXTROSE 5% (D5W) ADV/MINI-BAG 50 ML IV SCH (17:14)
[2024-08-04] MEDS: NOREPINEPHRINE 4MG IN D5 250ML 4 MG in IV 1 EA IV SCH (17:20)
[2024-08-04] MEDS: metroNIDAZOLE 500 MG in IV 1 EA IV SCH (17:57)
[2024-08-04 20:49] LABS: BLOOD UREA NITROGEN 25 MG/DL (9-23); CALCIUM LEVEL 7.4 MG/DL (8.5-10.1); CARBON DIOXIDE LEVEL 26 MMOL/L (20-31); CHLORIDE LEVEL 113 MMOL/L (98-107); CREATININE FOR GFR 0.47 MG/DL (0.70-1.30); GLOMERULAR FILTRATION RATE > 60.0 (>56); GLUCOSE, FASTING 213 MG/DL (60-100); POTASSIUM SERUM 3.4 MMOL/L (3.5-5.1); SODIUM LEVEL 144 MMOL/L (136-145)
[2024-08-05] VITALS (37 sets, daily range): BP systolic 87–124; BP diastolic 50–67; TEMP 97–97.8; O2SAT 91–99
[2024-08-05] MEDS: VASOPRESSIN IN 0.9 % NACL 20 UNIT in IV 1 EA IV SCH (01:28)
[2024-08-05 03:06] LABS: HEMATOCRIT 37.4 % (42.0-52.0); HEMOGLOBIN 12.7 g/dl (13.5-17.5); MEAN CORPUSCULAR HEMOGLOBIN 33.4 pg (27.0-33.0); MEAN CORPUSCULAR VOLUME 98.4 fl (80.0-96.0)
[2024-08-05 03:13] LABS: PLATELET COUNT, AUTOMATED 97 10^3/uL (150-450)
[2024-08-05 03:34] LABS: ALKALINE PHOSPHATASE 87 U/L (40-129); ALT/SGPT 49 U/L (7.0-40); AST/SGOT 47 U/L (<34); BILIRUBIN,TOTAL 0.3 MG/DL (0.3-1.2); BLOOD UREA NITROGEN 18 MG/DL (9-23); CALCIUM LEVEL 7.5 MG/DL (8.5-10.1); CARBON DIOXIDE LEVEL 27 MMOL/L (20-31); CHLORIDE LEVEL 113 MMOL/L (98-107); CREATININE FOR GFR 0.51 MG/DL (0.70-1.30); GLOMERULAR FILTRATION RATE > 60.0 (>56); GLUCOSE, FASTING 170 MG/DL (60-100); POTASSIUM SERUM 3.6 MMOL/L (3.5-5.1); SODIUM LEVEL 150 MMOL/L (136-145)
[2024-08-05] MEDS: HYDROCORTISONE 100MG/2ML VIAL IV SCH (09:26)
[2024-08-05 09:32] LABS: BLOOD UREA NITROGEN 16 MG/DL (9-23); CARBON DIOXIDE LEVEL 28 MMOL/L (20-31); CHLORIDE LEVEL 113 MMOL/L (98-107); CREATININE FOR GFR 0.45 MG/DL (0.70-1.30); GLOMERULAR FILTRATION RATE > 60.0 (>56); GLUCOSE, FASTING 144 MG/DL (60-100); MAGNESIUM LEVEL 1.5 MG/DL (1.8-2.4); PHOSPHORUS LEVEL 2.4 MG/DL (2.5-4.9); POTASSIUM SERUM 3.5 MMOL/L (3.5-5.1); SODIUM LEVEL 150 MMOL/L (136-145)
[2024-08-05] MEDS ORDERED: NS IV ONE (09:50)
[2024-08-05] MEDS ORDERED: LACOSAMIDE IV ONE (09:50)
[2024-08-05] MEDS ORDERED: MAG SULF 1GM/100ML (MAG RUN) 1 GM in IV 1 EA IV ONE (11:00)
[2024-08-05] MEDS ORDERED: POTASSIUM PHOSPHATE INJ 30 MMOL in D5W 500 ML IV ONE (11:00)
== END 2024-08-05 10:56 | disposition short-term general hospital (02) | DRG 871 ==
LOC: M ED 13:10 → EDBD 13:10 → M ED INP 17:35 → M ICU 08-05 00:52
PROVIDERS: ADMIT Internal Medicine; ATTEND Internal Medicine Pulmonary Disease
DX: A41.9 Sepsis, unspecified organism (principal); U07.1 COVID-19; R65.21 Severe sepsis with septic shock; R53.2 Functional quadriplegia; G93.41 Metabolic encephalopathy; I69.354 Hemiplegia and hemiparesis following cerebral infarction affecting left non-dominant side; E87.0 Hyperosmolality and hypernatremia; K83.09 Other cholangitis; R09.02 Hypoxemia; G40.909 Epilepsy, unspecified, not intractable, without status epilepticus; N40.0 Benign prostatic hyperplasia without lower urinary tract symptoms; K21.9 Gastro-esophageal reflux disease without esophagitis; D69.6 Thrombocytopenia, unspecified; R74.01 Elevation of levels of liver transaminase levels; E86.0 Dehydration; Z79.82 Long term (current) use of aspirin; Z79.899 Other long term (current) drug therapy; Z88.0 Allergy status to penicillin; Z88.1 Allergy status to other antibiotic agents; Z88.8 Allergy status to other drugs, medicaments and biological substances; Z91.018 Allergy to other foods; Z87.820 Personal history of traumatic brain injury

== ENCOUNTER 2024-09-16 22:09 | Inpatient (IN) | payer MEDICARE, MEDICAID ==
[~2024-09-16] VITALS: Ht 160 cm; Wt 72.9 kg
[2024-09-16] MEDS: NS (Normal Saline) 0.9% 2,100 ML in IV 1 EA IV ONE (22:50)
[2024-09-16] MEDS ORDERED: DEXTROSE 50% 50ML SYRINGE As Ordered ONE (22:53)
[2024-09-16 22:55] LABS: VENOUS BASE EXCESS -1.4 (-2.0-2.0); VENOUS HCO3 26.2 MMOL/L (23.0-27.0); VENOUS O2 SATURATION 80.4 % (60.0-80.0); VENOUS PARTIAL PRESSURE CO2 55.6 mmHg (38.0-50.0); VENOUS PARTIAL PRESSURE O2 47.8 mmHg (30.0-50.0); VENOUS PH 7.291 UNITS (7.330-7.430); VENOUS STANDARD HCO3 22.8 MMOL/L; VENOUS TOTAL CO2 27.9 MMOL/L (24.0-28.0)
[2024-09-16 23:05] LABS: APPEARANCE, URINE HAZY (CLEAR); BACTERIA, URINE AUTO NEGATIVE (NEGATIVE); BILIRUBIN, URINE AUTO NEGATIVE (NEGATIVE); BLOOD, URINE BLOOD NEGATIVE (NEGATIVE); COLOR, URINE YELLOW (YELLOW); GLUCOSE, URINE (UA) AUTO NEGATIVE (NEGATIVE); KETONE, URINE AUTO NEGATIVE (NEGATIVE); LEUKOCYTE ESTERASE, URINE AUTO NEGATIVE (NEGATIVE); MUCUS, URINE SMALL (NEGATIVE); NITRITE, URINE AUTO NEGATIVE (NEGATIVE); PROTEIN, URINE AUTO 1+ mg/dL (NEGATIVE); RBC, URINE AUTO 0 /HPF (0-3); SPECIFIC GRAVITY URINE AUTO 1.024 (1.002-1.035); SQUAMOUS EPITHELIAL CELL UR AU 0 /HPF (0-6); UROBILINOGEN, URINE AUTO 0.2 mg/dL (0.0-2.0); WBC, URINE AUTO 3 /HPF (0-3)
[2024-09-16] MEDS: DEXTROSE 50% 50ML VIAL IV ONE (23:05)
[2024-09-16 23:09] LABS: BASO % 0.2 % (0.0-1.0); EOS # 0.2 10^3/uL (0.0-0.5); EOS % 4.4 % (0.0-3.0); HEMATOCRIT 44.2 % (42.0-52.0); HEMOGLOBIN 14.5 g/dl (13.5-17.5); LYMPH # 0.6 10^3/uL (1.5-5.0); LYMPH % 11.7 % (24.0-44.0); MEAN CORPUSCULAR HEMOGLOBIN 35.5 pg (27.0-33.0); MEAN CORPUSCULAR HGB CONC 32.8 g/dl (32.0-36.5); MEAN CORPUSCULAR VOLUME 108.1 fl (80.0-96.0); MONO # 0.8 10^3/uL (0.0-0.8); MONO % 15.3 % (2.0-8.0); NEUTROPHILS # 3.3 10^3/uL (1.5-8.5); NEUTROPHILS % 67.2 % (36.0-66.0); PLATELET COUNT, AUTOMATED 101 10^3/uL (150-450); RED BLOOD COUNT 4.09 10^6/uL (4.30-6.10)
[2024-09-16 23:23] LABS: INR 0.95
[2024-09-16 23:28] LABS: CK-MB VALUE MASS 2.8 NG/ML (<3.6)
[2024-09-16 23:29] LABS: C REACTIVE PROTEIN QUANTITATIV 3.74 MG/DL (<1.0)
[2024-09-16 23:30] LABS: AMYLASE 52 U/L (30-118); CPK CREATINE PHOSPHOKINASE 37 U/L (46-171); MB/CK RELATIVE INDEX 7.56 (< OR =4)
[2024-09-16 23:36] LABS: PROCALCITONIN 0.07 ng/ml
[2024-09-16 23:42] LABS: ALBUMIN 3.2 G/DL (3.2-5.2); ALKALINE PHOSPHATASE 109 U/L (40-129); ALT/SGPT 83 U/L (7.0-40); AST/SGOT 46 U/L (<34); BILIRUBIN,DIRECT 0.2 MG/DL (<0.4); BILIRUBIN,TOTAL 0.4 MG/DL (0.3-1.2); BLOOD UREA NITROGEN 44 MG/DL (9-23); CALCIUM LEVEL 9.2 MG/DL (8.5-10.1); CARBON DIOXIDE LEVEL 27 MMOL/L (20-31); CHLORIDE LEVEL 112 MMOL/L (98-107); CREATININE FOR GFR 0.49 MG/DL (0.70-1.30); GLOMERULAR FILTRATION RATE > 60.0 (>56); GLUCOSE, FASTING 63 MG/DL (60-100); POTASSIUM SERUM 5.2 MMOL/L (3.5-5.1); SODIUM LEVEL 148 MMOL/L (136-145); TOTAL PROTEIN 6.7 G/DL (5.7-8.2)
[2024-09-17] VITALS (66 sets, daily range): BP systolic 84–114; BP diastolic 50–66; TEMP 95.9–97; O2SAT 80–98
[2024-09-17] MEDS: CEFEPIME HCL 2 GM in DEXTROSE 5% (D5W) ADV/MINI-BAG 50 ML IV ONE (00:15)
[2024-09-17] MEDS: NOREPINEPHRINE 4MG IN D5 250ML 4 MG in IV 1 EA IV SCH ×2 (00:23→06:06)
[2024-09-17] MEDS: NS (Normal Saline) 0.9% 1,000 ML IV SCH (00:25)
[2024-09-17] MEDS ORDERED: ISOVUE-370 76% 100ML VIAL As Ordered ONE (04:56)
[2024-09-17] MEDS ORDERED: HOME MED LIST COMPLETE! XX SCH (06:00)
[2024-09-17] MEDS ORDERED: VITA-199 GT (06:00)
[2024-09-17] MEDS: HYDROCORTISONE 100MG/2ML VIAL IV ONE (06:58)
[2024-09-17 07:36] LABS: THYROID STIMULATING HORMONE 7.819 uIU/ML (0.55-4.78)
[2024-09-17 07:37] LABS: CORTISOL AM 13.3 UG/DL (4.3-22.4)
[2024-09-17] MEDS: IPRATROPIUM 0.5MG/ALBUTEROL 2.5MG INH SOL UD 3ML (DUONEB) NEB SCH (08:00)
[2024-09-17] MEDS: PANTOPRAZOLE 40MG VIAL IV SCH (09:03)
[2024-09-17] MEDS: ENOXAPARIN 40MG/0.4ML SYRINGE (J1650 PER 10MG) SC SCH (09:03)
[2024-09-17] MEDS: cefTRIAXone SOD 2 GM in DEXTROSE 5% (D5W) ADV/MINI-BAG 50 ML IV SCH (09:03)
[2024-09-17 09:43] LABS: MAGNESIUM LEVEL 1.8 MG/DL (1.8-2.4); PHOSPHORUS LEVEL 2.6 MG/DL (2.5-4.9)
[2024-09-17 09:46] LABS: FREE T4 0.97 NG/DL (0.89-1.76)
[2024-09-17] MEDS: metroNIDAZOLE 500 MG in IV 1 EA IV SCH (12:01)
[2024-09-17] MEDS ORDERED: ONDANSETRON 4MG TAB GT PRN (12:55)
[2024-09-17] MEDS: FERROUS SULFATE 325MG TAB GT SCH (14:03)
[2024-09-17] MEDS: HYDROCORTISONE 100MG/2ML VIAL IV SCH (14:04)
[2024-09-17] MEDS: D5W/LR 1,000 ML IV SCH (14:04)
[2024-09-17] MEDS: ASPIRIN 81MG CHEW TABLET GT SCH (14:04)
[2024-09-17] MEDS: LACOSAMIDE 10MG/ML 20ML VIAL (VIMPAT) IV SCH (14:04)
[2024-09-17] MEDS: VALPROIC ACID 250MG/5ML SOL ORAL SYRINGE GT SCH (14:46)
[2024-09-17] MEDS: DOXAZOSIN MESYLATE 1 MG TAB GT SCH (15:00)
[2024-09-17 17:24] LABS: BLOOD UREA NITROGEN 21 MG/DL (9-23); CALCIUM LEVEL 7.9 MG/DL (8.5-10.1); CARBON DIOXIDE LEVEL 24 MMOL/L (20-31); CHLORIDE LEVEL 114 MMOL/L (98-107); CREATININE FOR GFR 0.51 MG/DL (0.70-1.30); GLOMERULAR FILTRATION RATE > 60.0 (>56); GLUCOSE, FASTING 170 MG/DL (60-100); POTASSIUM SERUM 3.8 MMOL/L (3.5-5.1); SODIUM LEVEL 147 MMOL/L (136-145)
[2024-09-17] MEDS: CALCIUM GLUCONATE 1,000 MG in DEXTROSE 5% (D5W) MINI-BAG PLU 100 ML IV ONE (19:54)
[2024-09-17] MEDS ORDERED: POTASSIUM CHLORIDE 10% LIQ 20MEQ/15ML UDC GT SCH (21:00)
[2024-09-17] MEDS ORDERED: LACOSAMIDE 50 MG TAB (VIMPAT) PO SCH (21:00)
[2024-09-18] VITALS (101 sets, daily range): BP systolic 71–119; BP diastolic 41–65; TEMP 94.8–99; O2SAT 89–100
[2024-09-18 05:01] LABS: IONIZED CALCIUM 4.7 MG/DL (4.5-5.3)
[2024-09-18 05:09] LABS: BASO % 0.2 % (0.0-1.0); HEMATOCRIT 34.7 % (42.0-52.0); HEMOGLOBIN 11.7 g/dl (13.5-17.5); LYMPH # 0.7 10^3/uL (1.5-5.0); LYMPH % 10.7 % (24.0-44.0); MEAN CORPUSCULAR HEMOGLOBIN 35.3 pg (27.0-33.0); MEAN CORPUSCULAR HGB CONC 33.7 g/dl (32.0-36.5); MEAN CORPUSCULAR VOLUME 104.8 fl (80.0-96.0); MONO # 0.4 10^3/uL (0.0-0.8); NEUTROPHILS % 80.3 % (36.0-66.0); PLATELET COUNT, AUTOMATED 104 10^3/uL (150-450); RED BLOOD COUNT 3.31 10^6/uL (4.30-6.10); WHITE BLOOD COUNT 6.2 10^3/uL (4.0-10.0)
[2024-09-18 05:34] LABS: ALBUMIN 2.5 G/DL (3.2-5.2); ALKALINE PHOSPHATASE 88 U/L (40-129); ALT/SGPT 52 U/L (7.0-40); AST/SGOT 29 U/L (<34); BILIRUBIN,TOTAL 0.4 MG/DL (0.3-1.2); BLOOD UREA NITROGEN 11 MG/DL (9-23); CALCIUM LEVEL 8.6 MG/DL (8.5-10.1); CARBON DIOXIDE LEVEL 26 MMOL/L (20-31); CHLORIDE LEVEL 115 MMOL/L (98-107); CREATININE FOR GFR 0.49 MG/DL (0.70-1.30); GLOMERULAR FILTRATION RATE > 60.0 (>56); GLUCOSE, FASTING 134 MG/DL (60-100); MAGNESIUM LEVEL 1.8 MG/DL (1.8-2.4); POTASSIUM SERUM 3.6 MMOL/L (3.5-5.1); SODIUM LEVEL 150 MMOL/L (136-145); TOTAL PROTEIN 5.6 G/DL (5.7-8.2)
[2024-09-18] MEDS ORDERED: TAMSULOSIN 0.4 MG CAP XX SCH (09:00)
[2024-09-18] MEDS ORDERED: SODIUM CHLORIDE 0.9% INJ 10 ML SYR IV PRN (10:45)
[2024-09-18] MEDS: D5W/0.45% SODIUM CHLORIDE 1,000 ML IV SCH (14:30)
[2024-09-18] MEDS: SODIUM CHLORIDE 0.9% INJ 10 ML SYR IV SCH (18:00)
[2024-09-18] MEDS: HYDROCORTISONE 100MG/2ML VIAL IV SCH (20:34)
[2024-09-19] VITALS (104 sets, daily range): BP systolic 77–121; BP diastolic 41–63; TEMP 96.6–97.7; O2SAT 90–100
[2024-09-19 05:42] LABS: BASO % 0.2 % (0.0-1.0); EOS # 0.1 10^3/uL (0.0-0.5); EOS % 0.9 % (0.0-3.0); HEMATOCRIT 31.9 % (42.0-52.0); HEMOGLOBIN 10.7 g/dl (13.5-17.5); LYMPH % 16.9 % (24.0-44.0); MEAN CORPUSCULAR HEMOGLOBIN 35.1 pg (27.0-33.0); MEAN CORPUSCULAR HGB CONC 33.5 g/dl (32.0-36.5); MEAN CORPUSCULAR VOLUME 104.6 fl (80.0-96.0); MONO # 0.9 10^3/uL (0.0-0.8); MONO % 14.8 % (2.0-8.0); NEUTROPHILS # 3.9 10^3/uL (1.5-8.5); NEUTROPHILS % 65.7 % (36.0-66.0); RED BLOOD COUNT 3.05 10^6/uL (4.30-6.10); WHITE BLOOD COUNT 5.9 10^3/uL (4.0-10.0)
[2024-09-19 06:04] LABS: PLATELET COUNT, AUTOMATED 93 10^3/uL (150-450)
[2024-09-19 06:25] LABS: ALBUMIN 2.3 G/DL (3.2-5.2); ALKALINE PHOSPHATASE 88 U/L (40-129); ALT/SGPT 42 U/L (7.0-40); AST/SGOT 23 U/L (<34); BILIRUBIN,TOTAL 0.3 MG/DL (0.3-1.2); BLOOD UREA NITROGEN 10 MG/DL (9-23); CARBON DIOXIDE LEVEL 29 MMOL/L (20-31); CHLORIDE LEVEL 114 MMOL/L (98-107); GLOMERULAR FILTRATION RATE > 60.0 (>56); GLUCOSE, FASTING 102 MG/DL (60-100); POTASSIUM SERUM 3.3 MMOL/L (3.5-5.1); SODIUM LEVEL 150 MMOL/L (136-145); TOTAL PROTEIN 5.1 G/DL (5.7-8.2)
[2024-09-19] MEDS: POTASSIUM CHLORIDE 10% LIQ 20MEQ/15ML UDC PO ONE (06:44)
[2024-09-19 07:38] LABS: MAGNESIUM LEVEL 1.6 MG/DL (1.8-2.4); PHOSPHORUS LEVEL 2.8 MG/DL (2.5-4.9)
[2024-09-19] MEDS: D5W 1,000 ML IV SCH ×2 (08:33→22:01)
[2024-09-19] MEDS: HYDROCORTISONE 100MG/2ML VIAL IV SCH (09:37)
[2024-09-19] MEDS: MIDODRINE 5 MG TAB PO SCH (09:38)
[2024-09-19] MEDS: MAG SULF 1GM/100ML (MAG RUN) 1 GM in IV 1 EA IV ONE (11:53)
[2024-09-19 19:02] LABS: BLOOD UREA NITROGEN 9 MG/DL (9-23); CALCIUM LEVEL 8.2 MG/DL (8.5-10.1); CARBON DIOXIDE LEVEL 29 MMOL/L (20-31); CHLORIDE LEVEL 111 MMOL/L (98-107); CREATININE FOR GFR 0.49 MG/DL (0.70-1.30); GLOMERULAR FILTRATION RATE > 60.0 (>56); GLUCOSE, FASTING 136 MG/DL (60-100); POTASSIUM SERUM 3.3 MMOL/L (3.5-5.1); SODIUM LEVEL 147 MMOL/L (136-145)
[2024-09-19] MEDS: POTASSIUM CHLORIDE 10MEQ SR TABLET PO ONE (20:25)
[2024-09-19] MEDS ORDERED: KCL 20MEQ IN 100ML SWI (KRUN) 20 MEQ in IV 1 EA IV SCH (21:00)
[2024-09-19 22:03] LABS: BLOOD UREA NITROGEN 9 MG/DL (9-23); CALCIUM LEVEL 7.7 MG/DL (8.5-10.1); CARBON DIOXIDE LEVEL 29 MMOL/L (20-31); CHLORIDE LEVEL 112 MMOL/L (98-107); GLOMERULAR FILTRATION RATE > 60.0 (>56); GLUCOSE, FASTING 92 MG/DL (60-100); POTASSIUM SERUM 3.3 MMOL/L (3.5-5.1); SODIUM LEVEL 149 MMOL/L (136-145)
[2024-09-19] MEDS: ONDANSETRON 4MG 2ML VIAL IV ONE (22:28)
[2024-09-20] VITALS (43 sets, daily range): BP systolic 86–110; BP diastolic 50–60; TEMP 96.6–97.9; O2SAT 89–98
[2024-09-20 04:42] LABS: EOS % 4.2 % (0.0-3.0); HEMATOCRIT 33.2 % (42.0-52.0); HEMOGLOBIN 11.1 g/dl (13.5-17.5); LYMPH % 19.9 % (24.0-44.0); MEAN CORPUSCULAR HEMOGLOBIN 35.5 pg (27.0-33.0); MEAN CORPUSCULAR HGB CONC 33.4 g/dl (32.0-36.5); MEAN CORPUSCULAR VOLUME 106.1 fl (80.0-96.0); MONO % 16.8 % (2.0-8.0); NEUTROPHILS % 57.5 % (36.0-66.0); PLATELET COUNT, AUTOMATED 112 10^3/uL (150-450); RED BLOOD COUNT 3.13 10^6/uL (4.30-6.10); WHITE BLOOD COUNT 7.1 10^3/uL (4.0-10.0)
[2024-09-20 04:43] LABS: BASO % 0.1 % (0.0-1.0); EOS # 0.3 10^3/uL (0.0-0.5); LYMPH # 1.4 10^3/uL (1.5-5.0); MONO # 1.2 10^3/uL (0.0-0.8); NEUTROPHILS # 4.1 10^3/uL (1.5-8.5)
[2024-09-20 05:11] LABS: ALBUMIN 2.3 G/DL (3.2-5.2); ALKALINE PHOSPHATASE 84 U/L (40-129); ALT/SGPT 36 U/L (7.0-40); AST/SGOT 22 U/L (<34); BILIRUBIN,TOTAL 0.3 MG/DL (0.3-1.2); BLOOD UREA NITROGEN 8 MG/DL (9-23); CALCIUM LEVEL 7.8 MG/DL (8.5-10.1); CARBON DIOXIDE LEVEL 31 MMOL/L (20-31); CHLORIDE LEVEL 109 MMOL/L (98-107); CREATININE FOR GFR 0.52 MG/DL (0.70-1.30); GLOMERULAR FILTRATION RATE > 60.0 (>56); GLUCOSE, FASTING 190 MG/DL (60-100); MAGNESIUM LEVEL 1.8 MG/DL (1.8-2.4); PHOSPHORUS LEVEL 3.3 MG/DL (2.5-4.9); POTASSIUM SERUM 3.5 MMOL/L (3.5-5.1); SODIUM LEVEL 144 MMOL/L (136-145); TOTAL PROTEIN 5.1 G/DL (5.7-8.2)
[2024-09-20] MEDS: MIDODRINE 5 MG TAB PO SCH (16:03)
[2024-09-21] VITALS (90 sets, daily range): BP systolic 71–120; BP diastolic 42–79; TEMP 96.8–98.1; O2SAT 85–99
[2024-09-21 10:15] LABS: BASO % 0.2 % (0.0-1.0); EOS # 0.4 10^3/uL (0.0-0.5); EOS % 4.6 % (0.0-3.0); HEMATOCRIT 32.1 % (42.0-52.0); HEMOGLOBIN 10.5 g/dl (13.5-17.5); LYMPH # 1.3 10^3/uL (1.5-5.0); LYMPH % 13.9 % (24.0-44.0); MEAN CORPUSCULAR HEMOGLOBIN 35.4 pg (27.0-33.0); MEAN CORPUSCULAR HGB CONC 32.7 g/dl (32.0-36.5); MEAN CORPUSCULAR VOLUME 108.1 fl (80.0-96.0); MONO % 10.6 % (2.0-8.0); NEUTROPHILS # 6.6 10^3/uL (1.5-8.5); NEUTROPHILS % 70.1 % (36.0-66.0); PLATELET COUNT, AUTOMATED 118 10^3/uL (150-450); RED BLOOD COUNT 2.97 10^6/uL (4.30-6.10); WHITE BLOOD COUNT 9.4 10^3/uL (4.0-10.0)
[2024-09-21] MEDS: VASOPRESSIN IN 0.9 % NACL 20 UNIT in IV 1 EA IV SCH (10:15)
[2024-09-21 10:37] LABS: ALBUMIN 2.4 G/DL (3.2-5.2); ALKALINE PHOSPHATASE 73 U/L (40-129); ALT/SGPT 38 U/L (7.0-40); AST/SGOT 28 U/L (<34); BILIRUBIN,TOTAL 0.2 MG/DL (0.3-1.2); BLOOD UREA NITROGEN 12 MG/DL (9-23); CALCIUM LEVEL 7.8 MG/DL (8.5-10.1); CARBON DIOXIDE LEVEL 32 MMOL/L (20-31); CHLORIDE LEVEL 108 MMOL/L (98-107); CREATININE FOR GFR 0.48 MG/DL (0.70-1.30); GLOMERULAR FILTRATION RATE > 60.0 (>56); GLUCOSE, FASTING 157 MG/DL (60-100); MAGNESIUM LEVEL 1.7 MG/DL (1.8-2.4); POTASSIUM SERUM 3.2 MMOL/L (3.5-5.1); SODIUM LEVEL 146 MMOL/L (136-145); TOTAL PROTEIN 5.2 G/DL (5.7-8.2)
[2024-09-21] MEDS ORDERED: POTASSIUM CHLORIDE 10MEQ SR TABLET PO ONE (12:05)
[2024-09-21] MEDS: POTASSIUM CHLORIDE 10% LIQ 20MEQ/15ML UDC PO ONE (12:38)
[2024-09-21] MEDS: FLUDROCORTISONE ACETATE 0.1 MG TAB PO SCH (12:39)
[2024-09-21] MEDS: LR 1,000 ML IV ONE ×2 (12:39→16:00)
[2024-09-21] MEDS: MAG SULF 1GM/100ML (MAG RUN) 1 GM in IV 1 EA IV ONE (16:00)
[2024-09-21] MEDS ORDERED: VASOPRESSIN IN 0.9 % NACL 20 UNIT in IV 1 EA IV SCH (16:15)
[2024-09-21] MEDS: metroNIDAZOLE 500 MG in IV 1 EA IV SCH (17:27)
[2024-09-21] MEDS: NOREPINEPHRINE 4MG IN D5 250ML 4 MG in IV 1 EA IV SCH (19:35)
[2024-09-22] VITALS (116 sets, daily range): BP systolic 73–147; BP diastolic 37–79; TEMP 97.4–99.7; O2SAT 88–99
[2024-09-22 05:40] LABS: HEMATOCRIT 31.2 % (42.0-52.0); HEMOGLOBIN 10.2 g/dl (13.5-17.5); MEAN CORPUSCULAR HEMOGLOBIN 34.9 pg (27.0-33.0); MEAN CORPUSCULAR HGB CONC 32.7 g/dl (32.0-36.5); MEAN CORPUSCULAR VOLUME 106.8 fl (80.0-96.0); PLATELET COUNT, AUTOMATED 117 10^3/uL (150-450); RED BLOOD COUNT 2.92 10^6/uL (4.30-6.10); WHITE BLOOD COUNT 5.6 10^3/uL (4.0-10.0)
[2024-09-22 06:04] LABS: ALBUMIN 2.1 G/DL (3.2-5.2); ALKALINE PHOSPHATASE 78 U/L (40-129); ALT/SGPT 32 U/L (7.0-40); AST/SGOT 21 U/L (<34); BILIRUBIN,TOTAL 0.3 MG/DL (0.3-1.2); BLOOD UREA NITROGEN 6 MG/DL (9-23); CALCIUM LEVEL 7.8 MG/DL (8.5-10.1); CARBON DIOXIDE LEVEL 34 MMOL/L (20-31); CHLORIDE LEVEL 108 MMOL/L (98-107); CREATININE FOR GFR 0.41 MG/DL (0.70-1.30); GLOMERULAR FILTRATION RATE > 60.0 (>56); GLUCOSE, FASTING 97 MG/DL (60-100); MAGNESIUM LEVEL 1.6 MG/DL (1.8-2.4); POTASSIUM SERUM 3.2 MMOL/L (3.5-5.1); SODIUM LEVEL 147 MMOL/L (136-145); TOTAL PROTEIN 4.7 G/DL (5.7-8.2)
[2024-09-22] MEDS: MAG SULF 1GM/100ML (MAG RUN) 1 GM in IV 1 EA IV ONE (06:43)
[2024-09-22] MEDS: D5W IV ONE (09:41)
[2024-09-22] MEDS: CALCIUM CHLORIDE IV ONE (09:41)
[2024-09-22] MEDS: POTASSIUM CHLORIDE 10% LIQ 20MEQ/15ML UDC PO ONE (09:42)
[2024-09-22] MEDS: cefTRIAXone SOD 2 GM in DEXTROSE 5% (D5W) ADV/MINI-BAG 50 ML IV SCH (10:41)
[2024-09-22] MEDS: DOPamine HCL 400 MG in IV 1 EA IV SCH (17:20)
[2024-09-23] VITALS (39 sets, daily range): BP systolic 74–133; BP diastolic 46–67; TEMP 97.1–99.7; O2SAT 89–94
[2024-09-23 06:57] LABS: BASO % 0.3 % (0.0-1.0); EOS # 0.3 10^3/uL (0.0-0.5); EOS % 4.4 % (0.0-3.0); HEMATOCRIT 32.5 % (42.0-52.0); HEMOGLOBIN 10.7 g/dl (13.5-17.5); LYMPH # 1.2 10^3/uL (1.5-5.0); LYMPH % 17.5 % (24.0-44.0); MEAN CORPUSCULAR HEMOGLOBIN 35.3 pg (27.0-33.0); MEAN CORPUSCULAR HGB CONC 32.9 g/dl (32.0-36.5); MEAN CORPUSCULAR VOLUME 107.3 fl (80.0-96.0); MONO # 0.8 10^3/uL (0.0-0.8); MONO % 11.6 % (2.0-8.0); NEUTROPHILS # 4.6 10^3/uL (1.5-8.5); NEUTROPHILS % 65.3 % (36.0-66.0); PLATELET COUNT, AUTOMATED 153 10^3/uL (150-450); RED BLOOD COUNT 3.03 10^6/uL (4.30-6.10)
[2024-09-23 07:22] LABS: ALBUMIN 2.9 G/DL (3.2-5.2); ALKALINE PHOSPHATASE 78 U/L (40-129); ALT/SGPT 25 U/L (7.0-40); AST/SGOT 19 U/L (<34); BILIRUBIN,TOTAL 0.4 MG/DL (0.3-1.2); BLOOD UREA NITROGEN 10 MG/DL (9-23); CALCIUM LEVEL 8.3 MG/DL (8.5-10.1); CARBON DIOXIDE LEVEL 33 MMOL/L (20-31); CHLORIDE LEVEL 106 MMOL/L (98-107); CREATININE FOR GFR 0.42 MG/DL (0.70-1.30); GLOMERULAR FILTRATION RATE > 60.0 (>56); GLUCOSE, FASTING 88 MG/DL (60-100); MAGNESIUM LEVEL 1.5 MG/DL (1.8-2.4); PHOSPHORUS LEVEL 2.8 MG/DL (2.5-4.9); POTASSIUM SERUM 3.6 MMOL/L (3.5-5.1); SODIUM LEVEL 149 MMOL/L (136-145); TOTAL PROTEIN 5.6 G/DL (5.7-8.2)
[2024-09-23] MEDS: LR 1,000 ML IV ONE ×2 (10:07→11:03)
[2024-09-23] MEDS ORDERED: DOPamine HCL 400 MG in IV 1 EA IV SCH (11:00)
[2024-09-23 14:15] LABS: BLOOD UREA NITROGEN 11 MG/DL (9-23); CALCIUM LEVEL 7.8 MG/DL (8.5-10.1); CARBON DIOXIDE LEVEL 34 MMOL/L (20-31); CHLORIDE LEVEL 109 MMOL/L (98-107); CREATININE FOR GFR 0.41 MG/DL (0.70-1.30); GLOMERULAR FILTRATION RATE > 60.0 (>56); GLUCOSE, FASTING 98 MG/DL (60-100); POTASSIUM SERUM 3.4 MMOL/L (3.5-5.1); SODIUM LEVEL 149 MMOL/L (136-145)
[2024-09-23] MEDS: MAG SULF 1GM/100ML (MAG RUN) 1 GM in IV 1 EA IV SCH (16:12)
[2024-09-23] MEDS: D5W 1,000 ML IV SCH (16:14)
[2024-09-23] MEDS: KCL 10MEQ/100ML SWI (KRUN) 10 MEQ in IV 1 EA IV SCH (16:27)
[2024-09-24] VITALS (8 sets, daily range): BP systolic 96–127; BP diastolic 55–73; TEMP 96.8–97.5; O2SAT 93–97
[2024-09-24 07:23] LABS: BLOOD UREA NITROGEN 7 MG/DL (9-23); CALCIUM LEVEL 7.8 MG/DL (8.5-10.1); CARBON DIOXIDE LEVEL 30 MMOL/L (20-31); CHLORIDE LEVEL 101 MMOL/L (98-107); CREATININE FOR GFR 0.35 MG/DL (0.70-1.30); GLOMERULAR FILTRATION RATE > 60.0 (>56); GLUCOSE, FASTING 328 MG/DL (60-100); MAGNESIUM LEVEL 1.9 MG/DL (1.8-2.4); POTASSIUM SERUM 3.3 MMOL/L (3.5-5.1); SODIUM LEVEL 139 MMOL/L (136-145)
[2024-09-24] MEDS: FERROUS SULFATE 300MG/5ML UDC LIQUID GT SCH (08:05)
[2024-09-24] MEDS ORDERED: GLUCAGON INJ 1MG VIAL SC PRN (12:05)
[2024-09-24] MEDS ORDERED: DEXTROSE 50% 50ML SYRINGE IV PRN (12:05)
[2024-09-24] MEDS ORDERED: GLUCOSE 4 GM CHEW PO PRN (12:05)
[2024-09-24] MEDS: KCL 10MEQ/100ML SWI (KRUN) 10 MEQ in IV 1 EA IV SCH (12:17)
[2024-09-24 18:14] LABS: BLOOD UREA NITROGEN 10 MG/DL (9-23); CALCIUM LEVEL 8.1 MG/DL (8.5-10.1); CARBON DIOXIDE LEVEL 32 MMOL/L (20-31); CHLORIDE LEVEL 106 MMOL/L (98-107); CREATININE FOR GFR 0.33 MG/DL (0.70-1.30); GLOMERULAR FILTRATION RATE > 60.0 (>56); GLUCOSE, FASTING 103 MG/DL (60-100); POTASSIUM SERUM 3.8 MMOL/L (3.5-5.1); SODIUM LEVEL 145 MMOL/L (136-145)
[2024-09-25] VITALS (8 sets, daily range): BP systolic 95–124; BP diastolic 53–68; TEMP 97–97.8; O2SAT 95–98
[2024-09-25 05:31] LABS: BLOOD UREA NITROGEN 12 MG/DL (9-23); CALCIUM LEVEL 8.3 MG/DL (8.5-10.1); CARBON DIOXIDE LEVEL 32 MMOL/L (20-31); CHLORIDE LEVEL 108 MMOL/L (98-107); CREATININE FOR GFR 0.34 MG/DL (0.70-1.30); GLOMERULAR FILTRATION RATE > 60.0 (>56); GLUCOSE, FASTING 96 MG/DL (60-100); MAGNESIUM LEVEL 1.8 MG/DL (1.8-2.4); POTASSIUM SERUM 3.7 MMOL/L (3.5-5.1); SODIUM LEVEL 146 MMOL/L (136-145)
[2024-09-25] MEDS: HYDROCORTISONE 10 MG TAB PO SCH (21:14)
[2024-09-26 03:49] VITALS: BP 113/65; TEMP 97.5; O2SAT 97
[2024-09-26 06:13] LABS: BLOOD UREA NITROGEN 12 MG/DL (9-23); CALCIUM LEVEL 8.5 MG/DL (8.5-10.1); CARBON DIOXIDE LEVEL 32 MMOL/L (20-31); CHLORIDE LEVEL 109 MMOL/L (98-107); CREATININE FOR GFR 0.32 MG/DL (0.70-1.30); GLOMERULAR FILTRATION RATE > 60.0 (>56); GLUCOSE, FASTING 81 MG/DL (60-100); MAGNESIUM LEVEL 1.9 MG/DL (1.8-2.4); POTASSIUM SERUM 3.9 MMOL/L (3.5-5.1); SODIUM LEVEL 149 MMOL/L (136-145)
[2024-09-26 08:34] VITALS: BP 101/60; TEMP 96.6; O2SAT 94
[2024-09-26] MEDS: NS 0.45% 1,000 ML IV ONE ×2 (10:15→11:00)
[2024-09-26] MEDS ORDERED: HYDR-4468 PO (10:53)
[2024-09-26] MEDS ORDERED: MIDO5TA PO (10:53)
[2024-09-26 12:20] VITALS: BP 102/59; TEMP 97; O2SAT 97
[2024-09-26 14:19] LABS: BLOOD UREA NITROGEN 10 MG/DL (9-23); CALCIUM LEVEL 8.2 MG/DL (8.5-10.1); CARBON DIOXIDE LEVEL 30 MMOL/L (20-31); CHLORIDE LEVEL 110 MMOL/L (98-107); CREATININE FOR GFR 0.34 MG/DL (0.70-1.30); GLOMERULAR FILTRATION RATE > 60.0 (>56); GLUCOSE, FASTING 102 MG/DL (60-100); POTASSIUM SERUM 3.2 MMOL/L (3.5-5.1); SODIUM LEVEL 148 MMOL/L (136-145)
[2024-09-26] MEDS: NS 0.45% 1,000 ML IV SCH (15:19)
[2024-09-26 16:48] VITALS: BP 127/58; TEMP 96.6; O2SAT 96
[2024-09-26 19:15] VITALS: BP 119/64; TEMP 97.2; O2SAT 97
[2024-09-26 21:18] LABS: BLOOD UREA NITROGEN 9 MG/DL (9-23); CALCIUM LEVEL 8.5 MG/DL (8.5-10.1); CARBON DIOXIDE LEVEL 30 MMOL/L (20-31); CHLORIDE LEVEL 108 MMOL/L (98-107); CREATININE FOR GFR 0.31 MG/DL (0.70-1.30); GLOMERULAR FILTRATION RATE > 60.0 (>56); GLUCOSE, FASTING 93 MG/DL (60-100); POTASSIUM SERUM 3.4 MMOL/L (3.5-5.1); SODIUM LEVEL 145 MMOL/L (136-145)
[2024-09-27 03:08] VITALS: BP 104/58; TEMP 97; O2SAT 96
[2024-09-27 03:44] LABS: BLOOD UREA NITROGEN 8 MG/DL (9-23); CALCIUM LEVEL 8.2 MG/DL (8.5-10.1); CARBON DIOXIDE LEVEL 30 MMOL/L (20-31); CHLORIDE LEVEL 112 MMOL/L (98-107); CREATININE FOR GFR 0.32 MG/DL (0.70-1.30); GLOMERULAR FILTRATION RATE > 60.0 (>56); GLUCOSE, FASTING 132 MG/DL (60-100); SODIUM LEVEL 150 MMOL/L (136-145)
[2024-09-27 05:57] VITALS: BP 122/64
[2024-09-27 07:04] LABS: BLOOD UREA NITROGEN 9 MG/DL (9-23); CALCIUM LEVEL 8.4 MG/DL (8.5-10.1); CARBON DIOXIDE LEVEL 29 MMOL/L (20-31); CHLORIDE LEVEL 110 MMOL/L (98-107); CREATININE FOR GFR 0.28 MG/DL (0.70-1.30); GLOMERULAR FILTRATION RATE > 60.0 (>56); GLUCOSE, FASTING 125 MG/DL (60-100); MAGNESIUM LEVEL 1.9 MG/DL (1.8-2.4); POTASSIUM SERUM 3.9 MMOL/L (3.5-5.1); SODIUM LEVEL 147 MMOL/L (136-145)
[2024-09-27 07:39] VITALS: BP 125/67; TEMP 97.4; O2SAT 97
[2024-09-27 10:02] LABS: BLOOD UREA NITROGEN 8 MG/DL (9-23); CALCIUM LEVEL 8.3 MG/DL (8.5-10.1); CARBON DIOXIDE LEVEL 29 MMOL/L (20-31); CHLORIDE LEVEL 112 MMOL/L (98-107); CREATININE FOR GFR 0.29 MG/DL (0.70-1.30); GLOMERULAR FILTRATION RATE > 60.0 (>56); GLUCOSE, FASTING 109 MG/DL (60-100); POTASSIUM SERUM 3.5 MMOL/L (3.5-5.1); SODIUM LEVEL 148 MMOL/L (136-145)
[2024-09-27] MEDS: SODIUM CHLORIDE 23.4% INJ 40.8 MEQ in STERILE WATER LITER BAG 1,050 ML IV SCH (12:55)
[2024-09-27 15:36] VITALS: BP 110/68; TEMP 97.6; O2SAT 96
[2024-09-27 16:23] LABS: BLOOD UREA NITROGEN 8 MG/DL (9-23); CALCIUM LEVEL 8.3 MG/DL (8.5-10.1); CARBON DIOXIDE LEVEL 30 MMOL/L (20-31); CHLORIDE LEVEL 109 MMOL/L (98-107); CREATININE FOR GFR 0.26 MG/DL (0.70-1.30); GLOMERULAR FILTRATION RATE > 60.0 (>56); GLUCOSE, FASTING 116 MG/DL (60-100); POTASSIUM SERUM 3.8 MMOL/L (3.5-5.1); SODIUM LEVEL 146 MMOL/L (136-145)
[2024-09-27 19:53] VITALS: BP 128/75; TEMP 97.1; O2SAT 95
[2024-09-27 23:00] LABS: BLOOD UREA NITROGEN 8 MG/DL (9-23); CALCIUM LEVEL 8.2 MG/DL (8.5-10.1); CARBON DIOXIDE LEVEL 28 MMOL/L (20-31); CHLORIDE LEVEL 106 MMOL/L (98-107); CREATININE FOR GFR 0.28 MG/DL (0.70-1.30); GLOMERULAR FILTRATION RATE > 60.0 (>56); GLUCOSE, FASTING 94 MG/DL (60-100); POTASSIUM SERUM 3.5 MMOL/L (3.5-5.1); SODIUM LEVEL 142 MMOL/L (136-145)
[2024-09-27 23:05] VITALS: BP 133/78; TEMP 97; O2SAT 95
[2024-09-28 03:55] VITALS: BP 113/69; TEMP 97.5; O2SAT 95
[2024-09-28 03:59] LABS: BLOOD UREA NITROGEN 6 MG/DL (9-23); CALCIUM LEVEL 8.1 MG/DL (8.5-10.1); CARBON DIOXIDE LEVEL 30 MMOL/L (20-31); CHLORIDE LEVEL 110 MMOL/L (98-107); CREATININE FOR GFR 0.32 MG/DL (0.70-1.30); GLOMERULAR FILTRATION RATE > 60.0 (>56); GLUCOSE, FASTING 103 MG/DL (60-100); POTASSIUM SERUM 3.8 MMOL/L (3.5-5.1); SODIUM LEVEL 148 MMOL/L (136-145)
[2024-09-28 06:21] LABS: BLOOD UREA NITROGEN 5 MG/DL (9-23); CALCIUM LEVEL 7.6 MG/DL (8.5-10.1); CARBON DIOXIDE LEVEL 28 MMOL/L (20-31); CHLORIDE LEVEL 105 MMOL/L (98-107); CREATININE FOR GFR 0.29 MG/DL (0.70-1.30); GLOMERULAR FILTRATION RATE > 60.0 (>56); GLUCOSE, FASTING 85 MG/DL (60-100); MAGNESIUM LEVEL 1.6 MG/DL (1.8-2.4); POTASSIUM SERUM 3.3 MMOL/L (3.5-5.1); SODIUM LEVEL 140 MMOL/L (136-145)
[2024-09-28] MEDS: KCL 10MEQ/100ML SWI (KRUN) 10 MEQ in IV 1 EA IV SCH (09:21)
[2024-09-28] MEDS: HYDROCORTISONE 10 MG TAB PEG SCH (09:22)
[2024-09-28] MEDS: MAG SULF 1GM/100ML (MAG RUN) 1 GM in IV 1 EA IV SCH (09:46)
[2024-09-28 12:00] VITALS: BP 85/57; TEMP 97.3
[2024-09-28 13:01] VITALS: BP 109/66
[2024-09-28] MEDS ORDERED: MIDODRINE 5 MG TAB PEG SCH (14:00)
== END 2024-09-28 13:20 | disposition home or self-care (01) | DRG 871 ==
LOC: M ED 22:09 → M ED INP 09-17 04:44 → M ICU 09-17 06:28 → M PCU 09-23 16:16 → M MS5PR 09-27 22:59
PROVIDERS: ADMIT Student in an Organized Health Care Education/Training Program; ATTEND General Practice
DX: A41.9 Sepsis, unspecified organism (principal); G93.41 Metabolic encephalopathy; R53.2 Functional quadriplegia; R65.21 Severe sepsis with septic shock; I69.354 Hemiplegia and hemiparesis following cerebral infarction affecting left non-dominant side; E87.0 Hyperosmolality and hypernatremia; E27.2 Addisonian crisis; J98.11 Atelectasis; K83.09 Other cholangitis; E87.20 Acidosis, unspecified; G40.909 Epilepsy, unspecified, not intractable, without status epilepticus; D69.6 Thrombocytopenia, unspecified; Z93.1 Gastrostomy status; R74.01 Elevation of levels of liver transaminase levels; K21.9 Gastro-esophageal reflux disease without esophagitis; E87.5 Hyperkalemia; N40.0 Benign prostatic hyperplasia without lower urinary tract symptoms; D50.9 Iron deficiency anemia, unspecified; I10 Essential (primary) hypertension; E87.6 Hypokalemia; E83.42 Hypomagnesemia; J40 Bronchitis, not specified as acute or chronic; R00.1 Bradycardia, unspecified; K44.9 Diaphragmatic hernia without obstruction or gangrene; E88.09 Other disorders of plasma-protein metabolism, not elsewhere classified; Z79.82 Long term (current) use of aspirin; Z88.0 Allergy status to penicillin; Z91.018 Allergy to other foods; Z88.8 Allergy status to other drugs, medicaments and biological substances; Z79.899 Other long term (current) drug therapy; Z86.16 Personal history of COVID-19; R13.12 Dysphagia, oropharyngeal phase

== ENCOUNTER → 2025-06-26 | Outpatient (CLI) | payer MEDICARE, MEDICAID ==
[~2025-06-26] MED LIST changes: -ASPI-655 GT; +ASPI-737 GT; -BACTDSTA; -BACTDSTA PO; +DOXY-442 PO; -DOXY100C82 PO; +FERR300L12 GT; -FERR5MLUD GT; -FLOM0.4C39 GT; -FLOM0.4C39 PO; -LACO150T PO; +LACO150T9 PO; +SULF-8; +SULF-8 PO; +TAMS-18 GT; +TAMS-18 PO; +VITA-199 GT; +ZOLP10TA11 PO; -ZOLP10TA2 PO
[2025-06-26 13:06] LABS: BASO # 0.0 10^3/uL (0.0-0.2); BASO % 0.5 % (0.0-1.0); EOS # 0.4 10^3/uL (0.0-0.5); EOS % 4.8 % (0.0-3.0); LYMPH # 2.4 10^3/uL (1.5-5.0); LYMPH % 30.7 % (24.0-44.0); MONO # 0.9 10^3/uL (0.0-0.8); MONO % 11.4 % (2.0-8.0); NEUTROPHILS # 4.1 10^3/uL (1.5-8.5); NEUTROPHILS % 52.3 % (36.0-66.0); PLATELET COUNT, AUTOMATED 166 10^3/uL (150-450)
[2025-06-26 13:37] LABS: VALPROIC ACID (DEPAKOTE) 93.0 UG/ML (50.0-100.0)
[2025-06-26 13:38] LABS: ALT/SGPT 58 U/L (7.0-40); AST/SGOT 36 U/L (<34); CALCIUM LEVEL 9.9 MG/DL (8.5-10.1); CARBON DIOXIDE LEVEL 34 MMOL/L (20-31); CHLORIDE LEVEL 111 MMOL/L (98-107); CREATININE FOR GFR 0.59 MG/DL (0.70-1.30); GLOMERULAR FILTRATION RATE > 90.0 (>56); POTASSIUM SERUM 5.0 MMOL/L (3.5-5.1); SODIUM LEVEL 155 MMOL/L (136-145)
== END ==
LOC: M LAB 11:47
PROVIDERS: ATTEND Psychiatry & Neurology Neurology
DX: R56.9 Unspecified convulsions (principal)